=== PATIENT | female | born 1980 | race Caucasian/White ===

== ENCOUNTER 2022-03-28 14:56 | Outpatient (CLI) | payer BC, SELFPAY | END 2022-03-28 14:57 | disposition home or self-care (01) | PROVIDERS: PCP Family Medicine; Visit Provider Physician Assistant | DX: N93.8 Other specified abnormal uterine and vaginal bleeding (principal); Z12.4 Encounter for screening for malignant neoplasm of cervix | CPT/HCPCS: 84443; 87624; 88175 ==

== ENCOUNTER 2022-03-28 15:47 | Outpatient (CLI) | payer BC, SELFPAY ==
--- NOTE | 2022-03-28 16:00 | CRLHL7_ITS ---
For Patients: As a result of the Century Cures Act, medical imaging exams and procedure reports are released immediately into your electronic medical record. You may view this report before your referring provider. If you have questions, please contact your health care provider. INDICATION: AUB, right-sided pain/tenderness. TECHNIQUE: Ultrasound pelvis transvaginal for better assessment or to better visualize the endometrium. Real-time sonographic images with spectral and color Doppler imaging of the ovaries were obtained. COMPARISON: None. FINDINGS: Uterus: 9.5 x 5.9 x 4.4 cm. Normal echotexture of the myometrium. No masses. Endometrium: Transvaginal imaging was performed to better evaluate the endometrium. Endometrial thickness measures 8 mm. Per history an endometrial biopsy was done earlier on day of exam. Right ovary measures 4.0 x 2.5 x 2.2 cm and left ovary measures 3.4 x 1.7 x 1.4 cm. Anechoic 1.2 cm right ovarian cyst. 2.3 x 1.6 x 1.0 cm left ovarian cyst. No ovarian or adnexal masses. Normal blood flow in both ovaries. Cul-de-sac: No significant free fluid. IMPRESSION: 1. Endometrium measures 8 mm. No definite polyp or sub mucosal fibroid. 2. Bilateral ovarian cysts. Dictated by Hebert Ramos MD @ 03/29/2022 8:10:41 AM (Electronically Signed)
== END 2022-03-28 15:48 | disposition home or self-care (01) ==
LOC: RAD 15:48
PROVIDERS: PCP Family Medicine; Visit Provider Physician Assistant
DX: N93.8 Other specified abnormal uterine and vaginal bleeding (principal); R10.2 Pelvic and perineal pain; R93.89 Abnormal findings on diagnostic imaging of other specified body structures; N83.202 Unspecified ovarian cyst, left side; N83.201 Unspecified ovarian cyst, right side
CPT/HCPCS: 76830; 76856; 93976

== ENCOUNTER 2022-04-17 10:14 | Emergency (ER) | payer BC, SELFPAY ==
[2022-04-17 10:47] VITALS: BP 136/86; PULSE 76; RESP 18; TEMP 36.4; O2SAT 98; BMI 48.8
--- NOTE | 2022-04-17 13:15 | W.ED.CHARTNO ---
ED Chart Note Chart Note Details Date: 04/17/22 Details: left without being seen
--- OUTSIDE RECORDS SUMMARY | 2022-04-17 15:18 | XMS_ITS | Encounter Summary ---
:1980 Author Organization [facility] Address [address] [place] [address] Care Team Providers Name Role Phone Anny Daily APRN, TARIFF COMPILING CLERK Primary Care Provider [phone] Reason for Visit Procedure/Equipment (Routine) - Incomplete Specialty Diagnoses / Procedures Referred By Contact Refer red To Contact Diagnoses Vaginal bleeding in , first trimester Oliver Robledo MD Procedures US OB <14 Weeks W EV Single US OB Transvaginal [address] [place] [address] Referral ID Status Reason Start Date Expiration Date Visits V isits Requested Authorized [id number] Incomplete 10/25/2019 01/23/2021 1 1 Encounter Details Date Type Department Care Team Description 10/25/2019 Ancillary Procedure [facility] [address] [place] [address] Social History Tobacco Use Types Packs/Day Years Used Date Smoking Tobacco: Former Smokeless Tobacco: Never Comments: few a week Alcohol Use Standard Drinks/Week Comments Yes 0 (1 standard drink = 0.6 oz pure alcoho l) 3 per week Alcohol Habits Answer Date Recorded How often do you have a drink containing alcohol? Not asked How many drinks containing alcohol do you have on a typical Not asked day when you are drinking? How often do you have six or more drinks on one occasion? No t asked Comment: 3 per week 03/14/2019 Sex Assigned at Date Recorded Not on file documented as of this encounter Plan of Treatment Not on filedocumented as of this encounter Procedures Procedure Name Priority Date/Time Associated Diagnosis Comme nts US OB <14 WEEKS W Routine 10/25/2019 10:56 AM Vaginal bleeding in Results for this EV SINGLE SPINDLE CARVER , first procedure a re in trimester the results section. documented in this encounter Results US OB <14 Weeks W EV Single (10/25/2019 10:56 AM SPINDLE CARVER) Anatomical Region Laterality Modality Pelvis Ultrasound Specimen (Source) Anatomical Collection Method Collection Time Re ceived Time Location / / Volume Laterality 10/25/2019 10:26 AM SPINDLE CARVER Impressions 10/25/2019 11:03 AM SPINDLE CARVER COMPARISON: No similar comparison examinations TECHNIQUE: ??Transabdominal and transvag inal imaging was performed. ?? FINDINGS: Gestational sac: Unremarkable. Baxley-rump length measures 0.5 cm, corre sponding to 6w2d gestational age. Cardiac activity is not identified. Right Ovary: Not visualized. Left Ovary: Measures 3.3 x 1.8 x 2.2 cm and contains a probable corpus luteum. No suspicious adnexal masses. Free Fluid: No significant free fluid. GA by LMP:: ??09w6d GA by Prior US: ??N/A GA by today's US: ??6 weeks 2 days FAHAD by today's US: N/A IMPRESSION: There is evidence of an intr auterine gestation with yolk sac and pole. No heart tones are detected, possibly due to early gestational age. Recommend follow-up pelvic ultrasound in 7-10 days with serial beta-hCG. Procedure Note Salvador Pablo MD - 10/25/2019 IMPRESSION COMPARISON: No similar comparison examin ations TECHNIQUE: Transabdominal and transvagin al imaging was performed. FINDINGS: Gestational sac: Unremarkable. Baxley-rump length measures 0.5 cm, corre sponding to 6w2d gestational age. Cardiac activity is not identified. Right Ovary: Not visualized. Left Ovary: Measures 3.3 x 1.8 x 2.2 cm and contains a probable corpus luteum. No suspicious adnexal masses. Free Fluid: No significant free fluid. GA by LMP:: 09w6d GA by Prior US: N/A GA by today's US: 6 weeks 2 days FAHAD by today's US: N/A IMPRESSION: There is evidence of an intr auterine gestation with yolk sac and pole. No heart tones are detected, possibly due to early gestational age. Recommend follow-up pelvic ultrasound in 7-10 days with serial beta-hCG. Oliver Robledo MD RAD US documented in this encounter Visit Diagnoses Not on filedocumented in this encounter Care Teams Dough Catcher Relationship Specialty Start Date End Date Anny Daily, FIRE EXTINGUISHER MECHANIC, TARIFF COMPILING CLERK PCP - General Nurse Practitioner 03/20/18 [address] [place] [address] documented as of this encounter
--- OUTSIDE RECORDS SUMMARY | 2022-04-17 15:18 | XMS_ITS | Encounter Summary ---
:1980 Author Organization [facility] Address [address] [place] [address] Care Team Providers Name Role Phone Anny Daily Sven [place], CUPOLA PATCHER HELPER Primary Care Provider [phone] Reason for Visit Reason Comments APPOINTMENT REQUEST Change appoinment to virtual Encounter Details Date Type Department Care Team Description 06/24/2020 Telephone TRIA Radha Watson, [facility] (Change appoinment to [address] qureshi) [place] [address] [place], [place] [phone] (Wo rk) Social History Tobacco Use Types Packs/Day Years [...] on file documented as of this encounter Nursing Notes Kerry Coker - 06/24/2020 1:02 PM CDT Has the patient recently had surgery or an injury? No How may we help you today? Patient is calling in to see if she can change her appointment today to [facility] appointment. Describe your symptoms/concerns: na When did the issue start: na Have you been seen for this recently?: no [Sample Prep Technician/Appt Center: If yes, please include date and provider.] Is it okay to leave detailed message on your voicemail? yes [Sample Prep Technician/Appt Center: If this call is after 3 p.m., communicate to patient: If we are not able to get back to you by the end of the day and your symptoms worsen please contact the Careline] documented in this encounter Plan of Treatment Not on filedocumented as of this encounter Visit Diagnoses Not on filedocumented in this encounter Care Teams Graphics Editor Relationship Specialty Start Date End Date Anny Daily APRN, CUPOLA PATCHER HELPER PCP - General Nurse Practitioner 03/20/18 [address] [place] [id number] documented as of this encounter
--- OUTSIDE RECORDS SUMMARY | 2022-04-17 15:18 | XMS_ITS | Encounter Summary ---
:1980 Author [facility] Address [address] [place] [address] Care Team Providers Name Role Phone KillianAnny APRN, CNP Primary Care Provider [phone] Reason for Visit Reason Comments COUGH Encounter Details Date Type Department Care Team Description 11/27/2019 Nurse Triage [facility] TomasVernon MD COUGH Medicine [address] [place] [address] [place], [place] [address] [phone] Social History Tobacco Use Types Packs/Day Years [...] documented as of this encounter Nursing Notes Kindra Roper RN - 11/27/2019 12:25 PM CDT Spoke with pt. Developed cough and sinus congestion 7 days ago. Sinuses are mildly swollen, but not painful. Has chills. Cough is productive with yellow phlegm. Had some shortness of breath yesterday that is resolved today. Had a sore throat and body aches for the first few days that have now resolved. Denies fever, wheezing, difficulty breathing, blood tinged sputum. Problem list reviewed as related to this call. A phone visit was determined to be appropriate based on information provided during the consultationand to ensure the safety and care of our patients during the Coronavirus outbreak. Reason for Disposition ??? Patient wants to be seen Protocols used: [id number] Future Appointments Provider Department Center 11/27/2019 2:00 PM Trina Bernardo DO [facility] documented in this encounter Plan of Treatment Not on filedocumented as of this encounter Visit Diagnoses Not on filedocumented in this encounter Care Teams Computer Hardware Designer Relationship Specialty Start Date End Date Anny Daily, CHIEF TECHNICIAN X RAY, REGULAR SENIOR CARE PROVIDER PCP - General Nurse Practitioner 03/20/18 [address] [place] [address] documented as of this encounter
--- OUTSIDE RECORDS SUMMARY | 2022-04-17 15:18 | XMS_ITS | Encounter Summary ---
:1980 Author Organization [facility] Address [address] [place] [address] Care Team Providers Name Role Phone Anny Daily APRN, DISTRIBUTION SPEC Primary Care Provider [phone] Encounter Details Date Type Department Care Team Description 07/14/2020 Lab Visit [facility] ry Hip pain; [address] Chronic SI joint pain [place], [place] [address] Social History Tobacco Use Types Packs/Day Years [...] Name Priority Date/Time Associated Diagnosis Comme nts C-REACTIVE PROTEIN Routine 07/14/2020 1:26 PM Hip pain Results for this HOUSEHOLD PERSONAL ASSISTANT Chronic SI joint procedure a re in pain the results section. TSH, SENSITIVE Routine 07/14/2020 1:26 PM Hip pain Results for this (WITH REFLEX) HOUSEHOLD PERSONAL ASSISTANT Chronic SI joint procedure are in pain the results section. CK, TOTAL Routine 07/14/2020 1:26 PM Hip pain Results for this HOUSEHOLD PERSONAL ASSISTANT Chronic SI joint procedure a re in pain the results section. ESR Routine 07/14/2020 1:26 PM Hip pain Results for this HOUSEHOLD PERSONAL ASSISTANT Chronic SI joint procedure a re in pain the results section. documented in this encounter Results (ABNORMAL) CRP - C Reactive Protein (07/14/2020 1:26 PM HOUSEHOLD PERSONAL ASSISTANT) [facility] Method Time Signature C-Reactive 0.8 (H) 0.0 - 0.7 07/14/2020 [facility] Protein mg/dL 6:53 PM HOUSEHOLD PERSONAL ASSISTANT CENTRAL [facility] Specimen Anatomical Collection Method / Collection Time Recei mia Time (Source) Location / Volume Laterality Blood Venipuncture / 07/14/2020 1:26 07/14/2020 1:26 Unknown PM HOUSEHOLD PERSONAL ASSISTANT PM HOUSEHOLD PERSONAL ASSISTANT Cheryl Roche DO LAB_1 Performing Organization Address City/[facility]/ZIP Code Phon e Number [facility] [address] [address] (ABNORMAL) ESR - Sedimentation Rate (07/14/2020 1:26 PM HOUSEHOLD PERSONAL ASSISTANT) [facility] Method Time Signature Sedimentation Rate 21 (H) 0 - 20 07/14/2020 [facility] mm/hr 8:58 PM [facility] Specimen Anatomical Collection Method / Collection Time Recei mia Time (Source) Location / Volume Laterality Blood Venipuncture / 07/14/2020 1:26 07/14/2020 1:26 Unknown PM HOUSEHOLD PERSONAL ASSISTANT PM HOUSEHOLD PERSONAL ASSISTANT Cheryl Roche DO LAB_1 Performing Organization Address City/[facility]/ZIP [facility] Phon e Number [address] [address] TSH with Free T4 (if TSH Abnormal) (07/14/2020 1:26 PM HOUSEHOLD PERSONAL ASSISTANT) athologist Signature TSH, Reflex 1.47 0.30 - 07/14/2020 [facility] 4.50 7:08 PM HOUSEHOLD PERSONAL ASSISTANT CENTRAL LAB uIU/mL Specimen Anatomical Collection Method / Collection Time Recei mia Time (Source) Location / Volume Laterality Blood Venipuncture / 07/14/2020 1:26 07/14/2020 1:26 Unknown PM HOUSEHOLD PERSONAL ASSISTANT PM HOUSEHOLD PERSONAL ASSISTANT Narrative [facility] CENTRAL LAB - 07/14/2020 7:08 PM HOUSEHOLD PERSONAL ASSISTANT Lab will automatically reflex to Free T4 when TSH results are <0.30 uIU/mL or >4.50 mIU/mL. Cheryl Roche DO LAB_1 Performing Organization Address City/[facility]/ZIP Code [facility]on e Number [facility] [address] [address] CPK - CK Total (07/14/2020 1:26 PM HOUSEHOLD PERSONAL ASSISTANT) athologist Signature CK, Total 80 29 - 168 07/14/2020 [facility] U/L 6:53 PM HOUSEHOLD PERSONAL ASSISTANT CENTRAL LAB Specimen Anatomical Collection Method / Collection Time Recei mia Time (Source) Location / Volume Laterality Blood Venipuncture / 07/14/2020 1:26 07/14/2020 1:26 Unknown PM HOUSEHOLD PERSONAL ASSISTANT PM HOUSEHOLD PERSONAL ASSISTANT Cheryl Roche DO LAB_1 Performing Organization Address [facility] Phon e Number [facility] [address] [address] documented in this encounter Visit Diagnoses Diagnosis Hip pain Pain in joint, pelvic region and thigh Chronic SI joint pain (HRC) Disorders of sacrum documented in this encounter Care Teams Computer Technology Teacher Relationship Specialty Start Date End Date Anny Daily, EMPLOYMENT EDUCATIONAL COORD, DISTRIBUTION SPEC PCP - General Nurse Practitioner 03/20/18 [address] [place] [address] documented as of this encounter
--- OUTSIDE RECORDS SUMMARY | 2022-04-17 15:18 | XMS_ITS | Clinical Summary ---
:1980 [facility] Address [address] [place] [address] Care Team Providers Name Role Phone Anny Daily APRN, IMANI Primary Care Provider [phone] Source Comments You are receiving this document as you are listed as the primary care provider,follow-up provider, or the patient has been referred to you for consultation.This is in compliance with the Medicare and Medicaid EHR Incentive Program,which states Providers who transition their patient to another setting of careor provider of care or refers their patient to another provider of care shouldprovide summarycare record for each transition of care or referral. Fixetude Allergies Active Allergy Reactions Severity Noted Date Comments Adhesive Rash 06/19/2017 Tape adhesive Medications Medication Sig Dispensed Refills Start Date End Date Status 27-0.8 MG Take 1 Tab by 0 Active tablet mouth. B Complex Vitamins (B 0 Active COMPLEX-B12 TR OR) Iron, Ferrous 1 Tab. 0 Active Gluconate, 256 (28 FE) MG TABS Vitamin D, 800 Units. 0 Active Cholecalciferol, 400 units CAPS Zchtexp-Wyogjyawy-Pponr 0 Active in D (CALCIUM MAGNESIUM OR) Active Problems Patient Care Coordination Note Formatting of this note might be differe nt from the original. AMA Morbid Obesity Hx Gastric Bypass NIPT neg (XY) Neg AFP Gender Disclosed - Male Problem Noted Date Elderly primigravida in third trimester 09/28/2017 Obesity affecting in third trimester 018 Previous gastric bypass affecting , antepartu m 06/19/2017 Depression 11/14/2016 Alcohol use disorder, severe, dependence 11/14/2016 CRISTINA (generalized anxiety disorder) 01/13/2016 Parent-child relational problem 01/13/2016 GERD (gastroesophageal reflux disease) 02/24/2014 Overview: Takes Prevacid OTC DDD (degenerative disc disease) 12/01/2013 Iron deficiency anemia 12/01/2013 Migraine 12/01/2013 DJD (degenerative joint disease) 03/01/2012 Overview: low back and right hip Anemia 03/01/2012 Overview: iron deficiency anemia Resolved Problems Problem Noted Date Resolved Date AMA (advanced maternal age) primigravida 35+ 06/19/2017 09/28/2017 Adjustment disorder with depressed mood 04/27/2016 11/14/2016 Borderline personality disorder 03/01/2012 02/25/20 16 Adjustment disorder with depressed mood 03/01/2012 03/16/2016 Lumbago 07/23/2007 03/29/2015 Overview: Pain Low Back Immunizations Name Administration Dates Next Due Flu Vac Preserv Free (3+yrs) 08/07/2008 Influenza IIV4 (Quadrivalent) 0.5mL (30229) 06/19/2017 MMR 03/21/2016 TDAP (ADACEL) 01/10/2011 TDAP (BOOSTRIX) 12/31/2015 Td 05/15/1997 Tdap 09/28/2017 Family History Medical History Relation Name Comments No Known Family HIstory Problems Father Depression Mother Diabetes Mother Mental Disorder Mother Schizophrenia Mother Cataract Maternal Grandfather Glaucoma Maternal Grandfather Parkinsons Maternal Grandfather Cancer Maternal Grandmother breast Amblyopia/Strabismus Negative Family History Macular Degeneration Negative Family History Retinal Detachment Negative Family History Relation Name Status Comments Father Mother Alive Maternal Grandfather Alive Maternal Grandmother Social History Tobacco Use Types Packs/Day Years Used Date Smoking Tobacco: Former Smokeless Tobacco: Never Tobacco Cessation: Counseling Given: No Comments: few a week Alcohol Use Standard Drinks/Week Comments Yes 12 (1 standard drink = 0.6 oz pure alcoh ol) 3 per week Alcohol Habits Answer Date [...] Assigned at Date Recorded Not on file Last Filed Vital Signs Vital Sign Reading Time Taken Comments Blood Pressure 132/80 10/13/2020 3:20 PM COAL SAMPLER Pulse 79 10/25/2019 9:35 AM COAL SAMPLER Temperature 36.3 ??C (97.3 ??F) 10/13/2020 3:20 PM COAL SAMPLER Respiratory Rate 18 10/25/2019 9:35 AM COAL SAMPLER Oxygen Saturation 99% 10/25/2019 9:35 AM COAL SAMPLER Inhaled Oxygen Concentration - - Weight 155.1 kg (342 lb) 10/13/2020 3:20 PM COAL SAMPLER Height 177.8 cm (5' 10) 07/04/2018 10:33 AM CDT Body Mass Index 49.07 07/04/2018 10:33 AM CDT Plan of Treatment Health Maintenance Due Date Last Done Comments HepB (1) 1980 Mammogram 1980 COVID-19 Vaccine (#1) 1980 Pneumococcal (1 - PCV) 1985 Adult Preventive Visit 1997 Pap 03/29/2018 03/29/2015, 01/10/2011 Influenza (#1) 2022 06/19/2017, 08/07/2008 DTaP/Tdap/Td (5 - Tdap) 09/28/2027 09/28/2017, 12/31/2015, 01/10/2011, Additional history exists Zoster/Shingles (1 of 2) 2029 Hep C Screening (Preventive Completed 08/19/2015, 03/08/20 12 Services) HIV Screening (Preventive Completed 05/28/2017, 08/19/2015 Services) HPV Vaccine Aged Out No longer eligib le based on patient 's age to complete this topic HepA Aged Out No longer eligib le based on patient 's age to complete this topic Hib Aged Out No longer eligib le based on patient 's age to complete this topic IPV (Polio) Aged Out No longer eligib le based on patient 's age to complete this topic MCV4 Aged Out No longer eligib le based on patient 's age to complete this topic Insurance Payer Benefit Plan Subscriber ID Effective Phone Address Typ e / Group Dates BCBS BCBS PMA [id number] 2021-Pres [address] Med icaid BLUE [place] [id number] [place] [address] [facility] PM[facility] [id number] 2019-Pre Medicaid sent [id number] 2019-Pres Medicaid DENTAL PLAN ADULT COPAY ent DENTAL Lennie Irene Personal/Famil Self 1980 [address]Home) [place] [id number] Lennie Irene Personal/Famil Self [address] [address] Lennie Irene Personal/Famil Self 1980 [address]Home) [place] [id number] Lennie Irene Personal/Famil Self 1980 [address] [facility] (Home) [place] [id number] Care Teams Field Rep Relationship Specialty Start Date End Date Anny Daily, TRAIN CONTROL TECHNICIAN, GUIDE SETTER PCP - General Nurse Practitioner 03/20/18 [address] [place] [address]
--- OUTSIDE RECORDS SUMMARY | 2022-04-17 15:18 | XMS_ITS | Encounter Summary ---
:1980 Author Organization [facility] Address [address] [place] [address] Care Team Providers Name Role Phone KillianAnny APRN, BOILER WASHER Primary Care Provider [phone] Encounter Details Date Type Department Care Team Description 11/22/2019 elvis Leo [phone] Social History Tobacco Use Types Packs/Day Years [...] on file documented as of this encounter Progress Notes FAMILY MEDICINEELVIS PROVIDER - 11/22/2019 12:00 AM CDT elvis Treatment Plan Diagnosis Influenza Visit Date November 22, 2019 Lennie Irene Date of : 78 Provider Chanda Chau, Nurse Practitioner Note From Provider Was nice chatting with you Lennie! Be sure to read through & follow the enclosed treatment plan. Take care & thank you for using [facility]! Treatment Plan Since you have a virus which is likely influenza, let???s get you started on some iqmt-rbw-meevnqs medications to treat your symptoms. Because you???re within 48 hours, I???ve also prescribed an optional antiviral medication which may help decrease the severity and duration of your illness. Read the Antiviral Medications self-care tip in your treatment plan for help deciding if an antiviral is right for you.I sent your prescription to [facility] . I???ve also listed a few of the best ways to soothe your discomfort and some self-care tips to get you on the road to feeling better. If your symptoms don???t improve after 4 days, or if you have questions, select Help to Request a Call Back and we???ll adjust your treatment for free . Order(s) Tamiflu 75 mg capsule Take 1 capsule twice a day as directed for 5 days Note: Refills: None Sent To: [facility] [address] [place], [place] [id number] Treatment Plan Self Care Tip Topics Antiviral Medications You???re Contagious During a Coronavirus Outbreak Get Rest Stay Hydrated Throat Pain Fever & Pain Relief with Ibuprofen What to Expect If you follow the recommendations I made on the Treatment tab, your symptoms should improve in about4 days. If your symptoms don???t improve after 4 days, or if you have questions, select Help to Request a Call Back and we???ll adjust your treatment for free. What to Watch Out For Give us a call immediately if you experience: ??? Difficulty breathing or wheezing ??? Sudden dizziness ??? Confusion ??? Fevers greater than 103.0 ??F ??? Symptoms improve then worsen ??? Facial pain and pressure ??? Worsening throat pain ??? Productive cough ??? Diarrhea (more than 5 episodes in a 24 hour period)- typically in children My Conditions, Orders, Allergies as of November 22, 2019 Standard condition list None Current orders Tamiflu (oseltamivir) Allergies None [email or web address] Information [email or web address] by [email or web address] We are an online clinic open 26/03. If you have any questions or comments about this visit, please call or email [email or web address] documented in this encounter Plan of Treatment Not on filedocumented as of this encounter Visit Diagnoses Not on filedocumented in this encounter Care Teams General Internist And Physician Leader Relationship Specialty Start Date End Date Anny Daily, COMPRESSOR HOUSE OPERATOR, BOILER WASHER PCP - General Nurse Practitioner 03/20/18 [address] [place] [address] documented as of this encounter
--- OUTSIDE RECORDS SUMMARY | 2022-04-17 15:18 | XMS_ITS | Encounter Summary ---
:1980 Author Organization [facility] Address [address] [place] [address] Care Team Providers Name Role Phone StarkeAnny APRN, REVENUE COORDINATOR Primary Care Provider [phone] Encounter Details Date Type Department Care Team Description 03/30/2021 elvis Leo [phone] Social History Tobacco Use Types Packs/Day Years [...] encounter Progress Notes FAMILY MEDICINEELVIS PROVIDER - 03/30/2021 11:26 AM CDT elvis Treatment Plan Diagnosis Paronychia Visit Date March 30, 2021 Lennie Grayey Date of : 78 Provider Elizabeth Valles, Nurse Practitioner Note From Provider Shamar Hogue - Thanks for speaking with me today and for using Elvis. As we discussed, let's have you soak your toe 4 times a day in warm water. After soaking, dry your toe, apply the prescription topical antibiotic and cover with a bandaid. Repeat this process 3-4 times per day. Watch your toe for any signs of worsening infection - if you notice the redness is spreading up your toe or you notice that your entire toe becomes red, warm, or swollen, you should be seen in person right away in your nearest clinic, urgent care or ED as this may be a sign of a worsening infection. If you have questions at any time, you can always request a call back - we are here to help. Take care - Elizabeth, FISHING BOAT MATE Treatment Plan Since you have a bacterial infection, let?? try a topical antibiotic. I sent a prescription to [facility] . I??e also listed a few of the best ways to soothe your discomfort and some additional self-care tips to promote healing. If your symptoms don't improve after 4 days, or if you have questions, please use the Request a Call Back button and we??l discuss your next steps for free. Order(s) mupirocin 2% ointment Apply a small amount to affected area three times a day for 7 days Note: Refills: None Sent To: [facility] [address] [place] [address] [id number] Treatment Plan Self Care Tip Topics Pain Relief with Ibuprofen Warm Water Soaks What to Expect If you follow the recommendations I made on the Treatment tab, your symptoms should improve in about3-4 days. If your symptoms don't improve after 4 days, or if you have questions, please use the Request a Call Back button and we??l discuss your next steps for free. What to Watch Out For Give us a call if you experience: ??? Red streaks ??? High fever ??? Yellow or green foul smelling discharge ??? Increased swelling or pain ??? Any numbness or tingling My Conditions, Orders, Allergies as of March 30, 2021 Standard condition list None Current orders mupirocin (mupirocin) Allergies None [employer] [facility] [employer] We are an online clinic open 26/03. If you have any questions or comments about this visit, please call or email [email or web address] documented in this encounter Plan of Treatment Not on filedocumented as of this encounter Visit Diagnoses Not on filedocumented in this encounter Care Teams Vp Of Marketing Relationship Specialty Start Date End Date Anny Daily APRN, REVENUE COORDINATOR PCP - General Nurse Practitioner 03/20/18 [id number] [place] AMITA Bearden [id number] documented as of this encounter
--- OUTSIDE RECORDS SUMMARY | 2022-04-17 15:18 | XMS_ITS | Encounter Summary ---
:1980 Author Organization [facility] Address [address] [place] [address] Care Team Providers Name Role Phone Anny Daily APRN, FIELD AGENT Primary Care Provider [phone] Reason for Referral Procedure/Equipment (Routine) - Incomplete Specialty Diagnoses / Procedures Referred By Contact Refer red To Contact Diagnoses Hip pain Chronic SI joint pain ([facility]) Cheryl Roche DO Procedures XR Pelvis Bilat Hips 2+ Views [address] [place], [place] [address] Referral ID Status Reason Start Date Expiration Date Visits V isits Requested Authorized [id number] Incomplete 07/12/2020 10/11/2021 1 1 ERCIAL TIRE SERVICE TECHNICIAN Reason for Visit Reason Comments Video Visit CONSULT Encounter Details Date Type Department Care Team Description 07/12/2020 Telemedicine [facility] [address] Cheryl Roche Fibr omyalgia (Primary Dx); Rheumatology Z, DO Hip pain; [address] onic SI joint pain; [address] Fusion of sacral region of spine; [place], [place] De pression, unspecified depression type; [id number] CRISTINA (generalized anxiety disorder); [phone] (Wo rk) S/P gastric bypass; Breast fe eding status of mother Social History Tobacco Use Types Packs/Day Years [...] on file documented as of this encounter Patient Instructions Patient InstructionsCheryl Roche DO - 07/12/2020 9:30 AM CST Images from the original note were not included. - Labs to rule out other sources of pain - Updated x-ray of hips/si joints Start terrie Chi - slowly work your way up to 30-40 min 3-4 days week Here is some info on fibromyalgia. Fibromyalgia What is it? Fibromyalgia is a syndrome where the main symptoms are fatigue and widespread musculoskeletal pain, not explained by other causes. Typically, the pain is on both sides of the body and above and below the waist. If the pain is more localized to a particular area of the muscles and not all over, it is called myofascial pain. The pain is usually in the muscles, but can also be in the joint areas, where the muscles attach. Visible swelling and heat in the joint areas are not features of fibromyalgia (although sometimes they may feel that way to you). Many patients with fibromyalgia will have at least 11 of 18 of the tender points noted below. The common tender points of fibromyalgia include neck, upper back, sternal area, elbows, buttock, side of the hips, and knees. Other symptoms commonly found in patients with fibromyalgia may include: ??? Disturbed and poor quality sleep - people with fibromyalgia often do not get good ???restorative?? sleep, and may also have problems with leg cramps and restless legs. ??? Depression, anxiety and other mood changes ??? Numbness and tingling in extremities, called paresthesias (other causes such as neurological diseases may need to be ruled out) ??? Irritable bowel syndrome - constipation, diarrhea, bloating, abdominal cramping, often exacerbated by stress, and not explained by other bowel disorders. ??? Irritable bladder ??? Dry eyes and mouth ??? Headaches and facial pain - pain at the temporomandibular joint (TMJ) is common, as are tension and other types of headaches. ??? Heightened sensitivity - some patients will have an increased sensitivity to bright lights, loudnoises, odors such as perfumes, and even light touch. ??? Difficulty concentrating ??? Chest pain, usually from the rib cage and muscles. ??? Dizziness ??? Painful menstrual cramps Cause The exact cause of fibromyalgia is as yet not known. However, some research suggests that up to halfof cases of fibromyalgia may be associated with small fiber neuropathy. This is not too surprising, since many of the medications used for fibromyalgia are also used for neuropathy. Many other factors probably play a role. Recent research has suggested that genetics may contribute. Just as there are people whose genes result in ???strong?? bones or ???weak?? bones, there are people who have abnormalities in their pain processing (the way nerves respond to pain) which may predispose to developing fibromyalgia. External factors also can contribute to developing fibromyalgia. For example, if you beco me depressed, the depression can result in increased musculoskeletal pain. When the depression is treated, the pain can improve. Sometimes the chronic pain of fibromyalgia can increase the likelihood of developing depression, and in that case it is equally important to treat the depression. Poor sleepfor any extended period of time is another factor in the development of fibromyalgia. Healthy peoplewho are sleep deprived often begin to ???ache?? in their muscles. This can then result in a viciouscycle where pain further disturbs sleep which results in even more pain. Many factors like stress, depression, and lack of exercise can affect sleep quality. Frequent ???hot flashes?? during menopause can significantly affect sleep. Sleep can also be affected by poor ???sleep hygiene?? . For example,activities like reading in bed, eating in bed, watching TV in bed, etc., can result in ???confusing?? the body about the purpose of being in bed. Avoiding such activities in bed can allow for better sleep quality. Regular aerobic exercise may be preventative to developing fibromyalgia because it improves sleep and counteracts stress and depression. Along the same lines, lack of aerobic exercise can contribute to the development of fibromyalgia. Other conditions which cause pain including rheumatoidarthritis, connective tissue diseases like lupus and Sjogren???s syndrome can be associated with fibromyalgia. Sometimes a severe trauma (physical or emotional) can predispose to developing fibromyalgia. Risk factors ??? Female gender - Well over 90% of patients with fibromyalgia are women. ??? Younger age - It is unusual to have the first presentation of fibromyalgia occur after age 65. ??? Poor sleep - From whatever cause (pain, stress, restless legs, sleep apnea, legs cramps) can contribute to developing fibromyalgia. ??? Family history - If siblings or parents have had fibromyalgia, this may increase your risk. ??? 2% of the [place] population or 3-6 million people have fibromyalgia Evaluation Usually the laboratory and x-rays findings in fibromyalgia are normal. Some laboratory tests and imaging tests may be considered to rule out other potential causes of pain. The patient???s history andthe physical examination are the most important clues to diagnosing fibromyalgia. TREATMENT Health care providers A number of different providers may assist in the care of your fibromyalgia. Your primary care provider will usually be familiar with fibromyalgia and many of its treatments. Physical medicine and rehabilitation doctors are also experts in the treatment of non-inflammatory musculoskeletal pain and can be helpful in prescribing specific physical therapy regimens. Since many cases of fibromyalgia havesmall fiber neuropathy, visiting with a Neurologist about that may sometimes be helpful. Rheumatologists often assist with ruling out other causes of musculoskeletal pain and making recommendations fortreatment in difficult cases. Other providers such as doctors of chiropractic, physical therapists, o ccupational therapists, acupuncturists, and other alternative providers often play a role. Some psychologists have expertise in helping patients better manage chronic pain. Lpy-fifhyxpyhy-qznct treatments An exercise program is an essential part of counteracting fibromyalgia. You need to know a number ofthings before beginning a program. The best types of exercise to consider are low-impact aerobic activities. Aerobic means getting you hear rate up to 60-80% of maximum (220 minus age). For example, ifyou are 40 years old, the goal heart rate would be 0.6 (220-40) to 0.8(220-40), or 108 to 144. The goal is to find an activity that allows you to maintain this heart rate for 20-30 minutes at least 3 days per week. The best forms of exercise for fibromyalgia are walking, biking, swimming, and water aerobics. Probably the least imposing way to start is a water aerobics program in a heated pool. Many community pools such as the [facility] offer ???fibrocize?? water aerobics programs. A very important pointto remember is to start your exercise program slowly and gradually increase it. Try not to make the mistake of going out the first day and doing a hard workout for 30 minutes. Many patients will feel so poorly after this that they never go back. Start very slowly and gradually increase. It is important to remember, however, that many people will have an increase in pain for several weeks before exercise begins to decrease the pain. Try to persevere through this period. Exercises that cause significant postexercise pain are probably too intense. Other forms of exercise that include muscle strengthening like Pilates and Terrie Chi may be beneficial. Cognitive behavioral therapy is another very helpful intervention for fibromyalgia. Unfortunately, there is no ???magic bullet?? pill to take away all the symptoms of fibromyalgia. Therefore, learninghealthy techniques to better manage pain is imperative. Meditation and relaxation techniques providea way to refocus your mind away from the pain and cope better with it. This type of treatment can also help reduce stress. Occupational therapists at [facility] offer a program called the Lifestyle renewal program (see information on last page), where you can learn these techniques, and the majority of patients report that this is helpful. Pain psychologists at [facility] are another helpful resource. Carolin Kraus, PhD, Debbie Haq M.Ed, LP, Psychologist at [facility] [Chronic pain (headaches, fibromyalgia, etc.) and irritable bowel syndrome - evaluation and treatment], and Daquan Acosta, Ph.D., LP, Psychologist at [facility] (Chronic pain evaluation). Patients may schedule appointments as usual by contacting the Mental Health Department at . An intake counselor will request information on the presenting problem and referral source. A variety of other modalities are helpful for some patients. Massage can help loosen and relax tightmuscles. Acupuncture may help address abnormal pain processing and has been shown in a randomized trial to provide decreased pain. On a practical note, massage and acupuncture are not routinely coveredthrough insurance. Physical therapy with gentle stretching and muscle strengthening can help in someinstances, as can client care specialist. Warm water pool physical therapy at places like the [employer] and [facility] can be prescribed by your physician, if necessary. There are also a number of fibromyalgia support groups. Many patients ask if specific dietary modifications can help, and some patients have found for themselves that certain foods or diets can help or hinder with their pain. To date, there are no specific trials which have shown that one specific food or diet is helpful. However, weight loss can be helpful, and eating a balanced diet to help lose a few pounds is usually beneficial. Although no controlled trials support its recommendation, some patients report that getting regular exposure to morning sunlight can boost mood and wellbeing. Medications Because fibromyalgia is common, more and more medications are being studied and developed to help. While no medicine is yet curative, they can be a useful part of the treatment. The medications for fibromyalgia can in general be thought of to work on one of several areas. Some help with restoring good sleep. Anti- depressants can help treat depression, if it is present. Others work on pain. And some work on several of these areas. Medications which you and your doctor may consider include, but are not limited to: ??? Acetaminophen (Tylenol) - This is a mild, but safe analgesic when taken in doses of 1000 mg, three times daily. ??? NSAIDs (Nonsterioidal anti-inflammatory drugs) - Medications like ibuprofen (Advil) and naproxen(Aleve) sometimes offer some pain relief. They should be taken with food to avoid stomach irritationand not be continued if they offer no benefit. ??? Amitriptyline (Elavil) - Technically an antidepressant, this medicine when used in low doses is helpful for improving sleep. Typical dose would be 10 - 100 mg at night. Side effects could include dry mouth and grogginess. ??? Nortriptyline (Pamelor) - Technically an antidepressant, this medicine when used in low doses ishelpful for improving sleep. Typical dose would be 10 - 100 mg at night. Side effects could include dry mouth and grogginess. ??? Trazodone (Deseryl) - Technically an antidepressant, this medicine when used in low doses is helpful for improving sleep. Typical dose would be 25-150 mg at night. Side effects could include dry mouth and grogginess. ??? Doxepin (Sinequan) - Technically an antidepressant, this medicine when used in low doses is helpful for improving sleep. Typical dose would be 10 - 100 mg at night. Side effects could include dry mouth and grogginess. ??? Milnacipran (Savella) - This is a newer generation of antidepressant, which has shown benefits not only for depression, but also for improving pain, even in those without depression. It increases both serotonin and norepinephrine in the brain. It is now FDA approved for fibromyalgia. Typical dosing is 12.5 - 200 mg/day. ??? Duloxetine (Cymbalta) - This is a newer generation of antidepressant, which has shown benefits not only for depression, but also for improving pain, even in those without depression. It increases both serotonin and norepinephrine in the brain. It is now FDA approved for fibromyalgia. ??? Pramipexole (Mirapex) - This medication was first used to treat Parkinson???s disease and the Restless Leg Syndrome. Recent studies have shown that it can reduce pain levels in fibromyalgia. It hassurprisingly few side effects, but can cause nausea, transient anxiety, or weight loss. Typical doseis starting at 0.25 mg daily and gradually increasing to a maximum of 4.5 mg at night. ??? Gabapentin (Neurontin) - First developed to treat seizures, gabapentin helps block certain nervetransmissions and can reduce nerve pain called neuropathy. It can have some sedative properties and improve sleep in selected patients. Typical dose would be starting at 100 mg at night and gradually increasing as tolerated to as high as 800 mg three times daily. There is now a published trial suggesting that about half of patients get at least a 30% improvement in pain. Sleep can be significantly improved with gabapentin also. ??? Pregabalin (Lyrica) - This is a newer generation cousin of gabapentin, but is more expensive. Typically, the starting dose is 25 mg daily, increasing as tolerated to 150 mg three times daily as tolerated. Lyrica is FDA approved for fibromyalgia. ??? Muscle relaxers: Cyclobenzaprine (Flexeril), carisoprodol (Soma), methocarbamol (Robaxin), metaxalone (Skelaxin), tizanidine (Zanaflex) can be useful to relax to help with relaxation of tight muscles and because of their natural sedative effects can help with sleep also. ??? Opioid pain medicines (codeine, hydrocodone, oxycodone, morphine, etc) are typically NOT recommended as part of the medication program in fibromyalgia. They tend to not control the pain, creating aneed for more and more medication. Some pain specialists will consider their use in selected circumstances. Procedures Sometimes, several very tender muscular areas called trigger points can be injected by your Bed Setter or other providers with a mixture of local anesthetic and a small amount of cortisone. These are called trigger point injections and can often help provide relief to local areas of particularly sore muscles. Prognosis Fibromyalgia is a chronic condition, but can sometimes go away. The goal is to manage it through all of the interventions above. Of importance, it is not typically a progressive or crippling disorder and does not impair function of internal organs. Resources ??? National Fibromyalgia Association 757 002 9318 www.fmaware.org ??? National [place] [facility] Skin Diseases 828 544 9846 www.niams.nih.gov ??? [facility] 791 799 2237 www.[facility].gov What else can be tried? Sometimes, for a minority of patients, the above interventions do not result in control of fibromyalgia. In these cases, you should consider a chronic pain program. Several of these and additional resources are listed below: *[facility] a nursing practice for fibromyalgia patients, has opened at [address] [place] [address], to [facility]. Kim Mendes RN, FIELD AGENT and Micki Decker MS, RN, are the founders and co-owners. [phone] [facility]: may offer biofeedback, physical therapy, warm water pool, chronic pain rehabilitation programs; www.[facility].org ??? [facility] [phone] [facility] [place] [address] Chronic pain rehab program: [email or web address].org/[email or web address] ??? [facility] [place] [phone] [address] [place] [address] ??? [facility] [phone] 100 [place] [address] ??? [facility] [phone] 146 [place] [address] Aquatic therapy, Ada Edgar [phone] [facility] ([facility]) , [address] [place] [address]; Other locations including [place]. [facility] [phone] 2454 [facility], [address]th [place] [address] [facility] Dr[address] Leif Nichole Will 7235 [facility] [address] [email or web address] [facility] - they focus more on back pain, but offer cognitive behavioral therapy. [facility] [phone] [facility] [phone] [phone] www.[facility].[employer]ant (mainly physical and occupational therapy) [facility] (biofeedback, acupuncture, nutrition): [phone] [facility] [phone], 280 [facility] [address], [place] [address] Geovanny Suh MD [phone], network and threat support specialist [address] or [facility], [address] [place] [address] [phone] [facility] (will treat fibromyalgia and chronic pain syndrome in additionto head & neck disorders; also have MedX equipment for chronic back pain). [email or web address] ??? [place]: [address] [facility] [address] , [address], [address]; [phone] ??? [place]: [address] [facility], [address], [address]; [phone] ??? [place]: [address] [facility], [address]; [phone] ??? [place]: [address] [facility], [address], [address]; [phone] Lifestyle Renewal Program - At [facility] [place] The LifeStyle Renewal Program is an integrated program provided by Occupational Therapists to help people work with their symptoms from a variety of treatment techniques. It is customized for each patient. Research shows that an approach which encompasses social and psychological influences as well asphysical factors is effective for decreasing symptoms and improving quality of life. A holistic approach can ease symptoms and improve quality of life. Location: [place] Providers: Occupational Therapists with specialty training. Program: The LifeStyle Renewal Program is specifically tailored for each patient. This specialty program can be beneficial for a wide variety of symptoms and diagnoses, including, but not limited to: Chronic pain Cancer Asthma Depression/Anxiety Myofascial pain syndrome Chronic Fatigue Syndrome Headache/ Migraine Fibromyalgia Low back pain Irritable Bowel Syndrome Rheumatoid Arthritis Other stress related problems Our Program Focus: 1. Deal with the underlying source of pain 2. Establish a partnership between therapist and patient 3. Increase understanding - provide education 4. Use idvi-ebih-ydhhmk therapies to reframe pain/symptom experience 5. Modify behaviors to improve function 6. Relieve stress 7. Set up support systems 8. Increase physical activity 9. Improve sleep Education is provided in the areas of pacing, exercise, relaxation, sleep hygiene, body mechanics, postural awareness, ergonomics, Qigong, Healing Touch, problem solving and adaptive equipment. How to Contact: General information/scheduling ERCIAL TIRE SERVICE TECHNICIAN documented in this encounter Progress Notes Cheryl Roche DO - 07/12/2020 9:30 AM CST Rheumatology Consult Note video Encounter Encounter Date: 07/12/2020 Name of Requesting Clinical Staff: No referring provider defined for this encounter. Reason for consult: Joint pain Subjective: Patient is a 40 y.o. female. HISTORY OF PRESENT ILLNESS Patient has a past medical history of obesity, s/p gastric bypass, acid reflux, depression, osteoarthritis of the lumbar spine, status post right SI joint fusion (20 years ago), who is being evaluated over video visit today for diffuse arthralgias/myalgias. Patient notes that she has had pain in her low back that she about ages 15. Eventually, she was seenby a back pain specialist, and around the age of 19 had a right SI joint fusion because of arthritis. She does feel that that was helpful however the past several she has had increasing pain in the area. She notes the pain is in the low back, but also in the groin, and size of the hip. These areas that are most painful however she does have diffuse body pain from head to toe that is also contributing. Pain in the back is in the Mid to low back over the tail bone and up through lumbat spine. Has pain shooting down leg. No numbness or tingling in the legs. May have intermittent numbness right big toe and under neath, comes and goes. Has weakness in bohth legs, worse on the right. In the past, she has had x-rays of the lumbar spine and pelvic region which did show possible osteoarthritic changes, this was last done in 2012. She has not had any repeat imaging since this time. Shebelieves that she had injection into her right hip many years ago but does not recall if this was helpful. She has also had injections in her low back, primarily L5-S1 area. Has pain in every joint as well including hands. Has general pain from head to toe - started over A year ago. Has been occurring every day for the last month. Does ave some good days but generally is there all day/every day.. Overall pain does seem to woren with activity \especially the day after she has been more active, cleaning around the house. She describes the pain as a burning achy pain. She has stiffness in the morning in all areas will last for several minutes. She believes there has been swelling in the soft tissues, primarily in the hands with some difficulty getting her rings on. NO rashes. No hair loss, mouth sores, no Raynaud symptoms. Has had some dry eye and mouth. She has had weight gain over the past several years as the of her children. Has tried ibuprofen, 800mg does not help. Takes iron, vitamin D, potassium, omega 3. Pre-, calcum and magneiusm. Social hx: no alcoholl or tobacco. No working outside home. Has 2 kids, 4 and 2. Family Hx: no autoimmune history that she is aware. Review of SystemsReview of systems form filled out the the patient for today's visit was reviewed, and is as noted above/ Patient Active Problem List Diagnosis ??? DJD (degenerative joint disease) ??? Anemia ??? GERD (gastroesophageal reflux disease) ??? Previous gastric bypass affecting , antepartum ??? CRISTINA (generalized anxiety disorder) (HRC) ??? Parent-child relational problem ??? Depression (HRC) ??? Alcohol use disorder, severe, dependence (HRC) ??? Elderly primigravida in third trimester ??? Obesity affecting in third trimester ??? DDD (degenerative disc disease) ??? Iron deficiency anemia ??? Migraine Past Surgical History: Procedure Laterality Date ??? CHOLECYSTECTOMY 08/04/2013 Lap Aruna ??? GASTRIC BYPASS 02/27/2014 Lap Catalino-En-Y Gastric Bypass ??? HX APPENDECTOMY 1992 Open, ruptured ??? LAPAROSCOPY 08/04/2013 Lap Aruna ??? LAPAROSCOPY 02/27/2014 Lap Catalino-En-Y Gastric Bypass ??? OTHER SURGICAL HISTORY 2003 SI joint fusion and cage ??? WISDOM TEETH EXTRACTION 1990 OB History 3 Para 2 Term 2 0 AB 0 Living 1 SAB 0 TAB 0 Ectopic 0 Multiple 0 Live Births 1 Family History Problem Relation Age of Onset ??? Cataract Maternal Grandfather ??? Glaucoma Maternal Grandfather ??? Parkinsons Maternal Grandfather ??? Mental Disorder Mother ??? Schizophrenia Mother ??? Depression Mother ??? Diabetes Mother ??? No Known Family HIstory Problems Father ??? Cancer Maternal Grandmother breast ??? Macular Degeneration Negative Family History ??? Retinal Detachment Negative Family History ??? Amblyopia/Strabismus Negative Family History Social History Socioeconomic History ??? Marital status: Spouse name: Carlos ??? Number of children: 1 ??? Years of education: Not on file ??? Highest education level: Not on file Occupational History ??? Occupation: Homemaker Social Needs ??? Financial resource strain: Not on file ??? Food insecurity Worry: Not on file Inability: Not on file ??? Transportation needs Medical: Not on file Non-medical: Not on file Tobacco Use ??? Smoking status: Former Smoker ??? Smokeless tobacco: Never Used ??? Tobacco comment: few a week Substance and Sexual Activity ??? Alcohol use: Yes Alcohol/week: 0.0 standard drinks Comment: 3 per week ??? Drug use: No ??? Sexual activity: Yes Partners: Male control/protection: None Lifestyle ??? Physical activity Days per week: Not on file Minutes per session: Not on file ??? Stress: Not on file Relationships ??? Social connections Talks on phone: Not on file Gets together: Not on file Attends temple service: Not on file Active member of club or organization: Not on file Attends meetings of clubs or organizations: Not on file Relationship status: Not on file ??? Intimate partner violence Fear of current or ex partner: Not on file Emotionally abused: Not on file Physically abused: Not on file Forced sexual activity: Not on file Other Topics Concern ??? Bike Helmet Yes ??? [place] Yes ??? Exercise Yes Comment: 7 days per week ??? Guns in home No ??? Seat Belt Yes ??? Special Diet No ??? Weight Concern Yes Social History Narrative ??? Not on file Allergies Allergen Reactions ??? Adhesive Rash Tape adhesive Outpatient Encounter Medications as of 07/12/2020 Medication Sig Note Dispense Refill ??? B Complex Vitamins (B COMPLEX-B12 TR OR) ??? Mnajjfd-Tjlikkeqe-Srqqfjk D (CALCIUM MAGNESIUM OR) ??? Iron, Ferrous Gluconate, 256 (28 FE) MG TABS 1 Tab. 11/12/2017: [facility] Sig: As directed 1 tablet once daily. ??? oseltamivir (TAMIFLU) 75 MG capsule TK 1 C PO BID UTD ??? potassium chloride SA (KLOR-CON) 10 MEQ controlled release tablet Take 10 mEq by mouth two timesa day. ? ? 27-0.8 MG tablet Take 1 Tab by mouth. 05/28/2017: Received from: [facility] Received Sig: Take 1 tablet by mouth once daily. Indications: ??? Vitamin D, Cholecalciferol, 400 units CAPS 800 Units. No facility-administered encounter medications on file as of 07/12/2020. Objective: EXAM LMP 08/15/2019 (Exact Date) General: Comfortable appearing, well developed, well nourished. HEENT: anicteric, noninjected sclerae; no nasal discharge; no oral ulcers, erythema or exudates. Skin: no rash or perigungual erythema Neuro: alert, normal muscle bulk and tone, normal gait. MSK: no joint swelling, tenderness, excessive warmth, or range of motion abnormalities unless noted below: Musculoskeletal:There were paired painful tender points at the occiput, neck, trapezius, supraspinatus, anterior ribs, subacromial bursa, epicondyles, gluteals, trochanters, pes anserine and bilateral shins to self palpation. Neck: Back: Patient has tenderness to self palpation of the lumbar spine and SI joints Upper extremities: Lower extremities: Stance & gait: LABS &/or IMAGING Results for orders placed or performed during the hospital encounter of 10/25/19 UA with Microscopic Result Value Ref Range Urine Color Straw Straw-Yellow Urine Clarity Clear Clear Specific [place], Urine 1.010 1.005 - 1.030 PH Urine 6.5 5.0 - 8.0 Protein, Urine Qual (mg/dL) Negative Neg/Trace Glucose Urine Qual (mg/dL) Negative Negative Ketones, Urine (mg/dL) Negative Negative Urobilinogen, Urine (EU/dL) 0.2 <2.0 Bilirubin Urine Negative Negative Blood, Urine Small (A) Neg/Trace Nitrite Urine Negative Negative Leukocyte Est. Negative Negative Red Blood Cells 4-7 (A) 0 - 3 /HPF White Blood Cells 0-5 0 - 5 /HPF Bacteria Occasional (A) None Seen /HPF Urine Source Clean Catch HCG for -Quantitative (HCG) Result Value Ref Range HCG, Quantitative 14,953 (H) <=4 mIU/mL Complete Blood Count-W/Diff Result Value Ref Range WBC 10.9 (H) 3.5 - 10.5 x10(9)/L RBC 4.21 3.90 - 5.03 x10(12)/L Hemoglobin 12.6 12.0 - 15.5 g/dL HCT 39.4 34.9 - 44.5 % MCV 93.6 80.0 - 100.0 fL MCH 29.9 27.6 - 33.3 pg MCHC 32.0 31.5 - 35.2 g/dL RDW 12.3 11.9 - 15.5 % Platelets 307 150 - 450 x10(9)/L Automated NRBC 0 <=0 /100 WBC Neutrophil Absolute 7.2 (H) 1.7 - 7.0 10(9)/L Lymphocyte Absolute 2.6 1.0 - 4.8 10(9)/L Monocytes Absolute 0.7 0.2 - 0.9 10(9)/L Eosinophil Absolute 0.3 0.0 - 0.5 10(9)/L Basophil Absolute 0.1 0.0 - 0.3 10(9)/L Immature Gran % 0.4 0.0 - 0.5 % Wet Prep (WTPRP) Result Value Ref Range Fungal Elements Detected (A) Not detected Clue Cells Not Detected Not Detected White Blood Cells Not Detected Not Detected Trich Vaginalis Not Detected Not detected Assessment/Recommendations: 1. Fibromyalgia 2. Hip pain 3. Chronic SI joint pain (HRC) 4. Fusion of sacral region of spine 5. Depression, unspecified depression type (HRC) 6. CRISTINA (generalized anxiety disorder) (HRC) 7. S/P gastric bypass 8. Breast feeding status of mother Patient has a history of multisite osteoarthritis involving the lumbar spine, SI joints, hip joints,status post right SI joint fusion in her early 20s, who is being evaluated over video visit for diffuse body pain. Patient has multiple tender points on self examination today, along with a history of depression/anxiety, fatigue all of which would be suggestive of fibromyalgia. We discussed the diagnosis of fibromyalgia and the patient was given a handout on this syndrome. We discussed that this is a diagnosis of exclusion but that based on her/his exam and the extensive workup that has been done I feel fairly confidant that this is the cause of at least some of her/his symptoms, including her/his pain. We talked about contributing factors such as stress, lack of aerobic exercise, mood disorders, genetics, and chronic non-restorative sleep. The concept of central sensitization and fibromyalgia as a central neurologic pain syndrome was reviewed, it is not a disorder of the joints or muscles themselves, and not an inflammatory or rheumatic disorder. I recommended consideration of a low impact aerobic exercise program, pursuing non medication therapies such as relaxation training, massage, acupuncture, terrie tru. In terms of medications, we reviewed some of the most often used medications which can include tricyclics and trazodone for sleep, duloxetine (Cymbalta) and mi lnacipran (Savella) for mood and pain, tramadol (Ultram) for pain, gabapentin (Neurontin) or pregabalin (Lyrica) for sleep and pain, pramipexole (Mirapex) for pain, and muscle relaxers. Opioid pain medication are not recommended (usually) for fibromyalgia. Even with these available medications, most only help symptoms in 60-70% of patients and only reduce pain score by 40%. Pharmacologic treatment still does not fully address this condition and there is no current curative treatment for this condition yet. Lopez to getting better is to sleep at night and move the body in the daytime. We also discussed that it is a common syndrome and medication adjustments can be made in the primary care setting. At this point, I am recommending patient start Terrie Chi. She is familiar with this modality. She should start slowly, working way up to 30-40 minutes 3 4 days a week. I stressed the importance of movement and the lack and movement can cause worsening fibromyalgia pain. We discussed that this is a diagnosis of exclusion. Will check inflammatory markers CK and TSH. If these are unremarkable then this points even more towards a diagnosis of fibromyalgia. Regards to her low back/groin pain, I think could be worthwhile to update her x- rays as it has been 7 years since this was last done. If there is evidence of 1st osteoarthritis in the hips or SI joints, could consider referral to PMR or Radiology for image guided injection. Will hold off on scheduling follow-up pending further workup. Patient agrees to above plan and all questions were answered Thank you very much for involving me in this patients care Time spent - 60 minutes Greater than 50% of that spent on counseling and education This note created with voice recognition software and may contain typographical errors Cheryl Roche DO ERCIAL TIRE SERVICE TECHNICIAN documented in this encounter Plan of Treatment Not on filedocumented as of this encounter Results (ABNORMAL) CRP - C Reactive Protein (07/14/2020 1:26 PM COMMERCIAL TIRE SERVICE TECHNICIAN) [facility] Method Time Signature C-Reactive 0.8 (H) 0.0 - 0.7 07/14/2020 [facility] Protein mg/dL 6:53 PM COMMERCIAL TIRE SERVICE TECHNICIAN [facility] Specimen Anatomical Collection Method / Collection Time Recei mia Time (Source) Location / Volume Laterality Blood Venipuncture / 07/14/2020 1:26 07/14/2020 1:26 Unknown PM COMMERCIAL TIRE SERVICE TECHNICIAN PM COMMERCIAL TIRE SERVICE TECHNICIAN Cheryl Roche DO LAB_1 Performing Organization Address City/[facility]/ZIP Code Phon e Number [facility] [address] [address] (ABNORMAL) ESR - Sedimentation Rate (07/14/2020 1:26 PM COMMERCIAL TIRE SERVICE TECHNICIAN) [facility] Method Time Signature Sedimentation Rate 21 (H) 0 - 20 07/14/2020 [facility] mm/hr 8:58 PM COMMERCIAL TIRE SERVICE TECHNICIAN [facility] Specimen Anatomical Collection Method / Collection Time Recei mia Time (Source) Location / Volume Laterality Blood Venipuncture / 07/14/2020 1:26 07/14/2020 1:26 Unknown PM COMMERCIAL TIRE SERVICE TECHNICIAN PM COMMERCIAL TIRE SERVICE TECHNICIAN Cheryl Roche DO LAB_1 Performing Organization Address [facility]/ZIP Code Phon e Number [address] [address] TSH with Free T4 (if TSH Abnormal) (07/14/2020 1:26 PM COMMERCIAL TIRE SERVICE TECHNICIAN) athologist Signature TSH, Reflex 1.47 0.30 - 07/14/2020 [facility] 4.50 7:08 PM COMMERCIAL TIRE SERVICE TECHNICIAN [facility] uIU/mL Specimen Anatomical Collection Method / Collection Time Recei mia Time (Source) Location / Volume Laterality Blood Venipuncture / 07/14/2020 1:26 07/14/2020 1:26 Unknown PM COMMERCIAL TIRE SERVICE TECHNICIAN PM COMMERCIAL TIRE SERVICE TECHNICIAN Narrative [facility] - 07/14/2020 7:08 PM COMMERCIAL TIRE SERVICE TECHNICIAN Lab will automatically reflex to Free T4 when TSH results are <0.30 uIU/mL or >4.50 mIU/mL. Cherylaraseli Roche DO LAB_1 Performing Organization Address City/[facility]/ZIP Code Phon e Number [facility] [address] [address] CPK - CK Total (07/14/2020 1:26 PM COMMERCIAL TIRE SERVICE TECHNICIAN) athologist Signature CK, Total 80 29 - 168 07/14/2020 [facility] U/L 6:53 PM COMMERCIAL TIRE SERVICE TECHNICIAN [facility] Specimen Anatomical Collection Method / Collection Time Recei mia Time (Source) Location / Volume Laterality Blood Venipuncture / 07/14/2020 1:26 07/14/2020 1:26 Unknown PM COMMERCIAL TIRE SERVICE TECHNICIAN PM COMMERCIAL TIRE SERVICE TECHNICIAN Cheryl Roche DO LAB_1 Performing Organization Address City/State/ZIP Code Phon e Number [facility] [address] [address] XR Pelvis Bilat Hips 2+ Views (07/14/2020 1:19 PM COMMERCIAL TIRE SERVICE TECHNICIAN) Anatomical Region Laterality Modality Pelvis, Hip Computed Radiography Specimen (Source) Anatomical Collection Method Collection Time Re ceived Time Location / / Volume Laterality 07/14/2020 1:19 PM COMMERCIAL TIRE SERVICE TECHNICIAN Narrative 07/14/2020 1:27 PM COMMERCIAL TIRE SERVICE TECHNICIAN EXAM: XR PELVIS BILAT HIPS 2+ VIEWS LOCATION: [facility] DATE/TIME: 07/14/2020 1:19 PM INDICATION: Sacroiliac joint pain, groin pain status post fusion. COMPARISON: 09/09/2012 IMPRESSION: Fusion hardware at the right SI joint in an unchanged alignment. No fracture. Left SI joint is unremarkable. The hips are symmetric and unremarkable. Procedure Note Jonathan Breaux MD - 07/14/2020Formatt ing of this note might be different from the original. EXAM: XR PELVIS BILAT HIPS 2+ VIEWS LOCATION: [facility] DATE/TIME: 07/14/2020 1:19 PM INDICATION: Sacroiliac joint pain, groin pain status post fusion. COMPARISON: 09/09/2012 IMPRESSION: Fusion hardware at the right SI joint in an unchanged alignment. No fracture. Left SI joint is unremarkable. The hips are symmetric and unremarkable. Cheryl Roche DO RAD GD documented in this encounter Visit Diagnoses Diagnosis Fibromyalgia - Primary Mylagia and myositis, unspecified Hip pain Pain in joint, pelvic region and thigh Chronic SI joint pain (HRC) Disorders of sacrum Fusion of sacral region of spine Depression, unspecified depression type CRISTINA (generalized anxiety disorder) (HRC) Generalized anxiety disorder S/P gastric bypass Bariatric surgery status Breast feeding status of mother care and examination of lacta ting mother Hip pain Pain in joint, pelvic region and thigh Chronic SI joint pain (HRC) Disorders of sacrum documented in this encounter Care Teams Dye House Hand Relationship Specialty Start Date End Date Burnet, Anny M, DELICATESSEN CLERK, FIELD AGENT PCP - General Nurse Practitioner 03/20/[address] [place] [id number] documented as of this encounter
--- OUTSIDE RECORDS SUMMARY | 2022-04-17 15:18 | XMS_ITS | Encounter Summary ---
:1980 Author Organization [facility] Address [address] [place] [address] Care Team Providers Name Role Phone Anny Daily APRN, TRAVEL PHYSICAL THERAPIST Primary Care Provider [phone] Reason for Visit Reason Comments Tenderness, Breast Encounter Details Date Type Department Care Team Description 10/12/2020 Nurse Triage [place] Found, No Pcp, Sven Parrish Tenderness, Breast Obstetrics/Gynecolog y [address] [facility] [address] [place] [place] [address] [address] [place], [place] [address] Social History Tobacco Use Types Packs/Day Years [...] documented as of this encounter Nursing Notes Jocelyn Garcia RN - 10/13/2020 12:40 PM CST Future Appointments Date Time Provider Department Center 10/13/2020 3:30 PM Ayla Barroso DO [facility] IRON LOADER Li Cervantes RN - 10/13/2020 9:15 AM CST Offered appt for this AM in [place]. Patient states she is only able to come in at the end of the day as her recently started a new job. Reviewed with patient she can call back later to check for openings. Otherwise ok to go to urgent care. She voices understanding and acceptance of this advice and will call back if any further questions or concerns. No future appointments. IRON LOADER Lilia Lucas MD - 10/13/2020 8:08 AM CST Pt should be seen for evaluation today or tomorrow. I do not have openings this week, and pt not known to me. Please inquire w/ her primary OB re: work in. IRON LOADER Meghan Salter RN - 10/12/2020 4:19 PM CST Clinician Action: Appointment Work In Reason protocol for breast tenderness/possible infection Clinician Next Step: Patient IS expecting a call back from care team Specific Request(s): 1. Patient noticed a reddened area on L breast that is tender and somewhat warm to the touch about 1/5 weeks ago. States she feels the area is getting bigger. Denies nipple discharge but is currently still so not certain. Denies fever but believes there may be some slight swelling without a palpable lump. Patient has difficulty with childcare R/T starting new job this week. Wondering if she could be worked into a schedule at end of day this week. Declines UC at this time. Reason for Disposition ??? Breast looks infected (spreading redness, feels hot or painful to touch) and no fever Protocols used: BREAST [id number] IRON LOADER documented in this encounter Plan of Treatment Not on filedocumented as of this encounter Visit Diagnoses Not on filedocumented in this encounter Care Teams Wood Machine Carver Relationship Specialty Start Date End Date Anny Daily APRN, TRAVEL PHYSICAL THERAPIST PCP - General Nurse Practitioner 03/20/18 [address] [place] [id number] documented as of this encounter
--- OUTSIDE RECORDS SUMMARY | 2022-04-17 15:18 | XMS_ITS | Encounter Summary ---
:1980 [facility] Address [address] [place] [address] Care Team Providers Name Role Phone Anny Daily Sven [place], TEST AND BALANCE ENGINEER Primary Care Provider [phone] Reason for Visit Reason Comments CONSULT Encounter Details Date Type Department Care Team Description 10/13/2020 Office Visit Lin 151Ayla Barrera Breast inf ection Obstetrics/Gynecolog y M, DO (Primary Dx) [facility] [facility] [address] [facility] [place] [address] [address] [place] [address] Social History Tobacco Use Types Packs/Day Years [...] on file documented as of this encounter Last Filed Vital Signs Vital Sign Reading Time Taken Comments Blood Pressure 132/80 10/13/2020 3:20 PM MANAGER LANDSCAPE Pulse - - Temperature 36.3 ??C (97.3 ??F) 10/13/2020 3:20 PM MANAGER LANDSCAPE Respiratory Rate - - Oxygen Saturation - - Inhaled Oxygen Concentration - - Weight 155.1 kg (342 lb) 10/13/2020 3:20 PM MANAGER LANDSCAPE Height - - Body Mass Index 49.07 07/04/2018 10:33 AM CDT documented in this encounter Progress Notes Ayla Barroso, DO - 10/13/2020 3:30 PM CST Office Visit Subjective: Date of visit: 10/13/2020 Chief complaint: Chief Complaint Patient presents with ??? CONSULT Lennie Josemanuel Irene is a 40 y.o. who presents for discussion of breast infection. She notes few week history of increased redness and warm to left breast. The area has increased in size and she notes possible spreading. She is currently . She states it initially looked like a spider bit however has increased in size. She has had a normal milk supply. Denies any discharge from site. No blood from nipples. Periods monthly, regular. She does not use control. Did use control as a teenager. No prior history of similar in past. She has had clogged ducts in past and notes this feels different. She had green discharge from nipple at age 19 and ultrasound was obtained, which resulted in a duct problem which was opened up with wire. No fevers. Bowel movements and voiding normal. Family history of breast cancer in her maternal grandmother. Menstrual History: OB History 3 Para 2 Term 2 0 AB 1 Living 2 SAB 1 TAB 0 Ectopic 0 Multiple Live Births 2 Patient's last menstrual period was 09/18/2020 (approximate). Past Medical History: Diagnosis Date ??? Anemia 03/01/2012 ??? Anxiety (HRC) ??? Arthritis ??? Caries ??? Depression (HRC) 03/01/2012 ??? Gastric reflux ??? Heartburn ??? Irregular menstrual cycle ??? Migraines ??? Obesity (HRC) ??? Rash ??? Trauma ??? Varicella Past Surgical History: Procedure Laterality Date ??? CHOLECYSTECTOMY 08/04/2013 Lap Aruna ??? GASTRIC BYPASS 02/27/2014 Lap Catalino-En-Y Gastric Bypass ??? HX APPENDECTOMY 1992 Open, ruptured ??? LAPAROSCOPY 08/04/2013 Lap Aruna ??? LAPAROSCOPY 02/27/2014 Lap Catalino-En-Y Gastric Bypass ??? OTHER SURGICAL HISTORY 2003 SI joint fusion and cage ??? WISDOM TEETH EXTRACTION 1990 Family History Problem Relation Age of Onset ??? Cataract Maternal Grandfather ??? Glaucoma Maternal Grandfather ??? Parkinsons Maternal Grandfather ??? Mental Disorder Mother ??? Schizophrenia Mother ??? Depression Mother ??? Diabetes Mother ??? No Known Family HIstory Problems Father ??? Cancer Maternal Grandmother breast ??? Macular Degeneration Negative Family History ??? Retinal Detachment Negative Family History ??? Amblyopia/Strabismus Negative Family History Social History Tobacco Use ??? Smoking status: Former Smoker ??? Smokeless tobacco: Never Used ??? Tobacco comment: few a week Substance Use Topics ??? Alcohol use: Yes Alcohol/week: 12.0 standard drinks Types: 12 Standard drinks or equivalent per week Comment: 3 per week Objective: BP 132/80 (BP Location: Right Arm, BP Cuff Size: Large) Temp 36.3 ??C (97.3 ??F) (Oral) Wt (!) 342 lb (155.1 kg) LMP 09/18/2020 (Approximate) Yes BMI 49.07 kg/m?? General: no acute distress, sitting comfortably in room Breast: left breast with 2 cm erythematous lesion, somewhat warm to touch, no palpable cords. No discharge or masses, abscess palpated. Nipple normal. Right breast normal appearing, no masses, skin lesions palpated. No lymphadenopathy in axilla or clavicular area bilaterally Assessment: Diagnosis and Associated Orders ICD-10-CM 1. Breast infection N61.0 YMM Mammogram Diag Bilat W 3D Danilo CANCELED: MM US Breast Bilat Plan: Discussed with patient differential diagnosis. Possible mastitis, however very localized. Recommend starting antibiotic and will obtain breast ultrasound to evaluate for further abnormalities. Discussed with patient if no improvement or worsening, would consider referral to Breast Center for further recommendations Orders Placed This Encounter ??? YMM Mammogram Diag Bilat W 3D Danilo ??? dicloxacillin (DYNAPEN) 500 MG capsule Total time 25 minutes independently reviewing lab results, imaging studies, performing exam, and preparing plan of care for patient. GER LANDSCAPE documented in this encounter Plan of Treatment Not on filedocumented as of this encounter Visit Diagnoses Diagnosis Breast infection - Primary Inflammatory disease of breast documented in this encounter Care Teams Order Expediter Relationship Specialty Start Date End Date Anny Daily APRN, TEST AND BALANCE ENGINEER PCP - General Nurse Practitioner 03/20/[address] [place] [address] documented as of this encounter
--- OUTSIDE RECORDS SUMMARY | 2022-04-17 15:18 | XMS_ITS | Encounter Summary ---
:1980 [facility] [address] [place] [address] Care Team Providers Name Role Phone KillianAnny APRN, IMANI Primary Care Provider [phone] Reason for Visit Reason Comments HIP PAIN Encounter Details Date Type Department Care Team Description 06/24/2020 Telemedicine [facility] Radha Goodman Right hip pain (Primary Dx); CENTER MD Rashaad History of spinal fusion [address] [facility] AMITA Moore [address] [facility] [place] [phone] (Wo rk) Social History Tobacco Use Types [...] documented as of this encounter Progress Notes Radha Goodman MD - 06/24/2020 3:40 PM CDT Lennie Irene [id number] 1980 [facility] Consultation 06/24/2020 This was initially an in person visit and then converted to a video visit due to fear of [facility] and patient is at home Chief Complaint: Right Hip Pain History of Present Illness: Lennie Irene is a 40 y.o. female who reports right hip pain. No history of trauma, injury, or surgery. Localizes pain at SI joint, groin, and proximal hamstring and occasionally radiates down anteriorthigh and posterior leg to calf. Denies bowel/bladder dysfunction, numbness, tingling, catching, or s welling. Has catching. Pain with forward flexion (anterior leg), twisting, sitting, getting in and out of the car, figure four, and stairs. States she is hoisting pelvis up when stepping with her left foot. Range of motion is restricted. Unclear if sleep is disrupted due to pain. Is limping due to pain. Has treated with Ibuprofen, ice. X-rays of pelvis and lateral hip from 09/09/12 showed possible slight degenerative changes of the hips. Has been evaluated in the past for pelvis and right sided low back pain by Marjan Tejeda. Status post right SI joint fusion. Underwent right L5-S1 facet injection with Marjan Tejeda in 2012. Was seen by Julio Kuhn on 10/08/12 and diagnosed with trochanteric bursitis and referred to PT. Did not undergo a corticosteroid injection. Imaging was compromised due to body habitus. States she underwent a fluoroscopic guided hip corticosteroid injection many years ago for hip impingement--details unclear. Allergies: Adhesive Current Medications: B Complex vitamins Smarhnx-sufnhnqpb-rqahzkv D Iron Oseltamivir Potassium chloride vitamins Vitamin D Past Medical History: Anemia Anxiety Arthritis Depression Gastric reflux Migraines Obesity Varicella Past Surgical History: [place] teeth extraction Cholecystectomy Appendectomy Laparoscopy Gastric bypass Physical Exam: LMP 08/15/2019 (Exact Date) GENERAL: Alert female. No apparent distress. MUSCULOSKELETAL: Right Lower extremity/Pelvis/Lumbar spine: Forward flexion causes posterior leg pain. Able to flex, extend, torse left and right, and bend side to side without restricted range of motion or pain. Tender to self palpation at lateral pelvis. Nontender to self palpation at thigh. NEUROVASCULAR: Non-antalgic gait. Heel and toe walk intact. Assessment: 1. Right hip pain 2. History of right SI joint fusion 3. Possible lumbar radiculopathy Patient's etiology of pain is multifactorial. Unable to determine definitive diagnosis over the phone. She has seen Marjan Tejeda in the past for lumbar and SI joint issues and has not yet returned tosurgeon regarding current SI joint pain status post fusion. Explained that evaluation in person would be much more helpful to assess hip pain and clarify definitive diagnosis. Plan: 1. Recommend scheduling in person clinic visit, if not comfortable with this could start a course ofvirtual PT 2. Consider contacting surgeon for right SI joint fusion 3. OTC pain meds as needed 4. Follow up as needed Patient reports all her questions were answered. Total time: 30 minutes Referring Provider: PATIENT SELF REFERRAL, [place] [address] Primary Care Provider: [id number] [place] [address] Scribe Disclosure: Scribed for Radha Goodman MD by Lo Wilson, Bobbin Marker. I, Radha Goodman MD, have personally reviewed and agree with the information entered by the scribe. documented in this encounter Plan of Treatment Not on filedocumented as of this encounter Visit Diagnoses Diagnosis Right hip pain - Primary Pain in joint, pelvic region and thigh History of spinal fusion Arthrodesis status documented in this encounter Care Teams Travelift Operator Relationship Specialty Start Date End Date Anny Daily, TECHNICAL COORDINATOR, [place] PCP - General Nurse Practitioner 03/20/18 [address] [place] [address] documented as of this encounter
--- OUTSIDE RECORDS SUMMARY | 2022-04-17 15:18 | XMS_ITS | Encounter Summary ---
:1980 Author Organization [facility] Address [address] [place] [address] Care Team Providers Name Role Phone Anny Dialy APRN, BRAKES INSPECTOR Primary Care Provider [phone] Reason for Visit Procedure/Equipment (Routine) - Incomplete Specialty Diagnoses / Procedures Referred By Contact Refer red To Contact Diagnoses Hip pain Chronic SI joint pain (HRC) Cheryl Roche, Procedures XR Pelvis Bilat Hips 2+ Views [address] [place], [place] [address] Referral ID Status Reason Start Date Expiration Date Visits V isits Requested Authorized [id number] Incomplete 07/12/2020 10/11/2021 1 1 Encounter Details Date Type Department Care Team Description 07/14/2020 [facility] Hip pain ; Procedure [facility], DO Chronic SI joint pain [address] [place], [place] [address] [facility] [phone] [place] [address] Social History Tobacco Use Types Packs/Day Years [...] Name Priority Date/Time Associated Diagnosis Comme nts XR PELVIS BILAT Routine 07/14/2020 1:19 PM Hip pain Results for this HIPS 2+ VIEWS MOLD TOOLER Chronic SI joint procedure are in pain the results section. documented in this encounter Results XR Pelvis Bilat Hips 2+ Views (07/14/2020 1:19 PM MOLD TOOLER) Anatomical Region Laterality Modality Pelvis, Hip Computed Radiography Specimen (Source) Anatomical Collection Method Collection Time Re ceived Time Location / / Volume Laterality 07/14/2020 1:19 PM MOLD TOOLER Narrative 07/14/2020 1:27 PM MOLD TOOLER EXAM: XR PELVIS BILAT HIPS 2+ VIEWS LOCATION: [facility] DATE/TIME: 07/14/2020 1:19 PM INDICATION: [...] XR PELVIS BILAT HIPS 2+ VIEWS LOCATION: [facility] DATE/TIME: 07/14/2020 1:19 PM INDICATION: Sacroiliac joint pain, groin pain status post fusion. COMPARISON: 09/09/2012 IMPRESSION: Fusion hardware at the right SI joint in an unchanged alignment. No fracture. Left SI joint is unremarkable. The hips are symmetric and unremarkable. Cheryl CANDELARIO GD documented in this encounter Visit Diagnoses Diagnosis Hip pain Pain in joint, pelvic region and thigh Chronic SI joint pain (HRC) Disorders of sacrum documented in this encounter Care Teams Development Representative Relationship Specialty Start Date End Date Anny Daily, VEGETABLE TRIMMER, BRAKES INSPECTOR PCP - General Nurse Practitioner 03/20/18 [address] [place] [id number] documented as of this encounter
--- OUTSIDE RECORDS SUMMARY | 2022-04-17 15:18 | XMS_ITS | Encounter Summary ---
:1980 Author [facility] Address [address] [place] [address] Care Team Providers Name Role Phone Crys Dailyrenee Machuca APRN, STRAW BOSS Primary Care Provider [phone] Reason for Visit Reason Onset Date Comments Phone Visit 11/27/2019 Encounter Details Date Type Department Care Team Description 11/27/2019 Phone Visit [facility] Trina Bernardoiti s, unspecified Medicine DO Cheryl chronicity, [address] [facility] [address] [facility] unspeci ed location [facility] CHIP ROJO (Primary Dx) [place], [place] [address] [place], [place] [phone] Social History Tobacco Use Types Packs/Day Years [...] documented as of this encounter Progress Notes Trina Bernardo DO - 11/27/2019 2:00 PM CDT Subjective: Today's visit with Lennie Irene was conducted as a scheduled telephone visit. The conversation today addressed sinus pressure and productive cough. She has had 4 prior e-visits or phone visits for this in the past 4 days and diagnosed with flu vs viral sinusitis. The patient reports that she has had symptoms for the past 7 days. Her symptoms are changing every day. She reports that initially had sore throat that resolved after 3 days. She also was having body aches and SOB up until today. Also reports a fever of 99.0F at the beginning of symptoms but none now. Now has productive cough and PND and boggy, swollen sinuses. She reports that she has had sinus infections in the past and this feels similar. Has had some ear pressure and headaches. She is a stay at home. Her 2 children have had runny noses and cough. Objective: Health Maintenance Due Topic Date Due ??? Mammogram 1980 ??? Pneumococcal (1 of 1 - Risk 1-dose series - PPSV23) 1985 ??? Adult Preventive Visit 1997 ??? Pap 03/29/2018 ??? Influenza (1) 05/04/2019 BP Readings from Last 1 Encounters: 10/25/19 118/67 Assessment/Plan: Lennie was seen today for phone visit. Diagnoses and all orders for this visit: Sinusitis, unspecified chronicity, unspecified location: will treat her as a sinus infection given her symptoms. Discussed SE of this medication. I also discussed the possibility of COVID with her symptoms but that she would not qualify for testing. I discussed given her symptoms over the past week would recommend quarantine for possible COVID along with her family. Discussed guidelines for COVID-19 and quarantine and return to work: At least 3 days (72 hours) have passed since recovery defined as resolution of fever without the useof fever-reducing medications and improvement in respiratory symptoms (e.g., cough, shortness of breath); and, At least 7 days have passed since symptoms first appeared Discussed if SOB returns, high fevers, worsening cough needs to be seen in one of our respiratory sites. - amoxicillin-clavulanate (AUGMENTIN) 875-125 mg per tablet; Take 1 Tablet by mouth two times a day for 10 days. Total time spent with patient: 11-20 minutes This phone visit is a scheduled telephone visit. Disposition: home This visit was conducted via phone. The patient was in a safe place to conduct this visit. They werenot operating a motor vehicle at the time of this visit. Trina Bernardo DO 2:59 PM 11/27/2019 documented in this encounter Plan of Treatment Not on filedocumented as of this encounter Visit Diagnoses Diagnosis Sinusitis, unspecified chronicity, unspe cified location - Primary documented in this encounter Care Teams Manager Port Relationship Specialty Start Date End Date Anny Daily, CYLINDER BLOCK HOLE RELINER, STRAW BOSS PCP - General Nurse Practitioner 03/20/18 [address] [place] [address] documented as of this encounter
--- OUTSIDE RECORDS SUMMARY | 2022-04-17 15:18 | XMS_ITS | Encounter Summary ---
:1980 Author Organization [facility] Address [address] [place] [address] Care Team Providers Name Role Phone Anny Daily APRN, MARKETING INSTRUCTOR Primary Care Provider [phone] Reason for Referral Procedure/Equipment (Routine) - Incomplete Specialty Diagnoses / Procedures Referred By Contact Refer red To Contact Diagnoses Vaginal bleeding in , first trimester Oliver Robledo MD Procedures US OB <14 Weeks W EV Single US OB Transvaginal [address] [place] [address] Referral ID Status Reason Start Date Expiration Date Visits V isits Requested Authorized [id number] Incomplete 10/25/2019 01/23/2021 1 1 TRONIC COMPONENTS ASSEMBLER Reason for Visit Reason Comments VAGINAL BLEEDING Encounter Details Date Type Department Care Team Description 10/25/2019 Hospital Encounter [place] [facility] Kurtis Robledo MD Vaginal bleeding in , first tri mester; Care [address] [place] [address] [id number] [phone] Social History Tobacco Use Types Packs/Day Years [...] Sign Reading Time Taken Comments Blood Pressure 118/67 10/25/2019 9:35 AM ELECTRONIC COMPONENTS ASSEMBLER Pulse 79 10/25/2019 9:35 AM ELECTRONIC COMPONENTS ASSEMBLER Temperature 36.6 ??C (97.8 ??F) 10/25/2019 9:35 AM ELECTRONIC COMPONENTS ASSEMBLER Respiratory Rate 18 10/25/2019 9:35 AM ELECTRONIC COMPONENTS ASSEMBLER Oxygen Saturation 99% 10/25/2019 9:35 AM ELECTRONIC COMPONENTS ASSEMBLER Inhaled Oxygen Concentration - - Weight - - Height - - Body Mass Index - - documented in this encounter Medications at Time of Discharge Medication Sig Dispensed Refills Start Date End Date B Complex Vitamins (B 0 COMPLEX-B12 TR OR) Yqcptet-Nyscnsaxk-Efrzgsq 0 D (CALCIUM MAGNESIUM OR) Iron, Ferrous Gluconate, 1 Tab. 0 256 (28 FE) MG TABS 27-0.8 MG tablet Take 1 Tab by mouth. 0 Vitamin D, 800 Units. 0 Cholecalciferol, 400 units CAPS potassium chloride SA Take 10 mEq by mouth 0 10/13/2020 (KLOR-CON) 10 MEQ two times a day. controlled release tablet documented as of this encounter ED Notes Oliver Robledo MD - 10/25/2019 11:29 AM CST SUBJECTIVE: Lennie Irene is a 39 y.o.female Chief Complaint: Chief Complaint Patient presents with ??? VAGINAL BLEEDING HPI: 3 years old female 3 para 2 presented with her today to clinic with vaginal spotting she was thinking that she is maybe 10 week . An on and off she has some spotting when she weeping. She denies any clear vaginal discharge she denies any abdominal pain or contraction.She denies any association with vaginal intercourse. She stated that with her 1st also shehad a lot of spotting throat or her . She did not see the OB so far she has appointment. Soon next week with them. ROS: Complete ROS was negative other than what was cited above. Social History: Social History Tobacco Use ??? Smoking status: Former Smoker ??? Smokeless tobacco: Never Used ??? Tobacco comment: few a week Substance Use Topics ??? Alcohol use: Yes Alcohol/week: 0.0 standard drinks Comment: 3 per week ??? Drug use: No Past Medical History: Patient Active Problem List Diagnosis ??? DJD (degenerative joint disease) ??? Anemia ??? GERD (gastroesophageal reflux disease) ??? Previous gastric bypass affecting , antepartum ??? CRISTINA (generalized anxiety disorder) ([facility]C) ??? Parent-child relational problem ??? Depression ([facility]) ??? Alcohol use disorder, severe, dependence ([facility]) ??? Elderly primigravida in third trimester ??? Obesity affecting in third trimester Adverse Drug Reactions: Adhesive Medications: B Complex Vitamins, Sclnvwx-Xjmdvvdst-Pqebcam D, Iron (Ferrous Gluconate), Vitamin D (Cholecalciferol), potassium chloride SA, and OBJECTIVE: Vital Signs: BP 118/67 (BP Location: Right Arm, BP Cuff Size: Large) Pulse 79 Temp 36.6 ??C (97.8 ??F) (Oral) Resp 18 LMP 08/15/2019 (Exact Date) SpO2 99% . General: Alert oriented pleasant obese in no distress HEENT: Negative Lymphatic: No enlarged Chest: Lungs Heart: Without murmur Abdomen: Abdomen obese soft no rebound no guarding no masses no tenderness. External genitalia appear. Within normal spatula my exam she has some dark brown discharge in the posterior vaginal pole I do not see any active bleeding for the cervix os. No tenderness in the os. Or in her cervix Musculoskeletal: Joints symmetrical for range of motion active passive Skin: No rash Labs: Labs Reviewed UA WITH MICROSCOPIC - Abnormal; Notable for the following components: Result Value Blood, Urine Small (*) Red Blood Cells 4-7 (*) Bacteria Occasional (*) All other components within normal limits HCG, QUANTITATIVE, SERUM - Abnormal; Notable for the following components: HCG, Quantitative 14,953 (*) All other components within normal limits Narrative: Expected ranges Negative: <5 mIU/mL Indeterminate: 5-25 mIU/mL Positive: >25 mIU/mL Suggest repeat testing of indeterminate result in 72 hours. COMPLETE BLOOD COUNT-W/DIFF - Abnormal; Notable for the following components: WBC 10.9 (*) Neutrophil Absolute 7.2 (*) All other components within normal limits VAGINAL WET PREP - Abnormal; Notable for the following components: Fungal Elements Detected (*) All other components within normal limits Narrative: Methodology: Manual Microscopic CBC AND DIFFERENTIAL PANEL Narrative: The following orders were created for panel order Complete Blood Count W/Diff (CBC). Procedure Abnormality Status --------- ------ Complete Blood Count-W/Diff[[id number]] Abnormal Final result Please view results for these tests on the individual orders. X-Rays: Us Ob <14 Weeks W Ev Single Result Date: 10/25/2019 COMPARISON: No similar comparison examinations TECHNIQUE: Transabdominal and transvaginal imaging was performed. FINDINGS: Gestational sac: Unremarkable. [place]-rump length measures 0.5 cm, corresponding to 6w2d gestational age. Cardiac activity is not identified. Right Ovary: Not visualized. Left Ovary: Measures 3.3 x 1.8 x 2.2 cm and contains a probable corpus luteum. No suspicious adnexal masses. Free Fluid: No significant free fluid. GA by LMP:: 09w6d GA by Prior US: N/A GA by today's US: 6 weeks2 days FAHAD by today's US: N/A IMPRESSION: There is evidence of an intrauterine gestation with yolk sac and pole. No heart tones are detected, possibly due to early gestational age. Recommend follow-up pelvic ultrasound in 7-10 days with serial beta-hCG. ASSESSMENT: 1. Vaginal bleeding in , first trimester 2. Dizziness CBC with diff white blood cell count 10.9 note refill 7.2 which until 7 appear. Within normal. Wet prep fungus element was detected Ultrasound there is evidence of on inter total uterine L gestational with yolk suck and pole. No heart activity is or tone was detected possible early gestational age. Was recommended to have another 1 7-10 days and also serial beta HCG to be done which has been ordered today again. PLAN: Urine a small amount of blood but otherwise unremarkable 11 days ago she did had the same amount of the blood in her urine. Wet prep for the yeast infection we going to use nkeq-zkd-aqqnsme Monistat her hCG it came 14, 953 Medications - No data to display Medications Prescribed this Visit None Discharge instructions are on file. The patient was discharged ambulatory and in stable condition. TRONIC COMPONENTS ASSEMBLER documented in this encounter Plan of Treatment Not on filedocumented as of this encounter Procedures Procedure Name Priority Date/Time Associated Comments Diagnosis US OB <14 WEEKS W EV Routine 10/25/2019 10:56 Vaginal bleeding in Results for this SINGLE AM ELECTRONIC COMPONENTS ASSEMBLER , first procedure a re in trimester the results section. UA WITH MICROSCOPIC STAT 10/25/2019 10:15 Vaginal bleeding in Results for this AM ELECTRONIC COMPONENTS ASSEMBLER , first procedure a re in trimester the results section. CBC AND DIFFERENTIAL STAT 10/25/2019 10:09 Vaginal bleeding in Results for this PANEL AM ELECTRONIC COMPONENTS ASSEMBLER , first procedure a re in trimester the results Dizziness section. COMPLETE BLOOD STAT 10/25/2019 10:09 Vaginal bleeding in Re sults for this COUNT-W/DIFF AM ELECTRONIC COMPONENTS ASSEMBLER , first procedure a re in trimester the results Dizziness section. HCG, QUANTITATIVE, STAT 10/25/2019 10:09 Vaginal bleeding i n Results for this SERUM AM ELECTRONIC COMPONENTS ASSEMBLER , first procedur e are in trimester the results section. VAGINAL WET PREP STAT 10/25/2019 9:58 AM Vaginal bleeding i n Results for this ELECTRONIC COMPONENTS ASSEMBLER , first procedure a re in trimester the results section. documented in this encounter Results US OB <14 Weeks W EV Single (10/25/2019 10:56 AM ELECTRONIC COMPONENTS ASSEMBLER) Anatomical Region Laterality Modality Pelvis Ultrasound Specimen (Source) Anatomical Collection Method Collection Time Re ceived Time Location / / Volume Laterality 10/25/2019 10:26 AM ELECTRONIC COMPONENTS ASSEMBLER Impressions 10/25/2019 11:03 AM ELECTRONIC COMPONENTS ASSEMBLER COMPARISON: No similar comparison examinations TECHNIQUE: ??Transabdominal and transvag inal imaging was performed. ?? FINDINGS: Gestational sac: Unremarkable. [place]-rump length measures 0.5 cm, corre sponding to [...] imaging was performed. FINDINGS: Gestational sac: Unremarkable. [place]-rump length measures 0.5 cm, corre sponding to [...] serial beta-hCG. Oliver Robledo MD RAD US (ABNORMAL) UA with Microscopic (10/25/2019 10:15 AM ELECTRONIC COMPONENTS ASSEMBLER) [facility] Method Time Signature Urine Color Straw Straw-Yello 10/25/2019 [facility] w 10:25 AM LABORATORY ELECTRONIC COMPONENTS ASSEMBLER Urine Clarity Clear Clear 10/25/2019 [facility] 10:25 AM LABORATORY ELECTRONIC COMPONENTS ASSEMBLER Specific 1.010 1.005 - 10/25/2019 [facility] [place], 1.030 10:25 AM LABORATORY Urine ELECTRONIC COMPONENTS ASSEMBLER PH Urine 6.5 5.0 - 8.0 10/25/2019 [facility] 10:25 AM LABORATORY ELECTRONIC COMPONENTS ASSEMBLER Protein, Negative Neg/Trace 10/25/2019 [facility] Urine Qual 10:25 AM LABORATORY (mg/dL) ELECTRONIC COMPONENTS ASSEMBLER Glucose Urine Negative Negative 10/25/2019 [facility] Qual (mg/dL) 10:25 AM LABORATORY ELECTRONIC COMPONENTS ASSEMBLER Ketones, Negative Negative 10/25/2019 [facility] Urine (mg/dL) 10:25 AM LABORATORY ELECTRONIC COMPONENTS ASSEMBLER Urobilinogen, 0.2 <2.0 10/25/2019 [facility] Urine (EU/dL) 10:25 AM LABORATORY ELECTRONIC COMPONENTS ASSEMBLER Bilirubin Negative Negative 10/25/2019 [facility] Urine 10:25 AM LABORATORY ELECTRONIC COMPONENTS ASSEMBLER Blood, Urine Small (A) Neg/Trace 10/25/2019 [facility] 10:25 AM LABORATORY ELECTRONIC COMPONENTS ASSEMBLER Nitrite Urine Negative Negative 10/25/2019 [facility] 10:25 AM LABORATORY ELECTRONIC COMPONENTS ASSEMBLER Leukocyte Negative Negative 10/25/2019 [facility] Est. 10:25 AM LABORATORY ELECTRONIC COMPONENTS ASSEMBLER Red Blood 4-7 (A) 0 - 3 /HPF 10/25/2019 [facility] Cells 10:25 AM LABORATORY ELECTRONIC COMPONENTS ASSEMBLER White Blood 0-5 0 - 5 /HPF 10/25/2019 [facility] Cells 10:25 AM LABORATORY ELECTRONIC COMPONENTS ASSEMBLER Bacteria Occasional (A) None Seen 10/25/2019 [facility] /HPF 10:25 AM LABORATORY ELECTRONIC COMPONENTS ASSEMBLER Urine Source Clean Catch 10/25/2019 [facility] 10:25 AM LABORATORY ELECTRONIC COMPONENTS ASSEMBLER Specimen Anatomical Collection Method Collection Time Receive d Time (Source) Location / / Volume Laterality Urine URINE SPECIMEN Non-blood 10/25/2019 10:15 0 COLLECTION, CLEAN Collection / AM ELECTRONIC COMPONENTS ASSEMBLER 10:[address] CATCH / Unknown Unknown Oliver Robledo MD LAB_1 Performing Organization Address City/State/ZIP Code Phon e Number [facility] [address] [place] [address] (ABNORMAL) Complete Blood Count-W/Diff (10/25/2019 10:09 AM ELECTRONIC COMPONENTS ASSEMBLER) [facility] Method Time Signature WBC 10.9 (H) 3.5 - 10.5 10/25/2019 [facility] x10(9)/L 10:14 AM ELECTRONIC COMPONENTS ASSEMBLER LABORATORY RBC 4.21 3.90 - 10/25/2019 [facility] 5.03 10:14 AM ELECTRONIC COMPONENTS ASSEMBLER LABORATORY x10(12)/L Hemoglobin 12.6 12.0 - 10/25/2019 [facility] 15.5 g/dL 10:14 AM ELECTRONIC COMPONENTS ASSEMBLER LABORATORY HCT 39.4 34.9 - 10/25/2019 [facility] 44.5 % 10:14 AM ELECTRONIC COMPONENTS ASSEMBLER LABORATORY MCV 93.6 80.0 - 10/25/2019 [facility] 100.0 fL 10:14 AM ELECTRONIC COMPONENTS ASSEMBLER LABORATORY MCH 29.9 27.6 - 10/25/2019 [facility] 33.3 pg 10:14 AM ELECTRONIC COMPONENTS ASSEMBLER LABORATORY MCHC 32.0 31.5 - 10/25/2019 [facility] 35.2 g/dL 10:14 AM ELECTRONIC COMPONENTS ASSEMBLER LABORATORY RDW 12.3 11.9 - 10/25/2019 [facility] 15.5 % 10:14 AM ELECTRONIC COMPONENTS ASSEMBLER LABORATORY Platelets 307 150 - 450 10/25/2019 [facility] x10(9)/L 10:14 AM ELECTRONIC COMPONENTS ASSEMBLER LABORATORY Automated NRBC 0 <=0 /100 10/25/2019 [facility] WBC 10:14 AM ELECTRONIC COMPONENTS ASSEMBLER LABORATORY Neutrophil 7.2 (H) 1.7 - 7.0 10/25/2019 [facility] Absolute 10(9)/L 10:14 AM ELECTRONIC COMPONENTS ASSEMBLER LABORATORY Lymphocyte 2.6 1.0 - 4.8 10/25/2019 [facility] Absolute 10(9)/L 10:14 AM ELECTRONIC COMPONENTS ASSEMBLER LABORATORY Monocytes 0.7 0.2 - 0.9 10/25/2019 [facility] Absolute 10(9)/L 10:14 AM ELECTRONIC COMPONENTS ASSEMBLER LABORATORY Eosinophil 0.3 0.0 - 0.5 10/25/2019 [facility] Absolute 10(9)/L 10:14 AM ELECTRONIC COMPONENTS ASSEMBLER LABORATORY Basophil 0.1 0.0 - 0.3 10/25/2019 [facility] Absolute 10(9)/L 10:14 AM ELECTRONIC COMPONENTS ASSEMBLER LABORATORY Immature Gran % 0.4 0.0 - 0.5 10/25/2019 [facility] % 10:14 AM ELECTRONIC COMPONENTS ASSEMBLER LABORATORY Specimen Anatomical Collection Method / Collection Time Recei mia Time (Source) Location / Volume Laterality Blood Venipuncture / 10/25/2019 10:09 0 Unknown AM ELECTRONIC COMPONENTS ASSEMBLER 10:09 AM ELECTRONIC COMPONENTS ASSEMBLER Oliver Robledo MD LAB_1 Performing Organization Address City/State/ZIP Code Phon e Number [facility] [address] [place] [address] (ABNORMAL) HCG for -Quantitative (HCG) (10/25/2019 10:09 AM ELECTRONIC COMPONENTS ASSEMBLER) [facility] Method Time Signature HCG, 14,953 <=4 10/25/2019 [facility] Quantitative (H) mIU/mL 5:43 PM ELECTRONIC COMPONENTS ASSEMBLER LABORATORY Specimen Anatomical Collection Method / Collection Time Recei mia Time (Source) Location / Volume Laterality Blood Venipuncture / 10/25/2019 10:09 0 Unknown AM ELECTRONIC COMPONENTS ASSEMBLER 10:09 AM ELECTRONIC COMPONENTS ASSEMBLER Narrative [facility] - 10/25/2019 5:43 P M ELECTRONIC COMPONENTS ASSEMBLER Expected ranges Negative: <5 mIU/mL Indeterminate: 5-25 mIU/mL Positive: >25 mIU/mL Suggest repeat testing of indeterminate result in 72 hours. Oliver Robledo MD LAB_1 Performing Organization Address City/[facility]/ZIP Code Phon e Number [facility] [address] [place] [address] (ABNORMAL) Wet Prep (WTPRP) (10/25/2019 9:58 AM ELECTRONIC COMPONENTS ASSEMBLER) [facility] Method Time Signature Fungal Detected (A) Not detected 10/25/2019 [facility] Elements 10:14 AM LABORATORY ELECTRONIC COMPONENTS ASSEMBLER Clue Cells Not Detected Not Detected 10/25/2019 [facility] 10:14 AM LABORATORY ELECTRONIC COMPONENTS ASSEMBLER White Blood Not Detected Not Detected 10/25/2019 [facility] Cells 10:14 AM LABORATORY ELECTRONIC COMPONENTS ASSEMBLER Trich Not Detected Not detected 10/25/2019 [facility] Vaginalis 10:14 AM LABORATORY ELECTRONIC COMPONENTS ASSEMBLER Specimen Anatomical Collection Method Collection Time Receive d Time (Source) Location / / Volume Laterality Swab (Source VAGINAL CERVIX / Non-blood 10/25/2019 9:58 AM 10/25 9:59 Required) Unknown Collection / ELECTRONIC COMPONENTS ASSEMBLER AM ELECTRONIC COMPONENTS ASSEMBLER Unknown Narrative [facility] - 10/25/2019 10:14 AM ELECTRONIC COMPONENTS ASSEMBLER Methodology: ??Manual Microscopic Oliver Robledo MD LAB_1 Performing Organization Address [facility]/ZIP Code Phon e Number [facility] [address] [facility] [place] [address] documented in this encounter Visit Diagnoses Diagnosis Vaginal bleeding in , first tri [place] gulf[place] Dizziness Dizziness and giddiness Triage Assessment Note - Isha Tamez, RN - 10/25/2019 9:32 AM ELECTRONIC COMPONENTS ASSEMBLER Starting Sunday night, spotting-amount is increasing, mild abd cramping, discharge, intermittent umsjjnobm-2-06 weeks TRONIC COMPONENTS ASSEMBLER documented in this encounter Care Teams Avionics Integration Engineer Relationship Specialty Start Date End Date Anny Daily, FILM NUMBERER, MARKETING INSTRUCTOR PCP - General Nurse Practitioner 03/20/[address] [place] [address] documented as of this encounter
--- OUTSIDE RECORDS SUMMARY | 2022-04-17 15:18 | XMS_ITS | Encounter Summary ---
:1980 Author Organization [facility] Address [address] [place] [address] Care Team Providers Name Role Phone KillianAnny APRN, CAROUSEL ATTENDANT Primary Care Provider [phone] Encounter Details Date Type Department Care Team Description 02/07/2021 [facility] Leo [phone] Social History Tobacco Use Types Packs/Day Years [...] encounter Progress Notes FAMILY MEDICINEELVIS PROVIDER - 02/07/2021 12:00 AM CDT [facility] Treatment Plan Diagnosis Mastitis Visit Date February 07, 2021 Lennie Grayey Date of : 78 Provider Li Romano, Nurse Practitioner Note From Provider Shamar Hogue,Thanks for using [facility]. See the attached treatment plan. Hope this helps, Alyse Treatment Plan Since you have a bacterial infection, let's use an antibiotic. I sent a prescriptionto [facility] . I've also listed a few of the best ways to help soothe yourdiscomfort and promote healing. If your symptoms don'timprove after 3 days, or if you have questions, please use theRequest a Call Back button and we'll discuss your next steps for free. Order(s) cephalexin 500 mg capsule Take 1 capsule oral four times a day as directed for 10 days Note: Refills: None Sent To: [facility] [address] [place], [place] [id number] Treatment Plan Self Care Tip Topics Pain Relief with Ibuprofen Continue and Pumping Warm Packs What to Expect If you follow the recommendations I made on the Treatment tab, yoursymptoms should begin to improve in 1 ??? 3 days. If your symptoms don???tstart to improve in 3 days or if you have any questions about your Treatment Plan pleaseclick the Request a Call Back button and we???ll call you back in about 30 minutes. What to Watch Out For Give us a call if you experience: ??? Redness spreading beyond the breast area ??? Worsening breast pain ??? Nipple drainage with pus or blood ??? High fevers ??? Shaking chills My Conditions, Orders, Allergies as of February 07, 2021 Standard condition list None Current orders cephalexin (cephalexin) Allergies None Casual Collective Information [email or web address] We are an online clinic open 26/03. If you have any questions or comments about this visit, please call or email [email or web address] documented in this encounter Plan of Treatment Not on filedocumented as of this encounter Visit Diagnoses Not on filedocumented in this encounter Care Teams Egg Trayer Relationship Specialty Start Date End Date Anny Daily, TAIL RIPPER, CAROUSEL ATTENDANT PCP - General Nurse Practitioner 03/20/18 [address] [place] [address] documented as of this encounter
--- OUTSIDE RECORDS SUMMARY | 2022-04-17 15:19 | XMS_ITS | Encounter Summary ---
:1980 Author Organization [facility] Address [address] [place] [address] Care Team Providers Name Role Phone St. MartinAnny APRN, DIRECTOR OF CASEWORK Primary Care Provider [phone] Encounter Details Date Type Department Care Team Description 04/28/2019 Lab Visit [facility] Neck discomfort [address] [place] [id number] Social History Tobacco Use Types Packs/Day Years Used Date Smoking Tobacco: Light Smoker Smokeless Tobacco: Never Comments: few a week [...] Name Priority Date/Time Associated Diagnosis Comme nts TSH, SENSITIVE Routine 04/28/2019 5:01 PM Neck discomfort Resu lts for this (WITH REFLEX) CDT procedure are in the results section. documented in this encounter Results TSH with Free T4 (if TSH Abnormal) (04/28/2019 5:01 PM CDT) P athologist Signature TSH, Reflex 2.89 0.30 - 4.50 04/28/2019 [facility] uIU/mL 10:28 PM CDT LABORATORY Specimen Anatomical Collection Method / Collection Time Recei mia Time (Source) Location / Volume Laterality Blood Venipuncture / 04/28/2019 5:01 04/28/2019 5:01 Unknown PM CDT PM CDT Narrative [facility] - 04/28/2019 10:28 PM CDT Lab will automatically reflex to Free T4 when TSH results are <0.30 uIU/mL or >4.50 mIU/mL. Derrick Rausch PA-C LAB_1 Performing Organization Address City/State/ZIP Code Phon e Number [facility] [address] [place] [address] documented in this encounter Visit Diagnoses Diagnosis Neck discomfort documented in this encounter Care Teams Machine Paint Mixer Relationship Specialty Start Date End Date Anny Daily, FORENSIC MATERIALS ENGINEER, DIRECTOR OF CASEWORK PCP - General Nurse Practitioner 03/20/18 [address] [address] [place] [id number] documented as of this encounter
--- OUTSIDE RECORDS SUMMARY | 2022-04-17 15:19 | XMS_ITS | Encounter Summary ---
:1980 Author Organization [facility] Address [address], [place] [address] Care Team Providers Name Role Phone Radha Armendariz MD Primary Care Provider Reason for Visit Reason Comments Routine Visit 32wks Encounter Details Date Type Department Care Team Description 10/26/2017 Routine [facility] Steph Barron Routine Services-BUREAU DIRECTOR R, POWER LINEWORKER, IMANI Visit (32wks) [address], [address] [address] [phone] (Wo rk) Social History Tobacco Use Types Packs/Day Years Used Date Smoking Tobacco: Former Smokeless Tobacco: Never Alcohol Use Standard Drinks/Week Comments No 0 (1 standard drink = 0.6 oz pure alcoho l) Sex Assigned at Date Recorded Not on file documented as of this encounter Last Filed Vital Signs Vital Sign Reading Time Taken Comments Blood Pressure 131/68 10/26/2017 2:47 PM PLANT MAINTENANCE MANAGER Pulse 80 10/26/2017 2:47 PM PLANT MAINTENANCE MANAGER Temperature - - Respiratory Rate - - Oxygen Saturation - - Inhaled Oxygen Concentration - - Weight 124.3 kg (274 lb) 10/26/2017 2:47 PM PLANT MAINTENANCE MANAGER Height - - Body Mass Index 40.46 05/28/2017 3:00 PM CDT documented in this encounter Progress Notes Steph Barron APRN, IMANI - 10/26/2017 2:45 PM CST Presents with and daughter. Lennie is doing well and denies questions or concerns. She has not noticed any vaginal bleeding, leaking of fluid, or contractions. Her baby is active. Fundal height greater than dates. Growth ultrasound scheduled. Reminded to complete hospital preregistration paperwork. They are planning on a hospital tour. 32 week book given and reviewed. Reminded of labor warning signs and movement monitoring. [place] feeding plan reviewed. Hopes to breastfeed. Return to clinic in 2 weeks. T MAINTENANCE MANAGER documented in this encounter Plan of Treatment Not on filedocumented as of this encounter Visit Diagnoses Diagnosis Elderly primigravida in third trimester - Primary documented in this encounter Care Teams Retail Visual Merchandiser Relationship Specialty Start Date End Date Radha Armendariz MD PCP - General 05/04/16 03/19/[address] [place] [id number] documented as of this encounter
--- OUTSIDE RECORDS SUMMARY | 2022-04-17 15:19 | XMS_ITS | Encounter Summary ---
:1980 Author Organization Formerly [facility], [facility] Address [address] [place] [address] Care Team Providers Name Role Phone Anny Daily APRN, CNP Primary Care Provider [phone] Encounter Details Date Type Department Care Team Description 09/19/2019 Partner ED Initial Department Provider, [facility] 09/09/2019 [address], [place], [place] [address] Interface [phone] [place] [address] Social History Tobacco Use Types Packs/Day Years [...] on filedocumented in this encounter Care Teams Plsql Developer Relationship Specialty Start Date End Date Anny Daily APRN, INSTRUCTIONAL TECHNOLOGY INSTRUCTOR PCP - General Nurse Practitioner 03/20/18 [address] [place] [address] documented as of this encounter
--- OUTSIDE RECORDS SUMMARY | 2022-04-17 15:19 | XMS_ITS | Encounter Summary ---
:1980 Author Organization [facility] Address [address] [place] [address] Care Team Providers Name Role Phone Killian, Anny Machuca APRN, LEARNING AND DEVELOPMENT DIRECTOR Primary Care Provider [phone] Reason for Visit Reason Comments DENTAL PAIN Encounter Details Date Type Department Care Team Description 03/11/2019 Telephone Ada Mendez Unassigned, Provider DENTAL PAIN Dentistry [address] [place] [address] [place] [address] [place], [place] [address] Social History Tobacco Use Types Packs/Day Years Used Date Smoking Tobacco: Former Smokeless Tobacco: Never Alcohol Use Standard Drinks/Week Comments No 0 (1 standard drink = 0.6 oz pure alcoho l) Sex Assigned at Date Recorded Not on file documented as of this encounter Nursing Notes Yamileth Singh - 03/11/2019 9:40 AM CDT EMERGENCY/PROBLEM FOCUS PRIOR VISIT QUESTIONNAIRE 1. Have you ever been seen in our office before? [x] No [] Yes Last Seen: [] Less than 5 years [] 5 years or more Comments: 2. What is causing your problem? [] Accident [x] Lost Presybeterian [] Broken Tooth [] Chipped Tooth [] Toothache Location: [] Upper Left [] Lower Left [] Upper Front [] Lower Front [x] Upper Right [] Lower Right Comments: There is a crown on it. Off and on pain. Bleeds sometimes and tissue growing down through the canal. Can't really clean it or touch it without it bleeding. Not sensitive to hot or cold. Bleeds when she brushes. The crown was put in almost 2 years ago and the then it broke off about 4 months after she got it. She has a new born and didn't want to deal with it. 3. What kind of discomfort are you in? [] No Discomfort [] Awake Last Night [] Radiating Pain [] Throbbing Pain Comments: 4. When does the discomfort occur? [] Cold Sensitive [] Constantly [] Pressure Sensitive [] Hot Sensitive [] Occasionally [] Other (fill in comments) Comments: 5. How long has the degree of discomfort lasted? [] Longer Duration [] Other (enter duration in comments) Comments: Are you experiencing any other signs or symptoms? [] Bleeding/Oozing [] Fever [] Other (list other signs/symptoms in comments) Comments: Are you taking medications for this problem? [] No [] Yes (list meds in comments) Comments: 6. Have you been advised to take antibiotics prior to dental treatment? [] No [] Yes Comments: documented in this encounter Plan of Treatment Not on filedocumented as of this encounter Visit Diagnoses Not on filedocumented in this encounter Care Teams Oracle Application Consultant Relationship Specialty Start Date End Date Anny Daily, SPEECH LANGUAGE PATHOLOGIST TRAVEL, LEARNING AND DEVELOPMENT DIRECTOR PCP - General Nurse Practitioner 03/20/18 [address] [place] [address] documented as of this encounter
--- OUTSIDE RECORDS SUMMARY | 2022-04-17 15:19 | XMS_ITS | Encounter Summary ---
:1980 Author Organization [facility] Address [address] [place] [address] Care Team Providers Name Role Phone Radha Armendariz MD Primary Care Provider Reason for Visit Reason Comments Concerns Encounter Details Date Type Department Care Team Description 12/16/2017 Nurse Triage [facility] Radha Armendariz, Concerns [address] [address] [place] [address] (Wo rk) Social History Tobacco Use Types Packs/Day Years Used Date Smoking Tobacco: Former Smokeless Tobacco: Never Alcohol Use Standard Drinks/Week Comments No 0 (1 standard drink = 0.6 oz pure alcoho l) Sex Assigned at Date Recorded Not on file documented as of this encounter Nursing Notes Steph Bob, RN - 12/16/2017 6:08 PM CDT Reason for Disposition ??? Mild abdominal pain Protocols used: - ABDOMINAL PAIN GREATER THAN 20 WEEKS [id number] Caller states new onset of mild on and off dull ache in low abdomen about every 10 mins for 2 hours.No vagina discharge, Baby moving. Does not feel like contractions per past experience. New onset 2 hours ago of nausea. Unable to rate pain because it is described as dull ache rather than pain. Planning to deliver at [facility]. [id number] . Advised to call back directly if there are further questions, or if these symptoms fail to improve as anticipated or worsen. Problem list reviewed. documented in this encounter Plan of Treatment Not on filedocumented as of this encounter Visit Diagnoses Not on filedocumented in this encounter Care Teams Dam Worker Relationship Specialty Start Date End Date Radha Armendariz MD PCP - General 05/04/16 03/19/[address] [place] [address] documented as of this encounter
--- OUTSIDE RECORDS SUMMARY | 2022-04-17 15:19 | XMS_ITS | Encounter Summary ---
:1980 Author Organization [facility] Address [address] [place] [address] Care Team Providers Name Role Phone Anny Daily APRN, CNP Primary Care Provider [phone] Reason for Visit Reason Comments No Show Encounter Details Date Type Department Care Team Description 08/02/2018 Telephone Joie Evans, VANDANA No Show Dentistry [address] [place] [address] [place] [address] Social History Tobacco Use [...] on filedocumented in this encounter Care Teams Area Counselor Relationship Specialty Start Date End Date Anny Daily APRN, MARKET RISK SPECIALIST PCP - General Nurse Practitioner 03/20/18 [address] [place] [address] documented as of this encounter
--- OUTSIDE RECORDS SUMMARY | 2022-04-17 15:19 | XMS_ITS | Encounter Summary ---
:1980 Author Organization [facility] Address [address] [place] [address] Care Team Providers Name Role Phone Crys Dailyrenee Machuca APRN, PROFESSOR OF PSYCHOLOGY Primary Care Provider [phone] Reason for Referral Therapies (Routine) - Closed Specialty Diagnoses / Procedures Referred By Contact Refer red To Contact Diagnoses Neck pain Karolina Mauricio MD [address] [place] [address] Referral ID Status Reason Start Date Expiration Date Visits Requ ested Visits Authorized [id number] Closed 07/04/2018 09/02/2018 1 1 Scheduling Instructions Your provider has recommended an appoint ment with [facility]. You may call [phone] to schedule your appoi ntment. If you do not schedule an appointment within the next 1 to 3 business days, we will call you to help arrange your appointment. We suggest you call your [email or web address] insurance company about your coverage and benefits for this appointment. Procedure/Equipment (Routine) - Incomplete Specialty Diagnoses / Procedures Referred By Contact Refer red To Contact Diagnoses Neck pain Karolina Mauricio MD Procedures XR Cervical Spine 2 Views [address] [facility] AM[place] [address] Referral ID Status Reason Start Date Expiration Date Visits V isits Requested Authorized [id number] Incomplete 07/04/2018 10/03/2019 1 1 Reason for Visit Reason Comments SHOULDER PAIN left, started 07/03/2018 Encounter Details Date Type Department Care Team Description 07/04/2018 Office Visit [facility] Orthopedic Karolina Mauricio in (Primary Dx); Urgent Care MD Shivani Cervical radiculopathy [address] [facility] [address] [facility] [address] [place] [address] [phone] (Wo rk) Social History Tobacco Use Types Packs/Day Years Used Date Smoking Tobacco: Former Smokeless Tobacco: Never Alcohol Use Standard Drinks/Week Comments No 0 (1 standard drink = 0.6 oz pure alcoho l) Sex Assigned at Date Recorded Not on file documented as of this encounter Last Filed Vital Signs Vital Sign Reading Time Taken Comments Blood Pressure - - Pulse - - Temperature 36.9 ??C (98.4 ??F) 07/04/2018 10:33 AM CDT Respiratory Rate - - Oxygen Saturation - - Inhaled Oxygen Concentration - - Weight 131.5 kg (290 lb) 07/04/2018 10:33 AM CDT Height 177.8 cm (5' 10) 07/04/2018 10:33 AM CDT Body Mass Index 41.61 07/04/2018 10:33 AM CDT documented in this encounter Patient Instructions Patient InstructionsDeAna marks, ATC - 07/04/2018 10:[address] Karolina Mauricio MD Sports & Orthopaedic Medicine [facility] Medication Requests: Prescriptions are not filled on Weekends or on Weekdays after 3:00PM For all medication refills: Request a refill using MyChart or contact your Pharmacy [facility] Nurse Line: Please contact [facility] Nurse line for all medical requests and questions at [phone] MRI Scheduling: To schedule an MRI at [facility] please call [phone] Paperwork Requests: Questions regarding FMLA or disability paperwork please call [phone] Phone lines are answered 8AM to 5PM Sunday - Sunday Workers??? Compensation: Please contact our department for any Work Comp concerns at Email: [email or web address] Cervical Radiculopathy See physical therapy supervisory aide prescription Follow up as needed documented in this encounter Progress Notes Karolina Mauricio MD - 07/04/2018 12:00 PM CDT NAME: LENNIE RODNEY MR#: [id number] CSN: [id number] AUTHENTICATING CLINICIAN: Karolina Mauricio MD CONFIRM #: [id number] LOC: 711 CLINIC PROGRESS NOTE DATE OF VISIT: 07/04/2018 : 1980 CHIEF COMPLAINT: Left shoulder and shoulder blade pain. This is a 38-year-old female who is a mother of 2 young children. She had slept very hard on the previous evening and then yesterday, Halloween, she woke up with discomfort underneath her left shoulderblade. Ache and burning feeling into her posterior occiput neck region and a feeling of achiness radiating to her middle and ring fingers and some numbness and tingling in those fingers as well. It hasbeen present for the last 24 hours. She was able to sleep last night. No previous injury to the areathat she can recall. REVIEW OF SYSTEMS: No fevers, chills, rash, skin changes. She does have tingling in the left ring and middle fingers. 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 She is the smallest. PAST MEDICAL HISTORY: Gastric bypass, SI joint fusion, alcoholism. PHYSICAL EXAM: Temperature 98.4, height 5 feet 10, weight 290. Pleasant female, alert, oriented, no acute distress.She is tender to palpation in the rhomboids. She is tender in the supraspinatus. Her neck range of motion is full. She has mild achiness in the left shoulder with Spurling testing. Sensation in the extremity feels hypersensitive to her in her left small, ring, and middle fingers more so than index andthumb. Her myotome testing is normal. Her left shoulder has full range of motion. She has pain with empty can testing, pulling on the neck, not in the shoulder itself. No focal tenderness through the shoulder. IMAGING STUDIES: Cervical spine radiograph showing there to be some mild degenerative changes at the cervicothoracic junction. ASSESSMENT: Left-sided cervical radiculopathy. PLAN: We discussed beginning with acute therapy to help mobilize the cervical spine, a home exercise program. We discussed the pros and cons of prednisone as they relate to nursing and will have her returning if she is not having symptom resolution over the next week to 2 weeks. HDT:MEDQ C: R:07/04/18 13:13 CONFIRM#:[id number] TRAINER TEACHER documented in this encounter Plan of Treatment Scheduled Referrals Name Type Priority Associated Diagnoses [facility] Referral Routine Neck pain Ordered: documented as of this encounter Results XR Cervical Spine 2 Views (07/04/2018 11:18 AM CDT) Anatomical Region Laterality Modality Spine, C-Spine, Neck Digital Radiography Specimen (Source) Anatomical Collection Method Collection Time Re ceived Time Location / / Volume Laterality 07/04/2018 11:11 AM CDT Narrative 07/04/2018 11:35 AM CDT COMPARISON: ??None. FINDINGS: ??2 views obtained of the cerv ical spine. No fracture or subluxation. No prevertebral soft tissue swelling. Minimal multilevel uncinate arthropathy, most pronounced at C4-5 and C5-6. Mild facet arthropathy at C5-6 on the left. Procedure Note Joel Marcano MD - 07/04/2018Formattin g of this note might be different from the original. COMPARISON: None. FINDINGS: 2 views obtained of the cervic al spine. No fracture or subluxation. No prevertebral soft tissue swelling. Minimal multilevel uncinate arthropathy, most pronounced at C4-5 and C5-6. Mild facet arthropathy at C5-6 on the left. Karolina Mauricio MD RAD GD documented in this encounter Visit Diagnoses Diagnosis Neck pain - Primary Cervicalgia Cervical radiculopathy Brachial neuritis or radiculitis nos Neck pain Cervicalgia documented in this encounter Care Teams Senior Writer Relationship Specialty Start Date End Date Anny Daily, PRIVATE DUTY NURSE, PROFESSOR OF PSYCHOLOGY PCP - General Nurse Practitioner 03/20/18 [address] [place] AM[place] [id number] documented as of this encounter
--- OUTSIDE RECORDS SUMMARY | 2022-04-17 15:19 | XMS_ITS | Encounter Summary ---
:1980 Author Organization [facility] Address [address] [place] [address] Care Team Providers Name Role Phone Radha Armendariz MD Primary Care Provider Encounter Details Date Type Department Care Team Description 10/12/2017 Lab Visit [facility] Previous gastric bypass affe cting , antepartum; [address] [employer] Screening examination [place] [address] Social History Tobacco Use Types Packs/Day Years Used Date Smoking Tobacco: Former Smokeless Tobacco: Never Alcohol Use Standard Drinks/Week Comments No 0 (1 standard drink = 0.6 oz pure alcoho l) Sex Assigned at Date Recorded Not on file documented as of this encounter Plan of Treatment Not on filedocumented as of this encounter Procedures Procedure Name Priority Date/Time Associated Diagnosis Comme nts TREPONEMA SCREEN Routine 10/12/2017 8:44 AM Screening Resul ts for this BUYER AGENT examination for procedure ar e in venereal disease the results section. HOMOCYSTEINE Routine 10/12/2017 8:44 AM Previous gastric Resul ts for this BUYER AGENT bypass affecting procedure a re in , the results antepartum section. IRON (NO IBC OR SAT) Routine 10/12/2017 8:44 AM Previous gastr ic Results for this BUYER AGENT bypass affecting procedure a re in , the results antepartum section. COMPLETE BLOOD Routine 10/12/2017 8:44 AM Previous gastric Res ults for this COUNT-NO DIFF BUYER AGENT bypass affecting procedure are in , the results antepartum section. HGB A1C Routine 10/12/2017 8:44 AM Previous gastric Resul ts for this BUYER AGENT bypass affecting procedure a re in , the results antepartum section. FOLATE ONLY (4HR FAST Routine 10/12/2017 8:44 AM Previous addi divine Results for this RECOMMENDED) BUYER AGENT bypass affecting procedure a re in , the results antepartum section. GLUCOSE - FASTING > 8 Routine 10/12/2017 8:44 AM Previous addi divine Results for this HRS FASTING BUYER AGENT bypass affecting procedure a re in , the results antepartum section. CALCIUM Routine 10/12/2017 8:44 AM Previous gastric Resul ts for this BUYER AGENT bypass affecting procedure a re in , the results antepartum section. documented in this encounter Results Treponema Screen (10/12/2017 8:44 AM BUYER AGENT) [facility] Appercode Method Time Signature Treponema Non Reactive Non Reactive PN SOFT Screen Specimen Anatomical Collection Method Collection Time Receive d Time (Source) Location / / Volume Laterality 10/12/2017 8:44 AM 8 BUYER AGENT 12:52 PM BUYER AGENT Narrative PN SOFT - 10/12/2017 2:01 PM BUYER [place] [address] CLIA number [id number] Henrik Washington MD LAB_1 Performing Organization Address [facility] Phon e Number PN SOFT [address] [place] [address] (ABNORMAL) Homocysteine (10/12/2017 8:44 AM BUYER AGENT) [facility] Appercode Method Time Signature Homocysteine 3.8 (L) 5.0 - 15.4 PN SOFT Plasma umol/L Specimen Anatomical Collection Method Collection Time Receive d Time (Source) Location / / Volume Laterality 10/12/2017 8:44 AM 8 1:02 BUYER AGENT PM BUYER AGENT Narrative PN SOFT - 10/12/2017 3:08 PM BUYER AGENT Performed at [place] [id number] CLIA number [id number] Henrik Washington MD LAB_1 Performing Organization Address [facility] Phon e Number PN SOFT [address] [place] [address] Serum Folate (10/12/2017 8:44 AM BUYER AGENT) athologist Signature Serum Folate 16.0 7.0 - PN SOFT 9,999.9 ng/mL Specimen Anatomical Collection Method Collection Time Receive d Time (Source) Location / / Volume Laterality 10/12/2017 8:44 AM 8 BUYER AGENT 12:52 PM BUYER AGENT Narrative PN SOFT - 10/12/2017 2:01 PM BUYER AGENT Performed at [place] [address] CLIA number [id number] Henrik Washington MD LAB_1 Performing Organization Address [facility] Phon e Number PN SOFT [address] [place] [address] (ABNORMAL) Iron [IRON] (no IBC or SAT) (10/12/2017 8:44 AM BUYER AGENT) athologist Signature Iron, Serum 31 (L) 50 - 170 PN SOFT ug/dL Specimen Anatomical Collection Method Collection Time Receive d Time (Source) Location / / Volume Laterality 10/12/2017 8:44 AM 8 1:18 BUYER AGENT PM BUYER AGENT Narrative PN SOFT - 10/12/2017 2:55 PM BUYER AGENT Performed at [address] [address] CLIA number [id number] Henrik Washington MD LAB_1 Performing Organization Address [facility] Phon e Number PN SOFT [address] [place] [address] Hemoglobin A1C [A1C] (10/12/2017 8:44 AM BUYER AGENT) athologist Signature HGB A1C 5.0 4.0 - 5.6 % PN SOFT Specimen Anatomical Collection Method Collection Time Receive d Time (Source) Location / / Volume Laterality 10/12/2017 8:44 AM 8 1:00 BUYER AGENT PM BUYER AGENT Narrative PN SOFT - 10/12/2017 3:11 PM BUYER AGENT Performed at [address] [address] CLIA number [id number] Henrik Washington MD LAB_1 Performing Organization Address [facility] [[email or web address]] Code Phon e Number PN SOFT [address] [place] [address] Glucose (GLUC) (10/12/2017 8:44 AM BUYER AGENT) athologist Signature Lab Glucose 90 70 - 100 PN SOFT mg/dL Comment: The stated glucose range is for the fast ing state. Non-fasting glucose range is 70-180 mg/d L Specimen Anatomical Collection Method Collection Time Receive d Time (Source) Location / / Volume Laterality 10/12/2017 8:44 AM 8 8:44 BUYER AGENT AM BUYER AGENT Narrative PN SOFT - 10/12/2017 9:13 AM BUYER AGENT Performed at [facility], [address] [place] [address] CLIA number [id number] Henrik Washington MD LAB_1 Performing Organization Address [facility] Phon e Number PN SOFT [address] [place] [address] Calcium [CA] (10/12/2017 8:44 AM BUYER AGENT) athologist Signature Calcium 9.1 8.4 - 10.2 PN SOFT mg/dL Specimen Anatomical Collection Method Collection Time Receive d Time (Source) Location / / Volume Laterality 10/12/2017 8:44 AM 8 8:44 BUYER AGENT AM BUYER AGENT Narrative PN SOFT - 10/12/2017 9:13 AM BUYER AGENT Performed at [facility], [address] [place], [place] [address] CLIA number [id number] Henrik Washington MD LAB_1 Performing Organization Address [facility] Phon e Number PN SOFT [address] [place] [address] (ABNORMAL) CBC - Complete Blood Count - No Diff [ABC] (10/12/2017 8:44 AM BUYER AGENT) [facility] gist Method Time Signature White Blood Cell 13.0 (H) 3.8 - 11.0 PN SOFT Count k/cmm Red Blood Cell 3.67 (L) 3.70 - PN SOFT Count 5.20 m/cmm Hemoglobin 10.3 (L) 11.8 - PN SOFT 15.5 g/dL Hematocrit 31.6 (L) 35.0 - PN SOFT 46.0 % Mean Corpuscular 86.1 80.0 - PN SOFT Volume 100.0 fL RDW 12.9 11.0 - PN SOFT 15.0 % Platelet Count 269 140 - 450 PN SOFT k/cmm Specimen Anatomical Collection Method Collection Time Receive d Time (Source) Location / / Volume Laterality 10/12/2017 8:44 AM 8 8:44 BUYER AGENT AM BUYER AGENT Narrative PN SOFT - 10/12/2017 8:52 AM BUYER AGENT Performed at [facility], [address] [place] [address] CLIA number [id number] Henrik Washington MD LAB_1 Performing Organization Address City/State/ZIP Code Phon e Number PN SOFT [address] [place] [address] [phone] documented in this encounter Visit Diagnoses Diagnosis Previous gastric bypass affecting pregna ncy, antepartum Screening examination for venereal disea se documented in this encounter Care Teams Air Drier Machine Operator Relationship Specialty Start Date End Date Radha Armendariz MD PCP - General 05/04/16 03/19/[address] [place] [id number] documented as of this encounter
--- OUTSIDE RECORDS SUMMARY | 2022-04-17 15:19 | XMS_ITS | Encounter Summary ---
:1980 Author Organization [facility] Address [address] [place] [address] Care Team Providers Name Role Phone Radha Armendariz MD Primary Care Provider Reason for Visit Reason Comments Concerns Encounter Details Date Type Department Care Team Description 12/18/2017 Telephone [facility] Radha Armendariz MD Concerns [address] [place] [address] [place], [place] [phone] [address] (Wo rk) Social History Tobacco Use Types Packs/Day Years Used Date Smoking Tobacco: Former Smokeless Tobacco: Never Alcohol Use Standard Drinks/Week Comments No 0 (1 standard drink = 0.6 oz pure alcoho l) Sex Assigned at Date Recorded Not on file documented as of this encounter Nursing Notes Lottie Masters RN - 12/18/2017 5:08 PM CDT Medications with Triage Reference SYMPTOMS: Patient calling diagnosed with yeast infection today and advised to take Monistat 7. Questioning if she should do the 3 day as she is due on ? PNNl advised to do the 7 days as recommended. Denies other questions or concerns at this time. Vaginal Medications: For treatment of yeast: ---Do not use Diflucan in 1st trimester of . (Single dose OK per provider). ---Do NOT use Terazol in the first trimester of . OK to use any OTC anti-fungal medication during all three trimesters, --- e.g. Monostat, Mycostatin, Mycelex, Gynelotrimin. Insert the applicator only 1/[address] into the vagina. Advised to call back if any of the following occur: symptoms worsen, any other questions or concerns. Patient/Caller agrees with plan and denies additional questions. Problem List: Reviewed today in the EMR. documented in this encounter Plan of Treatment Not on filedocumented as of this encounter Visit Diagnoses Not on filedocumented in this encounter Care Teams Child Development Professor Relationship Specialty Start Date End Date Radha Armendariz MD PCP - General 05/04/16 03/19/18 [address] [facility] [facility] [place] [address] documented as of this encounter
--- OUTSIDE RECORDS SUMMARY | 2022-04-17 15:19 | XMS_ITS | Encounter Summary ---
:1980 Author Organization [facility] Address [address] [place] [address] Care Team Providers Name Role Phone Anny Daily APRN, IMANI Primary Care Provider [phone] Reason for Visit Procedure/Equipment (Routine) - Incomplete Specialty Diagnoses / Procedures Referred By Contact Refer red To Contact Diagnoses Pain of left lower extremity Moy Mcwilliams MD Procedures US VENOUS LEFT LOWER EXTREM DOPPLER [address] [place] [address] Referral ID Status Reason Start Date Expiration Date Visits V isits Requested Authorized [id number] Incomplete 12/30/2018 03/30/2020 1 1 Encounter Details Date Type Department Care Team Description 12/30/2018 Ancillary Procedure Isabella Ultrasoun d Pain of left lower [address] [facility] [place], [place] [id number] Social History Tobacco Use Types Packs/Day Years [...] Priority Date/Time Associated Diagnosis Comme nts US LOWER EXTREMITY Routine 12/30/2018 3:24 PM Pain of left low er Results for this LT VENOUS DOPPLER CDT extremity procedure are in the results section. documented in this encounter Results US VENOUS LEFT LOWER EXTREM DOPPLER (12/30/2018 3:24 PM CDT) Anatomical Region Laterality Modality Vascular, Leg Ultrasound Specimen (Source) Anatomical Collection Method Collection Time Re ceived Time Location / / Volume Laterality 12/30/2018 2:55 PM CDT Impressions 12/30/2018 3:32 PM CDT IMPRESSION: 1. No evidence of deep venous thrombosi s. Small calf vein thrombosis cannot be completely excluded by this technique. Narrative 12/30/2018 3:32 PM CDT COMPARISON: ??None. CLINICAL HISTORY: ??calf pain FINDINGS: The venous system of the left lower extremity was visualized using color-flow Doppler technique. ??The common femoral, proximal deep femoral, femoral, popliteal, and visualized portions of the posterior tibial and peroneal veins alexandre w normal compressibility, color flow, and response to augmentation. The greater saphenous vein has normal compression. Procedure Note Allen Lawton MD - 12/30/2018 COMPARISON: None. CLINICAL HISTORY: calf pain FINDINGS: The venous system of the left lower extremity was visualized using color-flow Doppler technique. The common femoral, proximal deep femoral, femoral, popliteal, and visualized portions of the posterior tibial and peroneal veins show normal co mpressibility, color flow, and response to augmentation. The greater saphenous vein has normal compression. IMPRESSION IMPRESSION: 1. No evidence of deep venous thrombosi s. Small calf vein thrombosis cannot be completely excluded by this technique. Moy Mcwilliams MD [facility] documented in this encounter Visit Diagnoses Diagnosis Pain of left lower extremity documented in this encounter Care Teams Public Aid Eligibility Assistant Relationship Specialty Start Date End Date Anny Daily, MIXING TUMBLER OPERATOR, EMERGENCY MEDICAL TECHNICIAN PCP - General Nurse Practitioner 03/20/18 [address] [address] [place] [id number] documented as of this encounter
--- OUTSIDE RECORDS SUMMARY | 2022-04-17 15:19 | XMS_ITS | Encounter Summary ---
:1980 Author Organization [facility] Address [address] [place] [address] Care Team Providers Name Role Phone Radha Armendariz MD Primary Care Provider Encounter Details Date Type Department Care Team Description 10/12/2017 Lab Visit [facility] Previous gastric bypass [address] [address] [facility] complicating , [place] [address] antepartum [phone] Social History Tobacco Use Types Packs/Day Years Used Date Smoking Tobacco: Former Smokeless Tobacco: Never Alcohol Use Standard Drinks/Week Comments No 0 (1 standard drink = 0.6 oz pure alcoho l) Sex Assigned at Date Recorded Not on file documented as of this encounter Plan of Treatment Not on filedocumented as of this encounter Procedures Procedure Name Priority Date/Time Associated Diagnosis Comme nts GLUCOSE - FASTING > Routine 10/12/2017 10:51 Previous gastric Results for this 8 HRS FASTING AM CLINICAL SERVICES DIRECTOR bypass complicating procedu re are in , antepartum the re sults section. documented in this encounter Results Glucose (10/12/2017 10:51 AM CLINICAL SERVICES DIRECTOR) P athologist Signature Lab Glucose 92 70 - 100 PN SOFT mg/dL Comment: The stated glucose range is for the fast ing state. Non-fasting glucose range is 70-180 mg/d L Specimen Anatomical Collection Method Collection Time Receive d Time (Source) Location / / Volume Laterality 10/12/2017 10:51 10/12/2017 AM CLINICAL SERVICES DIRECTOR 10:51 AM CLINICAL SERVICES DIRECTOR Narrative PN SOFT - 10/12/2017 11:07 AM CLINICAL SERVICES DIRECTOR Performed at [facility], [address] [facility], [place] [address] CLIA number [id number] Nathan Conteh MD LAB_1 Performing Organization Address City/State/ZIP Code Phon e Number PN SOFT [address] [place] [address] [phone] documented in this encounter Visit Diagnoses Diagnosis Previous gastric bypass complicating pre gnancy, antepartum Bariatric surgery status complicating pr egnancy, childbirth, or the puerperium, antepartum condition or complication documented in this encounter Care Teams Shoeshiner Relationship Specialty Start Date End Date Radha Armendariz MD PCP - General 05/04/16 03/19/[address] [place] [id number] documented as of this encounter
--- OUTSIDE RECORDS SUMMARY | 2022-04-17 15:19 | XMS_ITS | Encounter Summary ---
:1980 [facility] Address [address] [place] [address] Care Team Providers Name Role Phone KillianAnny APRN, IMANI Primary Care Provider [phone] Reason for Visit Reason Comments Abdominal Pain Encounter Details Date Type Department Care Team Description 10/14/2019 Hospital Encounter [place] [facility] Zofia Salazar V aginal bleeding; Dimas Hannah MD Abdominal pain, unspecified abdominal lo cation [address] [address] [facility] [phone] [place] [address] Social History Tobacco Use Types Packs/Day Years [...] Sign Reading Time Taken Comments Blood Pressure 141/81 10/14/2019 4:42 PM FIELD PIPELINES SUPERVISOR Pulse 81 10/14/2019 4:42 PM FIELD PIPELINES SUPERVISOR Temperature 36.9 ??C (98.4 ??F) 10/14/2019 4:42 PM FIELD PIPELINES SUPERVISOR Respiratory Rate 20 10/14/2019 4:42 PM FIELD PIPELINES SUPERVISOR Oxygen Saturation 98% 10/14/2019 4:42 PM FIELD PIPELINES SUPERVISOR Inhaled Oxygen Concentration - - Weight - - Height - - Body Mass Index - - documented in this encounter Discharge Instructions Discharge InstructionsZofia Salazar MD - 10/14/2019 5:42 PM CST Follow up In ER if worse. Call OB in am. D PIPELINES SUPERVISOR documented in this encounter Medications at Time of Discharge Medication Sig Dispensed Refills Start Date End Date B Complex Vitamins (B 0 COMPLEX-B12 TR OR) Qgyjgwi-Gqzmlavkj-Etckwph 0 D (CALCIUM MAGNESIUM OR) Iron, Ferrous Gluconate, 1 Tab. 0 256 (28 FE) MG TABS 27-0.8 MG tablet Take 1 Tab by mouth. 0 Vitamin D, 800 Units. 0 Cholecalciferol, 400 units CAPS potassium chloride SA Take 10 mEq by mouth 0 10/13/2020 (KLOR-CON) 10 MEQ two times a day. controlled release tablet documented as of this encounter ED Notes Zofia Salazar MD - 10/14/2019 12:00 PM CST NAME: LENNIE RODNEY MR#: [id number] CSN: [id number] AUTHENTICATING CLINICIAN: Zofia Salazar MD CONFIRM #: [id number] LOC: 520 URGENT CARE PROGRESS NOTE DATE OF VISIT: 10/14/2019 : 1980 CHIEF COMPLAINT: Abdominal pain with check. HPI: Lennie is a 39-year-old lady coming with complaint of abdominal pain and cramping felt in the right lower quadrant and suprapubic area this afternoon. It is rated at 5, but it is now down to 2 or less. About midday she had 1 episode of spotting when she wiped after urinating. She felt that was vaginal,and she has felt a little bit concerned. She has done a urine at home. She is about 8 weeks . Had a followup appointment with OB. She went through with 2 previous pregnancies resulting in 2 healthy newborns. The first was accompanied by spotting throughout the whole 9 months. Multiple ultrasounds were done for followup, but she had nothing abnormal and delivered without a p roblem. She denies any urinary symptoms. No specific flank pain. No chest symptoms. No fever. No dysuria. No trauma, but she does carry the kids around when needed. SURGICAL HISTORY: Appendectomy and cholecystectomy. OBJECTIVE: VITAL SIGNS: Temperature 98.4, O2 sat 98, pulse 81, blood pressure 141/81. GENERAL APPEARANCE: Alert, no apparent distress. LUNGS: Clear. CARDIAC: Regular, rhythmic. No murmur. Flanks nontender. ABDOMEN: Reveals tenderness which is around the suprapubic area. Does not lateralize on this exam. Rest of abdominal exam did not any tenderness, masses, organomegaly, rigidity, or guarding. PELVIC: Deferred. UA and urine test were ordered interpreted by me as positive UPT and negative UA. ASSESSMENT: 1. Abdominal pain. 2. First trimester . PLAN: I discussed with her doing the OB ultrasound, and ultrasound was available to do it. Recommended less than 14 week OB ultrasound with endopatch. I discussed that with the patient. She felt that the pain is almost gone now. Discussed possibility of ectopic, et cetera, but she felt she would rather go home and observe knowing that there is not much we can do for an early miscarriage. She understands about torsion of the ovary, about ectopic and should this get worse, she will go to emergencyroom or come back here. Tomorrow she will call her OB. TAMMYD:MEDJose Armando C: CONFIRM #: [id number] D PIPELINES SUPERVISOR documented in this encounter Plan of Treatment Not on filedocumented as of this encounter Procedures Procedure Name Priority Date/Time Associated Diagnosis Comme nts UA WITH MICROSCOPIC STAT 10/14/2019 5:20 PM Abdominal pain, Results for this FIELD PIPELINES SUPERVISOR unspecified procedure are i n abdominal location the resul ts section. TEST STAT 10/14/2019 5:20 PM Abdominal pain, Resu lts for this (URINE) FIELD PIPELINES SUPERVISOR unspecified procedure are i n abdominal location the resul ts section. documented in this encounter Results (ABNORMAL) Test Screen Urine (UPREG) (10/14/2019 5:20 PM FIELD PIPELINES SUPERVISOR) [facility] Method Time Signature HCG, Urine Positive (A) Negative 10/14/2019 [facility] 5:34 PM FIELD PIPELINES SUPERVISOR LABORATORY Specimen Anatomical Collection Method Collection Time Receive d Time (Source) Location / / Volume Laterality Urine URINE SPECIMEN Non-blood 10/14/2019 5:20 PM 020 5:28 COLLECTION, CLEAN Collection / FIELD PIPELINES SUPERVISOR PM FIELD PIPELINES SUPERVISOR CATCH / Unknown Unknown Zofia Salazar MD LAB_1 Performing Organization Address City/State/ZIP Code Phon e Number [facility] [address] [place] [address] (ABNORMAL) UA with Microscopic (10/14/2019 5:20 PM FIELD PIPELINES SUPERVISOR) [facility] Method Time Signature Urine Color Straw Straw-Yellow 10/14/2019 [facility] 5:36 PM FIELD PIPELINES SUPERVISOR LABORATORY Urine Clarity Clear Clear 10/14/2019 [facility] 5:36 PM FIELD PIPELINES SUPERVISOR LABORATORY Specific 1.010 1.005 - 10/14/2019 [facility] [place], Urine 1.030 5:36 PM FIELD PIPELINES SUPERVISOR LABORATORY PH Urine 7.0 5.0 - 8.0 10/14/2019 [facility] 5:36 PM FIELD PIPELINES SUPERVISOR LABORATORY Protein, Urine Negative Neg/Trace 10/14/2019 [facility] Qual (mg/dL) 5:36 PM FIELD PIPELINES SUPERVISOR LABORATORY Glucose Urine Negative Negative 10/14/2019 [facility] Qual (mg/dL) 5:36 PM FIELD PIPELINES SUPERVISOR LABORATORY Ketones, Urine Negative Negative 10/14/2019 [facility] (mg/dL) 5:36 PM FIELD PIPELINES SUPERVISOR LABORATORY Urobilinogen, 0.2 <2.0 10/14/2019 [facility] Urine (EU/dL) 5:36 PM FIELD PIPELINES SUPERVISOR LABORATORY Bilirubin Negative Negative 10/14/2019 [facility] Urine 5:36 PM FIELD PIPELINES SUPERVISOR LABORATORY Blood, Urine Small (A) Neg/Trace 10/14/2019 [facility] 5:36 PM FIELD PIPELINES SUPERVISOR LAB[facility]ORY Nitrite Urine Negative Negative 10/14/2019 [facility] 5:36 PM FIELD PIPELINES SUPERVISOR [facility]ORY Leukocyte Est. Negative Negative 10/14/2019 [facility] 5:36 PM FIELD PIPELINES SUPERVISOR LABORATORY Red Blood 4-7 (A) 0 - 3 /HPF 10/14/2019 [facility] Cells 5:36 PM FIELD PIPELINES SUPERVISOR LABORATORY White Blood 0-5 0 - 5 /HPF 10/14/2019 [facility] Cells 5:36 PM FIELD PIPELINES SUPERVISOR LABORATORY Squamous Few (A) None Seen 10/14/2019 [facility] Epithelial /HPF 5:36 PM FIELD PIPELINES SUPERVISOR LABORATORY Cells Urine Source Clean Catch 10/14/2019 [facility] 5:36 PM FIELD PIPELINES SUPERVISOR LABORATORY Specimen Anatomical Collection Method Collection Time Receive d Time (Source) Location / / Volume Laterality Urine URINE SPECIMEN Non-blood 10/14/2019 5:20 PM 020 5:28 COLLECTION, CLEAN Collection / FIELD PIPELINES SUPERVISOR PM FIELD PIPELINES SUPERVISOR CATCH / Unknown Unknown Zofia Salazar MD LAB_1 Performing Organization Address City/State/ZIP Code Phon e Number [facility] [address] [facility] [place], [place] [phone] documented in this encounter Visit Diagnoses Diagnosis Vaginal bleeding Other specified noninflammatory disorder of vagina Abdominal pain, unspecified abdominal lo cation Triage Assessment Note - Francine Glover, RN - 10/14/2019 4:39 PM CST C/o RLQ abd pain starting today. Pain increasing last 2 hrs. Pt is 8 weeks pg. Has spotting at 1300 today. First OB appt is in 2 weeks. D PIPELINES SUPERVISOR documented in this encounter Care Teams Rn Tele Relationship Specialty Start Date End Date Anny Daily, SUPERVISOR YARD, DATA ABSTRACTOR PCP - General Nurse Practitioner 03/20/18 [address] [place] [id number] documented as of this encounter
--- OUTSIDE RECORDS SUMMARY | 2022-04-17 15:19 | XMS_ITS | Encounter Summary ---
:1980 Author Organization [facility] Address [address], [place] [address] Care Team Providers Name Role Phone Radha Armendariz MD Primary Care Provider Reason for Visit Reason Comments Routine Visit Encounter Details Date Type Department Care Team Description 11/30/2017 Routine [facility] Steph Barron Routine Services-PAYROLL ACCOUNTING SPECIALIST R, ASHU, BUSINESS BANKING OFFICER Visit [address], [address] [address] [phone] (Wo rk) Social History Tobacco Use Types Packs/Day Years Used Date Smoking Tobacco: Former Smokeless Tobacco: Never Alcohol Use Standard Drinks/Week Comments No 0 (1 standard drink = 0.6 oz pure alcoho l) Sex Assigned at Date Recorded Not on file documented as of this encounter Last Filed Vital Signs Vital Sign Reading Time Taken Comments Blood Pressure 111/62 11/30/2017 2:55 PM CDT Pulse 79 11/30/2017 2:55 PM CDT Temperature - - Respiratory Rate - - Oxygen Saturation - - Inhaled Oxygen Concentration - - Weight 127.6 kg (281 lb 6.4 oz) 11/30/2017 2:55 PM CDT Height - - Body Mass Index 41.56 05/28/2017 3:00 PM CDT documented in this encounter Progress Notes Steph Barron APRN, IMANI - 11/30/2017 2:45 PM CDT Doing well. Presents with and daughter. Concerned about tearing at . Reassurance provided that often times perineal/vaginal lacerations are less in subsequent pregnancies and guided pushing at time of delivery can help. Denies regular ctx, LOF, or VB . Baby is active. Labor warning signs reviewed. movement monitoring discussed. RTC weekly until delivery. documented in this encounter Plan of Treatment Not on filedocumented as of this encounter Visit Diagnoses Diagnosis Elderly primigravida in third trimester - Primary documented in this encounter Care Teams Liberal Arts And Humanities Chair Relationship Specialty Start Date End Date Radha Armendariz MD PCP - General 05/04/16 03/19/[address] [place] [address] [address] documented as of this encounter
--- OUTSIDE RECORDS SUMMARY | 2022-04-17 15:19 | XMS_ITS | Encounter Summary ---
:1980 Author Organization [facility] Address [address] [place] [address] Care Team Providers Name Role Phone Radha Armendariz MD Primary Care Provider Reason for Visit Reason Comments Routine Visit Encounter Details Date Type Department Care Team Description 11/23/2017 Routine [facility] Henrik Washington R outine Services-FINANCIAL ASSISTANCE SPECIALIST Visit [address], [address] [address] [phone] Social History Tobacco Use Types Packs/Day Years Used Date Smoking Tobacco: Former Smokeless Tobacco: Never Alcohol Use Standard Drinks/Week Comments No 0 (1 standard drink = 0.6 oz pure alcoho l) Sex Assigned at Date Recorded Not on file documented as of this encounter Last Filed Vital Signs Vital Sign Reading Time Taken Comments Blood Pressure 110/62 11/23/2017 3:05 PM CDT Pulse 92 11/23/2017 3:05 PM CDT Temperature - - Respiratory Rate - - Oxygen Saturation - - Inhaled Oxygen Concentration - - Weight 127 kg (280 lb) 11/23/2017 3:05 PM CDT Height - - Body Mass Index 41.35 05/28/2017 3:00 PM CDT documented in this encounter Progress Notes Carly Wells MA - 11/28/2017 2:28 PM CDT 36week episode sent to [facility]. Nikki Ribeiro MD - 11/28/2017 12:33 PM CDT Please send copy to [facility]. Please also send 36 week episode. Henrik Washington - 11/23/2017 2:50 PM CDT No c/o's. U/S yesterday showed 3038g (75-90%), KATTY 17, Vtx. GBS done. [facility] BID, PTL/PROM precautions reviewed. RTC 1 week. documented in this encounter Plan of Treatment Not on filedocumented as of this encounter Procedures Procedure Name Priority Date/Time Associated Diagnosis Comme nts GROUP B STREP Routine 11/23/2017 3:32 PM screening R esults for this SCREEN (OB PTS) CDT for streptococcus B proce dure are in the results section. documented in this encounter Results GROUP B STREP SCREEN (OB PTS) (11/23/2017 3:32 PM CDT) [facility] gist Method Time Signature Source Vag/Rec PN SOFT Site PN SOFT Culture Strep No Group B 11/26/2017 PN [facility] Screen Other Streptococcus 8:39 AM CDT Source Isolated Specimen (Source) Anatomical Collection Method Collection Time Re ceived Time Location / / Volume Laterality Vag/Rec: 11/23/2017 3:32 PM CDT Narrative PN SOFT - 11/26/2017 8:39 AM CDT Performed at [facility], [address] [place] [address], CLIA Number [id number] Henrik Washington MD LAB_1 Performing Organization Address City/State/ZIP Code Phon e Number PN SOFT [address] [place] [address] documented in this encounter Visit Diagnoses Diagnosis Obesity 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
--- OUTSIDE RECORDS SUMMARY | 2022-04-17 15:19 | XMS_ITS | Encounter Summary ---
:1980 Author Organization [facility] Address [address] [place] [address] Care Team Providers Name Role Phone Radha Armendariz MD Primary Care Provider Reason for Visit Reason Comments LAB RESULTS Encounter Details Date Type Department Care Team Description 12/18/2017 Telephone [facility] Francine Calderon APRN, LAB RESULTS Services-AG SERVICE MANAGER DESIGN ENGINEER [address] [facility], [address] [place] [address] [place] [address] [phone] Social History Tobacco Use Types Packs/Day Years Used Date Smoking Tobacco: Former Smokeless Tobacco: Never Alcohol Use Standard Drinks/Week Comments No 0 (1 standard drink = 0.6 oz pure alcoho l) Sex Assigned at Date Recorded Not on file documented as of this encounter Nursing Notes Alexandra Renteria RN - 12/18/2017 4:10 PM CDT Called patient to review lab results. Positive yeast on affirm culture. ??Please advise patient to use Monistat seven-day treatment [id number]. ??MS-DESIGN ENGINEER No further questions. Vaginitis Panel, DNA Probe Status: Final result ?Visible to patient: Yes (MyChart) Dx: Vaginal irritation Order: [id number] ? Notes Recorded by Francine Calderon APRN, DESIGN ENGINEER on 12/18/2017 at 4:04 PM Positive yeast on affirm culture. ??Please advise patient to use Monistat seven- day treatment [id number]. ??MS-DESIGN ENGINEER ?? Ref Range & Units 9:28 AM ?? Trichomonas vaginalis Not Detected Not Detected ?? Gardnerella vaginalis Not Detected Not Detected ?? Angela species Not Detected Detected (A) ?? Resulting Agency PN [facility] documented in this encounter Plan of Treatment Not on filedocumented as of this encounter Visit Diagnoses Not on filedocumented in this encounter Care Teams Continuing Education Specialist Relationship Specialty Start Date End Date Radha Armendariz MD PCP - General 05/04/16 03/19/18 [address] [place] [address] documented as of this encounter
--- OUTSIDE RECORDS SUMMARY | 2022-04-17 15:19 | XMS_ITS | Encounter Summary ---
:1980 Author [facility] Address [address] [place] [address] Care Team Providers Name Role Phone Anny Daily Sven [place], IMANI Primary Care Provider Reason for Visit Reason Comments No Show called pt, she said that she forgot. She will call the clinic to reschedule in the near future. Encounter Details Date Type Department Care Team Description 07/11/2018 Telephone [place] [facility] China Perez RDH No Show (called pt, Dentistry [address] she said that she [address] [place], [place] forgot. She will call [place], [place] [phone] the clinic to [phone] reschedu in the near future.) Social History Tobacco Use Types Packs/Day Years Used Date Smoking Tobacco: Former Smokeless Tobacco: Never Alcohol Use Standard Drinks/Week Comments No 0 (1 standard drink = 0.6 oz pure alcoho l) Sex Assigned at Date Recorded Not on file documented as of this encounter Nursing Notes China Perez RDH - 07/11/2018 4:22 PM CST called pt, she said that she forgot. She will call the clinic to reschedule in the near future. Michelle Perez 07/11/2018, 4:23 PM OSITION FLOOR LAYER documented in this encounter Plan of Treatment Not on filedocumented as of this encounter Visit Diagnoses Not on filedocumented in this encounter Care Teams Sheep Sticker Relationship Specialty Start Date End Date Anny Daily APRN, PHYSICIAN PCP - General Nurse Practitioner 03/20/18 [address] [place] [address] documented as of this encounter
--- OUTSIDE RECORDS SUMMARY | 2022-04-17 15:19 | XMS_ITS | Encounter Summary ---
:1980 Author [facility] Address [address] [place] [address] Care Team Providers Name Role Phone Anny Daily APRN, IMANI Primary Care Provider [phone] Reason for Referral Consult/Transfer Care (Routine) - Closed Specialty Diagnoses / Procedures Referred By Contact Refer red To Contact Diagnoses Uncomplicated alcohol dependence (HRC) Radha Armendariz MD [address] [place], [place] [address] Referral ID Status Reason Start Date Expiration Date Visits Requ ested Visits Authorized [id number] Closed 07/12/2018 10/11/2019 1 1 Scheduling Instructions If scheduling assistance is needed, plea se inquire with the medical office staff upon exiting your appointment or contact the ordering clinic for recommended locations. This recommended service/s may not be co celena by your insurance coverage. To find out your specific benefit coverage, please c all the number on your insurance card. IRER AND CHECKER Reason for Visit Reason Comments Follow-up Encounter Details Date Type Department Care Team Description 07/12/2018 Office Visit [facility] Radha Armendariz Uncompl icated alcohol Ramez Machuca MD dependence (HRC) [address] (Primary Dx) [place] [address] [place], [place] [phone] [id number] Social History Tobacco Use Types Packs/Day Years Used Date Smoking Tobacco: Former Smokeless Tobacco: Never Alcohol Use Standard Drinks/Week Comments No 0 (1 standard drink = 0.6 oz pure alcoho l) Sex Assigned at Date Recorded Not on file documented as of this encounter Last Filed Vital Signs Vital Sign Reading Time Taken Comments Blood Pressure 127/87 07/12/2018 2:14 PM REPAIRER AND CHECKER Pulse 81 07/12/2018 2:14 PM REPAIRER AND CHECKER Temperature - - Respiratory Rate - - Oxygen Saturation - - Inhaled Oxygen Concentration - - Weight 133.4 kg (294 lb) 07/12/2018 2:14 PM REPAIRER AND CHECKER Height - - Body Mass Index 42.18 07/04/2018 10:33 AM CDT documented in this encounter Progress Notes Radha Armendariz MD - 07/12/2018 2:00 PM CST Clinic Progress Note [facility] Date of Encounter: 07/12/2018 Presenting Concern: Chief Complaint Patient presents with ??? Follow-up ASSESSMENT: Encounter Diagnosis Name Primary? Uncomplicated alcohol dependence (HRC) Yes PLAN: Lennie was seen today for follow-up. Diagnoses and all orders for this visit: Uncomplicated alcohol dependence (HRC) - [facility] CARE COORDINATION CONSULT (AMB) I contacted our social service technician today, and we are going to set up an appointment for her to meet with Lennie and her to connect them with community resources to get Lennie the support she needs to work on quitting drinking and maintaining long-term sobriety. I congratulated her on her decision to quit drinking, and also thanked her for supporting her. She has been down this road before and knows what to expect, and feels prepared for the effort. She has worked with our psychiatry department before on this issue, most recently in April of this year and depending on what program we are ultimately able to connect her with, we may also want to get her back in with behavioral health here as well. SUBJECTIVE: Lennie is here today with concerns about alcohol abuse. She is currently drinking 1 1/2 to 2 bottles of wine a night. She has been through treatment for alcohol overuse before on more than one occasion;her last period of sobriety was during her last and she started drinking after her delivery about five months ago. Her use has gradually increased over time as she has used it as a coping mechanism. Her last round of treatment was done through [facility] a year and a half ago, and she [facility] as a teenager. She is on state insurance currently, which does not cover [facility]. She has not yet looked into treatment options. She has been to before but does not have a sponsor currently. She does have numbers for people she's been to treatment with before. 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 She is accompanied by her today, who is supportive. Social History, Adverse Drug Reactions, and Medications were reviewed and updated as needed in the EMR. OBJECTIVE: Vital Signs: Blood pressure 127/87, pulse 81, weight 294 lb (133.4 kg), unknown if currently . General: Alert, in no acute distress. This document was prepared using dictation software and may contain typographical errors. *SH~DNS~mySOAP IRER AND CHECKER documented in this encounter Plan of Treatment Not on filedocumented as of this encounter Visit Diagnoses Diagnosis Uncomplicated alcohol dependence (HRC) - Primary Other and unspecified alcohol dependence , unspecified drinking behavior documented in this encounter Care Teams Jacket Preparer Relationship Specialty Start Date End Date Anny Daily, RECREATION ACTIVITIES COORDINATOR, HAWK MISSILE SYSTEM CREWMEMBER PCP - General Nurse Practitioner 03/20/18 [address] [place] [id number] documented as of this encounter"
--- OUTSIDE RECORDS SUMMARY | 2022-04-17 15:19 | XMS_ITS | Encounter Summary ---
:1980 Author Organization [facility] Address [address] [place] [address] Care Team Providers Name Role Phone KillianAnny APRN, IMANI Primary Care Provider [phone] Reason for Referral Procedure/Equipment (Routine) - Incomplete Specialty Diagnoses / Procedures Referred By Contact Refer red To Contact Diagnoses Pain of left lower extremity Moy Mcwilliams MD Procedures US VENOUS LEFT LOWER EXTREM DOPPLER [address] [place] [address] Referral ID Status Reason Start Date Expiration Date Visits V isits Requested Authorized [id number] Incomplete 12/30/2018 03/30/2020 1 1 Reason for Visit Reason Comments Breast Pain Encounter Details Date Type Department Care Team Description 12/30/2018 Hospital Encounter Moy Garcia Mastitis; Dimas Parrish MD Pain of left lower extremity [address] [place] [address] [id number] Social History Tobacco Use Types Packs/Day Years Used Date Smoking Tobacco: Former Smokeless Tobacco: Never Alcohol Use Standard Drinks/Week Comments No 0 (1 standard drink = 0.6 oz pure alcoho l) Sex Assigned at Date Recorded Not on file documented as of this encounter Last Filed Vital Signs Vital Sign Reading Time Taken Comments Blood Pressure 105/78 12/30/2018 2:11 PM CDT Pulse 78 12/30/2018 2:11 PM CDT Temperature 36.7 ??C (98 ??F) 12/30/2018 2:11 PM CDT Respiratory Rate 16 12/30/2018 2:11 PM CDT Oxygen Saturation 98% 12/30/2018 2:11 PM CDT Inhaled Oxygen Concentration - - Weight - - Height - - Body Mass Index - - documented in this encounter Discharge Instructions AttachmentsThe following attachments cannot be sent through Care Everywhere. Mastitis (Yi)documented in this encounter Medications at Time of Discharge Medication Sig Dispensed Refills Start Date End Date B Complex Vitamins (B 0 COMPLEX-B12 TR OR) Tpwvkaq-Fguhxmmdb-Ocdpvh 0 n D (CALCIUM MAGNESIUM OR) Iron, Ferrous Gluconate, 1 Tab. 0 256 (28 FE) MG TABS 27-0.8 MG Take 1 Tab by mouth. 0 tablet Vitamin D, 800 Units. 0 Cholecalciferol, 400 units CAPS cephalexin (KEFLEX) 500 Take 1 Capsule by 40 Capsule 0 12/3001/09/2019 MG capsule mouth 4 times a day for 10 days. potassium chloride SA Take 10 mEq by mouth 0 10/13/2020 (KLOR-CON) 10 MEQ two times a day. controlled release tablet documented as of this encounter ED Notes Moy Mcwilliams MD - 12/30/2018 2:32 PM CDT Clinic Visit SUBJECTIVE: History of Present Illness: Lennie Irene is a 38 y.o. female who presents to the Urgent care with her significant other and twochildren with complaints of possible mastitis. She noticed some breast tenderness yesterday morning.This morning she noticed redness and swelling so she decided to come in. She feels that symptoms are worsening. She has not tried any home treatment. She continues to breastfeed. She denies current fever, but does note she had a cold a few days ago and had fever and chills then. She states that these symptoms have resolved. She has not had mastitis in the past. Lennie also complains of heart palpitations. She notices these at random times throughout the day. She does not feel that her heart is racing during these episodes. Lennie also complains of ankle swelling. She notes that the left side is worse than the right. She notes that she has some pain in the popliteal area of the left knee. She has had these pain for a monthor so. She has not been seen for her leg pain and swelling. She denies calf pain. She denies injury.She denies SOB. She is not currently taking control. She has no other complaints today. Past Medical History: Reviewed in [facility] Past Medical History: Diagnosis Date ??? Anemia 03/01/2012 ??? Anxiety (HRC) ??? Arthritis ??? Depression (HRC) 03/01/2012 ??? Heartburn ??? Irregular menstrual cycle ??? Migraines ??? Obesity (HRC) ??? Rash ??? Trauma ??? Varicella Adverse Drug Reactions: Reviewed in [facility] Adhesive Medications: Reviewed in [facility] No current facility-administered medications for this encounter. Current Outpatient Medications Medication Sig Note Dispense Refill ??? B Complex Vitamins (B COMPLEX-B12 TR OR) ??? Tixulkm-Wzlxshgbu-Oxftnrt D (CALCIUM MAGNESIUM OR) ??? cephalexin (KEFLEX) 500 MG capsule Take 1 Capsule by mouth 4 times a day for 10 days. 40 Capsule0 ??? Iron, Ferrous Gluconate, 256 (28 FE) MG TABS 1 Tab. 11/12/2017: Received from: [facility] Received Sig: As directed 1 tablet once daily. ??? potassium chloride SA (KLOR-CON) 10 MEQ controlled release tablet Take 10 mEq by mouth two timesa day. ? ? 27-0.8 MG tablet Take 1 Tab by mouth. 05/28/2017: [facility] Re[facility] Sig: Take 1 tablet by mouth once daily. Indications: ??? Vitamin D, Cholecalciferol, 400 units CAPS 800 Units. Social History: Marital Status: Review of Systems: All systems were reviewed and found to be negative except as noted above. OBJECTIVE: Vital Signs: Reviewed in flowsheet charting of [facility] Blood pressure 105/78, pulse 78, temperature 36.7 ??C (98 ??F), temperature source Oral, resp. rate 16, SpO2 98 %, currently . General: Patient does not appear acutely ill. Patient awake alert no acute distress well-nourished well-developed normal affect. Head: Head symmetric nontraumatic Nose: External nose normal. Respiratory: Normal respiratory effort. Lungs clear auscultation bilaterally. Heart: RR without murmurs. Breast: Left breast is erythematous around the areola. She has swelling to the lateral breast. Thereis some minor streaking from the areola extending superiorly. She is able to express white breast milk. Left breast is warm and tender to palpation. Right breast is normal. Extremity: Ankles are swollen bilaterally with left worse than right. No erythema. Mild bruising to the right ankle. No calf tenderness bilaterally. Pain to palpation in the left popliteal area. ASSESSMENT: 1. Mastitis 2. Pain of left lower extremity PLAN: New Prescriptions CEPHALEXIN (KEFLEX) 500 MG CAPSULE Take 1 Capsule by mouth 4 times a day for 10 days. Breast pain and swelling consistent with mastitis. We will treat with cephalexin for 10 days, continued breast feeding, and warm compresses. She should return if symptoms do not resolve. Right leg pain and swelling is somewhat concerning for DVT. Patient is concerned at this time and after discussion would feel more comfortable with an ultrasound. Results of the ultrasound were reviewed and showed no DVTs.. Palpitations consistent with premature atrial contractions. Patient should go to the ER if she ever has chest pain or a rapid pulse. Patient understands and feels comfortable with the assessment and plan. Patient seen with ELEANOR Arroyo student. documented in this encounter Plan of Treatment Not on filedocumented as of this encounter Results US VENOUS LEFT LOWER [...] excluded by this technique. Moy Mcwilliams MD [facility] documented in this encounter Visit Diagnoses Diagnosis Mastitis Inflammatory disease of breast Pain of left lower extremity Pain of left lower extremity Triage Assessment Note - Adis Ma RN - 12/30/2018 2:08 PM CDT C/o right sided breast pain, redness, firmness onset yesterday. Pt is . documented in this encounter Care Teams Ladies Attendant Relationship Specialty Start Date End Date Anny Daily APRN, HAT COPYIST PCP - General Nurse Practitioner 03/20/18 [address] [place] [id number] documented as of this encounter
--- OUTSIDE RECORDS SUMMARY | 2022-04-17 15:19 | XMS_ITS | Encounter Summary ---
:1980 Author Organization [facility] Address [address] [place] [address] Care Team Providers Name Role Phone Anny Daily APRN, NURSING AGENCY MANAGER Primary Care Provider [phone] Reason for Visit Reason Comments CHEST PAIN Encounter Details Date Type Department Care Team Description 03/20/2018 Nurse Triage [facility] Anny Daily APRN , CHEST PAIN Medicine [facility] [address] [place] [address] [place] [address] [phone] (Wo rk) Social History Tobacco Use Types Packs/Day Years Used Date Smoking Tobacco: Former Smokeless Tobacco: Never Alcohol Use Standard Drinks/Week Comments No 0 (1 standard drink = 0.6 oz pure alcoho l) Sex Assigned at Date Recorded Not on file documented as of this encounter Nursing Notes Brianne Cobb RN - 03/20/2018 4:11 PM CDT Spoke with patient regarding chest pain discomfort onset 03/19/18 yesterday, location center chest, describes pain as a heaviness and tightness, rates pain at 4/10, radiation to arm, chest tightness episodes last 20-30 minutes (not constant), reports of dizziness associated with chest tightness episodes as well. Advised ER NOW. Patient has someone with her now that is able to drive her to ER now. Patient plans to follow advise. Reason for Disposition ??? Chest pain lasting longer than 5 minutes and ANY of the following:* Over 50 years old* Over 30 years old and at least one cardiac risk factor (i.e., high blood pressure, diabetes, high cholesterol,obesity, smoker or strong family history of heart disease)* Pain is crushing, pressure-like, or heavy * Took nitroglycerin and chest pain was not relieved* History of heart disease (i.e., angina, heartattack, bypass surgery, angioplasty, CHF) Protocols used: CHEST [id number] Problem list reviewed as related to this call. documented in this encounter Plan of Treatment Not on filedocumented as of this encounter Visit Diagnoses Not on filedocumented in this encounter Care Teams Security Chief Museum Relationship Specialty Start Date End Date Anny Daily APRN, NURSING AGENCY MANAGER PCP - General Nurse Practitioner 03/20/[id number] [place] [id number] documented as of this encounter
--- OUTSIDE RECORDS SUMMARY | 2022-04-17 15:19 | XMS_ITS | Encounter Summary ---
:1980 Author Organization [facility] Address [address] [place] [address] Care Team Providers Name Role Phone KillianAnny APRN, TAPPING MACHINE OPERATOR AUTOMATIC Primary Care Provider [phone] Reason for Visit Reason Comments Problem Focused Exam UR crown broke off Encounter Details Date Type Department Care Team Description 03/14/2019 Office Visit [facility], Problem Focused Exam Dentistry Lottie Heath DMD (UR crown broke off) [address] [place] [address] [place] [address] Social History Tobacco Use Types Packs/Day Years [...] Taken Comments Blood Pressure - - Pulse 76 03/14/2019 8:24 AM CDT Temperature - - Respiratory Rate - - Oxygen Saturation - - Inhaled Oxygen Concentration - - Weight - - Height - - Body Mass Index - - documented in this encounter Progress Notes Huy Lottie Kumar, DMD - 03/14/2019 7:30 AM CDT EMERGENCY/PROBLEM FOCUS DENTAL VISIT NOTE SUBJECTIVE: Lennie is a 38 y.o. female who presents for Problem Focused Exam (UR crown broke off) Chief Complaint: Broken tooth, crown broke off a tooth that had a RCT and now the gum is growing into the area and the gum does get irritated Current level of pain: 0/10 Worst pain level associated with this problem: 0/10 Location of pain: Maxillary right Nature of pain: N/A Eliciting factors: N/A Duration: N/A Alleviating factors: Not taking anything Swelling: Location: UR above tooth, Duration: Off and on OBJECTIVE: Reviewed with the patient: Medical history, Dental history and Radiographs Radiographic interpretation: loss of clinical crown, caries #4 loss of clinical crown, previous RCT, caries, gingival tissue has overgrown distal aspect of tooth, unrestorable due to caries/loss of tooth structure ASSESSMENT: Diagnosis: The encounter diagnosis was Retained tooth root. Prognosis: Hopeless PLAN: Reviewed findings with patient. Discussed due to loss of crown/caries the tooth is non-restorable and extraction is indicated. Offered EXT today, patient accepted. See visit notes. Procedure was well tolerated. Encouraged TOOL MACHINE SHOP SUPERVISOR exam and follow-up care. POI given. AQA I discussed the Dental findings, Prognosis and Treatment options with the patient. All questions answered. They expressed understanding and gave informed consent to proceed dental treatment/services. ANESTHESIA: Topical with 20% benzocaine. 1.25 carpules 2% lidocaine with 1:100,000 epinephrine was administered with infiltration in #4. ORAL SURGICAL SERVICES: Preoperative blood pressure was taken and recorded Site of surgery: Verified with the patient Extraction: #4 Flap: Envelope Bone removal: N/A Section: N/A Alveoplasty: N/A Irrigation: Sterile saline Sutures: None Patient tolerated the procedure : Complications: None Postoperative blood pressure was taken and recorded POST-OP INSTRUCTIONS: Reviewed verbally and in writing with the patient ?? The mouth will be numb approximately two to four hours. ?? If oozing occurs hold gauze with firm pressure against surgical site until oozing has stopped. ?? Contact us if bleeding continues for more than two hours. ?? Do not disturb surgical site ?? Rinse with warm salt water beginning tomorrow after meals. ?? Avoid physical exercise and exertion today (resume normal activities as tolerated). ?? Smoking may delay healing. ?? Drink cool non-carbonated liquids (no straws) after all bleeding has stopped. ?? Cold soft foods are ideal first day, consistency of foods can progress by 2nd day as tolerated. ?? Avoid foods such as nuts, sunflower seeds, and popcorn until healing is more established. ?? Teeth may be brushed and flossed gently but avoid stimulating the surgical site. ?? 600 mg Ibuprofen and 1000 mg Acetaminophen at six hour intervals. Advised not to take more than 2400 mg of Ibuprofen or 3000 mg of Acetaminophen in a 24-hour period recommended. No Medications ordered this encounter Care was assisted by Layla Godinez DMD 03/14/2019, 9:55 PM documented in this encounter Plan of Treatment Not on filedocumented as of this encounter Procedures Procedure Name Priority Date/Time Associated Diagnosis Comme nts 4 EXTRACTION-ERUPTED Routine 03/14/2019 7:30 AM CDT Retained t ooth root TOOTH OR EXPOSED RT FILM-PERIAPICAL FIRST Routine 03/14/2019 7:30 AM CDT Retained tooth root documented in this encounter Visit Diagnoses Diagnosis Retained tooth root - Primary Retained dental root documented in this encounter Care Teams Spaghetti Press Helper Relationship Specialty Start Date End Date Anny Daily, HVAC/R INSTRUCTOR, TAPPING MACHINE OPERATOR AUTOMATIC PCP - General Nurse Practitioner 03/20/18 [address] [address] [place] [id number] documented as of this encounter
--- OUTSIDE RECORDS SUMMARY | 2022-04-17 15:19 | XMS_ITS | Encounter Summary ---
:1980 Author Organization [facility] Address [address] [place] [address] Care Team Providers Name Role Phone KillianAnny APRN, IMANI Primary Care Provider [phone] Reason for Visit Reason Comments DENTAL PAIN Encounter Details Date Type Department Care Team Description 07/30/2018 Telephone [place] [facility] TremlSalvador, JOHNSON DENTAL PAIN Dentistry [address] [place] [address] [place], [place] [address] [phone] Social History Tobacco Use Types Packs/Day Years Used Date Smoking Tobacco: Former Smokeless Tobacco: Never Alcohol Use Standard Drinks/Week Comments No 0 (1 standard drink = 0.6 oz pure alcoho l) Sex Assigned at Date Recorded Not on file documented as of this encounter Nursing Notes Alexandra Britton - 07/30/2018 11:33 AM CST Pt called back, unable to find a ride for same day, pt requested something a few days out so she canfind transportation. Alexandra Britton 07/30/2018, 11:33 AM [facility] Nikki Bryson - 07/30/2018 9:09 AM CST EMERGENCY/PROBLEM FOCUS PRIOR VISIT QUESTIONNAIRE 1. Have you ever been seen in our office before? [x] No [] Yes Last Seen: [] Less than 5 years [] 5 years or more Comments: 2. What is causing your problem? [] Accident [] Lost Baptism [x] Broken Tooth [] Chipped Tooth [] Toothache Location: [] Upper Left [] Lower Left [] Upper Front [] Lower Front [x] Upper Right [] Lower Right Comments: UR broken tooth 3. What kind of discomfort are you in? [] No Discomfort [] Awake Last Night [] Radiating Pain [x] Throbbing Pain Comments: 4. When does the discomfort occur? [] Cold Sensitive [] Constantly [] Pressure Sensitive [] Hot Sensitive [] Occasionally [] Other (fill in comments) Comments: 5. How long has the degree of discomfort lasted? [] Longer Duration [] Other (enter duration in comments) Comments: A couple months ago the tooth broke but the last couple days experiencing swelling/pain Are you experiencing any other signs or symptoms? [] Bleeding/Oozing [] Fever [] Other (list other signs/symptoms in comments) Comments: Are you taking medications for this problem? [x] No [] Yes (list meds in comments) Comments: 6. Have you been advised to take antibiotics prior to dental treatment? [] No [] Yes Comments: [facility] documented in this encounter Plan of Treatment Not on filedocumented as of this encounter Visit Diagnoses Not on filedocumented in this encounter Care Teams Environmental Aid Relationship Specialty Start Date End Date Anny Daily APRN, SET UP INSPECTOR PCP - General Nurse Practitioner 03/20/18 [address] [address] [place] [id number] documented as of this encounter
--- OUTSIDE RECORDS SUMMARY | 2022-04-17 15:19 | XMS_ITS | Encounter Summary ---
:1980 Author Organization [facility] Address [address] [place] [address] Care Team Providers Name Role Phone Killian, Anyn Machuca APRN, VISION MIXER Primary Care Provider [phone] Reason for Visit Reason Comments TOOTHACHE Encounter Details Date Type Department Care Team Description 11/28/2018 Telephone [place] Giancarlo Dempsey, PETAR TOOTHACHE Dentistry [address] [place] [address] [place], [place] [address] [phone] Social History Tobacco Use Types Packs/Day Years Used Date Smoking Tobacco: Former Smokeless Tobacco: Never Alcohol Use Standard Drinks/Week Comments No 0 (1 standard drink = 0.6 oz pure alcoho l) Sex Assigned at Date Recorded Not on file documented as of this encounter Nursing Notes Minoo Mancera S - 11/28/2018 8:05 AM CDT EMERGENCY/PROBLEM FOCUS PRIOR VISIT QUESTIONNAIRE Pt states she had a crown come off about 6 months ago on an older rct, throbbing,pain and light bleeding with pressure. No same day open time available, pt declined to speak w/ member services, states she will call back to check for same day appt 1. Have you ever been seen in our office before? [x] No [] Yes Last Seen: [] Less than 5 years [] 5 years or more Comments: 2. What is causing your problem? [] Accident [x] Lost Nondenominational [] Broken Tooth [] Chipped Tooth [x] Toothache Location: [] Upper Left [] Lower Left [] Upper Front [] Lower Front [x] Upper Right [] Lower Right Comments: 3. What kind of discomfort are you in? [] No Discomfort [] Awake Last Night [] Radiating Pain [x] Throbbing Pain Comments: 4. When does the discomfort occur? [] Cold Sensitive [] Constantly [x] Pressure Sensitive [] Hot Sensitive [] Occasionally [] Other (fill in comments) Comments: 5. How long has the degree of discomfort lasted? [x] Longer Duration [] Other (enter duration in comments) Comments: 6 months ago crown came off, throbbing pain for 2 days Are you experiencing any other signs or [...] on filedocumented in this encounter Care Teams Net Trainer Relationship Specialty Start Date End Date Anny Daily APRN, VISION MIXER PCP - General Nurse Practitioner 03/20/18 [address] [place] [address] documented as of this encounter
--- OUTSIDE RECORDS SUMMARY | 2022-04-17 15:19 | XMS_ITS | Encounter Summary ---
:1980 Author [facility] Address [address], [place] [address] Care Team Providers Name Role Phone Radha Armendariz MD Primary Care Provider Reason for Visit Reason Comments POST- vaginal bleeding Encounter Details Date Type Department Care Team Description 01/02/2018 Nurse Triage [place] Francine Calderon, POST- (vaginal Services-OUTBOUND CALL CENTER REPRESENTATIVE FRONT EDGER, MANAGER CONVENTION bleeding) [address] [place] [address], [address] [place] [address] [address] [place] [address] [phone] Social History Tobacco Use Types Packs/Day Years Used Date Smoking Tobacco: Former Smokeless Tobacco: Never Alcohol Use Standard Drinks/Week Comments No 0 (1 standard drink = 0.6 oz pure alcoho l) Sex Assigned at Date Recorded Not on file documented as of this encounter Nursing Notes Jocelyn Garcia RN - 01/02/2018 1:27 PM CDT Reason for Disposition ??? Normal bleeding Protocols used: - VAGINAL BLEEDING AND [id number] Pt delivered vaginally 2 weeks ago, states is still passing red blood, no clots. Changes pad about 1-2 times per day. Care advice reviewed. Pt verbalizes her understanding and has no further questions. documented in this encounter Plan of Treatment Not on filedocumented as of this encounter Visit Diagnoses Not on filedocumented in this encounter Care Teams Spring Coiler Relationship Specialty Start Date End Date Radha Armendariz MD PCP - General 05/04/16 03/19/[address] [place] [address] documented as of this encounter
--- OUTSIDE RECORDS SUMMARY | 2022-04-17 15:19 | XMS_ITS | Encounter Summary ---
:1980 Author Organization [facility] Address [address] [place] [address] Care Team Providers Name Role Phone Anny Daily AIRCRAFT MAINTENANCE SUPERVISOR, NUTRITIONAL CHEMIST Primary Care Provider [phone] Reason for Visit Reason Comments BLEEDING, DURING Encounter Details Date Type Department Care Team Description 10/14/2019 Nurse Triage [facility] Anny Daily, KATELYNN DIAL, DURING Medicine AIRCRAFT MAINTENANCE SUPERVISOR, NUTRITIONAL CHEMIST [address] [place] [address] [address] [place] [address] [place] [phone] (Wo rk) Social History Tobacco Use Types [...] documented as of this encounter Nursing Notes Desirae Ayala RN - 10/14/2019 4:32 PM CST Reason for Disposition ? ? Constant abdominal pain lasting > 1 hour Protocols used: - VAGINAL BLEEDING LESS THAN 20 WEEKS [id number] Patient is calling in via ER line for abdominal pain and bleeding. States she is about 8 weeks and experiencing abdominal pain that has been intermittent all day. Past hour pain is radiating to the left side and rated at 5 out of 10. Pain has been constant past 1 hour. Also passed blood/ brown discharge today. Home care and problem list reviewed as pertaining to the call. Recommended UC. Patient agrees. CIATE PROFESSOR OF LITERACY documented in this encounter Plan of Treatment Not on filedocumented as of this encounter Visit Diagnoses Not on filedocumented in this encounter Care Teams Community Health Outreach Worker Relationship Specialty Start Date End Date Anny Daily APRN, NUTRITIONAL CHEMIST PCP - General Nurse Practitioner 03/20/18 [address] [place] [address] documented as of this encounter
--- OUTSIDE RECORDS SUMMARY | 2022-04-17 15:19 | XMS_ITS | Encounter Summary ---
:1980 Author Organization [facility] Address [address] [place] [address] Care Team Providers Name Role Phone Crys Dailyrenee Machuca APRN, IMANI Primary Care Provider [phone] Reason for Visit Reason Comments Other pain at front of neck, ?wond ering about thyroid Encounter Details Date Type Department Care Team Description 04/28/2019 Office Visit [facility] Derrick Rausch P, [facility] PA-C (Primary Dx) [address] [place] [address] [address] [phone] [place] [address] (Wo rk) Social History Tobacco Use Types [...] Sign Reading Time Taken Comments Blood Pressure 127/88 04/28/2019 4:50 PM CDT Pulse 81 04/28/2019 4:50 PM CDT Temperature 37.1 ??C (98.7 ??F) 04/28/2019 4:50 PM CDT Respiratory Rate - - Oxygen Saturation - - Inhaled Oxygen Concentration - - Weight - - Height - - Body Mass Index - - documented in this encounter Progress Notes Derrick Rausch PA-C - 04/28/2019 4:45 PM CDT Images from the original note were not included. Internal Medicine - [facility] Derrick Rausch PA-C Lennie Irene 38 y.o. Female : 1980 PN Date of Service: 04/28/2019 SUBJECTIVE Chief Complaint/History of Present Illness: Chief Complaint Patient presents with ??? Other pain at front of neck, ?wondering about thyroid Lennie Irene is a 38 y.o. female presenting to the internal medicine service today for evaluation of ongoing neck/throat pain. The patient states that she has had discomfort in her anterior neck for the past 2 months. She denies any specific mechanism of injury or trauma that would have predisposed her to this type of discomfort. She denies specific throat pain that would be typically associated with an upper respiratory infection. She denies a personal history of similar types of pain. Aggravatingfactors include some swallowing. Alleviating factors denied. The patient denies any significant associated symptoms. She denies use of bmtq-zlo-[id number] medications are at home remedies to alleviate her symptoms. Patient denies any recent domestic or international travel. The patient does not have a history of asthma. She does have a history recurrent gastroesophageal reflux disease, and states that she takes Prevacid as needed. She denies family history of GI cancers. Past medical, surgical, family, social history reviewed and updated within chart. Medications and allergies reviewed and updated within chart. Review of Systems: General: negative HEENT: negative Pulmonary: No cough, sputum, or hemoptysis, No wheezing and No shortness or breath Cardiac: Patient denies chest pain, palpitations, irregular heart beat, murmur, dyspnea, orthopnea and swelling GI: See HPI. : Denies problems with urinary stream. Neurological: Denies any headaches, tremors, dizziness, vertigo, memory loss, confusion, weakness, numbness or tingling. Musculoskeletal: Denies any joint swelling, joint pain, or loss of range of motion. Vascular: Denies phlebitis, varicosities, claudication, or cramping. Endocrine: Negative Hematologic: there is no easy bleeding or bruising Dermatologic: Denies rashes, changed moles, dryness, pruritus, lumps, or pigment changes. Psychiatric: Denies any anxiety or depression, sleeping problems or history of abuse. OBJECTIVE Vital Signs: BP 127/88 (BP Location: Right Arm, BP Cuff Size: Large) Pulse 81 Temp 37.1 ??C (98.7 ??F) General: Patient alert and oriented x3 in no acute distress. Well-developed, well-nourished 38 y.o. female who appears stated age. Skin: Warm and moist. Nails without clubbing, cyanosis. No suspicious nevi, rash, petechiae, jaundice, nodules or ecchymosis HEENT: Head: Skull NC/AT, hair with appropriate texture. No lesions. Eyes: Conjunctivae/corneas clear. PERRL, EOMI intact. Fundi benign. Ears: Normal appearance. TMs clear bilaterally without perforation or erythema. External auditory canals without debris and discharge. Nose: Nares normal. Septum midline. Mucosa normal. No drainage. No maxillary/frontal sinus pressure with palpation. Oropharynx: Oral mucosa pink, adequate dentition and gums. Posterior oropharynx without erythema or exudate. Uvula midline. Neck: Supple without thyromegaly, nodules or mass. Normal carotid upstroke, no bruits. CV: RRR. Lenoir S1/S2 without murmurs, gallops, rubs, or clicks. Resp: Thorax symmetric with adequate expansion. CTA and percussion without adventitious sounds. No cough, dyspnea. Lymphatic: No cervical, supraclavicular lymphadenopathy. MSK: Gross ROM intact in bilateral upper and lower extremities. Patient ascends to exam table without assistance. Neuro: CN II-XII grossly intact Psych: The patient is well-groomed and cheerful. Speech is fluent with coherent thought processes. Appropriate eye contact. Active and attentive during exam. ASSESSMENT and ORDERS Diagnosis and Associated Orders ICD-10-CM 1. Neck discomfort M54.2 TSH with Free T4 (if TSH Abnormal) DISCUSSION and PLAN Lennie Irene is a 38 y.o. female who presents to the internal medicine service for evaluation of ongoing throat/neck discomfort. Below are diagnoses for today's visit and the corresponding plan for each. Neck discomfort At this point, I am uncertain to of a specific diagnosis to attribute to the patient's current symptomatology. We did discuss the possibility of gastroesophageal reflux causing discomfort in the lower throat. For the next 30 days, I do want the patient to try a daily Prevacid. I encouraged her to contact me in 2 weeks with updates. If, she is still experiencing symptoms at that time, I would like to pursue a course of Flonase with her. We are going to check a thyroid level today just in case there is underlying nodular enlargement. - TSH with Free T4 (if TSH Abnormal); Future Follow-up: PRN in clinic for persistent or worsening symptoms. Derrick Rausch PA-C [facility] documented in this encounter Plan of Treatment Not on filedocumented as of this encounter Results TSH with Free T4 (if TSH Abnormal) (04/28/2019 5:01 PM CDT) athologist Signature TSH, Reflex 2.89 0.30 - 4.50 04/28/2019 [facility] uIU/mL 10:28 PM CDT LABORATORY Specimen Anatomical Collection Method / Collection Time Recei mia Time (Source) Location / Volume Laterality Blood Venipuncture / 04/28/2019 5:01 04/28/2019 5:01 Unknown PM CDT PM CDT Narrative [facility] - 04/28/2019 10:28 PM CDT Lab will automatically reflex to Free T4 when TSH results are <0.30 uIU/mL or >4.50 mIU/mL. Derrick Rausch PA-C LAB_1 Performing Organization Address City/State/ZIP Code Phon e Number [facility] [address] [place] [address] documented in this encounter Visit Diagnoses Diagnosis Neck discomfort - Primary documented in this encounter Care Teams Drum Sander Offbearer Relationship Specialty Start Date End Date Anny Daily, MARKETING ASSISTANT RETAIL DIVISION, BAGGAGE CLERK PCP - General Nurse Practitioner 03/20/18 [address] [place] [address] (work) documented as of this encounter
--- OUTSIDE RECORDS SUMMARY | 2022-04-17 15:19 | XMS_ITS | Encounter Summary ---
:1980 [facility] Address [address] [place] [address] Care Team Providers Name Role Phone Radha Armendariz MD Primary Care Provider Reason for Visit Reason Comments Concerns Encounter Details Date Type Department Care Team Description 12/13/2017 Telephone [place] [facility] [place] MD Concerns Services-PUBLIC HOUSING INTERVIEWER [address] [address] [place] [address] [address] [place] [address] [place], [place] [phone] (Wo rk) [address] [phone] Social History Tobacco Use Types Packs/Day Years Used Date Smoking Tobacco: Former Smokeless Tobacco: Never Alcohol Use Standard Drinks/Week Comments No 0 (1 standard drink = 0.6 oz pure alcoho l) Sex Assigned at Date Recorded Not on file documented as of this encounter Nursing Notes Alexandra Renteria RN - 12/13/2017 9:49 AM CDT Patient's child was dx with strep throat today and mother has pneumonia. Advised to separate family,clean surfaces, and invited family to wear a mask. Patient denies sore throat, fever, cough at this time, if sx develop needs to be evaluated. No further questions. documented in this encounter Plan of Treatment Not on filedocumented as of this encounter Visit Diagnoses Not on filedocumented in this encounter Care Teams Broomcorn Sorter Relationship Specialty Start Date End Date Radha Armendariz MD PCP - General 05/04/16 03/19/[address] [place] [address] documented as of this encounter
--- OUTSIDE RECORDS SUMMARY | 2022-04-17 15:19 | XMS_ITS | Encounter Summary ---
:1980 Author Organization [facility] Address [address] [place] [address] Care Team Providers Name Role Phone KillianAnny APRN, DIRECTOR OF EVENT MARKETING Primary Care Provider [phone] Reason for Visit Procedure/Equipment (Routine) - Incomplete Specialty Diagnoses / Procedures Referred By Contact Refer red To Contact Diagnoses Neck pain Karolina Mauricio MD Procedures XR Cervical Spine 2 Views [address] [facility] [place] [address] Referral ID Status Reason Start Date Expiration Date Visits V isits Requested Authorized [id number] Incomplete 07/04/2018 10/03/2019 1 1 Encounter Details Date Type Department Care Team Description 07/04/2018 Imaging [facility] Karolina Mauricio MD Neck pain [address] [facility] [place] [address] [place] [address] [phone] (Wo rk) Social History Tobacco Use Types [...] Priority Date/Time Associated Diagnosis Comme nts XR CERVICAL SPINE 2 Routine 07/04/2018 11:18 AM Neck pain R esults for this VIEWS CDT procedure are i n the results section. documented in this encounter Results XR Cervical Spine 2 [...] this encounter Visit Diagnoses Diagnosis Neck pain Cervicalgia documented in this encounter Care Teams Hand Clerical Verifier Relationship Specialty Start Date End Date Anny Daily, BROWNING PROCESSOR, DIRECTOR OF EVENT MARKETING PCP - General Nurse Practitioner 03/20/18 [address] [place] [address] documented as of this encounter
--- OUTSIDE RECORDS SUMMARY | 2022-04-17 15:19 | XMS_ITS | Encounter Summary ---
:1980 Author Organization [facility] Address [address] [place] [address] Care Team Providers Name Role Phone Anny Daily APRN, CNP Primary Care Provider [phone] Reason for Visit Reason Comments HC Face To Face Visit CD resources Encounter Details Date Type Department Care Team Description 07/12/[address] [facility] [place] [facility] Face To Face Office Visit Medicine RICHAR Shaffer Visit (CD resources) [address] [place] [address] [place] [address] [address] [place] [address] [place], [place] [phone] [id number] Social History Tobacco Use Types Packs/Day Years Used Date Smoking Tobacco: Former Smokeless Tobacco: Never Alcohol Use Standard Drinks/Week Comments No 0 (1 standard drink = 0.6 oz pure alcoho l) Sex Assigned at Date Recorded Not on file documented as of this encounter Progress Notes Isha Brink LICSW - 07/12/2018 3:00 PM CST Care Coordination Visit Pt: Lennie Josemanuel Irene Referred by: Anny Daily APRN, CNP Reason for visit: CD resources Lennie was seen with spouse and children. Discussion/actions: Sw met with pt and spouse after pt's MD appt. Pt came to see MD as she states she is concerned abouther drinking. She has been through treatment in the past and would like to explore what options are available to her. She states that she is currently drinking 1 to 2 bottles of wine per evening. 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 She feels bad about her drinking and would like to stop. However, with the two small children and not having day care she is concerned about what her treatmentoptions would be. Adrian thanked pt for coming in to the clinic and asking for help. Adrian explained that th e first step is to complete a Rule 25 and that the car clerk pullman will work with her given her social circumstances. Pt was appreciative of time and resources. Patient barrier(s) to learning identified: Finance and Emotional. Patient received verbal instructions and written materials tailored to his or her preferred method of learning. Literacy level assessed (as appropriate). Interventions, including teach back, used to verify understanding. No flowsheet data found. Patient Goal(s): 1. Pt will utilize CD resources provided to her by adrian SHARED PLAN: Adrian was able to provide pt with CD resources and how to obtain a Rule 25 as pt has a managed [place] plan. Pt verbalized understanding and agreed with plan of care and follow up. KSMITH APPRENTICE documented in this encounter Plan of Treatment Not on filedocumented as of this encounter Visit Diagnoses Diagnosis Health fpc, active care coordinati on - Primary documented in this encounter Care Teams Coach Professional Athletes Relationship Specialty Start Date End Date Anny Daily, ORDER TRACER, BUTCHER HEAD PCP - General Nurse Practitioner 03/20/18 [address] [place] [address] documented as of this encounter
--- OUTSIDE RECORDS SUMMARY | 2022-04-17 15:19 | XMS_ITS | Encounter Summary ---
:1980 Author Organization [facility] Address [address] [place] [address] Care Team Providers Name Role Phone Anny Daily APRN, CNP Primary Care Provider [phone] Reason for Visit Reason Comments Forms [facility] Encounter Details Date Type Department Care Team Description 08/07/2019 Telephone [facility] Anny Daily, Form s ([facility] [place] [facility] and [address] [address] [facility]) [place] [address] [place] [address] [phone] (Wo rk) Social History Tobacco Use Types [...] documented as of this encounter Nursing Notes Zoey Dillon LPN - 08/07/2019 12:02 PM CST We received forms for [facility] for RL to fill out. Anny hasn't seen her since 2014 and would like me to forward these to Dr. Yee in [facility] because he has seen her recently and has an upcoming appt with him on 08/20/19. I will forward these to Dr. Yee. ENT PRODUCTION SPECIALIST documented in this encounter Plan of Treatment Not on filedocumented as of this encounter Visit Diagnoses Not on filedocumented in this encounter Care Teams Kelp Cutter Relationship Specialty Start Date End Date Anny Daily, APARTMENT COORDINATOR, ASSEMBLING FABRICATOR PCP - General Nurse Practitioner 03/20/18 [address] [address] [place] [id number] documented as of this encounter
--- OUTSIDE RECORDS SUMMARY | 2022-04-17 15:19 | XMS_ITS | Encounter Summary ---
:1980 Author [facility] Address [address] [address] Care Team Providers Name Role Phone Radha Armendariz MD Primary Care Provider Reason for Visit Reason Comments Routine Visit Encounter Details Date Type Department Care Team Description 11/12/2017 Routine [facility] Steph Barron Routine Services-TRACK WALKER R, ASHU, JAVA FRONT END WEB DEVELOPER Visit [address], [address] [address] [phone] (Wo rk) Social History Tobacco Use Types Packs/Day Years Used Date Smoking Tobacco: Former Smokeless Tobacco: Never Alcohol Use Standard Drinks/Week Comments No 0 (1 standard drink = 0.6 oz pure alcoho l) Sex Assigned at Date Recorded Not on file documented as of this encounter Last Filed Vital Signs Vital Sign Reading Time Taken Comments Blood Pressure 113/61 11/12/2017 2:23 PM CDT Pulse 79 11/12/2017 2:23 PM CDT Temperature - - Respiratory Rate - - Oxygen Saturation - - Inhaled Oxygen Concentration - - Weight 126.2 kg (278 lb 3.2 oz) 11/12/2017 2:23 PM CDT Height - - Body Mass Index 41.08 05/28/2017 3:00 PM CDT documented in this encounter Progress Notes Steph Barron APRN, IMANI - 11/12/2017 2:30 PM CDT Presents with and daughter. Expresses concern that her son's movements do not feel as strongas they normally do. She is not sure if the movement is overall decreased, or not. I have ordered anNST for her to complete after today's visit. She does notice increased movement at the end of the day, when she is resting and has had a glass of juice. She denies contractions, leaking of fluid, or vaginal bleeding. She is feeling a little bit anxious about repairing for labor and introducing a new baby and to the family. She is questioning if she feels well-equipped for labor. I did inform her thatmany of the childbirth education classes in the community have a refresher course for 2nd time parents if that is something she would like to explore. We reviewed labor warning signs and monitoring for movement. She will return in 2 weeks for routine OB visit with a physician. GBS and bedside ultrasound at that appointment. Steph Barron APRN, CNP - 11/12/2017 2:30 PM CDT NST reactive. heart rate 135 bpm, moderate variability, multiple accelerations without decelerations. Patient invited to call with any future decreased movement concerns. documented in this encounter Plan of Treatment Not on filedocumented as of this encounter Visit Diagnoses Diagnosis Supervision of high-risk , thir d trimester - Primary Decreased movements in third trime ster, single or unspecified fetus documented in this encounter Care Teams Viticulture Teacher Relationship Specialty Start Date End Date Radha Armendariz MD PCP - General 05/04/16 03/19/18 [address] [place] [address] documented as of this encounter
--- OUTSIDE RECORDS SUMMARY | 2022-04-17 15:19 | XMS_ITS | Encounter Summary ---
:1980 Author Organization [facility] Address [address] [place] [address] Care Team Providers Name Role Phone Radha Armendariz MD Primary Care Provider Reason for Visit Reason Comments Routine Visit Encounter Details Date Type Department Care Team Description 12/07/2017 Routine [place] [facility] Henrik Washington R outine Services-DIE CUT OPERATOR Visit [address], [address] [address] [phone] Social History Tobacco Use Types Packs/Day Years Used Date Smoking Tobacco: Former Smokeless Tobacco: Never Alcohol Use Standard Drinks/Week Comments No 0 (1 standard drink = 0.6 oz pure alcoho l) Sex Assigned at Date Recorded Not on file documented as of this encounter Last Filed Vital Signs Vital Sign Reading Time Taken Comments Blood Pressure 100/48 12/07/2017 3:10 PM CDT Pulse 80 12/07/2017 2:52 PM CDT Temperature - - Respiratory Rate - - Oxygen Saturation - - Inhaled Oxygen Concentration - - Weight 127.6 kg (281 lb 6.4 oz) 12/07/2017 2:52 PM CDT Height - - Body Mass Index 41.56 05/28/2017 3:00 PM CDT documented in this encounter Progress Notes Henrik Washington P - 12/07/2017 2:50 PM CDT Pt having some mild CACERES, no visual changes, no RUQ pain. Mild UC's. DTRs-1+/4+. BP on left side recheck 100/48. [facility] BID, PTL/PROM precautions reviewed. RTC 1 week. documented in this encounter Plan of Treatment Not on filedocumented as of this encounter Visit Diagnoses Diagnosis Obesity affecting in third tri mester Previous gastric bypass affecting pregna ncy, antepartum documented in this encounter Care Teams Life Insurance Actuary Relationship Specialty Start Date End Date Radha Armendariz MD PCP - General 05/04/16 03/19/[address] [place] [id number] documented as of this encounter
--- OUTSIDE RECORDS SUMMARY | 2022-04-17 15:19 | XMS_ITS | Encounter Summary ---
:1980 Author [facility] Address [address] [place] [address] Care Team Providers Name Role Phone Radha Armendariz MD Primary Care Provider Encounter Details Date Type Department Care Team Description 10/12/2017 Notes/Orders [place] [facility] Henrik Washington, Previous gastric [address] [facility] [place] [address] [address] , antepartum [phone] (Primary Dx) [place] [address] Social History Tobacco Use Types Packs/Day Years Used Date Smoking Tobacco: Former Smokeless Tobacco: Never Alcohol Use Standard Drinks/Week Comments No 0 (1 standard drink = 0.6 oz pure alcoho l) Sex Assigned at Date Recorded Not on file documented as of this encounter Plan of Treatment Not on filedocumented as of this encounter Results Glucose (10/12/2017 10:51 AM TALENT ADVISOR) athologist Signature Lab Glucose 92 70 - 100 PN SOFT mg/dL Comment: The stated glucose range is for the fast ing state. Non-fasting glucose range is 70-180 mg/d L Specimen Anatomical Collection Method Collection Time Receive d Time (Source) Location / / Volume Laterality 10/12/2017 10:51 10/12/2017 AM TALENT ADVISOR 10:51 AM TALENT ADVISOR Narrative PN SOFT - 10/12/2017 11:07 AM TALENT ADVISOR Performed at [facility], [address] [place] [address] CLIA number [id number] Nathan Conteh MD LAB_1 Performing Organization Address City/State/ZIP Code Phon e Number PN SOFT [address] [place] [address] [phone] documented in this encounter Visit Diagnoses Diagnosis Previous gastric bypass complicating pre gnancy, antepartum Bariatric surgery status complicating pr egnancy, childbirth, or the puerperium, antepartum condition or complication Previous gastric bypass complicating pre gnancy, antepartum - Primary Bariatric surgery status complicating pr egnancy, childbirth, or the puerperium, antepartum condition or complication documented in this encounter Care Teams Monitor Tech Relationship Specialty Start Date End Date Radha Armendariz MD PCP - General 05/04/16 03/19/[address] [place] [address] documented as of this encounter
--- OUTSIDE RECORDS SUMMARY | 2022-04-17 15:19 | XMS_ITS | Encounter Summary ---
:1980 [facility] Address [address], [place] [address] Care Team Providers Name Role Phone Radha Armendariz MD Primary Care Provider Reason for Visit Reason Comments Routine Visit Encounter Details Date Type Department Care Team Description 12/18/2017 Routine [place] [facility] Francine Calderon R outine Services-PAY PER CLICK STRATEGIST ASHU, IMANI Visit [address] [address] [facility], [address] [place] [phone] Social History Tobacco Use Types Packs/Day Years Used Date Smoking Tobacco: Former Smokeless Tobacco: Never Alcohol Use Standard Drinks/Week Comments No 0 (1 standard drink = 0.6 oz pure alcoho l) Sex Assigned at Date Recorded Not on file documented as of this encounter Last Filed Vital Signs Vital Sign Reading Time Taken Comments Blood Pressure 124/73 12/18/2017 8:59 AM CDT Pulse 82 12/18/2017 8:59 AM CDT Temperature - - Respiratory Rate - - Oxygen Saturation - - Inhaled Oxygen Concentration - - Weight 128.5 kg (283 lb 6.4 oz) 12/18/2017 8:59 AM CDT Height - - Body Mass Index 41.85 05/28/2017 3:00 PM CDT documented in this encounter Progress Notes Francine Calderon, ASHU, STAFF WEAPONS OFFICER - 12/18/2017 4:04 PM CDT Positive yeast on affirm culture. Please advise patient to use Monistat seven- day treatment [id number]. MS???STAFF WEAPONS OFFICER Francine Calderon APRN, CNP - 12/18/2017 9:00 AM CDT and preschool daughter at appointment. 12-13 patient was exposed to strep and pneumonia in the home. States her mother lives with them and she is immunosuppressed. She was treated for a cough with antibiotics. Her daughter was diagnosed and treated for strep. Patient followed up with her primary care physician. Treated prophylactically with an antibiotic. Patient tested negative for strep. Sheplans to stop the antibiotics now. She has a small cough. No fever. Naxx-jzq-ifncoqo cold medicationhandouts given. Noticing vaginal irritation. Unsure if she has a yeast infection. No self treatments. More contractions at night. No LOF or bleeding. +FM. On exam: Genitourinary: Lymphatic: No groin lymphadenopathy. External genitalia: normal without lesions Vagina: normal appearing vaginal epithelium. Small, thin, yellow discharge. No odor or lesions. Affirm culture. Cervix: No CMT, normal appearance. No discharge or lesions. Urethra: Nontender, no discharge Bladder: Nontender, no palpable masses Anus: normal, no hemorrhoids. Rectal: deferred No treatment for vaginal symptoms pending affirm culture. RTC 1 wk apt. MS-STAFF WEAPONS OFFICER documented in this encounter Plan of Treatment Not on filedocumented as of this encounter Procedures Procedure Name Priority Date/Time Associated Diagnosis Comme nts VAGINITIS PANEL, Routine 12/18/2017 9:28 AM Vaginal irritation Results for this DNA PROBE CDT procedure are i n the results section. documented in this encounter Results (ABNORMAL) Vaginitis Panel, DNA Probe (12/18/2017 9:28 AM CDT) [facility] Method Time Signature Trichomonas Not Detected Not Detected PN SOFT vaginalis Gardnerella Not Detected Not Detected PN SOFT vaginalis Angela species Detected (A) Not Detected PN SOFT Specimen Anatomical Collection Method Collection Time Receive d Time (Source) Location / / Volume Laterality 12/18/2017 9:28 AM 8 CDT 11:43 AM CDT Narrative PN SOFT - 12/18/2017 3:37 PM CDT Performed at [facility], [address] [facility], [place] [address] CLIA number [id number] Francine Calderon TILLER WORKER, STAFF WEAPONS OFFICER LAB_1 Performing Organization Address City/State/ZIP Code Phon e Number PN SOFT [address] [place] [address] documented in this encounter Visit Diagnoses Diagnosis Elderly primigravida in third trimester - Primary Vaginal irritation Unspecified noninflammatory disorder of vagina documented in this encounter Care Teams Molecular Geneticist Relationship Specialty Start Date End Date Radha Armendariz MD PCP - General 05/04/16 03/19/18 [address] [facility] [facility] [place] [id number] documented as of this encounter
--- OUTSIDE RECORDS SUMMARY | 2022-04-17 15:19 | XMS_ITS | Encounter Summary ---
:1980 Author Organization [facility] Address [address] [place] [address] Care Team Providers Name Role Phone Anny Daily APRN, WIND TUNNEL MECHANIC Primary Care Provider Reason for Visit Reason Comments CHEST PAIN Encounter Details Date Type Department Care Team Description 03/21/2018 Nurse Triage [place] [facility] Anny Daily, ASHU , CHEST PAIN Medicine WIND TUNNEL MECHANIC [address] [address] [address] [place] [address] [phone] (Wo rk) Social History Tobacco Use Types Packs/Day Years Used Date Smoking Tobacco: Former Smokeless Tobacco: Never Alcohol Use Standard Drinks/Week Comments No 0 (1 standard drink = 0.6 oz pure alcoho l) Sex Assigned at Date Recorded Not on file documented as of this encounter Nursing Notes Liliana Nguyễn RN - 03/21/2018 3:56 PM CDT Reason for Disposition ??? Chest pain lasting longer than 5 minutes Protocols used: CHEST [id number] Spoke with pt. She was drinking on 03/18 she developed palpitations of 03/19 along with chest pressure/tightness. 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 The palpitations resolved still having chest pressure. She denies radiating pain, breathing difficulty. Problem list reviewed as related to this call. Pt will go to the ER. documented in this encounter Plan of Treatment Not on filedocumented as of this encounter Visit Diagnoses Not on filedocumented in this encounter Care Teams Car Changer Relationship Specialty Start Date End Date Anny Daily APRN, WIND TUNNEL MECHANIC PCP - General Nurse Practitioner 03/20/[address] [place] [address] documented as of this encounter
--- OUTSIDE RECORDS SUMMARY | 2022-04-17 15:19 | XMS_ITS | Encounter Summary ---
:1980 [facility] Address [address] [place] [address] Care Team Providers Name Role Phone Radha Armendariz MD Primary Care Provider Reason for Visit Procedure/Equipment (Routine) - Incomplete Specialty Diagnoses / Procedures Referred By Contact Refer red To Contact Diagnoses Previous gastric bypass affecting , antepartum Obesity affecting in third trimester Henrik Washington MD Procedures US OB Follow-Up For Growth Single (Includes KATTY) [address] [place] [address] Referral ID Status Reason Start Date Expiration Date Visits V isits Requested Authorized [id number] Incomplete 10/12/2017 01/11/2019 10 10 Encounter Details Date Type Department Care Team Description 11/22/2017 Imaging [place] [facility] Henrik Washington MD Previous gastric bypass affecting pregna ncy, antepartum; [address] Obesity affecting [place] third [place] [address] [address] [place], [place] [address] (Wo rk) Social History Tobacco Use Types [...] Date/Time Associated Diagnosis Comme nts US OB FOLLOW-UP FOR Routine 11/22/2017 6:10 PM Previous gastri c Results for this GROWTH SINGLE CDT bypass affecting procedure are in (INCLUDES KATTY) , the results antepartum section. Obesity affecting in third trimester documented in this encounter Results US OB Follow-Up For Growth Single (Includes KATTY) (11/22/2017 6:10 PM CDT) Anatomical Region Laterality Modality Pelvis Ultrasound Specimen (Source) Anatomical Collection Method Collection Time Re ceived Time Location / / Volume Laterality 11/22/2017 5:32 PM CDT Impressions 11/22/2017 6:14 PM CDT IMPRESSION: 1. Single living intrauterine gestation with estimated weight of 3038 g which is 73.5% for gestational age. Abdominal circumference is 72.8% for gestational age. 2. Head circumference to abdominal circu mference ratio is above the normal limit. Narrative 11/22/2017 6:14 PM CDT CLINICAL HISTORY: ??Obese COMPARISON: ??10/11/2017 FINDINGS: ??A follow-up OB ultrasound wa s performed. ??Transabdominal ??imaging was performed. Type of Gestation: ??Douglas. Presentation: ??VERTEX Movement Present: ??Yes Cardiac Rate: ??133 bpm and is regular 4-quadrant KATTY: 17.0 cm. Normal. Q1: 1.8 cm. Q2: 5.7 cm. Q3: 5.5 cm. Q4: 4.0 cm. Placental Position: ANTERIOR. Normal. Cervix Length (cm): ??Not assessed LIMITED ANATOMIC SURVEY RESULTS: ??No fo tre abnormality. The limited anatomic survey includes ass essment of: ??Heart: 4 Chamber View, M- Mode, Bladder, Stomach, Kidneys. Measurements (Source [place]): BPD: ??9.6 cm = 39w0d HC: 34.8 cm = 40w3d AC: ??32.5 cm = 36w3d FL: ??6.8 cm = 35w1d Anatomic Ratios: ??Head circumference to abdominal circumference ratio is 1.07, above the normal limit of 0.92-1.05 Abdominal Circumference Percentile: 72.8 % Estimated Weight: ??3038 grams Weight Percentile: 73.5% Other Findings: None. GA by LMP: ??34w6d GA by Prior US: ??36w0d GA by today's US: ??37w0d FAHAD by today's US: ??12/13/2017 Procedure Note Salvador Pablo MD - 11/22/2017 CLINICAL HISTORY: Obese COMPARISON: 10/11/2017 FINDINGS: A follow-up OB ultrasound was performed. Transabdominal imaging was performed. Type of Gestation: Douglas. Presentation: VERTEX Movement Present: Yes Cardiac Rate: 133 bpm and is regular 4-quadrant KATTY: 17.0 cm. Normal. Q1: 1.8 cm. Q2: 5.7 cm. Q3: 5.5 cm. Q4: 4.0 cm. Placental Position: ANTERIOR. Normal. Cervix Length (cm): Not assessed LIMITED ANATOMIC SURVEY RESULTS: No foca l abnormality. The limited anatomic survey includes ass essment of: Heart: 4 Chamber View, M- Mode, Bladder, Stomach, Kidneys. Measurements (Source [place]lock): BPD: 9.6 cm = 39w0d HC: 34.8 cm = 40w3d AC: 32.5 cm = 36w3d FL: 6.8 cm = 35w1d Anatomic Ratios: Head circumference to a bdominal circumference ratio is 1.07, above the normal limit of 0.92-1.05 Abdominal Circumference Percentile: 72.8 % Estimated Weight: 3038 grams Weight Percentile: 73.5% Other Findings: None. GA by LMP: 34w6d GA by Prior US: 36w0d GA by today's US: 37w0d FAHAD by today's US: 12/13/2017 IMPRESSION IMPRESSION: 1. Single living intrauterine gestation with estimated weight of 3038 g which is 73.5% for gestational age. Abdominal circumference is 72.8% for gestational age. 2. Head circumference to abdominal circu mference ratio is above the normal limit. Henrik Washington MD [facility] documented in this encounter Visit Diagnoses Diagnosis Previous gastric bypass affecting pregna ncy, antepartum Obesity affecting in third tri [facility] documented in this encounter Care Teams Sizing Sponger Relationship Specialty Start Date End Date Radha Armendariz MD PCP - General 05/04/16 03/19/[address] [place] [address] documented as of this encounter
--- OUTSIDE RECORDS SUMMARY | 2022-04-17 15:19 | XMS_ITS | Encounter Summary ---
:1980 Author Organization [facility] Address [address] [place] [address] Care Team Providers Name Role Phone Anny Daily APRN, AIR ROUTE TRAFFIC CONTROLLER Primary Care Provider [phone] Reason for Visit Reason Comments ABDOMINAL PAIN Encounter Details Date Type Department Care Team Description 04/13/2019 Nurse Triage [place] [facility] Anny Daily, ASHU , ABDOMINAL PAIN Medicine [facility] [address] [address] [place] [address] [phone] (Wo rk) Social History Tobacco Use Types [...] file documented as of this encounter Nursing Lottie Mcdermott RN - 04/13/2019 5:02 PM CDT Reason for Disposition ??? MILD-MODERATE diarrhea (e.g., 1-6 times / day more than normal) Additional Information ? ? Negative: [1] SEVERE abdominal pain (e.g., excruciating) AND [2] present > 1 hour ? ? Negative: [1] SEVERE diarrhea (e.g., 7 or more times / day more than normal) AND [2] age > 60years ? ? Negative: [1] Constant abdominal pain AND [2] present > 2 hours Protocols used: [id number] Patient calling and transferred to PN via ER line. Complaining of diarrhea starting on Sunday morning and still has today. States she started with 5-7 loose stools on Sunday and today having less than that. States she has cramping on and off. At times rates her cramps a 9 on scale but states that isonly a few seconds. Denies fever, vomiting, constant pain, passing blood. PNNl advised home care advice for now. If not improving or worsening, may need to be seen. Agrees with plan. Will call back with other questions or concerns. Problem list reviewed as related to this call. documented in this encounter Plan of Treatment Not on filedocumented as of this encounter Visit Diagnoses Not on filedocumented in this encounter Care Teams Therapy Assistant Relationship Specialty Start Date End Date Anny Daily APRN, AIR ROUTE TRAFFIC CONTROLLER PCP - General Nurse Practitioner 03/20/18 [address] [id number] documented as of this encounter
--- OUTSIDE RECORDS SUMMARY | 2022-04-17 15:19 | XMS_ITS | Encounter Summary ---
:1980 Author Organization [facility] Address [address] [place] [address] Care Team Providers Name Role Phone Rdaha Armendariz MD Primary Care Provider Reason for Visit Reason Comments CHILLS Encounter Details Date Type Department Care Team Description 12/13/2017 Hospital Encounter [facility] Doni Ayala S tre throat exposure; Care MD Wilfredo Parrishs [address] [phone] [phone] Social History Tobacco Use Types Packs/Day Years Used Date Smoking Tobacco: Former Smokeless Tobacco: Never Alcohol Use Standard Drinks/Week Comments No 0 (1 standard drink = 0.6 oz pure alcoho l) Sex Assigned at Date Recorded Not on file documented as of this encounter Last Filed Vital Signs Vital Sign Reading Time Taken Comments Blood Pressure 128/76 12/13/2017 12:28 PM CDT Pulse 78 12/13/2017 12:28 PM CDT Temperature 36.7 ??C (98 ??F) 12/13/2017 12:28 PM CDT Respiratory Rate 18 12/13/2017 12:28 PM CDT Oxygen Saturation 99% 12/13/2017 12:28 PM CDT Inhaled Oxygen Concentration - - Weight - - Height - - Body Mass Index - - documented in this encounter Medications at Time of Discharge Medication Sig Dispensed Refills Start Date End Date B Complex Vitamins (B 0 COMPLEX-B12 TR OR) Iron, Ferrous Gluconate, 1 Tab. 0 256 (28 FE) MG TABS 27-0.8 MG tablet Take 1 Tab by mouth. 0 Vitamin D, 800 Units. 0 Cholecalciferol, 400 units CAPS amoxicillin (AMOXIL) 500 Take 1 Cap by mouth 20 Cap 0 12/23/2017 MG capsule two times a day for 10 days. iron Take 1 Cap by mouth 0 07/12 polysaccharides-cyanocoba daily. duke-folic acid (AKA FERREX 150 FORTE) 150-0.025-1 MG valACYclovir (VALTREX) 1 TAKE 2 TABLETS 1 017 07/12/2018 G tablet (2,000 MG TOTAL) BY MOUTH 2 (TWO) TIMES A DAY FOR 1 DAY. TAKE 12 HOURS APART documented as of this encounter ED Notes Doni Ayala MD - 12/13/2017 12:00 PM CDT NAME: LENNIE RODNEY MR#: [id number] CSN: [id number] AUTHENTICATING CLINICIAN: Doni Ayala MD CONFIRM #: [id number] LOC: 520 URGENT CARE PROGRESS NOTE DATE OF VISIT: 12/13/2017 : 1980 SUBJECTIVE: Patient is a 37-year-old female who is here 1 week out from delivering her baby. She said that her daughter, who is 2 years old, was diagnosed with strep today. Last night, Lennie felt a bit lightheaded, although that is gone and she just had a slight cough producing a little phlegm and sinuses feel full today, and she feels that she had some chills last night, but no fever and the chills are gone. She currently denies sore throat and denies myalgias, vomiting, diarrhea or fever, or abdominal pain. She has not had Tylenol today and she does have an OB visit tomorrow. SOCIAL HISTORY: Besides exposure to her child, she is not aware of any other exposures to infection. FURTHER HISTORY/ALLERGIES: Includes reaction to adhesives. HOME MEDICATIONS: Otherwise as listed. OBJECTIVE: VITALS: On exam, stable. Pulse 78, respirations 18. O2 sat 99%. HEENT: Throat may have been slightly red with slightly swollen glands, but no exudates are noted. Ears did show a little serous fluid on the left. I personally did a strep screen, which is reported back as negative, so I added an overnight culture NECK: Moves well. LUNGS: Clear. ABDOMEN: Gravid, but nontender. Homans' sign was negative. EXTREMITIES: Also look normal. We talked about other testing at that time and she did want flu testing. We talked about the test wewould send off to the hospital versus the less sensitive, but quicker test here, and she would like the quick test here, understanding the fact that it is not as sensitive as the overnight test at the hospital; that test was negative. She did not want CBC testing, empiric flu treatment or other testing here today, but again, overnight throat culture is pending. ASSESSMENT: 1. Chills last night with #2. 2. Strep throat exposure. PLAN: We talked about waiting for the overnight test and if that was negative and she had persistent symptoms, that we would do a repeat test in 2-3 days given this test was done within the 24 hours of the onset of her symptoms. She actually wants to be treated for strep exposure with Amoxil 500 b.i.d. x10 days. We did discuss that we are not compelled to treat this and certainly, there are risks of takingantibiotics which we discussed. Nonetheless, she would like treatment because of the strep exposure,understanding and accepting those risks. We therefore placed her on amoxicillin 500 b.i.d. for 10 days and had her observe appropriate quarantine as if she would have strep throat. If the overnight test is positive, she will finish the antibiotics off as a repeat test in 3 days, then could not be reliable because she is already on antibiotics. She will follow up with her FILLER MIXER, tomorrow and then obviously be seen right away by us if any worsening or new symptoms or problems, or otherwise if not quickly resolving with these symptoms, to recheck as well. She understands and agrees to the above and the above followups. ERIKAL:SAMIRA C: CONFIRM #: [id number] documented in this encounter Plan of Treatment Not on filedocumented as of this encounter Procedures Procedure Name Priority Date/Time Associated Diagnosis Comme nts INFLUENZA VIRUS STAT 12/13/2017 1:02 PM Chills Result s for this RAPID ANTIGEN CDT procedure are in the results section. BETA STREP RESP STAT 12/13/2017 12:52 PM Strep throat Resul ts for this CULT CDT exposure procedure are i n the results section. GROUP A STREP STAT 12/13/2017 12:51 PM Strep throat Results for this ANTIGEN SCREEN CDT exposure procedure are in the results section. documented in this encounter Results Influenza Virus Rapid Antigen (12/13/2017 1:02 PM CDT) athologist Signature Influenza A Negative Negative PN SOFT Antigen Influenza B Negative Negative PN SOFT Antigen Influenza Nasal PN SOFT Source Specimen Anatomical Collection Method Collection Time Receive d Time (Source) Location / / Volume Laterality 12/13/2017 1:02 PM 8 1:08 CDT PM CDT Narrative PN SOFT - 12/13/2017 1:23 PM CDT Performed at [facility], [address] [place] [address] CLIA number [id number] Doni Ayala MD LAB_1 Performing Organization Address City/[facility]/ZIP [facility] Phon e Number PN SOFT [address] [place] [address] Beta Strep Resp Cult (12/13/2017 12:52 PM CDT) [facility] Method Time Signature Source Throat PN SOFT Site PN SOFT Strep Screen No Group A 12/15/2017 PN SOFT Streptococcus 6:04 AM CDT Isolated Specimen (Source) Anatomical Collection Method Collection Time Re ceived Time Location / / Volume Laterality Throat: 12/13/2017 12:52 PM CDT Narrative PN SOFT - 12/15/2017 6:04 AM CDT Performed at [address] [place] [address], CLIA Number [id number] Doni Ayala MD LAB_1 Performing Organization Address City/[facility]/ZIP Code Phon e Number PN SOFT [address] [place] [address] Rapid Strep Group A Waived (12/13/2017 12:51 PM CDT) athologist Signature Strep A Negative Negative PN SOFT Antigen Strep A Source THROA: PN SOFT Specimen Anatomical Collection Method Collection Time Receive d Time (Source) Location / / Volume Laterality 12/13/2017 12:51 12/13/2017 3:35 PM CDT PM CDT Narrative PN SOFT - 12/13/2017 3:38 PM CDT Performed at [facility], [address] [facility], [place] [address] CLIA number [id number] Doni Ayala MD LAB_1 Performing Organization Address City/State/ZIP Code Phon e Number PN SOFT [address] [place] [address] [phone] documented in this encounter Visit Diagnoses Diagnosis Strep throat exposure Contact with or exposure to other commun icable diseases Chills Chills (without fever) Triage Assessment Note - Latricia Sanz RN - 12/13/2017 12:25 PM CDT Per patient, she is due to deliver her baby in 1 week. Daughter was diagnosed with strep today. Patient states she feels weird in the head and has started to develop a cough and had chills but no fever. Denies sore throat documented in this encounter Care Teams Plant Hr Manager Relationship Specialty Start Date End Date Radha Armendariz MD PCP - General 05/04/16 03/19/[address] [place] [address] documented as of this encounter
--- OUTSIDE RECORDS SUMMARY | 2022-04-17 15:20 | XMS_ITS | Encounter Summary ---
:1980 Author Organization [employer] [facility] [employer] Address [address] [place] [address] Care Team Providers Name Role Phone Radha Armendariz MD Primary Care Provider Reason for Visit Reason Onset Date Comments LAB RESULTS 06/18/2017 Encounter Details Date Type Department Care Team Description 06/18/2017 Telephone Specialty Center [address] Shanon Ramirez, LAB RESULTS Maternal Medic ine [facility] [address] [facility] [address] [place] [address] [place], [place] [id number] Social History Tobacco Use Types Packs/Day Years Used Date Smoking Tobacco: Former Smokeless Tobacco: Never Alcohol Use Standard Drinks/Week Comments No 0 (1 standard drink = 0.6 oz pure alcoho l) Sex Assigned at Date Recorded Not on file documented as of this encounter Nursing Notes Darlene Ramirez CGC - 06/18/2017 1:24 PM CDT Contacted pt with results of NIPT which are normal, suggesting that the baby does NOT have an extra chromosome 13, 18 or 21. Patient wanted to know gender and this was relayed to her. This will be verified by the level 2 ultrasound. She denied further questions. Copy of result sent to [employer]. documented in this encounter Plan of Treatment Not on filedocumented as of this encounter Visit Diagnoses Not on filedocumented in this encounter Care Teams Checker Stocker Relationship Specialty Start Date End Date Radha Armendariz MD PCP - General 05/04/16 03/19/[address] [place] [address] documented as of this encounter
--- OUTSIDE RECORDS SUMMARY | 2022-04-17 15:20 | XMS_ITS | Encounter Summary ---
:1980 Author Organization [facility] Address [address] [place] [address] Care Team Providers Name Role Phone Radha Armendariz MD Primary Care Provider Reason for Referral Procedure/Equipment (Routine) - Incomplete Specialty Diagnoses / Procedures Referred By Contact Refer red To Contact Diagnoses Previous gastric bypass affecting , antepartum Obesity affecting in third trimester Henrik Washington MD Procedures US OB Follow-Up For Growth Single (Includes KATTY) [address] [facility] [address] [place] [address] Referral ID Status Reason Start Date Expiration Date Visits V isits Requested Authorized [id number] Incomplete 10/12/2017 01/11/2019 10 10 ENGINE OPERATOR Reason for Visit Reason Comments Routine Visit Encounter Details Date Type Department Care Team Description 10/12/2017 Routine [facility] Henrik Washington [facility]SIZE MIXER Visit [address] [place] [address] [facility] [address] [place] [address] Social History Tobacco Use Types Packs/Day Years Used Date Smoking Tobacco: Former Smokeless Tobacco: Never Alcohol Use Standard Drinks/Week Comments No 0 (1 standard drink = 0.6 oz pure alcoho l) Sex Assigned at Date Recorded Not on file documented as of this encounter Last Filed Vital Signs Vital Sign Reading Time Taken Comments Blood Pressure 119/70 10/12/2017 1:58 PM DECK ENGINE OPERATOR Pulse 87 10/12/2017 1:58 PM DECK ENGINE OPERATOR Temperature - - Respiratory Rate - - Oxygen Saturation - - Inhaled Oxygen Concentration - - Weight 122.5 kg (270 lb) 10/12/2017 1:58 PM DECK ENGINE OPERATOR Height - - Body Mass Index 39.87 05/28/2017 3:00 PM CDT documented in this encounter Progress Notes Henrik Washington - 10/12/2017 1:50 PM CST No c/o's. Had normal FBS and 2hr PP. Rest of bariatric labs normal, except Fe and A1C pending. Today's U/S showed EFW 1504 g (50-75%), KATTY 16.7. Repeat U/S for EFW, KATTY in 6 weeks. [facility] BID, PTL/PROM precautions reviewed. RTC 2 weeks. ENGINE OPERATOR documented in this encounter Plan of Treatment Not on filedocumented as of this encounter Results US OB Follow-Up For [...] above the normal limit. Henrik Washington MD [facility] documented in this encounter Visit Diagnoses Diagnosis Previous gastric bypass affecting pregna ncy, antepartum - Primary Elderly primigravida in third trimester Obesity affecting in third tri mester Previous gastric bypass affecting pregna ncy, antepartum Obesity affecting in third tri mester documented in this encounter Care Teams Tipple Repairer Relationship Specialty Start Date End Date Radha Armendariz MD PCP - General 05/04/16 03/19/[address] [place], [place] [address] documented as of this encounter
--- OUTSIDE RECORDS SUMMARY | 2022-04-17 15:20 | XMS_ITS | Encounter Summary ---
:1980 Author Organization [facility] Address [address] [address] Care Team Providers Name Role Phone Radha Armendariz MD Primary Care Provider Reason for Visit Reason Comments Routine Visit Encounter Details Date Type Department Care Team Description 07/18/2017 Routine [facility] Steph Barron Routine Services-COMPENSATION AND HRIS ANALYST R, GYN, O AND M SUPERVISOR Visit [address], [address] [address] [phone] (Wo rk) Social History Tobacco Use Types Packs/Day Years Used Date Smoking Tobacco: Former Smokeless Tobacco: Never Alcohol Use Standard Drinks/Week Comments No 0 (1 standard drink = 0.6 oz pure alcoho l) Sex Assigned at Date Recorded Not on file documented as of this encounter Last Filed Vital Signs Vital Sign Reading Time Taken Comments Blood Pressure 109/53 07/18/2017 2:55 PM BRAKE MACHINE OPERATOR Pulse 66 07/18/2017 2:55 PM BRAKE MACHINE OPERATOR Temperature - - Respiratory Rate - - Oxygen Saturation - - Inhaled Oxygen Concentration - - Weight 116 kg (255 lb 12.8 oz) 07/18/2017 2:55 PM BRAKE MACHINE OPERATOR Height - - Body Mass Index 37.78 05/28/2017 3:00 PM CDT documented in this encounter Progress Notes Steph Barron APRN, O AND M SUPERVISOR - 07/18/2017 3:00 PM CST Doing well. Denies concerns or questions. Noticing FM. Denies pelvic pain, VB, or LOF. MSAFP today. L2 US scheduled. RTC 4 weeks for MD visit. E MACHINE OPERATOR documented in this encounter Plan of Treatment Not on filedocumented as of this encounter Results MAFP Questions (07/18/2017 3:27 PM BRAKE MACHINE OPERATOR) [facility] gist Method Time Signature Maternal Weight 255 lbs PN SOFT Type Of Single PN SOFT Race Non-Black PN SOFT Insulin No PN SOFT Dependent Diabetic? Family History No PN SOFT Of Neural Tube Disorders Smoker? No PN SOFT Gestational Age 17w6d PN SOFT Comment: 17 weeks 6 days by U/S (13w5d o n 06/19/17) Ultrasound Date 20,171,017 PN SOFT ULTRASOUND WEEKS GEST 13 Weeks PN SOFT ULTRASOUND DAYS 5 Days PN SOFT Last Menstrual Period Date 20,170,721 PN SOFT EST DATE OF DELIVERY 20,180,419 PN SOFT Specimen Anatomical Collection Method Collection Time Receive d Time (Source) Location / / Volume Laterality 07/18/2017 3:27 PM 7 6:38 BRAKE MACHINE OPERATOR PM BRAKE MACHINE OPERATOR Narrative PN SOFT - 07/20/2017 12:23 PM BRAKE MACHINE OPERATOR Performed at [facility] [place] [address] CLIA number [id number] Steph Barron APRN, CNP LAB_1 Performing Organization Address City/State/ZIP Code Phon e Number PN SOFT [address] [place] [phone] Maternal Screen AFP (07/18/2017 3:27 PM BRAKE MACHINE OPERATOR) Analysis Performed At [facility] logist Time Signature AFP, Maternal 31.9 ng/mL PN SOFT MoM For AFP 1.09 PN SOFT AFP, MoM see below PN SOFT Cutoff Int Comment: Maternal AFP MoM Reference Rang e = 0.20 - 2.50 Risk Assessment See Note PN SOFT Comment: Risk of OSB: The risk based on AFP and family history is 1:9830. (The population risk is less than 1:1000). MAFP Interpretation see below PN SOFT Comment: The maternal serum AFP result is NOT elzbieta vated for a of this gestational age. The risk of an open neural tube defect is less than the screening cut-of f. Interpretation See Note PN SOFT Comment: Screen NEGATIVE for Open Spina Bifida. Specimen Anatomical Collection Method Collection Time Receive d Time (Source) Location / / Volume Laterality 07/18/2017 3:27 PM 7 6:38 BRAKE MACHINE OPERATOR PM BRAKE MACHINE OPERATOR Narrative PN SOFT - 07/20/2017 12:23 PM BRAKE MACHINE OPERATOR Performed at [facility], [address] [place] [address] CLIA number [id number] Steph Barron APRN, O AND M SUPERVISOR LAB_1 Performing Organization Address City/State/ZIP Code Phon e Number SOFT [address] [place] [address] [phone] documented in this encounter Visit Diagnoses Diagnosis Elderly multigravida in second trimester - Primary Elderly multigravida in second trimester documented in this encounter Care Teams Examining Chair Assembler Relationship Specialty Start Date End Date Radha Armendariz MD PCP - General 05/04/16 03/19/[address] [place], [place] [address] documented as of this encounter
--- OUTSIDE RECORDS SUMMARY | 2022-04-17 15:20 | XMS_ITS | Encounter Summary ---
:1980 Author Organization [facility] Address [address] [address] Care Team Providers Name Role Phone Radha Armendariz MD Primary Care Provider Encounter Details Date Type Department Care Team Description 06/19/2017 Lab Visit [facility] Previous gastric bypass Services[facility] affecting , [address] [place] [address], [address] [place] [address] Social History Tobacco Use Types Packs/Day Years Used Date Smoking Tobacco: Former Smokeless Tobacco: Never Alcohol Use Standard Drinks/Week Comments No 0 (1 standard drink = 0.6 oz pure alcoho l) Sex Assigned at Date Recorded Not on file documented as of this encounter Plan of Treatment Not on filedocumented as of this encounter Procedures Procedure Name Priority Date/Time Associated Comments Diagnosis HOMOCYSTEINE Routine 06/19/2017 2:57 PM Previous gastric Resul ts for this CDT bypass affecting procedure a re in , the results antepartum section. IRON (NO IBC OR SAT) Routine 06/19/2017 2:57 PM Previous gastr ic Results for this CDT bypass affecting procedure a re in , the results antepartum section. FOLATE ONLY (4HR FAST Routine 06/19/2017 2:57 PM Previous addi divine Results for this RECOMMENDED) CDT bypass affecting procedure a re in , the results antepartum section. VITAMIN B12 ONLY Routine 06/19/2017 2:57 PM Previous gastric R esults for this CDT bypass affecting procedure a re in , the results antepartum section. CALCIUM Routine 06/19/2017 2:57 PM Previous gastric Resul ts for this CDT bypass affecting procedure a re in , the results antepartum section. documented in this encounter Results Calcium (06/19/2017 2:57 PM CDT) athologist [facility] Calcium 9.2 8.4 - 10.2 PN SOFT mg/dL Specimen Anatomical Collection Method Collection Time Receive d Time (Source) Location / / Volume Laterality 06/19/2017 2:57 PM 7 5:08 CDT PM CDT Narrative PN SOFT - 06/19/2017 5:40 PM CDT Performed at [facility], [address] [place] [address] CLIA number [id number] Henrik Washington MD LAB_1 Performing Organization Address [facility] Phon e Number PN SOFT [address] [place] [address] Homocysteine (06/19/2017 2:57 PM CDT) athologist [facility] Homocysteine 5.0 5.0 - 15.4 PN SOFT Plasma umol/L Specimen Anatomical Collection Method Collection Time Receive d Time (Source) Location / / Volume Laterality 06/19/2017 2:57 PM 7 6:30 CDT PM CDT Narrative PN SOFT - 06/19/2017 9:45 PM CDT Performed at [facility] [address] [place] [address] CLIA number [id number] Henrik Washington MD LAB_1 Performing Organization Address City/[facility] Phon e Number PN SOFT [address] [place] [address] (ABNORMAL) Iron (no IBC or Sat) (06/19/2017 2:57 PM CDT) athologist [facility] Iron, Serum 30 (L) 50 - 170 PN SOFT ug/dL Specimen Anatomical Collection Method Collection Time Receive d Time (Source) Location / / Volume Laterality 06/19/2017 2:57 PM 7 6:42 CDT PM CDT Narrative PN SOFT - 06/19/2017 7:20 PM CDT Performed at [address] [address] CLIA number [id number] Henrik Washington MD LAB_1 Performing Organization Address [facility] Phon e Number PN SOFT [address] [place] [address] B12 Only (06/19/2017 2:57 PM CDT) athologist Signature Vitamin B12 703 213 - 816 PN SOFT pg/dL Specimen Anatomical Collection Method Collection Time Receive d Time (Source) Location / / Volume Laterality 06/19/2017 2:57 PM 7 6:42 CDT PM CDT Narrative PN SOFT - 06/19/2017 8:02 PM CDT Performed at [address] [address] CLIA number [id number] Henrik Washington MD LAB_1 Performing Organization Address [facility] Phon e Number PN SOFT [address] [place] [address] Serum Folate (06/19/2017 2:57 PM CDT) athologist Signature Serum Folate 16.9 7.0 - PN SOFT 9,999.9 ng/mL Specimen Anatomical Collection Method Collection Time Receive d Time (Source) Location / / Volume Laterality 06/19/2017 2:57 PM 7 6:32 CDT PM CDT Narrative PN SOFT - 06/19/2017 7:40 PM CDT Performed at [address] [address] CLIA number [id number] Henrik Washington MD LAB_1 Performing Organization Address [facility] Phon e Number PN SOFT [address] [place] [address] documented in this encounter Visit Diagnoses Diagnosis Previous gastric bypass affecting pregna ncy, antepartum documented in this encounter Care Teams Solid Waste Collector Relationship Specialty Start Date End Date Radha Armendariz MD PCP - General 05/04/16 03/19/[address] [place] [address] [address] documented as of this encounter
--- OUTSIDE RECORDS SUMMARY | 2022-04-17 15:20 | XMS_ITS | Encounter Summary ---
:1980 Author Organization [facility] Address [address] [place] [address] Care Team Providers Name Role Phone Radha Armendariz MD Primary Care Provider Reason for Referral Procedure/Equipment (Routine) - Incomplete Specialty Diagnoses / Procedures Referred By Contact Refer red To Contact Diagnoses Previous gastric bypass affecting , antepartum Obesity affecting in third trimester Henrik Washington MD Procedures US OB Follow-Up For Growth [facility] (Includes KATTY) [address] [facility] [address] [place] [address] Referral ID Status Reason Start Date Expiration Date Visits V isits Requested Authorized [id number] Incomplete 09/28/2017 12/28/2018 10 10 LE ERP DEVELOPER Reason for Visit Reason Comments Routine Visit Encounter Details Date Type Department Care Team Description 09/28/2017 Routine [facility]PHARMACIST AIDE Visit [address] [facility], [address] [place] [address] Social History Tobacco Use Types Packs/Day Years Used Date Smoking Tobacco: Former Smokeless Tobacco: Never Alcohol Use Standard Drinks/Week Comments No 0 (1 standard drink = 0.6 oz pure alcoho l) Sex Assigned at Date Recorded Not on file documented as of this encounter Last Filed Vital Signs Vital Sign Reading Time Taken Comments Blood Pressure 117/64 09/28/2017 3:06 PM ORACLE ERP DEVELOPER Pulse 83 09/28/2017 3:06 PM ORACLE ERP DEVELOPER Temperature - - Respiratory Rate - - Oxygen Saturation - - Inhaled Oxygen Concentration - - Weight 121.7 kg (268 lb 6.4 oz) 09/28/2017 3:06 PM ORACLE ERP DEVELOPER Height - - Body Mass Index 39.64 05/28/2017 3:00 PM CDT documented in this encounter Progress Notes Henrik Washington - 09/28/2017 2:50 PM CST No c/o's. Needs to avoid 1hr glucola due to dumping syndrome. Will do FBS and 2hr PP glucose, and add bariatric labs as well. Will do TDaP today. Also get U/S for EFW, KATTY at next visit. RTC 2 weeks. PTL/PROM precautions reviewed. LE ERP DEVELOPER documented in this encounter Plan of Treatment Not on filedocumented as of this encounter Results Treponema Screen (10/12/2017 8:44 AM ORACLE ERP DEVELOPER) [facility] Method Time Signature Treponema Non Reactive Non Reactive PN SOFT Screen Specimen Anatomical Collection Method Collection Time Receive d Time (Source) Location / / Volume Laterality 10/12/2017 8:44 AM 8 ORACLE ERP DEVELOPER 12:52 PM ORACLE ERP DEVELOPER Narrative PN SOFT - 10/12/2017 2:01 PM ORACLE ERP DEVELOPER Performed at [address] [address] CLIA number [id number] Henrik Washington MD LAB_1 Performing Organization Address City/State/ZIP Code Phon e Number PN SOFT [address] [place] [address] (ABNORMAL) Homocysteine (10/12/2017 8:44 AM ORACLE ERP DEVELOPER) [facility] Method Time Signature Homocysteine 3.8 (L) 5.0 - 15.4 PN SOFT Plasma umol/L Specimen Anatomical Collection Method Collection Time Receive d Time (Source) Location / / Volume Laterality 10/12/2017 8:44 AM 8 1:02 ORACLE ERP DEVELOPER PM ORACLE ERP DEVELOPER Narrative PN SOFT - 10/12/2017 3:08 PM ORACLE ERP DEVELOPER Performed at [address] [address] CLIA number [id number] Henrik Washington MD LAB_1 Performing Organization Address [facility] Phon e Number PN SOFT [address] [place] [address] Serum Folate (10/12/2017 8:44 AM ORACLE ERP DEVELOPER) athologist Signature Serum Folate 16.0 7.0 - PN SOFT 9,999.9 ng/mL Specimen Anatomical Collection Method Collection Time Receive d Time (Source) Location / / Volume Laterality 10/12/2017 8:44 AM 8 ORACLE ERP DEVELOPER 12:52 PM ORACLE ERP DEVELOPER Narrative PN SOFT - 10/12/2017 2:01 PM ORACLE ERP DEVELOPER Performed at [address] [address] CLIA number [id number] Henrik Washington MD LAB_1 Performing Organization Address [facility] Phon e Number PN SOFT [address] [place] [address] (ABNORMAL) Iron [IRON] (no IBC or SAT) (10/12/2017 8:44 AM ORACLE ERP DEVELOPER) athologist Signature Iron, Serum 31 (L) 50 - 170 PN SOFT ug/dL Specimen Anatomical Collection Method Collection Time Receive d Time (Source) Location / / Volume Laterality 10/12/2017 8:44 AM 8 1:18 ORACLE ERP DEVELOPER PM ORACLE ERP DEVELOPER Narrative PN SOFT - 10/12/2017 2:55 PM ORACLE ERP DEVELOPER Performed at [address] [address] CLIA number [id number] Henrik Washington MD LAB_1 Performing Organization Address [facility] Phon e Number PN SOFT [address] [place] [address] Hemoglobin A1C [A1C] (10/12/2017 8:44 AM ORACLE ERP DEVELOPER) athologist Signature HGB A1C 5.0 4.0 - 5.6 % PN SOFT Specimen Anatomical Collection Method Collection Time Receive d Time (Source) Location / / Volume Laterality 10/12/2017 8:44 AM 8 1:00 ORACLE ERP DEVELOPER PM ORACLE ERP DEVELOPER Narrative PN SOFT - 10/12/2017 3:11 PM ORACLE ERP DEVELOPER Performed at [address] [place] [address] CLIA number [id number] Henrik Washington MD LAB_1 Performing Organization Address [facility] Phon e Number PN SOFT [address] [place] [address] Glucose (GLUC) (10/12/2017 8:44 AM ORACLE ERP DEVELOPER) athologist Signature Lab Glucose 90 70 - 100 PN SOFT mg/dL Comment: The stated glucose range is for the fast ing state. Non-fasting glucose range is 70-180 mg/d L Specimen Anatomical Collection Method Collection Time Receive d Time (Source) Location / / Volume Laterality 10/12/2017 8:44 AM 8 8:44 ORACLE ERP DEVELOPER AM ORACLE ERP DEVELOPER Narrative PN SOFT - 10/12/2017 9:13 AM ORACLE ERP DEVELOPER Performed at [facility], [address] [place] [address] CLIA number [id number] Henrik Washington MD LAB_1 Performing Organization Address [facility] Phon e Number PN SOFT [address] [place] [address] Calcium [CA] (10/12/2017 8:44 AM ORACLE ERP DEVELOPER) athologist Signature Calcium 9.1 8.4 - 10.2 PN SOFT mg/dL Specimen Anatomical Collection Method Collection Time Receive d Time (Source) Location / / Volume Laterality 10/12/2017 8:44 AM 8 8:44 ORACLE ERP DEVELOPER AM ORACLE ERP DEVELOPER Narrative PN SOFT - 10/12/2017 9:13 AM ORACLE ERP DEVELOPER Performed at [facility], [address] [place] [address] CLIA number [id number] Henrik Washington MD LAB_1 Performing Organization Address [facility] Phon e Number PN SOFT [address] [place] [address] (ABNORMAL) CBC - Complete Blood Count - No Diff [ABC] (10/12/2017 8:44 AM ORACLE ERP DEVELOPER) [facility] gist Method Time Signature White Blood [...] Volume Laterality 10/12/2017 8:44 AM 8 8:44 ORACLE ERP DEVELOPER AM ORACLE ERP DEVELOPER Narrative PN SOFT - 10/12/2017 8:52 AM ORACLE ERP DEVELOPER Performed at [facility], [address] [place] [address] CLIA number [id number] Henrik Washington MD LAB_1 Performing Organization Address [facility] Phon e Number PN SOFT [address] [place] [address] US OB Follow-Up For Growth Single (Includes KATTY) (10/11/2017 6:11 PM ORACLE ERP DEVELOPER) Anatomical Region Laterality Modality Pelvis Ultrasound Specimen (Source) Anatomical Collection Method Collection Time Re ceived Time Location / / Volume Laterality 10/11/2017 5:28 PM ORACLE ERP DEVELOPER Impressions 10/11/2017 6:17 PM ORACLE ERP DEVELOPER IMPRESSION: 1. Single living intrauterine fetus with sonographic gestational age of 30 weeks 3 days, demonstrating appropriate interval growth. 2. Estimated weight is at the 39th percentile. Abdominal circumference is at the 29th percentile. 3. KATTY is in the normal range. Narrative 10/11/2017 6:17 PM ORACLE ERP DEVELOPER COMPARISON: ??08/01/2017. FINDINGS: ??A follow-up OB ultrasound wa s performed. ??Transabdominal ??imaging was performed. Type of Gestation: ??Douglas. Presentation: ??BREECH Movement Present: ??Yes Cardiac Rate: ??151 bpm and is regular 4-quadrant KATTY: 16.7 cm. Normal. Q1: 5.5 cm. Q2: 1.7 cm. Q3: 6.1 cm. Q4: 3.4 cm. Placental Position: ANTERIOR. Normal. LIMITED ANATOMIC SURVEY RESULTS: ??Unrem arkable The limited anatomic survey includes ass essment of: ??Heart: 4 Chamber View, M- Mode, Bladder, Stomach, Kidneys. Measurements (Source Hadlock): BPD: ??7.9 cm = 31w4d HC: 29.3 cm = 32w3d AC: ??25.3 cm = 29w3d FL: ??5.7 cm = 30w0d Anatomic Ratios: ??Within normal range Abdominal Circumference Percentile: 29.4 % Estimated Weight: ??1504 grams Weight Percentile: 39.1% Other Findings: None. GA by LMP: ??28w6d GA by Prior US: ??30w0d GA by today's US: ??30w3d FAHAD by today's US: ??12/17/2017 Procedure Note Joie Patten MD - 10/11/2017Formattin g of this note might be different from the original. COMPARISON: 08/01/2017. FINDINGS: A follow-up OB ultrasound was performed. Transabdominal imaging was performed. Type of Gestation: Douglas. Presentation: BREECH Movement Present: Yes Cardiac Rate: 151 bpm and is regular 4-quadrant KATTY: 16.7 cm. Normal. Q1: 5.5 cm. Q2: 1.7 cm. Q3: 6.1 cm. Q4: 3.4 cm. Placental Position: ANTERIOR. Normal. LIMITED ANATOMIC SURVEY RESULTS: Unremar kable The limited anatomic survey includes ass essment of: Heart: 4 Chamber View, M- Mode, Bladder, Stomach, Kidneys. Measurements (Source Hadlock): BPD: 7.9 cm = 31w4d HC: 29.3 cm = 32w3d AC: 25.3 cm = 29w3d FL: 5.7 cm = 30w0d Anatomic Ratios: Within normal range Abdominal Circumference Percentile: 29.4 % Estimated Weight: 1504 grams Weight Percentile: 39.1% Other Findings: None. GA by LMP: 28w6d GA by Prior US: 30w0d GA by today's US: 30w3d FAHAD by today's US: 12/17/2017 IMPRESSION IMPRESSION: 1. Single living intrauterine fetus with sonographic gestational age of 30 weeks 3 days, demonstrating appropriate interval growth. 2. Estimated weight is at the 39th percentile. Abdominal circumference is at the 29th percentile. 3. KATTY is in the normal range. Henrik Washington MD [facility] documented in this encounter Visit Diagnoses Diagnosis Previous gastric bypass affecting pregna ncy, antepartum - Primary Elderly primigravida in third trimester Obesity affecting in third tri mester Screening examination for venereal disea se Previous gastric bypass affecting pregna ncy, antepartum Obesity affecting in third tri mester Previous gastric bypass affecting pregna ncy, antepartum Screening examination for venereal disea se documented in this encounter Care Teams Skate Maker Relationship Specialty Start Date End Date Radha Armendariz MD PCP - General 05/04/16 03/19/[address] [place] [address] documented as of this encounter
--- OUTSIDE RECORDS SUMMARY | 2022-04-17 15:20 | XMS_ITS | Encounter Summary ---
:1980 Author Organization [facility] Address [address] [place] [address] Care Team Providers Name Role Phone Radha Armendariz MD Primary Care Provider Reason for Visit Reason Onset Date Comments LAB RESULTS 06/25/2017 carrier screen negat faisal/normal Encounter Details Date Type Department Care Team Description 06/25/2017 Telephone [facility] [address] (carrier Maternal Darlene Machuca CGC screen Medicine [address] negative/normal) [address] [place] [address] [phone] Social History Tobacco Use Types Packs/Day Years Used Date Smoking Tobacco: Former Smokeless Tobacco: Never Alcohol Use Standard Drinks/Week Comments No 0 (1 standard drink = 0.6 oz pure alcoho l) Sex Assigned at Date Recorded Not on file documented as of this encounter Nursing Notes Darlene Ramirez CGC - 06/25/2017 11:09 AM CDT Left voice mail message for Lennie to review negative/normal results of expanded carrier screening. Left call back number requesting return call to review results in more detail. Copy of results sent to [employer]. documented in this encounter Plan of Treatment Not on filedocumented as of this encounter Visit Diagnoses Not on filedocumented in this encounter Care Teams Supervisor Operations Relationship Specialty Start Date End Date Radha Armendariz MD PCP - General 05/04/16 03/19/[address] [place] [address] documented as of this encounter
--- OUTSIDE RECORDS SUMMARY | 2022-04-17 15:20 | XMS_ITS | Encounter Summary ---
:1980 Author Organization [facility] Address [address] [place] [address] Care Team Providers Name Role Phone Radha Armendariz MD Primary Care Provider Encounter Details Date Type Department Care Team Description 06/12/2017 Lab Visit [facility]te in first trimester; [facility] Lab Encounter for scre ening of mother; [address] [facility], Screen ing for genetic disease carrier status; [address] Supervision of other normal , [place] [address] Social History Tobacco Use Types Packs/Day Years Used Date Smoking Tobacco: Former Smokeless Tobacco: Never Alcohol Use Standard Drinks/Week Comments No 0 (1 standard drink = 0.6 oz pure alcoho l) Sex Assigned at Date Recorded Not on file documented as of this encounter Progress Notes Darlene Ramirez CGC - 08/15/2017 8:35 AM CST Left voice mail message for Lennie to review negative/normal results of expanded carrier screening. Left call back number requesting return call to review results in more detail. ?? Copy of results sent to [employer]. CETYLENE TORCH OPERATOR documented in this encounter Plan of Treatment Not on filedocumented as of this encounter Procedures Procedure Name Priority Date/Time Associated Diagnosis Comme nts LAB MISCELLANEOUS Routine 06/12/2017 2:55 Screening for Result s for this PM CDT genetic disease procedure ar e in carrier status the results Supervision of other section . normal , antepartum NON-INVASIVE INFORMED Routine 06/12/2017 2:55 Elderly multigra katelin Results for this SCREEN PM CDT in first trimest er procedure are in Encounter for the results screening section. of mother documented in this encounter Results Lab miscellaneous (06/12/2017 2:55 PM CDT) P athologist Signature Result Sent Ref PN SOFT Comment: Specimen has been sent out to a referenc e laboratory. Result will be communicated to the patient by t clinical team and stored with scanned documents in the med ical record when the report is received. Test Name Foresight Sammi PN SOFT Test Code Foresight Sammi PN SOFT Performing Laboratory [email or web address] PN SOFT Specimen Anatomical Collection Method Collection Time Receive d Time (Source) Location / / Volume Laterality 06/12/2017 2:55 PM 7 2:35 CDT PM CDT Darlene Ramirez [facility] LAB_1 Performing Organization Address [facility] Code Phon e Number PN SOFT [address] [place] [address] [phone] Non-invasive Informed Preg Scrn (NIPT) (06/12/2017 2:55 PM CDT) athologist Signature Informed See Note PN SOFT Screen Comment: Specimen has been sent out to a referenc e laboratory. Result will be communicated to the patient by t clinical team and stored with scanned documents in the med ical record when the report is received. Specimen Anatomical Collection Method Collection Time Receive d Time (Source) Location / / Volume Laterality 06/12/2017 2:55 PM 7 2:36 CDT PM CDT Narrative PN SOFT - 07/19/2017 10:42 AM OXYACETYLENE TORCH OPERATOR Performed at [employer]. [address] [place] [address] CLIA number [id number] Darlene Ramirez [facility] LAB_1 Performing Organization Address [facility] Phon e Number PN SOFT [address] [place] [address] documented in this encounter Visit Diagnoses Diagnosis Elderly multigravida in first trimester Encounter for screening of mot her Unspecified screening Screening for genetic disease carrier st atus Supervision of other normal , a ntepartum documented in this encounter Care Teams Bulk Plant Manager Relationship Specialty Start Date End Date Radha Armendariz MD PCP - General 05/04/16 03/19/[address] [place], [place] [address] documented as of this encounter
--- OUTSIDE RECORDS SUMMARY | 2022-04-17 15:20 | XMS_ITS | Encounter Summary ---
:1980 Author Organization [facility] Address [address] [place] [address] Care Team Providers Name Role Phone Radha Armendariz MD Primary Care Provider Reason for Visit Reason Onset Date Comments DENTAL PAIN 06/09/2017 Encounter Details Date Type Department Care Team Description 06/09/2017 Nurse Triage [facility] Radha Armendariz MD DENTAL PAIN [address] [place] [address] [place] [address] [phone] Social History Tobacco Use Types Packs/Day Years Used Date Smoking Tobacco: Former Smokeless Tobacco: Never Alcohol Use Standard Drinks/Week Comments No 0 (1 standard drink = 0.6 oz pure alcoho l) Sex Assigned at Date Recorded Not on file documented as of this encounter Nursing Notes Nicole Toledo RN - 06/09/2017 12:09 PM CDT Reason for Disposition ? ? Toothache present > 24 hours Protocols used: [id number] Pt called reports that she had a root canal on Sunday, pt states that she has had increase pain on her jaw line and tooth, pt reports no fever or facial swelling at this time, pain 5/10, pt state, thatshe has an appointment with a dentist today to evaluate the tooth, pt inquired about antibiotics, ptis 11 weeks 1 day , nurse advise pt to be seen at the dentist to determine the cause of her tooth/face pain, and if the dentist needs to prescribe an antibiotic there would be many safe ones toprescribe, pt or the dentist can call the nurse line if needing any questions answered. Outpatient Prescriptions as of 06/09/2017: 27-0.8 MG tablet Take 1 Tab by mouth. Note (05/28/2017): Received from: [facility] Received Sig: Take 1 tablet by mouth once daily. Indications: Disp: Rfl: triamcinolone acetonide (KENALOG) 0.1 % cream Apply topically 3 times daily. Disp: 80 g Rfl: 1 valACYclovir (VALTREX) 1 G tablet Take 2 tablets by mouth 2 times daily for 1 day. Disp: 4 tablet Rfl: 0 No current facility-administered medications on file as of 06/09/2017. Patient Active Problem List Diagnosis ??? DJD (degenerative joint disease) ??? Anemia ??? GERD (gastroesophageal reflux disease) ??? AMA (advanced maternal age) primigravida 35+ ??? Previous gastric bypass affecting , antepartum ??? CRISTINA (generalized anxiety disorder) (HRC) ??? Parent-child relational problem ??? Moderate episode of recurrent major depressive disorder (HRC) ??? Alcohol use disorder, severe, dependence (HRC) 11w1d documented in this encounter Plan of Treatment Not on filedocumented as of this encounter Visit Diagnoses Not on filedocumented in this encounter Care Teams Special Education Instructor Relationship Specialty Start Date End Date Radha Armendariz MD PCP - General 05/04/16 03/19/[address] [place] [address] documented as of this encounter
--- OUTSIDE RECORDS SUMMARY | 2022-04-17 15:20 | XMS_ITS | Encounter Summary ---
:1980 Author Organization [facility] Address [address] [place] [place] [address] Care Team Providers Name Role Phone Radha Armendariz MD Primary Care Provider Encounter Details Date Type Department Care Team Description 07/18/2017 Lab Visit [facility]te in [facility] second trimester [address] [place] [address], [address] [place] [address] Social History Tobacco Use Types Packs/Day Years Used Date Smoking Tobacco: Former Smokeless Tobacco: Never Alcohol Use Standard Drinks/Week Comments No 0 (1 standard drink = 0.6 oz pure alcoho l) Sex Assigned at Date Recorded Not on file documented as of this encounter Progress Notes Steph Barron APRN, CNP - 07/20/2017 1:45 PM CST AFP negative. Patient notified via [employer]. ALESCENT SITTER documented in this encounter Plan of Treatment Not on filedocumented as of this encounter Procedures Procedure Name Priority Date/Time Associated Diagnosis Comme nts MATERNAL SCREEN AFP Routine 07/18/2017 3:27 PM Elderly multigr avida Results for this CONVALESCENT SITTER in second trimester procedur e are in the results section. MAFP QUESTIONS Routine 07/18/2017 3:27 PM Elderly multigravida Results for this CONVALESCENT SITTER in second trimester procedur e are in the results section. documented in this encounter Results MAFP Questions (07/18/2017 3:27 PM CONVALESCENT SITTER) [facility] Method Time Signature Maternal Weight 255 [...] Volume Laterality 07/18/2017 3:27 PM 7 6:38 CONVALESCENT SITTER PM CONVALESCENT SITTER Narrative PN SOFT - 07/20/2017 12:23 PM CONVALESCENT SITTER Performed at [facility], [address] [place] [address] CLIA number [id number] Steph Barron APRN, FLIGHT OPERATIONS ENGINEER LAB_1 Performing Organization Address City/State/ZIP Code Phon e Number PN SOFT [address] [place] [address] [phone] Maternal Screen AFP (07/18/2017 3:27 PM CONVALESCENT SITTER) Analysis Performed At [facility] logist Time Signature AFP, Maternal 31.9 ng/mL [...] Volume Laterality 07/18/2017 3:27 PM 7 6:38 CONVALESCENT SITTER PM CONVALESCENT SITTER Narrative PN SOFT - 07/20/2017 12:23 PM CONVALESCENT SITTER Performed at [facility], [address] [place] [address] CLIA number [id number] Steph Barron APRN, IMANI LAB_1 Performing Organization Address City/State/ZIP Code Phon e Number PN SOFT [address] [place] [address] documented in this encounter Visit Diagnoses Diagnosis Elderly multigravida in second trimester documented in this encounter Care Teams Microbiology Teacher Relationship Specialty Start Date End Date Radha Armendariz MD PCP - General 05/04/16 03/19/[address] [place] [address] documented as of this encounter
--- OUTSIDE RECORDS SUMMARY | 2022-04-17 15:20 | XMS_ITS | Encounter Summary ---
:1980 [facility] Address [address] [place] [address] Care Team Providers Name Role Phone Radha Armendariz MD Primary Care Provider Reason for Visit Procedure/Equipment (Routine) - Incomplete Specialty Diagnoses / Procedures Referred By Contact Refer red To Contact Diagnoses AMA (advanced maternal age) multigravida 35+, first trimester Katelyn Solomon Procedures Yudy US OB Under 14 Wks L, CERAMICS TECHNICIAN, COMMUNITY DEVELOPMENT PLANNER [address] [place], [place] [address] Referral ID Status Reason Start Date Expiration Date Visits V isits Requested Authorized [id number] Incomplete 05/28/2017 08/27/2018 10 10 Encounter Details Date Type Department Care Team Description 06/19/2017 Imaging [place] [facility] HERNANDEZ Solomon ( advanced maternal Medicine Katelyn L, CERAMICS TECHNICIAN, age) multigravida 35+, [id number] [facility] first trimester [address] [place] [address] [phone] Social History Tobacco Use Types Packs/Day Years Used Date Smoking Tobacco: Former Smokeless Tobacco: Never Alcohol Use Standard Drinks/Week Comments No 0 (1 standard drink = 0.6 oz pure alcoho l) Sex Assigned at Date Recorded Not on file documented as of this encounter Plan of Treatment Not on filedocumented as of this encounter Procedures Procedure Name Priority Date/Time Associated Diagnosis Comme nts MFM US OB UNDER 14 Routine 06/19/2017 3:33 PM AMA (advanced Re sults for this WKS CDT maternal age) procedure are in multigravida 35+, the result s first trimester section. documented in this encounter Results Yudy US OB Under 14 Wks (06/19/2017 3:33 PM CDT) Anatomical Region Laterality Modality Pelvis Ultrasound Study GA Study Date Study FAHAD Working FAHAD (Source) W eight (Method) 13w4d 06/19/2017 12/21/2017 Result Name Value Comments GA by US Calc 96 days 96 Gest Sac CRL 7.64 cm 96 NT 1.5 mm FHR 142 bpm Specimen (Source) Anatomical Location Collection Method / Collectio n Time Received Time / Laterality Volume Impressions 06/19/2017 4:20 PM CDT S: Single live intrauterine at 13 w4d gestation by dates. INDICATIONS: ??Advanced maternal age. Mo rbid obesity. ??Prior bariatric surgery. ??Normal NIPT. ??Dating and 1st trimester anatomy. [place] rump length is NOT consistent with dates by LMP. ?? CRL differs from LMP by 8 days, therefor e per ACOG Guidelines, I have changed the FAHAD to 12-20-18 based on andi luo's US. . The NT is within normal limits for CRL. Normal cardiac activity is documen yadira. Normal first trimester anatomy is noted. This first trimester test does not scree n for open neural tube defect (ONTD, spina bifida).?? All women should be offered maternal serum alpha fetoprotein (MS-AFP) screening at 15-18 weeks gestation.?? An US for anatomy is recommended a t approximately 20 weeks gestation, since a first trimester US wi ll only detect less than 50% of congenital abnormalities. ?? Thank you for allowing us to participate in the care of your patient. ?? Narrative 06/19/2017 4:20 PM CDT Patient Name: Lennie Irene ??Feedlot Manager: Darling Sapp [facility] Patient ??GA Prior to Exam : 13w4d , Age: 10 1980, 37 y.o. ??GA by Tocece 's US: 13w5d LMP: Patient's last menstrual period was 03/23/2017 (exact date). ??GA Selected: 13w5d by Today's US Pregnancies: ??FAHAD Selected: 12/02 Hx/Indications: AMA Hx of gastric bypass First trimester assessment/Dating Negative NIPT (XY) ? Evaluation Gestation Type Douglas Cardiac Activity Present Heart Rate 142 bpm Motion Normal Presentation Cephalic Placenta Location Anterior Placenta Appearance/Findings Normal ?? Amniotic Fluid Normal Placenta Cord Insertion Inadequately Vis ualized ?? Biometry & Growth Measurement Value Rank GA CRL 7.64 cm 57% 13w5d NT 1.5 mm ?? First Trimester Gestational Sac Normal Pole Present Yolk Sac Not Seen Amnion Seen Nuchal Translucency Normal Nuchal Area Normal Anatomy Finding Normal Abnormal Inadequately Vis ualized Nasal Bone X ? Stomach X ? Bladder X ? Right Upper Extremity X ? Left Upper Extremity X ? Right Lower Extremity X ? Left Lower Extremity X ? Maternal Evaluation Cervix Normal Uterus Normal Cervical Length (cm) Approach N/A Transabdominal Right Ovary Inadequately Visualized With Fundal Pressure (cm) N/A ?? Left Ov andressa Inadequately Visualized Funneling Absent Right Adnexa Normal Cul-de-sac No fluid seen Left Adnexa Nor mal This ultrasound exam was technically dif ficult due to maternal body habitus. Impression Katelyn Rojas CERAMICS TECHNICIAN, COMMUNITY DEVELOPMENT PLANNER RAD YUDY US documented in this encounter Visit Diagnoses Diagnosis AMA (advanced maternal age) multigravida 35+, first trimester documented in this encounter Care Teams Paving Bed Maker Relationship Specialty Start Date End Date Radha Armendariz MD PCP - General 05/04/16 03/19/18 [address] [place] [address] documented as of this encounter
--- OUTSIDE RECORDS SUMMARY | 2022-04-17 15:20 | XMS_ITS | Encounter Summary ---
:1980 Author Organization [facility] Address [address] [place] [address] Care Team Providers Name Role Phone Radha Armendariz MD Primary Care Provider Reason for Visit Reason Comments Routine Visit Encounter Details Date Type Department Care Team Description 06/19/2017 Routine [facility] Henrik Washington R outine Services-LEASING MANAGER Visit [address], [address] [address] [phone] Social History Tobacco Use Types Packs/Day Years Used Date Smoking Tobacco: Former Smokeless Tobacco: Never Alcohol Use Standard Drinks/Week Comments No 0 (1 standard drink = 0.6 oz pure alcoho l) Sex Assigned at Date Recorded Not on file documented as of this encounter Last Filed Vital Signs Vital Sign Reading Time Taken Comments Blood Pressure 110/60 06/19/2017 1:46 PM CDT Pulse 73 06/19/2017 1:46 PM CDT Temperature - - Respiratory Rate - - Oxygen Saturation - - Inhaled Oxygen Concentration - - Weight 113.9 kg (251 lb) 06/19/2017 1:46 PM CDT Height - - Body Mass Index 37.07 05/28/2017 3:00 PM CDT documented in this encounter Progress Notes Henrik Washington - 06/19/2017 1:40 PM CDT No c/o's. Has 1st trim screening U/S today. Will probably use that to confirm dating as only U/S done was 7 days different EDC from her LMP EDC, and was an CERAMICS TEST ENGINEER U/S. Level 2 U/S at 20 weeks. Flu shot today. Hx Catalino-En-Y bypass, check Ca, Folate, B12, iron, homocysteine. RTC 3 weeks. MsAFP at next visit. documented in this encounter Plan of Treatment Not on filedocumented as of this encounter Results Calcium (06/19/2017 2:57 PM CDT) athologist Signature Calcium 9.2 8.4 - 10.2 PN SOFT mg/dL Specimen Anatomical Collection Method Collection Time Receive d Time (Source) Location / / Volume Laterality 06/19/2017 2:57 PM 7 5:08 CDT PM CDT Narrative PN SOFT - 06/19/2017 5:40 PM CDT Performed at [facility], [address] [place] [address] CLIA number [id number] Henrik Washington MD LAB_1 Performing Organization Address City/[facility] Phon e Number PN SOFT [address] [place] [address] Homocysteine (06/19/2017 2:57 PM CDT) athologist Signature Homocysteine 5.0 5.0 - 15.4 PN SOFT Plasma umol/L Specimen Anatomical Collection Method Collection Time Receive d Time (Source) Location / / Volume Laterality 06/19/2017 2:57 PM 7 6:30 CDT PM CDT Narrative PN SOFT - 06/19/2017 9:45 PM CDT Performed at [place] [address] [place] [address] CLIA number [id number] Henrik Washington MD LAB_1 Performing Organization Address [facility] Phon e Number PN SOFT [address] [place] [address] (ABNORMAL) Iron (no IBC or Sat) (06/19/2017 2:57 PM CDT) athologist Signature Iron, Serum 30 (L) 50 - 170 PN SOFT ug/dL Specimen Anatomical Collection Method Collection Time Receive d Time (Source) Location / / Volume Laterality 06/19/2017 2:57 PM 7 6:42 CDT PM CDT Narrative PN SOFT - 06/19/2017 7:20 PM [place] [address] CLIA number [id number] Henrik Washington MD LAB_1 Performing Organization Address [facility] Phon e Number PN SOFT [address] [place] [address] B12 Only (06/19/2017 2:57 PM CDT) athologist Signature Vitamin B12 703 213 - 816 PN SOFT pg/dL Specimen Anatomical Collection Method Collection Time Receive d Time (Source) Location / / Volume Laterality 06/19/2017 2:57 PM 7 6:42 CDT PM CDT Narrative PN SOFT - 06/19/2017 8:02 PM CDT Performed at [address] [address] CLIA number [id number] Henrik Washington MD LAB_1 Performing Organization Address [facility] Phon e Number PN SOFT [address] [place] [address] Serum Folate (06/19/2017 2:57 PM CDT) athologist Signature Serum Folate 16.9 7.0 - PN SOFT 9,999.9 ng/mL Specimen Anatomical Collection Method Collection Time Receive d Time (Source) Location / / Volume Laterality 06/19/2017 2:57 PM 7 6:32 CDT PM CDT Narrative PN SOFT - 06/19/2017 7:40 PM CDT Performed at [place] [id number] CLIA number [id number] Henrik Washington MD LAB_1 Performing Organization Address City/State/ZIP Code Phon e Number PN SOFT [address] [place] [address] documented in this encounter Visit Diagnoses Diagnosis Previous gastric bypass affecting pregna ncy, antepartum - Primary Elderly primigravida in first trimester Need for influenza vaccination Need for prophylactic vaccination and in oculation against influenza Previous gastric bypass affecting pregna ncy, antepartum documented in this encounter Care Teams Fishing Accessories Maker Relationship Specialty Start Date End Date Radha Armendariz MD PCP - General 05/04/16 03/19/[address] [place], [place] [address] documented as of this encounter
--- OUTSIDE RECORDS SUMMARY | 2022-04-17 15:20 | XMS_ITS | Encounter Summary ---
:1980 Author Organization [facility] Address [address] [place] [address] Care Team Providers Name Role Phone Radha Armendariz MD Primary Care Provider Reason for Visit Reason Comments Genetic Counseling Encounter Details Date Type Department Care Team Description 06/12/2017 Office Visit [place] Maternal Ashley, Supervis ion of other normal , antepartum (Primary Dx); Medicine Darlene Machuca CGC Elderly multigravida in first trimester; [address] for screening of mother; Drive, [address] [facility] disease [facility] [place] [address] [id number] Social History Tobacco Use Types Packs/Day Years Used Date Smoking Tobacco: Former Smokeless Tobacco: Never Alcohol Use Standard Drinks/Week Comments No 0 (1 standard drink = 0.6 oz pure alcoho l) Sex Assigned at Date Recorded Not on file documented as of this encounter Progress Notes Darlene Ramirez CGC - 06/12/2017 2:15 PM CDT Clinic Genetic Counseling Visit Summary Counselor: Darlene Ramirez CGC 2:59 PM 06/12/2017 Lennie Irene was referred for genetic counseling by her OB provider, patient is advanced maternal age and desires genetic screening. Partner's name: Carlos, age 28, not present at today's visit History: Her estimated date of delivery is 12/28/2017, by Last Menstrual Period The couple has a 15 month old daughter who is in good health. Risk Assessment: Patient date of : 1980. The patient will be 37 years at delivery. ?? The age-related risk of Down syndrome in the first trimester is 1 in 100 ?? The age-related risk of any chromosome abnormality (including trisomies 21, 13, 18, and others) in the first trimester is 1 in 51. She is aware chromosome abnormalities are non-hereditary causes of defects. We reviewed the concepts of genes, chromosomes and non-disjunction. The clinical features and natural history of age related aneuploidies was reviewed. Other risk factors in for defects: Ultrasound concerns today, maternal conditions or exposures: Lennie has a history of alcohol abuse. She reports drinking about 1/4 - 1/2 liters of alcohol every other day until the was identified, around 4 weeks gestation (04/23/2017). She has not consumed alcohol since that time. All pregnancies have a 3-4% chance to have a defect defect or mental retardation. There are many factors which influence the chance that exposures will cause defects. These factorsinclude timing of exposure, dose, route, genetic makeup of the baby and mother, and the presence of other exposures. There is limited data about use of illegal substances in . This makes it difficult to predict which pregnancies will have effects from exposures, and which will not. When mothers stop drinking early in , most babies are born without significant differences or health problems. There may be a slightly increased risk for certain types of differencessuch as cleft lip and palate, or heart defects, but the absolute risk is low. Given early gestational age, and if she does not consume additional alcohol, the most likely outcome is a healthy baby. alcohol spectrum disorders (FADS) are a group of conditions that can occur in individuals whose mothers drank alcohol during . These effects can range from mild to severe, and can include physical problems, and problems with behavior and learning. There are many factors that influence the chance for an alcohol related defect, including timing of exposure, dose, route, genetic makeup of the baby and mother, and other exposures. There is no specific test to diagnose or rule out FADS. Family history based on review of three generation pedigree (scanned into chart): Lennie does not have medical information from her father's side of the family. She believes he was healthy and had a son. Carlos has a maternal cousin (in his 20's) who has developmental delays. He may have also had seizures in childhood, which he outgrew. He is currently lives independently and is in college. He has no defects or other known medical concerns. Developmental delay is a nonspecific diagnosis with multiple genetic and non-genetic etiologies, for which an accurate recurrence risk cannot be determined. Review of the medical records and/or evaluation by a biomedical instrument technician of the affected family member, may be helpful in defining the condition. There are no other relatives known to have learning disabilities or delays. Risk to the is likely low. The remainder of the family history was negative for any family history risk factors relevant to thecurrent including no reports of defects, multiple losses, mental retardation or genetic disease. Screening/Testing Options: We discussed differences in screening tests versus diagnostic testing options. Non-invasive testing via blood draw for cell free DNA: this screening examines maternal blood for presence of chromosome material from chromosomes 21, 13 and 18. It has a reported 99% sensitivity for Down syndrome. gender can also be determined if desired and sex chromosome aneuploidy would also be tested for (if the patient opts to obtain this information). A normal resultdoes not rule out these conditions definitively and does not test for other chromosomal or genetic conditions. About 1% of the time, there is an undetermined or borderline result. An amniocentesis (after 15 weeks) or blood testing is recommended to confirm an abnormal result. We did review poss ible results from NIPT: normal, abnormal or borderline. We discussed resources available should a baby be affected with a chromosome abnormality First trimester screening: this screening provides us with a risk assessment for Down syndrome and trisomies 13/18. nuchal translucency and nasal bone measurement are combined with blood draw forfree-beta hCG and SERG-A. She understands this screening does not provide a definitive diagnostic answer, only a risk assessment. MS-AFP is indicated at 16-20 weeks gestation to screen for open neural tube defects. Level II ultrasound: the capabilities and limitations this scan were reviewed. It is standard of care for women 35 or over at delivery and is typically scheduled at 19-20 weeks gestation. Approximatelyhalf of babies with Down syndrome and most babies with trisomies 13 and 18 have distinctive featuresnoted on Level II ultrasound. This means that a normal level II ultrasound can reduce the risk for achromosome condition but cannot eliminate it. Diagnostic testing for aneuploidy includes chorionic villus sampling (CVS) at 10-12 weeks or amniocentesis after 15 weeks. These tests provide a definitive karyotype and opportunity for single gene or microarray analysis if there is an indication. There is a risk of miscarriage associated with these procedures. We discussed the timing of these tests and the impact on her options available with regard to management if chromosome abnormality was detected. Patients cite multiple reasons for testing such as reassurance, preparation, management decisions and elective interruption of affected pr egnancies. Carrier screening: The patient and father of the are of ancestry. I explained theavailability of carrier screening for cystic fibrosis, SMA, hemoglobinopathies and other autosomal recessive disorders. ACOG and ACMG recommended carrier testing offered given their background. The incidence and inheritance of these disorders given their ethnic background was explained. She elected topursue carrier testing. screening also reviewed. Assessment: Advanced maternal age. She desires NIPT and expanded carrier screening. Plan: Patient elected to proceed with NIPT and expanded carrier screening. Verbal informed consent obtained and billing/financial information reviewed. I will contact her in 7-10 days with results of NIPT screening, and in about 2 weeks with carrier screen results. Because of a scheduling error, she is scheduled for her NT ultrasound next week. She declines diagnostic testing (CVS/amniocentesis) at this time. MS-AFP and Level II ultrasound discussed as follow-up. Karin Ramirez MS [facility] Genetic Counselor [facility] [phone] Total Time/CT: 45 minutes Supervising MD: Calista Salcedo documented in this encounter Plan of Treatment Not on filedocumented as of this encounter Results Lab miscellaneous (06/12/2017 2:55 PM CDT) athologist Signature Result Sent Ref PN SOFT Comment: Specimen has been sent out to a referenc e laboratory. Result will be communicated to the patient by t clinical team and stored with scanned documents in the med ical record when the report is received. Test Name Foresight Sammi PN SOFT Test Code Foresight Sammi PN SOFT Performing Laboratory counsyl PN SOFT Specimen Anatomical Collection Method Collection Time Receive d Time (Source) Location / / Volume Laterality 06/12/2017 2:55 PM 7 2:35 CDT PM CDT Darlene Garciae [facility] LAB_1 Performing Organization Address City/[facility] Phon e Number CHRSI SOFT [address] [place] [address] Non-invasive Informed Preg Scrn (NIPT) (06/12/2017 2:55 PM CDT) athologist Signature Informed See Note PN SOFT Screen Comment: Specimen has been sent out to a referenc e laboratory. Result will be communicated to the patient by anjana clinical team and stored with scanned documents in the med ical record when the report is received. Specimen Anatomical Collection Method Collection Time Receive d Time (Source) Location / / Volume Laterality 06/12/2017 2:55 PM 7 2:36 CDT PM CDT Narrative PN SOFT - 07/19/2017 10:42 AM SKATESMAN Performed at [facility] [employer]. [address] [place] [address] CLIA number [id number] Darlene Garciae [facility] LAB_1 Performing Organization Address City/[facility] Phon e Number CHRIS SOFT [address] [place] [address] documented in this encounter Visit Diagnoses Diagnosis Supervision of other normal , a ntepartum - Primary Elderly multigravida in first trimester Encounter for screening of mot her Unspecified screening Screening for genetic disease carrier st atus Elderly multigravida in first trimester Encounter for screening of mot her Unspecified screening Screening for genetic disease carrier st atus Supervision of other normal , a ntepartum documented in this encounter Care Teams Wedding Florist Relationship Specialty Start Date End Date Radha Armendariz MD PCP - General 05/04/16 03/19/[address] [place] [address] documented as of this encounter
--- OUTSIDE RECORDS SUMMARY | 2022-04-17 15:20 | XMS_ITS | Encounter Summary ---
:1980 Author Organization [facility] Address [address] [place] [address] Care Team Providers Name Role Phone Radha Armendariz MD Primary Care Provider Reason for Visit Procedure/Equipment (Routine) - Incomplete Specialty Diagnoses / Procedures Referred By Contact Refer red To Contact Diagnoses Previous gastric bypass affecting , antepartum Advanced maternal age in multigravida, second trimester Morbid obesity (HRC) Henrik Washington MD Procedures Yudy US Level 2 Yudy US Level [address] [place] [address] Referral ID Status Reason Start Date Expiration Date Visits V isits Requested Authorized [id number] Incomplete 06/19/2017 09/18/2018 10 10 Encounter Details Date Type Department Care Team Description 08/01/2017 [facility] [address] Manuel Washington MD Previous gastric bypass affecting pregna ncy, antepartum; Maternal [address] Elderl y primigravida in first trimester; Medicine [address] Advanced maternal age in multigravida, s econd trimester; [address] [place] [address] Morbid obesity (HRC) [place], [place] [address] [phone] Social History Tobacco Use Types Packs/Day Years Used Date Smoking Tobacco: Former Smokeless Tobacco: Never Alcohol Use Standard Drinks/Week Comments No 0 (1 standard drink = 0.6 oz pure alcoho l) Sex Assigned at Date Recorded Not on file documented as of this encounter Plan of Treatment Not on filedocumented as of this encounter Procedures Procedure Name Priority Date/Time Associated Diagnosis Comme nts [facility] US LEVEL 2 Routine 08/01/2017 10:44 AM Previous gastric Re sults for this ANODIZING LINE OPERATOR bypass affecting procedure a re in the , antep artum results section. Advanced maternal age in multigravida, second trimester Morbid obesity (HRC) documented in this encounter Results Yudy US Level 2 (08/01/2017 10:44 AM ANODIZING LINE OPERATOR) Anatomical Region Laterality Modality Pelvis Ultrasound Study GA Study Date Study FAHAD Working FAHAD (Source) W eight (Method) 19w6d 08/01/2017 12/20/2017 320 g (Hadlock 1984 (BPD, HC, AC, FL) )318 g (Had lock 1984 (AC, FL) )324 g (Hadlock 1984 (BPD, AC, FL) )317 g (Had lock 1984 (HC, AC, FL) )322 g (Had lock 1983 (AC) )309 g (Hadlock 1983 (HC, AC) )339 g ([place]way 1981 (BPD, AC) ) Result Name Value Comments GA by US Calc 139 days 139 BPD 4.82 cm 144 HC 17.4 cm 140 AC 14.43 cm 138 FL 3.21 cm 140 HL 3.13 cm FL/BPD 66.6 % FL/AC 22.25 % HC/AC 1.21 CI 80.47 % KATTY Lateral Ventricle CER 1.88 cm Foot 3.36 cm 143 Max Vertical Pocket FHR 148 bpm UAR - PSV UAR - S/D Ratio UAR - RI UAR - PI MCA - PSV MCA - S/D Ratio MCA - PI Cisterna Magna .65 cm NF .42 cm Specimen (Source) Anatomical Location Collection Method / Collectio n Time Received Time / Laterality Volume Narrative 08/01/2017 11:23 AM ANODIZING LINE OPERATOR Patient Name: Lennie Irene ??Ball Mill Mixer: Cecy Powell [facility] Patient ??GA Prior to Exam : 19w6d , Age: 10 1980, 37 y.o. ??GA by Lee jean's US: 19w6d LMP: Patient's last menstrual period was 03/23/2017 (exact date). ??GA Selected: 19w6d by Prior US Pregnancies: ??FAHAD Selected: 12/02 Hx/Indications: AMA Morbid Obesity Hx of gastric bypass Negative NIPT (XY) Normal AFP ? Evaluation Gestation Type Douglas Cardiac Activity Present Heart Rate 148 bpm Motion Normal Presentation Cephalic Placenta Location Anterior Placenta Appearance/Findings Normal Amniotic Fluid Normal Placenta Cord Insertion Normal ?? Biometry & Growth Measurement Percentage GA Ratios ?? BPD 4.82 cm 78% 20w4d FL/BPD 66.6 % HC 17.4 cm 46% 20w0d FL/AC 22.25 % AC 14.43 cm 41% 19w5d HC/AC 1.21 FL 3.21 cm 48% 20w0d CI 80.47 % HL 3.13 cm 50 - 95% 20w3d ? CER 1.88 cm 10 - 50% 19w0d ? Foot 3.36 cm ?? 20w3d ?? Weight: 320 g (11.3 oz), 47% ?? Anatomy Finding Normal Abnormal Inadequately Vis ualized ??Finding Normal Abnormal Inadequately Visualized Head ? Heart ? Cranium X ?Heart Rhythm Regular ? Falx X ?4 Chamber Heart X ? Cerebellum/Vermis X ?Cardiac Tyro X ? Choroid Plexus X ?Cardiac Positio n X ? Cisterna Magna X ?Visceral/Abdomi nal Situs X ? Lateral Ventricle X ?AV Valves X ? Cavum Septi Pellucidi X ?Valve Mo tion X ? Face ? LVOT/AO X ? Orbits/Lenses X ?RVOT/PA X ? Lip/Nose X ?Aortic Arch X ? Profile X ?Ductal Arch X ? Nasal Bone X ?IVC/SVC X ? Spine ? 3 Vessel View X ? Spine X ?3 Vessel Trachea View X ? Chest ? Foramen Ovale X ? Thorax X ?Pulmonary Veins X ? Lungs X ?Short Tyro of Ventricles X ? Pleural Effusion Absent ? Short Tyro of Great Vessels X ? Abdomen ? Pericardial Effusion Absen t ? Diaphragm X ?Intraventricular Sep araceli X ? Stomach X ?Ductus Venosus X ? Liver X ?Urinary ? Bowel X ?Right Kidney X ? Ascites Absent ? Left Kidney X ? Umbilical Cord Insertion X ?Bladd er X ? Cord Vessels Three ? Genitalia ? Extremities ? Genitalia X ? Right Upper Extremity X ?Sex Male ? Left Upper Extremity X ?Skin ? Right Lower Extremity X ?Edema Ab sent ? Left Lower Extremity X ? This ultrasound exam was technically dif ficult due to maternal body habitus. Maternal Evaluation Cervix Normal Uterus Normal Cervical Length (cm) Approach 3.4 Transabdominal Right Ovary Inadequately Visualized With Fundal Pressure (cm) N/A ?? Left Ov andressa Inadequately Visualized Funneling N/A Right Adnexa Normal Cul-de-sac No fluid seen Left Adnexa Nor mal Impression 1) Intrauterine at 19w6d weeks gestational age 2) None of the anomalies commonly detect ed by ultrasound were evident in the detailed anatomic survey descr ibed above. 3) biometry is consistent with ges tation age. ?? 4) The amniotic fluid volume appeared no rmal. 5) Normal echocardiogram 6) Normal cervical length 7) No markers for aneuploidy seen Henrik Washington MD RAD YUDY US documented in this encounter Visit Diagnoses Diagnosis Previous gastric bypass affecting pregna ncy, antepartum Elderly primigravida in first trimester Advanced maternal age in multigravida, s econd trimester Morbid obesity (HRC) Morbid obesity documented in this encounter Care Teams Soil Expert Relationship Specialty Start Date End Date Radha Armendariz MD PCP - General 05/04/16 03/19/[address] [place] [address] documented as of this encounter
--- OUTSIDE RECORDS SUMMARY | 2022-04-17 15:20 | XMS_ITS | Encounter Summary ---
:1980 Author Organization [facility] Address [address] [place] [address] Care Team Providers Name Role Phone Radha Armendariz MD Primary Care Provider Reason for Visit Procedure/Equipment (Routine) - Incomplete Specialty Diagnoses / Procedures Referred By Contact Refer red To Contact Diagnoses Previous gastric bypass affecting , antepartum Obesity affecting in third trimester Henrik Washington MD Procedures US OB Follow-Up For Growth Single (Includes KATTY) [address] [place] [address] Referral ID Status Reason Start Date Expiration Date Visits V isits Requested Authorized [id number] Incomplete 09/28/2017 12/28/2018 10 10 Encounter Details Date Type Department Care Team Description 10/11/2017 Imaging [place] [facility] Henrik Washington MD Previous gastric bypass affecting pregna ncy, antepartum; [address] Obesity affecting in third [place] [address] [address] [place], [place] [address] (Wo rk) Social [...] Comme nts US OB FOLLOW-UP FOR Routine 10/11/2017 6:11 PM Previous gastri c Results for this GROWTH SINGLE DIRECTOR DANCE bypass affecting procedure are in (INCLUDES KATTY) , the results antepartum section. Obesity affecting in third trimester documented in this encounter Results US OB Follow-Up For Growth Single (Includes KATTY) (10/11/2017 6:11 PM DIRECTOR DANCE) Anatomical Region Laterality Modality Pelvis Ultrasound Specimen (Source) Anatomical Collection Method Collection Time Re ceived Time Location / / Volume Laterality 10/11/2017 5:28 PM DIRECTOR DANCE Impressions 10/11/2017 6:17 PM DIRECTOR DANCE IMPRESSION: 1. Single living intrauterine fetus with sonographic gestational age of 30 weeks 3 days, demonstrating appropriate interval growth. 2. Estimated weight is at the 39th percentile. Abdominal circumference is at the 29th percentile. 3. KATTY is in the normal range. Narrative 10/11/2017 6:17 PM DIRECTOR DANCE COMPARISON: ??08/01/2017. FINDINGS: ??A follow-up OB ultrasound [...] in the normal range. Henrik Washington MD [facility] documented in this encounter Visit Diagnoses Diagnosis Previous gastric bypass affecting pregna ncy, antepartum Obesity affecting in third [facility] documented in this encounter Care Teams Blindstitch Lining Feller Relationship Specialty Start Date End Date Radha Armendariz MD PCP - General 05/04/16 03/19/18 [address], [place] [address] documented as of this encounter
--- OUTSIDE RECORDS SUMMARY | 2022-04-17 15:20 | XMS_ITS | Encounter Summary ---
:1980 Author Organization [facility] Address [address] [place] [address] Care Team Providers Name Role Phone Radha Armendariz MD Primary Care Provider Encounter Details Date Type Department Care Team Description 05/28/2017 Lab Visit [facility] Screening for diabetes adam tus; [address] screening for isoi mmunization; [place], [place] [address] Screening for blood disease; [phone] Screening exami nation for venereal disease; Screening exami nation for rubella; AMA (advanced m aternal age) multigravida 35+, first trimester; Encounter for d rug screening Social History Tobacco Use Types Packs/Day Years Used Date Smoking Tobacco: Former Smokeless Tobacco: Never Alcohol Use Standard Drinks/Week Comments No 0 (1 standard drink = 0.6 oz pure alcoho l) Sex Assigned at Date Recorded Not on file documented as of this encounter Plan of Treatment Not on filedocumented as of this encounter Procedures Procedure Name Priority Date/Time Associated Diagnosis Comme nts DRUGS OF ABUSE Routine 05/28/2017 3:53 Encounter for drug Resu lts for this SCREEN, URINE, W/ PM CDT screening procedure are in CONF the results section. URINALYSIS Routine 05/28/2017 3:53 AMA (advanced maternal Re sults for this ROUTINE(MICRO IF PM CDT age) multigravida 35+, p rocedure are in POS) first trimester the results section. URINE CULTURE Routine 05/28/2017 3:53 AMA (advanced maternal R esults for this PM CDT age) multigravida 35+, proce dure are in first trimester the results section. RUBELLA IMMUNE Routine 05/28/2017 3:50 Screening examination R esults for this STATUS, IGG PM CDT for rubella procedure are i n the results section. HIV-1 P24 AND Routine 05/28/2017 3:50 Screening examination Re sults for this HIV-1/HIV-2 PM CDT for venereal disease procedu re are in ANTIBODIES the results section. ANTIBODY SCREEN Routine 05/28/2017 3:50 screening fo r Results for this PM CDT isoimmunization procedure ar e in the results section. TREPONEMA SCREEN Routine 05/28/2017 3:50 Screening examination Results for this PM CDT for venereal disease procedu re are in the results section. HEP B SURFACE Routine 05/28/2017 3:50 Screening examination Re sults for this ANTIGEN, NO REFLEX PM CDT for venereal disease p rocedure are in the results section. COMPLETE BLOOD Routine 05/28/2017 3:50 Screening for blood Res ults for this COUNT-W/DIFF PM CDT disease procedure are i n the results section. DIFFERENTIAL Routine 05/28/2017 3:50 Results for this PM CDT procedure are i n the results section. HGB A1C Routine 05/28/2017 3:50 Screening for diabetes Re sults for this PM CDT mellitus procedure are i n the results section. documented in this encounter Results Drugs of Abuse Screen, Urine, w/ conf (05/28/2017 3:53 PM CDT) [facility] Method Time Signature Alcohol Urine Negative Negative PN SOFT Amphetamine Urine Negative Negative PN SOFT Barbituate Urine Negative Negative PN SOFT Benzodiazepine Negative Negative PN SOFT Urine Cocaine Urine Negative Negative PN SOFT Methadone Urine Negative Negative PN SOFT Opiate Urine Negative Negative PN SOFT Oxycodone Urine Negative Negative PN SOFT Phencyclidine Negative Negative PN SOFT Urine THC Urine Negative Negative PN SOFT Comment: The absence of expected drug(s) and/or d rug metabolite(s) may indicate non-compliance, inappropiate ti allen of specimen collection relative to drug administrati on, poor drug absorption, diluted/adulterated urine, or limitation s of testing. The concentration must be greater than or eq ual to the cutoff concentration to be reported as positive . For medical purposes only; not valid for forensic, legal or e mployment use. Specimen Anatomical Collection Method Collection Time Receive d Time (Source) Location / / Volume Laterality 05/28/2017 3:53 PM 7 6:24 CDT PM CDT Narrative PN SOFT - 05/28/2017 7:23 PM CDT Performed at [facility] [address] [place] [address] CLIA number [id number] Katelyn Rojas APRN, CNP LAB_1 Performing Organization Address [facility] Phon e Number PN SOFT [address] [place] [address] Urine Culture (05/28/2017 3:53 PM CDT) Analysis Performed At Path logist Time Signature Source Urine PN SOFT Site clean catch PN SOFT Urine Cuture No Growth 05/29/2017 PN SOFT After 1 Day 6:35 PM CDT Specimen (Source) Anatomical Collection Method Collection Time Re ceived Time Location / / Volume Laterality Urine:clean catch 05/28/2017 3:53 PM CDT Narrative PN SOFT - 05/29/2017 6:35 PM CDT Performed at [facility], [address] [place] [address], CLIA Number [id number] Katelyn Rojas APRN, GAS AND OIL SERVICER LAB_1 Performing Organization Address [facility] Phon e Number PN SOFT [address] [place] [address] Urinalysis Routine(Micro If Pos) (05/28/2017 3:53 PM CDT) Patholo gist Method Time Signature Urine Type URINE:clean PN SOFT cat Turbidity Clear Clear PN SOFT U BILI Negative Negative PN SOFT Blood Urine Trace Neg - Trace PN SOFT Glucose, Negative Neg-30 PN SOFT Qualitative U mg/dL Ketones Negative Negative PN SOFT Leukocyte Negative Negative PN SOFT Esterase Urine Nitrite Urine Negative Negative PN SOFT pH Urine 6.0 5.0 - 8.0 PN SOFT Protein Urine Negative Neg - Trace PN SOFT mg/dL U Specific 1.010 1.005 - PN SOFT [place] 1.030 Urobilinogen Negative Negative PN SOFT Urine Eu/dL Specimen Anatomical Collection Method Collection Time Receive d Time (Source) Location / / Volume Laterality Urine 05/28/2017 3:53 PM 7 3:53 CDT PM CDT Narrative PN SOFT - 05/28/2017 3:56 PM CDT Performed at [facility] [place] [address] CLIA number [id number] Katelyn Rojas APRN, IMANI LAB_1 Performing Organization Address [facility] Phon e Number PN SOFT [address] [place] [address] Differential (05/28/2017 3:50 PM CDT) P athologist Signature Absolute 7.2 1.8 - 8.0 PN SOFT Neutrophils k/cmm Absolute 2.8 1.1 - 4.0 PN SOFT Lymphocytes k/cmm Absolute 0.7 0.2 - 0.8 PN SOFT Monocytes k/cmm Absolute 0.2 0.0 - 0.5 PN SOFT Eosinophils k/cmm Absolute 0.0 0.0 - 0.2 PN SOFT Basophils k/cmm Specimen Anatomical Collection Method Collection Time Receive d Time (Source) Location / / Volume Laterality 05/28/2017 3:50 PM 7 3:50 CDT PM CDT Narrative PN SOFT - 05/28/2017 4:04 PM CDT Performed at [facility] [place] [address] CLIA number [id number] Katelyn Rojas APRN, IMANI LAB_1 Performing Organization Address [facility] Phon e Number PN SOFT [address] [place] [address] Rubella Immune Status, IgG (05/28/2017 3:50 PM CDT) Patholo gist Method Time Signature Rubella Immune Immune PN SOFT Intepretation Rubella Units 1.21 >0.99 IV PN SOFT Comment: The magnitude of the measured result, ab ove the cutoff, is not indicative of the amount of antibody present. Specimen Anatomical Collection Method Collection Time Receive d Time (Source) Location / / Volume Laterality 05/28/2017 3:50 PM 7 6:28 CDT PM CDT Narrative PN SOFT - 05/29/2017 10:34 AM CDT Performed at [address] [address] CLIA number [id number] Katelyn Rojas MATE FISHING VESSEL, GAS AND OIL SERVICER LAB_1 Performing Organization Address [facility] Phon e Number PN SOFT [address] [place] [address] Treponema Screen (05/28/2017 3:50 PM CDT) [facility] Method Time Signature Treponema Non Reactive Non Reactive PN SOFT Screen Specimen Anatomical Collection Method Collection Time Receive d Time (Source) Location / / Volume Laterality 05/28/2017 3:50 PM 7 6:27 CDT PM CDT Narrative PN SOFT - 05/28/2017 7:48 PM CDT Performed at [address] [address] CLIA number [id number] Katelyn Rojas MATE FISHING VESSEL, GAS AND OIL SERVICER LAB_1 Performing Organization Address [facility] Phon e Number PN SOFT [address] [place] [address] LAB HIV-1 p24 AND HIV-1/HIV-2 ANTIBODIES (05/28/2017 3:50 PM CDT) [facility] Method Time Signature HIV-1 p24 Ag Nonreactive Nonreactive PN SOFT and HIV-1/HIV-2 Ab Specimen Anatomical Collection Method Collection Time Receive d Time (Source) Location / / Volume Laterality 05/28/2017 3:50 PM 7 6:27 CDT PM CDT Narrative PN SOFT - 05/28/2017 7:08 PM CDT Performed at [address] [address] CLIA number [id number] Katelyn Rojas MATE FISHING VESSEL, GAS AND OIL SERVICER LAB_1 Performing Organization Address [facility] Phon e Number PN SOFT [address] [place] [address] HEP B SURFACE ANTIGEN, NO REFLEX (05/28/2017 3:50 PM CDT) [facility] Method Time Signature Hep B Surf Ag Nonreactive Nonreactive PN SOFT Specimen Anatomical Collection Method Collection Time Receive d Time (Source) Location / / Volume Laterality 05/28/2017 3:50 PM 7 6:26 CDT PM CDT Narrative PN SOFT - 05/28/2017 7:09 PM CDT Performed at [facility], [address] [place] [address] CLIA number [id number] Katelyn Rojas APRN, GAS AND OIL SERVICER LAB_1 Performing Organization Address [facility] Phon e Number PN SOFT [address] [place] [address] (ABNORMAL) HEMOGRAM/PLTS/DIFF (05/28/2017 3:50 PM CDT) [facility] Method Time Signature White Blood Cell 11.0 3.8 - 11.0 PN SOFT Count k/cmm Red Blood Cell 4.05 3.70 - PN SOFT Count 5.20 m/cmm Hemoglobin 11.5 (L) 11.8 - PN SOFT 15.5 g/dL Hematocrit 34.8 (L) 35.0 - PN SOFT 46.0 % Mean Corpuscular 85.9 80.0 - PN SOFT Volume 100.0 fL RDW 14.6 11.0 - PN SOFT 15.0 % Platelet Count 282 140 - 450 PN SOFT k/cmm Specimen Anatomical Collection Method Collection Time Receive d Time (Source) Location / / Volume Laterality 05/28/2017 3:50 PM 7 3:50 CDT PM CDT Narrative PN SOFT - 05/28/2017 4:04 PM CDT Performed at [facility] [address], [place] [address] CLIA number [id number] Katelyn Rojas APRN, GAS AND OIL SERVICER LAB_1 Performing Organization Address [facility] Phon e Number PN SOFT [address] [place] [address] Antibody Screen (05/28/2017 3:50 PM CDT) athologist Signature Antibody Screen NEG PN SOFT Specimen Anatomical Collection Method Collection Time Receive d Time (Source) Location / / Volume Laterality 05/28/2017 3:50 PM 7 6:26 CDT PM CDT Narrative PN SOFT - 05/28/2017 8:18 PM CDT Performed at [facility] [address] [place] [address] CLIA number [id number] Katelyn Rojas APRN, GAS AND OIL SERVICER PN BLOOD BANK ORD ERS Performing Organization Address [facility] Phon e Number PN SOFT [address] [place] [address] HGB A1C (05/28/2017 3:50 PM CDT) athologist Signature HGB A1C 5.3 4.0 - 5.6 % PN SOFT Specimen Anatomical Collection Method Collection Time Receive d Time (Source) Location / / Volume Laterality 05/28/2017 3:50 PM 7 6:30 CDT PM CDT Narrative PN SOFT - 05/28/2017 11:38 PM CDT Performed at [facility], [facility] [place] [address] CLIA number [id number] Katelyn Rojas APRN, GAS AND OIL SERVICER LAB_1 Performing Organization Address [facility] Phon e Number PN SOFT [address] [place] [address] documented in this encounter Visit Diagnoses Diagnosis Screening for diabetes mellitus screening for isoimmunization Screening for blood disease Screening for unspecified disorder of bl ood and blood-forming organs Screening examination for venereal disea se Screening examination for rubella AMA (advanced maternal age) multigravida 35+, first trimester Encounter for drug screening documented in this encounter Care Teams Music Coordinator Relationship Specialty Start Date End Date Radha Armendariz MD PCP - General 05/04/16 03/19/18 [address] [place] [address] documented as of this encounter
--- OUTSIDE RECORDS SUMMARY | 2022-04-17 15:20 | XMS_ITS | Encounter Summary ---
:1980 Author Organization [facility] Address [address] [place] [address] Care Team Providers Name Role Phone Radha Armendariz MD Primary Care Provider Reason for Visit Reason Onset Date Comments Vaginal Discharge 06/15/2017 Encounter Details Date Type Department Care Team Description 06/15/2017 Telephone [place] Tiffanie Rojas, Vaginal Disc harge Obstetrics/Gynecolog y Katelyn Potts, PULLMAN CAR REPAIRER, IT HELP DESK TECHNICIAN [address] [place], [place] [address] [place] [address] [phone] (Wo rk) Social History Tobacco Use Types Packs/Day Years Used Date Smoking Tobacco: Former Smokeless Tobacco: Never Alcohol Use Standard Drinks/Week Comments No 0 (1 standard drink = 0.6 oz pure alcoho l) Sex Assigned at Date Recorded Not on file documented as of this encounter Nursing Notes Ольга Merchant, RN - 06/15/2017 4:02 PM CDT Pt calling in, 12.0 weeks GA, reports vaginal itchiness and burning since yesterday. Started abx on 06/08, has 3 days left. Does report slight odor that smells like abx. Denies fever, abd pain, unusual dc, UTI sx, freq yeast infections, vag bleeding, LOF. Managed per SO. Rx sent to pharmacy. Reviewed info below. Lennie Irene is a 37 y.o. old woman with the following symptoms. If two or more symptoms present, continue with standing order: Vaginal itching and Vaginal redness and/or burning Patient has the following serious or complicating symptoms present. If any of the following symptomspresent, patient should be scheduled for a clinician visit: none : Yes-only topical treatment is recommended Allergies: Wound dressings Assessment: Yeast vaginitis Plan: Only topical treatment is recommended if patient is or status is unknown. Oral and vaginal therapies are considered equally effective. Abstain from intercourse during treatment. Miconazole 2% (Monistat) cream vaginally x 7 days. If no improvement within 5 days, schedule appointment with clinician. documented in this encounter Plan of Treatment Not on filedocumented as of this encounter Visit Diagnoses Diagnosis Yeast vaginitis - Primary Candidiasis of vulva and vagina documented in this encounter Care Teams Lunch Truck Driver Relationship Specialty Start Date End Date Radha Armendariz MD PCP - General 05/04/16 03/19/[address] [place] [address] documented as of this encounter
--- OUTSIDE RECORDS SUMMARY | 2022-04-17 15:21 | XMS_ITS | Encounter Summary ---
:1980 Author Organization [facility] Address [address] [place] [address] Care Team Providers Name Role Phone Radha Armendariz MD Primary Care Provider Reason for Referral Consult/Transfer Care (Routine) - Closed Specialty Diagnoses / Procedures Referred By Contact Refer red To Contact Diagnoses AMA (advanced maternal age) multigravida 35+, first trimester Katelyn Solomon APRN, CNP [address] [place], [place] [address] Referral ID Status Reason Start Date Expiration Date Visits Requ ested Visits Authorized [id number] Closed 05/28/2017 08/27/2018 1 1 Scheduling Instructions Your provider has recommended an appoint ment with [facility]. You may call [phone] to schedule your appoi ntment. If you prefer, a shuttle threader will contact you within the next 3 business d ays to assist you in setting up this appointment. We suggest you call your [employer] insurance company about your coverage and benefits for this appointment. rocedure/Equipment (Routine) - Incomplete Specialty Diagnoses / Procedures Referred By Contact Refer red To Contact Diagnoses AMA (advanced maternal age) multigravida 35+, first trimester Katelyn Solomon Procedures Yudy US OB Under 14 Wks ASHU Potts CNP [address] [place], [place] [address] Referral ID Status Reason Start Date Expiration Date Visits V [email or web address] Requested Authorized [id number] Incomplete 05/28/2017 08/27/2018 10 10 Reason for Visit Reason Comments INITIAL VISIT Encounter Details Date Type Department Care Team Description 05/28/2017 Initial Kely Rojas, INITIAL Obstetrics/Gynecolog Katelyn Potts APRN, Roger TUCKER y IMANI [address] [facility] [address] [place] [address] [phone] Social History Tobacco Use Types Packs/Day Years Used Date Smoking Tobacco: Former Smokeless Tobacco: Never Tobacco Cessation: Counseling Given: No Alcohol Use Standard Drinks/Week Comments No 0 (1 standard drink = 0.6 oz pure alcoho l) Sex Assigned at Date Recorded Not on file documented as of this encounter Last Filed Vital Signs Vital Sign Reading Time Taken Comments Blood Pressure 106/64 05/28/2017 3:00 PM CDT Pulse 69 05/28/2017 3:00 PM CDT Temperature - - Respiratory Rate - - Oxygen Saturation - - Inhaled Oxygen Concentration - - Weight 114.8 kg (253 lb) 05/28/2017 3:00 PM CDT Height 175.3 cm (5' 9) 05/28/2017 3:00 PM CDT Body Mass Index 37.36 05/28/2017 3:00 PM CDT documented in this encounter Patient Instructions Patient InstructionsRutTess bass MA - 05/28/2017 2:50 PM CDT Thank you for choosing [facility] for your care. We recommend you review the following information in the book Your Guide to and the additional materials you received: ?? Emotional Changes ?? Keeping Track of Your Baby's Health- Testing ?? Baby's Development ?? Caring for Yourself ?? Diet and Nutrition ?? A Family Guide to Eating Fish brochure ?? [facility] brochure ?? Additional [place] [facility] resources documented in this encounter Progress Notes Katelyn Solomon, ASHU, IMANI - 05/28/2017 2:50 PM CDT SUBJECTIVE: The patient is here for her NOB I visit with her Carlos and daughter who was 1 on 03/20/17. G/P:10/1000 LMP:03/23/17 Menstrual EDC:12/28/2017 Cycle length:30 days HCG positive: At home on:04/27/17 Circumstances of :no data Signs and symptoms of : nausea, breast tenderness, fatigue Past Medical History: Diagnosis Date ??? Anemia 03/01/2012 ??? Anxiety (HRC)-significant history of adolescent and 20's mood disorder and chemical dependency, cutting, depression. Recently started drinking again and was in treatment prior to finding out she was . Pt states she is not longer drinking or smoking. She is not on medication for mood issues. ??? Arthritis ??? Depression (HRC) 03/01/2012 ??? Heartburn ??? Irregular menstrual cycle ??? Migraines ??? Obesity (HRC) ??? Rash ??? Trauma ??? Varicella Past Surgical History: Procedure Laterality Date ??? CHOLECYSTECTOMY 2012 ??? GASTRIC BYPASS 02/2014 ??? HX APPENDECTOMY 1991 ??? OTHER SURGICAL HISTORY 2004 SI joint fusion and cage ??? WISDOM TEETH EXTRACTION 1990 Genetic screening: Genetic screening check off list was reviewed and found to be positive for AMA. Immunization History Administered Date(s) Administered ??? Flu Vac Preserv Free (3+yrs) 08/07/2008 ??? TDAP (ADACEL) 01/10/2011 ??? TDAP (BOOSTRIX) 12/31/2015 ??? Td 05/15/1997 Obstetric History T0 L1 SAB0 TAB0 Ectopic0 Multiple0 Live Births1 # Outcome Date GA Lbr Jared/2nd Weight Sex Delivery Anes PTL Lv 2 Current 1 03/20/16 6lbs 13oz F Vag-Spont Epidural N GIANA Allergies Allergen Reactions ??? Wound Dressings Rash Outpatient Prescriptions as of 05/28/2017: triamcinolone acetonide (KENALOG) 0.1 % cream Apply topically 3 times daily. Disp: 80 g Rfl: 1 valACYclovir (VALTREX) 1 G tablet Take 2 tablets by mouth 2 times daily for 1 day. Disp: 4 tablet Rfl: 0 No current facility-administered medications on file as of 05/28/2017. Family History Problem Relation Age of Onset ??? Cataract Maternal Grandfather ??? Glaucoma Maternal Grandfather ??? Parkinsons Maternal Grandfather ??? Mental Disorder Mother ??? Schizophrenia Mother ??? Depression Mother ??? Diabetes Mother ??? No Known Family HIstory Problems Father ??? Cancer Maternal Grandmother breast ??? Macular Degeneration Negative Family History ??? Retinal Detachment Negative Family History ??? Amblyopia/Strabismus Negative Family History Social History Social History ??? Marital status: Spouse name: Carlos ??? Number of children: 1 ??? 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 Smoking status: Former Smoker ??? Smokeless tobacco: Never Used ??? Alcohol use No ??? Drug use: No ??? Sexual activity: Yes Partners: Male control/ protection: None Other Topics Concern ??? Bike Helmet Yes ??? [place] Yes ??? Exercise Yes 7 days per week ??? Guns In Home No ??? Seat Belt Yes ??? Special Diet No ??? Weight Concern Yes Social History Narrative OBJECTIVE: Vital Signs:BP 106/64 Pulse 69 Ht 5' 9 (1.753 m) Wt 253 lb (114.8 kg) LMP 03/23/2017 BMI 37.36 kg/m2 Height:5' 9 (1.753 m) Weight: 253 lb (114.8 kg) Pre- weight:248 lbs BMI: Estimated body mass index is 37.36 kg/(m^2) as calculated from the following: Height as of this encounter: 5' 9 (1.753 m). Weight as of this encounter: 253 lb (114.8 kg). General: Patient alert, in NAD. HEENT: Eyes normal. Sclera clear. Mouth normal lips teeth and gums. Ears symmetrical. Neck: Supple, without thyromegaly or mass. Upper Extremities: FROM with good strength, no lesions or deformities CV:RRR without murmurs, rubs or gallops. Resp: Clear to auscultation without crackles, wheezes or distress. Abdomen: Soft, non-tender, without hepatosplenomegaly, masses, or hernias. Breasts: Symmetrical, nontender, without masses or nipple discharge Lymphatic: No neck, supraclavicular, axillary or groin lymphadenopathy. Lower Extremities: FROM, normal gait without edema, lesions, or deformity. Pelvic: External normal without lesions. Vagina reveals healthy mucosa with no vaginal or cervical lesions,no abnormal discharge or odor. A pap smear was not done. CT/GC was done. Vaginal probe revealed a 10w3d. No adenexal masses or tenderness are noted. Rectal: No external hemorrhoids or perianal fissures Skin: No lesions, warm and dry Psychiatric: Alert & oriented with normal affect and insight. Patient does not appear depressed or anxious. A positive heart beat was seen on US. CRL was 10w3d about a week a head of her dates. ASSESSMENT: NOB I after gastric bypass. Obesity Anxiety AMA PLAN: Patient was sent to the lab for blood work and urine. She will return for a NOB II visit with Dr. Fu. Labs: Initial new OB labs have been ordered and results will be released to MY CHART and reviewed at the next OB visit. health counseling and education: Pt was re oriented to TRACER LATHE SET UP OPERATOR, second issues routine OB visits, hospital call system, diet, exercise, sexual activity, and we reviewed screening tests including NIPT, quad screen and ultrasound, Tdap, one hour glucose, group B strep vaginal culture. Patient will call back should she decide to do the first trimester screen. Patient's questions and concerns were addressed. TT:30 CT: 17 documented in this encounter Plan of Treatment Scheduled Referrals Name Type Priority Associated Diagnoses Order S chedule Consult Referral Routine AMA (advanced maternal age) Ordered: 05/28/2017 multigravida 35+, first trimester documented as of this encounter Procedures Procedure Name Priority Date/Time Associated Diagnosis Comme nts CHLAMYDIA & GC (14 Routine 05/28/2017 3:59 PM AMA (advanced Re sults for this YEARS AND OLDER) CDT maternal age) procedure are in multigravida [...] ??Normal NIPT. ??Dating and 1st trimester anatomy. Wamsutter rump length is NOT consistent with dates [...] 4:20 PM CDT Patient Name: Lennie Irene ??Radar Signal Processing Engineer: Darling Sapp RDMS Patient ??GA Prior to Exam : 13w4d , Age: 10 1980, 37 y.o. ??GA by Lee jean's US: 13w5d LMP: Patient's last menstrual period [...] to maternal body habitus. Impression Katelyn Rojas APRN, CNP RAD YUDY US Chlamydia and GC STD (05/28/2017 3:59 PM CDT) [facility] Method Time Signature Chlamydia Negative Negative PN SOFT Trachomatis STD Comment: Test Performed by Underground Utility Locator Mediated Amplification CLIA Number [id number] N. gonorrhoeae STD Negative Negative PN SOFT Comment: Test Performed by Underground Utility Locator Mediated Amplification Performed at [facility], [address] ??[address] CLIA Number [id number] Source STD Cervix PN SOFT Comment: CLIA Number [id number] Specimen Anatomical Collection Method Collection Time Receive d Time (Source) Location / / Volume Laterality 05/28/2017 3:59 PM 7 6:27 CDT PM CDT Katelyn L Tiffanie Rojas LODE MINER BLASTING, LINER REPLACER LAB_1 Performing Organization Address City/[facility] Phon e Number PN SOFT [address] [place] [address] [phone] Drugs of Abuse Screen, Urine, w/ conf (05/28/2017 3:53 PM CDT) Patholo gist Method Time Signature Alcohol Urine Negative Negative [...] - 05/28/2017 7:23 PM CDT Performed at [address] [address] CLIA number [id number] Katelyn Rojas APRN, LINER REPLACER LAB_1 Performing Organization Address [facility] Phon e Number PN SOFT [address] [place] [address] Urine Culture (05/28/2017 3:53 PM CDT) Analysis Performed At Patho logist Time Signature Source Urine PN SOFT Site clean catch PN SOFT Urine Cuture No Growth 05/29/2017 PN SOFT After 1 Day 6:35 PM CDT Specimen (Source) Anatomical Collection Method Collection Time Re ceived Time Location / / Volume Laterality Urine:clean catch 05/28/2017 3:53 PM CDT Narrative PN SOFT - 05/29/2017 6:35 PM CDT Performed at [address] [address], CLIA Number [id number] Katelyn Potts Tiffanie Rojas APRN, LINER REPLACER LAB_1 Performing Organization Address [facility] Phon e Number PN SOFT [address] [place] [address] Urinalysis Routine(Micro If Pos) (05/28/2017 3:53 PM CDT) [facility] Method Time Signature Urine Type URINE:clean PN [...] U Specific 1.010 1.005 - PN SOFT Mather 1.030 Urobilinogen Negative Negative PN SOFT Urine Eu/dL Specimen Anatomical Collection Method Collection Time Receive d Time (Source) Location / / Volume Laterality Urine 05/28/2017 3:53 PM 7 3:53 CDT PM CDT Narrative PN SOFT - 05/28/2017 3:56 PM CDT Performed at [facility], [address] [place], [place] [address] [address] CLIA number [id number] Katelyn Potts Tiffanie Rojas APRN, LINER REPLACER LAB_1 Performing Organization Address [facility] Phon e Number PN SOFT [address] [place] [address] Rubella Immune Status, IgG (05/28/2017 3:50 PM CDT) [facility] Method Time Signature Rubella Immune Immune PN [...] - 05/29/2017 10:34 AM CDT Performed at [facility], [address] [place] [address] CLIA number [id number] Katelyn Rojas APRN, CNP LAB_1 Performing Organization Address [facility] Phon e Number PN SOFT [address] [place] [address] Treponema Screen (05/28/2017 3:50 PM CDT) [facility] Signature Treponema Non Reactive Non Reactive PN SOFT Screen Specimen Anatomical Collection Method Collection Time Receive d Time (Source) Location / / Volume Laterality 05/28/2017 3:50 PM 7 6:27 CDT PM CDT Narrative PN SOFT - 05/28/2017 7:48 PM CDT Performed at [address] [address] CLIA number [id number] Katelyn Rojas APRN, CNP LAB_1 Performing Organization Address [facility] Phon e Number PN SOFT [address] [place] [address] LAB HIV-1 p24 AND HIV-1/HIV-2 ANTIBODIES (05/28/2017 3:50 PM CDT) [facility] Signature HIV-1 p24 Ag Nonreactive Nonreactive PN SOFT and HIV-1/HIV-2 Ab Specimen Anatomical Collection Method Collection Time Receive d Time (Source) Location / / Volume Laterality 05/28/2017 3:50 PM 7 6:27 CDT PM CDT Narrative PN SOFT - 05/28/2017 7:08 PM CDT Performed at [address] [address] CLIA number [id number] Katelyn Rojas APRN, CNP LAB_1 Performing Organization Address [facility] Phon e Number PN SOFT [address] [place] [address] HEP B SURFACE ANTIGEN, NO REFLEX (05/28/2017 3:50 PM CDT) [facility] Signature Hep B Surf Ag Nonreactive Nonreactive PN SOFT Specimen Anatomical Collection Method Collection Time Receive d Time (Source) Location / / Volume Laterality 05/28/2017 3:50 PM 7 6:26 CDT PM CDT Narrative PN SOFT - 05/28/2017 7:09 PM CDT Performed at [facility], [address] [place] [address] CLIA number [id number] Katelyn Rojas APRN, CNP LAB_1 Performing Organization Address City/[facility]/ZIP Code Phon e Number PN SOFT [address] [place] [address] (ABNORMAL) HEMOGRAM/PLTS/DIFF (05/28/2017 3:50 PM CDT) [facility] gist Method Time Signature White Blood Cell 11.0 [...] - 05/28/2017 4:04 PM CDT Performed at [facility], [address] [place], [place] [address] [address] CLIA number [id number] Katelyn Rojas APRN, IMANI LAB_1 Performing Organization Address [facility] Phon e Number PN SOFT [address] [place] [address] Antibody Screen (05/28/2017 3:50 PM CDT) P athologist Signature Antibody Screen NEG PN SOFT Specimen Anatomical Collection Method Collection Time Receive d Time (Source) Location / / Volume Laterality 05/28/2017 3:50 PM 7 6:26 CDT PM CDT Narrative PN SOFT - 05/28/2017 8:18 PM CDT Performed at [address] [address] CLIA number [id number] Katelyn Rojas LODE MINER BLASTING, LINER REPLACER PN BLOOD BANK ORD ERS Performing Organization Address [facility] Phon e Number [facility] [address] [place] [address] HGB A1C (05/28/2017 3:50 PM CDT) athologist Signature HGB A1C 5.3 4.0 - 5.6 % PN SOFT Specimen Anatomical Collection Method Collection Time Receive d Time (Source) Location / / Volume Laterality 05/28/2017 3:50 PM 7 6:30 CDT PM CDT Narrative PN SOFT - 05/28/2017 11:38 PM CDT Performed at [address] [address] CLIA number [id number] Katelyn Rojas LODE MINER BLASTING, LINER REPLACER LAB_1 Performing Organization Address [facility] Phon e Number [address] [address] documented in this encounter Visit Diagnoses Diagnosis AMA (advanced maternal age) multigravida 35+, first trimester - Primary Screening for diabetes mellitus screening for isoimmunization Screening for blood disease Screening for unspecified disorder of bl ood and blood-forming organs Screening examination for venereal disea se Screening examination for rubella Encounter for drug screening Screening for diabetes mellitus screening for isoimmunization Screening for blood disease Screening for unspecified disorder of bl ood and blood-forming organs Screening examination for venereal disea se Screening examination for rubella AMA (advanced maternal age) multigravida 35+, first trimester Encounter for drug screening AMA (advanced maternal age) multigravida 35+, first trimester documented in this encounter Care Teams Manufacturing Process Technician Relationship Specialty Start Date End Date Radha Armendariz MD PCP - General 05/04/16 03/19/[address] [place] [address] documented as of this encounter
--- OUTSIDE RECORDS SUMMARY | 2022-04-17 15:21 | XMS_ITS | Encounter Summary ---
:1980 Author Organization [facility] Address [address] [place] [address] Care Team Providers Name Role Phone Anny Daily Sven WAKEFIELD CNP Primary Care Provider [phone] Reason for Visit Reason Comments Routine Visit Encounter Details Date Type Department Care Team Description 02/25/2016 Routine Lin [address]15 Nevaeh Aldana Routine Obstetrics/Gynecolog MD Charles Visit y [address] [place] [address] [phone] Social History Tobacco Use Types Packs/Day Years Used Date Smoking Tobacco: Never Assessed Sex Assigned at Date Recorded Not on file documented as of this encounter Last Filed Vital Signs Vital Sign Reading Time Taken Comments Blood Pressure 108/58 02/25/2016 10:40 AM CDT Pulse - - Temperature - - Respiratory Rate - - Oxygen Saturation - - Inhaled Oxygen Concentration - - Weight 99.8 kg (220 lb) 02/25/2016 10:40 AM CDT Height - - Body Mass Index 32.49 09/13/2015 1:17 PM ALL AROUND PRESSER documented in this encounter Patient Instructions Patient InstructionsZofia Marin LPN - 02/25/2016 10:41 AM CDT Thank you for choosing [facility] care. We recommend you review the following information in the book Preparing for Childbirth: ?? Circumcision information (if appropriate) ?? True Labor vs. False Labor ?? Repeat / Planned Section () preparation and recover tips Pack your books in your labor bag and bring to the hospital at your time of delivery. Your care teammay refer to helpful topics during your hospital stay. As a small gift of our appreciation for trusting your care to [facility], please accept Little renewable energy division manager-a health director franchise sales. This fun deck of cards, full of bite sized health information, can help guide you in the days, weeks and months following childbirth. documented in this encounter Progress Notes Nevaeh Aldana MD - 02/25/2016 11:02 AM CDT Addended by: NEVAEH ALDANA on: 02/25/2016 11:02 AM Modules accepted: Orders, SmartSet AROUND PRESSER Nevaeh Aldana MD - 02/25/2016 10:59 AM CDT Ultrasound: Bedside Ultrasound performed for presentation. Presentation - vertex, spine on maternal right side. heart motion seen. Movement - Positive No complaints. BH contractions. GBS of Vagina F/U in 1 week documented in this encounter Plan of Treatment Not on filedocumented as of this encounter Procedures Procedure Name Priority Date/Time Associated Diagnosis Comme nts GROUP B STREP Routine 02/25/2016 11:02 screening Res ults for this SCREEN (OB PTS) AM CDT for streptococcus B proce dure are in the results section. documented in this encounter Results (ABNORMAL) Group B Strep Screen (OB Pts) (02/25/2016 11:02 AM CDT) [facility] Method Time Signature Source Vag/Rec HP CONVERSION Site HP CONVERSION Culture Strep Strep Group B HP CONVERSIO N Screen Other Positive (A) Source Culture Strep This is HP CONVERSION Screen Other considered a Source significant result. Clinical (A) Culture Strep correlation is HP CONVERSI ON Screen Other indicated. (A) Source Culture Strep Strep Group B HP CONVERSIO N Screen Other Positive (A) Source Specimen (Source) Anatomical Collection Method Collection Time Re ceived Time Location / / Volume Laterality Vag/Rec: 02/25/2016 11:02 AM CDT Narrative HP CONVERSION - 02/27/2016 11:38 AM CDT Performed at [facility], [address] [place] [address], CLIA Number [id number] Nevaeh Aldana MD LAB_1 Performing Organization Address City/State/ZIP Code Phon e Number HP CONVERSION documented in this encounter Visit Diagnoses Diagnosis AMA (advanced maternal age) primigravida 35+, third trimester - Primary Previous gastric bypass affecting pregna ncy, antepartum screening for streptococcus B screening for Streptococcus B documented in this encounter Care Teams Asphalt Paving Foreman Relationship Specialty Start Date End Date Anny Daily APRN, SKIVER HAND PCP - General 12/16/13 8 [address] [place] [address] [address] documented as of this encounter
--- OUTSIDE RECORDS SUMMARY | 2022-04-17 15:21 | XMS_ITS | Encounter Summary ---
:1980 Author Organization [facility] Address [address] [place] [address] Care Team Providers Name Role Phone Anny Daily Sven [place]KE[place] CNP Primary Care Provider [phone] Reason for Visit Reason Comments Routine Visit Encounter Details Date Type Department Care Team Description 12/31/2015 Routine Lin 1515 Merlin Kim Routine Obstetrics/Gynecolog MD Charles Visit y [address] [place] [address] [phone] Social History Tobacco Use Types Packs/Day Years Used Date Smoking Tobacco: Never Assessed Sex Assigned at Date Recorded Not on file documented as of this encounter Last Filed Vital Signs Vital Sign Reading Time Taken Comments Blood Pressure 106/58 12/31/2015 9:19 AM CDT Pulse - - Temperature - - Respiratory Rate - - Oxygen Saturation - - Inhaled Oxygen Concentration - - Weight 97.9 kg (215 lb 12.8 oz) 12/31/2015 9:19 AM CDT Height - - Body Mass Index 31.87 09/13/2015 1:17 PM TIME STAMP ASSEMBLER documented in this encounter Progress Notes Merlin Kim MD - 12/31/2015 10:13 AM CDT Saw Mental Health 12/20/2015 - on no meds at this time. Will order fasting glc and [address] of a 1 Hr Glc Screen. Will recheck Iron, Folate, Ca, Vit B12 and Homocystine. Discussed weight gain. Movement - Positive No complaints. F/U in 2 weeks documented in this encounter Plan of Treatment Not on filedocumented as of this encounter Visit Diagnoses Diagnosis AMA (advanced maternal age) primigravida 35+, third trimester - Primary Previous gastric bypass affecting pregna ncy, antepartum Need for Tdap vaccination Need for prophylactic vaccination with c ombined lgrwzoiwtz-knhewdz-jxweqosoo (DTP) vaccine documented in this encounter Care Teams Trouble Tracer Relationship Specialty Start Date End Date Anny Daily, DIELECTRIC TESTER, BENCH LATHE OPERATOR PCP - General 12/16/13 04/09/16 [address] [place] [address] documented as of this encounter
--- OUTSIDE RECORDS SUMMARY | 2022-04-17 15:21 | XMS_ITS | Encounter Summary ---
:1980 Author Organization [facility] Address [address] [place] [address] Care Team Providers Name Role Phone Anny Daily Sven WAKEFIELD, IMANI Primary Care Provider [phone] Reason for Visit Reason Comments INITIAL VISIT Encounter Details Date Type Department Care Team Description 08/19/2015 Initial Lin 1515 Nevaeh Aldana INITIAL Obstetrics/Gynecolog MD Charles VISIT y [address] [place] [address] [phone] Social History Tobacco Use Types Packs/Day Years Used Date Smoking Tobacco: Never Assessed Sex Assigned at Date Recorded Not on file documented as of this encounter Last Filed Vital Signs Vital Sign Reading Time Taken Comments Blood Pressure 92/58 08/19/2015 9:33 AM AU PAIR Pulse 72 08/19/2015 9:33 AM AU PAIR Temperature - - Respiratory Rate - - Oxygen Saturation - - Inhaled Oxygen Concentration - - Weight 85.6 kg (188 lb 11.2 oz) 08/19/2015 9:33 AM AU PAIR Height 175.3 cm (5' 9) 08/19/2015 9:33 AM AU PAIR Body Mass Index 27.87 08/19/2015 9:33 AM AU PAIR documented in this encounter Progress Notes Nevaeh Aldana MD - 08/20/2015 3:22 PM AU PAIR Addended by: NEVAEH ALDANA on: 08/20/2015 03:22 PM Modules accepted: Orders PAIR Nevaeh Aldana MD - 08/20/2015 9:22 AM CST NEW OB HISTORY AND PHYSICAL HPI: The patient is a 35-year-old female, , LMP:06/12/2015 FAHAD established by early ultrasound, consistent with LMP. Seen 08/10/2015 for vaginal bleeding. No bleeding for last few days. Pathology - blood clot, discussed with patient. She presents for a new OB history and physical. Prior to conception, she had cycles every 28 days. Currently, she is complaining of nothing. History of Gastric Bypass - 02/2014 Obstetric History T0 TAB0 SAB0 E0 M0 L0 # Outcome Date GA Lbr Jared/2nd Weight Sex Delivery Anes PTL Lv 1 Current Past Medical History Diagnosis Date ??? Depression 03/01/2012 ??? Anemia 03/01/2012 ??? Anxiety ([facility]) ??? Arthritis ??? Heartburn ??? Irregular menstrual cycle ??? Obesity ([facility]) ??? Varicella ??? Rash Past Surgical History Procedure Laterality Date ??? Hx appendectomy 1991 ??? Cholecystectomy 2012 ??? Other surgical history 2003 SI joint fusion and cage ??? Gastric bypass surgery 02/2014 ??? [place] tooth extraction 1990 Family History Problem Relation Age of Onset ??? Cataracts Maternal Grandfather ??? Glaucoma Maternal Grandfather ??? Parkinsons Maternal Grandfather ??? Diabetes Neg Hx ??? Macular Degen Neg Hx ??? Retinal Detachment Neg Hx ??? Strabismus Neg Hx ??? Mental Illness Mother ??? Schizophrenia Mother ??? Depression Mother ??? No Known Family History Problems Father ??? Cancer Maternal Grandmother breast Allergies: Allergies Allergen Reactions ??? Adhesive Tape-Silicones Rash History Social History ??? Marital Status: Significant Other/Partner Spouse Name: Carlos Number of Children: 0 ??? 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 Smoking status: Former Smoker ??? Smokeless tobacco: Never Used ??? Alcohol Use: No Comment: ; ??? Drug Use: No ??? Sexual Activity: Partners: Male Control/ Protection: None Other Topics Concern ??? Bike Helmet No ??? City Water Yes ??? Exercise Yes 7 days per week ??? Guns In Home No ??? Seat Belt Yes ??? Special Diet Yes ??? Weight Concern No Social History Narrative GENETIC SCREEN/TERATOLOGY COUNSELING: Reviewed and offered testing including first trimester screen, quad screen and cystic fibrosis testing. REVIEW OF SYSTEMS: See HPI. PHYSICAL EXAM: Filed Vitals: 08/19/15 0933 BP: 92/58 Pulse: 72 Height: 5' 9 (1.753 m) Weight: 188 lb 11.2 oz (85.594 kg) Body mass index is 27.85 kg/(m^2). GENERAL: 35 YOF in NAD, alert and oriented x 3 NECK: Supple. No thyromegaly or adenopathy. CARDIOVASCULAR: Regular rate and rhythm, no murmurs. LUNGS: Clear to auscultation, bilaterally. BACK: Spine straight, no CVA tenderness BREASTS: Symmetric bilaterally, no masses bilaterally, no discharge bilaterally ABDOMEN: Soft. Non distended. Non tender. PELVIC: External Genitalia - WNL BUS - no infection Vagina - clear, no lesions, brown discharge Cervix - GC, Chlamydia, closed Uterus - soft, anterior, 10 week size, non tender Adnexa - clear bilaterally FHT's - not heard with doppler EXTREMITIES: Show no peripheral edema. DTR's - 2+/4+ Brief bedside ultrasound performed, confirming the presence of a viable intrauterine . heartbeat and motion seen. IMPRESSION: 35-year-old female , female here for new OB history and physical. AMA History of Gastric Bypass Surgery First Trimester Vaginal Bleeding - probably resolved PLAN: 1. New OB labs - ordered 2. Ultrasound for dating - done 3. Discussed routine care, as well as labor and delivery coverage and schedule of appointments. 4. Discussed routine blood tests, as well as optional tests, including cystic fibrosis, First Trimester Screening, and maternal quad screening. 5. Routine counseling done including diet, exercise, seat belts, [facility] and contact numbers for problems and concerns. 6. First Trimester Screen, Level II Ultrasound 7. Consultation with barber - encourage fluid intake and increase protein 8. Patient to return in 4 weeks for next visit. Call if any questions or concerns. Nevaeh Aldana MD 9:13 AM 08/20/2015 Total Time: 25 minutes Counseling Time: 15 minutes PAIR documented in this encounter Plan of Treatment Not on filedocumented as of this encounter Procedures Procedure Name Priority Date/Time Associated Diagnosis Comme nts CHLAMYDIA & GC (14 Routine 08/19/2015 10:15 AM Screening Re sults for this YEARS AND OLDER) AU PAIR examination for procedur e are in venereal disease the results section. documented in this encounter Results Chlamydia & GC (08/19/2015 10:15 AM AU PAIR) [facility] gist Method Time Signature Chlamydia Negative Negative HP CONVERSION Trachomatis STD Comment: Test Performed by Pot Pusher Mediated Amplification CLIA Number [id number] N. gonorrhoeae STD Negative Negative HP CONVERSI ON Comment: Test Performed by [employer] Ampl[employer] Performed at [facility], [address] [place] [id number] CLIA Number [id number] Source STD Cervix HP CONVERSION Comment: CLIA Number [id number] Specimen Anatomical Collection Method Collection Time Receive d Time (Source) Location / / Volume Laterality 08/19/2015 10:15 08/19/2015 AM AU PAIR 10:08 PM AU PAIR Nevaeh Aldana MD LAB_1 Performing Organization Address City/State/ZIP Code Phon e Number HP CONVERSION documented in this encounter Visit Diagnoses Diagnosis AMA (advanced maternal age) primigravida 35+, unspecified trimester - Primary Screening for diabetes mellitus Screening examination for venereal disea se Screening examination for rubella Previous gastric bypass affecting pregna ncy, antepartum UTI in , first trimester documented in this encounter Care Teams Construction Stonemason Relationship Specialty Start Date End Date Anny Daily, HOME THERAPY CLINICIAN, AOC PLANS INTELLIGENCE OFFICER CHIEF PCP - General 12/16/13 04/09/16 [address] [place] [id number] documented as of this encounter
--- OUTSIDE RECORDS SUMMARY | 2022-04-17 15:21 | XMS_ITS | Encounter Summary ---
:1980 Author Organization [facility] Address [address] [place] [address] Care Team Providers Name Role Phone KillianAnny APRN, TABBER Primary Care Provider [phone] Reason for Referral Specialty Diagnoses / Procedures Referred By Contact Refer red To Contact Merlin Kim MD [address] [facility] [address] [place] [address] Referral ID Status Reason Start Date Expiration Date Visits Requ ested Visits Authorized ETING PROFESSOR Reason for Visit Reason Comments Nutrition Counseling Encounter Details Date Type Department Care Team Description 09/13/2015 Initial Consult [place] [facility] Honey Prieto, Previous gastric [address] [place] RDN, LD bypass affecting [address] [facility] , [place] [address] S antepartum [phone] [place] [address] Social History Tobacco Use Types Packs/Day Years Used Date Smoking Tobacco: Never Assessed Sex Assigned at Date Recorded Not on file documented as of this encounter Last Filed Vital Signs Vital Sign Reading Time Taken Comments Blood Pressure - - Pulse - - Temperature - - Respiratory Rate - - Oxygen Saturation - - Inhaled Oxygen Concentration - - Weight 88.9 kg (196 lb) 09/13/2015 1:17 PM MARKETING PROFESSOR Height 175.3 cm (5' 9) 09/13/2015 1:17 PM MARKETING PROFESSOR Body Mass Index 28.94 09/13/2015 1:17 PM MARKETING PROFESSOR documented in this encounter Progress Notes Honey Prieto, RD - 09/13/2015 4:05 PM CST [facility] Medical Nutrition Therapy Consult ASSESSMENT Referring Provider: Merlin Kim MD Ht: 1.753 m (5' 9) Wt: 88.905 kg (196 lb) BMI: Body mass index is 28.93 kg/(m^2). Social History: . working rn review, pt had RNY gastric bypass 02/2014 and is now 13 weeks . She is very excited about the because she thought she could not get . nervous about getting proper nutrition for her baby. She has had nausea and feels that she is eating more carbs than normal, struggles with protein because it makes her more nauseous. She is taking , vitamin D, calcium and stopped B12 because her blood levels were high. Patient appears highly motivated to change Diet History: Breakfast: granola Fairlife milk, 3/4 cup granola Snack: yogurt- moldovan, rice cakes Lunch: alejandre and cheese burrito, turkey roll up Snack: chocolate, candy bar, nuts Dinner: 1/2 can vegetarian chili, beans and rice, salad Snack: none reported Beverages: water, some dory eric Meal habits: at home Exercise: Patient is not engaging in physical activity: not since beginning of DIAGNOSIS: Nutrition Diagnosis: Inadequate protein intake (NI 5.7.1). related to nausea, malabsorption and altered intake as a result of RNY as evidenced by pt report INTERVENTION Medical Nutrition Therapy provided, including education and counseling on the following topics: Healthy Diet and Meal planning. Lean protein sources. My Plate. MONITORING AND EVALUATION Patient Goals for Behavior Change: 1. switch B12 supplement to 1000 mcg, once per week. 2. try adding whey isolate protein powder- 20 gm per day . 3. add protein source to carbs (i.e. peanut butter on rice cake) or higher quality carbs- fruits and whole grains. 4. goal is 70 grams protein daily. Follow up Plan: Future areas of discussion: exercise, protein, fruits and vegetables. Follow up with RD: as needed. Time: 45 minutes Thank you for this referral ETING PROFESSOR documented in this encounter Plan of Treatment Scheduled Referrals Name Type Priority Associated Diagnoses Order S chedule Nutrition/Dietitian Referral Routine Previous gastric bypa ss Ordered: 09/13/2015, affecting , Expires : 09/13/2015 antepartum documented as of this encounter Visit Diagnoses Diagnosis Previous gastric bypass affecting pregna ncy, antepartum documented in this encounter Care Teams Tool Room Lathe Operator Relationship Specialty Start Date End Date Anny Daily, PHP CONSULTANT, TABBER PCP - General 12/16/13 04/09/[address] [place] [id number] documented as of this encounter
--- OUTSIDE RECORDS SUMMARY | 2022-04-17 15:21 | XMS_ITS | Encounter Summary ---
:1980 Author Organization [facility] Address [address] [place] [address] Care Team Providers Name Role Phone Anny Daily APRN, IMANI Primary Care Provider [phone] Encounter Details Date Type Department Care Team Description 10/07/2015 Lab Visit [facility] AMA (advanced maternal age) [address] [facility] . primigravida 35+, second [place] [address] trimester [phone] Social History Tobacco Use Types Packs/Day Years Used Date Smoking Tobacco: Never Assessed Sex Assigned at Date Recorded Not on file documented as of this encounter Plan of Treatment Not on filedocumented as of this encounter Procedures Procedure Name Priority Date/Time Associated Diagnosis Comme nts URINE CULTURE Routine 10/07/2015 10:21 AMA (advanced Results f or this AM MATERIAL ASSEMBLER maternal age) procedure are in primigravida 35+, the result s second trimester section. MATERNAL SCREEN AFP Routine 10/07/2015 10:10 AMA (advanced Res ults for this AM MATERIAL ASSEMBLER maternal age) procedure are in primigravida 35+, the result s second trimester section. MAFP QUESTIONS Routine 10/07/2015 10:10 AMA (advanced Results for this AM MATERIAL ASSEMBLER maternal age) procedure are in primigravida 35+, the result s second trimester section. documented in this encounter Results Urine Culture (10/07/2015 10:21 AM MATERIAL ASSEMBLER) [facility] Method Time Signature Source Urine HP CONVERSION Site clean catch HP CONVERSION Urine Culture No Growth HP CONVERSION After 1 Day Specimen (Source) Anatomical Collection Method Collection Time Re ceived Time Location / / Volume Laterality Urine:clean catch 10/07/2015 10:21 AM MATERIAL ASSEMBLER Narrative HP CONVERSION - 10/08/2015 2:46 PM MATERIAL ASSEMBLER Performed at [facility], [address] [place] [address], CLIA Number [id number] Merlin Kim MD LAB_1 Performing Organization Address [facility] Phon e Number HP CONVERSION MATERNAL SCREEN AFP (10/07/2015 10:10 AM MATERIAL ASSEMBLER) [facility] Method Time Signature AFP, Maternal 19.5 ng/mL HP CONVERSION MoM For AFP 0.55 HP CONVERSION AFP, MoM see below HP CONVERSION Cutoff Int Comment: Maternal AFP MoM Reference Rang e = 0.20 - 2.50 Risk Assessment See Note HP CONVERSION Comment: Risk of OSB: The risk based on AFP and family history is 1:48835. (The population risk is less than 1:1000). MAFP Interpretation see below HP CONVERS ION Comment: The maternal serum AFP result is NOT elzbieta vated for a of this gestational age. The risk of an open neural tube defect is less than the screening cut-of f. Interpretation See Note HP CONVERSION Comment: Screen NEGATIVE for Open Spina Bifida. Specimen Anatomical Collection Method Collection Time Receive d Time (Source) Location / / Volume Laterality 10/07/2015 10:10 10/07/2015 3:12 AM MATERIAL ASSEMBLER PM MATERIAL ASSEMBLER Narrative HP CONVERSION - 10/08/2015 2:04 PM MATERIAL ASSEMBLER Performed at [address] [address] CLIA number [id number] Merlin Kim MD LAB_1 Performing Organization Address [facility] Phon e Number HP CONVERSION MAFP QUESTIONS (10/07/2015 10:10 AM MATERIAL ASSEMBLER) [facility] Method Time Signature Maternal Weight 199 lbs HP CONVERSION Type Of Single HP CONVERSION Race Non-Black HP CONVERSION Insulin No HP CONVERSION Dependent Diabetic? Family History No HP CONVERSION Of Neural Tube Disorders Smoker? No HP CONVERSION Gestational Age 16w5d HP CONVERSION Comment: 16 weeks 5 days from LMP of 06/17 Ultrasound Date 20,151,127 HP CONVERSION ULTRASOUND WEEKS GEST 6 Weeks HP CONVE RSION ULTRASOUND DAYS 5 Days HP CONVERSION Last Menstrual Period Date ,151,010 HP CONVERSION EST DATE OF DELIVERY ,160,716 HP CONVE RSION Specimen Anatomical Collection Method Collection Time Receive d Time (Source) Location / / Volume Laterality 10/07/2015 10:10 10/07/2015 3:12 AM MATERIAL ASSEMBLER PM MATERIAL ASSEMBLER Narrative HP CONVERSION - 10/08/2015 2:04 PM MATERIAL ASSEMBLER Performed at [facility], [facility] [place] [address] CLIA number [id number] Merlin Kim MD LAB_1 Performing Organization Address City/State/ZIP Code Phon e Number HP CONVERSION documented in this encounter Visit Diagnoses Diagnosis AMA (advanced maternal age) primigravida 35+, second trimester documented in this encounter Care Teams Guest House Manager Relationship Specialty Start Date End Date Anny Daily, ASHU, ORTHOTICS PROSTHETICS TECHNICIAN PCP - General 12/16/13 04/09/16 [address] [place] [id number] documented as of this encounter
--- OUTSIDE RECORDS SUMMARY | 2022-04-17 15:21 | XMS_ITS | Encounter Summary ---
:1980 Author Organization [facility] Address [address] [place] [address] Care Team Providers Name Role Phone Anny Daily Sven WAKEFIELD CNP Primary Care Provider Reason for Visit Reason Comments Routine Visit Encounter Details Date Type Department Care Team Description 09/16/2015 Routine Lin 1515 Merlin Kim Routine Obstetrics/Gynecolog MD Charles Visit y [address] [place] [address] [phone] Social History Tobacco Use Types Packs/Day Years Used Date Smoking Tobacco: Never Assessed Sex Assigned at Date Recorded Not on file documented as of this encounter Last Filed Vital Signs Vital Sign Reading Time Taken Comments Blood Pressure 104/52 09/16/2015 9:17 AM INTERNET MARKETING SPECIALIST Pulse - - Temperature - - Respiratory Rate - - Oxygen Saturation - - Inhaled Oxygen Concentration - - Weight 89.6 kg (197 lb 9.6 oz) 09/16/2015 9:17 AM INTERNET MARKETING SPECIALIST Height - - Body Mass Index 29.18 09/13/2015 1:17 PM INTERNET MARKETING SPECIALIST documented in this encounter Patient Instructions Patient InstructionsScheffertNatalia LPN - 09/16/2015 9:18 AM CST Thank you for choosing [facility] for your care. We recommend you review the following information in the book Your Guide to : ?? Emotional Changes ?? Baby's Development ?? Caring for Yourself RNET MARKETING SPECIALIST documented in this encounter Progress Notes Merlin Kim MD - 09/16/2015 9:41 AM CST 1st Trimester Screen 09/09/2015. Met with horseradish grinder on 09/13/2015. Concern about anxiety, she cares for schizophrenic mother - refer to Mental Health.. No vaginal bleeding. Discussed labs. MSAFP in 3 weeks. Re culture urine at next visit. F/U in 3 weeks RNET MARKETING SPECIALIST documented in this encounter Plan of Treatment Not on filedocumented as of this encounter Visit Diagnoses Diagnosis AMA (advanced maternal age) primigravida 35+, first trimester - Primary Previous gastric bypass affecting pregna ncy, antepartum documented in this encounter Care Teams Shrimp Trawler Relationship Specialty Start Date End Date Anny Daily, PAYING TELLER, BIOINFORMATICS SCIENTIST PCP - General 12/16/13 04/09/16 [address] [place] [id number] documented as of this encounter
--- OUTSIDE RECORDS SUMMARY | 2022-04-17 15:21 | XMS_ITS | Encounter Summary ---
:1980 Author Organization [facility] Address [address] [place] [address] Care Team Providers Name Role Phone Anny Daily Sven WAKEFIELD CNP Primary Care Provider [phone] Reason for Visit Reason Comments Routine Visit Encounter Details Date Type Department Care Team Description 11/05/2015 Routine Lin 1515 Merlin Kim Routine Obstetrics/Gynecolog MD Charles Visit y [address] [place] [address] [phone] Social History Tobacco Use Types Packs/Day Years Used Date Smoking Tobacco: Never Assessed Sex Assigned at Date Recorded Not on file documented as of this encounter Last Filed Vital Signs Vital Sign Reading Time Taken Comments Blood Pressure 112/58 11/05/2015 9:10 AM HOME DECORATOR Pulse - - Temperature - - Respiratory Rate - - Oxygen Saturation - - Inhaled Oxygen Concentration - - Weight 93.6 kg (206 lb 4.8 oz) 11/05/2015 9:10 AM HOME DECORATOR Height - - Body Mass Index 30.47 09/13/2015 1:17 PM HOME DECORATOR documented in this encounter Progress Notes Merlin Kim MD - 11/05/2015 9:32 AM CST Level II Ultrasound Normal. Discussed MSAFP and urine culture. Has appointment in Mental Health. Discussed weight gain. Did have one episode of spotting after a 2 mile walk. Movement - Positive No complaints. Going to [place] next week for vacation. F/U in 4 weeks DECORATOR documented in this encounter Plan of Treatment Not on filedocumented as of this encounter Visit Diagnoses Diagnosis AMA (advanced maternal age) primigravida 35+, second trimester - Primary Previous gastric bypass affecting pregna ncy, antepartum documented in this encounter Care Teams Casing Finisher And Stuffer Relationship Specialty Start Date End Date Anny Daily, RES COUNSELOR, SANITARY LANDFILL OPERATOR PCP - General 12/16/13 04/09/16 [address] [place] [id number] documented as of this encounter
--- OUTSIDE RECORDS SUMMARY | 2022-04-17 15:21 | XMS_ITS | Encounter Summary ---
:1980 [facility] Address [address] [place] [address] Care Team Providers Name Role Phone Radha Armendariz MD Primary Care Provider Reason for Visit Reason Comments Rash Encounter Details Date Type Department Care Team Description 04/10/2016 Office Visit [facility] Radha Armendariz, Derm atitis (Primary Medicine MD Dx) [address] [facility] [address] [facility] [address] [place] [address] [place], [place] [phone] [id number] Social History Tobacco Use Types Packs/Day Years Used Date Smoking Tobacco: Never Assessed Sex Assigned at Date Recorded Not on file documented as of this encounter Last Filed Vital Signs Vital Sign Reading Time Taken Comments Blood Pressure 100/58 04/10/2016 3:28 PM CDT Pulse 74 04/10/2016 3:28 PM CDT Temperature - - Respiratory Rate - - Oxygen Saturation - - Inhaled Oxygen Concentration - - Weight 95.7 kg (211 lb) 04/10/2016 3:28 PM CDT Height - - Body Mass Index 31.16 09/13/2015 1:17 PM DIRECTOR OF TRAINING documented in this encounter Progress Notes Radha Armendariz MD - 04/10/2016 3:42 PM CDT Clinic [facility] Date of Encounter: 04/10/2016 SUBJECTIVE: Lennie is here today for valuation of a rash on her breasts. She gave to her daughter 3 weeks ago, and is doing a lot of breastmilk pumping and hand expression because her daughter does not latch and nurse very well. A week ago she started to notice some irritation on the skin of her left breast,and now she has a similar appearance to the skin on her right breast. She would like to be sure there is no infection present. The rashes itch, but are not spreading. They are only present in the areaswhere she compresses the breast during expression. Social History: Social History Substance Use Topics ??? Smoking status: Former Smoker ??? Smokeless tobacco: Never Used ??? Alcohol Use: No Adverse Drug Reactions: Adhesive tape-silicones Medications: Outpatient Prescriptions Prior to Visit Medication Sig Dispense Refill ??? ascorbic acid (VITAMIN C) 500 mg tablet Take 500 mg by mouth daily (every 24 hours). Indications: takes 600mg daily-chewable tab ??? CALCIUM PHOSPHATE TRIB/VIT D3 (CITRACAL + D ORAL) Take by mouth. ??? cholecalciferol (VITAMIN D3) 1,000 unit Tab Take 1,000 Units by mouth daily (every 24 hours). ??? ferrous sulfate 325 mg (65 mg iron) EC tablet Take 325 mg by mouth daily (every 24 hours). ??? lansoprazole (PREVACID) 30 mg capsule Take 30 mg by mouth daily (every 24 hours). Take before meals ??? PNV NO.115/IRON FUMARATE/FA ( #[id number] ACID ORAL) Take by mouth. ??? valACYclovir (VALTREX) 1 g tablet Take 2 tablets by mouth 2 times daily for 1 day. 4 tablet 0 ??? Vitamins B1 B6 B12 Liqd Take by mouth. No facility-administered medications prior to visit. OBJECTIVE: Vital Signs: Blood pressure 100/58, pulse 74, weight 211 lb (95.709 kg), last menstrual period 06/12/2015, unknown if currently . General: Alert, in no acute distress. Examination of the breasts shows symmetric distribution of an erythematous maculopapular rash with alittle bit of a follicular appearance, but the erythema is mild and not suggestive of folliculitis. There are no pustules present. The rash involves the outer aspect of both breasts both in the upper and lower quadrants consistent with the pressure points when she expresses. ASSESSMENT: Dermatitis. PLAN: I suspect the rash is related to friction from milk expression, and the follicular pattern may be the result of traction on the fine hairs in the skin of the breast. We will treat with triamcinolone 0.1% cream applied 2-3 times daily as needed until the rash resolves, we also discussed using a lubricating oil such as mineral oil or, since her baby does not nurse, on oil or something similar to provide some skin protection, friction reduction, and also moisture to the affected skin. She is interestedin giving this a try. She is comfortable with this plan and will follow-up as needed if the problem persists. This document was prepared using dictation software and may contain typographical errors. *SH~DNS~mySOAP documented in this encounter Plan of Treatment Not on filedocumented as of this encounter Visit Diagnoses Diagnosis Dermatitis - Primary Contact dermatitis and other eczema, due to unspecified cause documented in this encounter Care Teams Cellular Equipment Repairer Relationship Specialty Start Date End Date Radha Armendariz MD PCP - General 04/10/16 05/03/[address] [place] [address] documented as of this encounter
--- OUTSIDE RECORDS SUMMARY | 2022-04-17 15:21 | XMS_ITS | Encounter Summary ---
:1980 Author Organization [facility] Address [address] [place] [address] Care Team Providers Name Role Phone Anny Daily APRN, IMANI Primary Care Provider [phone] Encounter Details Date Type Department Care Team Description 01/05/2016 Lab Visit [place] [facility] AMA (advanced maternal age) primigravida 35+, third trimester; [address] Previous gastric bypass affe cting , antepartum [place], [place] [address] Social History Tobacco Use Types Packs/Day Years Used Date Smoking Tobacco: Never Assessed Sex Assigned at Date Recorded Not on file documented as of this encounter Plan of Treatment Not on filedocumented as of this encounter Procedures Procedure Name Priority Date/Time Associated Diagnosis Comme nts GLUCOSE Routine 01/05/2016 2:23 PM AMA (advanced Results for this CDT maternal age) procedure are in primigravida 35+, the result s third trimester section. GLUCOSE Routine 01/05/2016 10:10 AMA (advanced Results fo r this AM CDT maternal age) procedure are in primigravida 35+, the result s third trimester section. HOMOCYSTEINE Routine 01/05/2016 10:10 Previous gastric Results for this AM CDT bypass affecting procedure a re in , the results antepartum section. IRON (NO IBC OR SAT) Routine 01/05/2016 10:10 Previous gastric Results for this AM CDT bypass affecting procedure a re in , the results antepartum section. HEMOGLOBIN, BLOOD Routine 01/05/2016 10:10 AMA (advanced Resul ts for this AM CDT maternal age) procedure are in primigravida 35+, the result s third trimester section. HGB A1C Routine 01/05/2016 10:10 AMA (advanced Results fo r this AM CDT maternal age) procedure are in primigravida 35+, the result s third trimester section. FOLATE ONLY (4HR FAST Routine 01/05/2016 10:10 Previous gastri c Results for this RECOMMENDED) AM CDT bypass affecting procedure a re in , the results antepartum section. VITAMIN B12 ONLY Routine 01/05/2016 10:10 Previous gastric Res ults for this AM CDT bypass affecting procedure a re in , the results antepartum section. CALCIUM Routine 01/05/2016 10:10 Previous gastric Results for this AM CDT bypass affecting procedure a re in , the results antepartum section. documented in this encounter Results Glucose - Random < 8Hr Fasting (01/05/2016 2:23 PM CDT) athologist Signature Glucose Non 83 70 - 180 HP CONVERSION Fasting mg/dL Specimen Anatomical Collection Method Collection Time Receive d Time (Source) Location / / Volume Laterality 01/05/2016 2:23 PM 6 4:20 CDT PM CDT Narrative HP CONVERSION - 01/05/2016 6:25 PM CDT Performed at [facility], [address] [place] [address] CLIA number [id number] Merlin Kim MD LAB_1 Performing Organization Address City/State/ZIP Code Phon e Number HP CONVERSION (ABNORMAL) Homocysteine (01/05/2016 10:10 AM CDT) [facility] gist Method Time Signature Homocysteine 1.7 (L) 5.0 - HP CONVERSION Plasma 15.4 umol/L Specimen Anatomical Collection Method Collection Time Receive d Time (Source) Location / / Volume Laterality 01/05/2016 10:10 01/05/2016 6:53 AM CDT PM CDT Narrative HP CONVERSION - 01/05/2016 8:21 PM CDT Performed at [facility], [address] [place] [address] CLIA number [id number] Merlin Kim MD LAB_1 Performing Organization Address City/[facility] Code Phon e Number HP CONVERSION B12 Only (01/05/2016 10:10 AM CDT) athologist Signature Vitamin B12 717 213 - 816 HP CONVERSION pg/dL Specimen Anatomical Collection Method Collection Time Receive d Time (Source) Location / / Volume Laterality 01/05/2016 10:10 01/05/2016 1:54 AM CDT PM CDT Narrative HP CONVERSION - 01/05/2016 3:13 PM CDT Performed at [facility], [address] [place] [address] CLIA number [id number] Merlin Kim MD LAB_1 Performing Organization Address City/[facility] Phon e Number HP CONVERSION Calcium (01/05/2016 10:10 AM CDT) athologist Signature Calcium 8.8 8.4 - 10.2 HP CONVERSION mg/dL Specimen Anatomical Collection Method Collection Time Receive d Time (Source) Location / / Volume Laterality 01/05/2016 10:10 01/05/2016 2:13 AM CDT PM CDT Narrative HP CONVERSION - 01/05/2016 4:17 PM CDT Performed at [facility], [address] [place] [address] CLIA number [id number] Merlin Kim MD LAB_1 Performing Organization Address City/[facility] Phon e Number HP CONVERSION Folate Only (4Hr Fast Recommended) (01/05/2016 10:10 AM CDT) athologist Signature Serum Folate 14.0 7.0 - HP CONVERSION 9,999.9 ng/mL Specimen Anatomical Collection Method Collection Time Receive d Time (Source) Location / / Volume Laterality 01/05/2016 10:10 01/05/2016 1:54 AM CDT PM CDT Narrative HP CONVERSION - 01/05/2016 3:13 PM CDT Performed at [facility], [address] [place], [place] [id number] CLIA number [id number] eMrlin Kmi MD LAB_1 Performing Organization Address City/[facility] Phon e Number HP CONVERSION (ABNORMAL) Iron (no IBC or Sat) (01/05/2016 10:10 AM CDT) athologist [facility] Iron, Serum 39 (L) 50 - 170 HP CONVERSION ug/dL Specimen Anatomical Collection Method Collection Time Receive d Time (Source) Location / / Volume Laterality 01/05/2016 10:10 01/05/2016 1:54 AM CDT PM CDT Narrative HP CONVERSION - 01/05/2016 2:17 PM CD[place] [address] CLIA number [id number] Merlin Kim MD LAB_1 Performing Organization Address City/[facility] Phon e Number HP CONVERSION GLUCOSE (01/05/2016 10:10 AM CDT) athologist [facility] Lab Glucose 79 60 - 100 HP CONVERSION mg/dL Specimen Anatomical Collection Method Collection Time Receive d Time (Source) Location / / Volume Laterality 01/05/2016 10:10 01/05/2016 2:13 AM CDT PM CDT Narrative HP CONVERSION - 01/05/2016 4:17 PM CDT Performed at [facility], [address] [place] [address] CLIA number [id number] Merlin Kim MD LAB_1 Performing Organization Address City/[facility] Phon e Number HP CONVERSION Hgb A1c (01/05/2016 10:10 AM CDT) athologist [facility] HGB A1C 5.2 4.0 - 5.6 % HP CONVERSION Specimen Anatomical Collection Method Collection Time Receive d Time (Source) Location / / Volume Laterality 01/05/2016 10:10 01/05/2016 AM CDT 12:05 PM CDT Narrative HP CONVERSION - 01/05/2016 1:51 PM CDT Performed at [place] [id number] CLIA number [id number] Merlin Kim MD LAB_1 Performing Organization Address City/[facility] Phon e Number HP CONVERSION (ABNORMAL) Hemoglobin, Blood (01/05/2016 10:10 AM CDT) P athologist Signature Hemoglobin 9.8 (L) 11.8 - 15.5 HP CONVERSION g/dL Specimen Anatomical Collection Method Collection Time Receive d Time (Source) Location / / Volume Laterality 01/05/2016 10:10 01/05/2016 AM CDT 10:10 AM CDT Narrative HP CONVERSION - 01/05/2016 10:14 AM CDT Performed at [facility], [address], [place] [address] CLIA number [id number] Merlin Kim MD LAB_1 Performing Organization Address City/State/ZIP Code Phon e Number HP CONVERSION documented in this encounter Visit Diagnoses Diagnosis AMA (advanced maternal age) primigravida 35+, third trimester Previous gastric bypass affecting pregna ncy, antepartum documented in this encounter Care Teams Tool Engineer Relationship Specialty Start Date End Date Anny Daily APRN, NEW CAR MAKE READY MECHANIC PCP - General 12/16/13 [address] [place] [address] documented as of this encounter
--- OUTSIDE RECORDS SUMMARY | 2022-04-17 15:21 | XMS_ITS | Encounter Summary ---
:1980 Author [facility] Address [address] [place] [address] Care Team Providers Name Role Phone Anny Daily Sven [place] CNP Primary Care Provider [phone] Reason for Visit Reason Comments Routine Visit Encounter Details Date Type Department Care Team Description 10/07/2015 Routine [place] 1515 Merlin Kim Routine Obstetrics/Gynecolog MD Charles Visit y [address] [place] [address] [phone] Social History Tobacco Use Types Packs/Day Years Used Date Smoking Tobacco: Never Assessed Sex Assigned at Date Recorded Not on file documented as of this encounter Last Filed Vital Signs Vital Sign Reading Time Taken Comments Blood Pressure 100/50 10/07/2015 9:11 AM INSURANCE PROCESSING CLERK Pulse - - Temperature - - Respiratory Rate - - Oxygen Saturation - - Inhaled Oxygen Concentration - - Weight 90 kg (198 lb 8 oz) 10/07/2015 9:11 AM INSURANCE PROCESSING CLERK Height - - Body Mass Index 29.31 09/13/2015 1:17 PM INSURANCE PROCESSING CLERK documented in this encounter Progress Notes Merlin Kim MD - 10/07/2015 9:46 AM CST Vaginal bleeding has stopped, just one episode after intercourse. No intercourse since then and no vaginal bleeding. Hasn't been seen in Mental Health - recommend appointment. MSAFP today. Recheck urine culture today. Level II Ultrasound - 10/26/2015 Movement - Positive No complaints. F/U in 4 weeks RANCE PROCESSING CLERK documented in this encounter Plan of Treatment Not on filedocumented as of this encounter Visit Diagnoses Diagnosis AMA (advanced maternal age) primigravida 35+, second trimester - Primary documented in this encounter Care Teams Sleep Medicine Physician Relationship Specialty Start Date End Date Anny Daily, SHIRT OPERATOR, ORTHOPEDICS TEACHER PCP - General 12/16/13 04/09/16 [address] [address] [place] [address] documented as of this encounter
--- OUTSIDE RECORDS SUMMARY | 2022-04-17 15:21 | XMS_ITS | Encounter Summary ---
:1980 Author Organization [email or web address] Address [address] [place] [address] Care Team Providers Name Role Phone Anny Daily APRN, INVESTIGATION CLERK Primary Care Provider [phone] Reason for Visit Reason Comments Contractions Encounter Details Date Type Department Care Team Description 03/19/2016 Nurse T[facility] Anny Daily, RESIDENTIAL CARE OFFICER, Contractions Medicine INVESTIGATION CLERK [address] [address] [address] [place] [address] [place] [address] [phone] (Wo rk) Social History Tobacco Use Types Packs/Day Years Used Date Smoking Tobacco: Never Assessed Sex Assigned at Date Recorded Not on file documented as of this encounter Nursing Notes Amy Moreno RN - 03/19/2016 9:14 PM CDT Protocol: - [id number] Affirmative: [1] First baby (primipara) AND [2] contractions < 6 minutes apart AND [3] present 2 hours Disposition of Go To LD Now suggested. Spouse of pt calling. Pt 40 weeks gestation starting having contractions about 2 hours ago. Contractions are increasing in intensity. Contractions are about 3 min apart and lasting 45 seconds to 1 min.Pt also lost her mucus plug earlier today. Directed pt and spouse to go to L&D at [facility]. Called L&D to inform them of incoming pt. documented in this encounter Plan of Treatment Not on filedocumented as of this encounter Visit Diagnoses Not on filedocumented in this encounter Care Teams Dinkey Driver Relationship Specialty Start Date End Date Anny Daily APRN, INVESTIGATION CLERK PCP - General 12/16/13 04/09/16 [address] [address] [place] [address] documented as of this encounter
--- OUTSIDE RECORDS SUMMARY | 2022-04-17 15:21 | XMS_ITS | Encounter Summary ---
:1980 Author Organization [employer] Address [address] [place] [address] Care Team Providers Name Role Phone Anny Daily Sven WAKEFIELD CNP Primary Care Provider [phone] Reason for Visit Reason Comments Routine Visit Encounter Details Date Type Department Care Team Description 01/14/2016 Routine Lin 1515 Merlin Kim Routine Obstetrics/Gynecolog MD Charles Visit y [address] [place] [address] [phone] Social History Tobacco Use Types Packs/Day Years Used Date Smoking Tobacco: Never Assessed Sex Assigned at Date Recorded Not on file documented as of this encounter Last Filed Vital Signs Vital Sign Reading Time Taken Comments Blood Pressure 98/54 01/14/2016 9:50 AM CDT Pulse - - Temperature - - Respiratory Rate - - Oxygen Saturation - - Inhaled Oxygen Concentration - - Weight 97 kg (213 lb 14.4 oz) 01/14/2016 9:50 AM CDT Height - - Body Mass Index 31.59 09/13/2015 1:[address] MAINTENANCE TECHNICIAN documented in this encounter Progress Notes Merlin Kim MD - 01/14/2016 10:14 AM CDT Saw therapist in Mental Health yesterday - doing well at this time, no medications. Movement - Positive No complaints. F/U in 2 weeks documented in this encounter Plan of Treatment Not on filedocumented as of this encounter Visit Diagnoses Diagnosis AMA (advanced maternal age) primigravida 35+, third trimester - Primary Previous gastric bypass affecting pregna ncy, antepartum documented in this encounter Care Teams Lead Generation Marketing Manager Relationship Specialty Start Date End Date Anny Daily, PRODUCT SAFETY TEST ENGINEER, AIRPLANE DISPATCHER PCP - General 12/16/13 04/09/[address] [place] [address] documented as of this encounter
--- OUTSIDE RECORDS SUMMARY | 2022-04-17 15:21 | XMS_ITS | Encounter Summary ---
:1980 Author Organization [facility] Address [address] [place] [address] Care Team Providers Name Role Phone Anny Daily APRN, COMPUTER PROJECT MANAGER Primary Care Provider [phone] Encounter Details Date Type Department Care Team Description 09/09/2015 Imaging [place] Maternal AM A (advanced maternal age) primigravida 35+, unspecified trimester; Medicine H/O gastric bypass [address] [facility], [address] [place] [address] Social History Tobacco Use Types Packs/Day Years Used Date Smoking Tobacco: Never Assessed Sex Assigned at Date Recorded Not on file documented as of this encounter Plan of Treatment Not on filedocumented as of this encounter Procedures Procedure Name Priority Date/Time Associated Diagnosis Comme nts MFM US OB UNDER 14 Routine 09/09/2015 9:20 AM AMA (advanced Re sults for this WKS VOIP TECHNICIAN maternal age) procedure are in primigravida 35+, the result s unspecified trim roderick section. H/O gastric bypass documented in this encounter Results Yudy US OB Under 14 Wks (09/09/2015 9:20 AM VOIP TECHNICIAN) Anatomical Region Laterality Modality Pelvis Other Study GA Study Date Study FAHAD Working FAHAD (Source) W eight (Method) 12w5d 09/09/2015 0 g (Other Sour ce) Result Name Value Comments GA by US Calc 90 days 90 Gest Sac CRL 6.59 cm 90 NT FHR 161 bpm Specimen (Source) Anatomical Location Collection Method / Collectio n Time Received Time / Laterality Volume Impressions 09/09/2015 9:47 AM VOIP TECHNICIAN S: Single live intrauterine at 12 w5d by dates. INDICATIONS: ??Advanced maternal age (35 yo). ??History of bariatric surgery. ??1st trimester bleeding. [place] rump length is consistent with nicolasa es, suggesting a gestational age of 12 weeks 6 days. The NT is within normal limits for CRL. Normal cardiac activity is documen yadira. Normal first trimester anatomy is noted. The patient met with our Genetic Wagon Winder or regarding options for aneuploidy testing. An NIPT was drawn today per patient request. ?? An US for anatomy is recommended a t approximately 20 weeks gestation, since a first trimester US will only detect less than 50% of congenital abnormalities. ?? Thank you for allowing us to participate in the care of your patient. Narrative 09/09/2015 9:47 AM VOIP TECHNICIAN Patient Name: Lennie Sal ??Sono grapher: Cecy Powell [facility] Patient ??GA Prior to Exam : 12w5d , Age: 10 1980, 35 y.o. ??GA by Lee jean'drake US: 12w6d LMP: Patient's last menstrual period was 06/12/2015. ??GA Selected: 12w5d by LMP Pregnancies: ??FAHAD Selected: 016 Hx/Indications: Advanced Maternal Age Hx Gastric Bypass NIPT ? Evaluation Gestation Type Douglas Cardiac Activity Present Heart Rate 161 bpm Motion Normal Presentation Transverse Amniotic Fluid Normal ? Biometry & Growth Measurement Value Percentile GA CRL 6.59 cm 56% 12w6d First Trimester Gestational Sac Normal [place] Sac Not Seen Amnion Seen Nuchal Translucency Normal ? Anatomy Finding Normal Abnormal Inadequately Vis ualized Nasal Bone X ? Stomach X ? Bladder X ? Right Upper Extremity X ? Left Upper Extremity X ? Right Lower Extremity X ? Left Lower Extremity X ? Maternal Evaluation Cervical Length (cm) N/A Right Ovary Nor mal With Fundal Pressure(cm) N/A ?? Left Ova ry Normal Funneling N/A Right Adnexa Normal Uterus Normal Left Adnexa Normal Impression Merlin Kim MD RAD YUDY US documented in this encounter Visit Diagnoses Diagnosis AMA (advanced maternal age) primigravida 35+, unspecified trimester H/O gastric bypass Bariatric surgery status documented in this encounter Care Teams Body And Fender Mechanic Apprentice Relationship Specialty Start Date End Date Anny Daily, WRECKER OPERATOR, COMPUTER PROJECT MANAGER PCP - General 12/16/13 04/09/16 [address] [place] [address] documented as of this encounter
--- OUTSIDE RECORDS SUMMARY | 2022-04-17 15:21 | XMS_ITS | Encounter Summary ---
:1980 [facility] Address [address] [place] [address] Care Team Providers Name Role Phone CodingtonCrys haywardrenee Machuca APRN, CNP Primary Care Provider [phone] Encounter Details Date Type Department Care Team Description 09/08/2015 Notes/Orders [place] Maternal Shyann Morgan CGC AMA (advanced maternal Medicine [address] [place] [address]) primigravida 35+, [id number] [facility] [address], [address] [place], [place] (Primary Dx) [place], [place] [id number] [phone] Social History Tobacco Use Types Packs/Day Years Used Date Smoking Tobacco: Never Assessed Sex Assigned at Date Recorded Not on file documented as of this encounter Progress Notes Shyann Drake CGC - 09/08/2015 4:03 PM CST I did speak to Lennie, she agrees with plan for NIPT. She has no family history concerns. Advised of MS-AFP and Level II ultrasound as follow-up. Shyann Drake MS, [facility] Genetic Counselor [phone] [employer]ITY GUARDS DISPATCHER Shyann Drake CGC - 09/08/2015 2:13 PM CST I left a message for Lennie so that we can review the information pertaining to her early genetic screening appointment tomorrow at [facility]. We have cancelled the genetic counseling portionas our provider will be out of the office. In my message I advised her to come at 9 am for nuchal translucency ultrasound. She can discuss with Dr. Garay advanced maternal age screening options (NIPT or first trimester screening) at that time or if she is able to call me back we can review it on the phone this afternoon. I have placed this order for NIPT in case that is the option that makes sense for her. It does appear she would not have an eye-vi-shbeya cost with the insurance we have on filefor her ( Care). Shyann Drake MS, [facility] Genetic Counselor [phone] RITY GUARDS DISPATCHER documented in this encounter Plan of Treatment Not on filedocumented as of this encounter Visit Diagnoses Diagnosis AMA (advanced maternal age) primigravida 35+, first trimester - Primary documented in this encounter Care Teams Telecommunications Technician Relationship Specialty Start Date End Date Anny Daily, WOOD DIE MAKER, MUSIC REHABILITATION THERAPIST PCP - General 12/16/13 04/09/16 [id number] [place] AMITA Bearden [id number] documented as of this encounter
--- OUTSIDE RECORDS SUMMARY | 2022-04-17 15:21 | XMS_ITS | Encounter Summary ---
:1980 Author Organization [facility] Address [address] [place] [address] Care Team Providers Name Role Phone Killian Annyrenee Machuca APRN, IMANI Primary Care Provider [phone] Encounter Details Date Type Department Care Team Description 08/19/2015 Lab Visit [facility] Screening for diabetes adam tus; [address] AMA (advanced maternal age) primigravida 35+, unspecified trimester; [place] [address] Screening examination for ve nereal disease; [phone] Screening exami nation for rubella; Previous gastri c bypass affecting , antepartum Social History Tobacco Use Types Packs/Day Years Used Date Smoking Tobacco: Never Assessed Sex Assigned at Date Recorded Not on file documented as of this encounter Progress Notes Merlin Kim MD - 08/20/2015 3:24 PM FISCAL SERVICES MANAGER Quick Note: Please call patient. Urine culture - urinary tract infection. Recommend Ampicillin 500 mg every 6 hours x 10 days. Prescription faxed to [facility] in [place]. AL SERVICES MANAGER documented in this encounter Miscellaneous Notes Miscellaneous - 12/21/2016 1:39 PM CDTNotes Recorded by Merlin Kim MD on 08/20/2015 at 3:24 PMPlease call patient.Urine culture - urinary tract infection.Recommend Ampicillin 500 mg every 6 hours x 10 days.Prescription faxed to [facility] in [place]. Miscellaneous - 10/11/2016 11:58 PM CSTNotes Recorded by Merlin Kim MD on 08/20/2015 at 3:24 PMPlease call patient.Urine culture - urinary tract infection.Recommend Ampicillin 500 mg every 6 hours x 10 days.Prescription faxed to [facility] in [place]. AL SERVICES MANAGER Miscellaneous - 10/11/2016 11:58 PM CSTNotes Recorded by Merlin Kim MD on 08/20/2015 at 3:24 PMPlease call patient.Urine culture - urinary tract infection.Recommend Ampicillin 500 mg every 6 hours x 10 days.Prescription faxed to [facility] in [place]. AL SERVICES MANAGER Miscellaneous - 10/11/2016 11:58 PM CSTNotes Recorded by Merlin Kim MD on 08/20/2015 at 3:24 PMPlease call patient.Urine culture - urinary tract infection.Recommend Ampicillin 500 mg every 6 hours x 10 days.Prescription faxed to [facility] in [place]. AL SERVICES MANAGER Miscellaneous - 10/11/2016 11:58 PM CSTNotes Recorded by Merlin Kim MD on 08/20/2015 at 3:24 PMPlease call patient.Urine culture - urinary tract infection.Recommend Ampicillin 500 mg every 6 hours x 10 days.Prescription faxed to [facility] in [place]. AL SERVICES MANAGER Miscellaneous - 10/11/2016 11:58 PM CSTNotes Recorded by Merlin Kim MD on 08/20/2015 at 3:24 PMPlease call patient.Urine culture - urinary tract infection.Recommend Ampicillin 500 mg every 6 hours x 10 days.Prescription faxed to [facility] in [place]. AL SERVICES MANAGER Miscellaneous - 10/11/2016 11:58 PM CSTNotes Recorded by Merlin Kim MD on 08/20/2015 at 3:24 PMPlease call patient.Urine culture - urinary tract infection.Recommend Ampicillin 500 mg every 6 hours x 10 days.Prescription faxed to [facility] in [place]. AL SERVICES MANAGER Miscellaneous - 10/11/2016 11:58 PM CSTNotes Recorded by Merlin Kim MD on 08/20/2015 at 3:24 PMPlease call patient.Urine culture - urinary tract infection.Recommend Ampicillin 500 mg every 6 hours x 10 days.Prescription faxed to [facility] in [place]. AL SERVICES MANAGER Miscellaneous - 10/11/2016 11:58 PM CSTNotes Recorded by Merlin Kim MD on 08/20/2015 at 3:24 PMPlease call patient.Urine culture - urinary tract infection.Recommend Ampicillin 500 mg every 6 hours x 10 days.Prescription faxed to [facility] in [place]. AL SERVICES MANAGER Miscellaneous - 10/11/2016 11:58 PM CSTNotes Recorded by Merlin Kim MD on 08/20/2015 at 3:24 PMPlease call patient.Urine culture - urinary tract infection.Recommend Ampicillin 500 mg every 6 hours x 10 days.Prescription faxed to [facility] in [place]. AL SERVICES MANAGER Miscellaneous - 10/11/2016 11:58 PM CSTNotes Recorded by Merlin Kim MD on 08/20/2015 at 3:24 PMPlease call patient.Urine culture - urinary tract infection.Recommend Ampicillin 500 mg every 6 hours x 10 days.Prescription faxed to [facility] in [place]. AL SERVICES MANAGER Miscellaneous - 10/11/2016 11:58 PM CSTNotes Recorded by Merlin Kim MD on 08/20/2015 at 3:24 PMPlease call patient.Urine culture - urinary tract infection.Recommend Ampicillin 500 mg every 6 hours x 10 days.Prescription faxed to [facility] in [place]. AL SERVICES MANAGER Miscellaneous - 10/11/2016 11:58 PM CSTNotes Recorded by Merlin Kim MD on 08/20/2015 at 3:24 PMPlease call patient.Urine culture - urinary tract infection.Recommend Ampicillin 500 mg every 6 hours x 10 days.Prescription faxed to [facility] in [place]. AL SERVICES MANAGER Miscellaneous - 10/11/2016 11:58 PM CSTNotes Recorded by Merlin Kim MD on 08/20/2015 at 3:24 PMPlease call patient.Urine culture - urinary tract infection.Recommend Ampicillin 500 mg every 6 hours x 10 days.Prescription faxed to [facility] in [place]. AL SERVICES MANAGER documented in this encounter Plan of Treatment Not on filedocumented as of this encounter Procedures Procedure Name Priority Date/Time Associated Diagnosis Comme nts URINALYSIS Routine 08/19/2015 10:45 AMA (advanced Results fo r this ROUTINE(MICRO IF POS) AM FISCAL SERVICES MANAGER maternal age) proce dure are in primigravida 35+, the result s unspecified section. trimester URINE CULTURE Routine 08/19/2015 10:45 AMA (advanced Results f or this AM FISCAL SERVICES MANAGER maternal age) procedure are in primigravida 35+, the result s unspecified section. trimester HIV-1 P24 AND Routine 08/19/2015 10:40 Screening Results fo r this HIV-1/HIV-2 AM FISCAL SERVICES MANAGER examination for procedure ar e in ANTIBODIES venereal disease the results section. RUBELLA IGG Routine 08/19/2015 10:40 Screening Results for this AM FISCAL SERVICES MANAGER examination for procedure ar e in rubella the results section. TREPONEMA SCREEN Routine 08/19/2015 10:40 Screening Results for this AM FISCAL SERVICES MANAGER examination for procedure ar e in venereal disease the results section. HEP B SURFACE Routine 08/19/2015 10:40 Screening Results fo r this ANTIGEN, NO REFLEX AM FISCAL SERVICES MANAGER examination for proced ure are in venereal disease the results section. VITAMIN D 25-HYDROXY, Routine 08/19/2015 10:40 AMA (advanced R esults for this TOTAL AM FISCAL SERVICES MANAGER maternal age) procedure are in primigravida 35+, the result s unspecified section. trimester HOMOCYSTEINE Routine 08/19/2015 10:40 Previous gastric Results for this AM FISCAL SERVICES MANAGER bypass affecting procedure a re in , the results antepartum section. IRON (NO IBC OR SAT) Routine 08/19/2015 10:40 Previous gastric Results for this AM FISCAL SERVICES MANAGER bypass affecting procedure a re in , the results antepartum section. COMPLETE BLOOD Routine 08/19/2015 10:40 AMA (advanced Results for this COUNT-W/DIFF AM FISCAL SERVICES MANAGER maternal age) procedure are in primigravida 35+, the result s unspecified section. trimester DIFFERENTIAL Routine 08/19/2015 10:40 Results for this AM FISCAL SERVICES MANAGER procedure are i n the results section. HEPATITIS C ANTIBODY, Routine 08/19/2015 10:40 AMA (advanced R esults for this WITH REFLEX AM FISCAL SERVICES MANAGER maternal age) procedure are in primigravida 35+, the result s unspecified section. trimester HGB A1C Routine 08/19/2015 10:40 Screening for Results fo r this AM FISCAL SERVICES MANAGER diabetes mellitus procedure are in the results section. FOLATE ONLY (4HR FAST Routine 08/19/2015 10:40 Previous gastri c Results for this RECOMMENDED) AM FISCAL SERVICES MANAGER bypass affecting procedure a re in , the results antepartum section. VITAMIN B12 ONLY Routine 08/19/2015 10:40 Previous gastric Res ults for this AM FISCAL SERVICES MANAGER bypass affecting procedure a re in , the results antepartum section. CALCIUM Routine 08/19/2015 10:40 Previous gastric Results for this AM FISCAL SERVICES MANAGER bypass affecting procedure a re in , the results antepartum section. documented in this encounter Results (ABNORMAL) Urine Culture (08/19/2015 10:45 AM FISCAL SERVICES MANAGER) Component Value Ref Test Analysis Performed At [facility] gist Range Method Time Signature Source Urine HP CONVERSION Site clean catch HP CONVERSION Urine Culture For symptomatic HP CONVERS ION patients, correlate culture results in (A) Urine Culture context of HP CONVERSION clinical findings. Screening for and treatment (A) Urine Culture of asymptomatic HP CONVERS ION bacteriuria in adults 18 years and older (A) Urine Culture is not HP CONVERSION recommended for the following persons: premenopausal (A) Urine Culture non HP CONVERSION women, diabetic women, elderly persons, persons (A) Urine Culture with spinal cord HP CONVER UNRULY injury and catheterized patients. (A) Urine Culture In general, HP CONVERSION asymptomatic bacteriuria does not need (A) Urine Culture treatment, except HP CONVE RSION in or in patients anticipating (A) Urine Culture urologic surgery. HP CONVE RSION (A) Urine Culture (See Infectious HP CONVERS ION Disease Society of [place] (A) Urine Culture guidelines for HP CONVERSI ON additional information) (A) Urine Culture [email or web address] HP CONVE RSION journals.org/cont ent/[email or web address]/5/[email or web address].full .pdf (A) Urine Culture Streptococcus agalactiae (Group B) HP CONVERSION 10-50,000 cfu/ml (A) Specimen (Source) Anatomical Collection Method Collection Time Re ceived Time Location / / Volume Laterality Urine:clean catch 08/19/2015 10:45 AM FISCAL SERVICES MANAGER Narrative HP CONVERSION - 08/20/2015 12:31 PM FISCAL SERVICES MANAGER Performed at [facility], [address] [place] [address], CLIA Number [id number] Transcriptions 12/21/2016 1:39 PM CDTNotes Recorded by Merlin Kim MD on 08/20/2015 at 3:24 PMPlease call patient.Urine culture - urinary tract infection.Recommend Ampicillin 500 mg every 6 hours x 10 days.Prescription faxed to [facility] in [place]. Merlin Kim MD LAB_1 Performing Organization Address City/State/ZIP Code Phon e Number HP CONVERSION (ABNORMAL) URINALYSIS ROUTINE(MICRO IF POS) (08/19/2015 10:45 AM FISCAL SERVICES MANAGER) [facility] gist Method Time Signature Urine Type Urine:clean HP CONVERSION cat Turbidity Clear Clear HP CONVERSION U BILI Negative Negative HP CONVERSION Blood Urine Negative Negative HP CONVERSION Glucose, Negative Neg-30 HP CONVERSION Qualitative U mg/dL Ketones Trace (A) Negative HP CONVERSION Leukocyte Negative Negative HP CONVERSION Esterase Urine Nitrite Urine Negative Negative HP CONVERSION pH Urine 6.0 5.0 - 8.0 HP CONVERSION Protein Urine Negative Neg - Trace HP CONVERSION mg/dL U Specific >=1.030 1.005 - HP CONVERSION [place] 1.030 Urobilinogen Negative Negative HP CONVERSION Urine Eu/dL Specimen Anatomical Collection Method Collection Time Receive d Time (Source) Location / / Volume Laterality Urine: 08/19/2015 10:45 08/19/2015 AM FISCAL SERVICES MANAGER 10:45 AM FISCAL SERVICES MANAGER Narrative HP CONVERSION - 08/19/2015 10:48 AM FISCAL SERVICES MANAGER Performed at [facility], [facility] [place] [address] CLIA number [id number] Transcriptions 10/11/2016 11:58 PM CSTNotes Recorded by Merlin Kim MD on 08/20/2015 at 3:24 PMPlease call patient.Urine culture - urinary tract infection.Recommend Ampicillin 500 mg every 6 hours x 10 days.Prescription faxed to [facility]. Merlin Kim MD LAB_1 Performing Organization Address City/[facility] Code Phon e Number HP CONVERSION Differential (08/19/2015 10:40 AM FISCAL SERVICES MANAGER) P athologist Signature Absolute 6.4 1.8 - 8.0 HP CONVERSION Neutrophils k/cmm Absolute 1.9 1.1 - 4.0 HP CONVERSION Lymphocytes k/cmm Absolute 0.6 0.2 - 0.8 HP CONVERSION Monocytes k/cmm Absolute 0.1 0.0 - 0.5 HP CONVERSION Eosinophils k/cmm Absolute 0.1 0.0 - 0.2 HP CONVERSION Basophils k/cmm Specimen Anatomical Collection Method Collection Time Receive d Time (Source) Location / / Volume Laterality 08/19/2015 10:40 08/19/2015 AM FISCAL SERVICES MANAGER 10:40 AM FISCAL SERVICES MANAGER Narrative HP CONVERSION - 08/19/2015 10:45 AM FISCAL SERVICES MANAGER [place] [address] CLIA number [id number] Transcriptions 10/11/2016 11:58 PM CSTNotes Recorded by Merlin Kim MD on 08/20/2015 at 3:24 PMPlease call patient.Urine culture - urinary tract infection.Recommend Ampicillin 500 mg every 6 hours x 10 days.Prescription faxed to [facility]. Merlin Kim MD LAB_1 Performing Organization Address City/[facility] Code Phon e Number HP CONVERSION (ABNORMAL) Homocysteine (08/19/2015 10:40 AM FISCAL SERVICES MANAGER) [facility] Method Time Signature Homocysteine 4.6 (L) 5.0 - HP CONVERSION Plasma 15.4 umol/L Specimen Anatomical Collection Method Collection Time Receive d Time (Source) Location / / Volume Laterality 08/19/2015 10:40 08/20/2015 7:36 AM FISCAL SERVICES MANAGER PM FISCAL SERVICES MANAGER Narrative HP CONVERSION - 08/20/2015 9:20 PM FISCAL SERVICES MANAGER Performed at [address] [address] CLIA number [id number] Merlin Kim MD LAB_1 Performing Organization Address City/State/ZIP Code Phon e Number HP CONVERSION (ABNORMAL) B12 Only (08/19/2015 10:40 AM FISCAL SERVICES MANAGER) athologist Signature Vitamin B12 1,270 (H) 213 - 816 HP CONVERSION pg/dL Specimen Anatomical Collection Method Collection Time Receive d Time (Source) Location / / Volume Laterality 08/19/2015 10:40 08/19/2015 3:29 AM FISCAL SERVICES MANAGER PM FISCAL SERVICES MANAGER Narrative HP CONVERSION - 08/20/2015 10:25 AM FISCAL SERVICES MANAGER Performed at [facility] [address] [place] [address] CLIA number [id number] Transcriptions 10/11/2016 11:58 PM CSTNotes Recorded by Merlin Kim MD on 08/20/2015 at 3:24 PMPlease call patient.Urine culture - urinary tract infection.Recommend Ampicillin 500 mg every 6 hours x 10 days.Prescription faxed to [facility]. Merlin Kim MD LAB_1 Performing Organization Address [facility] Phon e Number HP CONVERSION Calcium (08/19/2015 10:40 AM FISCAL SERVICES MANAGER) athologist [facility] Calcium 9.2 8.4 - 10.2 HP CONVERSION mg/dL Specimen Anatomical Collection Method Collection Time Receive d Time (Source) Location / / Volume Laterality 08/19/2015 10:40 08/19/2015 2:38 AM FISCAL SERVICES MANAGER PM FISCAL SERVICES MANAGER Narrative HP CONVERSION - 08/19/2015 3:02 PM FISCAL SERVICES MANAGER Performed at [facility], [address] [place] [address] CLIA number [id number] Transcriptions 10/11/2016 11:58 PM CSTNotes Recorded by Merlin Kim MD on 08/20/2015 at 3:24 PMPlease call patient.Urine culture - urinary tract infection.Recommend Ampicillin 500 mg every 6 hours x 10 days.Prescription faxed to [facility]. Merlin Kim MD LAB_1 Performing Organization Address City/[facility]/ZIP Code Phon e Number HP CONVERSION Folate Only (4Hr Fast Recommended) (08/19/2015 10:40 AM FISCAL SERVICES MANAGER) athologist Signature Serum Folate 16.0 7.0 - HP CONVERSION 9,999.9 ng/mL Specimen Anatomical Collection Method Collection Time Receive d Time (Source) Location / / Volume Laterality 08/19/2015 10:40 08/19/2015 3:29 AM FISCAL SERVICES MANAGER PM FISCAL SERVICES MANAGER Narrative HP CONVERSION - 08/20/2015 10:25 AM FISCAL SERVICES MANAGER [place] [address] CLIA number [id number] Transcriptions 10/11/2016 11:58 PM CSTNotes Recorded by Merlin Kim MD on 08/20/2015 at 3:24 PMPlease call patient.Urine culture - urinary tract infection.Recommend Ampicillin 500 mg every 6 hours x 10 days.Prescription faxed to [facility]. Merlin Kim MD LAB_1 Performing Organization Address City/[facility] Phon e Number HP CONVERSION Iron (no IBC or Sat) (08/19/2015 10:40 AM FISCAL SERVICES MANAGER) athologist Signature Iron, Serum 69 50 - 170 HP CONVERSION ug/dL Specimen Anatomical Collection Method Collection Time Receive d Time (Source) Location / / Volume Laterality 08/19/2015 10:40 08/19/2015 3:28 AM FISCAL SERVICES MANAGER PM FISCAL SERVICES MANAGER Narrative HP CONVERSION - 08/20/2015 2:14 PM FISCAL SERVICES MANAGER Performed at [address] [address] CLIA number [id number] Transcriptions 10/11/2016 11:58 PM CSTNotes Recorded by Merlin Kim MD on 08/20/2015 at 3:24 PMPlease call patient.Urine culture - urinary tract infection.Recommend Ampicillin 500 mg every 6 hours x 10 days.Prescription faxed to [facility]. Merlin Kim MD LAB_1 Performing Organization Address City/State/ZIP Code Phon e Number HP CONVERSION Vitamin D 25-Hydroxy, Total (08/19/2015 10:40 AM FISCAL SERVICES MANAGER) athologist Signature Vitamin D 25 Oh 31 20 - 80 HP CONVERSION ng/mL Comment: Deficiency = <20 Adequate ??= 20-29 Preferred = 30-50 Uncertain safety = 51-80 High = >80 Specimen Anatomical Collection Method Collection Time Receive d Time (Source) Location / / Volume Laterality 08/19/2015 10:40 08/19/2015 3:28 AM FISCAL SERVICES MANAGER PM FISCAL SERVICES MANAGER Narrative HP CONVERSION - 08/20/2015 10:09 AM FISCAL SERVICES MANAGER Performed at [place] [address] [place] [address] CLIA number [id number] Transcriptions 10/11/2016 11:58 PM CSTNotes Recorded by Merlin Kim MD on 08/20/2015 at 3:24 PMPlease call patient.Urine culture - urinary tract infection.Recommend Ampicillin 500 mg every 6 hours x 10 days.Prescription faxed to [facility]. Merlin Kim MD LAB_1 Performing Organization Address City/[facility] Phon e Number HP CONVERSION Hepatitis C Antibody, with Reflex (08/19/2015 10:40 AM FISCAL SERVICES MANAGER) [facility] gist Method Time Signature Hepatitis C Nonreactive Non-React HP CONVERSION Antibody faisal Specimen Anatomical Collection Method Collection Time Receive d Time (Source) Location / / Volume Laterality 08/19/2015 10:40 08/19/2015 3:28 AM FISCAL SERVICES MANAGER PM FISCAL SERVICES MANAGER Narrative HP CONVERSION - 08/20/2015 3:14 PM FISCAL SERVICES MANAGER Performed at [address] [address] CLIA number [id number] Transcriptions 10/11/2016 11:58 PM CSTNotes Recorded by Merlin Kim MD on 08/20/2015 at 3:24 PMPlease call patient.Urine culture - urinary tract infection.Recommend Ampicillin 500 mg every 6 hours x 10 days.Prescription faxed to [facility]. Merlin Kim MD LAB_1 Performing Organization Address City/[facility] Phon e Number HP CONVERSION (ABNORMAL) RUBELLA IGG (08/19/2015 10:40 AM FISCAL SERVICES MANAGER) [facility] Time Signature Rubella IgG Not Immune Immune HP CONVERSION (A) Specimen Anatomical Collection Method Collection Time Receive d Time (Source) Location / / Volume Laterality 08/19/2015 10:40 08/19/2015 3:28 AM FISCAL SERVICES MANAGER PM FISCAL SERVICES MANAGER Narrative HP CONVERSION - 08/20/2015 10:09 AM FISCAL SERVICES MANAGER Performed at [address] [address] CLIA number [id number] Transcriptions 10/11/2016 11:58 PM CSTNotes Recorded by Merlin Kim MD on 08/20/2015 at 3:24 PMPlease call patient.Urine culture - urinary tract infection.Recommend Ampicillin 500 mg every 6 hours x 10 days.Prescription faxed to [facility]. Merlin Kim MD LAB_1 Performing Organization Address [facility] Phon e Number HP CONVERSION Treponema Screen (08/19/2015 10:40 AM FISCAL SERVICES MANAGER) [facility] Method Time Signature Treponema Non Reactive Non Reactive HP CONVERSION Screen Specimen Anatomical Collection Method Collection Time Receive d Time (Source) Location / / Volume Laterality 08/19/2015 10:40 08/19/2015 3:28 AM FISCAL SERVICES MANAGER PM FISCAL SERVICES MANAGER Narrative HP CONVERSION - 08/20/2015 10:09 AM FISCAL SERVICES MANAGER Performed at [address] [address] CLIA number [id number] Transcriptions 10/11/2016 11:58 PM CSTNotes Recorded by Merlin Kim MD on 08/20/2015 at 3:24 PMPlease call patient.Urine culture - urinary tract infection.Recommend Ampicillin 500 mg every 6 hours x 10 days.Prescription faxed to [facility]. Merlin Kim MD LAB_1 Performing Organization Address [facility] Phon e Number HP CONVERSION HIV-1 P24 AND HIV-1/HIV-2 ANTIBODIES (08/19/2015 10:40 AM FISCAL SERVICES MANAGER) [facility] Method Time Signature HIV-1 p24 Ag Nonreactive Non-React HP CONVERSION and faisal HIV-1/HIV-2 Ab Specimen Anatomical Collection Method Collection Time Receive d Time (Source) Location / / Volume Laterality 08/19/2015 10:40 08/19/2015 3:28 AM FISCAL SERVICES MANAGER PM FISCAL SERVICES MANAGER Narrative HP CONVERSION - 08/20/2015 3:14 PM FISCAL SERVICES MANAGER Performed at [address] [address] CLIA number [id number] Transcriptions 10/11/2016 11:58 PM CSTNotes Recorded by Merlin Kim MD on 08/20/2015 at 3:24 PMPlease call patient.Urine culture - urinary tract infection.Recommend Ampicillin 500 mg every 6 hours x 10 days.Prescription faxed to [facility]. Merlin Kim MD LAB_1 Performing Organization Address City/State/ZIP Code Phon e Number HP CONVERSION Hep B Surface Antigen, No Reflex (08/19/2015 10:40 AM FISCAL SERVICES MANAGER) [facility] Method Time Signature Hep B Surf Ag Nonreactive Negative HP CONVERSION Specimen Anatomical Collection Method Collection Time Receive d Time (Source) Location / / Volume Laterality 08/19/2015 10:40 08/19/2015 3:28 AM FISCAL SERVICES MANAGER PM FISCAL SERVICES MANAGER Narrative HP CONVERSION - 08/20/2015 3:14 PM FISCAL SERVICES MANAGER [place] [address] CLIA number [id number] Transcriptions 10/11/2016 11:58 PM CSTNotes Recorded by Merlin Kim MD on 08/20/2015 at 3:24 PMPlease call patient.Urine culture - urinary tract infection.Recommend Ampicillin 500 mg every 6 hours x 10 days.Prescription faxed to [facility]. Merlin Kim MD LAB_1 Performing Organization Address City/[facility] Code Phon e Number HP CONVERSION (ABNORMAL) Complete Blood Count W/Diff (08/19/2015 10:40 AM FISCAL SERVICES MANAGER) [facility] Method Time Signature White Blood Cell 9.2 3.8 - HP CONVERSION Count 11.0 k/cmm Red Blood Cell 3.47 (L) 3.70 - HP CONVERSION Count 5.20 m/cmm Hemoglobin 10.4 (L) 11.8 - HP CONVERSION 15.5 g/dL Hematocrit 30.9 (L) 35.0 - HP CONVERSION 46.0 % Mean Corpuscular 89.0 80.0 - HP CONVERSION Volume 100.0 fL RDW 12.9 11.0 - HP CONVERSION 15.0 % Platelet Count 175 140 - 450 HP CONVERSION k/cmm Specimen Anatomical Collection Method Collection Time Receive d Time (Source) Location / / Volume Laterality 08/19/2015 10:40 08/19/2015 AM FISCAL SERVICES MANAGER 10:40 AM FISCAL SERVICES MANAGER Narrative HP CONVERSION - 08/19/2015 10:45 AM FISCAL SERVICES MANAGER Performed at [facility], [address] [place], [place] [id number] CLIA number [id number] Transcriptions 10/11/2016 11:58 PM CSTNotes Recorded by Merlin Kim MD on 08/20/2015 at 3:24 PMPlease call patient.Urine culture - urinary tract infection.Recommend Ampicillin 500 mg every 6 hours x 10 days.Prescription faxed to [facility] in [place]. Merlin Kim MD LAB_1 Performing Organization Address City/[facility] Phon e Number HP CONVERSION Hgb A1c (08/19/2015 10:40 AM FISCAL SERVICES MANAGER) athologist Signature HGB A1C 5.0 4.0 - 5.6 % HP CONVERSION Specimen Anatomical Collection Method Collection Time Receive d Time (Source) Location / / Volume Laterality 08/19/2015 10:40 08/20/2015 3:43 AM FISCAL SERVICES MANAGER PM FISCAL SERVICES MANAGER Narrative HP CONVERSION - 08/20/2015 11:36 PM FISCAL SERVICES MANAGER Performed at [address] [address] CLIA number [id number] Merlin Kim MD LAB_1 Performing Organization Address City/[facility] Phon e Number HP CONVERSION documented in this encounter Visit Diagnoses Diagnosis Screening for diabetes mellitus AMA (advanced maternal age) primigravida 35+, unspecified trimester Screening examination for venereal disea se Screening examination for rubella Previous gastric bypass affecting pregna ncy, antepartum documented in this encounter Care Teams Vice President Of Engineering Relationship Specialty Start Date End Date Anny Daily, FACULTY ADMINISTRATOR, MANAGER STRATEGIC PARTNERSHIPS PCP - General 12/16/13 04/09/16 [address] [place] [id number] documented as of this encounter
--- OUTSIDE RECORDS SUMMARY | 2022-04-17 15:21 | XMS_ITS | Encounter Summary ---
:1980 Author Organization [facility] Address [address] [place] [address] Care Team Providers Name Role Phone Anny Daily Sven WAKEFIELD, SOFTWARE DEVELOPMENT ADVISOR Primary Care Provider [phone] Reason for Visit Reason Comments Concerns Encounter Details Date Type Department Care Team Description 09/27/2015 Nurse Triage [place] 1515 Natasha Webster, Concerns Obstetrics/Gynecolog y RN [address] [facility] [place] [address] Social History Tobacco Use Types Packs/Day Years Used Date Smoking Tobacco: Never Assessed Sex Assigned at Date Recorded Not on file documented as of this encounter Nursing Notes Natasha Webster, RN - 09/27/2015 2:50 PM CST Patient called back. Reviewed message below. Would like to come in for doptone check. Future Appointments Date Time Provider Department Center 09/27/2015 4:30 PM MD CANDACE Dempsey 10/07/2015 9:10 AM MD CANDACE Goff 10/26/2015 10:00 AM BURFR GIL[place] US 3 BURFR PER RUTH FR 10/26/2015 10:45 AM Meliton Major MD BURFR PER RUTH FR TRONIC ASSEMBLER Nithya Chavez MD - 09/27/2015 10:13 AM CST probably related to intercourse. if feeling baby move already, no concerns. If not and wants a fetalheart tone check, can be seen today or tomorrow if desires TRONIC ASSEMBLER Natasha Webster, RN - 09/27/2015 9:08 AM CST Protocol: - VAGINAL BLEEDING LESS THAN 20 WEEKS [id number] Affirmative: SPOTTING lasts > 48 hours or spotting happens more than once in a week Disposition of See PCP When Office Is Open (Within 3 Days) suggested. Patient called.. 15w 2 d. O positive blood type. When she woke up on Sunday there was blood in herunderwear; brighter red. One time incident. Continues to have brown spotting. Cramping. [place] Sun09-22-15 and 09-23-15. Patient of Dr. Kim. Routed to Dr. Chavez for directives. [phone] TRONIC ASSEMBLER documented in this encounter Plan of Treatment Not on filedocumented as of this encounter Visit Diagnoses Not on filedocumented in this encounter Care Teams Automotive Sales Associate Relationship Specialty Start Date End Date Anny Daily, RIVER TRANSPORTATION WORKER, SOFTWARE DEVELOPMENT ADVISOR PCP - General 12/16/13 04/09/16 [address] [place] [id number] documented as of this encounter
--- OUTSIDE RECORDS SUMMARY | 2022-04-17 15:21 | XMS_ITS | Encounter Summary ---
:1980 Author Organization [facility] Address [address] [place] [address] Care Team Providers Name Role Phone Anny Daily APRN, CNP Primary Care Provider [phone] Encounter Details Date Type Department Care Team Description 09/09/2015 Lab Visit [facility] A[facility] (adva nced maternal age) [facility] [facility] primigravida 35+, first [address] [facility] [address] [place] [address] Social History Tobacco Use Types Packs/Day Years Used Date Smoking Tobacco: Never Assessed Sex Assigned at Date Recorded Not on file documented as of this encounter Progress Notes Shyann Drake CGC - 09/16/2015 5:29 PM FINANCIAL SERVICES OFFICER Quick Note: contacted pt with results of NIPT which are normal, suggesting that the baby does NOT have an extrachromosome 13, 18 or 21. Patient wanted to know gender and this was relayed to her. This will be verified by the level 2 ultrasound. She denied further questions. NCIAL SERVICES OFFICER documented in this encounter Miscellaneous Notes Miscellaneous - 10/11/2016 11:03 PM CSTNotes Recorded by Shyann Drake CGC on 09/16/2015 at 5:29 PMcontacted pt with results of NIPT which are normal, suggesting that the baby does NOT have an extra chromosome 13, 18 or 21. Patient wanted to know gender and this was relayed to her. This will be verified by the level 2 ultrasound. She denied further questions. NCIAL SERVICES OFFICER documented in this encounter Plan of Treatment Not on filedocumented as of this encounter Procedures Procedure Name Priority Date/Time Associated Diagnosis Comme nts MATERNI T21 Routine 09/09/2015 9:35 AM AMA (advanced maternal Results for this FINANCIAL SERVICES OFFICER age) primigravida 35+, proce dure are in first trimester the results section. documented in this encounter Results MATERNI T21 (09/09/2015 9:35 AM FINANCIAL SERVICES OFFICER) [facility] Method Time Signature T21 Chromosomes Negative mL HP CONVERSION Comment: This specimen showed an expected represe ntation of chromosome 21, 18 and 13 material. Clinical correla tion is suggested. T21 Y Chromosomes Not Detected mL HP CONVER UNRULY Comment: Consistent with a female fetus. T21 Interpretation See Note HP CONVERSI ON Comment: Test Method Circulation cell-free DNA was purified f rom the plasma component of anti-coagulated maternal [facility] blood. It was then converted into a genomic DNA librar y for the determination of chromosome 21, 18 and 1 3 representation and the presence of the Y chromosome. Ot her chromosomal material, including chromosomes 22 , 16, sex chromosome(X and Y) representation, and select regions (22q, 15q, 5p, 1p) was also evaluated an d will only be reported as an Additional Finding when a n abnormality is detected. Performance The performance characteristics of the M [id number] PLUS laboratory-developed test (LDT) have bee n determined in a clinical validation study with women at increased risk for chromosomal aneuploidy. Intended Use ? Performance ? Confidence Interval ? (95% CI) Trisomy 21 ? Sensitivity: 99.1% ?96.3-99.8% ? Specificity: 99 .9% ?99.6-99.9% Trisomy 18 ? Sensitivity: >99.9% ? 92.4-100.0% ? Specificity: 99 .6% ?99.2-99.8% Trisomy 13 ? Sensitivity: 91.7% ?59.7-99.6% ? Specificity: 99 .7% ?99.3-99.9% Y chromosome ? Accuracy: 99.4% ? 99.0-99.6% Limitations of the Test DNA test results do not provide a defini tive genetic risk in all individuals. Cell-free DNA does not replace the accuracy and precision of d iagnostic with CVS or amniocentesis. A patient with a positive test result sh ould be referred for genetic counseling and offered invas faisal diagnosis for confirmation of test resul ts. A negative test result does not ensure an unaffecte d . While results of this testing are highly accur ate, not all chromosomal abnormalities may be detecte d due to placental, maternal or mosaicism, or other ca uses. Sex chromosomal aneuploidies are not reporta ble for known multiple gestations. The health care pro vider is responsible for the use of this informat ion in the management of their patient. Note This test was developed and its performa nce characteristics determine by [facility]. It h as not been cleared or approved by the U.S. FDA. This test i s used for clinical purposes. It should not be regarded as i nvestigational or for research. This laboratory is certifi ed under the Clinical Laboratory Improvement Amendmen ts (CLIA) as qualified to perform high complexity cli nical laboratory testing and accredited by the [employer]. Specimen Anatomical Collection Method Collection Time Receive d Time (Source) Location / / Volume Laterality 09/09/2015 9:35 AM 6 4:17 FINANCIAL SERVICES OFFICER PM FINANCIAL SERVICES OFFICER Narrative HP CONVERSION - 09/14/2015 8:32 PM FINANCIAL SERVICES OFFICER Performed at [facility] [address] [facility], [place] [address] CLIA number [id number] Transcriptions 10/11/2016 11:03 PM CSTNotes Recorded by Shyann Drake CGC on 09/16/2015 at 5:29 PMcontacted pt with results of NIPT which are normal, suggesting that the baby does NOT have an extra c hromosome 13, 18 or 21. Patient wanted t o know gender and this was relayed to her. This will be verified by the level 2 ultrasound. She denied further questions. Shyann Morgan CGC LAB_1 Performing Organization Address City/State/ZIP Code Phon e Number HP CONVERSION documented in this encounter Visit Diagnoses Diagnosis AMA (advanced maternal age) primigravida 35+, first trimester documented in this encounter Care Teams Pbx Inspector Relationship Specialty Start Date End Date Anny Daily, EXTRUDER, ORGAN FIXER PCP - General 12/16/13 04/09/16 [address] [place] [address] documented as of this encounter
--- OUTSIDE RECORDS SUMMARY | 2022-04-17 15:21 | XMS_ITS | Encounter Summary ---
:1980 Author Organization [facility] Address [address] [place] [address] Care Team Providers Name Role Phone Anny Daily Sven WAKEFIELD CNP Primary Care Provider Reason for Visit Reason Comments Routine Visit Encounter Details Date Type Department Care Team Description 03/17/2016 Routine [place] 1515 Merlin Kim Routine Obstetrics/Gynecolog MD Charles Visit y [address] [place] [address] [phone] Social History Tobacco Use Types Packs/Day Years Used Date Smoking Tobacco: Never Assessed Sex Assigned at Date Recorded Not on file documented as of this encounter Last Filed Vital Signs Vital Sign Reading Time Taken Comments Blood Pressure 98/60 03/17/2016 9:42 AM CDT Pulse - - Temperature - - Respiratory Rate - - Oxygen Saturation - - Inhaled Oxygen Concentration - - Weight 101.3 kg (223 lb 4.8 oz) 03/17/2016 9:42 AM CDT Height - - Body Mass Index 32.98 09/13/2015 1:17 PM JAVA WEB ARCHITECT documented in this encounter Progress Notes Merlin Kim MD - 03/17/2016 10:32 AM CDT Movement - Positive No complaints. Cx: 1-2 cm/ 20%/Vtx -2/post/mod (Cummings's Score - 3) BPP, KATTY & NST next week, IOL at 41 wks 0 days. documented in this encounter Plan of Treatment Not on filedocumented as of this encounter Visit Diagnoses Diagnosis AMA (advanced maternal age) primigravida 35+, third trimester - Primary Post-term , 40-42 weeks of gest ation Post term , unspecified episode of care documented in this encounter Care Teams Rodeo Clown Relationship Specialty Start Date End Date Anny Daily APRN, MANAGER GARAGE PCP - General 12/16/13 8 [address] [place] [address] documented as of this encounter
--- OUTSIDE RECORDS SUMMARY | 2022-04-17 15:21 | XMS_ITS | Encounter Summary ---
:1980 Author Organization [facility] Address [address] [place] [address] Care Team Providers Name Role Phone Radha Armendariz MD Primary Care Provider Encounter Details Date Type Department Care Team Description 05/12/2016 Notes/[facility] Viktoria Feliz MD Obstetrics/Gynecolog y [address] [facility] 5th Floor [facility] [place] [address] [phone] Social History Tobacco Use Types Packs/Day Years [...] on filedocumented in this encounter Care Teams Fish Hatchery Superintendent Relationship Specialty Start Date End Date Radha Armendariz MD PCP - General 05/04/16 03/19/[address] [place] [address] documented as of this encounter
--- OUTSIDE RECORDS SUMMARY | 2022-04-17 15:21 | XMS_ITS | Encounter Summary ---
:1980 Author Organization [email or web address] Address [address] [place] [address] Care Team Providers Name Role Phone Anny Daily Sven WAKEFIELD CNP Primary Care Provider [phone] Reason for Visit Reason Comments Routine Visit Encounter Details Date Type Department Care Team Description 09/27/2015 Routine [place] 1515 Natasha Kowalski Routi ne Obstetrics/Gynecolog MD Visit y [address] [place] [phone] Social History Tobacco Use Types Packs/Day Years Used Date Smoking Tobacco: Never Assessed Sex Assigned at Date Recorded Not on file documented as of this encounter Last Filed Vital Signs Vital Sign Reading Time Taken Comments Blood Pressure 112/54 09/27/2015 4:56 PM [employer] Pulse - - Temperature - - Respiratory Rate - - Oxygen Saturation - - Inhaled Oxygen Concentration - - Weight 89.7 kg (197 lb 12.8 oz) 09/27/2015 4:56 PM [employer] Height - - Body Mass Index 29.21 09/13/2015 1:17 PM [employer] documented in this encounter Progress Notes Natasha Kowalski MD - 09/27/2015 5:19 PM CST VISIT - see phone note When she woke up on Saturday there was blood in her underwear; brighter red. One time incident. Continues to have brown spotting. [place] Sun09-22-15 and 09-23-15. Comes in for heartbeat check and was reassured. No vaginal intercourse for now. [employer] documented in this encounter Plan of Treatment Not on filedocumented as of this encounter Visit Diagnoses Diagnosis Vaginal bleeding in , second tr imester - Primary documented in this encounter Care Teams Certified Tumor Registrar Relationship Specialty Start Date End Date Anny Daily, LEAD ADVISOR, HYDRODYNAMICIST PCP - General 12/16/13 04/09/16 [address] [place] [id number] documented as of this encounter
--- OUTSIDE RECORDS SUMMARY | 2022-04-17 15:21 | XMS_ITS | Encounter Summary ---
:1980 Author Organization [facility] Address [address] [place] [address] Care Team Providers Name Role Phone Anny Daily APRN, LITHOGRAPH DESIGNER Primary Care Provider [phone] Encounter Details Date Type Department Care Team Description 10/26/2015 Imaging [place] Maternal AM A (advanced maternal age) Medicine primigravida 35+, unspecifie d [address] [facility], [address] [place] [address] Social History Tobacco Use Types Packs/Day Years Used Date Smoking Tobacco: Never Assessed Sex Assigned at Date Recorded Not on file documented as of this encounter Plan of Treatment Not on filedocumented as of this encounter Procedures Procedure Name Priority Date/Time Associated Diagnosis Comme nts MFM US LEVEL 2 Routine 10/26/2015 10:53 AM AMA (advanced mater nal Results for this ART DEPARTMENT HEAD age) primigravida 35+, proce dure are in unspecified trimester the re sults section. documented in this encounter Results Yudy US Level 2 (10/26/2015 10:53 AM ART DEPARTMENT HEAD) Anatomical Region Laterality Modality Pelvis Other Study GA Study Date Study FAHAD Working FAHAD (Source) W eight (Method) 19w3d 10/26/2015 366 g (Hadlock 1984 (AC))326 g (Hadlock 1984 ( AC, FL))334 g ([place]way 1981 ( BPD, AC))316 g (Hadlock 1983 ( HC, AC))325 g (Hadlock 1984 ( BPD, AC, FL))315 g (Hadlock 1984 ( HC, AC, FL))319 g (Hadlock 1984 ( BPD, HC, AC, FL) )0 g (Other Source ) Result Name Value Comments GA by US Calc 136 days 136 BPD 4.57 cm 139 HC 16.33 cm 134 AC 15.18 cm 143 FL 3.06 cm 136 HL 3.09 cm FL/BPD 66.96 % FL/AC 20.16 % HC/AC 1.08 CI 80.88 % KATTY Lateral Ventricle CER 1.94 cm Foot Max Vertical Pocket FHR 141 bpm UAR - PSV UAR - S/D Ratio UAR - RI UAR - PI MCA - PSV MCA - S/D Ratio MCA - PI Cisterna Magna .52 cm NF .41 cm Specimen (Source) Anatomical Location Collection Method / Collectio n Time Received Time / Laterality Volume Narrative 10/26/2015 3:14 PM ART DEPARTMENT HEAD Patient Name: Lennie Irene ??Sonographe r: Debbie Tsai [facility] Patient ??GA Prior to Exam : 19w3d , Age: 10 1980, 35 y.o. ??GA by Lee duong US: 19w3d LMP: Patient's last menstrual period was 06/12/2015. ??GA Selected: 19w3d by LMP Pregnancies: ??FAHAD Selected: 016 Hx/Indications: Advanced Maternal Age Hx Gastric Bypass Negative NIPT ? Evaluation Gestation Type Douglas Cardiac Activity Present Heart Rate 141 bpm Motion Normal Presentation Variable Placenta Location Posterior Placenta Appearance/Findings Normal ?? Amniotic Fluid Normal Placenta Cord Insertion Normal ? Biometry & Growth Measurement Percentage GA Ratios ?? BPD 4.57 cm 67% 19w6d FL/BPD 66.96 % HC 16.33 cm 26% 19w1d FL/AC 20.16 % AC 15.18 cm 76% 20w3d HC/AC 1.08 FL 3.06 cm 44% 19w3d CI 80.88 % HL 3.09 cm 50% - 95% ? CER 1.94 cm 10% - 50% ? Weight: 319 g (11.2 oz) ?? Anatomy Finding Normal Abnormal Inadequately Vis ualized ??Finding Normal Abnormal Inadequately Visualized Head ? Heart ? Cranium X ?Heart Rhythm Regular ? Falx X ?4 Chamber Heart X ? Cerebellum/Vermis X ?Cardiac Linn X ? Choroid Plexus X ?Cardiac Positio [...] ?Pulmonary Veins X ? Lungs X ?Short Linn of Ventricles X ? Pleural Effusion Absent ? Short Linn of Great Vessels X ? Abdomen ? [...] X ? Right Upper Extremity X ?Sex Fema le ?? Left Upper Extremity X ?Skin ? Right Lower Extremity X ?Edema Ab sent ? Left Lower Extremity X ? Maternal Evaluation Cervical Length (cm) 4.3 Uterus Normal Approach Transabdominal Right Ovary Normal With Fundal Pressure (cm) N/A ?? Left Ov andressa Normal Funneling N/A Right Adnexa Normal Cul-de-sac N/A Left Adnexa Normal Impression 1) Intrauterine at 19w3d weeks gestational age 2) None of the anomalies commonly detect ed by ultrasound were evident in the detailed anatomic survey described above. 3) biometry is consistent with ges tation age. ?? 4) The amniotic fluid volume appeared no rmal. 5) Normal echocardiogram 6) Normal cervical length 7) No markers for aneuploidy seen Merlin Kim MD [facility] documented in this encounter Visit Diagnoses Diagnosis AMA (advanced maternal age) primigravida 35+, unspecified trimester documented in this encounter Care Teams Layout Mechanic Relationship Specialty Start Date End Date Anny Daily, TANKERMAN, LITHOGRAPH DESIGNER PCP - General 12/16/13 04/09/16 [address] [place] [id number] documented as of this encounter
--- OUTSIDE RECORDS SUMMARY | 2022-04-17 15:21 | XMS_ITS | Encounter Summary ---
:1980 Author Organization [facility] Address [address] [place] [address] Care Team Providers Name Role Phone Radha Armendariz MD Primary Care Provider Encounter Details Date Type Department Care Team Description 04/24/2017 Lab Visit [facility] 385 Encounter for long-term Laboratory (current) use of [address] medications [place], [place] [address] Social History Tobacco Use Types Packs/Day Years Used Date Smoking Tobacco: Former Smokeless Tobacco: Never Alcohol Use Standard Drinks/Week Comments No 0 (1 standard drink = 0.6 oz pure alcoho l) Sex Assigned at Date Recorded Not on file documented as of this encounter Plan of Treatment Not on filedocumented as of this encounter Procedures Procedure Name Priority Date/Time Associated Diagnosis Comme nts LIVER PANEL(HEPATIC Routine 04/24/2017 2:22 PM Encounter for R esults for this FUNCTION PANEL) CDT long-term (current) proce dure are in use of medications the resul ts section. documented in this encounter Results Hepatic Function Panel (04/24/2017 2:22 PM CDT) [facility] Method Time Signature Alk Phos 54 40 - 150 PN SOFT U/L Bilirubin Total 0.4 0.2 - 1.2 PN SOFT mg/dL Bilirubin, Direct 0.2 0.0 - 0.5 PN SOFT mg/dL Protein Total, Serum 7.3 6.4 - 8.3 PN SOFT g/dL Albumin 3.9 3.4 - 5.0 PN SOFT g/dL Aspartate 15 10 - 40 PN SOFT Aminotransferase U/L Alanine 13 9 - 55 PN SOFT Aminotransferase U/L Specimen Anatomical Collection Method Collection Time Receive d Time (Source) Location / / Volume Laterality 04/24/2017 2:22 PM 7 2:22 CDT PM CDT Narrative PN SOFT - 04/24/2017 2:54 PM CDT Performed at [facility], [address] [place] [address] CLIA number [id number] Pierre Yee MD LAB_1 Performing Organization Address City/State/ZIP Code Phon e Number PN SOFT [address] [place] [address] documented in this encounter Visit Diagnoses Diagnosis Encounter for long-term (current) use of medications Encounter for long-term (current) use of other medications documented in this encounter Care Teams Rn Imaging Relationship Specialty Start Date End Date Radha Armendariz MD PCP - General 05/04/16 03/19/[address] [place] [place] [address] documented as of this encounter
--- OUTSIDE RECORDS SUMMARY | 2022-04-17 15:21 | XMS_ITS | Encounter Summary ---
:1980 Author Organization [facility] Address [address] [place] [address] Care Team Providers Name Role Phone Anny Daily Sven WAKEFIELD CNP Primary Care Provider [phone] Reason for Visit Reason Comments Routine Visit Encounter Details Date Type Department Care Team Description 12/01/2015 Routine Lin 1515 Nevaeh Aldana Routine Obstetrics/Gynecolog MD Charles Visit y [address] [place] [address] [phone] Social History Tobacco Use Types Packs/Day Years Used Date Smoking Tobacco: Never Assessed Sex Assigned at Date Recorded Not on file documented as of this encounter Last Filed Vital Signs Vital Sign Reading Time Taken Comments Blood Pressure 106/62 12/01/2015 1:01 PM CDT Pulse - - Temperature - - Respiratory Rate - - Oxygen Saturation - - Inhaled Oxygen Concentration - - Weight 96 kg (211 lb 9.6 oz) 12/01/2015 1:01 PM CDT Height - - Body Mass Index 31.25 09/13/2015 1:17 PM POWER PROJECT MANAGER documented in this encounter Progress Notes Nevaeh Aldana MD - 12/31/2015 10:07 AM CDT Addended by: NEVAEH ALDANA on: 12/31/2015 10:07 AM Modules accepted: Orders R PROJECT MANAGER Nevaeh Aldana MD - 12/01/2015 1:16 PM CDT Discussed weight gain. Recommend increase exercise. Has appointment in Mental Health in January. movement - Positive No complaints. 1 Hr glucose & Hgb next visit F/U in 4 weeks documented in this encounter Plan of Treatment Not on filedocumented as of this encounter Visit Diagnoses Diagnosis AMA (advanced maternal age) primigravida 35+, second trimester - Primary Previous gastric bypass affecting pregna ncy, antepartum Screening for iron deficiency anemia Screening for diabetes mellitus documented in this encounter Care Teams International Accounting Manager Relationship Specialty Start Date End Date Anny Daily, CAVALRY OFFICER, BILLING ASSOCIATE PCP - General 12/16/13 04/09/16 [address] [place] [id number] documented as of this encounter
--- OUTSIDE RECORDS SUMMARY | 2022-04-17 15:21 | XMS_ITS | Encounter Summary ---
:1980 Author Organization [facility] Address [address] [place] [address] Care Team Providers Name Role Phone Anny Daily Sven WAKEFIELD, PASTORAL ASSISTANT Primary Care Provider [phone] Reason for Visit Reason Comments Ultrasound Results Encounter Details Date Type Department Care Team Description 03/05/2016 Telephone [place] 1515 Merlin Kim, Ultra sound Results Obstetrics/Gynecolog y 1515 [facility] . [address] [place] [address] [address] [place] [address] (Wo rk) Social History Tobacco Use Types Packs/Day Years Used Date Smoking Tobacco: Never Assessed Sex Assigned at Date Recorded Not on file documented as of this encounter Nursing Notes Zofia Marin LPN - 03/07/2016 2:22 PM CDT called pt and let her know of results. pt verbalized understanding. Merlin Kim MD - 03/05/2016 1:08 PM CDT Please call patient. Notify patient that Ultrasound done 03/04/2016: Normal growth, 3,157 g (7lb 0 oz) 61%. OBSTETRICAL ULTRASOUND - ANATOMIC SURVEY, 03/04/2016 CLINICAL INDICATIONS:?? The patient is a 35-year-old female, 1 para 0, here for anatomic survey to check growth. ?? TECHNIQUE:?? Multiple sonographic images were obtained transabdominally. FINDINGS:?? There is a single gestation in cephalic presentation.?? Amniotic fluid is normal.?? Placenta is posterior.?? ANATOMIC SURVEY? Four-chamber heart:?? Normal Stomach:? Normal Kidneys:? Normal Bladder:? Normal BIOMETRY DATA ?? Biparietal Diameter:?? 93 mm, 37 weeks 6 days. Head Circumference:?? 339 mm, 39 weeks 0 days. Abdominal Circumference:?? 328 mm, 36 weeks 5 days. Femur Length:?? 73 mm, 37 weeks 3 days. Humerus Length:?? 64 mm, 37 weeks 1 days. H/A ratio:?? 1.03 EFW:?? 3157 grams. ?? Percentile:?? 61% (based on LMP). CONCLUSIONS: Gestational age by LMP/dating US:?? 38 weeks 0 days. ?? Gestational age by today's US:?? 37 weeks 6 days. ?? FAHAD by LMP/dating US:?? 03/18/2016 FAHAD by today's US:?? 03/29/2016 Measurements are consistent with dates. IMPRESSION:?? There has been appropriate growth since the previous ultrasound from 08/06/2015. documented in this encounter Plan of Treatment Not on filedocumented as of this encounter Visit Diagnoses Not on filedocumented in this encounter Care Teams English Instructor Relationship Specialty Start Date End Date Anny Daily, FARM IMPLEMENT ENGINE MECHANIC, PASTORAL ASSISTANT PCP - General 12/16/13 04/09/16 [address] [place] [address] documented as of this encounter
--- OUTSIDE RECORDS SUMMARY | 2022-04-17 15:21 | XMS_ITS | Encounter Summary ---
:1980 Author Organization [facility] Address [address], [place] [address] Care Team Providers Name Role Phone Radha Armendariz MD Primary Care Provider Reason for Visit Reason Onset Date Comments 05/11/2016 Encounter Details Date Type Department Care Team Description 05/11/2016 Telephone Specialty Center 3931 Remedios Renteria, RN [address] [place], [place] [address] Social History Tobacco Use Types Packs/Day Years Used Date Smoking Tobacco: Former Smokeless Tobacco: Never Alcohol Use Standard Drinks/Week Comments No 0 (1 standard drink = 0.6 oz pure alcoho l) Sex Assigned at Date Recorded Not on file documented as of this encounter Miscellaneous Notes Note - Remedios Renteria RN - 05/11/2016 11:27 AM CDT Pt is experiencing nipple pain on the right side. She was using the nipple shield, but now is not. That's when the pain came. Pinched nipple when done nursing. Suggested she should be seen documented in this encounter Plan of Treatment Not on filedocumented as of this encounter Visit Diagnoses Not on filedocumented in this encounter Care Teams Engineer Technician Relationship Specialty Start Date End Date Radha Armendariz MD PCP - General 05/04/16 03/19/18 [address], [place] [address] documented as of this encounter
--- OUTSIDE RECORDS SUMMARY | 2022-04-17 15:21 | XMS_ITS | Encounter Summary ---
:1980 Author Organization [facility] Address [address] [place] [address] Care Team Providers Name Role Phone Anny Daily Sven WAKEFIELD CNP Primary Care Provider [phone] Reason for Visit Reason Comments Routine Visit Encounter Details Date Type Department Care Team Description 01/28/2016 Routine [place] 1515 Merlin Kim Routine Obstetrics/Gynecolog MD [place] Visit y [address] [place] [address] [place] [address] [phone] Social History Tobacco Use Types Packs/Day Years Used Date Smoking Tobacco: Never Assessed Sex Assigned at Date Recorded Not on file documented as of this encounter Last Filed Vital Signs Vital Sign Reading Time Taken Comments Blood Pressure 100/58 01/28/2016 9:51 AM CDT Pulse - - Temperature - - Respiratory Rate - - Oxygen Saturation - - Inhaled Oxygen Concentration - - Weight 97.1 kg (214 lb) 01/28/2016 9:51 AM CDT Height - - Body Mass Index 31.6 09/13/2015 1:17 PM SALON SALES CONSULTANT documented in this encounter Progress Notes Merlin Kim MD - 01/28/2016 10:10 AM CDT Had follow up with Psychiatrist - no medication at this time. Has been to childbirth class. Movement - Positive No complaints. F/U in 2 weeks documented in this encounter Plan of Treatment Not on filedocumented as of this encounter Visit Diagnoses Diagnosis AMA (advanced maternal age) primigravida 35+, third trimester - Primary documented in this encounter Care Teams Cap Coverer Relationship Specialty Start Date End Date Anny Daily APRN, STEEL BARREL REAMER PCP - General 12/16/13 04/09/16 [address] [place] [address] documented as of this encounter
--- OUTSIDE RECORDS SUMMARY | 2022-04-17 15:21 | XMS_ITS | Encounter Summary ---
:1980 Author Organization [facility] Address [address] [place] [address] Care Team Providers Name Role Phone Anny Daily Sven WAKEFIELD CNP Primary Care Provider [phone] Reason for Visit Reason Comments Routine Visit Encounter Details Date Type Department Care Team Description 02/18/2016 Routine [place] 1515 Merlin Kim Routine Obstetrics/Gynecolog MD [place] Visit y [address] [place] [address] [phone] Social History Tobacco Use Types Packs/Day Years Used Date Smoking Tobacco: Never Assessed Sex Assigned at Date Recorded Not on file documented as of this encounter Last Filed Vital Signs Vital Sign Reading Time Taken Comments Blood Pressure 92/54 02/18/2016 9:36 AM CDT Pulse - - Temperature - - Respiratory Rate - - Oxygen Saturation - - Inhaled Oxygen Concentration - - Weight 98.9 kg (218 lb) 02/18/2016 9:36 AM CDT Height - - Body Mass Index 32.19 09/13/2015 1:17 PM OFFICE MANAGER RECEPTIONIST documented in this encounter Progress Notes Merlin Kim MD - 02/18/2016 9:49 AM CDT Movement - Positive No complaints. Questions answered. F/U in 1 week documented in this encounter Plan of Treatment Not on filedocumented as of this encounter Visit Diagnoses Diagnosis AMA (advanced maternal age) primigravida 35+, third trimester - Primary documented in this encounter Care Teams Aprn Relationship Specialty Start Date End Date Anny Daily APRN, COIN MACHINE SERVICER REPAIRER PCP - General 12/16/13 04/09/16 [address] [place] [address] documented as of this encounter
--- OUTSIDE RECORDS SUMMARY | 2022-04-17 15:21 | XMS_ITS | Encounter Summary ---
:1980 Author Organization [facility] Address [address] [place] [address] Care Team Providers Name Role Phone Anny Daily ASHU, HOME SCHOOL COORDINATOR Primary Care Provider [phone] Reason for Visit Reason Comments LAB RESULTS Encounter Details Date Type Department Care Team Description 08/20/2015 Telephone Merlin Workman MD LAB RESULTS Obstetrics/Gynecolog y [address] [place] [address] [place] [address] [phone] (Wo rk) Social History Tobacco Use Types Packs/Day Years Used Date Smoking Tobacco: Never Assessed Sex Assigned at Date Recorded Not on file documented as of this encounter Nursing Notes Danni Davenport LPN - 08/20/2015 3:47 PM CST Pt notified of urine culture result and informed that Rx for antibiotic was sent to her pharmacy. DATION RELATIONS MANAGER Danni Davenport LPN - 08/20/2015 3:46 PM CST ----- Message from Merlin Kim MD sent at 08/20/2015 3:24 PM FOUNDATION RELATIONS MANAGER ----- Please call patient. Urine culture - urinary tract infection. Recommend Ampicillin 500 mg every 6 hours x 10 days. Prescription faxed to [facility] in [place]. DATION RELATIONS MANAGER documented in this encounter Plan of Treatment Not on filedocumented as of this encounter Visit Diagnoses Not on filedocumented in this encounter Care Teams Automobile Detailer Relationship Specialty Start Date End Date Anny Daily APRN, HOME SCHOOL COORDINATOR PCP - General 12/16/13 04/09/16 [address] [place] [address] documented as of this encounter
--- OUTSIDE RECORDS SUMMARY | 2022-04-17 15:21 | XMS_ITS | Encounter Summary ---
:1980 Author Organization [facility] Address [address] [place] [address] Care Team Providers Name Role Phone KillianAnny APRN, IMANI Primary Care Provider [phone] Encounter Details Date Type Department Care Team Description 08/10/2015 Imaging [place] 1515 Ultras ound First trimester bleeding [address] [place] [address] Social History Tobacco Use Types Packs/Day Years Used Date Smoking Tobacco: Never Assessed Sex Assigned at Date Recorded Not on file documented as of this encounter Progress Notes Nevaeh Kim MD - 08/10/2015 12:57 PM FUNDRAISING MANAGER Quick Note: Ultrasound results discussed with patient at appointment today. Patient given a copy of the ultrasound report. RAISING MANAGER documented in this encounter Miscellaneous Notes Miscellaneous - 10/12/2016 12:26 AM CSTNotes Recorded by Nevaeh Kim MD on 08/10/2015 at 12:57 PMUltrasound results discussed with patient at appointment today. Patient given a copy of the ultrasound report. RAISING MANAGER documented in this encounter Plan of Treatment Not on filedocumented as of this encounter Procedures Procedure Name Priority Date/Time Associated Diagnosis Comme nts US OB <14 WEEKS W Routine 08/10/2015 11:39 AM First trimester Results for this EV SINGLE FUNDRAISING MANAGER bleeding procedure are i n the results section. documented in this encounter Results US OB <14 Weeks W EV Single (08/10/2015 11:39 AM FUNDRAISING MANAGER) Anatomical Region Laterality Modality Pelvis Other Study GA Study Date Study FAHAD Working FAHAD (Source) W eight (Method) Result Name Value Comments FHR 165.00 bpm GA by US Calc 59.00 days 59 CRL 1.85 cm 59 Specimen (Source) Anatomical Location Collection Method / Collectio n Time Received Time / Laterality Volume Impressions 08/10/2015 12:15 PM FUNDRAISING MANAGER IMPRESSION: 1. Tearing single living intrauterine pr egnancy with a sonographic gestational age of 8 weeks 3 days. There is been adequate interval growth compared to the prior exam. 2. Small crescentic area of fluid along the inferior aspect of the gestational sac favoring a small subchorionic hemorrhage. 3. Probable corpus luteum cyst in the ri ght ovary. Results were discussed with NEVAEH VAZQUEZ SON by the liability claims adjuster following the exam. Narrative 08/10/2015 12:15 PM FUNDRAISING MANAGER COMPARISON: 07/30/2015 TECHNIQUE: ??Transabdominal and transvag inal imaging was performed. ?? FINDINGS: Intrauterine is iden tified. Gestational sac is seen containing a fetus and yolk sac. The yolk sac measures 5 mm. There is a small hypoechoic area posteri or to the gestational sac and decidual reaction which may represent a small subchorionic hemorrhage measuring 1.2 x 0.4 x 2.3 cm. Gestational sac: Mean gestational sac di ameter measures 3.5 cm correlating with a gestational age of 8 weeks 4 days. [place]-rump length measures 1.9 cm, corre sponding to 8w3d gestational age. ?? FAHAD based on crown-rump length is 016 Embryonic/ cardiac activity is iden tified with heart rate 165 bpm. ?? Right Ovary: Measures 3.7 x 2.9 x 2.9 cm and contains a minimally complex cyst measuring 2.8 x 1.6 x 1.8 cm favor to represent the corpus luteum cyst of . Blood flow seen within the right ovary. Left Ovary: Measures 3.5 x 2.3 x 2.1 cm and appears unremarkable. No suspicious adnexal masses. Free Fluid: Yes, simple. GA by LMP: ??8w3d GA by Prior US: ??8w2d GA by today's US: ??8w3d FAHAD by today's US: 03/18/2016 Procedure Note Viktoria Lauren MD - 02/20/2016Formatt ing of this note might be different from the original. COMPARISON: 07/30/2015 TECHNIQUE: Transabdominal and transvagin al imaging was performed. FINDINGS: Intrauterine is iden tified. Gestational sac is seen containing a fetus and yolk sac. The yolk sac measures 5 mm. There is a small hypoechoic area posteri or to the gestational sac and decidual reaction which may represent a small subchorionic hemorrhage measuring 1.2 x 0.4 x 2.3 cm. Gestational sac: Mean gestational sac di ameter measures 3.5 cm correlating with a gestational age of 8 weeks 4 days. [place]-rump length measures 1.9 cm, corre sponding to 8w3d gestational age. FAHAD based on crown-rump length is 016 Embryonic/ cardiac activity is iden tified with heart rate 165 bpm. Right Ovary: Measures 3.7 x 2.9 x 2.9 cm and contains a minimally complex cyst measuring 2.8 x 1.6 x 1.8 cm favor to represent the corpus luteum cyst of . Blood flow seen within the right ovary. Left Ovary: Measures 3.5 x 2.3 x 2.1 cm and appears unremarkable. No suspicious adnexal masses. Free Fluid: Yes, simple. GA by LMP: 8w3d GA by Prior US: 8w2d GA by today's US: 8w3d FAHAD by today's US: 03/18/2016 IMPRESSION IMPRESSION: 1. Tearing single living intrauterine pr egnancy with a sonographic gestational age of 8 weeks 3 days. There is been adequate interval growth compared to the prior exam. 2. Small crescentic area of fluid along the inferior aspect of the gestational sac favoring a small subchorionic hemorrhage. 3. Probable corpus luteum cyst in the ri ght ovary. Results were discussed with NEVAEH THOMPSON by the liability claims adjuster following the exam. Transcriptions Viktoria Lauren MD - 10/12/2016 12:26 AM CSTNotes Recorded by Nevaeh Kim MD on 08/10/2015 at 12:57 PMUltrasound results discussed with patient at appointment today. Patient given a copy of the ultrasound report. Nevaeh VERDUZCO US documented in this encounter Visit Diagnoses Diagnosis First trimester bleeding Unspecified hemorrhage in early pregnanc y, antepartum documented in this encounter Care Teams Administrative Fellow Relationship Specialty Start Date End Date Anny Daily, SPRAY FOAM INSTALLER, SALES SOLUTIONS REPRESENTATIVE PCP - General 12/16/13 04/09/16 [address] [place] [id number] documented as of this encounter
--- OUTSIDE RECORDS SUMMARY | 2022-04-17 15:21 | XMS_ITS | Encounter Summary ---
:1980 Author Organization [facility] Address [address] [place] [address] Care Team Providers Name Role Phone Radha Armendariz MD Primary Care Provider Reason for Visit Reason Comments Dental Conversion Legacy EDR to [facility] convers ion Encounter Details Date Type Department Care Team Description 02/08/2017 Dental Conversion Dental Business Interface, In Edr Shell Office Dental Conversion [address] [place] [address] Social History Tobacco Use Types Packs/Day Years Used Date Smoking Tobacco: Never Assessed Sex Assigned at Date Recorded Not on file documented as of this encounter Miscellaneous Notes Miscellaneous - Interface, In Edr Dental Conversion - 02/22/2011 12:00 AM CDT 02/22/2011: Address Updated: per [facility] information Miscellaneous - Interface, In Edr Dental Conversion - 02/13/2011 12:00 AM CDT 02/13/2011: No Show Call: Miscellaneous - Interface, In Edr Dental Conversion - 02/08/2011 12:00 AM CDT 02/08/2011: New Patient Welcome Call: Miscellaneous - Interface, In Edr Dental Conversion - 01/27/2011 12:00 AM CDT 01/27/2011: Left Message: YEHUDA offered 519, 11:30, 5-27 Miscellaneous - Interface, In Edr Dental Conversion - 07/01/2007 12:00 AM CDT 07/01/2007: Incoming Phone Call: 07/01/07 pt called to see if we are accepting new pt. I told her [place] was not. documented in this encounter Plan of Treatment Not on filedocumented as of this encounter Visit Diagnoses Not on filedocumented in this encounter Care Teams Medical Office Technician Relationship Specialty Start Date End Date Radha Armendariz MD PCP - General 05/04/16 03/19/[address] [place] [address] documented as of this encounter
--- OUTSIDE RECORDS SUMMARY | 2022-04-17 15:21 | XMS_ITS | Encounter Summary ---
:1980 Author Organization [facility] Address [address] [place] [address] Care Team Providers Name Role Phone Anny Daily Sven WAKEFIELD CNP Primary Care Provider [phone] Reason for Visit Reason Comments Routine Visit Encounter Details Date Type Department Care Team Description 02/11/2016 Routine [place] 1515 Merlin Kim Routine Obstetrics/Gynecolog MD [place] Visit y [address] [place] [address] [phone] Social History Tobacco Use Types Packs/Day Years Used Date Smoking Tobacco: Never Assessed Sex Assigned at Date Recorded Not on file documented as of this encounter Last Filed Vital Signs Vital Sign Reading Time Taken Comments Blood Pressure 98/50 02/11/2016 9:57 AM CDT Pulse - - Temperature - - Respiratory Rate - - Oxygen Saturation - - Inhaled Oxygen Concentration - - Weight 99.7 kg (219 lb 11.2 oz) 02/11/2016 9:57 AM CDT Height - - Body Mass Index 32.44 09/13/2015 1:17 PM PETROLEUM TERMINAL PLANT OPERATOR documented in this encounter Progress Notes Merlin Kim MD - 02/11/2016 10:08 AM CDT 5 lb 11 oz weight gain. Some exercise. Movement - Positive No complaints. F/U in 1 week documented in this encounter Plan of Treatment Not on filedocumented as of this encounter Visit Diagnoses Diagnosis AMA (advanced maternal age) primigravida 35+, third trimester - Primary Previous gastric bypass affecting pregna ncy, antepartum documented in this encounter Care Teams Field Tax Auditor Relationship Specialty Start Date End Date Anny Daily APRN, CLIENT EXPERIENCE ADMINISTRATOR PCP - General 12/16/13 04/09/16 [address] [place] [address] documented as of this encounter
--- OUTSIDE RECORDS SUMMARY | 2022-04-17 15:21 | XMS_ITS | Encounter Summary ---
:1980 Author Organization [facility] Address [address] [place] [address] Care Team Providers Name Role Phone Anny Daily Sven WAKEFIELD CNP Primary Care Provider Reason for Visit Reason Comments Routine Visit Encounter Details Date Type Department Care Team Description 03/03/2016 Routine [place] 1515 Merlin Kim Routine Obstetrics/Gynecolog MD [place] Visit y [address] [place] [address] [phone] Social History Tobacco Use Types Packs/Day Years Used Date Smoking Tobacco: Never Assessed Sex Assigned at Date Recorded Not on file documented as of this encounter Last Filed Vital Signs Vital Sign Reading Time Taken Comments Blood Pressure 102/56 03/03/2016 9:38 AM CDT Pulse - - Temperature - - Respiratory Rate - - Oxygen Saturation - - Inhaled Oxygen Concentration - - Weight 100.5 kg (221 lb 8 oz) 03/03/2016 9:38 AM CDT Height - - Body Mass Index 32.71 09/13/2015 1:17 PM ANESTHESIA TECH documented in this encounter Progress Notes Merlin Kim MD - 03/03/2016 9:54 AM CDT Movement - Positive No complaints. Will get US for EFW. F/U in 1 week documented in this encounter Plan of Treatment Not on filedocumented as of this encounter Visit Diagnoses Diagnosis AMA (advanced maternal age) primigravida 35+, third trimester - Primary Previous gastric bypass affecting pregna ncy, antepartum documented in this encounter Care Teams Drum Loader And Unloader Relationship Specialty Start Date End Date Anny Daily, RIG SUPERINTENDENT, OENOLOGIST PCP - General 12/16/13 04/09/16 [address] [place] [address] documented as of this encounter
--- OUTSIDE RECORDS SUMMARY | 2022-04-17 15:21 | XMS_ITS | Encounter Summary ---
:1980 Author Organization [facility] Address [address] [place] [address] Care Team Providers Name Role Phone Anny Daily ASHU, GAGGERMAN Primary Care Provider [phone] Reason for Visit Reason Comments Questions Encounter Details Date Type Department Care Team Description 12/22/2015 Telephone [place] 1515 Merlin Kim MD Questions Obstetrics/Gynecolog y [address] [place] [address] [place] [address] [phone] (Wo rk) Social History Tobacco Use Types Packs/Day Years Used Date Smoking Tobacco: Never Assessed Sex Assigned at Date Recorded Not on file documented as of this encounter Nursing Notes Zofia Marin LPN - 12/22/2015 3:43 PM CDT called pt and let her know of Dr Parmar directives below. pt verbalized understanding. Merlin Kim MD - 12/22/2015 3:31 PM CDT Please call patient. Yes, other tests can be done instead of 1 Hr Glucose. Will discuss further at next appointment. Next appointment just come up to clinic, do NOT stop at the lab first. Norma Moyer - 12/22/2015 3:17 PM CDT Patient calling 27.4 weeks , history of gastric bypass surgery. Reports provider asked at last appointment if patient able to do the glucose testing. Patient initially unsure, but did verify completing the O'Pate test can be dangerous for patient's who have had a gastric bypass, and would like to know if there is another option for testing. Routed to provider to advise. documented in this encounter Plan of Treatment Not on filedocumented as of this encounter Visit Diagnoses Not on filedocumented in this encounter Care Teams Funeral Pre Arrangement Counselor Relationship Specialty Start Date End Date Anny Daily APRN, GAGGERMAN PCP - General 12/16/13 04/09/16 [address] [place] [address] documented as of this encounter
--- OUTSIDE RECORDS SUMMARY | 2022-04-17 15:21 | XMS_ITS | Encounter Summary ---
:1980 Author Organization [facility] Address [address] [place] [address] Care Team Providers Name Role Phone Anny Daily Sven WAKEFIELD CNP Primary Care Provider [phone] Reason for Visit Reason Comments Routine Visit Encounter Details Date Type Department Care Team Description 03/10/2016 Routine [place] 1515 Merlin Kim Routine Obstetrics/Gynecolog MD [place] Visit y [address] [place] [address] [phone] Social History Tobacco Use Types Packs/Day Years Used Date Smoking Tobacco: Never Assessed Sex Assigned at Date Recorded Not on file documented as of this encounter Last Filed Vital Signs Vital Sign Reading Time Taken Comments Blood Pressure 104/66 03/10/2016 9:31 AM CDT Pulse - - Temperature - - Respiratory Rate - - Oxygen Saturation - - Inhaled Oxygen Concentration - - Weight 101.4 kg (223 lb 8 oz) 03/10/2016 9:31 AM CDT Height - - Body Mass Index 33.01 09/13/2015 1:17 PM HIGH SCHOOL MUSIC DIRECTOR documented in this encounter Progress Notes Merlin Kim MD - 03/10/2016 9:49 AM CDT Headache resolved. Movement - Positive No complaints. F/U in 1 week documented in this encounter Plan of Treatment Not on filedocumented as of this encounter Visit Diagnoses Diagnosis AMA (advanced maternal age) primigravida 35+, third trimester - Primary Previous gastric bypass affecting pregna ncy, antepartum documented in this encounter Care Teams Manager Case Management Relationship Specialty Start Date End Date Anny Daily, DICE TABLE OPERATOR, BRICK AND BLOCKER AID LABOR PCP - General 12/16/13 04/09/16 [address] [place] [address] documented as of this encounter
--- OUTSIDE RECORDS SUMMARY | 2022-04-17 15:22 | XMS_ITS | Encounter Summary ---
:1980 Author Organization [facility] Address [address] [place] [address] Care Team Providers Name Role Phone KillianAnny APRN, FINISHING PAN OPERATOR Primary Care Provider [phone] Encounter Details Date Type Department Care Team Description 08/09/2015 Lab Visit [facility] [address] [place] [address] Social History Tobacco Use Types Packs/Day Years Used Date Smoking Tobacco: Never Assessed Sex Assigned at Date Recorded Not on file documented as of this encounter Plan of Treatment Not on filedocumented as of this encounter Procedures Procedure Name Priority Date/Time Associated Diagnosis Comme nts HCG, QUANTITATIVE, STAT 08/09/2015 10:40 AM Re sults for this SERUM PHARMACISTS procedure ar e in the results section. documented in this encounter Results (ABNORMAL) HCG, Quantitative, Serum (08/09/2015 10:40 AM PHARMACISTS) [facility] gist Method Time Signature HCG For 1,000 (H) 0 - 6 HP CONVERSION mIU/L Comment: ? Reference Ranges 0-1 week ? 5-50 1-2 weeks ?50-500 2-3 weeks ?100-5,000 3-4 weeks ?500-10,000 1-2 months ? 1,000-200,0 00 2-3 months ? 15,000-200, 000 2nd trimester ? - - - - 3rd trimester ? - - - - Tumor marker ? <5 Consider heterophile antibody interferen ce in women of child-bearing age if serum HCG is persis tently elevated to a mild degree over a period of several wee ks or months. Confirmation with a urine test or serum HCG by an alternate test method may be helpful. He terophile antibodies occur in 1% of the general population an d may interfere with any serum immunoassay (many common prote in, hormone, and tumor marker tests). Specimen Anatomical Collection Method Collection Time Receive d Time (Source) Location / / Volume Laterality 08/09/2015 10:40 08/09/2015 3:37 AM PHARMACISTS PM PHARMACISTS Narrative HP CONVERSION - 08/09/2015 4:26 PM PHARMACISTS Performed at [facility], [facility] [place] [address] CLIA number [id number] Anny Daily APRN, CNP LAB_1 Performing Organization Address City/State/ZIP Code Phon e Number HP CONVERSION documented in this encounter Visit Diagnoses Diagnosis documented in this encounter Care Teams Psychologist Educational Relationship Specialty Start Date End Date nAny Daily APRN, CNP PCP - General 12/16/13 04/09/16 [address] [place] [address] documented as of this encounter
--- OUTSIDE RECORDS SUMMARY | 2022-04-17 15:22 | XMS_ITS | Encounter Summary ---
:1980 Author Organization [facility] Address [address] [place] [address] Care Team Providers Name Role Phone KillianAnny APRN, IMANI Primary Care Provider [phone] Reason for Visit Reason Comments Concerns Encounter Details Date Type Department Care Team Description 08/06/2015 Nurse Triage [facility] Jasbir Brooks Pre gnancy Concerns Services-GOAT FARMER MD Julio [id number] [place] [address], [address] [place] [address] [address] [place] [address] [place], [place] [phone] (Wo rk) [address] [phone] Social History Tobacco Use Types Packs/Day Years Used Date Smoking Tobacco: Never Assessed Sex Assigned at Date Recorded Not on file documented as of this encounter Nursing Notes Anjana Vasquez RN - 08/06/2015 7:18 PM CST Protocol: - ABDOMINAL PAIN LESS THAN 20 WEEKS [id number] Affirmative: [1] Intermittent lower abdominal pain (e.g., cramping) AND [2] present > 24 hours Disposition of See Physician Within 24 Hours suggested. Sx present since yesterday afternoon 08/05/15, sx of intermittent low abdominal pain, spotting. Advised pt. to be seen in . Pt. states understanding. Affirmative: MILD vaginal bleeding (e.g., < 1 pad / hour) or SPOTTING Disposition of See Physician Within 24 Hours suggested. WELDER documented in this encounter Plan of Treatment Not on filedocumented as of this encounter Visit Diagnoses Not on filedocumented in this encounter Care Teams Security Systems Engineer Relationship Specialty Start Date End Date Anny Daily APRN, CAN SEALER PCP - General 12/16/13 04/09/16 [address] [place] [id number] documented as of this encounter
--- OUTSIDE RECORDS SUMMARY | 2022-04-17 15:22 | XMS_ITS | Encounter Summary ---
:1980 Author Organization [facility] Address [address] [place] [address] Care Team Providers Name Role Phone Anny Daily APRN, SECURITY LEAD Primary Care Provider [phone] Reason for Visit Reason Comments Lab Questions Encounter Details Date Type Department Care Team Description 08/08/2015 Telephone [facility] Anny Rosas, ASHU, Lab Questions [address] [place] [address] [address] Banks [phone] [place], [place] [address] (Wo rk) Social History Tobacco Use Types Packs/Day Years Used Date Smoking Tobacco: Never Assessed Sex Assigned at Date Recorded Not on file documented as of this encounter Nursing Notes Sheridan Luna RN - 08/08/2015 10:04 AM CST Pt was in the [facility] ER yesterday for vaginal bldg in early . She had an HCG done and was told to come back tomorrow for another one. Pt would like to get it done in BV. Call placed to theon call in OB, who stated she would have to go back to [facility] to get that drawn and bring printout to appoint. Pt informed. MACHINE OPERATOR documented in this encounter Plan of Treatment Not on filedocumented as of this encounter Visit Diagnoses Not on filedocumented in this encounter Care Teams Adjunct Faculty Mathematics Department Relationship Specialty Start Date End Date Anny Daily APRN, SECURITY LEAD PCP - General 12/16/13 04/09/16 [address] [place] [id number] documented as of this encounter
--- OUTSIDE RECORDS SUMMARY | 2022-04-17 15:22 | XMS_ITS | Encounter Summary ---
:1980 Author Organization [facility] Address [address] [place] [address] Care Team Providers Name Role Phone Killian, Anny Machuca APRN, CNP Primary Care Provider [phone] Reason for Visit Reason Comments Follow-up Encounter Details Date Type Department Care Team Description 07/19/2015 Office Visit [facility] Francine Calderon Pelvi c cramping (Primary Dx); Services-EP TECHNOLOGIST IMANI [place]KE[place] Unsure of LMP (last menstrual period) as reason for ultrasound scan [address] [facility], [address] [facility] [address] [place] [address] [id number] [phone] Social History Tobacco Use Types Packs/Day Years Used Date Smoking Tobacco: Never Assessed Sex Assigned at Date Recorded Not on file documented as of this encounter Last Filed Vital Signs Vital Sign Reading Time Taken Comments Blood Pressure 105/59 07/19/2015 2:18 PM EVENT MARKETING COORDINATOR Pulse 70 07/19/2015 2:18 PM EVENT MARKETING COORDINATOR Temperature - - Respiratory Rate - - Oxygen Saturation - - Inhaled Oxygen Concentration - - Weight 86.2 kg (190 lb) 07/19/2015 2:18 PM EVENT MARKETING COORDINATOR Height - - Body Mass Index 28.06 06/22/2015 11:12 AM CDT documented in this encounter Progress Notes Francine Calderon, IMANI WAKEFIELD - 07/19/2015 4:40 PM CST CHIEF COMPLAINT: First trimester cramping SUBJECTIVE: Lennie Sal is a 35 y.o. female who presents to the clinic for first trimester cramping and f/u [facility] ED apt. Pt was seen yesterday at [facility] ED for RLQ pain. See visit on Care Everywhere. She states +UPT 07-18-2015. Had been having cramping by right ovary for 1 week and with positive UPT decided to be evaluated at ED. Labs: UPT: Positive, UA: Negative, Quant: 4691. US: #1 Multiple cystic structures and e ndometrial complex, 1 of which contains echogenic tissue, #2 no clear gestational sac or yolks sac #3 findings may indicate failed IUP, early IUP, or pseudo-gestational sac from an ectopic , #4 correlation with serum Quant or US recommended. No extraovarian adnexal mass noted. Patient states LMP 06-08-2015. She is not sure of LMP and could be one week late. Menses every 25 days and no control used. 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 Lost 160# and menses returned 2 monthly interval after surgery. Using PNV as she has been trying to conceive for the past 4 years. Today continues to have pelvic cramping but no change from yesterday. Using Tylenol 2 tabs daily. Advised to increase p.r.n. and avoid ibuprofen at this time. No VB. She does not have a history of miscarriage. She reports nausea but no emesis. Discussed Unisom/VitB6 combo. Medical HX- see Epic record. Surgical HX- see Epic record. Obstetric HX- see Epic record. Adverse Drug Reactions: Reviewed and updated. Medications: Reviewed and updated. ROS: All within normal limits except for those noted in HPI OBJECTIVE: Vital Signs: BP 105/59 mmHg Pulse 70 Wt 190 lb (86.183 kg) LMP 06/08/2015 General: Patient alert, in NAD. Genitourinary: External genitalia: normal without lesions Vagina: normal appearing vaginal epithelium. No discharge or lesions Cervix: No CMT, normal appearance. No discharge or lesions. Uterus: normal size, shape, consistency and nontender Adenexa: normal size, nontender, no masses Urethra: Nontender, no discharge Bladder: Nontender, no palpable masses Anus: normal, no hemorrhoids. Rectal: deferred Psychiatric: Alert & oriented with normal affect and insight. Patient does not appear depressed or anxious. ASSESSMENT: First trimester cramping Nausea PLAN: Labs: Blood type, antibody screen now. Quant tomorrow, 48 hr since last draw at [facility] ED. If increasing, will discuss US timing with MD. Would consider repeat by Sunday if cramping continues. SAB precautions given. PNV Unisom/Vit B6 prn nausea. TT: 20 minutes, CT: 15 minutes discussing the 1st TMS cramping, POC and SAB precautions. Dictation disclaimer: Some notes are completed with voice-recognition dictation software. Typographical errors may result. Please contact me via [employer] staff message if you note any errors requiring clarification. T MARKETING COORDINATOR documented in this encounter Plan of Treatment Not on filedocumented as of this encounter Visit Diagnoses Diagnosis Pelvic cramping - Primary Unspecified symptom associated with fema le genital organs Unsure of LMP (last menstrual period) as reason for ultrasound scan Encounter for routine screening for malf ormation using ultrasonics documented in this encounter Care Teams Acid Painter Relationship Specialty Start Date End Date Anny Daily APRN, PHARMACOLOGY TEACHER PCP - General 12/16/13 04/09/16 [address] [place] [id number] documented as of this encounter
--- OUTSIDE RECORDS SUMMARY | 2022-04-17 15:22 | XMS_ITS | Encounter Summary ---
:1980 Author Organization [facility] Address [address] [place] [address] Care Team Providers Name Role Phone Anny Daily Sven LABORATORY SPECIALIST, TELECOMMUNICATIONS NETWORK PLANNER Primary Care Provider Reason for Visit Reason Comments Concerns Encounter Details Date Type Department Care Team Description 07/19/2015 Nurse Triage [facility] [place]ine, Pregn sukhwinder Concerns Services-THREAD SPOOLER LABORATORY SPECIALIST, TELECOMMUNICATIONS NETWORK PLANNER [address] [facility], [address] [place] [address] Dr [address] [place] [address] [place], [place] [phone] (Wo rk) [address] [phone] Social History Tobacco Use Types Packs/Day Years Used Date Smoking Tobacco: Never Assessed Sex Assigned at Date Recorded Not on file documented as of this encounter Nursing Notes Amelia Ching RN - 07/19/2015 12:29 PM CST Protocol: - ABDOMINAL PAIN LESS THAN 20 WEEKS [id number] Affirmative: Patient wants to be seen Disposition of See Within 12 - 24 Hours (Office or Urgent Care) suggested. Primip 5 5/7wks calling to be seen today for ongoing cramping. Pt was seen In ER over the weekend and was told she is about 6wks gestation.Pt states they did an US but were not able to see anything. Pt continues to have intermittent mild to moderate cramping. States it is less frequent today than yesterday but is more painful. Pt says she thinks her LMP was 06/08/15. Requesting appt for today. Appt scheduled. Advised rest and increase fluids and may have tylenol if needed until seen today in clinic ILLMENT COORDINATOR documented in this encounter Plan of Treatment Not on filedocumented as of this encounter Visit Diagnoses Not on filedocumented in this encounter Care Teams Oil And Gas Drafter Relationship Specialty Start Date End Date Anny Daily APRN, TELECOMMUNICATIONS NETWORK PLANNER PCP - General 12/16/13 04/09/16 [address] [place] [address] documented as of this encounter
--- OUTSIDE RECORDS SUMMARY | 2022-04-17 15:22 | XMS_ITS | Encounter Summary ---
:1980 Author Organization [facility] Address [address] [place] [address] Care Team Providers Name Role Phone Anny Daily APRN, CNP Primary Care Provider [phone] Encounter Details Date Type Department Care Team Description 07/22/2015 Imaging [facility] with uncertain Services-Ultrasound viability, fetus [address] [place] [address], [address] [place] [address] Social History Tobacco Use Types Packs/Day Years Used Date Smoking Tobacco: Never Assessed Sex Assigned at Date Recorded Not on file documented as of this encounter Progress Notes Francine Calderon APRN, CNP - 07/22/2015 11:05 AM FARMER VEGETABLE Quick Note: US reviewed by Dr. Brooks who will be seeing pt today for f/u apt. MS-IMANI ER VEGETABLE documented in this encounter Miscellaneous Notes Miscellaneous - 10/12/2016 1:08 AM CSTNotes Recorded by Francine Calderon APRN, CNP on 07/22/2015 at 11:[address] Brooks who will be seeing pt today for f/u apt. MS-IMANI ER VEGETABLE documented in this encounter Plan of Treatment Not on filedocumented as of this encounter Procedures Procedure Name Priority Date/Time Associated Diagnosis Comme nts US OB <14 WEEKS W Routine 07/22/2015 9:30 AM with Re sults for this EV SINGLE FARMER VEGETABLE uncertain procedure ar e in viability, fetus 1 the resul ts section. documented in this encounter Results US OB <14 Weeks W EV Single (07/22/2015 9:30 AM FARMER VEGETABLE) Anatomical Region Laterality Modality Pelvis Other Specimen (Source) Anatomical Location Collection Method / Collectio n Time Received Time / Laterality Volume Impressions 07/22/2015 10:38 AM FARMER VEGETABLE IMPRESSION: Irregular gestational sac measures approximately 5 weeks 0 days. No embryonic pole is identified at this early stage. Recommend follow-up sonography. Narrative 07/22/2015 10:38 AM FARMER VEGETABLE COMPARISON: ? TECHNIQUE: ??Transabdominal and transvag inal imaging was performed. ?? FINDINGS: No embryonic pole is identifie d at this early stage. Gestational sac: Irregular, measuring 1. 0 cm, corresponding with 5 weeks 0 days. Right Ovary: Measures 4.6 x 3.2 x 3.6 cm and Probable corpus luteum. Left Ovary: Measures 3.4 x 2.0 x 1.6 cm and Appears unremarkable. No suspicious adnexal masses. Free Fluid: No significant free fluid. GA by LMP: ??5w5d GA by Prior US: ? GA by today's US: ??n/a FAHAD by today's US: ? Procedure Note Kt Beatty MD - 02/20/2016Formatti ng of this note might be different from the original. COMPARISON: TECHNIQUE: Transabdominal and transvagin al imaging was performed. FINDINGS: No embryonic pole is identifie d at this early stage. Gestational sac: Irregular, measuring 1. 0 cm, corresponding with 5 weeks 0 days. Right Ovary: Measures 4.6 x 3.2 x 3.6 cm and Probable corpus luteum. Left Ovary: Measures 3.4 x 2.0 x 1.6 cm and Appears unremarkable. No suspicious adnexal masses. Free Fluid: No significant free fluid. GA by LMP: 5w5d GA by Prior US: GA by today's US: n/a FAHAD by today's US: IMPRESSION IMPRESSION: Irregular gestational sac me asures approximately 5 weeks 0 days. No embryonic pole is identified at this early stage. Recommend follow-up sonography. Transcriptions Kt Beatty MD - 10/12/2016 1:08 AM CSTNotes Recorded by Francine Calderon APRN, CNP on 07/22/2015 at 11:[address] Brooks who will be seeing pt today for f/u apt. MS-SALES AND IN HOME DELIVERY SPECIALIST Francine Calderon APRN, CNP RAD US documented in this encounter Visit Diagnoses Diagnosis with uncertain viability , fetus 1 documented in this encounter Care Teams Printing Roller Handler Relationship Specialty Start Date End Date Anny Daily APRN, CNP PCP - General 12/16/13 04/09/16 [address] [place] [address] documented as of this encounter
--- OUTSIDE RECORDS SUMMARY | 2022-04-17 15:22 | XMS_ITS | Encounter Summary ---
:1980 Author Organization [facility] Address [address] [place] [address] Care Team Providers Name Role Phone Anny Daily APRN, IMANI Primary Care Provider [phone] Reason for Visit Reason Comments Appt. Needed Encounter Details Date Type Department Care Team Description 08/09/2015 Telephone [place] 1515 Merlin Kim MD Appt. Needed Obstetrics/Gynecolog y [address] [place] [address] [place] [address] [place] [address] [phone] (Wo rk) Social History Tobacco Use Types Packs/Day Years Used Date Smoking Tobacco: Never Assessed Sex Assigned at Date Recorded Not on file documented as of this encounter Nursing Notes Brianne Andrews, RN - 08/09/2015 4:50 PM CST Left message for pt to call back. Anny Raman called fraire nurse to request appointment prior to 08/19. Pt experiencing cramping and bleeding. HCG's decreasing requesting to be seen tomorrow with Dr. Kim. Pt to call back [phone] to schedule appointment. UCT MARKETING MANAGER documented in this encounter Plan of Treatment Not on filedocumented as of this encounter Visit Diagnoses Not on filedocumented in this encounter Care Teams Librarian Special Collections Relationship Specialty Start Date End Date Anny Daily, CHEST PAINTING AND SEALING SUPERVISOR, TIMBER RIDER PCP - General 12/16/13 04/09/16 [address] [place] [id number] documented as of this encounter
--- OUTSIDE RECORDS SUMMARY | 2022-04-17 15:22 | XMS_ITS | Encounter Summary ---
:1980 Author Organization [facility] Address [address] [place] [address] Care Team Providers Name Role Phone Anny Daily APRN, IMANI Primary Care Provider [phone] Reason for Visit Reason Comments Concerns Encounter Details Date Type Department Care Team Description 08/09/2015 Telephone [place] 1515 Natasha [place], RN Pregna ncy Concerns Obstetrics/Gynecolog y [address] [place] [id number] Social History Tobacco Use Types Packs/Day Years Used Date Smoking Tobacco: Never Assessed Sex Assigned at Date Recorded Not on file documented as of this encounter Nursing Notes Merlin Kim MD - 08/10/2015 12:17 PM CST Patient seen today in the clinic - see chart notes. ISHING MACHINE OPERATOR Natasha [place], RN - 08/09/2015 4:56 PM CST Reason for Call: Lab results requested. Next Steps: Document further recommendations and route to appropriate person or pool. Patient IS expecting a call back from Care Team. Additional Information: Patient called. Seen in clinic with Anny Daily today 08-09-15. See clinic notes. Patient was seen in ED on Sunday08-06-15. Had US and saw a heartbeat. HCG was 94,837. Had repeat HCG today; was 1000. Has been having a small amount of bleeding and mild cramping since Sunday. Says Anny Daily advised her to contact OBGYN. Routed to Dr. Kowalski [phone] ISHING MACHINE OPERATOR documented in this encounter Plan of Treatment Not on filedocumented as of this encounter Visit Diagnoses Not on filedocumented in this encounter Care Teams Booky Relationship Specialty Start Date End Date Anny Daily, YOGHURT MAKER, MARKETING ADMINISTRATIVE ASSISTANT PCP - General 12/16/13 04/09/16 [address] [place] [id number] documented as of this encounter
--- OUTSIDE RECORDS SUMMARY | 2022-04-17 15:22 | XMS_ITS | Encounter Summary ---
:1980 Author Organization [facility] Address [address] [place] [address] Care Team Providers Name Role Phone BullittAnny APRN, CNP Primary Care Provider [phone] Reason for Visit Reason Comments Pharyngitis Encounter Details Date Type Department Care Team Description 07/27/2015 Hospital Encounter [facility] Dion Lassiter Acute tonsillitis [place]MD [address] [facility] [address] [place] [address] [facility] [phone] [place], [place] [address] Social History Tobacco Use Types Packs/Day Years Used Date Smoking Tobacco: Never Assessed Sex Assigned at Date Recorded Not on file documented as of this encounter Last Filed Vital Signs Vital Sign Reading Time Taken Comments Blood Pressure 107/60 07/27/2015 7:42 PM CAKE INSPECTOR Pulse 76 07/27/2015 7:42 PM CAKE INSPECTOR Temperature 37.8 ??C (100 ??F) 07/27/2015 7:42 PM CAKE INSPECTOR Respiratory Rate 16 07/27/2015 7:42 PM CAKE INSPECTOR Oxygen Saturation - - Inhaled Oxygen Concentration - - Weight - - Height - - Body Mass Index - - documented in this encounter Medications at Time of Discharge Medication Sig Dispensed Refills Start Date End Date amoxicillin-clavulanate Take 10 mLs by mouth 200 mL 0 08/06/2015 (aka AUGMENTIN) oral 2 times daily for 10 liquid days. history gastric bypass, swollen throat hard to swallow. acetaminophen-codeine Take 1-2 tablets by 15 tablet 0 07/2708/10/2015 (aka TYLENOL NO.3) mouth every 6 hours 300-30 MG tablet as needed for Pain for up to 20 days. Maximum acetaminophen dose is 4000 mg in 24 hours Calcium Citrate-Vitamin Take by mouth. 0 10/08/19 13 05/28/2017 D (CITRACAL + D OR) cholecalciferol (VITAMIN Take 1,000 Units by 0 05/28/2017 D3) 1000 UNITS tablet mouth daily (every 24 hours). ERYTHROMYCIN BASE TBEC 1 tab po qid for 10 40 0 11/0105/28/2017 250 MG OR days Vit-Fe Take by mouth. 0 07/27/201505/28 Fumarate-FA ( OR) documented as of this encounter ED Notes Dion Lassiter MD - 07/27/2015 8:42 PM CST Subjective: Patient ID: Lennie Sal is an 35 y.o. female. Chief Complaint: HPI Comments: Patient started with sore throat symptoms this past week, on Sunday [facility] for strep which was negative. She is continued to have increasing sore throat symptoms is more on her left side finding it difficult with pain to swallow. Not had any vomiting or diarrhea. She is status post gastric bypass. She's about 6 weeks now. Has been takingsome B6 at nighttime helping a.m. nausea. Patient is a 35 y.o. female presenting with pharyngitis. The history is provided by the patient and a significant other. Pharyngitis (SORE THROAT) This is a new problem. The current episode started more than 2 days ago. The problem occurs constantly. The problem has been gradually worsening. Pertinent negatives include no chest pain, no abdominalpain, no headaches and no shortness of breath. Review of Systems Respiratory: Negative for shortness of breath. Cardiovascular: Negative for chest pain. Gastrointestinal: Negative for abdominal pain. Neurological: Negative for headaches. Objective: BP 107/60 mmHg Pulse 76 Temp(Src) 37.8 ??C (100 ??F) (Oral) Resp 16 LMP 06/12/2015 Physical Exam Constitutional: She is oriented to person, place, and time. She appears well-developed. HENT: Head: Normocephalic. Right Ear: External ear normal. Left Ear: External ear normal. Nose: Nose normal. The pharynx shows mild erythema of the tonsil is acutely erythematous and 3+ in size on the left side with the bulging up onto the soft palate the lymph nodes are swollen and tender at the angle of thejaw reproducing some of the pain symptoms. Uvula is midline trachea is midline. Eyes: Conjunctivae are normal. No scleral icterus. Neck: Normal range of motion. Neck supple. Cardiovascular: Intact distal pulses. No murmur heard. Pulmonary/Chest: Effort normal and breath sounds normal. Abdominal: Soft. There is no tenderness. Musculoskeletal: She exhibits no edema. Neurological: She is alert and oriented to person, place, and time. She exhibits normal muscle tone.Coordination normal. Skin: Skin is warm. No rash noted. She is not diaphoretic. Psychiatric: She has a normal mood and affect. Procedures Assessment: The encounter diagnosis was Acute tonsillitis. MDM Plan: Acute tonsillitis more on the left side suggests bacterial cause. There is significant swelling butdid not have clinical findings to suggest peritonsillar abscess as yet. We discussed indications formore emergent recheck. We have provided dexamethasone 10 mg IM in office for the acute swelling and pain symptoms. Tylenol with codeine is prescribed to dose 1 or 2 q.4-6 hours p.r.n. pain. She preferred liquid antibiotic will dose Augmentin extra strength dosing 10 ML p.o. b.i.d. with meals for up to10 days. If not showing continued improvement with this treatment or having increased difficulty with swallowing then to emergency room. INSPECTOR Radha Allen RN - 07/27/2015 8:38 PM CST She states she has less swelling after the Decadron. INSPECTOR documented in this encounter Miscellaneous Notes Medication History - Tony Christopher MD - 07/27/2015 8:42 PM CST INPATIENT MEDS Encounter Date: 07/27/15 acetaminophen-codeine (TYLENOL #3) 300-30 mg per tablet Start Date:07/27/15, End Date:08/10/15, Frequency:EVERY 6 HOURS PRN *No Administrations Recorded amoxicillin-clavulanate (AUGMENTIN) 600-42.9 mg/5 mL suspension Start Date:07/27/15, End Date:08/06/15, Frequency:2 TIMES DAILY *No Administrations Recorded dexamethasone (DECADRON) injection 10 mg Start Date:07/27/15, End Date:07/27/15, Frequency:ONCE Taken Dose Action User Route Site Recorded Comment Reason 07/27/152016 10 mg Given Radha Allen RN Intramuscular Left Ventrogluteal 07/27/152016 - - PNV NO.115/IRON FUMARATE/FA ( #[id number] ACID ORAL) Start Date:-, End Date:-, Frequency:- *No Administrations Recorded INSPECTOR ED AVS Snapshot - Tony Christopher MD - 07/27/2015 8:42 PM CST Images from the original note were not included. [facility] [address] [place] [address] Dept: [phone] [email or web address] Lennie Sal 07/27/2015 7:44 PM Hospital Encounter Description: Female : 1980 Department: [place] [facility] Dept Thank you for choosing [facility] for your health care visit with Dion Lassiter MD. We are happy to care for you and provide this summary of your visit. Your primary veterinarian laboratory animal care iscurrently listed as Anny Daily, PLANE CAPTAIN, ASBESTOS SHINGLE INSPECTOR. HERE IS WHAT YOU NEED TO KNOW To learn how you can take steps to stay as healthy as you can be visit [email or web address] Discharge Instructions Tonsillitis: After Your Visit Your Care Instructions Tonsillitis is an infection of the tonsils that is caused by bacteria or a virus. The tonsils are inthe back of the throat and are part of the immune system. Tonsillitis typically lasts from a few days up to a couple of weeks. Tonsillitis caused by a virus goes away on its own. Tonsillitis caused by the bacteria that causes strep throat is treated with antibiotics. You and your doctor may consider surgery to remove the tonsils (tonsillectomy) if you have serious complications or repeat infections. Follow-up care is a carrillo part of your treatment and safety. Be sure to make and go to all appointments, and call your doctor if you are having problems. It's also a good idea to know your test results and keep a list of the medicines you take. How can you care for yourself at home? ?? If your doctor prescribed antibiotics, take them as directed. Do not stop taking them just because you feel better. You need to take the full course of antibiotics. ?? Gargle with warm salt water. This helps reduce swelling and relieve discomfort. Gargle once an hour with 1 teaspoon of salt mixed in 8 fluid ounces of warm water. ?? Take an cwto-plf-iomonut pain medicine, such as acetaminophen (Tylenol), ibuprofen (Advil, Motrin), or naproxen (Aleve). Be safe with medicines. Read and follow all instructions on the label. No oneyounger than 20 should take aspirin. It has been linked to Kellie syndrome, a serious illness. ?? Be careful when taking jabi-qpd-ixrpwqm cold or flu medicines and Tylenol at the same time. Many of these medicines have acetaminophen, which is Tylenol. Read the labels to make sure that you are not taking more than the recommended dose. Too much acetaminophen (Tylenol) can be harmful. ?? Try an anpl-ios-swdkown throat spray to relieve throat pain. ?? Drink plenty of fluids. Fluids may help soothe an irritated throat. Drink warm or cool liquids (whichever feels better). These include tea, soup, and juice. ?? Do not smoke, and avoid secondhand smoke. Smoking can make tonsillitis worse. If you need help quitting, talk to your doctor about stop-smoking programs and medicines. These can increase your chances of quitting for good. ?? Use a vaporizer or humidifier to add moisture to your bedroom. Follow the directions for cleaningthe machine. When should you call for help? Call your doctor now or seek immediate medical care if: ?? Your pain gets worse on one side of your throat. ?? You have a new or higher fever. ?? You notice changes in your voice. ?? You have trouble opening your mouth. ?? You have any trouble breathing. ?? You have much more trouble swallowing. ?? You have a fever with a stiff neck or a severe headache. ?? You are sensitive to light or feel very sleepy or confused. Watch closely for changes in your health, and be sure to contact your doctor if: ?? You do not get better after 2 days. Where can you learn more? Go to [employer] and enter M655 in the search box. Current as of: July 17, 2014 Content Version: 10.5 ?? [id number] [employer]. HERE IS WHAT YOU NEED TO DO Call your clinic if: You develop new symptoms Your symptoms worsen unexpectedly You are not improving as expected You have questions about your visit or medications Your to do list Future Appointments Provider Department Dept Phone 07/30/2015 11:[address] Ultrasound [phone] CHECK IN: Please arrive 15 min prior to your exam. PREPARATION INSTRUCTIONS: You should drink 16 ounces of water to be finished 45 minutes before the exam. Keep your bladder full. Future Orders Complete By Ordering Dept. OB Early Single W/Ev < 14 Weeks 07/30/2015 (Approximate) [place] [facility]-REPRESENTATIVE PHYSICAL THERAPY CONSULT ADULT/PEDS (AMB) As directed [facility] Scheduling Instructions: Your provider has recommended an appointment with [facility]. You may call [phone] to schedule your appointment. If you prefer, a senior power scheduler will contact you within the next 3 business days to assist you in setting up this appointment. This recommended service/s may not be covered by your insurance coverage. To find out your specific benefit coverage, please call the number on your insurance card. PSYCHIATRY CONSULT ADULT/PEDS (AMB) As directed [place] [facility] Scheduling Instructions: Your provider has recommended an appointment with [facility]. You may call [phone] to schedule your appointment. If you prefer, a senior power scheduler will contact you within the next 3business days to assist you in setting up this appointment. This recommended service/s may not be covered by your insurance coverage. To find out your specific benefit coverage, please call the number on your insurance card. PSYCHOLOGY CONSULT ADULT/PEDS (ZARIA) As directed [place] [facility] Scheduling Instructions: Your provider has recommended an appointment with [facility]. You may call [phone] to schedule your appointment. If you prefer, a senior power scheduler will contact you within the next 3business days to assist you in setting up this appointment. This recommended service/s may not be covered by your insurance coverage. To find out your specific benefit coverage, please call the number on your insurance card. HERE IS INFORMATION FROM TODAY'S VISIT Reason for Visit Pharyngitis (SORE THROAT) Reason for Visit History Health issues considered by your clinician today Acute tonsillitis If you had any tests, you will be notified of your abnormal results by your clinic. Medications administered today Administered Action dexamethasone (DECADRON) injection 10 mg 07/27/2015 Given MEDICATIONS As of today's visit, these are your current medications DOSAGE acetaminophen-codeine (TYLENOL #3) 300-30 mg per tablet Take 1-2 tablets by mouth every 6 hours as needed for Pain for up to 20 days. Maximum acetaminophen dose is 4000 mg in 24 hours amoxicillin-clavulanate (AUGMENTIN) 600-42.9 mg/5 mL suspension Take 10 mLs by mouth 2 times daily for 10 days. history gastric bypass, swollen throat hard to swallow. CALCIUM PHOSPHATE TRIB/VIT D3 (CITRACAL + D ORAL) (Taking) Take by mouth. cholecalciferol (VITAMIN D3) 1,000 unit Tab (Taking) Take 1,000 Units by mouth daily (every 24 hours). lansoprazole (PREVACID) 15 mg capsule (Taking) Take 1 capsule by mouth daily (every 24 hours). Takebefore meals PNV NO.115/IRON FUMARATE/FA ( #[id number] ACID ORAL) (Taking) Take by mouth. Vital signs from your visit Your Vital Signs Were BP Pulse Temp(Src) Resp Last Period Smoking Status 107/60 mmHg 76 37.8 ??C (100 ??F) (Oral) 16 06/12/2015 Former Smoker Allergies as of 07/27/2015 Adhesive Tape-Silicones 02/24/2014 Rash Immunization History Reviewed on 03/29/2015 INFLUENZA TIV 0.5 ML (36+ MOS) 08/07/2008 Tdap (Adacel) 01/10/2011 About You Date Of Sex Race Ethnicity Preferred Language 1980 Female White Non- Portuguese This document contains confidential information about your health and care. It is provided directlyto you for your personal, private use only. INSPECTOR Letter - Dion Lassiter MD - 07/27/2015 12:00 AM CST [facility] [address] [place] [address] July 27, 2015 Patient: Lennie Sal Date of : 1980 Date of Visit: 07/27/2015 To Whom It May Concern: Lennie Sal was seen and treated in our department on 07/27/2015. She has acute infection treated today. Has missed some work in past week and advise off work 07/28/2015 result of illness. If you have any questions or concerns, please don't hesitate to call. Sincerely, Dion Lassiter MD INSPECTOR documented in this encounter Plan of Treatment Not on filedocumented as of this encounter Visit Diagnoses Diagnosis Acute tonsillitis Triage Assessment Note - Isha Tamez, RN - 07/27/2015 7:41 PM CAKE INSPECTOR x4-5 days, hurts to swallow, left side of jaw/teeth painful, left ear painful- denies congestion-negative strep test on Sunday INSPECTOR documented in this encounter Care Teams Sewing Supervisor Relationship Specialty Start Date End Date Anny Daily APRN, ASBESTOS SHINGLE INSPECTOR PCP - General 12/16/13 04/09/[address] [place] [address] documented as of this encounter
--- OUTSIDE RECORDS SUMMARY | 2022-04-17 15:22 | XMS_ITS | Encounter Summary ---
:1980 Author Organization [facility] Address [address] [place] [address] Care Team Providers Name Role Phone Anny Daily APRN, CNP Primary Care Provider [phone] Reason for Visit Reason Comments LAB RESULTS Encounter Details Date Type Department Care Team Description 07/21/2015 Telephone [facility] Jasbir Brooks, LAB RESULTS Services-SPECIAL EDUCATION BUS DRIVER [address] [facility], [address] [place] [address] [place] [phone] Social History Tobacco Use Types Packs/Day Years Used Date Smoking Tobacco: Never Assessed Sex Assigned at Date Recorded Not on file documented as of this encounter Nursing Notes Rhonda Harrison, RN - 07/21/2015 3:30 PM CST Calling for HCG results, results given. Pt informed of rising levels. [employer] documented in this encounter Plan of Treatment Not on filedocumented as of this encounter Visit Diagnoses Not on filedocumented in this encounter Care Teams Human Factors Specialist Relationship Specialty Start Date End Date Anny Daily APRN, LINE WORKER PCP - General 12/16/13 04/09/[address] [place] [address] documented as of this encounter
--- OUTSIDE RECORDS SUMMARY | 2022-04-17 15:22 | XMS_ITS | Encounter Summary ---
:1980 Author Organization [facility] Address [address] [place] [address] Care Team Providers Name Role Phone Anny Daily APRN, CNP Primary Care Provider [phone] Encounter Details Date Type Department Care Team Description 07/19/2015 Lab Visit [facility] Pelvic cramping [address] , [address] [place] [address] Social History Tobacco Use Types Packs/Day Years Used Date Smoking Tobacco: Never Assessed Sex Assigned at Date Recorded Not on file documented as of this encounter Progress Notes Francine Calderon APRN, CNP - 07/20/2015 1:07 PM BRICK SHADER Quick Note: Discussed Quant with Dr. Ribeiro. Rising from prior value 4691 on 07-18 at [facility] ED.This Quant was drawn early by -clinical laboratory aide. Will still have pt repeat Quant today, technically 48hr from last Quant to check appropriate rise. Will also order US for . 1:07pm spoke with pt re: plan. Will schedule US and OV to follow on . Cramping decreased, no VB. MS-PUBLIC SAFETY POLICE K SHADER documented in this encounter Miscellaneous Notes Miscellaneous - 10/12/2016 1:14 AM CSTNotes Recorded by Francine Calderon APRN, CNP on 07/20/2015 at 1:[address] Ribeiro. Rising from prior value 4691 on 07-18 at [facility] ED. This Quant was drawn early by VW-clinical laboratory aide. Will still have pt repeat Quant today, technically 48hr from last Quant to check appropriate rise. Will also order US for . 1:07pm spoke with pt re: plan. Will schedule US and OV to follow on . Cramping decreased, no VB. MS-PUBLIC SAFETY POLICE K SHADER Miscellaneous - 10/12/2016 1:14 AM CSTNotes Recorded by Francine Calderon APRN, PUBLIC SAFETY POLICE on 07/20/2015 at 1:[address] Ribeiro. Rising from prior value 4691 on 07-18 at [facility] ED. This Quant was drawn early by VW-clinical laboratory aide. Will still have pt repeat Quant today, technically 48hr from last Quant to check appropriate rise. Will also order US for . 1:07pm spoke with pt re: plan. Will schedule US and OV to follow on . Cramping decreased, no VB. MS-PUBLIC SAFETY POLICE K SHADER Miscellaneous - 10/12/2016 1:14 AM CSTNotes Recorded by Francine Calderon APRN, PUBLIC SAFETY POLICE on 07/20/2015 at 1:[address] Ribeiro. Rising from prior value 4691 on 07-18 at [facility] ED. This Quant was drawn early by VW-clinical laboratory aide. Will still have pt repeat Quant today, technically 48hr from last Quant to check appropriate rise. Will also order US for . 1:07pm spoke with pt re: plan. Will schedule US and OV to follow on . Cramping decreased, no VB. MS-PUBLIC SAFETY POLICE K SHADER documented in this encounter Plan of Treatment Not on filedocumented as of this encounter Procedures Procedure Name Priority Date/Time Associated Diagnosis Comme nts BLOOD GROUP & RH Routine 07/19/2015 2:58 PM Pelvic cramping Re sults for this (BT) BRICK SHADER procedure are i n the results section. ANTIBODY SCREEN Routine 07/19/2015 2:58 PM Pelvic cramping Res ults for this BRICK SHADER procedure are i n the results section. HCG, QUANTITATIVE, Routine 07/19/2015 2:58 PM Pelvic cramping Results for this SERUM BRICK SHADER procedure ar e in the results section. documented in this encounter Results (ABNORMAL) HCG, Quantitative, Serum (07/19/2015 2:58 PM BRICK SHADER) [facility] Method Time Signature HCG For 6,478 (H) 0 - 6 HP CONVERSION mIU/L [...] Time (Source) Location / / Volume Laterality 07/19/2015 2:58 PM 5 BRICK SHADER 10:12 PM BRICK SHADER Narrative HP CONVERSION - 07/19/2015 11:21 PM BRICK SHADER Performed at [facility], [address] [place] [address] CLIA number [id number] Transcriptions 10/12/2016 1:14 AM CSTNotes Recorded by Francine Calderon APRN, CNP on 07/20/2015 at 1:[address] Ribeiro. Rising from prior value 4691 on at [facility] ED. T his Quant was drawn early by VW-clinical laboratory aide . Will still have pt repeat Quant today, technically 48hr from last Quant to check appropriate rise. Will also order US for . 1:07pm spoke with pt re: padmaja n. Will schedule US and OV to follow on . Cramping decreased, no VB. MS-PUBLIC SAFETY POLICE Francine Calderon APRN, CNP LAB_1 Performing Organization Address City/State/ZIP Code Phon e Number HP CONVERSION BLOOD GROUP & RH (BT) (07/19/2015 2:58 PM BRICK SHADER) athologist Signature Blood Type O POS HP CONVERSION Specimen Anatomical Collection Method Collection Time Receive d Time (Source) Location / / Volume Laterality 07/19/2015 2:58 PM 5 BRICK SHADER 10:14 PM BRICK SHADER Narrative HP CONVERSION - 07/19/2015 11:15 PM BRICK [place]ADER [place] [address] CLIA number [id number] Transcriptions 10/12/2016 1:14 AM CSTNotes Recorded by Francine Calderon APRN, CNP on 07/20/2015 at 1:[address] Ribeiro. Rising from prior value 4691 on at [facility] ED. T his Quant was drawn early by VW-clinical laboratory aide . Will still have pt repeat Quant today, technically 48hr from last Quant to check appropriate rise. Will also order US for . 1:07pm spoke with pt re: padmaja n. Will schedule US and OV to follow on . Cramping decreased, no VB. MS-PUBLIC SAFETY POLICE Francine Calderon APRN, CNP PN BLOOD BANK ORDERS Performing Organization Address City/State/ZIP Code Phon e Number HP CONVERSION ANTIBODY SCREEN (07/19/2015 2:58 PM BRICK SHADER) athologist Signature Antibody Screen NEG HP CONVERSION Specimen Anatomical Collection Method Collection Time Receive d Time (Source) Location / / Volume Laterality 07/19/2015 2:58 PM 07/19/ 5 BRICK SHADER 10:14 PM BRICK SHADER Narrative HP CONVERSION - 07/19/2015 11:15 PM BRICK SHADER Performed at [facility], [address] [place] [address] CLIA number [id number] Transcriptions 10/12/2016 1:14 AM CSTNotes Recorded by Francine Calderon APRN, PUBLIC SAFETY POLICE on 07/20/2015 at 1:[address] Ribeiro. Rising from prior value 4691 on at [facility] ED. T his Quant was drawn early by [employer]-clinical laboratory aide . Will still have pt repeat Quant today, technically 48hr from last Quant to check appropriate rise. Will also order US for . 1:07pm spoke with pt re: padmaja n. Will schedule US and OV to follow on . Cramping decreased, no VB. MS-PUBLIC SAFETY POLICE Francine Calderon APRN, CNP PN BLOOD BANK ORDERS Performing Organization Address City/State/ZIP Code Phon e Number HP CONVERSION documented in this encounter Visit Diagnoses Diagnosis Pelvic cramping Unspecified symptom associated with fema le genital organs documented in this encounter Care Teams Methods And Procedures Analyst Relationship Specialty Start Date End Date Anny Daily APRN, PUBLIC SAFETY POLICE PCP - General 12/16/13 04/09/16 [address] [place] [address] documented as of this encounter
--- OUTSIDE RECORDS SUMMARY | 2022-04-17 15:22 | XMS_ITS | Encounter Summary ---
:1980 Author [facility] Address [address] [place] [address] Care Team Providers Name Role Phone Anny Daily APRN, DIAMOND WHEEL EDGER Primary Care Provider [phone] Reason for Visit Reason Comments UPDATE Encounter Details Date Type Department Care Team Description 08/10/2015 Telephone [facility] Anny Daily APRN , UPDATE Medicine [facility] [address] [facility] [address] [address] AMITA Bearden [address] [place] [address] [phone] (Wo rk) Social History Tobacco Use Types Packs/Day Years Used Date Smoking Tobacco: Never Assessed Sex Assigned at Date Recorded Not on file documented as of this encounter Nursing Notes Jaky Horvath - 08/19/2015 11:05 AM CST Patient calling back for update. Please advise. PORTER Anny Daily APRN, DIAMOND WHEEL EDGER - 08/17/2015 5:07 PM CST I called Lennie and thanked her for giving me the update. I asked her to call back and let me know how she is doing as I have been thinking about her. Shannan Fall LPN - 08/10/2015 1:43 PM CST Reason for Call: FYI Only--No follow up needed. Additional Information:FYI only in regards to US. Can close encounter. PORTER Sierra Calderón - 08/10/2015 12:45 PM CST Update only for Josemanuel Daily. Pt had an US today & states all is well with baby. No call back needed. PORTER documented in this encounter Plan of Treatment Not on filedocumented as of this encounter Visit Diagnoses Not on filedocumented in this encounter Care Teams Chief Commercial Officer Relationship Specialty Start Date End Date Anny Daily, DIVISION CONTROLLER, DIAMOND WHEEL EDGER PCP - General 12/16/13 04/09/16 [address] [address] AM[place] [address] documented as of this encounter
--- OUTSIDE RECORDS SUMMARY | 2022-04-17 15:22 | XMS_ITS | Encounter Summary ---
:1980 Author Organization [facility] Address [address] [place] [address] Care Team Providers Name Role Phone Anny Daily APRN, CNP Primary Care Provider [phone] Reason for Visit Reason Comments Lab/Rad Request Encounter Details Date Type Department Care Team Description 07/20/2015 Notes/Orders [facility] Francine Calderon, Pregn sukhwinder with Services-COMPUTER REPAIR TECHNICIAN [place] uncertain [address], [address] [facility] viability, fetus 1 [address] [place], [place] (Primary Dx) [place] [address] [phone] Social History Tobacco Use Types Packs/Day Years Used Date Smoking Tobacco: Never Assessed Sex Assigned at Date Recorded Not on file documented as of this encounter Progress Notes Francine Calderon APRN, CNP - 07/20/2015 11:56 AM CST Quant was drawn by [employer] yesterday. New order placed for today as this would be 48 since last draw as pt was advised. MS-WHEEL FILLER ENT CONSUMER MARKETER documented in this encounter Plan of Treatment Not on filedocumented as of this encounter Visit Diagnoses Diagnosis with uncertain viability , fetus 1 - Primary documented in this encounter Care Teams Therapy Administrative Assistant Relationship Specialty Start Date End Date Anny Daily, HEALTH PROGRAM SPECIALIST, WHEEL FILLER PCP - General 12/16/13 04/09/[address] [place] [address] documented as of this encounter
--- OUTSIDE RECORDS SUMMARY | 2022-04-17 15:22 | XMS_ITS | Encounter Summary ---
:1980 [facility] Address [address] [place] [address] Care Team Providers Name Role Phone KillianAnny APRN, IMANI Primary Care Provider [phone] Encounter Details Date Type Department Care Team Description 07/30/2015 Imaging [facility] Wanted [address] [place] [address] Social History Tobacco Use Types Packs/Day Years Used Date Smoking Tobacco: Never Assessed Sex Assigned at Date Recorded Not on file documented as of this encounter Plan of Treatment Not on filedocumented as of this encounter Procedures Procedure Name Priority Date/Time Associated Diagnosis Comme nts US OB <14 WEEKS W Routine 07/30/2015 11:39 AM Wanted Results for this EV SINGLE POWER ELECTRONICS ENGINEER procedure are i n the results section. documented in this encounter Results US OB <14 Weeks W EV Single (07/30/2015 11:39 AM POWER ELECTRONICS ENGINEER) Anatomical Region Laterality Modality Pelvis Other Specimen (Source) Anatomical Location Collection Method / Collectio n Time Received Time / Laterality Volume Impressions 07/30/2015 11:48 AM POWER ELECTRONICS ENGINEER IMPRESSION: Single live intrauterine as described. Narrative 07/30/2015 11:48 AM POWER ELECTRONICS ENGINEER COMPARISON: 07/22/2015 TECHNIQUE: ??Transabdominal and transvag inal imaging was performed. ?? FINDINGS: ? Gestational sac: Unremarkable. [place]-rump length measures 0.8 cm, corre sponding to 6w5d gestational age. ?? FAHAD 03/19/2016. ?? Embryonic/ cardiac activity is iden tified with heart rate 120 bpm. ?? Right Ovary: Measures 4.3 x 2.7 x 3.0 cm and Probable corpus luteum cyst measuring 3.4 x 2.6 x 1.9 cm. Left Ovary: Measures 2.6 x 1.3 x 1.1 cm and Appears unremarkable. No suspicious adnexal masses. Free Fluid: No significant free fluid. GA by LMP: ??6w6d GA by Prior US: ??N/A GA by today's US: ??6w5d FAHAD by today's US: 03/19/2016 Procedure Note Tyler Jang MD - 02/20/2016Forma tting of this note might be different from the original. COMPARISON: 07/22/2015 TECHNIQUE: Transabdominal and transvagin al imaging was performed. FINDINGS: Gestational sac: Unremarkable. [place]-rump length measures 0.8 cm, corre sponding to 6w5d gestational age. FAHAD 03/19/2016. Embryonic/ cardiac activity is iden tified with heart rate 120 bpm. Right Ovary: Measures 4.3 x 2.7 x 3.0 cm and Probable corpus luteum cyst measuring 3.4 x 2.6 x 1.9 cm. Left Ovary: Measures 2.6 x 1.3 x 1.1 cm and Appears unremarkable. No suspicious adnexal masses. Free Fluid: No significant free fluid. GA by LMP: 6w6d GA by Prior US: N/A GA by today's US: 6w5d FAHAD by today's US: 03/19/2016 IMPRESSION IMPRESSION: Single live intrauterine pre gnancy as described. Jasbir Brooks MD [facility] documented in this encounter Visit Diagnoses Diagnosis Wanted Other general counseling and advice for contraceptive management documented in this encounter Care Teams Medicare Sales Executive Relationship Specialty Start Date End Date Anny Daily, ARTIFICIAL SNOW MAKING MACHINE OPERATOR, GROUP FITNESS INSTRUCTOR PCP - General 12/16/13 04/09/16 [address] [address] [place] [address] documented as of this encounter
--- OUTSIDE RECORDS SUMMARY | 2022-04-17 15:22 | XMS_ITS | Encounter Summary ---
:1980 [facility] Address [address] [place] [address] Care Team Providers Name Role Phone KillianAnny APRN, CNP Primary Care Provider [phone] Reason for Visit Reason Comments Follow-up Encounter Details Date Type Department Care Team Description 07/22/2015 Office Visit [facility] Jasbir Brooks Services-HOOP ROLLS OPERATOR MD Julio (Primary Dx) [address] [facility], [address] [place] [address] [place], [place] [phone] (Wo rk) [address] [phone] Social History Tobacco Use Types Packs/Day Years Used Date Smoking Tobacco: Never Assessed Sex Assigned at Date Recorded Not on file documented as of this encounter Last Filed Vital Signs Vital Sign Reading Time Taken Comments Blood Pressure 107/57 07/22/2015 11:45 AM MATHEMATICAL ENGINEERING TECHNICIAN Pulse 68 07/22/2015 11:45 AM MATHEMATICAL ENGINEERING TECHNICIAN Temperature - - Respiratory Rate - - Oxygen Saturation - - Inhaled Oxygen Concentration - - Weight 85.3 kg (188 lb) 07/22/2015 11:45 AM MATHEMATICAL ENGINEERING TECHNICIAN Height 175.3 cm (5' 9) 07/22/2015 11:45 AM MATHEMATICAL ENGINEERING TECHNICIAN Body Mass Index 27.76 07/22/2015 11:45 AM MATHEMATICAL ENGINEERING TECHNICIAN documented in this encounter Progress Notes Jasbir Brooks - 07/22/2015 12:10 PM CST Progress Notes signed by Jasbir Brooks MD at 07/23/15 0758 Author: Jasbir Brooks MD Service: (none) Author Type: Physician Filed: 07/23/15 0758 Note Time: 07/22/151822 Status: Signed Healthcare Social Worker: Jasbir Brooks MD (Physician) NAME: LENNIE SAL MR#: [id number] CSN: [id number] AUTHENTICATING CLINICIAN: Jasbir Brooks MD CONFIRM #: [id number] LOC: 512 CLINIC PROGRESS NOTE DATE OF VISIT: 07/22/2015 : 1980 Lennie Sal is a 35-year-old female, 1, para 0, last menstrual period 06/12/2015, which would place her at 5 weeks and 5 days gestation. She presents today for ultrasound followup for an early , her recent history was a presentation to the [facility] emergency department on 07/18 with cramps and a positive test. HCG at that time was 4691m and an ultrasoundshowed no documented intrauterine or adnexal . She followed up here on the with Kathi Calderon, Nurse Practitioner, and had a followup HCG of 6478 and then again and HCG on the of 8541 so this is just shy of doubling. An ultrasound was performed earlier this morning and shows an irregular 1 cm gestational sac corresponding with 5 weeks and 0 days. Normal adnexal structure. No suspicious adnexal masses. No free fluid. No embryonic pole was identified at this early stage. The ultrasound findings were consistent with an early with viability indeterminate. I explained to the patient and her significant other with who was with her today, that the HCG rise in the ultrasound are both ambiguous for the viability of the this early on. Ectopic has been essentially ruled out. They are both encouraged by the fact that there is now a discrete gestational sac, when there was not at [place] 4 days ago. Further HCG levels were discussed, but I think it will be more informative to repeat ultrasound in 1 week, which was scheduled. In the meantime if the patient should experience any cramping or bleeding, then she should contact us for inst ructions. The possibility of some 1st trimester loss was discussed, as well the possibility of this being a normal intrauterine simply too early to document viability. GERI:SAMIRA C: CONFIRM #: [id number] EMATICAL ENGINEERING TECHNICIAN documented in this encounter Plan of Treatment Not on filedocumented as of this encounter Visit Diagnoses Diagnosis Wanted - Primary Other general counseling and advice for contraceptive management documented in this encounter Care Teams Cutlery Grinder Relationship Specialty Start Date End Date Anny Daily APRN, MID LEVEL PROJECT MANAGER PCP - General 12/16/13 04/09/16 [address] [address] [place] [address] documented as of this encounter
--- OUTSIDE RECORDS SUMMARY | 2022-04-17 15:22 | XMS_ITS | Encounter Summary ---
:1980 Author Organization [facility] Address [address] [place] [address] Care Team Providers Name Role Phone Anny Daily APRN, CNP Primary Care Provider [phone] Reason for Visit Reason Comments ULTRASOUND Encounter Details Date Type Department Care Team Description 07/20/2015 Notes/Orders [facility] Francine Calderon, Pregn sukhwinder with Services-CHILD CARE ASSOCIATE TEACHER SPACE AND MISSILE OPERATIONSIMANI uncertain [address] [facility], [address] [facility] viability, fetus 1 [address] [place], [place] (Primary Dx) [place] [id number] [phone] Social History Tobacco Use Types Packs/Day Years Used Date Smoking Tobacco: Never Assessed Sex Assigned at Date Recorded Not on file documented as of this encounter Plan of Treatment Not on filedocumented as of this encounter Visit Diagnoses Diagnosis with uncertain viability , fetus 1 - Primary documented in this encounter Care Teams Kitchen Aide Relationship Specialty Start Date End Date Anny Daily APRN, IMANI PCP - General 12/16/13 04/09/16 [address] [address] [place] [address] documented as of this encounter
--- OUTSIDE RECORDS SUMMARY | 2022-04-17 15:22 | XMS_ITS | Encounter Summary ---
:1980 Author Organization [facility] Address [address] [place] [address] Care Team Providers Name Role Phone Anny Daily APRN, INSOLE DEPARTMENT WORKER Primary Care Provider [phone] Reason for Visit Reason Comments LAB RESULTS Encounter Details Date Type Department Care Team Description 08/09/2015 Telephone [facility] Anny Daily APRN , LAB RESULTS Medicine [facility] [address] [facility] [address] [address] [place] [address] [place] [address] [phone] (Wo rk) Social History Tobacco Use Types Packs/Day Years Used Date Smoking Tobacco: Never Assessed Sex Assigned at Date Recorded Not on file documented as of this encounter Nursing Notes Anny Daily APRN, IMANI - 08/09/2015 4:43 PM CST I called Lennie and told her that her HCG levels had reduced to a value of 1,000. I recommended rechecking the levels in 2 days. I also called her OB's office to determine what the next step is. She hasno further questions at this time. OY documented in this encounter Plan of Treatment Not on filedocumented as of this encounter Visit Diagnoses Not on filedocumented in this encounter Care Teams Irrigation Service Technician Relationship Specialty Start Date End Date [place], Anny M, DIGITAL COURT REPORTER, INSOLE DEPARTMENT WORKER PCP - General 12/16/13 04/09/16 [address] [address] [id number] documented as of this encounter
--- OUTSIDE RECORDS SUMMARY | 2022-04-17 15:22 | XMS_ITS | Encounter Summary ---
:1980 Author Organization [facility] Address [address] [place] [address] Care Team Providers Name Role Phone Anny Daily APRN, CNP Primary Care Provider [phone] Reason for Visit Reason Comments Follow-up Encounter Details Date Type Department Care Team Description 08/09/2015 Office Visit [facility] Anny Daily Preg nancy (Primary Dx); Medicine IMANI [place] Spotting [address] [address] [address] [place] [address] [place] [phone] (Wo rk) Social History Tobacco Use Types Packs/Day Years Used Date Smoking Tobacco: Never Assessed Sex Assigned at Date Recorded Not on file documented as of this encounter Last Filed Vital Signs Vital Sign Reading Time Taken Comments Blood Pressure 102/58 08/09/2015 10:05 AM PROFILER HAND Pulse 96 08/09/2015 10:05 AM PROFILER HAND Temperature - - Respiratory Rate - - Oxygen Saturation - - Inhaled Oxygen Concentration - - Weight 86.2 kg (190 lb) 08/09/2015 10:05 AM PROFILER HAND Height - - Body Mass Index 28.06 07/22/2015 11:45 AM PROFILER HAND documented in this encounter Patient Instructions Patient InstructionsAnny Daily APRN, CNP - 08/09/2015 10:23 AM PROFILER HAND 1. Today we are checking your HCG levels. I will forward the results to you. The ER clinician did mention follow up with OB in 2 days so I would recommend trying to get in today. 2. Please get your CBC checked in 2 weeks. ILER HAND documented in this encounter Progress Notes Anny Daily APRN, CNP - 08/09/2015 12:47 PM CST Chief concern: Chief Complaint Patient presents with ??? Follow-up 8 weeks preg. ER: [facility]. Other concerns: see HPI Past medical history: Past Medical History Diagnosis Date ??? Depression 03/01/2012 ??? Anemia 03/01/2012 Medications: Current Outpatient Prescriptions on File Prior to Visit Medication Sig Dispense Refill ??? acetaminophen-codeine (TYLENOL #3) 300-30 mg per tablet Take 1-2 tablets by mouth every 6 hours as needed for Pain for up to 20 days. Maximum acetaminophen dose is 4000 mg in 24 hours 15 tablet 0 ??? CALCIUM PHOSPHATE TRIB/VIT D3 (CITRACAL + D ORAL) Take by mouth. ??? cholecalciferol (VITAMIN D3) 1,000 unit Tab Take 1,000 Units by mouth daily (every 24 hours). ??? lansoprazole (PREVACID) 15 mg capsule Take 1 capsule by mouth daily (every 24 hours). Take before meals 90 capsule 3 ??? PNV NO.115/IRON FUMARATE/FA ( #[id number] ACID ORAL) Take by mouth. No current facility-administered medications on file prior to visit. Adverse Drug Reactions: Allergies Allergen Reactions ??? Adhesive Tape-Silicones Rash Habits: History Social History ??? Marital Status: Significant Other/Partner Spouse Name: N/A Number of Children: N/A ??? 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 Smoking status: Former Smoker ??? Smokeless tobacco: Never Used ??? Alcohol Use: Yes Comment: Alcoholic Drinks/day: Amount:1-2 drinks; Freq:Never; ??? Drug Use: No ??? Sexual Activity: Partners: Male Other Topics Concern ??? Exercise Yes 7 days per week ??? Seat Belt Yes Social History Narrative HPI: 35 year old female presents to the clinic for follow up of a recent ER visit. She presented to [facility] on 08/07/15 for evaluation of vaginal bleeding. She is 7 weeks . She developed some cramping and spotting the day prior to her ER visit. She had passed heavier clots that day.This began after drinking a half caffeinated latte. She denied significant discomfort. Denied fever,dysuria, vaginal discharge. This is her first . She does have a history of anemia. She had the following tests done, which are listed below: Labs: Results for orders placed or performed during the hospital encounter of 08/06/15 HCG BETA QUANT, 52799 mIU/mL Final UA - Urinalysis with Reflex Micro-Negative except for OCCULT BLOOD,URINE Small (A) Negative Final. Microscopic UA normal. CBC WITH AUTO DIFFERENTIAL: WHITE BLOOD COUNT 10.9 4.5-11.0 thou/cu mm Final RED BLOOD COUNT 3.69 (L) 4.00-5.20 mil/cu mm Final HEMOGLOBIN 10.7 (L) 12.0-16.0 g/dL Final HEMATOCRIT 32.5 (L) 33.0-51.0 % Final MCV 88 80-100 fL Final MCH 29.0 26.0-34.0 pg Final MCHC 32.9 32.0-36.0 g/dL Final RDW 12.5 11.5-15.5 % Final PLATELET COUNT 336 140-440 thou/cu mm Final Wet Prep: normal results. RH(D) TYPE Positive Final Ultrasound: Single intrauterine with crown-rump length consistent with a gestational age of 7 weeks 6 days. This compares to gestational age by LMP at 7 weeks 5 days. heart rate 149 beats per minute. N gross abnormalities Today, Lennie reports light spotting, mild abdominal cramping with intermittent dizziness, and nausea. She felt feverish a day ago, however denies any documented fevers. Denies vomiting, chills, bowel or bladder symptoms, chest pain, or shortness of breath. Review of systems: See HPI. OBJECTIVE: Vital Signs: BP 102/58 mmHg Pulse 96 Wt 86.183 kg (190 lb) LMP 06/12/2015 Patient is alert, oriented, and pleasant. No acute distress. Head: Normocephalic. Eyes: PERRLA, fullEOM. External exams normal. hroat: Moist mucous membranes without lesions, erythema, or exudate. Neck: Supple, no cervical lymphadenopathy. Thyroid nontender, without swelling or nodules palpated. Respi ratory: Normal respiratory effort. Lungs are clear with good breath sounds. Heart: Regular rate and rhythm, no murmurs, rubs, gallops. Abdomen: The abdomen was soft with active bowel sounds. ASSESSMENT: Encounter Diagnoses Name Primary? Yes ??? Spotting PLAN: 1. with spotting: I have ordered a quantitative HCG for further evaluation. The ER clinician had recommended that she follow up with her OB in two days, so I encouraged her to make an appointment. Otherwise, she has an appointment on 08/19/15. She was asked to contact me if she develops any new or worsening symptoms. 2. Anemia: Recheck CBC in 2 weeks. Orders Placed This Encounter Procedures ??? Complete Blood Count-No Diff ??? HCG for -Quantitative Patient Instructions 1. Today we are checking your HCG levels. I will forward the results to you. The ER clinician did mention follow up with OB in 2 days so I would recommend trying to get in today. 2. Please get your CBC checked in 2 weeks. The patient was discharged ambulatory and in stable condition and agreed with the above plan. Dictation Disclaimer: Some notes are completed with voice-recognition dictation software. Typographical errors may result . Please contact me via [employer] staff message if you note any errors requiring clarification. ILER HAND documented in this encounter Plan of Treatment Not on filedocumented as of this encounter Visit Diagnoses Diagnosis - Primary Spotting Other specified noninflammatory disorder of vagina documented in this encounter Care Teams Television Camera Operator Relationship Specialty Start Date End Date Anny Daily APRN, CNP PCP - General 12/16/13 04/09/16 [address] [address] [place] [address] documented as of this encounter
--- OUTSIDE RECORDS SUMMARY | 2022-04-17 15:22 | XMS_ITS | Encounter Summary ---
:1980 Author Organization [facility] Address [address] [place] [address] Care Team Providers Name Role Phone Anny Daily Sven WAKE[place], IMANI Primary Care Provider [phone] Reason for Visit Reason Comments VAGINAL BLEEDING Encounter Details Date Type Department Care Team Description 08/10/2015 Initial Consult Merlin Workman [facility] Obstetrics/Gynecolog MD Charles bleeding (Primary Dx) y [address] [place] [address] [phone] Social History Tobacco Use Types Packs/Day Years Used Date Smoking Tobacco: Never Assessed Sex Assigned at Date Recorded Not on file documented as of this encounter Last Filed Vital Signs Vital Sign Reading Time Taken Comments Blood Pressure 106/60 08/10/2015 9:21 AM DIRECTOR UTILIZATION MANAGEMENT Pulse - - Temperature - - Respiratory Rate - - Oxygen Saturation - - Inhaled Oxygen Concentration - - Weight 86.2 kg (190 lb) 08/10/2015 9:21 AM DIRECTOR UTILIZATION MANAGEMENT Height - - Body Mass Index 28.06 07/22/2015 11:45 AM DIRECTOR UTILIZATION MANAGEMENT documented in this encounter Progress Notes Merlin Kim MD - 08/10/2015 12:56 PM CST SUBJECTIVE: CHIEF COMPLAINT: Falling Quant B hCG HISTORY: 35 YOF LMP: 06/12/[address] Uribe' note from 07/22/2015. Patient also had an ultrasound on 07/30/2015 - single live intrauterine , crown-rump length8 mm corresponding to 6 weeks 5 days gestation age, heart rate 120 bpm. On 08/05/2015 patient started having vaginal bleeding, it was spotting with some small clots. She went to the [facility] emergency room on 08/06/2015. Quant B hCG > 94,000. Ultrasound done - single intrauterine with a crown-rump length consistent with a gestational age of 7 weeks 6 days. heart rate 149 bpm. No abnormalities. Patient was seen in the clinic yesterday and a quantitative beta hCG was repeated quantitative beta hCG - 1,000. Patient presents today for follow-up. Patient states that she still has some spotting although it has decreased and she has some cramping.She has passed no large clots and no tissue. OB History Para Term AB TAB SAB Ectopic Multiple Living 1 Past Surgical History Procedure Laterality Date ??? Hx appendectomy ??? Cholecystectomy ??? Other surgical history 2003 SI joint fusion and cage ??? Gastric bypass surgery 02/2014 Past Medical History Diagnosis Date ??? Depression 03/01/2012 ??? Anemia 03/01/2012 HABITS: Tob - negative EtOH - negative Drugs - negative Family History Problem Relation Age of Onset ??? Cataracts Maternal Grandfather ??? Glaucoma Maternal Grandfather ??? Parkinsons Maternal Grandfather ??? Diabetes Neg Hx ??? Macular Degen Neg Hx ??? Retinal Detachment Neg Hx ??? Strabismus Neg Hx ??? Mental Illness Mother ??? Schizophrenia Mother ??? No Known Family History Problems Father ??? Cancer Maternal Grandmother breast OBJECTIVE: BP 106/60 mmHg Wt 190 lb (86.183 kg) LMP 06/12/2015 Exam performed with a nurse in the room. PELVIC: Ext Gen - WNL BUS - no infection Vagina - clear, there is no blood in the vaginal vault Cervix - there is a 2 cm clot or tissue protruding from the cervical os, this was gently grasped with a ring forceps removed and sent to pathology, soft admits a fingertip to the external os on digital exam Uterus - anterior, soft, mobile, enlarged, 6-8 week size Adnexa - clear bilaterally IMPRESSION: Intrauterine 8 weeks 3 days gestation by LMP and recent ultrasound Decreasing Quant BhCG Blood clots or tissue in os PLAN: OB Ultrasound - today - notify patient of the results Tissue sent to pathology Patient's questions were answered, patient is in agreement with this plan. Merlin Kim MD ADDENDUM: Patient had US today: IMPRESSION: 1. Tearing single living intrauterine with a sonographic gestational age of 8 weeks 3 days. There is been adequate interval growth compared to the prior exam. 2. Small crescentic area of fluid along the inferior aspect of the gestational sac favoring a small subchorionic hemorrhage. 3. Probable corpus luteum cyst in the right ovary. Ultrasound results discussed with the patient. Patient given a copy of the ultrasound report. Follow up for NOB. Recommend nothing in vagina. Call if increased bleeding, pain or other symptoms. Merlin Kim MD [place] Deputy Clerk Of Court CTOR UTILIZATION MANAGEMENT documented in this encounter Plan of Treatment Not on filedocumented as of this encounter Procedures Procedure Name Priority Date/Time Associated Comments Diagnosis CLINIC OBTAINED Routine 08/10/2015 9:58 AM First trimester Res ults for this ANATOMICAL PATHOLOGY DIRECTOR UTILIZATION MANAGEMENT bleeding procedu re are in the results section. SURGICAL ANGELA BANGURA Routine 08/10/2015 9:58 AM Re sults for this NICOLLET DIRECTOR UTILIZATION MANAGEMENT procedure are i n the results section. documented in this encounter Results Pathology Report (08/10/2015 9:58 AM DIRECTOR UTILIZATION MANAGEMENT) Specimen (Source) Anatomical Collection Method Collection Time Re ceived Time Location / / Volume Laterality 08/10/2015 9:58 AM DIRECTOR UTILIZATION MANAGEMENT Narrative HP CONVERSION - 08/12/2015 9:50 AM DIRECTOR UTILIZATION MANAGEMENT ?FINAL SURGICAL PATHOLOGY REPORT Pathology #: [id number] ? Date Obtained: 08/10/2015 ?Date Received: 08/11/2015 DIAGNOSIS: Uterine contents: ?? 1. Blood and degenerated decidual ti ssue only. ?? 2. No chorionic villi or parts identified. COMMENT: I cannot make an unequivocal diagnosis o f intrauterine in the absence of chorionic villi or part s. ?R ABHILASH HEWITT MD ? (electronic signature) ? 08/12/2015 ??09:35 CLINICAL NOTES: First trimeseter bleeding ORGAN/TISSUE SITE: Tissue from uterus GROSS DESCRIPTION: Received in formalin is a 4.0 x 1.8 x 1 .0 cm irregular michael-brown tissue admixed with clotted blood. On s ectioning, tissue is not grossly appreciated. The tissue is enti rely submitted in 9767 cassettes 1-3. ?LUNMA MICROSCOPIC DESCRIPTION: Microscopic examination performed. CPT Codes: ?83426 x 1 ? End of Report Performed at [facility] [address] [place] [address] Merlin Kim MD LAB_1 Performing Organization Address [facility] Phon e Number HP CONVERSION Clinic Obtained Tissue (08/10/2015 9:58 AM DIRECTOR UTILIZATION MANAGEMENT) Analysis Performed At Patho logist Time Signature CLINIC Received HP CONVERSION OBTAINED TISSUE Specimen Anatomical Collection Method Collection Time Receive d Time (Source) Location / / Volume Laterality 08/10/2015 9:58 AM 5 3:17 DIRECTOR UTILIZATION MANAGEMENT AM DIRECTOR UTILIZATION MANAGEMENT Narrative HP CONVERSION - 08/11/2015 3:33 AM DIRECTOR UTILIZATION MANAGEMENT Performed at [facility] [address] [place] [address] CLIA number [id number] Merlin Kim MD LAB_1 Performing Organization Address [facility] Phon e Number HP CONVERSION documented in this encounter Visit Diagnoses Diagnosis First trimester bleeding - Primary Unspecified hemorrhage in early pregnanc y, antepartum documented in this encounter Care Teams Antique Repairer Relationship Specialty Start Date End Date Anny Daily, ASHU, CONTACT CENTER ASSOCIATE PCP - General 12/16/13 04/09/16 [address] [place] [address] documented as of this encounter
--- OUTSIDE RECORDS SUMMARY | 2022-04-17 15:22 | XMS_ITS | Encounter Summary ---
:1980 Author Organization [facility] Address [address] [place] [address] Care Team Providers Name Role Phone Anny Daily APRN, CNP Primary Care Provider [phone] Encounter Details Date Type Department Care Team Description 07/20/2015 Lab Visit [facility] viability, fetus [address] [place] [address], [address] [place] [address] Social History Tobacco Use Types Packs/Day Years Used Date Smoking Tobacco: Never Assessed Sex Assigned at Date Recorded Not on file documented as of this encounter Progress Notes Francine Calderon APRN, CNP - 07/22/2015 7:02 AM STUDENT RECORDS SPECIALIST Quick Note: Pt was notified of result 07-21-2015 by LS-data reporting analyst. Pt will have US today and see Dr. Brooks afterfor apt. 7:02am notified of result. JULIO ENT RECORDS SPECIALIST documented in this encounter Miscellaneous Notes Miscellaneous - 10/12/2016 1:09 AM CSTNotes Recorded by Francine Calderon APRN, CNP on 07/22/2015 at 7:02 AMPt was notified of result 07-21-2015 by LS-data reporting analyst. Pt will have US today and see Dr. Brooks after for apt. 7:02am notified of result. MS-MACHINE BENDER ENT RECORDS SPECIALIST documented in this encounter Plan of Treatment Not on filedocumented as of this encounter Procedures Procedure Name Priority Date/Time Associated Diagnosis Comme nts HCG, QUANTITATIVE, Routine 07/20/2015 2:15 PM with R esults for this SERUM STUDENT RECORDS SPECIALIST uncertain procedure are in viability, fetus 1 the resul ts section. documented in this encounter Results (ABNORMAL) HCG, Quantitative, Serum (07/20/2015 2:15 PM STUDENT RECORDS SPECIALIST) [facility] Method Time Signature HCG For 8,544 (H) 0 - 6 HP CONVERSION mIU/L [...] Time (Source) Location / / Volume Laterality 07/20/2015 2:15 PM 5 7:22 STUDENT RECORDS SPECIALIST PM STUDENT RECORDS SPECIALIST Narrative HP CONVERSION - 07/20/2015 10:18 PM STUDENT RECORDS SPECIALIST Performed at [facility], [address] [place] [address] CLIA number [id number] Transcriptions 10/12/2016 1:09 AM CSTNotes Recorded by Francine Calderon APRN, CNP on 07/22/2015 at 7:02 AMPt was notified of result 07-21-2015 by LS-data reporting analyst. Pt will have US today and see Dr. Brooks after for apt. 7:02am notified of result. MS-MACHINE BENDER Francine Calderon APRN, CNP LAB_1 Performing Organization Address City/State/ZIP Code Phon e Number HP CONVERSION documented in this encounter Visit Diagnoses Diagnosis with uncertain viability , fetus 1 documented in this encounter Care Teams Dielectric Tester Relationship Specialty Start Date End Date Anny Daily APRN, CNP PCP - General 12/16/13 04/09/16 [address] [place] [address] documented as of this encounter
--- OUTSIDE RECORDS SUMMARY | 2022-04-17 15:23 | XMS_ITS | Encounter Summary ---
:1980 Author Organization [facility] Address [address] [place] [address] Care Team Providers Name Role Phone Xuan Dickens APRN, CNP Primary Care Provider [phone] Encounter Details Date Type Department Care Team Description 08/08/2013 Notes/Orders Lin [address] General Harmeet Rivera MD Surgery [address] [place] [address] [place] [address] [phone] (Wo rk) Social History Tobacco Use Types Packs/Day Years Used Date Smoking Tobacco: Never Assessed Sex Assigned at Date Recorded Not on file documented as of this encounter Plan of Treatment Not on filedocumented as of this encounter Visit Diagnoses Not on filedocumented in this encounter Care Teams Spindle Tester Relationship Specialty Start Date End Date Xuan Dickens APRN, SYSTEMS CONSULTANT PCP - General 03/18/12 12/01/13 [address] [facility] [place] [id number] documented as of this encounter
--- OUTSIDE RECORDS SUMMARY | 2022-04-17 15:23 | XMS_ITS | Encounter Summary ---
:1980 Author Organization [facility] Address [address] [place] [address] Care Team Providers Name Role Phone Maninder Xuangianni Machuca APRN, MACHINE SET UP TECHNICIAN Primary Care Provider [phone] Reason for Visit Reason Comments ANXIETY Encounter Details Date Type Department Care Team Description 07/11/2013 Office Visit Domi Paiz e Darvin Paul, Adjustment disorder [address] PA-C with anxiety (Primary [place] [address] [address]) [phone] [place] [address] Social History Tobacco Use Types Packs/Day Years Used Date Smoking Tobacco: Never Assessed Sex Assigned at Date Recorded Not on file documented as of this encounter Last Filed Vital Signs Vital Sign Reading Time Taken Comments Blood Pressure 132/84 07/11/2013 1:31 PM ARMORED CAR MESSENGER Pulse 80 07/11/2013 1:31 PM ARMORED CAR MESSENGER Temperature - - Respiratory Rate - - Oxygen Saturation - - Inhaled Oxygen Concentration - - Weight 157.9 kg (348 lb) 07/11/2013 1:31 PM ARMORED CAR MESSENGER Height - - Body Mass Index 49.93 10/08/2012 4:02 PM ARMORED CAR MESSENGER documented in this encounter Patient Instructions Patient InstructionsDarvin Paul PA-C - 07/11/2013 1:43 PM CST Please call the Mental Health dept. at [phone] to schedule your appointment. RED CAR MESSENGER documented in this encounter Progress Notes Darvin Paul PA-C - 07/11/2013 2:12 PM CST Subjective: Patient ID: Lennie Sal is a 33 y.o. female. Chief Complaint: HPI Comments: The patient is a 33-year-old female who presents today requesting benzodiazepines for an upcoming trip to [place]. She states that she will be going to visit her boyfriend's family andtheir relationship has been jordan in the past. She mentions the Name Valium and Xanax. She tells me that she has had both these medications at different times in the past and that they have been very helpful for her in times of back spasms the Valium made her feel very calm. I have never met this patient before. She has depression and borderline personality disorder in her problem list. I do not believe she has seen a psychiatrist rate regularly or recently. She thinks she would be interested in long-term prescriptions of benzodiazepines or some other anxiety medication. Review of Systems All other systems reviewed and are negative. Objective: Physical Exam Vitals reviewed. Constitutional: She appears well-developed. No distress. obese Psychiatric: She has a normal mood and affect. Her behavior is normal. Judgment and thought content normal. Assessment: Diagnosis (ICD9) and Associated Orders 1. Adjustment disorder with anxiety (309.24) diazepam (VALIUM) 10 mg tablet, Ambulatory referral to Psychiatry Plan: I did give the patient 24 tablets of Valium today. I think it is very important that she followup with a psychiatrist and perhaps a psychologist for her anxiety disorder. I will not refill this for her. I discussed that Valium and Xanax are the same class of medication and taking both of them is most likely not a great idea. If she cannot get in to see a psychiatrist, I recommended follow up with her PCP. RED CAR MESSENGER documented in this encounter Plan of Treatment Not on filedocumented as of this encounter Visit Diagnoses Diagnosis Adjustment disorder with anxiety ([facility]) - Primary Adjustment disorder with anxiety documented in this encounter Care Teams Interior Specialist Relationship Specialty Start Date End Date Xuan Dickens, ITINERANT TEACHER ASSISTANT, MACHINE SET UP TECHNICIAN PCP - General 03/18/12 12/01/13 [address] [place] [address] documented as of this encounter
--- OUTSIDE RECORDS SUMMARY | 2022-04-17 15:23 | XMS_ITS | Encounter Summary ---
:[address] [facility] Address [address] [place] [address] Care Team Providers Name Role Phone Anny Daily APRN, CURTAIN FRAMER Primary Care Provider [phone] Reason for Visit Reason Comments Forms Encounter Details Date Type Department Care Team Description 12/31/2013 Telephone [facility] Anny Daily APRN , [facility] [address] [facility] [address] [place] [address] [place] [address] [phone] (Wo rk) Social History Tobacco Use Types Packs/Day Years Used Date Smoking Tobacco: Never Assessed Sex Assigned at Date Recorded Not on file documented as of this encounter Nursing Notes Radha Dumont LPN - 12/31/2013 3:06 PM CDT Called pt got VM left message that letter has been faxed. Letter faxed by DA. Anny Daily APRN, CNP - 12/31/2013 3:00 PM CDT A letter has been written. Radha Dumont LPN - 12/31/2013 2:37 PM CDT Please review. Natasha Reese - 12/31/2013 2:29 PM CDT Form Tracking Primary Emr Analyst: Anny Daily Type of form (i.e. School,camp)? a letter stating pt has a rn clinician for the [facility] at [facility]. The clinic is requesting pt submit this prior to bariatric surgery Date needed: this week Mail/Pickup/Fax: Fax to fax #[phone] Have you signed a consent form for release of this information? yes documented in this encounter Miscellaneous Notes Letter - Anny Daily APRN, CNP - 12/31/2013 12:00 AM CDT Images from the original note were not included. [facility] [address] [place] [id number] Lennie Sal December 31, 2013 To whom it may concern, Lennie has designated myself, Anny Daily NP as her primary care provider. If you have any questions or concerns, please don't hesitate to call [phone]. Sincerely, KIMBER Graham T INTERPRETER documented in this encounter Plan of Treatment Not on filedocumented as of this encounter Visit Diagnoses Not on filedocumented in this encounter Care Teams Concrete Boom Operator Relationship Specialty Start Date End Date Anny Daily APRN, CURTAIN FRAMER PCP - General 12/16/13 04/09/16 [address] [place] [address] documented as of this encounter
--- OUTSIDE RECORDS SUMMARY | 2022-04-17 15:23 | XMS_ITS | Encounter Summary ---
:1980 Author Organization [facility] Address [address] [place] [address] Care Team Providers Name Role Phone KillianAnny APRN, CNP Primary Care Provider [phone] Reason for Visit Reason Comments DIZZINESS Encounter Details Date Type Department Care Team Description 09/14/2014 Hospital Encounter [facility] Doni Ayala; Dimas Parrish MD Otitis media, serous; [address] [place] [address] Sinusitis; [address] [facility] Headache(784.0); [place], [place] Fatigue [address] [id number] Social History Tobacco Use Types Packs/Day Years Used Date Smoking Tobacco: Never Assessed Sex Assigned at Date Recorded Not on file documented as of this encounter Last Filed Vital Signs Vital Sign Reading Time Taken Comments Blood Pressure 98/62 09/14/2014 2:50 PM INTERNET MARKETING MANAGER Pulse 80 09/14/2014 2:50 PM INTERNET MARKETING MANAGER Temperature 36.6 ??C (97.9 ??F) 09/14/2014 2:50 PM INTERNET MARKETING MANAGER Respiratory Rate 18 09/14/2014 2:50 PM INTERNET MARKETING MANAGER Oxygen Saturation - - Inhaled Oxygen Concentration - - Weight - - Height - - Body Mass Index - - documented in this encounter Medications at Time of Discharge Medication Sig Dispensed Refills Start Date End Date amoxicillin-clavulanate Take 1 tablet by 20 tablet 0 201409/24/2014 (aka AUGMENTIN) tablet mouth 2 times daily for 10 days. Try to take 12 hours apart with food. lansoprazole (AKA Take 1 capsule by 90 capsule 3 02/24/2014 07/27/2015 PREVACID) 15 MG mouth daily (every capsuleIndications: GERD 24 hours). Take (gastroesophageal reflux before meals disease) Calcium Citrate-Vitamin D Take by mouth. 0 201205/28/2017 (CITRACAL + D OR) cholecalciferol (VITAMIN Take 1,000 Units 0 10/0805/28/2017 D3) 1000 UNITS tablet by mouth daily (every 24 hours). docusate sodium (AKA Take 1 capsule by 60 capsule 3 12/17/19 14 07/19/2015 COLACE) 100 MG mouth 2 times capsuleIndications: daily as needed Constipation for Constipation. ERYTHROMYCIN BASE TBEC 250 1 tab po qid for 40 0 07/200305/28/2017 MG OR 10 days ferrous sulfate (FERROUS Take 325 mg by 0 014 07/27/2015 SULFATE) 325 (65 FE) MG mouth daily (every tablet 24 hours). ferrous sulfate (FERROUS Take 1 tablet by 100 tablet 3 03/1207/27/2015 SULFATE) 325 (65 FE) MG mouth daily (every tablet 24 hours). fluticasone (aka FLONASE) Place 2 sprays 16 g 0 201407/27/2015 50 MCG/ACT nasal spray into each nostril daily (every 24 hours) for 30 days. Dose is for each nostril. Indications: ALLERGIC RHINITIS MULTIVITAMIN ADULT OR Take 1 tablet by 0 09/14/19 15 07/27/2015 mouth daily (every 24 hours). Xeyjqc-PyFrh-RaGfzd-FA-Ome Take 1 tablet by 0 01/201307/27/2015 ga (MULTIVITAMIN/MINERALS mouth daily (every OR) 24 hours). documented as of this encounter ED Notes Doni Ayala MD - 09/14/2014 7:44 PM CST ED Provider Notes signed by Doni Ayala MD at 09/28/14 7717 Author: Doni Ayala MD Service: (none) Author Type: Physician Filed: 09/28/14 7945 Note Time: 09/15/14 0840 Status: Signed Bench Lathe Operator: Doni Ayala MD (Physician) NAME: LENNIE MOLINA MR#: [id number] CSN: [id number] AUTHENTICATING CLINICIAN: Doni Ayala MD CONFIRM #: [id number] LOC: 520 URGENT CARE PROGRESS NOTE DATE OF VISIT: 09/14/2014 : 1980 SUBJECTIVE: Patient is a 34-year-old female here with [place], who is her boyfriend. She has been concerned because she has had some episodes for the past couple of months where maybe every couple of weeks she will feel lightheaded for a day or so and then seem to be fine. She had a migraine-type headache, though, about 2 weeks ago, and then has been having some increased headaches for the last couple of weeks with pressure across the frontal area, and in the last 3 days, has had an off and on headache that has never gone away completely, along with lightheadedness that has been there most of the time. She said very rarely she has felt like she is spinning and it is mostly a tipsy sensation. She also, though, feels that she has been more tired and more emotional recently. She, for medications, is just currently taking vitamins, but she is concerned because on past history she had gastric bypass 6 months ago andis a little overdue for the labs she was supposed to have after that. She had a history of anemia and she is supposed to be taking iron, but has stopped it because of constipation. Past and family history negative for thyroid problems, or any other neurological problems. On social history, she works as a customer service phone rep. The rest of the complete systems review is negative. She has occasional nausea, just when she feels off balance. She denies or nursing or control use. ALLERGIES: Adhesive tape products. MEDICATIONS: Home medicines are as listed in Epic. Further social history includes her being a former smoker. Overall symptoms she describes as mostly mild, except she had noted also a little bit of tingling in her fingers off and on the last couple ofdays without chest pain or shortness of breath. OBJECTIVE: Temp 97.9, pulse 80, respirations 18, BP 98/62. She says she has been eating and drinking well and does not sound like she is orthostatic. She does have serous otitis media bilaterally and ears pop with eustachian tube maneuver. Sinuses dohave some tenderness over the frontal area, worse when tilting forward. LUNGS: Clear. HEART: Shows regular rate and rhythm. ABDOMEN AND FLANKS: Nontender. Homans sign is negative. There is no peripheral edema. NEUROLOGIC: She passes [id number], rapid alternating movements, heel-to-toe walking, strength and coordination testing, and cranial nerve testing. EKG done showed normal sinus rhythm and no other changes. We discussed the limitations of the EKG inruling out cardiac disease, but despite this she refused further stat cardiac workup, both understanding and accepting the risks of the refusal. We talked about further workup at that time and given her multiplicity of symptoms and somewhat increasing headaches recently, she did want CT scan of the head, which came back looking normal including the visualized sinuses. Lab-mccullough, we did an ALT, which came back normal; basic metabolic, which was normal; CBC, which came back normal. Thyroid testing at [facility] is still in process. screen came back negative at this time. ASSESSMENT: 1. Some elements of dizziness. 2. Serous otitis media. 3. Likely some sinusitis as she also has been blowing out some thicker drainage. 4. Headache, possibly related to the above. 5. Also some fatigue and thyroid testing is pending at this point. PLAN: Again, we went through all the testing and she knows thyroid testing is pending, and we have electedto treat her sinuses at this point, but she knows she needs followup, as there may be other potential issues, especially since there has been some emotional upheaval, although she denies any suicidal or homicidal ideation. There could be some underlying depression or other issues here and this should be followed up with her doctor, as well as further testing, if necessary, depending on her response. We are going to start her on Augmentin 875 b.i.d. x10 days, along with Flonase nasal spray, and I took her up to the front end driver and we have her set up for followup with Anny Daily in the next 3 days to go over everything here. If worsening or new symptoms, she should be seen immediately, and she should avoid driving, being on ladders, being in swimming pools, or places where getting lightheaded could be a potential problem. Again, if worsening or new symptoms, be seen immediately and then further followup, workup and management through Anny Daily. She knows that if the fatigue persists, that shewill need continued workup, as fatigue can come from a number of issues that may need further attention, so she agrees to have that followed until a cause is found or it is resolved. Again she agrees to the above follow up with comprehensive visit here. WDL:MEDQ C: CONFIRM #: [id number] RNET MARKETING MANAGER documented in this encounter Miscellaneous Notes Medication History - Tony Christopher MD - 09/14/2014 4:54 PM CST INPATIENT MEDS Encounter Date: 09/14/14 amoxicillin-clavulanate (AUGMENTIN) 875-125 mg per tablet Start Date:09/14/14, End Date:09/24/14, Frequency:2 TIMES DAILY *No Administrations Recorded fluticasone (FLONASE) 50 mcg/actuation nasal spray Start Date:09/14/14, End Date:07/27/15, Frequency:DAILY *No Administrations Recorded multivitamin (THERAGRAN) tablet Start Date:-, End Date:07/27/15, Frequency:DAILY *No Administrations Recorded RNET MARKETING MANAGER documented in this encounter Plan of Treatment Not on filedocumented as of this encounter Procedures Procedure Name Priority Date/Time Associated Comments Diagnosis ANION GAP STAT 09/14/2014 3:54 PM Results f or this INTERNET MARKETING MANAGER procedure are i n the results section. THYROID STIMULATING STAT 09/14/2014 3:54 PM Dizziness Re sults for this HORMONE INTERNET MARKETING MANAGER procedure are i n the results section. COMPLETE BLOOD STAT 09/14/2014 3:54 PM Dizziness Results for this COUNT-W/DIFF INTERNET MARKETING MANAGER procedure are i n the results section. BASIC METABOLIC PANEL STAT 09/14/2014 3:54 PM Dizziness Results for this INTERNET MARKETING MANAGER procedure are i n the results section. DIFFERENTIAL STAT 09/14/2014 3:54 PM Results f or this INTERNET MARKETING MANAGER procedure are i n the results section. ALT (SGPT) STAT 09/14/2014 3:54 PM Dizziness Results f or this INTERNET MARKETING MANAGER procedure are i n the results section. TEST Routine 09/14/2014 3:35 PM Dizziness Results for this (URINE) INTERNET MARKETING MANAGER procedure are i n the results section. ECG 12 LEAD INPATIENT STAT 09/14/2014 3:31 PM Results for this INTERNET MARKETING MANAGER procedure are i n the results section. documented in this encounter Results Differential (09/14/2014 3:54 PM INTERNET MARKETING MANAGER) athologist Signature Absolute 5.9 1.8 - 8.0 HP CONVERSION Neutrophils k/cmm Absolute 2.9 1.1 - 4.0 HP CONVERSION Lymphocytes k/cmm Absolute 0.6 0.2 - 0.8 HP CONVERSION Monocytes k/cmm Absolute 0.2 0.0 - 0.5 HP CONVERSION Eosinophils k/cmm Absolute 0.0 0.0 - 0.2 HP CONVERSION Basophils k/cmm Specimen Anatomical Collection Method Collection Time Receive d Time (Source) Location / / Volume Laterality 09/14/2014 3:54 PM 5 3:54 INTERNET MARKETING MANAGER PM INTERNET MARKETING MANAGER Narrative HP CONVERSION - 09/14/2014 4:05 PM INTERNET MARKETING MANAGER [place] [address] Doni Ayala MD LAB_1 Performing Organization Address City/[facility] Phon e Number HP CONVERSION ANION GAP (09/14/2014 3:54 PM INTERNET MARKETING MANAGER) athologist Signature ANION GAP 8 0 - 16 mEq/L HP CONVERSION Specimen Anatomical Collection Method Collection Time Receive d Time (Source) Location / / Volume Laterality 09/14/2014 3:54 PM 5 3:54 INTERNET MARKETING MANAGER PM INTERNET MARKETING MANAGER Narrative HP CONVERSION - 09/14/2014 4:24 PM INTERNET MARKETING MANAGER Performed at [facility], [address] [place] [address] Doni Ayala MD LAB_1 Performing Organization Address City/[facility] Code Phon e Number HP CONVERSION THYROID STIMULATING HORMONE (09/14/2014 3:54 PM INTERNET MARKETING MANAGER) athologist Signature Thyroid 1.31 0.20 - HP CONVERSION Stimulating 4.50 mIU/L Hormone Specimen Anatomical Collection Method Collection Time Receive d Time (Source) Location / / Volume Laterality 09/14/2014 3:54 PM 5 7:41 INTERNET MARKETING MANAGER PM INTERNET MARKETING MANAGER Narrative HP CONVERSION - 09/14/2014 8:03 PM INTERNET MARKETING MANAGER Performed at [facility], [address] [place] [address] Doni Ayala MD LAB_1 Performing Organization Address [facility] Phon e Number HP CONVERSION Complete Blood Count W/Diff (09/14/2014 3:54 PM INTERNET MARKETING MANAGER) athologist Signature White Blood Cell 9.6 3.8 - 11.0 HP CONVERSIO N Count k/cmm Red Blood Cell 4.21 3.70 - HP CONVERSION Count 5.20 m/cmm Hemoglobin 12.4 11.8 - HP CONVERSION 15.5 g/dL Hematocrit 36.1 35.0 - HP CONVERSION 46.0 % Mean Corpuscular 85.7 80.0 - HP CONVERSION Volume 100.0 fL RDW 13.7 11.0 - HP CONVERSION 15.0 % Platelet Count 279 140 - 450 HP CONVERSION k/cmm Specimen Anatomical Collection Method Collection Time Receive d Time (Source) Location / / Volume Laterality 09/14/2014 3:54 PM 5 3:54 INTERNET MARKETING MANAGER PM INTERNET MARKETING MANAGER Narrative HP CONVERSION - 09/14/2014 4:05 PM INTERNET MARKETING MANAGER Performed at [facility], [address] [place] [address] Doni Ayala MD LAB_1 Performing Organization Address [facility] Phon e Number HP CONVERSION Basic Metabolic Panel (09/14/2014 3:54 PM INTERNET MARKETING MANAGER) athologist Signature Creatinine Serum 0.5 0.4 - 1.3 HP CONVERSION mg/dL Lab Glucose 98 60 - 100 HP CONVERSION mg/dL Bicarbonate 30 23 - 33 HP CONVERSION mmol/L Chloride 102 98 - 110 HP CONVERSION mEq/L Potassium 3.9 3.5 - 5.2 HP CONVERSION mEq/L Sodium 140 137 - 147 HP CONVERSION mEq/L Blood Urea <10 5 - 26 HP CONVERSION Nitrogen mg/dL Calcium 9.8 8.5 - 10.5 HP CONVERSION mg/dL Est GFR >60 >60 HP CONVERSION Am mL/min/1.7 3m2 Est GFR Non-Afr >60 >60 HP CONVERSION Am mL/min/1.7 3m2 Comment: Normal>60, moderate decrease 30 - 59, se josi decrease 15 - 29, renal failure <15 mL/min/1.73 m2 NOTE: ??Choose the eGFR result above loida ropriate for the race of the patient. Specimen Anatomical Collection Method Collection Time Receive d Time (Source) Location / / Volume Laterality 09/14/2014 3:54 PM 5 3:54 INTERNET MARKETING MANAGER PM INTERNET MARKETING MANAGER Narrative HP CONVERSION - 09/14/2014 4:24 PM INTERNET MARKETING MANAGER Performed at [facility], [address] [place] [address] Doni Ayala MD LAB_1 Performing Organization Address [facility] Phon e Number HP CONVERSION ALT (SGPT) (09/14/2014 3:54 PM INTERNET MARKETING MANAGER) [facility] gist Method Time Signature Alanine 21 4 - 55 HP CONVERSION Aminotransferase U/L Specimen Anatomical Collection Method Collection Time Receive d Time (Source) Location / / Volume Laterality 09/14/2014 3:54 PM 5 3:54 INTERNET MARKETING MANAGER PM INTERNET MARKETING MANAGER Narrative HP CONVERSION - 09/14/2014 4:24 PM INTERNET MARKETING MANAGER Performed at [facility], [address] [place] [address] Doni Ayala MD LAB_1 Performing Organization Address [facility] Phon e Number HP CONVERSION Test (Urine) (09/14/2014 3:35 PM INTERNET MARKETING MANAGER) Analysis Performed At Patho logist Time Signature Urine Negative HP CONVERSION Test Specimen Anatomical Collection Method Collection Time Receive d Time (Source) Location / / Volume Laterality 09/14/2014 3:35 PM 5 3:47 INTERNET MARKETING MANAGER PM INTERNET MARKETING MANAGER Narrative HP CONVERSION - 09/14/2014 3:52 PM INTERNET MARKETING MANAGER Performed at [facility], [address] [place] [address] Doni Ayala MD LAB_1 Performing Organization Address [facility] Phon e Number HP CONVERSION ECG 12 Lead Inpatient (09/14/2014 3:31 PM INTERNET MARKETING MANAGER) P athologist Signature Ventricular Rate 72 BPM [facility] Atrial Rate 72 BPM [facility] P-R Interval 184 ms [facility] QRS Duration 96 ms [facility] QT 408 ms [facility] QTc 446 ms [facility] R [place] -8 degrees [facility] T [place] -7 degrees [facility] Specimen (Source) Anatomical Collection Method Collection Time Re ceived Time Location / / Volume Laterality 09/14/2014 3:31 PM INTERNET MARKETING MANAGER Narrative [facility] - 12/05/2019 7:16 PM CDT Sinus rhythm Normal ECG No previous ECGs available Confirmed by BG MILLER ([id number]), KRISTEN Freeman ([id number]) on 09/14/2014 4:13:52 PM Procedure Note Epic, Internal Processing - 12/07/2019Fo rmatting of this note might be different from the original. Sinus rhythm Normal ECG No previous ECGs available Confirmed by BG MILLER ([id number]), KRISTEN Freeman ([id number]) on 09/14/2014 4:13:52 PM Doni Ayala MD PN ECG ORDERABLES Performing Organization Address City/State/ZIP Code Phon e Number [facility] [address] [place] [address] documented in this encounter Visit Diagnoses Diagnosis Dizziness Dizziness and giddiness Otitis media, serous Nonsuppurative otitis media, not specifi ed as acute or chronic Sinusitis Unspecified sinusitis (chronic) Headache(784.0) Headache Fatigue Other malaise and fatigue Triage Assessment Note - Adis Ma, RN - 09/14/2014 2:49 PM CST Pt states she has been dizzy, having trouble thinking, feels off-balance and has a headache. Sxs onset Sunday. Also some nausea. Pt states she had gastric bypass in February and has not had any labs since then. RNET MARKETING MANAGER documented in this encounter Care Teams Expert Witness Relationship Specialty Start Date End Date Anny Daily, LENS CEMENTER, SEXUAL ASSAULT COUNSELOR PCP - General 12/16/13 04/09/16 [address] [place] [address] documented as of this encounter
--- OUTSIDE RECORDS SUMMARY | 2022-04-17 15:23 | XMS_ITS | Encounter Summary ---
:1980 Author Organization [facility] Address [address] [place] [address] Care Team Providers Name Role Phone Anny Daily APRN, IMANI Primary Care Provider [phone] Reason for Visit Reason Comments Medication Request Encounter Details Date Type Department Care Team Description 01/27/2014 Telephone [facility] Anny Daily, Medica tion Request Medicine [place] [address] [address] [place] [address] [place] [address] [phone] (Wo rk) Social History Tobacco Use Types Packs/Day Years Used Date Smoking Tobacco: Never Assessed Sex Assigned at Date Recorded Not on file documented as of this encounter Nursing Notes Audrey Acuña RN - 01/27/2014 12:10 PM CDT Spoke with pt. She has only seen Anny for an acute visit, and no hx of being on this medication. Was only prescribed one time previously by [facility] a few years ago. She is requesting a refill, and was advised that she would need to be seen. Should establish care with provider and have annual exam. Pt verbalizes understanding, she will call back to schedule an appt, will most likely go to today for current symptoms. Joie Dalton - 01/27/2014 11:52 AM CDT Pt would like to get rx for Valtrix. Pt is experience an early outbreas. Previous doctor from [facility] had ordered this for her. Requesting PCP to order it for here chari. . [facility]ses [facility]. documented in this encounter Plan of Treatment Not on filedocumented as of this encounter Visit Diagnoses Not on filedocumented in this encounter Care Teams Entry Level Chemist Relationship Specialty Start Date End Date Anny Daily, TOP CLOSER, DIRECTOR WOMEN PCP - General 12/16/13 04/09/16 [address] [place] [id number] documented as of this encounter
--- OUTSIDE RECORDS SUMMARY | 2022-04-17 15:23 | XMS_ITS | Encounter Summary ---
:1980 Author Organization [facility] Address [address] [place] [address] Care Team Providers Name Role Phone Anny Daily APRN, IMANI Primary Care Provider [phone] Encounter Details Date Type Department Care Team Description 04/05/2015 Lab Visit [facility] Encounter for vitamin defici ency screening; [address] [employer] Screening for diabetes arturoi tus; [place] [address] Screening for hyperlipidemia ; [phone] Screening for d eficiency anemia; Screening for t hyroid disorder Social History Tobacco Use Types Packs/Day Years Used Date Smoking Tobacco: Never Assessed Sex Assigned at Date Recorded Not on file documented as of this encounter Plan of Treatment Not on filedocumented as of this encounter Procedures Procedure Name Priority Date/Time Associated Diagnosis Comme nts IRON BINDING Routine 04/05/2015 7:50 Encounter for vitamin Res ults for this CAPACITY (INCL IRON) AM CDT deficiency screening procedure are in the results section. GLUCOSE Routine 04/05/2015 7:50 Screening for diabetes Re sults for this AM CDT mellitus procedure are i n the results section. TSH AND FREE T4 Routine 04/05/2015 7:50 Screening for thyroid Results for this (FRT4 IF TSH ABNORM) AM CDT disorder procedu re are in the results section. LIPID PANEL AND Routine 04/05/2015 7:50 Screening for Results for this DIRECT LDL(IF AM CDT hyperlipidemia procedure ar e in NEEDED) the results section. VITAMIN D Routine 04/05/2015 7:50 Encounter for vitamin Res ults for this 25-HYDROXY, TOTAL AM CDT deficiency screening pr ocedure are in the results section. COMPLETE BLOOD Routine 04/05/2015 7:50 Screening for Results f or this COUNT-W/DIFF AM CDT deficiency anemia procedure are in the results section. DIFFERENTIAL Routine 04/05/2015 7:50 Results for this AM CDT procedure are i n the results section. FERRITIN Routine 04/05/2015 7:50 Encounter for vitamin Res ults for this AM CDT deficiency screening procedu re are in the results section. VITAMIN B12 ONLY Routine 04/05/2015 7:50 Encounter for vitamin Results for this AM CDT deficiency screening procedu re are in the results section. documented in this encounter Results (ABNORMAL) Differential (04/05/2015 7:50 AM CDT) Patholo gist Method Time Signature Absolute 3.6 1.8 - 8.0 HP CONVERSION Neutrophils k/cmm Absolute 4.1 (H) 1.1 - 4.0 HP CONVERSION Lymphocytes k/cmm Absolute 0.6 0.2 - 0.8 HP CONVERSION Monocytes k/cmm Absolute 0.2 0.0 - 0.5 HP CONVERSION Eosinophils k/cmm Absolute 0.1 0.0 - 0.2 HP CONVERSION Basophils k/cmm Immature 0.4 0.0 - 0.5 HP CONVERSION Granulocytes % Specimen Anatomical Collection Method Collection Time Receive d Time (Source) Location / / Volume Laterality 04/05/2015 7:50 AM 5 7:49 CDT AM CDT Narrative HP CONVERSION - 04/05/2015 7:55 AM CDT Performed at [facility], [address] [place] [address] Anny Daily APRN, COMPUTER SYSTEMS AUDITOR LAB_1 Performing Organization Address City/State/ZIP Code Phon e Number HP CONVERSION TSH AND FREE T4 (FRT4 IF TSH ABNORM) (04/05/2015 7:50 AM CDT) athologist Signature Thyroid 3.43 0.20 - HP CONVERSION Stimulating 4.50 mIU/L Hormone Specimen Anatomical Collection Method Collection Time Receive d Time (Source) Location / / Volume Laterality 04/05/2015 7:50 AM 5 1:09 CDT PM CDT Narrative HP CONVERSION - 04/05/2015 2:10 PM CDT Performed at [facility], [facility] [place] [address] Anny Daily APRN, CNP LAB_1 Performing Organization Address City/[facility] Phon e Number HP CONVERSION Complete Blood Count W/Diff (04/05/2015 7:50 AM CDT) P athologist Signature White Blood Cell 8.5 3.8 - 11.0 HP CONVERSIO N Count k/cmm Red Blood Cell 4.01 3.70 - HP CONVERSION Count 5.20 m/cmm Hemoglobin 12.0 11.8 - HP CONVERSION 15.5 g/dL Hematocrit 36.2 35.0 - HP CONVERSION 46.0 % Mean Corpuscular 90.3 80.0 - HP CONVERSION Volume 100.0 fL RDW 13.6 11.0 - HP CONVERSION 15.0 % Platelet Count 207 140 - 450 HP CONVERSION k/cmm Specimen Anatomical Collection Method Collection Time Receive d Time (Source) Location / / Volume Laterality 04/05/2015 7:50 AM 5 7:49 CDT AM CDT Narrative HP CONVERSION - 04/05/2015 7:55 AM CDT Performed at [facility], [address] [place] [address] Anny Daily APRN, CNP LAB_1 Performing Organization Address [facility] Phon e Number HP CONVERSION Lipid Panel and Direct LDL(If Needed) (04/05/2015 7:50 AM CDT) [facility] Method Time Signature Cholesterol 162 0 - 200 HP CONVERSION mg/dL Triglycerides 96 0 - 149 HP CONVERSION mg/dL HDL Cholesterol 61 >39 mg/dL HP CONVERSION Cholesterol/HDL 2.7 HP CONVERSION Ratio Screen LDL Calculated 82 19 - 130 HP CONVERSION mg/dL Length Of Fast 12.0 HP CONVERSION Specimen Anatomical Collection Method Collection Time Receive d Time (Source) Location / / Volume Laterality 04/05/2015 7:50 AM 5 7:50 CDT AM CDT Narrative HP CONVERSION - 04/05/2015 8:37 AM CDT Performed at [facility], [address] [place] [address] Anny Daily APRN, CNP LAB_1 Performing Organization Address City/State/ZIP Code Phon e Number HP CONVERSION GLUCOSE (04/05/2015 7:50 AM CDT) athologist Signature Lab Glucose 95 60 - 100 HP CONVERSION mg/dL Specimen Anatomical Collection Method Collection Time Receive d Time (Source) Location / / Volume Laterality 04/05/2015 7:50 AM 5 7:50 CDT AM CDT Narrative HP CONVERSION - 04/05/2015 8:37 AM CDT Performed at [facility], [address] [place] [address] Anny Machuca Killian [place] CNP LAB_1 Performing Organization Address City/[facility] Code Phon e Number HP CONVERSION Ferritin (04/05/2015 7:50 AM CDT) athologist [facility] Ferritin Serum 12 10 - 291 HP CONVERSION ng/mL Specimen Anatomical Collection Method Collection Time Receive d Time (Source) Location / / Volume Laterality 04/05/2015 7:50 AM 5 1:09 CDT PM CDT Narrative HP CONVERSION - 04/05/2015 2:10 PM CDT Performed at [facility], [address] [place] [address] Anny Machuca Killian [place] CNP LAB_1 Performing Organization Address City/[facility] Code Phon e Number HP CONVERSION (ABNORMAL) B12 Only (04/05/2015 7:50 AM CDT) athologist Signature Vitamin B12 1,881 (H) 211 - 911 HP CONVERSION pg/dL Specimen Anatomical Collection Method Collection Time Receive d Time (Source) Location / / Volume Laterality 04/05/2015 7:50 AM 5 1:09 CDT PM CDT Narrative HP CONVERSION - 04/05/2015 2:10 PM CDT Performed at [facility], [address] [place] [address] Anny Machuca Killian [place] CNP LAB_1 Performing Organization Address City/[facility]/ZIP Code Phon e Number HP CONVERSION Vitamin D 25-Hydroxy, Total (04/05/2015 7:50 AM CDT) athologist Signature Vitamin D 25 Oh 33 20 - 80 HP CONVERSION ng/mL Comment: Deficiency = <20 Adequate ??= 20-29 Preferred = 30-50 Uncertain safety = 51-80 High = >80 Specimen Anatomical Collection Method Collection Time Receive d Time (Source) Location / / Volume Laterality 04/05/2015 7:50 AM 5 1:08 CDT PM CDT Narrative HP CONVERSION - 04/05/2015 2:12 PM CDT Performed at [facility], [address] [place] [address] Anny Daily APRN, CNP LAB_1 Performing Organization Address [facility] Phon e Number HP CONVERSION IRON BINDING CAPACITY (INCL IRON) (04/05/2015 7:50 AM CDT) athologist Signature Iron, Serum 132 37 - 170 HP CONVERSION ug/dL Iron Binding 352 250 - 450 HP CONVERSION Capacity ug/dL Iron Saturation 38 20 - 55 % HP CONVERSION Specimen Anatomical Collection Method Collection Time Receive d Time (Source) Location / / Volume Laterality 04/05/2015 7:50 AM 5 1:09 CDT PM CDT Narrative HP CONVERSION - 04/05/2015 2:10 PM CDT Performed at [facility], [address] [place] [address] Anny Daily APRN, COMPUTER SYSTEMS AUDITOR LAB_1 Performing Organization Address [facility] Phon e Number HP CONVERSION documented in this encounter Visit Diagnoses Diagnosis Encounter for vitamin deficiency screeni ng Screening for diabetes mellitus Screening for hyperlipidemia Screening for lipoid disorders Screening for deficiency anemia Screening for other and unspecified defi ciency anemia Screening for thyroid disorder documented in this encounter Care Teams Administrative Services Specialist Relationship Specialty Start Date End Date Anny Daily APRN, COMPUTER SYSTEMS AUDITOR PCP - General 12/16/13 04/09/16 [address] [place] [address] documented as of this encounter
--- OUTSIDE RECORDS SUMMARY | 2022-04-17 15:23 | XMS_ITS | Encounter Summary ---
:1980 Author Organization [facility] Address [address] [place] [address] Care Team Providers Name Role Phone Xuan Dickens APRN, TRAFFIC SAFETY ADMINISTRATOR Primary Care Provider [phone] Reason for Visit Reason Comments Post-Op Check Encounter Details Date Type Department Care Team Description 08/22/2013 Office Visit [facility] Harmeet Rivera MD Follow-up examination, Surgery [address] following unspecified [address] (Primary Dx) [place] [address] [place] [address] [phone] Social History Tobacco Use Types Packs/Day Years Used Date Smoking Tobacco: Never Assessed Sex Assigned at Date Recorded Not on file documented as of this encounter Progress Notes Dustin Rivera MD - 09/05/2013 11:07 AM CST S: 33 y.o. yo female who underwent laparoscopic cholecystectomy on 08/04/2013. Patient returns for F/U visit. Says they are doing well, eating normally with normal fatty foods and no diarrhea. Normal bowel habits, no fevers or chills, no nausea or emesis, normal urinary habits. No wound concerns. Pt did have some leg swelling post-op, went to have it evaluated and no DVT found. The swelling has slowlyimproved. O: There were no vitals taken for this visit. ABD: soft, wounds healing well with no evidence of infection or hernia formation. PATH: cholelithiasis and chronic cholecystitis, no evidence for malignancy. Discussed pathology withpt and gave them copy of pathology report. A/P: S/P laparoscopic cholecystectomy. Pt doing well, wound care instructions given and pt can advance activity as tolerated at 2 week post-op serene. Will continue to watch the leg swelling, suspect it will resolve with time. F/U with me PRN. Dustin Rivera MD 11:04 AM 09/05/2013 THA WASHING SYSTEM OPERATOR documented in this encounter Plan of Treatment Not on filedocumented as of this encounter Visit Diagnoses Diagnosis Follow-up examination, following unspeci fied surgery - Primary documented in this encounter Care Teams Instructional Writer Relationship Specialty Start Date End Date Xuan Dikcens, DEVELOPMENT EXPERT, TRAFFIC SAFETY ADMINISTRATOR PCP - General 03/18/12 12/01/13 [address] [place] [address] documented as of this encounter
--- OUTSIDE RECORDS SUMMARY | 2022-04-17 15:23 | XMS_ITS | Encounter Summary ---
:1980 Author Organization [facility] Address [address] [place] [address] Care Team Providers Name Role Phone Anny Daily APRN, IMANI Primary Care Provider [phone] Encounter Details Date Type Department Care Team Description 12/23/[address] Scan Abdominal pain, generalized [id number] (Primary Dx) [place] [address] Social History Tobacco Use Types Packs/Day Years Used Date Smoking Tobacco: Never Assessed Sex Assigned at Date Recorded Not on file documented as of this encounter Plan of Treatment Not on filedocumented as of this encounter Procedures Procedure Name Priority Date/Time Associated Diagnosis Comme nts CT ABD PELVIS W IV Routine 12/23/2013 7:12 PM Abdominal pain, Results for this CONT CDT generalized procedure are i n the results section. documented in this encounter Results CT Abd Pelvis W IV Cont (12/23/2013 7:12 PM CDT) Anatomical Region Laterality Modality Abdomen, Pelvis Other Specimen (Source) Anatomical Location Collection Method / Collectio n Time Received Time / Laterality Volume Impressions 12/23/2013 7:19 PM CDT IMPRESSION: 1. 3.7 cm cyst in the left adnexa, likel y ovarian. This could represent a dominant follicle or small functional cyst. There was a 3.1 cm cyst in the left ovary on prior pelvic ultrasound from 03/22/2012. 2. Diffuse hepatic steatosis. 3. No acute findings otherwise. Narrative 12/23/2013 7:19 PM CDT COMPARISON: ??None. TECHNIQUE: ??Images were obtained throug h the abdomen and pelvis following the administration of oral and 100 mL IOVERSOL 300 MG IODINE/ML INTRAVENOUS SOLUTION contrast. FINDINGS: Liver is diffusely hypodense s uggesting appendix due to cysts. Postoperative changes of cholecystectomy. The solid abdominal organs are otherwise unremarkable. No dilated bowel loops. Moderate stool throughout the colon. 3.7 x 2.3 c m hypodense lesion in the left adnexa on slice 86, l ikely ovarian or paraovarian cyst. Of note, otherwise a cyst in the left ovary measuring up to 3.1 cm on prior pelvic ultrasound from 03/22/2012. Pelvic organs ar e otherwise grossly unremarkable. No bro e fluid or inflammation. No lymphadenopathy. No acu te findings otherwise. Procedure Note Wellington Kaur MD - 02/20/2016 COMPARISON: None. TECHNIQUE: Images were obtained through the abdomen and pelvis following the administration of oral and 100 mL IOVERSOL 300 MG IODINE/ML INTRAVENOUS SOLUTION contrast. FINDINGS: Liver is diffusely hypodense s uggesting appendix due to cysts. Postoperative changes of cholecystectomy. The solid abdominal organs are otherwise unremarkable. No dilated bowel loops. Moderate stool throughout the colon. 3.7 x 2.3 cm hypodense lesion in the left adnexa on slice 86, l ikely ovarian or paraovarian cyst. Of note, otherwise a cyst in the left ovary measuring up to 3.1 cm on prior pelvic ultrasound from 03/22/2012. Pelvic organs are otherwise grossly unremarkable. No free fluid or inflammation. No lymphadenopathy. No acu te findings otherwise. IMPRESSION IMPRESSION: 1. 3.7 cm cyst in the left adnexa, likel y ovarian. This could represent a dominant follicle or small functional cyst. There was a 3.1 cm cyst in the left ovary on prior pelvic ultrasound from 03/22/2012. 2. Diffuse hepatic steatosis. 3. No acute findings otherwise. Anny Daily APRN, CNP RAD CT documented in this encounter Visit Diagnoses Diagnosis Abdominal pain, generalized - Primary documented in this encounter Care Teams Sweep Press Operator Relationship Specialty Start Date End Date Anny Daily APRN, CNP PCP - General 12/16/13 04/09/16 [address] [place] [address] documented as of this encounter
--- OUTSIDE RECORDS SUMMARY | 2022-04-17 15:23 | XMS_ITS | Encounter Summary ---
:1980 Author Organization [facility] Address [address] [place] [address] Care Team Providers Name Role Phone KillianAnny APRN, IMANI Primary Care Provider [phone] Encounter Details Date Type Department Care Team Description 02/24/2014 Lab Visit [facility] Preoperative examination [address] [place], [place] [address] Social History Tobacco Use Types Packs/Day Years Used Date Smoking Tobacco: Never Assessed Sex Assigned at Date Recorded Not on file documented as of this encounter Plan of Treatment Not on filedocumented as of this encounter Procedures Procedure Name Priority Date/Time Associated Diagnosis Comme nts COMPLETE BLOOD Routine 02/24/2014 1:33 PM Preoperative Results for this COUNT-W/DIFF CDT examination procedure are i n the results section. DIFFERENTIAL Routine 02/24/2014 1:33 PM Results f or this CDT procedure are i n the results section. documented in this encounter Results (ABNORMAL) Differential (02/24/2014 1:33 PM CDT) [facility] gist Method Time Signature Absolute 8.8 (H) 1.8 - 8.0 HP CONVERSION Neutrophils Absolute 3.1 1.1 - 4.0 HP CONVERSION Lymphocytes Absolute 0.6 0.2 - 0.8 HP CONVERSION Monocytes Absolute 0.2 0.0 - 0.5 HP CONVERSION Eosinophils Absolute 0.2 0.0 - 0.2 HP CONVERSION Basophils Specimen Anatomical Collection Method Collection Time Receive d Time (Source) Location / / Volume Laterality 02/24/2014 1:33 PM 4 1:33 CDT PM CDT Narrative HP CONVERSION - 02/24/2014 1:53 PM CDT Performed at [facility], [address] [place] [address] Anny Daily APRN, CNP LAB_1 Performing Organization Address [facility] Phon e Number HP CONVERSION (ABNORMAL) Complete Blood Count W/Diff (02/24/2014 1:33 PM CDT) [facility] gist Method Time Signature White Blood Cell 12.9 (H) 3.8 - HP CONVERSION Count 11.0 Red Blood Cell 4.50 3.70 - HP CONVERSION Count 5.20 Hemoglobin 11.8 11.8 - HP CONVERSION 15.5 g/dL Hematocrit 35.6 35.0 - HP CONVERSION 46.0 % Mean Corpuscular 79.1 (L) 80.0 - HP CONVERSION Volume 100.0 fL RDW 14.5 11.0 - HP CONVERSION 15.0 % Platelet Count 353 140 - 450 HP CONVERSION Specimen Anatomical Collection Method Collection Time Receive d Time (Source) Location / / Volume Laterality 02/24/2014 1:33 PM 4 1:33 CDT PM CDT Narrative HP CONVERSION - 02/24/2014 1:53 PM CDT Performed at [facility], [address] [place] [address] Anny Daily APRN, CNP LAB_1 Performing Organization Address [facility] Phon e Number HP CONVERSION documented in this encounter Visit Diagnoses Diagnosis Preoperative examination Preoperative examination, unspecified documented in this encounter Care Teams Poultry Raiser Relationship Specialty Start Date End Date Anny Daily APRN, CNP PCP - General 12/16/13 04/09/[address] [place] [address] [place] [id number] documented as of this encounter
--- OUTSIDE RECORDS SUMMARY | 2022-04-17 15:23 | XMS_ITS | Encounter Summary ---
:1980 Author Organization [facility] Address [address] [place] [address] Care Team Providers Name Role Phone Anny Daily APRN, CNP Primary Care Provider [phone] Reason for Visit Reason Comments PRE-OP EXAM Encounter Details Date Type Department Care Team Description 02/24/2014 Pre-Op Visit [facility] Anny Daily Preo perative examination (Primary Dx); Medicine [place] [place] Obesity; [address] [address] [address] GERD (gastroesophageal reflux disease) [place] [address] [place], [place] [phone] [id number] Social History Tobacco Use Types Packs/Day Years Used Date Smoking Tobacco: Never Assessed Sex Assigned at Date Recorded Not on file documented as of this encounter Last Filed Vital Signs Vital Sign Reading Time Taken Comments Blood Pressure 125/80 02/24/2014 1:01 PM CDT Pulse 81 02/24/2014 1:01 PM CDT Temperature 37.1 ??C (98.8 ??F) 02/24/2014 1:01 PM CDT Respiratory Rate 20 02/24/2014 1:01 PM CDT Oxygen Saturation - - Inhaled Oxygen Concentration - - Weight 152.9 kg (337 lb) 02/24/2014 1:01 PM CDT Height 176.5 cm (5' 9.5) 02/24/2014 1:01 PM CDT Body Mass Index 49.05 02/24/2014 1:01 PM CDT documented in this encounter Patient Instructions Patient InstructionsAnny Daily APRN, CNP - 02/24/2014 1:31 PM CDT Body mass index is 49.07 kg/(m^2). 1. Please follow your surgeon's instructions for eating and drinking restrictions prior to surgery. 2. Please refrain from taking aspirin or ibuprofen products up to 7 days prior to surgery. documented in this encounter OR Notes H&P - Anny Daily APRN, CNP - 02/25/2014 2:07 PM CDT PREOPERATIVE ASSESSMENT Date of : 1980 Age: 33 y.o. Sex: female Preoperative Evaluation completed by: KIMBER Graham Primary care physician: Anny Daily [phone] CHIEF COMPLAINT Pre-Operative Evaluation ANTICIPATED PROCEDURE Laparoscopic kelsey-en-y gastric bypass on 02/27/[address] Cueva at [facility] HISTORY OF PRESENT ILLNESS 33 year old female presents to the clinic for a preoperative examination. She is accompanied by her mother. She has no questions or concerns regarding her upcoming procedure. Risk Factors/Review of Systems: (Please see flowsheets for details) Cardiovascular risks negative. Renal risks negative. Neuro risks negative. GI risks negative except for: GERD: controlled with taking prevacid 15 mg daily Pulmonary risks negative. Endocrine/Nutrition risks negative. 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 Other risk factors negative except for: Intra-abdominal or intra-thoracic disorders, potential blood loss, total joint replacement: yes, CBCordered Complete review of systems is otherwise negative. Past Medical History Diagnosis Date ??? Depression 03/01/2012 ??? Anemia 03/01/2012 Past Surgical History Procedure Laterality Date ??? Hx appendectomy ??? Cholecystectomy ??? Other surgical history 2004 SI joint fusion and cage Family History Problem Relation Age of Onset ??? Cataracts Maternal Grandfather ??? Glaucoma Maternal Grandfather ??? Diabetes Neg Hx ??? Macular Degen Neg Hx ??? Retinal Detachment Neg Hx ??? Strabismus Neg Hx History Social History ??? Marital Status: Single Spouse Name: N/A Number of Children: N/A ??? Years of Education: N/A Occupational History ??? Not on file. Social History Main Topics ??? Smoking status: Former Smoker ??? Smokeless tobacco: Never Used ??? Alcohol Use: Yes Comment: Alcoholic Drinks/day: Amount:1-2 drinks; Freq:Never; ??? Drug Use: No ??? Sexually Active: Not on file Other Topics Concern ??? Not on file Social History Narrative Current Outpatient Prescriptions Medication Sig Dispense Refill ??? CALCIUM PHOSPHATE TRIB/VIT D3 (CITRACAL + D ORAL) Take by mouth. ??? cholecalciferol (VITAMIN D3) 1,000 unit Tab Take 1,000 Units by mouth daily (every 24 hours). ??? diazepam (VALIUM) 10 mg tablet Take 1 tablet by mouth every 8 hours as needed for Anxiety. 24 tablet 0 ??? docusate sodium (COLACE) 100 mg capsule Take 1 capsule by mouth 2 times daily as needed for Constipation. 60 capsule 3 ??? ferrous sulfate 325 mg (65 mg iron) EC tablet Take 1 tablet by mouth daily (every 24 hours). 100tablet 3 ??? lansoprazole (PREVACID) 15 mg capsule Take 1 capsule by mouth daily (every 24 hours). Take before meals 90 capsule 3 ??? multivitamin, stress formula (VITAMIN B COMPLEX WITH C) tablet Take 1 tablet by mouth daily (every 24 hours). No current facility-administered medications for this visit. Allergies Allergen Reactions ??? Adhesive Tape-Silicones Rash PHYSICAL EXAMINATION Temp: 37.1 ??C (98.8 ??F) (02/24/14 130) Pulse: 81 (02/24/14 130) Resp: 20 (02/24/14 130) BP: 125/80 mmHg (02/24/14 130) Height: 176.5 cm (5' 9.5) (02/24/14 1301) Weight: 152.862 kg (337 lb) (02/24/14 130) BMI (Calculated): 49.16 (02/24/14 1301) General Appearance: Normal HEENT: Normal Neck: Normal Lungs: Normal Heart: Abdomen: Normal Normal Extremities: Normal Skin: Normal Neurologic: Normal TEST RESULTS AND DATE EKG done: No Labs done: Today: 02/24/2014. CBC: hemoglobin: 11.8, platelets 353. ASSESSMENT 1. Preoperative Assessment: This patient has been examined by me today and has been found to be a suitable candidate for surgery: Yes RECOMMENDATIONS AND PLAN Day of surgery testing: none Medication recommendations: See below. Medication Adjustment Recommendations - You should take ALL medications on the day of surgery EXCEPT: ?? Aspirin - hold 7 days Patient Instructions Body mass index is 49.07 kg/(m^2). Additional screening recommended: no Consult (Cardiology/other): no Additional test results attached: none Beta epi protocol ordered: no Insulin/Diabetes orders initiated: no Continuous O2 Sat monitoring post op orders initiated: no Other: no ABOVE RECOMMENDATIONS WERE REVIEWED WITH PATIENT: yes KIMBER Graham 02/24/2014 documented in this encounter Plan of Treatment Not on filedocumented as of this encounter Visit Diagnoses Diagnosis Preoperative examination - Primary Preoperative examination, unspecified Obesity (HRC) Obesity, unspecified GERD (gastroesophageal reflux disease) Esophageal reflux documented in this encounter Care Teams Dowel Inserting Machine Operator Relationship Specialty Start Date End Date Anny Daily APRN, CNP PCP - General 12/16/13 04/09/16 [address] [place] [address] documented as of this encounter
--- OUTSIDE RECORDS SUMMARY | 2022-04-17 15:23 | XMS_ITS | Encounter Summary ---
:1980 [facility] Address [address] [place] [address] Care Team Providers Name Role Phone Anny Daily APRN, CNP Primary Care Provider [phone] Reason for Visit Reason Comments Abdominal Pain Encounter Details Date Type Department Care Team Description 12/16/2013 Office Visit [facility] Anny Daily, Pilo shivam pain, generalized (Primary Dx); Medicine [facility] [place] [address] [address] [address] [place] [address] [place] [phone] Social History Tobacco Use Types Packs/Day Years Used Date Smoking Tobacco: Never Assessed Sex Assigned at Date Recorded Not on file documented as of this encounter Last Filed Vital Signs Vital Sign Reading Time Taken Comments Blood Pressure 114/75 12/16/2013 1:27 PM CDT Pulse - - Temperature 37.1 ??C (98.8 ??F) 12/16/2013 1:27 PM CDT Respiratory Rate - - Oxygen Saturation - - Inhaled Oxygen Concentration - - Weight 159.7 kg (352 lb) 12/16/2013 1:27 PM CDT Height - - Body Mass Index 51.98 07/25/2013 2:06 PM TEACHER'S ASSISTANT documented in this encounter Patient Instructions Patient InstructionsAnny Daily APRN, CNP - 12/16/2013 2:51 PM CDT 1. Today, I saw you for evaluation of generalized abdominal pain. I ordered liver function tests, and these were normal. I also ordered a white blood cell count, and this was mildly elevated. Your abdominal x ray showed moderate amounts of stool retained in the colon. In general with iron replacement,I would recommend taking a single dose of docusate sodium in the evening to prevent constipation. When you are constipated, you take this twice daily. Make sure you are drinking plenty of water, and are following a bland diet until your pain improves. 2. Please call me if you develop any new or worsening symptoms, and we can discuss ordering a CT scan of the abdomen. documented in this encounter Progress Notes Anny Daily APRN, CNP - 12/16/2013 3:01 PM CDT Chief concern: Chief Complaint Patient presents with ??? Abdominal Pain (STOMACH ACHE) x 2-3 days Other concerns: None Past medical history: Past Medical History Diagnosis Date ??? Depression 03/01/2012 ??? Anemia 03/01/2012 Medications: Current Outpatient Prescriptions on File Prior to Visit Medication Sig Dispense Refill ??? CALCIUM PHOSPHATE TRIB/VIT D3 (CITRACAL + D ORAL) Take by mouth. ??? cholecalciferol (VITAMIN D3) 1,000 unit Tab Take 1,000 Units by mouth daily (every 24 hours). ??? diazepam (VALIUM) 10 mg tablet Take 1 tablet by mouth every 8 hours as needed for Anxiety. 24 tablet 0 ??? ferrous sulfate 325 mg (65 mg iron) EC tablet Take 1 tablet by mouth daily (every 24 hours). 100tablet 3 ??? [DISCONTINUED] HYDROcodone-acetaminophen (NORCO) 5-325 mg per tablet Take 1 tablet by mouth every 6 hours as needed for Pain. 20 tablet 0 ??? multivitamin, stress formula (VITAMIN B COMPLEX WITH C) tablet Take 1 tablet by mouth daily (every 24 hours). No current facility-administered medications on file prior to visit. Adverse Drug Reactions: No Known Allergies Habits: History Social History ??? Marital Status: Single Spouse Name: N/A Number of Children: N/A ??? Years of Education: N/A Occupational History ??? Not on file. Social History Main Topics ??? Smoking status: Former Smoker ??? Smokeless tobacco: Never Used ??? Alcohol Use: Yes Comment: Alcoholic Drinks/day: Amount:1-2 drinks; Freq:Never; ??? Drug Use: Not on file ??? Sexually Active: Not on file Other Topics Concern ??? Not on file Social History Narrative ??? No narrative on file HPI: 33 year old female presents to the clinic for evaluation of generalized abdominal discomfort. Her pain begins in the epigastric area, and radiates into the right lower abdominal area and occasionally into the back. Her pain is constant, and is exacerbated by taking a deep breath and with bending forwards. Eating meals seems to improve her pain. Denies a possibility of . She has a history of cholecystectomy and appendectomy. She also has a history of ovarian cysts. Denies a history of endometriosis or uterine fibroids. Reports mild nausea that comes and goes. Denies vomiting. Reports constipation. Her last BM was yesterday, and was normal. Denies black, or bloody stools. No urinary urgency, frequency, or dysuria. Denies abnormal vaginal discharge. She has a history of menorrhagia, and has had her menstrual period for the last month. Denies fevers or chills, however feels slightly warm. Her pain stays around a 6/10 in severity. Taking tylenol and aspirin is not helpful. She just started taking iron supplementation for iron deficiency anemia, and this is when the pain started. Review of systems: See HPI. Denies chest pain, shortness of breath. Denies bladder symptoms. Denies numbness, tingling, swelling in the extremities. Weight is stable. No arthralgias or myalgias. OBJECTIVE: Vital Signs: BP 114/75 Temp(Src) 37.1 ??C (98.8 ??F) (Oral) Wt 159.666 kg (352 lb) BMI 51.96 kg/m2 Patient is alert, oriented, and pleasant. No acute distress. Head: Normocephalic. Eyes: PERRLA, fullEOM. External exams normal. Neck: Supple, no cervical lymphadenopathy. Thyroid nontender, without swelling or nodules palpated. Respiratory: Normal respiratory effort. Lungs are clear with good breath sounds. Heart: Regular rate and rhythm, no murmurs, rubs, gallops. Abdomen: The abdomen was soft and nontender without guarding, rebound tenderness, or masses. No hepatosplenomegaly. Legs: Without edema. ASSESSMENT: Encounter Diagnoses Name Primary? Abdominal pain, generalized Yes ??? Constipation PLAN: 1. Generalized abdominal pain: I ordered a CBC with differential, and her WBC count was 11.4. Neutrophil count 7.9 (normal). Her Hemoglobin was 11.0, however she is being treated for iron deficiency anemia. Her LFTs were within normal limits. UA was unremarkable. Her abdominal x ray did not show any evidence of obstruction or abnormal gas patterns, however there was a moderate amount of retained stool in the colon. Considering the patients generalized symptoms, and that she is taking iron therapy, which is known to be constipating, I recommend trialing treatment for constipation with docusate sodium to see if her pain improves with relief of constipation. If her pain does not improve, or if she develops new or worsening symptoms, she was asked to contact me, and I will order a CT scan of the abdomen and pelvis with oral and IV contrast for further evaluation. Orders Placed This Encounter Procedures ??? XR Abdomen * Flat and Upright (Standard) ??? Complete Blood Count W/Diff ??? Hepatic Function Panel ??? Urinalysis Routine, Micro/Culture if Pos Patient Instructions 1. Today, I saw you for evaluation of generalized abdominal pain. I ordered liver function tests, and these were normal. I also ordered a white blood cell count, and this was mildly elevated. Your abdominal x ray showed moderate amounts of stool retained in the colon. In general with iron replacement,I would recommend taking a single dose of docusate sodium in the evening to prevent constipation. When you are constipated, you take this twice daily. Make sure you are drinking plenty of water, and are following a bland diet until your pain improves. 2. Please call me if you develop any new or worsening symptoms, and we can discuss ordering a CT scan of the abdomen. Orders Placed This Encounter Medications ??? docusate sodium (COLACE) 100 mg capsule Sig: Take 1 capsule by mouth 2 times daily as needed for Constipation. Dispense: 60 capsule Refill: 3 The patient was discharged ambulatory and in stable condition and agreed with the above plan. Dictation Disclaimer: Some notes are completed with voice-recognition dictation software. Typographical errors may result . Please contact me via [facility] staff message if you note any errors requiring clarification. documented in this encounter Plan of Treatment Not on filedocumented as of this encounter Visit Diagnoses Diagnosis Abdominal pain, generalized - Primary Constipation documented in this encounter Care Teams Radio Installer Automobile Relationship Specialty Start Date End Date Anny Daily APRN, CNP PCP - General 12/16/13 04/09/16 [address] [place] [address] documented as of this encounter
--- OUTSIDE RECORDS SUMMARY | 2022-04-17 15:23 | XMS_ITS | Encounter Summary ---
:1980 Author Organization [facility] Address [address] [place] [address] Care Team Providers Name Role Phone Loretta Washington MD Primary Care Provider Reason for Visit Reason Onset Date Comments Flank Pain 12/14/2013 Encounter Details Date Type Department Care Team Description 12/14/2013 Telephone Careline Elizabeth Anderson MD Flank Pain [address] [place], [place] [address] [place] [address] [phone] (Wo rk) Social History Tobacco Use Types Packs/Day Years Used Date Smoking Tobacco: Never Assessed Sex Assigned at Date Recorded Not on file documented as of this encounter Nursing Notes Jacey Travis RN - 12/14/2013 4:16 PM CDT TRIAGE REFERENCE: ABDOMINAL PAIN - ADULT CNG (c) 2013 Verified pt's STAT SYMPTOMS None per guideline ASSESSMENT Pt stated last evening she developed RUQ pain which radiates to the left. Had her gallbladder removed the beginning of Aug. Stated her pain is worse after she eats. No fever. Denies nausea. Takes prevacid/iron dly. Sleeping fine. Wondering if this is related to her gallbladder and if she should be concerned. Abd pain/discomfort location:RQ Quality: achy and dull. Severity:pt rated her pain 6/10, has not taken anything for the pain GI symptoms: Appetite:ok Nausea No. Vomiting No. Flatus Yes. Diarrhea No. Associated symptoms: Fever:pt denied Chills: No Diaphoresis: No Urinary symptoms: No. Trauma history: No Relieving factors:has not tried anything Aggravating factors:eating Signs of dehydration:no MEMBERSHIP SECRETARY symptoms/history: Not Applicable. Recent GI procedure: No PMH: Patient Active Problem List Diagnosis (none) - all problems resolved or deleted CURRENT MEDICATIONS:prevacid, iron HOME TREATMENT: Discussed per guideline Acetaminophen 650mg is safe, or antacid if appropriate Do not consume alcoholic beverages Call back if no relief or pain increases over next hour PLAN:clinic appt tomorrow. Pt agreed with recommendation. Jacey Travis RN Mari Pedersen - 12/14/2013 4:08 PM CDT Pt missed call from careline nurse, states her phone never rang. Call was transferred to Careline Nurse Jacey Travis RN - 12/14/2013 3:11 PM CDT This is a CareLine Registered Nurse returning your call at [phone]. I am sorry I missed you. If you still would like to speak to a nurse, please call back to the CareLine at [phone]. Jacey Travis RN Alessandra Freeman - 12/14/2013 2:57 PM CDT Which care system or clinic is the patient normally seen at? [facility] Do we have permission to access information needed from your [facility] medical records? Yes. [facility] would like me to ask all callers, If the CareLine was not available, what would you have done?Seek ER Care. Situation: PT has flank pain Background: PT had gall bladder surgery Plan:A nurse will return your call. If your symptoms change for the worse, please call us back [phone].. documented in this encounter Plan of Treatment Not on filedocumented as of this encounter Visit Diagnoses Not on filedocumented in this encounter Care Teams Business Continuity Global Director Relationship Specialty Start Date End Date Loretta Washington MD PCP - General 12/02/13 12/15/13 [address] [address] [place] [address] documented as of this encounter
--- OUTSIDE RECORDS SUMMARY | 2022-04-17 15:23 | XMS_ITS | Encounter Summary ---
:1980 Author [facility] Address [address] [place] [address] Care Team Providers Name Role Phone Anny Daily APRN, CNP Primary Care Provider [phone] Reason for Visit Reason Comments Medication Request Encounter Details Date Type Department Care Team Description 01/19/2014 Telephone [facility] Anny Daily, [facility] Medicine [place] [address] [address] [place] [address] [place] [address] [phone] (Wo rk) Social History Tobacco Use Types Packs/Day Years Used Date Smoking Tobacco: Never Assessed Sex Assigned at Date Recorded Not on file documented as of this encounter Nursing Notes Anny Daily APRN, CNP - 01/19/2014 5:00 PM CDT I spoke with Lennie, and recommend sparing use of bisacodyl and as needed use of miralax. She was asked to contact me if these medications are not helpful for her constipation. Radha Dumont LPN - 01/19/2014 4:55 PM CDT Pt notified of Anny's message. Pt states she takes this medication BID . Pt states she was hopingthat there is something else that would be better than the colace, please review and advise. Anny Daily APRN, CNP - 01/19/2014 4:37 PM CDT Can you please clarify the frequency she is taking colace? If it is once daily, she can go up to twice daily. Becky Odonnell - 01/19/2014 4:35 PM CDT She was seen 12/16. She has been taking colace. She says it makes her stool soft, but she doesn't pass much of it (does go every day). Says she still feels blocked up.No abdominal pain, but feels uncomfortable. Is passinggas. She restarted her iron supplements on about January 01. Please advise. Frances Dias - 01/19/2014 4:23 PM CDT PSC Medication Issue/Refill Primary Care Provider: Anny Daily Patient to contact pharmacy: no Comment: Pt has been prescribed a stool softener and it is not working, requesting an alternative Pharmacy Name & Phone #: Listed Pharmacy Street or City: Listed Drug Name: Strength: Dose/Route/Freq: *ECODE documented in this encounter Plan of Treatment Not on filedocumented as of this encounter Visit Diagnoses Not on filedocumented in this encounter Care Teams Check Grader Relationship Specialty Start Date End Date Anny Daily APRN, CNP PCP - General 12/16/13 04/09/16 [address] [address] [place] [address] documented as of this encounter
--- OUTSIDE RECORDS SUMMARY | 2022-04-17 15:23 | XMS_ITS | Encounter Summary ---
:1980 Author Organization [facility] Address [address] [place] [address] Care Team Providers Name Role Phone Anny Daily APRN, IMANI Primary Care Provider [phone] Reason for Visit Reason Comments Other Encounter Details Date Type Department Care Team Description 02/04/2014 Telephone [facility] Anny Daily APRN , Other Medicine SEISMIC PROSPECTING OBSERVER [address] [facility] [address] [place] [address] [place] [address] [phone] (Wo rk) Social History Tobacco Use Types Packs/Day Years Used Date Smoking Tobacco: Never Assessed Sex Assigned at Date Recorded Not on file documented as of this encounter Nursing Notes Tarsha Vallejo MA - 02/09/2014 3:26 PM CDT Cannot find the paperwork. Radha Dumont LPN - 02/09/2014 2:34 PM CDT Do you have paperwork for this pt? Anny Daily APRN, IMANI - 02/09/2014 2:07 PM CDT I have not received any paperwork for this as of yet. Can we look into this? Thank you! Rhiannon Webber RN - 02/04/2014 3:52 PM CDT Pt states Dr Joe Cueva from [place] will sent the All Clearance form for pt primary to sign. Becky Odonnell - 02/04/2014 3:50 PM CDT She says she got an ok from Dr. Joe Cueva-[employer] . He will be submitting information to youand her insurance company.She is Aware you are not in the office this week. Irene Martinez - 02/04/2014 3:43 PM CDT Pt was given Ok for Gastro Surgery , would like to know if there other directions for Pt. documented in this encounter Plan of Treatment Not on filedocumented as of this encounter Visit Diagnoses Not on filedocumented in this encounter Care Teams Senior Clinical Data Manager Relationship Specialty Start Date End Date Anny Daily APRN, SEISMIC PROSPECTING OBSERVER PCP - General 12/16/13 04/09/16 [address] [place] [address] documented as of this encounter
--- OUTSIDE RECORDS SUMMARY | 2022-04-17 15:23 | XMS_ITS | Encounter Summary ---
:1980 Author Organization [facility] Address [address] [place] [address] Care Team Providers Name Role Phone Xuan Dickens APRN, CNP Primary Care Provider [phone] Reason for Visit Reason Comments Questions Encounter Details Date Type Department Care Team Description 08/11/2013 Telephone [place] [id number] [facility] Surgery Janis Ortega RN Questions [address] [facility] [place] [address] Social History Tobacco Use Types Packs/Day Years Used Date Smoking Tobacco: Never Assessed Sex Assigned at Date Recorded Not on file documented as of this encounter Nursing Notes Janis Ortega RN - 08/11/2013 2:12 PM CST Pt calling with concerns of ankle swelling she noticed this morning. Her gallbladder surgery was exactly 1 wk ago. She has no pain and no redness anywhere. The pt was informed (per Dr. Rivera) that moving around will help it go away. Pt verbalized understanding. GE MANAGEMENT CONSULTANT documented in this encounter Plan of Treatment Not on filedocumented as of this encounter Visit Diagnoses Not on filedocumented in this encounter Care Teams Aircraft Maintenance Director Relationship Specialty Start Date End Date Xuan Dickens APRN, MARKET RISK SPECIALIST PCP - General 03/18/12 12/01/13 [address] [place] [address] documented as of this encounter
--- OUTSIDE RECORDS SUMMARY | 2022-04-17 15:23 | XMS_ITS | Encounter Summary ---
:1980 Author Organization [facility] Address [address] [place] [address] Care Team Providers Name Role Phone Anny Daily APRN, CNP Primary Care Provider [phone] Encounter Details Date Type Department Care Team Description 01/01/2014 Notes/Orders Anjana York, Screening for other and unsp ecified endocrine, nutritional, metabolic, and immunity disorders (Primary Dx); [address] [facility] Screening for iron deficiency anemia AMITA Ortiz [address] [address] [phone] [address] AMITA [place]HN [address] Social History Tobacco Use Types Packs/Day Years Used Date Smoking Tobacco: Never Assessed Sex Assigned at Date Recorded Not on file documented as of this encounter Plan of Treatment Not on filedocumented as of this encounter Visit Diagnoses Diagnosis Screening for other and unspecified endo crine, nutritional, metabolic, and immunity disorders - Primary Screening for iron deficiency anemia documented in this encounter Care Teams Varnish Mixer Relationship Specialty Start Date End Date Anny Daily APRN, CRATING AND MOVING ESTIMATOR PCP - General 12/16/13 04/09/16 [address] [place] AMTIA Bearden [address] documented as of this encounter
--- OUTSIDE RECORDS SUMMARY | 2022-04-17 15:23 | XMS_ITS | Encounter Summary ---
:1980 Author Organization [facility] Address [address] [place] [address] Care Team Providers Name Role Phone Anny Daily APRN, IMANI Primary Care Provider [phone] Encounter Details Date Type Department Care Team Description 12/16/2013 Imaging Man Radiology Abdominal pain, generalized [address] [place] [address] Social History Tobacco Use Types Packs/Day Years Used Date Smoking Tobacco: Never Assessed Sex Assigned at Date Recorded Not on file documented as of this encounter Plan of Treatment Not on filedocumented as of this encounter Procedures Procedure Name Priority Date/Time Associated Diagnosis Comme nts XR ABD FLAT AND Routine 12/16/2013 2:06 PM Abdominal pain, Res ults for this UPRIGHT CDT generalized procedure are i n the results section. documented in this encounter Results XR Abd Flat And Upright (12/16/2013 2:06 PM CDT) Anatomical Region Laterality Modality Abdomen Other Specimen (Source) Anatomical Location Collection Method / Collectio n Time Received Time / Laterality Volume Impressions 12/16/2013 2:14 PM CDT IMPRESSION: ??Negative flat and upright views of the abdomen. Stable sclerotic changes right sacrum. Narrative 12/16/2013 2:14 PM CDT COMPARISON: ??None. FINDINGS: ??Two views were obtained. ??A bdominal gas pattern is unremarkable. ??No suspicious calcifications are identified. ??No gross free intraabdominal gas is seen. ??There are no abnormal gas-fluid levels. ??No abnormal soft tissue mass or organomegaly is noted. Status post cholecystectomy. Met allic cylindrical density over the right sacrum. Sclerotic changes of the upper right sacrum again seen similar to 09/09/2012. Procedure Note Nathan Ga MD - 02/19/2016Format ting of this note might be different from the original. COMPARISON: None. FINDINGS: Two views were obtained. Abdom inal gas pattern is unremarkable. No suspicious calcifications are identified. No gross free intraabdominal gas is seen. There are no abnormal gas-fluid levels. No abnormal soft tissue mass or organomegaly is noted. Status post cholecystectomy. Met allic cylindrical density over the right sacrum. Sclerotic changes of the upper right sacrum again seen similar to 09/09/2012. IMPRESSION IMPRESSION: Negative flat and upright vi ews of the abdomen. Stable sclerotic changes right sacrum. Anny Daily APRN, CNP RAD GD documented in this encounter Visit Diagnoses Diagnosis Abdominal pain, generalized documented in this encounter Care Teams Problem Manager Relationship Specialty Start Date End Date Anny Daily APRN, HARBOR POLICE LIEUTENANT PCP - General 12/16/13 04/09/16 [address] [place] AMITA Bearden [address] documented as of this encounter
--- OUTSIDE RECORDS SUMMARY | 2022-04-17 15:23 | XMS_ITS | Encounter Summary ---
:1980 Author Organization [facility] Address [address] [place] [address] Care Team Providers Name Role Phone Anny Daily APRN, CNP Primary Care Provider [phone] Encounter Details Date Type Department Care Team Description 02/25/2014 Lab Visit [facility] Preoperative examination [address] [place] [address] Social History Tobacco Use Types Packs/Day Years Used Date Smoking Tobacco: Never Assessed Sex Assigned at Date Recorded Not on file documented as of this encounter Plan of Treatment Not on filedocumented as of this encounter Procedures Procedure Name Priority Date/Time Associated Diagnosis Comme nts WBC, BLOOD Routine 02/25/2014 7:19 PM Preoperative Results f or this CDT examination procedure are i n the results section. documented in this encounter Results (ABNORMAL) WBC, Blood (02/25/2014 7:19 PM CDT) [facility] Signature White Blood 13.4 (H) 3.8 - 11.0 HP CONVERSION Cell Count Specimen Anatomical Collection Method Collection Time Receive d Time (Source) Location / / Volume Laterality 02/25/2014 7:19 PM 4 7:19 CDT PM CDT Narrative HP CONVERSION - 02/25/2014 7:22 PM CDT Performed at [facility], [address] [place] [address] Anny Daily APRN, CNP LAB_1 Performing Organization Address City/State/ZIP Code Phon e Number HP CONVERSION documented in this encounter Visit Diagnoses Diagnosis Preoperative examination Preoperative examination, unspecified documented in this encounter Care Teams Information Technology Audit Manager Relationship Specialty Start Date End Date Anny Daily, VERIFYING SPECIALIST, VENDING MACHINE OPERATOR PCP - General 12/16/13 04/09/[address] [place] [address] documented as of this encounter
--- OUTSIDE RECORDS SUMMARY | 2022-04-17 15:23 | XMS_ITS | Encounter Summary ---
:1980 Author Organization [facility] Address [address] [place] [address] Care Team Providers Name Role Phone KillianAnny APRN, CNP Primary Care Provider [phone] Reason for Visit Reason Comments CONSULT Encounter Details Date Type Department Care Team Description 04/07/2014 Initial Consult General Elida coun seling for Obstetrics/Gynecolo Nini Collier APRN inbrian tiation of gy SECURITY COMPLIANCE SPECIALIST contraceptive measures [address] (Primary Dx) [place] [address] [phone] Social History Tobacco Use Types Packs/Day Years Used Date Smoking Tobacco: Never Assessed Sex Assigned at Date Recorded Not on file documented as of this encounter Last Filed Vital Signs Vital Sign Reading Time Taken Comments Blood Pressure 126/72 04/07/2014 2:31 PM CDT Pulse - - Temperature - - Respiratory Rate - - Oxygen Saturation - - Inhaled Oxygen Concentration - - Weight 134.6 kg (296 lb 12.8 oz) 04/07/2014 2:31 PM CDT Height - - Body Mass Index 43.2 02/24/2014 1:01 PM CDT documented in this encounter Progress Notes Nini Stephens APRN, CNP - 04/07/2014 5:31 PM CDT Progress Notes signed by SANDRA Gramajo at 04/08/14 1548 Author: SANDRA Gramajo Service: (none) Author Type: Nurse Practitioner Filed: 04/08/14 1548 Note Time: 04/08/14 1012 Status: Signed Electrician Apprentice: SANDRA Gramajo (Nurse Practitioner) NAME: LENNIE MOLINA MR#: [id number] CSN: [id number] AUTHENTICATING CLINICIAN: SANDRA Gramjao CONFIRM #: [id number] LOC: 512 CLINIC PROGRESS NOTE DATE OF VISIT: 04/07/2014 : 1980 SUBJECTIVE: The patient is a 33-year-old white female, nulliparous, who presents to clinic today for contraceptive counseling. The patient states that all her menses have been very regular since menarche at about age 12. She states it would be many months where she would not get a period at all, and then she would have her period for about a month in a row. The patient states that she has been on oral contraceptives in the past secondary to this. The patient states that she really was not worried about contraceptives until she had her gastric bypass in 02/2014. Since that time, she has lost approximately 60 pounds. She states that her menses are getting slightly more regular where she has had two menses since the bypass. The patient is just con cerned about a . She would like to wait to become for about 2 years. I discussed various contraceptives with patient. However, at this time, she would like to use the Mirena IUD. I discussed its use, administration, side effects, and warning signs, and patient did voiceunderstanding. I see no contraindications for the Mirena IUD, and patient voiced understanding of that. MEDICATIONS: Updated in citizenmade. ALLERGIES: Updated in citizenmade. PERSONAL AND FAMILY HEALTH HISTORY: Updated in citizenmade. The patient's last Pap was 01/13/2011, and that was normal. OBJECTIVE: VITAL SIGNS: Can be found in Epic. No exam was done. Discussed contraceptive methods, and printed information was given. Again there appears to be no contraindications to placing patient on contraceptives at this time. ASSESSMENT: Contraceptive counseling. PLAN: Patient to call on day 1 of her period. Will plan appointment for IUD insertion. Patient also to check with her insurance to make sure it is covered. Total time with patient was 20 minutes. Total education was 14 minutes, discussing contraceptives, their use, administration, side effects, and warning signs. AJC:SAMIRA C: CONFIRM #: [id number] Nini Stephens APRN, CNP - 04/07/2014 5:23 PM CDT see dictation documented in this encounter Plan of Treatment Not on filedocumented as of this encounter Visit Diagnoses Diagnosis General counseling for initiation of con traceptive measures - Primary General counseling for initiation of oth er contraceptive measures documented in this encounter Care Teams Aquatic Physiotherapist Relationship Specialty Start Date End Date Anny Daily APRN, CNP PCP - General 12/16/13 04/09/16 [address] [place] AM[place] [address] documented as of this encounter
--- OUTSIDE RECORDS SUMMARY | 2022-04-17 15:23 | XMS_ITS | Encounter Summary ---
:1980 Author [facility] Address [address] [place] [address] Care Team Providers Name Role Phone Anny Daily APRN, NAVAL SURFACE FIRE SUPPORT PLANNER Primary Care Provider Reason for Visit Reason Comments Questions Encounter Details Date Type Department Care Team Description 03/03/2014 Telephone [facility] Anny Daily APRN , Questions Medicine NAVAL SURFACE FIRE SUPPORT PLANNER [address] [address] [place] [address] [place] [address] [phone] (Wo rk) Social History Tobacco Use Types Packs/Day Years Used Date Smoking Tobacco: Never Assessed Sex Assigned at Date Recorded Not on file documented as of this encounter Nursing Notes Paris Farias RN - 03/03/2014 9:40 PM CDT Patient calls. She has Laparoscopic Gastric Bypass Surgery on 02/27/[address] Cueva at [facility]. She describes since starting her vitamins the past 3 stools have had approximate 6 crystals in the stools. Describes the crystal are the size of raw sugar and rock salt. She asks if could be from her Vitamin that she started this week? Advised to speak with Provider. She has an appointment in the morning with Dr. Cueva for Post Op which she will discussed symptoms then. Reviewed reasons for concern/evaluation this evening. Plans to monitor symptoms. documented in this encounter Plan of Treatment Not on filedocumented as of this encounter Visit Diagnoses Not on filedocumented in this encounter Care Teams Outreach Team Member Relationship Specialty Start Date End Date Anny Daily, PACKAGE REINSPECTOR, NAVAL SURFACE FIRE SUPPORT PLANNER PCP - General 12/16/13 04/09/16 [address] [place] AMITA [place]arden [address] documented as of this encounter
--- OUTSIDE RECORDS SUMMARY | 2022-04-17 15:23 | XMS_ITS | Encounter Summary ---
:1980 Author Organization [facility] Address [address] [place] [address] Care Team Providers Name Role Phone Xuan Dickens APRN, CNP Primary Care Provider Reason for Visit Reason Comments Post-Op Follow Up Encounter Details Date Type Department Care Team Description 08/06/2013 Telephone [place] [id number] [facility] Janis Ortega RN Post-Op Follow Up Surgery [address] [facility] [place], [place] [id number] Social History Tobacco Use Types Packs/Day Years Used Date Smoking Tobacco: Never Assessed Sex Assigned at Date Recorded Not on file documented as of this encounter Nursing Notes Janis Ortega RN - 08/06/2013 10:55 AM CST Standard postop follow-up. LM for pt to fall with any questions or concerns. Otherwise we'll see rachel scheduled for postop visit. ING AND SPLICING SUPERVISOR documented in this encounter Plan of Treatment Not on filedocumented as of this encounter Visit Diagnoses Not on filedocumented in this encounter Care Teams Chute Man Relationship Specialty Start Date End Date Xuan Dickens APRN, IMANI PCP - General 03/18/12 12/01/13 [address] [place], [place] [address] documented as of this encounter
--- OUTSIDE RECORDS SUMMARY | 2022-04-17 15:23 | XMS_ITS | Encounter Summary ---
:1980 Author Organization [facility] Address [address] [address] Care Team Providers Name Role Phone Anny Daily APRN, CNP Primary Care Provider [phone] Reason for Visit Reason Comments Annual Exam Encounter Details Date Type Department Care Team Description 03/29/[address] [facility] Anny Daily Rout ine physical examination (Primary Dx); Medicine [place] Depression; [address] [id number] [address] Borderline personality disorder; Drive [place], [place] Anxiety; [place] [address] Gastroesophageal reflux disease without esophagitis; [address] Anemia, unspecified anemia t ype; Encounter for vitamin deficiency screeni ng; [phone] Screening for d iabetes mellitus; (Fax) Screening for h yperlipidemia; Screening for d eficiency anemia; Pap smear for c ervical cancer screening; Screening for t hyroid disorder Social History Tobacco Use Types Packs/Day Years Used Date Smoking Tobacco: Never Assessed Sex Assigned at Date Recorded Not on file documented as of this encounter Last Filed Vital Signs Vital Sign Reading Time Taken Comments Blood Pressure 110/68 03/29/2015 1:11 PM CDT Pulse - - Temperature - - Respiratory Rate - - Oxygen Saturation - - Inhaled Oxygen Concentration - - Weight 86.6 kg (191 lb) 03/29/2015 1:11 PM CDT Height 176.5 cm (5' 9.5) 03/29/2015 1:11 PM CDT Body Mass Index 27.8 03/29/2015 1:11 PM CDT documented in this encounter Patient Instructions Patient InstructionsAnny Daily APRN, CNP - 03/29/2015 1:39 PM CDT 1. Your eye exam is up to date. 2. Your pap smear is due. 3. Your mammogram is due at age 39 years. 4. I recommend that you try to exercise 4-5 days per week or more, performing consistent cardiovascular exercise for 30 minute sessions or greater. 5. Today, we are checking several labs, and I will contact you with the results when they are available. If the results are normal, I will send you a message via [email or web address]. If anything is abnormal, I will contact you by phone. 6. Recommended vitamin D intake: 800 international units or more. 7. Recommended calcium intake: 1,000 mg daily. 8. I have referred you to psychiatry and psychology. documented in this encounter Progress Notes Calista Barr RN - 04/14/2015 9:36 AM CDT Quick Note: Dear Lennie, I am writing to let you know that your PAP and HPV is negative. This means that your pap result wasnormal. No cancer or precancerous cells were seen. However, your screening result shows the presence of yeast. Yeast and bacteria are commonly found in the vagina. We do not normally treat if you are not experiencing any symptoms. If you are experiencing any vaginal symptoms of burning, discharge, itching or foul odor, please call your clinic for treatment options. Your next PAP and HPV should be in 3 years. Continue to schedule your annual preventive exams for your overall health. Sincerely, Calista Barr, MORENA on behalf of Dr. Hortensia Morales, Otr Owner Operator Truck Driver [facility] Cervical Cancer Screening and Management Anny Daily APRN, CNP - 03/29/2015 4:56 PM CDT Chief concern: Chief Complaint Patient presents with ??? Annual Exam Past Medical History: Past Medical History Diagnosis Date ??? Depression (ACG) 03/01/2012 ??? Anemia 03/01/2012 Surgical History: Past Surgical History Procedure Laterality Date ??? Hx appendectomy ??? Cholecystectomy ??? Other surgical history 2004 SI joint fusion and cage ??? Gastric bypass surgery 02/2014 Family History: Family History Problem Relation Age of Onset ??? Cataracts Maternal Grandfather ??? Glaucoma Maternal Grandfather ??? Parkinsons Maternal Grandfather ??? Diabetes Neg Hx ??? Macular Degen Neg Hx ??? Retinal Detachment Neg Hx ??? Strabismus Neg Hx ??? Mental Illness Mother ??? Schizophrenia Mother ??? No Known Family History Problems Father ??? Cancer Maternal Grandmother breast Social History: History Social History ??? Marital Status: Significant [...] ??? Seat Belt Yes Social History Narrative Preventive Health Assessment: The patient performs monthly self breast exams. Pap smear is due. Lab Results Component Value Date/Time CHOLESTEROL 197 01/10/2011 1535 HDL CHOLESTEROL 38* 01/10/2011 1535 TRIGLYCERIDES 187* 01/10/2011 1535 LDL CALCULATED 122 01/10/2011 1535 Lab Results Component Value Date/Time LAB GLUCOSE 98 09/14/2014 1554 Immunization History Administered Date(s) Administered ??? Influenza TIV 0.5ml (36+ mos) 08/07/2008 ??? Tdap (Adacel) 01/10/2011 HPI: Lennie is a 34 y.o. female that presents to the clinic for a routine physical examination. She has a medical history of gastric bypass surgery, chronic low back pain, borderline personality disorder, anxiety, depression, anemia, and GERD. She had gastric bypass surgery in the summer of 2013, and has lost 170 lbs. Since she has lost weight, her back pain has improved immensely, and she hardly has pain. 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 She denies suicidal ideations, however recently cut her left lower leg. She used to cut herself when she was anxious. Lennie is taking prevacid for her reflux, and feels this works well. She has been having chief guard periods, and has not been anemic for several months. She reports regular menstrual periods, and denies any abnormal vaginal bleeding or discharge. Denies breast tenderness or nipple discharge. Review of Systems: Denies chest pain, shortness of breath, no abdominal pain, denies bowel or bladder changes. Denies numbness, tingling, or swelling in the extremities. Weight is stable. No fevers, chills, or night sweats. With the exception of any items noted above, the remainder of the complete ROS is negative. Current Medications: Current Outpatient Prescriptions on File Prior to Visit Medication Sig Dispense Refill ??? CALCIUM PHOSPHATE TRIB/VIT D3 (CITRACAL + D ORAL) Take by mouth. ??? cholecalciferol (VITAMIN D3) 1,000 unit Tab Take 1,000 Units by mouth daily (every 24 hours). ??? docusate sodium (COLACE) 100 mg capsule Take 1 capsule by mouth 2 times daily as needed for Constipation. 60 capsule 3 ??? ferrous sulfate 325 mg (65 mg iron) EC tablet Take 325 mg by mouth daily (every 24 hours). ??? ferrous sulfate 325 mg (65 mg iron) EC tablet Take 1 tablet by mouth daily (every 24 hours). 100tablet 3 ??? fluticasone (FLONASE) 50 mcg/actuation nasal spray Place 2 sprays into each nostril daily (every24 hours) for 30 days. Dose is for each nostril. Indications: ALLERGIC RHINITIS 16 g 0 ??? lansoprazole (PREVACID) 15 mg capsule Take 1 capsule by mouth daily (every 24 hours). Take before meals 90 capsule 3 ??? multivitamin (THERAGRAN) tablet Take 1 tablet by mouth daily (every 24 hours). ??? multivitamin, stress formula (VITAMIN B COMPLEX WITH C) tablet Take 1 tablet by mouth daily (every 24 hours). No current facility-administered medications on file prior to visit. Adverse Drug Reactions: Allergies Allergen Reactions ??? Adhesive Tape-Silicones Rash OBJECTIVE: Vital Signs: BP 110/68 mmHg Ht 1.765 m (5' 9.5) Wt 86.637 kg (191 lb) BMI 27.81 kg/m2 LMP 03/15/2015 (Exact Date) General: Patient alert, in NAD. HEENT: PERRLA. Bilateral TM's, external canals, oropharynx normal. Neck: Supple, without thyromegaly or mass. Upper Extremities: FROM with good strength, no lesions or deformities. CV: RRR without murmurs, rubs or gallops. Resp: Clear to auscultation without crackles, wheezes or distress. Breast exam: Nipples everted bilaterally, no suspicious nodules or masses noted, no dimpling or retractions. Abdomen: Soft, non-tender, without hepatosplenomegaly, masses, or hernias. Lymphatic: No neck, supraclavicular, axillary or groin lymphadenopathy. Lower Extremities: FROM, normal gait without edema, lesions, or deformity. Genitalia: External genital exam including urethra, vaginal extroitus, and anus well within normal limits. Cervix intact, no suspicious lesions. Vaginal vault pink, moist, no suspicious lesions identified. Pap smear obtained in standard fashion, bimanual exam normal, no cervical motion tenderness, no adnexal tenderness, uterus midline. Skin: No suspicious lesions. There are a few healing lacerations on the left lower extremity. No evidence of infection. Neuro: CN II-XII, motor & sensory function all intact. Psychiatric: Alert & oriented with normal affect and insight. Patient does not appear depressed or anxious. ASSESSMENT: Encounter Diagnoses Name Primary? Routine physical examination Yes ??? Depression ??? Borderline personality disorder ??? Anxiety (ACG) ??? Gastroesophageal reflux disease without esophagitis ??? Anemia, unspecified anemia type ??? Encounter for vitamin deficiency screening ??? Screening for diabetes mellitus ??? Screening for hyperlipidemia ??? Screening for deficiency anemia ??? Pap smear for cervical cancer screening ??? Screening for thyroid disorder PLAN: 1. Routine physical examination: Check CBC with differential, glucose, cholesterol, TSH. Pap smear performed, results are pending. I recommended that she try to exercise 4-5 days per week or more, performing consistent cardiovascular exercise for 30 minute sessions or greater. 2. Depression, borderline personality disorder, stress, anxiety: Referral to psychiatry and psychology for further evaluation. In the past, she has taken Valium as needed for panic attacks. She has been having panic attacks 1-2 days per week, and would be using this sparingly. I checked the [facility] website, and she has not had any recent prescriptions for this or any other benzodiazepines filled. 3. History of gastric bypass: Check iron levels, ferritin, vitamin D, vitamin B12. 4. GERD: Continue Prevacid. 5. History of anemia: Check CBC. Orders Placed This Encounter Procedures ??? Iron Binding Capacity (Incl Iron) ??? Vitamin D (In house) ??? Vitamin B-12 ??? Ferritin ??? Glucose ??? Cholesterol Fraction-LDLD If Trig High ??? Complete Blood Count W/Diff ??? Pap Test Order ??? TSH And Free T4 (FRT4 If TSH Abnorm) ??? HPV with 16 18 Genotyping ??? PSYCHIATRY CONSULT ADULT/PEDS (AMB) ??? PSYCHOLOGY CONSULT ADULT/PEDS (AMB) Patient Instructions 1. Your eye exam is up to date. 2. Your pap smear is due. 3. Your mammogram is due at age 39 years. 4. I recommend that you try to exercise 4-5 days per week or more, performing consistent cardiovascular exercise for 30 minute sessions or greater. 5. Today, we are checking several labs, and I will contact you with the results when they are available. If the results are normal, I will send you a message via [email or web address]. If anything is abnormal, I will contact you by phone. 6. Recommended vitamin D intake: 800 international units or more. 7. Recommended calcium intake: 1,000 mg daily. 8. I have referred you to psychiatry and psychology. Orders Placed This Encounter Medications ??? diazepam (VALIUM) 10 mg tablet Sig: Take 0.5 tablets by mouth daily as needed for Anxiety. Dispense: 30 tablet Refill: 0 Follow-up in 1 year, sooner PRN any concerns. Labs: We will mail lab results to patient. Will call if abnormal. Preventive health counseling provided: I recommended that she try to exercise 4- 5 days per week or more, performing consistent cardiovascular exercise for 30 minute sessions or greater. Dictation Disclaimer: Some notes are completed with voice-recognition dictation software. Typographical errors may result . Please contact me via [employer] staff message if you note any errors requiring clarification. documented in this encounter Miscellaneous Notes Miscellaneous - 10/12/2016 4:55 AM CSTNotes Recorded by Calista Barr RN on 04/14/2015 at 9:36 AMDear Lennie,I am writing to let you know that your PAP and HPV is negative. This means that your pap result was normal. No cancer or precancerous cells were seen.However, your screening result shows the presence of yeast. Yeast and bacteria are commonly found inthe vagina. We do not normally treat if you are not experiencing any symptoms. If you are experiencing any vaginal symptoms of burning, discharge, itching or foul odor, please call your clinic for treatment options.Your next PAP and HPV should be in 3 years. Continue to schedule your annual preventive exams for your overall health. Sincerely,Calista Barr RN on behalf ofDr. Hortensia Morales, Otr Owner Operator Truck Driver [facility] Cervical Cancer Screening and Management [employer]G HEALTHCARE PRACTITIONER Miscellaneous - 10/12/2016 4:55 AM CSTNotes Recorded by Calista Barr RN on 04/14/2015 at 9:36 AMDear Lennie,I am writing to let you know that your PAP and HPV is negative. This means that your pap result was normal. No cancer or precancerous cells were seen.However, your screening result shows the presence of yeast. Yeast and bacteria are commonly found inthe vagina. We do not normally treat if you are not experiencing any symptoms. If you are experiencing any vaginal symptoms of burning, discharge, itching or foul odor, please call your clinic for treatment options.Your next PAP and HPV should be in 3 years. Continue to schedule your annual preventive exams for your overall health. Sincerely,Calista Barr RN on behalf ofDr. Hortensia Morales, Otr Owner Operator Truck Driver [facility] Cervical Cancer Screening and Management ING HEALTHCARE PRACTITIONER documented in this encounter Plan of Treatment Not on filedocumented as of this encounter Procedures Procedure Name Priority Date/Time Associated Comments Diagnosis PAP TEST ORDER Routine 03/29/2015 1:57 PM Pap smear for Result s for this CDT cervical cancer procedure ar e in screening the results section. HPV WITH 16 18 Routine 03/29/2015 1:57 PM Results for this GENOTYPING, CDT procedure are i n CERVICAL/ENDOCERVICA the res ults L section. ANATOMICAL PATH Routine 03/29/2015 1:57 PM Result s for this LIQUID BASED CDT procedure are i n the results section. documented in this encounter Results Pap Smear (03/29/2015 1:57 PM CDT) Specimen (Source) Anatomical Collection Method Collection Time Re ceived Time Location / / Volume Laterality 03/29/2015 1:57 PM CDT Narrative HP CONVERSION - 04/05/2015 4:14 PM CDT Performed at [facility], [address] [place] [address] FINAL GYNECOLOGICAL CYTOLOGY REPORT Pathology #: [id number] ?Date Obtained: 03/29/2015 ? Date Received: 03/30/2015 INTERPRETATION/RESULTS: Negative for Intraepithelial Lesion or M alignancy. Fungal organisms morphologically consist ent with Angela species. SPECIMEN ADEQUACY: Satisfactory for Evaluation. ??Endocervi tre cells/transformation zone component present. [id number] Verified on 04/05/2015 ??by GUILLERMINA HERNANDEZ (electronic signature) CLINICAL NOTES: ?Abnormal bleeding: No, LMP: 03/03 11/15, Menstrual status: None ?Apply, Current form of therapy: None apply LIQUID BASED PAP SMEAR SPECIMEN TYPE: ?ROUTINE CERVICAL PAP TEST PLEASE NOTE: The pap smear is a screening test design ed to aid in the detection of cervical cancer and its pre cursor lesions. It is not a diagnostic procedure and alexandre uld not be used as the sole means of detecting cervical cancer. Both false-positive and false-negative report s may occur. ? End of Report Transcriptions 10/12/2016 4:55 AM CSTNotes Recorded by Calista Barr RN on 04/14/2015 at 9:36 Mey [place], I am writing to let you know that your PAP and HPV is negative. This means that your pap result was normal. No cancer or precancerous cells were seen. However, your screening result shows the presence of yeast. Yeast and bacteria are commonly found in the vagina. We do not normally treat if you are not experiencing any symptoms. If you are experiencin g any vaginal symptoms of burning, disch arge, itching or foul odor, please call your clinic for treatment options. Your next PAP and HPV should be in 3 years. Continue to schedule your annual preventive exams for your overall health.Sincerely, Calista Barr RN on behalf ofDr. Camila Morales, Medical DirectorTrihealthk [place] Cervical Cancer Screening and Management Anny Daily APRN, BILINGUAL TEACHER LAB_1 Performing Organization Address City/State/ZIP Code Phon e Number HP CONVERSION HPV with 16 18 Genotyping (03/29/2015 1:57 PM CDT) [facility] Method Time Signature HPV High Risk Not Detected HP CONVERSION 16 HPV High Risk Not Detected HP CONVERSION 18 Other HPV Not Detected HP CONVERSION High Risk Not 16/18 Comment: The [employer] HPV Test is a qualitative in v itro test for the detection of Human Papillomavirus in [facility] patient specimens. ??The test utilizes amplifica tion of target DNA by Polymerase Chain Reaction (PCR) and n ucleic acid hybridization for the detection of 14 hi gh-risk (HR) HPV types. The assay tests for high risk typ es (16, 18, 31, 33, 35, 39, 45, 51, 52, 56, 58, 59, 66 and 6 8). NOTE: This test was developed and its pe rformance characteristics determined by [facility] [employer]. It has not been cleared or approved by [facility]. The laboratory is regulated under CLIA as qualified to perform high-complexity testing. This test is used for clinical purposes. It should not be regarded as investigational or fo r research. Specimen Anatomical Collection Method Collection Time Receive d Time (Source) Location / / Volume Laterality 03/29/2015 1:57 PM 5 1:57 CDT PM CDT Narrative HP CONVERSION - 04/02/2015 12:49 PM CDT Performed at [facility], [facility] [place] [address] Transcriptions 10/12/2016 4:55 AM CSTNotes Recorded by Calista Barr RN on 04/14/2015 at 9:36 Mey Lennie, I am writing to let you know that your PAP and HPV is negative. This means that your pap result was normal. No cancer or precancerous cells were seen. However, your screening result shows the presence of yeast. Yeast and bacteria are commonly found in the vagina. We do not normally treat if you are not experiencing any symptoms. If you are experiencin g any vaginal symptoms of burning, disch arge, itching or foul odor, please call your clinic for treatment options. Your next PAP and HPV should be in 3 years. Continue to schedule your annual preventive exams for your overall health.Sincerely, Calista Barr RN on behalf ofDr. Camila Morales, Medical DirectorBigfork Valley Hospital Cervical Cancer Screening and Management Anny Daily APRN, CNP LAB_1 Performing Organization Address [facility] Phon e Number HP CONVERSION Pap Test Order (03/29/2015 1:57 PM CDT) [facility] Method Time Signature Pap Smear Collected HP CONVERSION Monolayer tracking test Specimen Anatomical Collection Method Collection Time Receive d Time (Source) Location / / Volume Laterality 03/29/2015 1:57 PM 5 8:15 CDT AM CDT Narrative HP CONVERSION - 03/29/2015 1:57 PM CDT Performed at [facility], [facility] [place] [address] Anny Daily APRN, CNP LAB_1 Performing Organization Address [facility] Phon e Number HP CONVERSION documented in this encounter Visit Diagnoses Diagnosis Routine physical examination - Primary Routine general medical examination at a health care facility Depression Depressive disorder, not elsewhere class ified Borderline personality disorder (HRC) Borderline personality disorder Anxiety (HRC) Anxiety state, unspecified Gastroesophageal reflux disease without esophagitis Esophageal reflux Anemia, unspecified anemia type Encounter for vitamin deficiency screeni ng Screening for diabetes mellitus Screening for hyperlipidemia Screening for lipoid disorders Screening for deficiency anemia Screening for other and unspecified defi ciency anemia Pap smear for cervical cancer screening Screening for malignant neoplasm of the cervix Screening for thyroid disorder documented in this encounter Care Teams Customer Complaint Service Supervisor Relationship Specialty Start Date End Date Anny Daily, BOILER SHOP MECHANIC, BILINGUAL TEACHER PCP - General 12/16/13 04/09/[id number] [place] [id number] documented as of this encounter
--- OUTSIDE RECORDS SUMMARY | 2022-04-17 15:23 | XMS_ITS | Encounter Summary ---
:1980 Author Organization [facility] Address [address] [place] [address] Care Team Providers Name Role Phone Xuan Dickens APRN, PAPER INSPECTOR Primary Care Provider Reason for Visit Reason Comments HIP PAIN Encounter Details Date Type Department Care Team Description 10/08/2012 Surgical Consult [facility] Darren Arias, [facility] COLLEEN bursitis (Primary [address] [facility] [place]x) [place] [address] [phone] Social History Tobacco Use Types Packs/Day Years Used Date Smoking Tobacco: Never Assessed Sex Assigned at Date Recorded Not on file documented as of this encounter Last Filed Vital Signs Vital Sign Reading Time Taken Comments Blood Pressure - - Pulse - - Temperature - - Respiratory Rate - - Oxygen Saturation - - Inhaled Oxygen Concentration - - Weight 156.5 kg (345 lb) 10/08/2012 4:02 PM HEM INSPECTOR Height 177.8 cm (5' 10) 10/08/2012 4:02 PM HEM INSPECTOR Body Mass Index 49.5 10/08/2012 4:02 PM HEM INSPECTOR documented in this encounter Patient Instructions Patient InstructionsPaige Yip - 10/08/2012 4:02 PM CST Darren Arias PA-C Sports Medicine and General Orthopedics Supervisor Safety Deposit: Chata Rogers Please contact Chata for all administrative questions at [phone] Please call Nurse Triage at [phone] for all medical questions Fax number: [phone] Please contact your Pharmacy for all medication refills If you develop new or worsening symptoms call [facility] at [phone] INSPECTOR documented in this encounter Progress Notes Darren Arias PA-C - 10/08/2012 9:38 PM CST Progress Notes signed by Darren Arias PA-C at 10/16/121427 Author: Darren Arias PA-C Service: (none) Author Type: Physician Stockroom Associate Filed: 10/16/128 Note Time: 10/08/122137 Status: Signed Help Desk Operator: Darren Arias PA-C (Physician Stockroom Associate) NAME: LENNIE MOLINA VISIT: [id number] DICTATING CLINICIAN: DARREN ARIAS PA-C JOB: [id number] Med JOB: [id number] LOC: 3711 CLINIC PROGRESS NOTE DATE OF VISIT: 10/08/2012 : 1980 Patient is in clinic today for examination of bilateral hip pain. She is a patient of Kymberly Blanco who has been evaluated for low back pain. She has previously undergone SI fusions, and in 2008 has had increasing pain about that of the anterior groin and lateral hip pain. She has had a previous injection which was done under fluoroscopy which gave her significant pain relief. Recent CT scan to evaluate her fusion of the SI joint demonstrated some impingement in the anterior hip and she was referred to our office for further evaluation after being seen by Kymberly Blanco on 10/02/2012. She denies any trauma. Denies any other injuries. Complains of pain about that of her anterior groin, as well as the lateral hip. It is worse with activities and improves with rest. She states her lateral hip pain is worse than her anterior hip pain. Her primary complaint is right-sided hip pain. CURRENT MEDICAL PROBLEMS: Anemia. CURRENT MEDICATIONS AND ADR/ALLERGIES: Reviewed and updated in Epic. PAST SURGICAL HISTORY: Previous SI fusion. SOCIAL HISTORY: Patient lives with her boyfriend and her mom. Denies any tobacco use and drinks occasionally. REVIEW OF SYSTEMS: Significant for glasses, heartburn, arthritis, migraines, anemia and chronic back pain. FAMILY HISTORY: Significant for grandparents with cancer and osteoporosis. PHYSICAL EXAM: Examination today demonstrates a 32-year-old female of height and weight of 70 inches and 345 pounds. Bilateral hip exam today demonstrates she has good range of motion bilateral hips. She has tenderness to palpation over her trochanteric region on her right side in comparison to her left. All tendons are intact with 5/5 strength. She has a 2+ pedal pulse and is neurovascularly intact with good capillary refill. Radiographs and previous CT scans were reviewed. These demonstrated no degenerative changes appreciated about that of the hip joint itself. No evidence of obvious evidence of acute bony abnormalities or stress reaction appreciated. IMPRESSION: Trochanteric bursitis. PLAN: I discussed conservative versus surgical management. After a lengthy discussion regarding this recommended physical therapy versus that of a cortisone injection. After a lengthy discussion regarding this she wishes to try some physical therapy. If it does not improve, a trochanteric bursitis injection might be of some benefit, as well as an intraarticular injection. Patient was satisfied with this and will follow up with me in 6 weeks for reexamination. If she has any problems or complications, return to clinic sooner. Total time spent with this patient and her boyfriend who was present the entire time was 25 minutes. cc: KYMBERLY BLANCO PA-C IM: 10/09/2012 09:01:31 am MT: 3 INSPECTOR documented in this encounter Plan of Treatment Not on filedocumented as of this encounter Visit Diagnoses Diagnosis Trochanteric bursitis - Primary Enthesopathy of hip region documented in this encounter Care Teams Arcade Attendant Relationship Specialty Start Date End Date Xuan Dickens APRN, PAPER INSPECTOR PCP - General 03/18/12 12/01/13 [address] [place] [address] documented as of this encounter
--- OUTSIDE RECORDS SUMMARY | 2022-04-17 15:23 | XMS_ITS | Encounter Summary ---
:1980 Author [facility] Address [address] [place] [address] Care Team Providers Name Role Phone KillianCrys haywardrenee Machuca APRN, IMANI Primary Care Provider [phone] Encounter Details Date Type Department Care Team Description 09/14/[address] Scan Dizziness [address] [place] [address] Social History Tobacco Use Types Packs/Day Years Used Date Smoking Tobacco: Never Assessed Sex Assigned at Date Recorded Not on file documented as of this encounter Plan of Treatment Not on filedocumented as of this encounter Procedures Procedure Name Priority Date/Time Associated Diagnosis Comme nts CT HEAD WO IV CONT STAT 09/14/2014 4:00 PM Dizziness Res ults for this PRESS SET UP PERSON procedure are i n the results section. documented in this encounter Results CT Head WO IV Cont (09/14/2014 4:00 PM PRESS SET UP PERSON) Anatomical Region Laterality Modality Head Other Specimen (Source) Anatomical Location Collection Method / Collectio n Time Received Time / Laterality Volume Impressions 09/14/2014 4:00 PM PRESS SET UP PERSON IMPRESSION: ??No acute intracranial pathology. Narrative 09/14/2014 4:00 PM PRESS SET UP PERSON TECHNIQUE: ??5 mm images through the hea d without contrast. COMPARISON: ??None FINDINGS: ??No evidence of hemorrhage, m ass effect, midline shift or acute infarct. ??No abnormal intra or extraaxial fluid collections or masses. ??Normal size and configuration of the ventricular syst em. ??Mastoids and visualized sinuses ar e unremarkable. Cranium intact. Procedure Note Ervin Fernandez MD - 02/20/2016Format ting of this note might be different from the original. TECHNIQUE: 5 mm images through the head without contrast. COMPARISON: None FINDINGS: No evidence of hemorrhage, mas s effect, midline shift or acute infarct. No abnormal intra or extraaxial fluid collections or masses. Normal size and configuration of the ventricular system. Mastoids and visualized sinuses are unremarkable. Cranium intact. IMPRESSION IMPRESSION: No acute intracranial pathol ogy. Doni Ayala MD RAD CT documented in this encounter Visit Diagnoses Diagnosis Dizziness Dizziness and giddiness documented in this encounter Care Teams Diesel Truck Driver Relationship Specialty Start Date End Date Anny Daily, NEWS WIRE PHOTO OPERATOR, DATA REPORTING ANALYST PCP - General 12/16/13 04/09/16 [address] [address] [place] [id number] documented as of this encounter
--- OUTSIDE RECORDS SUMMARY | 2022-04-17 15:23 | XMS_ITS | Encounter Summary ---
:[address] [facility] Address [address] [place] [address] Care Team Providers Name Role Phone Anny Daily OPERATIONS REPRESENTATIVE, HOSPICE VOLUNTEER COORDINATOR Primary Care Provider [phone] Reason for Visit Reason Comments Prior Authorization Request Encounter Details Date Type Department Care Team Description 02/25/2014 Telephone [facility] Anny Daily Prio r Authorization Medicine OPERATIONS REPRESENTATIVE, HOSPICE VOLUNTEER COORDINATOR Request [address] [address] [address] [place] [address] [place] [phone] (Wo rk) Social History Tobacco Use Types Packs/Day Years Used Date Smoking Tobacco: Never Assessed Sex Assigned at Date Recorded Not on file documented as of this encounter Nursing Notes Tarsha Vallejo MA - 02/27/2014 12:13 PM CDT ELEANOR approved for lansoprazole (previcid) from 02/25/14 through 02/25/15. Notified pt and pharmacy. Tarsha Vallejo MA - 02/25/2014 10:45 AM CDT PRIOR AUTHORIZATION OR CHANGE MEDICATIONS: ELEANOR faxed to [employer] Awaiting approval. Drug Name/Strength: Lansoprazole (previcid) 15mg Sig: Take 1 capsule by mouth daily (every 24hrs.) take before meals. Reason Medication not covered: (required field) not covered Formulary alternatives: (required field) N/A Pharmacy: [facility] Fax # or address: [phone] Clinician Name: Anny Daily Insurance Carrier: [employer] documented in this encounter Plan of Treatment Not on filedocumented as of this encounter Visit Diagnoses Not on filedocumented in this encounter Care Teams Running Rigger Relationship Specialty Start Date End Date Anny Daily, OPERATIONS REPRESENTATIVE, HOSPICE VOLUNTEER COORDINATOR PCP - General 12/16/13 04/09/16 [address] [place] [address] documented as of this encounter
--- OUTSIDE RECORDS SUMMARY | 2022-04-17 15:23 | XMS_ITS | Encounter Summary ---
:1980 Author Organization [facility] Address [address] [place] [address] Care Team Providers Name Role Phone Anny Daily APRN, ECG TECHNICIAN Primary Care Provider [phone] Reason for Visit Reason Comments Provider Orders Encounter Details Date Type Department Care Team Description 12/22/2013 Telephone [facility] Anny Daily APRN , Provider Orders Medicine [facility] [address] [facility] [address] [address] [place] [address] [place] [address] [phone] (Wo rk) Social History Tobacco Use Types Packs/Day Years Used Date Smoking Tobacco: Never Assessed Sex Assigned at Date Recorded Not on file documented as of this encounter Nursing Notes Radha Dumont LPN - 12/22/2013 4:41 PM CDT Pt notified. Anny Daily APRN, CNP - 12/22/2013 4:21 PM CDT H pylori lab has been ordered. Please notify the patient. Radha Dumont LPN - 12/22/2013 4:11 PM CDT Spoke with pt and she has CT scheduled. Pt would like an order for H pylori, please review and advise. Audrey Acuña RN - 12/22/2013 4:03 PM CDT Pt calling back. Advised of note below from PCP. Pt states since she is going to lab for test, can she have labwork done to test for stomach ulcer as well? Please call back when approved/denied Jinny Marroquin - 12/22/2013 3:56 PM CDT Patient calling back to speak with a nurse,please advise. Radha Dumont LPN - 12/22/2013 3:51 PM CDT Called pt got her VM left message for pt to rtn call to clinic for Anny's message and to do screening questions for CT. [phone]. Anny Daily APRN, IMANI - 12/22/2013 3:[address] scan of the abdomen has been ordered as well as a urine test for the patient to complete beforehand. Audrey Acuña RN - 12/22/2013 3:09 PM CDT Action requested: Provider orders Additional Info: Spoke with pt, states since being seen on 12/02/13, no change in symptoms, no new symptoms, no improvement. Would like to proceed with CT if still suggested. Per OV notes, PCP dictated Please call me if you develop any new or worsening symptoms, and we can discuss ordering a CT scan ofthe abdomen. Please call when order placed Contact: Natasha Reese - 12/22/2013 2:02 PM CDT pt stated she was to call Anny Daily if her stomach pain persisted, and Anny would consider ordering a MRI, please advise documented in this encounter Plan of Treatment Not on filedocumented as of this encounter Visit Diagnoses Diagnosis Abdominal pain, generalized - Primary documented in this encounter Care Teams Features Editor Relationship Specialty Start Date End Date Anny Daily, TOUR OPERATOR, ECG TECHNICIAN PCP - General 12/16/13 04/09/16 [address] [address] [place] [address] documented as of this encounter
--- OUTSIDE RECORDS SUMMARY | 2022-04-17 15:23 | XMS_ITS | Encounter Summary ---
:1980 Author Organization [facility] Address [address] [place] [address] Care Team Providers Name Role Phone Xuan Dickens APRN, VACUUM DRUM DRIER OPERATOR Primary Care Provider [phone] Reason for Visit Reason Comments CONSULT Abdominal Pain Encounter Details Date Type Department Care Team Description 07/25/2013 Initial Consult [facility] [address] Dustin Rivera, Grayson huffman (Primary General Surgery MD Dx) [address] [facility]. [address] [place] [address] [place] [phone] [address] Social History Tobacco Use Types Packs/Day Years Used Date Smoking Tobacco: Never Assessed Sex Assigned at Date Recorded Not on file documented as of this encounter Last Filed Vital Signs Vital Sign Reading Time Taken Comments Blood Pressure 135/87 07/25/2013 2:06 PM THEATER EDUCATION TEACHER Pulse 83 07/25/2013 2:06 PM THEATER EDUCATION TEACHER Temperature - - Respiratory Rate - - Oxygen Saturation - - Inhaled Oxygen Concentration - - Weight 158.8 kg (350 lb) 07/25/2013 2:06 PM THEATER EDUCATION TEACHER Height 175.3 cm (5' 9) 07/25/2013 2:06 PM THEATER EDUCATION TEACHER Body Mass Index 51.69 07/25/2013 2:06 PM THEATER EDUCATION TEACHER documented in this encounter Patient Instructions Patient InstructionsJanis Ortega RN - 07/25/2013 2:55 PM CST Reviewed and gave the patient [facility] surgical packet. No eating or drinking anything after midnight the night before surgery. Instructed about 2 showers with Hibiclens. Stop Aspirin and Ibuprofen products 5 days before surgery. Reviewed and gave patient postoperative instructions for Laparoscopic Cholecystectomy. Reviewed lifting restrictions, wound care and when to call the surgeon's office (phone numbers provided). Patient verbalized understanding. TER EDUCATION TEACHER documented in this encounter Progress Notes Dustin Rivera MD - 07/30/2013 3:55 PM CST CC: Abdominal pain HPI: 33 y.o. female who comes in with known gallstones. She had W/U done last year and U/S showed sludge and stones. She held off on surgery but recently the pain has become much worse than before. Post-prandial pain, RUQ, right shoulder and in her back. Last night she had associated N/V. No F/C. she is losing her appetite. Has been able to eat bland food. Has lost some weight recently on purpose, trying to become more healthy, and she thinks this may have made the gallstones worse. In clinic today she states she feels ok, just a little bit of pain. Past Medical History Diagnosis Date ??? Depression 03/01/2012 ??? Anemia 03/01/2012 No past surgical history on file. Current Outpatient Prescriptions Medication Sig Dispense Refill [...] daily (every 24 hours). 100tablet 3 ??? multivitamin, stress formula (VITAMIN B COMPLEX WITH C) tablet Take 1 tablet by mouth daily (every 24 hours). No current facility-administered medications for this visit. No Known Allergies Family History Problem Relation Age of Onset ??? Cataracts Maternal Grandfather ??? Glaucoma Maternal Grandfather ??? Diabetes Neg Hx ??? Macular Degen Neg Hx ??? Retinal Detachment Neg Hx ??? Strabismus Neg Hx History Substance Use Topics ??? Smoking status: Never Smoker ??? Smokeless tobacco: Not on file Comment: Quit smoking: ??? Alcohol Use: Yes Comment: Alcoholic Drinks/day: Amount:1-2 drinks; Freq:Never; Review of Systems - General ROS: negative for - fever, malaise, weight gain or weight loss ENT ROS: negative for - headaches Respiratory ROS: negative for - cough, hemoptysis, orthopnea or shortness of breath Cardiovascular ROS: negative for - chest pain, dyspnea on exertion, edema, irregular heartbeat or rapid heart rate Gastrointestinal: No change in bowel habits, no diarrhea or constipation : no change in urinary habits, no dysuria, polyurnia, Musculoskeletal ROS: negative for - gait disturbance, joint pain, muscle pain or muscular weakness Neurological ROS: negative for - behavioral changes, confusion, impaired coordination/balance, numbness/tingling or seizures Rest of Complete ROS was negative aside from HPI. PHYSICAL EXAMINATION: BP 135/87 Pulse 83 Ht 5' 9 (175.3 cm) Wt 350 lb (148354 g) BMI 51.66 kg/m2 GENERAL APPEARANCE: Lennie Sal is a normal appearing 33 y.o. female who is appropriate. Patient is neat and clean, and looks their stated age. Patient is awake and alert, comfortable and in noacute distress while supine. EYES: PERRL, Sclera anicteric, EOMI, pink healthy conjunctiva HEAD, EARS, NOSE, MOUTH, AND THROAT: Moist mucous membranes NECK: Thyroid normal, trachea midline, No cervical LAD CHEST WALL:no deformity RESPIRATORY: CTA B/L CARDIOVASCULAR: Sinus, without R/M/G ABDOMEN: Obese, Soft, Mild RUQ pain with palpation. No peritoneal signs. MUSCULOSKELETAL: Strong distal pulses in all extremities no edema, no jaundice LYMPHATIC: No axillary or inguinal LAD NEUROLOGIC: Non-focal PSYCHIATRIC: mood and affect congruent Lab Results Component Value Date HGB 11.0* 03/01/2012 HCT 33.1* 03/01/2012 MCV 81.3 03/01/2012 Lab Results Component Value Date ALT 364* 03/01/2012 AST 272* 03/01/2012 GGT 274* 03/08/2012 The gallbladder contains echogenic material in its dependent portion with shadowing posteriorly consistent with small gallstones and probable sludge. No other abnormality of the gallbladder is seen. The common bile duct is within normal limits in size and there are no gallstones and within the visualized duct. There is no evidence for dilatation of intrahepatic bile ducts. No other abnormality of the liver, right kidney and pancreas is seen. CONCLUSION: Small gallstones and probable sludge within the gallbladder. A/P: 33 y.o. female with symptomatic cholelithiasis. Discussed surgical treatment of cholelithiasis with laparoscopic cholecystectomy. Discussed risks benefits and alternatives which include but are not limited to, bleeding, infection, anesthesia, common bile duct or other organ injury requiring extens faisal surgical repair, bile leak, hernia formation at incision sites, prolonged diarrhea, conversion to open surgery or fatty food intolerance. Patient understood risks benefits and alternatives and wants to go ahead and schedule procedure. Because of youth and good ghazala, this note should constitute pre-op history and physical. Dustin Rivera MD 3:54 PM 07/30/2013 TER EDUCATION TEACHER documented in this encounter Plan of Treatment Not on filedocumented as of this encounter Visit Diagnoses Diagnosis Cholelithiasis - Primary Calculus of gallbladder without mention of cholecystitis or obstruction documented in this encounter Care Teams Investment Officer Relationship Specialty Start Date End Date Xuan Dickens, INTERNATIONAL MARKETING MANAGER, VACUUM DRUM DRIER OPERATOR PCP - General 03/18/12 12/01/13 [address] [place] [address] documented as of this encounter
--- OUTSIDE RECORDS SUMMARY | 2022-04-17 15:23 | XMS_ITS | Encounter Summary ---
:1980 Author Organization [facility] Address [address] [place] [address] Care Team Providers Name Role Phone Xuan Dickens APRN, CNP Primary Care Provider Reason for Visit Reason Comments Appt. Needed Encounter Details Date Type Department Care Team Description 09/23/2013 Telephone [facility] Kaylynn Young Appt. Needed [address] [place] [address] Social History Tobacco Use Types Packs/Day Years Used Date Smoking Tobacco: Never Assessed Sex Assigned at Date Recorded Not on file documented as of this encounter Nursing Notes Kaylynn Young - 09/23/2013 3:44 PM CST Pt has had abscess on left labia drained recently, and now there is a hard lump. But she is having pain on the right side. Pt would like appt. Scheduled. THODONTIST documented in this encounter Plan of Treatment Not on filedocumented as of this encounter Visit Diagnoses Not on filedocumented in this encounter Care Teams Explosives Operator Relationship Specialty Start Date End Date Xuan Dickens APRN, PORCELAIN ENAMELING SUPERVISOR PCP - General 03/18/12 12/01/13 [address] [place], [place] [address] documented as of this encounter
--- OUTSIDE RECORDS SUMMARY | 2022-04-17 15:23 | XMS_ITS | Encounter Summary ---
:1980 [facility] Address [address] [place] [address] Care Team Providers Name Role Phone Anny Daily APRN, CNP Primary Care Provider [phone] Encounter Details Date Type Department Care Team Description 12/16/2013 Lab Visit [facility] Abdominal pain, generalized [address] [place], [place] [address] Social History Tobacco Use Types Packs/Day Years Used Date Smoking Tobacco: Never Assessed Sex Assigned at Date Recorded Not on file documented as of this encounter Progress Notes Anny Daily APRN, CNP - 12/16/2013 2:55 PM CDT Quick Note: Pt notified of lab results during her appointment. documented in this encounter Miscellaneous Notes Miscellaneous - 10/12/2016 8:52 PM CSTNotes Recorded by KIMBER Graham on 12/16/2013 at 2:55 PMPt notified of lab results during her appointment. DAMAGE ADJUSTER Miscellaneous - 10/12/2016 8:52 PM CSTNotes Recorded by KIMBER Graham on 12/16/2013 at 2:55 PMPt notified of lab results during her appointment. DAMAGE ADJUSTER Miscellaneous - 10/12/2016 8:52 PM CSTNotes Recorded by KIMBER Graham on 12/16/2013 at 2:55 PMPt notified of lab results during her appointment. DAMAGE ADJUSTER Miscellaneous - 10/12/2016 8:52 PM CSTNotes Recorded by KIMBER Graham on 12/16/2013 at 2:55 PMPt notified of lab results during her appointment. DAMAGE ADJUSTER Miscellaneous - 10/12/2016 8:52 PM CSTNotes Recorded by KIMBER Graham on 12/16/2013 at 2:55 PMPt notified of lab results during her appointment. DAMAGE ADJUSTER documented in this encounter Plan of Treatment Not on filedocumented as of this encounter Procedures Procedure Name Priority Date/Time Associated Diagnosis Comme nts URINE MICROSCOPIC STAT 12/16/2013 2:21 PM Resu lts for this CDT procedure are i n the results section. URINALYSIS ROUTINE, STAT 12/16/2013 2:21 PM Abdominal pain, Results for this MICRO/CULTURE IF POS CDT generalized procedu re are in the results section. COMPLETE BLOOD STAT 12/16/2013 2:13 PM Abdominal pain, Resu lts for this COUNT-W/DIFF CDT generalized procedure are i n the results section. LIVER PANEL(HEPATIC STAT 12/16/2013 2:13 PM Abdominal pain, Results for this FUNCTION PANEL) CDT generalized procedure ar e in the results section. DIFFERENTIAL STAT 12/16/2013 2:13 PM Results f or this CDT procedure are i n the results section. documented in this encounter Results URINE MICROSCOPIC (12/16/2013 2:21 PM CDT) [facility] gist Method Time Signature Urine WBC None seen 0 - 4 HP CONVERSION Urine RBC 0-2 0 - 2 HP CONVERSION Epithelial Occasional HP CONVERSION Cells Specimen Anatomical Collection Method Collection Time Receive d Time (Source) Location / / Volume Laterality 12/16/2013 2:21 PM 4 2:21 CDT PM CDT Narrative HP CONVERSION - 12/16/2013 2:35 PM CDT Performed at [facility], [address] [place] [address] Transcriptions 10/12/2016 8:52 PM CSTNotes Recorded by KIMBER Graham on 12/16/2013 at 2:55 PMPt notified of lab results during her appointment. Anny Daily APRN, CNP LAB_1 Performing Organization Address [facility] Phon e Number HP CONVERSION (ABNORMAL) URINALYSIS ROUTINE, MICRO/CULTURE IF POS (12/16/2013 2:21 PM CDT) [facility]ist Method Time Signature Urine Type Urine:clean HP CONVERSION cat Turbidity Clear Clear HP CONVERSION U BILI Negative Negative HP CONVERSION Blood Urine Small (A) Negative HP CONVERSION Glucose, Negative Neg-30 HP CONVERSION Qualitative U mg/dL Ketones Negative Negative HP CONVERSION Leukocyte Negative Negative HP CONVERSION Esterase Urine Nitrite Urine Negative Negative HP CONVERSION pH Urine 6.0 5.0 - 8.0 HP CONVERSION Protein Urine Negative Neg - Trace HP CONVERSION mg/dL U Specific 1.020 1.005 - HP CONVERSION [place] 1.030 Urobilinogen Negative Negative HP CONVERSION Urine Specimen Anatomical Collection Method Collection Time Receive d Time (Source) Location / / Volume Laterality 12/16/2013 2:21 PM 4 2:21 CDT PM CDT Narrative HP CONVERSION - 12/16/2013 2:35 PM CDT Performed at [facility], [address] [place] [address] Transcriptions 10/12/2016 8:52 PM CSTNotes Recorded by KIMBER Graham on 12/16/2013 at 2:55 PMPt notified of lab results during her appointment. Anny Daily APRN, CNP LAB_1 Performing Organization Address City/[facility] Phon e Number HP CONVERSION Differential (12/16/2013 2:13 PM CDT) P athologist Signature Absolute 7.9 1.8 - 8.0 HP CONVERSION Neutrophils Absolute 2.7 1.1 - 4.0 HP CONVERSION Lymphocytes Absolute 0.6 0.2 - 0.8 HP CONVERSION Monocytes Absolute 0.2 0.0 - 0.5 HP CONVERSION Eosinophils Absolute 0.0 0.0 - 0.2 HP CONVERSION Basophils Specimen Anatomical Collection Method Collection Time Receive d Time (Source) Location / / Volume Laterality 12/16/2013 2:13 PM 4 2:12 CDT PM CDT Narrative HP CONVERSION - 12/16/2013 2:18 PM CDT Performed at [facility], [address] [place] [address] Transcriptions 10/12/2016 8:52 PM CSTNotes Recorded by KIMBER Graham on 12/16/2013 at 2:55 PMPt notified of lab results during her appointment. Anny Daily APRN, CNP LAB_1 Performing Organization Address City/[facility] Phon e Number HP CONVERSION Liver Panel(Hepatic Function Panel) (12/16/2013 2:13 PM CDT) [facility] [employer] Method Time Signature Alk Phos 54 25 - 135 HP CONVERSION U/L Bilirubin Total 0.3 0.2 - 1.2 HP CONVERSION mg/dL Bilirubin, Direct 0.1 0.0 - 0.4 HP CONVERSIO N mg/dL Protein Total, Serum 7.8 5.7 - 8.3 HP CONVER UNRULY g/dL Albumin 4.5 3.4 - 5.0 HP CONVERSION g/dL Aspartate 33 0 - 45 HP CONVERSION Aminotransferase U/L Alanine 43 4 - 55 HP CONVERSION Aminotransferase U/L Specimen Anatomical Collection Method Collection Time Receive d Time (Source) Location / / Volume Laterality 12/16/2013 2:13 PM 4 2:12 CDT PM CDT Narrative HP CONVERSION - 12/16/2013 2:34 PM CDT Performed at [facility], [address] [place] [address] Transcriptions 10/12/2016 8:52 PM CSTNotes Recorded by KIMBER Graham on 12/16/2013 at 2:55 PMPt notified of lab results during her appointment. Anny Daily APRN, CNP LAB_1 Performing Organization Address [facility] Phon e Number HP CONVERSION (ABNORMAL) Complete Blood Count W/Diff (12/16/2013 2:13 PM CDT) [email or web address] Method Time Signature White Blood Cell 11.4 (H) 3.8 - HP CONVERSION Count 11.0 Red Blood Cell 4.30 3.70 - HP CONVERSION Count 5.20 Hemoglobin 11.0 (L) 11.8 - HP CONVERSION 15.5 g/dL Hematocrit 34.0 (L) 35.0 - HP CONVERSION 46.0 % Mean Corpuscular 79.0 (L) 80.0 - HP CONVERSION Volume 100.0 fL RDW 15.0 11.0 - HP CONVERSION 15.0 % Platelet Count 383 140 - 450 HP CONVERSION Specimen Anatomical Collection Method Collection Time Receive d Time (Source) Location / / Volume Laterality 12/16/2013 2:13 PM 4 2:12 CDT PM CDT Narrative HP CONVERSION - 12/16/2013 2:18 PM CDT Performed at [facility], [address] [place] [address] Transcriptions 10/12/2016 8:52 PM CSTNotes Recorded by KIMBER Graham on 12/16/2013 at 2:55 PMPt notified of lab results during her appointment. Anny Daily APRN, CNP LAB_1 Performing Organization Address City/State/ZIP Code Phon e Number HP CONVERSION documented in this encounter Visit Diagnoses Diagnosis Abdominal pain, generalized documented in this encounter Care Teams Caustic Loader Relationship Specialty Start Date End Date Anny Daily APRN, CNP PCP - General 12/16/13 04/09/[address] [place] [address] [place] [address] documented as of this encounter
--- OUTSIDE RECORDS SUMMARY | 2022-04-17 15:23 | XMS_ITS | Encounter Summary ---
:1980 Author Organization [facility] Address [address] [place] [address] Care Team Providers Name Role Phone Xuan Dickens APRN, SURGEON/PRESIDENT Primary Care Provider [phone] Reason for Visit Reason Comments Refill Encounter Details Date Type Department Care Team Description 08/07/2013 Telephone [place] [facility] Radha Ahn, RN Refill [address] [place] [address] Social History Tobacco Use Types Packs/Day Years Used Date Smoking Tobacco: Never Assessed Sex Assigned at Date Recorded Not on file documented as of this encounter Nursing Notes Janis Ortega RN - 08/08/2013 5:15 PM CST Signed Rx placed for pt pickup and pt informed in a VM. Dustin Rivera MD - 08/08/2013 11:25 AM CST She can have [address]. . Dustin Rivera MD 11:24 AM 08/08/2013 Radha Ahn RN - 08/07/2013 3:06 PM CST Pt. calling in for refill request for percocet. Had Lap rima on Sunday. Rating pain 03/12. SHELL OPERATOR documented in this encounter Plan of Treatment Not on filedocumented as of this encounter Visit Diagnoses Not on filedocumented in this encounter Care Teams Carriage Dogger Relationship Specialty Start Date End Date Xuan Dickens APRN, SURGEON/PRESIDENT PCP - General 03/18/12 12/01/13 [address] [place] [address] documented as of this encounter
--- OUTSIDE RECORDS SUMMARY | 2022-04-17 15:23 | XMS_ITS | Encounter Summary ---
:1980 Author [facility] Address [address] [place] [address] Care Team Providers Name Role Phone Anny Daily APRN, IMANI Primary Care Provider [phone] Reason for Visit Reason Comments RESULTS, TEST Encounter Details Date Type Department Care Team Description 12/24/2013 Telephone [facility] Anny Daily APRN , RESULTS, TEST Medicine [place] [address] [facility] [address] [place] [address] [place] [address] [phone] (Wo rk) Social History Tobacco Use Types Packs/Day Years Used Date Smoking Tobacco: Never Assessed Sex Assigned at Date Recorded Not on file documented as of this encounter Nursing Notes Anny Daily APRN, CNP - 12/24/2013 3:07 PM CDT Update noted. Note closed. Radha Dumont LPN - 12/24/2013 2:53 PM CDT Spoke with patient and read her Anny's message verbatim, she verbalized understanding of message and denies lower left abd pain, declines referral to OBGYN @ this time. Pt states she will resolve theconstipation issue. No further questions at this time, states she will call back if she has any questions. Anny Daily APRN, CNP - 12/24/2013 2:37 PM CDT I received Lennie's CT scan results, and the findings were moderate amounts of stool in the colon, fatty liver (this is a common incidental finding), and a left ovarian cyst. If Lennie is having left lower abdominal pain, I would recommend following up with gynecology to discuss the left ovarian cyst and possible treatment options for this. If she is having generalized pain, this is most likely due to constipation. If she would like to discuss these results further with me, I would be happy to do so. documented in this encounter Plan of Treatment Not on filedocumented as of this encounter Visit Diagnoses Not on filedocumented in this encounter Care Teams Sub Master Relationship Specialty Start Date End Date Anny Daily APRN, CNP PCP - General 12/16/13 04/09/16 [address] [address] [place] [address] documented as of this encounter
--- OUTSIDE RECORDS SUMMARY | 2022-04-17 15:23 | XMS_ITS | Encounter Summary ---
:1980 Author Organization [facility] Address [address] [place] [address] Care Team Providers Name Role Phone Anny Daily APRN, CNP Primary Care Provider Encounter Details Date Type Department Care Team Description 01/02/2014 Notes/Orders [place] Anjana Chauhan, Screening for other [address] [facility] [place] [address] [address] endocrine, [address] nutritional, [place] [address] metabolic, and [phone] immunity disord ers (Work) (Primary Dx) Social History Tobacco Use Types Packs/Day Years Used Date Smoking Tobacco: Never Assessed Sex Assigned at Date Recorded Not on file documented as of this encounter Plan of Treatment Not on filedocumented as of this encounter Visit Diagnoses Diagnosis Screening for other and unspecified endo crine, nutritional, metabolic, and immunity disorders - Primary documented in this encounter Care Teams Film Color Tester Relationship Specialty Start Date End Date Anny Daily APRN, MATERIAL HANDLING CREW SUPERVISOR PCP - General 12/16/13 04/09/16 [address] [place] [address] documented as of this encounter
--- OUTSIDE RECORDS SUMMARY | 2022-04-17 15:23 | XMS_ITS | Encounter Summary ---
:1980 Author Organization [facility] Address [address] [address] Care Team Providers Name Role Phone Xuan Dickens APRN, IMANI Primary Care Provider [phone] Reason for Visit Reason Comments CONSULT Encounter Details Date Type Department Care Team Description 01/29/2013 Telephone [facility] Xuan Dickens AP RN, CONSULT Medicine BURRING MACHINE OPERATOR [address] [place], [place] [address] [address] [phone] [place], [place] [address] (Wo rk) Social History Tobacco Use Types Packs/Day Years Used Date Smoking Tobacco: Never Assessed Sex Assigned at Date Recorded Not on file documented as of this encounter Nursing Notes Isha Rooney CMA - 01/31/2013 9:07 AM CDT called pt and left msg on her Vm in regards to phone note addressed 01/31/13. UST Xuan Dickens APRN, IMANI - 01/30/2013 4:43 PM CDT I cannot refer patient outside of [facility]. It looks like she was seen by Orthopedics. If she wants a second opinion, a referral will need to be made by our Orthopedics dept. Please forward request to Julio Kuhn PA-C of Ortho, who saw pt last. Jocelyn Robin MA - 01/30/2013 11:12 AM CDT Will forward to address the request for the patient's orders for Right Hip Imaging ( or would the patient need to be seen first ) also will I need to call managed care ?? or can she have this done thruus Irene Martinez - 01/29/2013 4:38 PM CDT Referral/Consult Caller Name/Relationship: Primary Care Provider: Xuan Singh What referral is needed? Orthopedics, Right hip pain, orders for imaging, [facility], Dr. Jasbir Weldon. Please call Pt. Why is referral needed? Right hip pain Insurance Carrier: unk Member ID: unk Appointment already scheduled? no When/With whom/Where? unk What is needed from us? anytime Call back phone or cell phone: see note Best time to call back number: anytime Is it OK to leave a confidential message on this voicemail? yes *ECODEfn documented in this encounter Plan of Treatment Not on filedocumented as of this encounter Visit Diagnoses Not on filedocumented in this encounter Care Teams Flower Machine Operator Relationship Specialty Start Date End Date Xuan Dickens, LOCAL ANNOUNCER, BURRING MACHINE OPERATOR PCP - General 03/18/12 12/01/13 [address] [place] [address] documented as of this encounter
--- OUTSIDE RECORDS SUMMARY | 2022-04-17 15:23 | XMS_ITS | Encounter Summary ---
:1980 Author Organization [facility] Address [address] [place] [address] Care Team Providers Name Role Phone Anny Daily APRN, IMANI Primary Care Provider [phone] Encounter Details Date Type Department Care Team Description 01/05/2014 Lab Visit [facility] Screening for other and unsp ecified endocrine, nutritional, metabolic, and immunity disorders; [id number] Screening [place] [address] Social History Tobacco Use Types Packs/Day Years Used Date Smoking Tobacco: Never Assessed Sex Assigned at Date Recorded Not on file documented as of this encounter Plan of Treatment Not on filedocumented as of this encounter Procedures Procedure Name Priority Date/Time Associated Diagnosis Comme nts COMPLETE BLOOD Routine 01/05/2014 5:55 PM Screening for iron R esults for this COUNT-W/DIFF CDT deficiency anemia procedure are in the results section. COMP METABOLIC PANEL Routine 01/05/2014 5:55 PM Screening for other Results for this CDT and unspecified procedure ar e in endocrine, the results nutritional, section. metabolic, and immunity disorders DIFFERENTIAL Routine 01/05/2014 5:55 PM Results f or this CDT procedure are i n the results section. HGB A1C Routine 01/05/2014 5:55 PM Screening for other Re sults for this CDT and unspecified procedure ar e in endocrine, the results nutritional, section. metabolic, and immunity disorders INR/PROTIME Routine 01/05/2014 5:55 PM Screening for other Re sults for this CDT and unspecified procedure ar e in endocrine, the results nutritional, section. metabolic, and immunity disorders CALL LIST QUESTIONS Routine 01/05/2014 5:51 PM Screening for o ther Results for this CDT and unspecified procedure ar e in endocrine, the results nutritional, section. metabolic, and immunity disorde rs Screening for iron deficiency anemia documented in this encounter Results INR/Protime (01/05/2014 5:55 PM CDT) athologist Signature Prothrombin Time 13.3 11.8 - HP CONVERSION 14.0 INR 1.0 HP CONVERSION Comment: Recommendations for INR in warfarin ther apy: (Chest, Vol. 119, No. 1, Sep 2000, Suppl ement). Prevention and treatment of venous throm bosis; ? INR 2.0-3.0 Treatment of PE; Prevention of systemic embolism due to prosthetic tissue heart valves, b ileaflet mechanical valves in the aortic position , acute [place], valvular heart disease and atrial fibril lation. Mechanical prosthetic valves, (high risk ). ? INR 2.5-3.5 Prevention of recurrent myocardial infar ct. These recommended ranges serve as guidel erica. Adjustment outside these ranges may be c linically indicated. Specimen Anatomical Collection Method Collection Time Receive d Time (Source) Location / / Volume Laterality 01/05/2014 5:55 PM 4 5:55 CDT PM CDT Narrative HP CONVERSION - 01/05/2014 6:25 PM CDT Performed at [facility], [address] [place] [address] .Results faxed to [phone], 01/07/20 14,11:22, by [facility] Anjana Chauhan PA-C LAB_1 Performing Organization Address City/State/ZIP Code Phon e Number HP CONVERSION Differential (01/05/2014 5:55 PM CDT) athologist Signature Absolute 6.1 1.8 - 8.0 HP CONVERSION Neutrophils Absolute 2.7 1.1 - 4.0 HP CONVERSION Lymphocytes Absolute 0.6 0.2 - 0.8 HP CONVERSION Monocytes Absolute 0.3 0.0 - 0.5 HP CONVERSION Eosinophils Absolute 0.0 0.0 - 0.2 HP CONVERSION Basophils Specimen Anatomical Collection Method Collection Time Receive d Time (Source) Location / / Volume Laterality 01/05/2014 5:55 PM 4 5:55 CDT PM CDT Narrative HP CONVERSION - 01/05/2014 6:01 PM CDT Performed at [facility], [address] [place] [address] Anjana Chauhan PA-C LAB_1 Performing Organization Address City/State/ZIP Code Phon e Number HP CONVERSION Hgb A1c (01/05/2014 5:55 PM CDT) athologist Signature HGB A1C 5.5 4.0 - 5.6 % HP CONVERSION Specimen Anatomical Collection Method Collection Time Receive d Time (Source) Location / / Volume Laterality 01/05/2014 5:55 PM 4 9:37 CDT PM CDT Narrative HP CONVERSION - 01/06/2014 11:20 AM CDT .Results faxed to ,[phone], 01/07/20 14,11:22, by [facility] Anjana Chauhan PA-C LAB_1 Performing Organization Address City/State/ZIP Code Phon e Number HP CONVERSION (ABNORMAL) Complete Blood Count W/Diff (01/05/2014 5:55 PM CDT) [facility] gist Method Time Signature White Blood Cell 9.7 3.8 - HP CONVERSION Count 11.0 Red Blood Cell 4.17 3.70 - HP CONVERSION Count 5.20 Hemoglobin 10.6 (L) 11.8 - HP CONVERSION 15.5 g/dL Hematocrit 33.2 (L) 35.0 - HP CONVERSION 46.0 % Mean Corpuscular 79.7 (L) 80.0 - HP CONVERSION Volume 100.0 fL RDW 15.2 (H) 11.0 - HP CONVERSION 15.0 % Platelet Count 407 140 - 450 HP CONVERSION Specimen Anatomical Collection Method Collection Time Receive d Time (Source) Location / / Volume Laterality 01/05/2014 5:55 PM 4 5:55 CDT PM CDT Narrative HP CONVERSION - 01/05/2014 6:01 PM CDT Performed at [facility], [address] [place] [address] .Results faxed to [phone], 01/07/20 14,11:22, by [facility] Anjana Chauhan PA-C LAB_1 Performing Organization Address [facility] Code Phon e Number HP CONVERSION (ABNORMAL) Comp Metabolic Panel (01/05/2014 5:55 PM CDT) [facility] gist Method Time Signature Aspartate 69 (H) 0 - 45 HP CONVERSION Aminotransferase U/L Lab Glucose 98 60 - 100 HP CONVERSION mg/dL Bilirubin Total 0.2 0.2 - 1.2 HP CONVERSION mg/dL Calcium 9.5 8.5 - HP CONVERSION 10.5 mg/dL Sodium 139 137 - 147 HP CONVERSION Potassium 4.0 3.5 - 5.2 HP CONVERSION Blood Urea Nitrogen 13 5 - 26 HP CONVERS ION mg/dL Albumin 4.4 3.4 - 5.0 HP CONVERSION g/dL Chloride 103 98 - 110 HP CONVERSION Alk Phos 50 25 - 135 HP CONVERSION U/L Protein Total, Serum 7.8 5.7 - 8.3 HP CONVER UNRULY g/dL Creatinine Serum 0.7 0.4 - 1.3 HP CONVERSION mg/dL Est GFR Am >60 >60 HP CONVERSI ON Est GFR Non-Afr Am >60 >60 HP CONVERSI ON Comment: Normal>60, moderate decrease 30 - 59, se josi decrease 15 - 29, renal failure <15 mL/min/1.73 m2 NOTE: ??Choose the eGFR result above loida ropriate for the race of the patient. Alanine Aminotransferase 83 (H) 4 - 55 U/L HP C ONVERSION Bicarbonate 30 23 - 33 mmol/L HP CONVERSION Specimen Anatomical Collection Method Collection Time Receive d Time (Source) Location / / Volume Laterality 01/05/2014 5:55 PM 4 5:55 CDT PM CDT Narrative HP CONVERSION - 01/05/2014 6:33 PM CDT Performed at [facility], [address] [place] [address] .Results faxed to [phone], 01/07/20 14,11:22, by [facility] Anjana K Tien PA-C LAB_1 Performing Organization Address City/[facility]/ZIP Code Phon e Number HP CONVERSION CALL LIST QUESTIONS (01/05/2014 5:51 PM CDT) athologist Signature Call Back Done HP CONVERSION Documented Specimen Anatomical Collection Method Collection Time Receive d Time (Source) Location / / Volume Laterality 01/05/2014 5:51 PM 4 5:55 CDT PM CDT Narrative HP CONVERSION - 01/05/2014 5:51 PM CDT Performed at [facility], [address] [place] [address] .Results faxed to [phone], 01/07/20 14,11:22, by [facility] Anjana Chauhan PA-C LAB_1 Performing Organization Address City/[facility] Phon e Number HP CONVERSION documented in this encounter Visit Diagnoses Diagnosis Screening for other and unspecified endo crine, nutritional, metabolic, and immunity disorders Screening for iron deficiency anemia documented in this encounter Care Teams Continuous Drier Operator Relationship Specialty Start Date End Date Anny Daily, CRIMINAL JUSTICE PROFESSOR, MANAGER METAL PCP - General 12/16/13 04/09/[id number] [place] [address] [place] [address] documented as of this encounter
--- OUTSIDE RECORDS SUMMARY | 2022-04-17 15:23 | XMS_ITS | Encounter Summary ---
:1980 Author Organization [facility] Address [address] [place] [address] Care Team Providers Name Role Phone Loretta Washington MD Primary Care Provider Reason for Visit Reason Comments Questions Encounter Details Date Type Department Care Team Description 12/15/[address] Surgery Janis Ortega RN Questions [address] [facility] . [place], [place] [address] Social History Tobacco Use Types Packs/Day Years Used Date Smoking Tobacco: Never Assessed Sex Assigned at Date Recorded Not on file documented as of this encounter Nursing Notes Janis Ortega RN - 12/15/2013 9:57 AM CDT Pt left a message stating she had gallbladder removed in August (beg. of 2012, for cholelithiasis) and the last couple of days started have RUQ pain, radiating to the back today. She is worryingit could be a bile leak. She was feeling fell up till a couple of days ago. Per Dr. Rivera, it's 4 months out of surgery and there is no chance of bile leak. Per Dr. Rivera, LMfor pt to call back (will instruct to go to her cobol mainframe developer to possibly evaluate her liver). documented in this encounter Plan of Treatment Not on filedocumented as of this encounter Visit Diagnoses Not on filedocumented in this encounter Care Teams Clock And Watch Hands Painter Relationship Specialty Start Date End Date Loretta Washington MD PCP - General 12/02/13 12/15/13 [address] [place] [address] documented as of this encounter
--- OUTSIDE RECORDS SUMMARY | 2022-04-17 15:23 | XMS_ITS | Encounter Summary ---
:1980 Author Organization [facility] Address [address] [place] [address] Care Team Providers Name Role Phone Anny Daily Sven [place], HEALTH PROFESSIONAL Primary Care Provider [phone] Reason for Visit Reason Comments HIP PAIN Encounter Details Date Type Department Care Team Description 06/22/2015 Office Visit [facility] Julio Kuhn, Trochant nicolas bursitis of right hip (Primary Dx); CENTER PA-C Right hip pain [address] [facility] AM[place] [address] [place] [phone] (Wo rk) Social History Tobacco Use Types Packs/Day Years Used Date Smoking Tobacco: Never Assessed Sex Assigned at Date Recorded Not on file documented as of this encounter Last Filed Vital Signs Vital Sign Reading Time Taken Comments Blood Pressure - - Pulse - - Temperature - - Respiratory Rate - - Oxygen Saturation - - Inhaled Oxygen Concentration - - Weight 83.9 kg (185 lb) 06/22/2015 11:12 AM CDT Height 175.3 cm (5' 9) 06/22/2015 11:12 AM CDT Body Mass Index 27.32 06/22/2015 11:12 AM CDT documented in this encounter Progress Notes Julio Kuhn, COLLEEN - 06/22/2015 9:06 PM CDT [facility] Follow-Up 06/22/2015 Chief Complaint: Right hip pain History of Present Illness: 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 She was last seen by me on 10/08/2012. She continues to have anterolateral right hip pain as well as right groin pain when she sits for prolonged periods of time. She has had gastric bypass since she last saw me and has lost 170 pounds and is more active now. She has no numbness or tingling. Please refer to my note dated 10/08/12 for past medical history. Review of Systems: Positive for right hip pain. No history of other heart, lung, liver, GI, or renal diseases, cancers, diabetes mellitus, or arthritis. Physical Exam: General: The patient is in no acute distress. Neuro: Answers questions appropriately. right Hip: Skin is cool to touch without erythema, ecchymosis, or lesions. Point tenderness of the greater trochanter. Negative straight leg raise. Full range of motion of hip and ankle. Ligaments are stable. Calves are supple and non-tender. 2+ pedal pulses are noted bilaterally. All tendons are intact with 5/5 strength. This is compared bilaterally. Assessment: Diagnosis ICD-10-CM ICD-9-CM 1. Right hip pain M25.551 719.45 2. Trochanteric bursitis of right hip M70.61 726.5 Plan: I discussed with the patient, in detail, the different treatment options available to them includingconservative management (rest, ice, oral pain medication, and activity modification), physical therapy, and the risks and benefits of cortisone injection versus PT. At this time, the patient elects to t ry a course of physical therapy for range of motion and hip strengthening. She can follow up with cori 6 weeks if the pain does not improve. At that time she can try a steroid shot of the trochantericbursa. Scribe Disclosure: Duke Westrbook, am serving as a scribe to document services personally performed by Julio Kuhn PA-C at this visit, based upon the providers statements to me. All documentation has been reviewed by the aforementioned doctor prior to being entered into the official medical record. Entered on 06/22 at 6:47 AM. Julio Westbrook PA-C, attest that the above named individual is acting in scribe capacity, has observed my performance of the services performed at this visit and has documented them in accordance with my direction. Entered on 06/22/2015 at 6:47 AM. Julio Kuhn PA-C documented in this encounter Plan of Treatment Not on filedocumented as of this encounter Visit Diagnoses Diagnosis Trochanteric bursitis of right hip - Rosalinda compa Enthesopathy of hip region Right hip pain Pain in joint, pelvic region and thigh documented in this encounter Care Teams Page Makeup System Operator Relationship Specialty Start Date End Date Anny Daily APRN, HEALTH PROFESSIONAL PCP - General 12/16/13 04/09/16 [address] [place] [address] documented as of this encounter
--- OUTSIDE RECORDS SUMMARY | 2022-04-17 15:24 | XMS_ITS | Encounter Summary ---
:1980 Author Organization [facility] Address [address] [place] [address] Care Team Providers Name Role Phone Xuan Dickens APRN, HEAD START DIRECTOR Primary Care Provider [phone] Reason for Visit Reason Comments Follow-up Encounter Details Date Type Department Care Team Description 10/02/2012 Office Visit [facility] Kymberly Blanco [facility] pain CENTER COLLEEN (Primary Dx) [address] [facility] [address] [place] [address] [place], [place] [phone] (Wo rk) Social History Tobacco Use Types Packs/Day Years Used Date Smoking Tobacco: Never Assessed Sex Assigned at Date Recorded Not on file documented as of this encounter Patient Instructions Patient InstructionsMicki Wong RN - 10/02/2012 3:10 PM CST Kymberly Blanco PA-C Orthopaedic Spine Please contact Nurse triage for all medical questions at [phone] All Calls will be addressed in the afternoon during my office hours Mon., Wed., Sunday 7:30a to 7:00pm Please contact your Pharmacy for all medication refill requests-All medication refills will be addressed during my office hours as listed above. H COVERER documented in this encounter Progress Notes Kymberly Blanco PA-C - 10/02/2012 4:32 PM CST Progress Notes signed by Kymberly Blanco PA-C at 10/08/12909 Author: Kymberly Blanco PA-C Service: (none) Author Type: Physician Contract Clerk Automobile Filed: 10/08/12 0910 Note Time: 10/02/12 1632 Status: Signed Hairspring Truing Inspector: Kymberly Blanco PA-C (Physician Contract Clerk Automobile) NAME: LENNIE MOLINA VISIT: [id number] DICTATING CLINICIAN: KYMBERLY BLANCO PA-C JOB: [id number] Med JOB: [id number] LOC: 3711 CLINIC PROGRESS NOTE DATE OF VISIT: 10/02/2012 : 1980 SUBJECTIVE: This is a 32-year-old female I am seeing today in follow up having obtained an MRI of the lumbar spine as well as a CT scan. The patient suffers with right-sided low back pain and a few years ago underwent a right SI joint fusion by Dr. Julio Jones. She still is complaining of right-sided low back pain without radiculopathy and so we obtained a CT scan to determine whether she had solid bony fusion across the sacrum to the pelvis as well as an MRI of the lumbar spine to rule out any adjacent pathology. She states that she does have intermittent hip pain as well into the groin with difficulty with internal and external rotation. Imaging of the spine shows disk desiccation with Modic changes at the L5-S1 level with an annular bulge without central canal stenosis. At L4-5 she has a central and caudally-pointed disk herniation abutting the L5 nerve roots within the subarticular recess. Also noted is some facet joint fluid. L3-4 shows mild to moderate disk degeneration with a 2 mm central disk protrusion. CT of the pelvis shows a thread of fusion cage across the right SI joint with fusion and solid osseous bridging bone. The left is unremarkable. Incidentally noted is mild bilateral superior hip joint space narrowing with over coverage of the femoral heads possibly representing a pincer type impingement. PHYSICAL EXAM: Examination today is nonfocal. Neurological examination today is nonfocal. ASSESSMENT: Right-sided low back pain, rule out facet etiology. PLAN: Initially I ordered a right-sided L5-S1 facet injection but I think I would include the 4-5 facet joint as well. I would have her see my PA partner, Julio Kuhn, to determine whether the hip findings are of any significant importance. I will follow up with her after the injection. IM: 10/02/2012 05:11:32 pm MT: 3 H COVERER documented in this encounter Plan of Treatment Not on filedocumented as of this encounter Visit Diagnoses Diagnosis Low back pain - Primary documented in this encounter Care Teams Elevator Erector Helper Relationship Specialty Start Date End Date Xuan Dickens APRN, HEAD START DIRECTOR PCP - General 03/18/12 12/01/13 [address] [place] [address] documented as of this encounter
--- OUTSIDE RECORDS SUMMARY | 2022-04-17 15:24 | XMS_ITS | Encounter Summary ---
:1980 Author [facility] Address [address] [place] [address] Care Team Providers Name Role Phone Elizabeth Anderson MD Primary Care Provider Reason for Visit Reason Comments CONSULT Encounter Details Date Type Department Care Team Description 03/12/2012 Telephone [facility] Xuan Dickens AP RN, CONSULT Medicine ROLLED GOLD PLATER [address] [place], [place] [address] [phone] [place], [place] [address] (Wo rk) Social History Tobacco Use Types Packs/Day Years Used Date Smoking Tobacco: Never Assessed Sex Assigned at Date Recorded Not on file documented as of this encounter Nursing Notes Isha Rooney, [facility] - 03/13/2012 9:10 AM CDT Left msg for pt on VM in regards to GI consult appt. Appt was made for April 02 with Ro Wright.1:00 was made and pt is to check in @ 12:45. Instructed to park in the blue parking ramp [facility] and GI will be on 4th floor. Number was given if unable to make the time. documented in this encounter Plan of Treatment Not on filedocumented as of this encounter Visit Diagnoses Not on filedocumented in this encounter Care Teams Machine Filler Shredder Relationship Specialty Start Date End Date Elizabeth Anderson MD PCP - General 09/15/02 03/17/12 [address] [place] [address] documented as of this encounter
--- OUTSIDE RECORDS SUMMARY | 2022-04-17 15:24 | XMS_ITS | Encounter Summary ---
:1980 Author Organization [facility] Address [address] [place] [address] Care Team Providers Name Role Phone Elizabeth Anderson MD Primary Care Provider Encounter Details Date Type Department Care Team Description 03/14/2012 Lab Visit [facility] Elevated LFTs [address] [facility] . [place], [place] [address] Social History Tobacco Use Types Packs/Day Years Used Date Smoking Tobacco: Never Assessed Sex Assigned at Date Recorded Not on file documented as of this encounter Plan of Treatment Not on filedocumented as of this encounter Procedures Procedure Name Priority Date/Time Associated Comments Diagnosis APTT (ACTIVATED PARTIAL Routine 03/14/2012 3:26 PM Elevated LF Ts Results for this THROMBOPLASTIN TIME CDT procedur e are in the results section. ALBUMIN Routine 03/14/2012 3:26 PM Elevated LFTs Results for this CDT procedure are i n the results section. documented in this encounter Results APTT (Activated Partial Thromboplastin Time) (03/14/2012 3:26 PM CDT) [facility] gist Method Time Signature Partial 34.3 25.0 - HP CONVERSION Thromboplastin Time 38.0 sec Specimen Anatomical Collection Method Collection Time Receive d Time (Source) Location / / Volume Laterality 03/14/2012 3:26 PM 2 6:16 CDT PM CDT Xuan Dickens ANIMAL CARE GIVER, [facility]_1 Performing Organization Address City/State/ZIP Code Phon e Number HP CONVERSION Albumin (03/14/2012 3:26 PM CDT) P athologist Signature Albumin 4.5 3.4 - 5.0 HP CONVERSION g/dL Specimen Anatomical Collection Method Collection Time Receive d Time (Source) Location / / Volume Laterality 03/14/2012 3:26 PM 2 6:24 CDT PM CDT Xuan Dickens ANIMAL CARE GIVER, [facility]_1 Performing Organization Address City/State/ZIP Code Phon e Number HP CONVERSION documented in this encounter Visit Diagnoses Diagnosis Elevated LFTs Other abnormal blood chemistry documented in this encounter Care Teams Human Factors Specialist Relationship Specialty Start Date End Date Elizabeth Anderson MD PCP - General 09/15/02 03/17/12 [address] [place] [address] documented as of this encounter
--- OUTSIDE RECORDS SUMMARY | 2022-04-17 15:24 | XMS_ITS | Encounter Summary ---
:1980 Author Organization [facility] Address [address] [place] [address] Care Team Providers Name Role Phone Xuan Dickens APRN, IMANI Primary Care Provider [phone] Reason for Visit Reason Comments Ultrasound Results Encounter Details Date Type Department Care Team Description 03/23/2012 Telephone [facility] Xuan Dickens Ul trasound Results Medicine EVENT CREW TECHNICIAN, IMANI [address] [place], [place] [address] [phone] [place], [place] [address] (Wo rk) Social History Tobacco Use Types Packs/Day Years Used Date Smoking Tobacco: Never Assessed Sex Assigned at Date Recorded Not on file documented as of this encounter Nursing Notes Isha Rooney, JUNIOR LINUX ADMINISTRATOR - 03/25/2012 9:42 AM CDT called pt and left msg on VM in regards to Xuan's recent phone note and phone number to LIBRARY CLERK TALKING BOOKS deptwas given so she can schedule that appointment. documented in this encounter Plan of Treatment Not on filedocumented as of this encounter Visit Diagnoses Diagnosis Irregular menstruation Irregular menstrual cycle documented in this encounter Care Teams Varnish Finisher Relationship Specialty Start Date End Date Xuan Dickens APRN, HOGSHEAD STOCK CLERK PCP - General 03/18/12 12/01/13 [address] [place] [address] documented as of this encounter
--- OUTSIDE RECORDS SUMMARY | 2022-04-17 15:24 | XMS_ITS | Encounter Summary ---
:1980 Author Organization [facility] Address [address] [place] [address] Care Team Providers Name Role Phone Xuan Dickens APRN, IMANI Primary Care Provider [phone] Reason for Visit Reason Comments Provider Orders Encounter Details Date Type Department Care Team Description 03/18/2012 Telephone [facility] Xuan Dickens, Joana ovider Orders Medicine MAGNETIC HEALERIMANI Jackson [address] [place], [place] [address] [phone] [place], [place] [address] (Wo rk) Social History Tobacco Use Types Packs/Day Years Used Date Smoking Tobacco: Never Assessed Sex Assigned at Date Recorded Not on file documented as of this encounter Nursing Notes Isha Rooney CMA - 03/19/2012 3:55 PM CDT called pt and informed her of her pelvic US in which will be [facility] at [facility] on 03/22/12, pt was given instructions of the exam and is to check in at 1:00 for a 1:15 US. Xuan Dickens, IMANI [place] - 03/19/2012 3:19 PM CDT Please assist Lennie with scheduling a pelvic US for irregular menses. Thank you, Xuan Lottie Haque Delroy - 03/18/2012 5:01 PM CDT Lab/Radiology Requests Primary Care Provider: KIMBER Modi What test is needed and when? US of the pelvis Why is test needed/requested? abnormal menses - Pt states she was seen for this by Francisco and would like to go ahead and schedule this US at this time, please assist. documented in this encounter Plan of Treatment Not on filedocumented as of this encounter Visit Diagnoses Not on filedocumented in this encounter Care Teams Staff Research Associate Relationship Specialty Start Date End Date Xuan Dickens APRN, WIRE ANNEALER PCP - General 03/18/12 12/01/13 [address] [place] [address] documented as of this encounter
--- OUTSIDE RECORDS SUMMARY | 2022-04-17 15:24 | XMS_ITS | Encounter Summary ---
:1980 Author Organization [facility] Address [address] [place] [address] Care Team Providers Name Role Phone Xuan Dickens APRN, INSTRUCTOR DECORATING Primary Care Provider [phone] Reason for Visit Reason Comments Refill Encounter Details Date Type Department Care Team Description 04/23/2012 Refill [facility] Xuan Dickens APRN, Refill [address] INSTRUCTOR DECORATING [place], [place] [address] [address] [facility] [phone] [place], [place] [address] (Wo rk) Social History Tobacco Use Types Packs/Day Years Used Date Smoking Tobacco: Never Assessed Sex Assigned at Date Recorded Not on file documented as of this encounter Nursing Notes Karin Ulloa RN - 04/24/2012 1:43 PM CDT DOES NOT MEET REQUIREMENTS FOR REFILL Patient last seen: 03/08/12 Reason: Medication was started on 03/01/12 and patient was given 60 tabs and 0 refills. Please adviseon further refills. Thanks. Prescription Refills Pending Prescriptions Disp Refills ??? pantoprazole (PROTONIX) 40 mg tablet [Pharmacy Med Name: PANTOPRAZOLE SOD DR 40 MG TAB] 180 tablet 0 Sig: Take 1 tablet by mouth 2 times daily. documented in this encounter Plan of Treatment Not on filedocumented as of this encounter Visit Diagnoses Not on filedocumented in this encounter Care Teams Dry Wall Installer Relationship Specialty Start Date End Date Xuan Dickens APRN, INSTRUCTOR DECORATING PCP - General 03/18/12 12/01/13 [address] [place] [address] documented as of this encounter
--- OUTSIDE RECORDS SUMMARY | 2022-04-17 15:24 | XMS_ITS | Encounter Summary ---
:1980 Author Organization [facility] Address [address] [place] [address] Care Team Providers Name Role Phone Elizabeth Anderson MD Primary Care Provider Reason for Visit Reason Comments Questions Encounter Details Date Type Department Care Team Description 03/07/2012 Telephone [facility] Xuan Dickens AP RN, Questions Medicine GENERATOR MECHANIC [address] [place], [place] [address] [phone] [place], [place] [address] (Wo rk) Social History Tobacco Use Types Packs/Day Years Used Date Smoking Tobacco: Never Assessed Sex Assigned at Date Recorded Not on file documented as of this encounter Nursing Notes Taz Rothman LPN - 03/07/2012 11:28 AM CDT spoke with pt and given below info UST Xuan Dickens APRN, CNP - 03/07/2012 11:25 AM CDT This should be fine. Thank you, Xuan. Taz Jim LPN - 03/07/2012 9:15 AM CDT Pt calling had to move US to tomorrow morning. Pt wondering if there will be time in between the US at 830 and her appointment at 1pm to get the results or should she move 1 pm appt to next week. Please advise thanks Deepika Burnham - 03/07/2012 8:45 AM CDT Pt has question's regarding ultrasound. Pt states she needed to reschedule ultrasound for tomorrow. documented in this encounter Plan of Treatment Not on filedocumented as of this encounter Visit Diagnoses Not on filedocumented in this encounter Care Teams Gold Assayer Relationship Specialty Start Date End Date Elizabeth Anderson MD PCP - General 09/15/02 03/17/[address] [place] [address] documented as of this encounter
--- OUTSIDE RECORDS SUMMARY | 2022-04-17 15:24 | XMS_ITS | Encounter Summary ---
:1980 Author Organization [facility] Address [address] [place] [address] Care Team Providers Name Role Phone Xuan Dickens APRN, CNP Primary Care Provider [phone] Encounter Details Date Type Department Care Team Description 03/19/2012 Notes/Orders [facility] Xuan Dickens Ir regular menses Medicine IMANI [place] (Primary Dx) [address] [facility] [address] [place], [place] [address] [phone] [place] [address] Social History Tobacco Use Types Packs/Day Years Used Date Smoking Tobacco: Never Assessed Sex Assigned at Date Recorded Not on file documented as of this encounter Plan of Treatment Not on filedocumented as of this encounter Procedures Procedure Name Priority Date/Time Associated Diagnosis Comme nts US PELVIC COMPLETE Routine 03/22/2012 1:42 PM Irregular menses Results for this W EV CDT procedure are i n the results section. documented in this encounter Results US Pelvic Complete W EV (03/22/2012 1:42 PM CDT) Anatomical Region Laterality Modality Pelvis Other Specimen (Source) Anatomical Location Collection Method / Collectio n Time Received Time / Laterality Volume Impressions 03/22/2012 1:50 PM CDT IMPRESSION: Essentially negative study. Narrative 03/22/2012 1:50 PM CDT No comparison. Transabdominal and transvaginal study pe rformed. The uterus is normal and measures 8.3 cm sagittally. The endometrium is normal and measures 1 1 mm in thickness. ??No focal abnormality seen. Trace amount of free fluid in the low po sterior cul-de-sac. The adnexa were scanned in both ovaries seen with intact blood flow. ?? Normal follicles are present as well as a dominant follicle/benign cyst of the left ovary measuring 3.1 cm. ?? Procedure Note Raghu Hodges MD - 02/19/2016Formatti ng of this note might be different from the original. No comparison. Transabdominal and transvaginal study pe rformed. The uterus is normal and measures 8.3 cm sagittally. The endometrium is normal and measures 1 1 mm in thickness. No focal abnormality seen. Trace amount of free fluid in the low po sterior cul-de-sac. The adnexa were scanned in both ovaries seen with intact blood flow. Normal follicles are present as well as a dominant follicle/benign cyst of the left ovary measuring 3.1 cm. IMPRESSION IMPRESSION: Essentially negative study. Xuan Dickens APRN, CNP [facility] US documented in this encounter Visit Diagnoses Diagnosis Irregular menses - Primary Irregular menstrual cycle documented in this encounter Care Teams Carbon Grinder Relationship Specialty Start Date End Date Xuan Dickens APRN, SENIOR ENGINEERING TECH PCP - General 03/18/12 12/01/13 [address] [place] [address] documented as of this encounter
--- OUTSIDE RECORDS SUMMARY | 2022-04-17 15:24 | XMS_ITS | Encounter Summary ---
:1980 Author Organization [facility] Address [address] [place] [address] Care Team Providers Name Role Phone Elizabeth Anderson MD Primary Care Provider Encounter Details Date Type Department Care Team Description 03/08/2012 Imaging [facility] [address] [facility] [place], [place] [address] Social History Tobacco Use Types Packs/Day Years Used Date Smoking Tobacco: Never Assessed Sex Assigned at Date Recorded Not on file documented as of this encounter Plan of Treatment Not on filedocumented as of this encounter Visit Diagnoses Not on filedocumented in this encounter Care Teams Care Professional Relationship Specialty Start Date End Date Elizabeth Anderson MD PCP - General 09/15/02 03/17/12 [address] [place] [address] documented as of this encounter
--- OUTSIDE RECORDS SUMMARY | 2022-04-17 15:24 | XMS_ITS | Encounter Summary ---
:1980 Author Organization [facility] Address [address] [place] [address] Care Team Providers Name Role Phone Elizabeth Anderson MD Primary Care Provider Reason for Visit Reason Comments LAB RESULTS Encounter Details Date Type Department Care Team Description 03/04/2012 Telephone [facility] Xuan Dickens AP RN, LAB RESULTS Medicine [facility] [address] [place], [place] [address] [phone] [place], [place] [address] (Wo rk) Social History Tobacco Use Types Packs/Day Years Used Date Smoking Tobacco: Never Assessed Sex Assigned at Date Recorded Not on file documented as of this encounter Nursing Notes Isha Rooney, PMO PROJECT MANAGER - 03/04/2012 2:53 PM CDT was able to contact pt and get her scheduled for her abdominal US, it is scheduled for this Sunday at the [facility] radiology for 8:30 a.m. check in time of 8:15, went over the preparation for this exam with the patient. documented in this encounter Plan of Treatment Not on filedocumented as of this encounter Procedures Procedure Name Priority Date/Time Associated Diagnosis Comme nts US ABD RUQ ORGANS Routine 03/08/2012 8:46 AM Nonspecific eleva tion Results for this CDT of levels of procedure are i n transaminase or lactic the r esults acid dehydrogenase section. (LDH) documented in this encounter Results US Abd RUQ Organs (03/08/2012 8:46 AM CDT) Anatomical Region Laterality Modality Abdomen Other Specimen (Source) Anatomical Location Collection Method / Collectio n Time Received Time / Laterality Volume Narrative 03/08/2012 8:53 AM CDT The gallbladder contains echogenic mater ial in its dependent portion with shadowing posteriorly consistent wi th small gallstones and probable sludge. ??No other abnormality of the gallbladder is seen. ?? The common bile duct is within normal li mits in size and there are no gallstones and within the visualized filemon t. ??There is no evidence for dilatation of intrahepatic bile ducts. ? ?No other abnormality of the liver, right kidney and pancreas is seen . ?? CONCLUSION: Small gallstones and probabl e sludge within the gallbladder. Procedure Note Pradip Rios MD - 02/19/2016Form atting of this note might be different from the original. The gallbladder contains echogenic mater ial in its dependent portion with shadowing posteriorly consistent wi th small gallstones and probable sludge. No other abnormality of the gallbladder is seen. The common bile duct is within normal li mits in size and there are no gallstones and within the visualized filemon t. There is no evidence for dilatation of intrahepatic bile ducts. N o other abnormality of the liver, right kidney and pancreas is seen . CONCLUSION: Small gallstones and probabl e sludge within the gallbladder. Xuan Dickens MORTAR MAN, GARDEN WORKER RAD US documented in this encounter Visit Diagnoses Diagnosis Elevated liver enzymes - Primary Nonspecific elevation of levels of trans aminase or lactic acid dehydrogenase (LDH) documented in this encounter Care Teams Web Content Developer Relationship Specialty Start Date End Date Elizabeth Anderson MD PCP - General 09/15/02 03/17/12 [address] [place] [id number] documented as of this encounter
--- OUTSIDE RECORDS SUMMARY | 2022-04-17 15:24 | XMS_ITS | Encounter Summary ---
:1980 Author Organization [facility] Address [address] [place] [address] Care Team Providers Name Role Phone Xuan Dickens MULTIMEDIA ARTIST, CARTOGRAPHIC DRAFTER Primary Care Provider Reason for Visit Reason Comments Medication Questions Encounter Details Date Type Department Care Team Description 04/25/2012 Telephone [facility] Xuan Dickens, [place] dication Questions Medicine MULTIMEDIA ARTIST, CARTOGRAPHIC DRAFTER [address] [place], [place] [address] [phone] [place], [place] [address] (Wo rk) Social History Tobacco Use Types Packs/Day Years Used Date Smoking Tobacco: Never Assessed Sex Assigned at Date Recorded Not on file documented as of this encounter Nursing Notes Radha Tejeda RN - 04/25/2012 3:08 PM CDT She is calling to inquire if RX for Zantac has been sent to the pharmacy for her or if she should buy over the counter. Informed pt. Rx has been sent to clinic pharmacy. Whitney Joseph - 04/25/2012 2:45 PM CDT Pt is calling regarding medication for ranitidine, request to speak with a nurse. Transferred to triage nurse. Pt can be reached at [phone] vm yes documented in this encounter Plan of Treatment Not on filedocumented as of this encounter Visit Diagnoses Not on filedocumented in this encounter Care Teams Active Directory Specialist Relationship Specialty Start Date End Date Xuan Dickens APRN, CARTOGRAPHIC DRAFTER PCP - General 03/18/12 12/01/13 [address] [place] [address] documented as of this encounter
--- OUTSIDE RECORDS SUMMARY | 2022-04-17 15:24 | XMS_ITS | Encounter Summary ---
:1980 Author Organization [facility] Address [address] [place] [address] Care Team Providers Name Role Phone Elizabeth Anderson MD Primary Care Provider Reason for Visit Reason Comments Abdominal Pain Encounter Details Date Type Department Care Team Description 03/01/2012 Office Visit [facility] Xuan Dickens GE RD (gastroesophageal reflux disease) (Primary Dx); Medicine [facility] [place] Abdominal bloating; [address] [facility] I; [facility] [place] [address] [phone] Social History Tobacco Use Types Packs/Day Years Used Date Smoking Tobacco: Never Assessed Sex Assigned at Date Recorded Not on file documented as of this encounter Last Filed Vital Signs Vital Sign Reading Time Taken Comments Blood Pressure 121/83 03/01/2012 3:17 PM CDT Pulse - - Temperature 37.3 ??C (99.1 ??F) 03/01/2012 3:17 PM CDT Respiratory Rate - - Oxygen Saturation - - Inhaled Oxygen Concentration - - Weight 150.6 kg (332 lb) 03/01/2012 3:17 PM CDT Height - - Body Mass Index 48.32 02/23/2011 3:14 PM CDT documented in this encounter Progress Notes Xuan Dickens, ASHU, IMANI - 03/01/2012 6:37 PM CDT Subjective: Patient ID: Lennie Sal is a 31 y.o. year old female Chief Complaint: Abdominal Pain HPI This is a 31-year-old female who presents for evaluation of abdominal discomfort. This is an ongoingissue for about 10 years. She has intermittent abdominal pressure, bloating, and cramping that lastsfor several days about once every 4-6 months. She chose to come in today because symptoms are getting worse. She describes it as a swelling, pressure, or burning sensation located under the bilateral ribs and sternum. Symptoms are directly related to certain foods and occur after drinking alcohol heavily, drinking coffee, or eating ice cream. At one point she stopped eating dairy, this helped. Layingon her left side helps. Taking Pepto-Bismol helps as well. Denies shortness of breath, palpitations,or chest pain. Denies nausea or vomiting. No changes in bowel habits. Denies hematochezia or melena.When the pain becomes very severe she experiences some diaphoresis and dizziness. Symptoms are unrelated to activity. The only correlation is with certain types of food. She has a history of self diagnosed heartburn, has never been evaluated by a clinician for this. Daily symptoms include a dull epigastric burning, belching and , and the sensation of acid reflux. She normally takes [id number] Prilosec 20 mg but ran out of the medication several weeks ago. Incidentally, the current episode of abdominal pain flared up shortly after stopping Prilosec. Family history negative for disease of the colon. Additionally, she voices concerns of a URI. Her boyfriend was sick recently and she developed symptoms shortly thereafter. 2 days ago developed pressure in the sinuses. Also endorses an itchy throat , itchy ears and nasal congestion. This morning she noticed a lump on the right side of her neck. She feels feverish. Today her temperature is 99.2. Past Medical History Patient Active Problem List Diagnoses Code ??? Pain Low Back 724.2 ??? DJD (degenerative joint disease) 715.90AJ ??? Borderline personality disorder 301.83 ??? Depression 311L ??? Anemia 285.9AA Medications Ferrous Fumarate-Vitamin C (VITRON-C) 200 mg (66 mg iron)-125 mg Tab norethindrone-ethinyl estradiol (LOESTRIN FE 09/22, ,) 1-20 mg-mcg per tablet traMADol (ULTRAM) 50 mg tablet Allergies Review of patient's allergies indicates no known allergies. Social History Tobacco: Denies Alcohol: Yes Review of Systems Pertinent items are noted in HPI. Objective: Physical Exam BP 121/83 Temp(Src) 37.3 ??C (99.2 ??F) (Oral) Wt 150.594 kg (332 lb) General: Alert and oriented morbildy obese female in no acute distress Head: Normocephalic, atruamatic Eyes: PERRLA, EOMs intact, no conjunctival injection Ears: Normal external ear and canal, normal TM's Nose: Nasal mucosa pink and moist Throat: Oropharynx without lesions or exudate, small firm 0.5 cm posterior cervical lymph node Lungs: Clear to auscultation bilaterally Heart: RRR, nomal S1 S2, no clicks, rubs, gallop, or murmur Abdomen: Obese, limiting exam. Bowel sounds present throughout. No hepatomegaly or splenomegaly. No masses. Non-tender to palpation without guarding or rebound. Extremities: No edema Skin: No rashes or lesions. No jaundice or scleral icterus. Assessment: 1. GERD (gastroesophageal reflux disease) (530.81S) pantoprazole (PROTONIX) 40 mg tablet, DISCONTINUED: pantoprazole (PROTONIX) 40 mg tablet 2. Abdominal bloating (787.3X) Helicobacter Pylori IGG, Complete Blood Count-No Diff, Thyroid Stimulating Hormone, Aspartate Aminotransferase, Alanine Aminotransferase, Alkaline Phosphatase Bl, Bilirubin Total & Direct, Lipase, Lab Celiac Panel, simethicone (MYLICON) 125 mg chewable tablet, DISCONTINUED: simethicone (MYLICON) 125 mg chewable tablet 3. Viral URI (465.9W) 4. Cervical lymphadenopathy (785.6CV) Plan: 1). GERD- Initiate trial of Protonix 40 mg BID x 2 months. 2). Abdominal pain and bloating- Likely exacerbation of GERD and gas. Directly related to certain foods. I recommend she avoid irritating foods groups including dairy products and lactose. I did provide a prescription for simethicone 125 mg as needed. Abdominal exam is completely normal. Reassured patient of no concerning findings. Obtain H. pylori IgG, CBC, TSH, AST, ALT, alk phos, bilirubin, lipase, celiac panel. If symptoms persist despite current interventions and lab tests are normal I will consider a right upper quadrant ultrasound. 3). Viral URI- Recommend symptomatic treatment including rest, liberal fluid intake, NSAIDs for painrelief, gargling with warm salt water. Reassured patient that lymph node enlargement is likely the result of the URI. documented in this encounter Plan of Treatment Not on filedocumented as of this encounter Visit Diagnoses Diagnosis GERD (gastroesophageal reflux disease) - Primary Esophageal reflux Abdominal bloating Flatulence, eructation, and gas pain Viral URI Acute upper respiratory infections of un specified site Cervical lymphadenopathy Enlargement of lymph nodes documented in this encounter Care Teams Record Center Coordinator Relationship Specialty Start Date End Date Elizabeth Anderson MD PCP - General 09/15/02 03/17/12 [address] [place] [address] documented as of this encounter
--- OUTSIDE RECORDS SUMMARY | 2022-04-17 15:24 | XMS_ITS | Encounter Summary ---
:1980 Author Organization [facility] Address [address] [place] [address] Care Team Providers Name Role Phone Elizabeth Anderson MD Primary Care Provider Reason for Visit Reason Comments Follow-up Encounter Details Date Type Department Care Team Description 03/08/2012 Office Visit [facility] Xuan Dickens, Donnie evated liver enzymes (Primary Dx); Medicine CHIEF II DISPATCHER, DIE TRIMMER Abdominal bloating; [address] Abdominal cramping; [place], [place] [address] Cholelithiasis; [phone] [place], [place] Anemia [address] Social History Tobacco Use Types Packs/Day Years Used Date Smoking Tobacco: Never Assessed Sex Assigned at Date Recorded Not on file documented as of this encounter Last Filed Vital Signs Vital Sign Reading Time Taken Comments Blood Pressure 124/71 03/08/2012 1:07 PM CDT Pulse 75 03/08/2012 1:07 PM CDT Temperature - - Respiratory Rate - - Oxygen Saturation - - Inhaled Oxygen Concentration - - Weight 150.6 kg (332 lb) 03/08/2012 1:07 PM CDT Height - - Body Mass Index 48.32 02/23/2011 3:14 PM CDT documented in this encounter Patient Instructions Patient InstructionsIsha Rooeny, IDENTIFICATION OFFICER - 03/08/2012 1:46 PM CDT Please call General Surgery to schedule an appointment @ [phone] documented in this encounter Progress Notes Xuan Dickens, ASHU, IMANI - 03/08/2012 6:26 PM CDT Addended by: XUAN ALVAREZ on: 03/08/2012 Modules accepted: Level of Service Xuan Dickens APRN, IMANI - 03/08/2012 6:26 PM CDT Subjective: Patient ID: Lennie Sal is a 31 y.o. year old female Chief Complaint: Follow-up elevated liver enzymes HPI This is a 31-year-old female who presents for follow-up evaluation of elevated liver enzymes. She was initially evaluated last week with concerns of chronic abdominal discomfort and bloating for 10 years (please refer to my note dated 03/01 for additional details). She has intermittent abdominal pressure, cramping, and bloating that comes about once every 4-6 months and lasts for several days. There is a swelling pressure located under the sternum and bilateral ribs. Symptoms are directly related to consuming certain foods, including coffee, ice cream, and alcohol. Denies constipation or diarrhea. No changes in bowel habits. No nausea or vomiting. The following lab tests were normal: TSH 1.51, bilirubin total 0.4, bilirubin direct 0.2, lipase 28, tissue transglutaminase antibody IgA 6, H. pylori IgG negative. The following LFTs were elevated: AST 272, ALT 364, alk phos 171. A right upper quadrantabdominal ultrasound revealed amall gallstones and probable sludge within the gallbladder, no evidence for dilatation of intrahepatic bile ducts. Omeprazole 40 mg was initiated at last visit for suspected GERD. She currently endorses abdominal pressure and bloating. No acute abdominal pain. No nausea, vomiting, or diarrhea. No fevers or chills. No yellowing of the skin or eyes. She drinks alcohol 1-2 times per month, about 3 or 4 drinks per occasion. Drinks are usually mixed drinks with hard alcohol. She recently returned from vacation to [place] and states that she had some diarrhea during vacation. Mercedes grandmother of liver disease, but otherwise no family history of liver disease or cirrhosis. The patient was also found to have normocytic anemia, hemoglobin 11 , MCV 81.3. Her menses are irregular, have been since initiation of menstrual cycle. Very heavy flow lasting anywhere from 1 week to 1.5 months. Her LMP was at the beginning of last month. Denies shortness of breath, palpitations , dizziness, lightheadedness, or headache. Past Medical History Patient Active Problem List Diagnoses Code ??? Pain Low Back 724.2 ??? DJD (degenerative joint disease) 715.90AJ ??? Borderline personality disorder 301.83 ??? Depression 311L ??? Anemia 285.9AA Medications Ferrous Fumarate-Vitamin C (VITRON-C) 200 mg (66 mg iron)-125 mg Tab norethindrone-ethinyl estradiol (LOESTRIN FE 09/22, ,) 1-20 mg-mcg per tablet pantoprazole (PROTONIX) 40 mg tablet simethicone (MYLICON) 125 mg chewable tablet traMADol (ULTRAM) 50 mg tablet Allergies Review of patient's allergies indicates no known allergies. Social History Tobacco: Denies Alcohol: 3-4 drinks 1-2 times per month Review of Systems Pertinent items are noted in HPI. Objective: Physical Exam BP 124/71 Pulse 75 Wt 150.594 kg (332 lb) General: Alert and oriented non-toxic appearing female in no acute distress HEENT: Normocephalic, atruamatic, PERRLA, EOMs intact, oropharynx without lesions or exudate, no adenopathy Lungs: Clear to auscultation bilaterally Heart: RRR, nomal S1 S2, no murmur Abdomen: Obese, limiting exam. Bowel sounds present throughout. No hepatomegaly or splenomegaly. No masses. Generalized tenderness throughout all quadrants with palpation. Extremities: Normal capillary refill, no edema. Skin: No rashes or lesions. No palmar erythema. Assessment: 1. Elevated liver enzymes (790.4M) GGT, Hepatitis A Panel, Total + Igm Abys, Hepatitis B Surf Vita, Hepatitis B Surf Ag, Hepatitis C Virus Vita In-House, Iron Binding Capacity (Incl Iron), Ferritin, Copper, Serum 2. Abdominal bloating (787.3X) 3. Abdominal cramping (789.00BM) 4. Cholelithiasis (574.20D) Ambulatory referral to General Surgery 5. Anemia (285.9AA) Plan: 1). Elevated Liver Enzymes- Obtain GGT, hepatitis a panel, hepatitis B antibody, hepatitis B surfaceantigen, hepatitis C antibody , iron binding capacity, ferritin, copper. Denies excessive alcohol use. Recent travel with URI symptoms suggest the possibility of Hepatitis. Right upper quadrant US doesnot show cirrhosis. There is no blockage of the bile ducts, therefore I do not believe the elevated transaminases are as a result of a gallbladder issue. I will notify the patient of lab results . 2). Cholelithiasis- General surgery consult. 3). Anemia- Obtain CBC, TIBC, ferritin. TT 25 minutes, 20 of which were spent discussing possible etiology of elevated liver transaminases, diagnosis, and possible treatment options. documented in this encounter Plan of Treatment Not on filedocumented as of this encounter Visit Diagnoses Diagnosis Elevated liver enzymes - Primary Nonspecific elevation of levels of trans aminase or lactic acid dehydrogenase (LDH) Abdominal bloating Flatulence, eructation, and gas pain Abdominal cramping Abdominal pain, unspecified site Cholelithiasis Calculus of gallbladder without mention of cholecystitis or obstruction Anemia Anemia, unspecified documented in this encounter Care Teams Lobby Attendant Relationship Specialty Start Date End Date Elizabeth Anderson MD PCP - General 09/15/02 03/17/[address] [place] [address] [place] [address] documented as of this encounter
--- OUTSIDE RECORDS SUMMARY | 2022-04-17 15:24 | XMS_ITS | Encounter Summary ---
:1980 Author Organization [facility] Address [address] [place] [address] Care Team Providers Name Role Phone Elizabeth Anderson MD Primary Care Provider Reason for Visit Reason Comments LAB RESULTS Encounter Details Date Type Department Care Team Description 03/12/2012 Telephone [facility] Xuan Dickens AP RN, LAB RESULTS Medicine [facility] [address] [place], [place] [address] [phone] [place], [place] [address] (Wo rk) Social History Tobacco Use Types Packs/Day Years Used Date Smoking Tobacco: Never Assessed Sex Assigned at Date Recorded Not on file documented as of this encounter Plan of Treatment Not on filedocumented as of this encounter Visit Diagnoses Diagnosis Elevated LFTs Other abnormal blood chemistry Iron deficiency anemia Iron deficiency anemia, unspecified documented in this encounter Care Teams Manager Ct Relationship Specialty Start Date End Date Elizabeth Anderson MD PCP - General 09/15/02 03/17/12 [address] [place] [address] documented as of this encounter
--- OUTSIDE RECORDS SUMMARY | 2022-04-17 15:24 | XMS_ITS | Encounter Summary ---
:1980 Author Organization [facility] Address [address] [place] [address] Care Team Providers Name Role Phone Elizabeth Anderson MD Primary Care Provider Encounter Details Date Type Department Care Team Description 03/08/2012 Lab Visit [facility] Elevated liver enzymes [address] [place], [place] [address] Social History Tobacco Use Types Packs/Day Years Used Date Smoking Tobacco: Never Assessed Sex Assigned at Date Recorded Not on file documented as of this encounter Plan of Treatment Not on filedocumented as of this encounter Procedures Procedure Name Priority Date/Time Associated Diagnosis Comme nts IRON BINDING Routine 03/08/2012 2:24 PM Elevated liver Results for this CAPACITY (INCL CDT enzymes procedure are in IRON) the results section. COPPER, SERUM Routine 03/08/2012 2:24 PM Elevated liver Result s for this CDT enzymes procedure are i n the results section. HEPATITIS A PANEL, Routine 03/08/2012 2:24 PM Elevated liver R esults for this TOTAL + IGM ABYS CDT enzymes procedure a re in the results section. HEPATITIS B SURFACE Routine 03/08/2012 2:24 PM Elevated liver Results for this ANTIBODY CDT enzymes procedure are i n the results section. HEP B SURFACE Routine 03/08/2012 2:24 PM Elevated liver Result s for this ANTIGEN, NO REFLEX CDT enzymes procedure are in the results section. HEPATITIS C Routine 03/08/2012 2:24 PM Elevated liver Results for this ANTIBODY, WITH CDT enzymes procedure are in REFLEX the results section. GT (GAMMA GT) Routine 03/08/2012 2:24 PM Elevated liver Result s for this CDT enzymes procedure are i n the results section. FERRITIN Routine 03/08/2012 2:24 PM Elevated liver Results for this CDT enzymes procedure are i n the results section. documented in this encounter Results COPPER, SERUM (03/08/2012 2:24 PM CDT) athologist Signature Copper, Serum 150 80 - 155 HP CONVERSION ug/dL Comment: Serum copper may be elevated with infect ion, inflammation, stress, and copper supplementation. In f emales, elevated copper may also be caused by oral contra ceptives and (concentrations may be elevate d up to 3 times normal during the third trimester). Seru m copper may be reduced by use of corticosteroids and zi nc and by malnutrition or malabsorption. Specimen Anatomical Collection Method Collection Time Receive d Time (Source) Location / / Volume Laterality 03/08/2012 2:24 PM 2 6:14 CDT PM CDT Narrative HP CONVERSION - 03/12/2012 4:49 PM CDT Performed at [facility] [address] [place] [id number] Xuan Dickens APRN, CNP LAB_1 Performing Organization Address City/[facility] Code Phon e Number HP CONVERSION Ferritin (03/08/2012 2:24 PM CDT) athologist Signature Ferritin Serum 11 10 - 291 HP CONVERSION ng/mL Specimen Anatomical Collection Method Collection Time Receive d Time (Source) Location / / Volume Laterality 03/08/2012 2:24 PM 2 6:29 CDT PM CDT Xuan Dickens APRN, CELL GENETICIST LAB_1 Performing Organization Address City/[facility] Phon e Number HP CONVERSION (ABNORMAL) IRON BINDING CAPACITY (INCL IRON) (03/08/2012 2:24 PM CDT) [facility] gist Method Time Signature Iron, Serum 31 (L) 50 - 165 HP CONVERSION ug/dL Iron Binding 413 250 - 450 HP CONVERSION Capacity ug/dL Iron Saturation 8 (L) 20 - 55 % HP CONVERSION Iron TIBC see below HP CONVERSION Interpretation Comment: Low iron, normal TIBC, possible iron deficiency. Specimen Anatomical Collection Method Collection Time Receive d Time (Source) Location / / Volume Laterality 03/08/2012 2:24 PM 2 6:29 CDT PM CDT Xuan Dickens APRN, CNP LAB_1 Performing Organization Address [facility] Code Phon e Number HP CONVERSION Hepatitis C Antibody, with Reflex (03/08/2012 2:24 PM CDT) [facility] Method Time Signature Hepatitis C Non-React Non-Reacti HP CONVERSION Antibody ve Specimen Anatomical Collection Method Collection Time Receive d Time (Source) Location / / Volume Laterality 03/08/2012 2:24 PM 2 6:29 CDT PM CDT Xuan Dickens APRN, CNP LAB_1 Performing Organization Address [facility] Code Phon e Number HP CONVERSION Hep B Surface Antigen, No Reflex (03/08/2012 2:24 PM CDT) Analysis Performed At [facility] Time Signature Hep B Surf Ag Negative Negative HP CONVERSION Specimen Anatomical Collection Method Collection Time Receive d Time (Source) Location / / Volume Laterality 03/08/2012 2:24 PM 2 6:29 CDT PM CDT Xuan Dickens APRN, CNP LAB_1 Performing Organization Address [facility] Code Phon e Number HP CONVERSION Hepatitis B Surface Antibody (03/08/2012 2:24 PM CDT) [facility] Method Time Signature Hep B Surf Ab Non-React Non-Reacti HP CONVERSION ve Specimen Anatomical Collection Method Collection Time Receive d Time (Source) Location / / Volume Laterality 03/08/2012 2:24 PM 2 6:29 CDT PM CDT Xuan Dickens APRN, CNP LAB_1 Performing Organization Address City/[facility]/ZIP Code Phon e Number HP CONVERSION HEPATITIS A PANEL, TOTAL + IGM ABYS (03/08/2012 2:24 PM CDT) [facility] Method Time Signature Hepatitis A Total Negative Negative HP CONVERSIO N Antibody Hepatitis A IgM Negative Negative HP CONVERSION Antibody Hepatitis A See Note HP CONVERSION Interpretation Comment: There is no serological evidence of acu te or prior Hepatitis A infection or evidence of ant ibody response to HAV vaccination. Specimen Anatomical Collection Method Collection Time Receive d Time (Source) Location / / Volume Laterality 03/08/2012 2:24 PM 2 6:09 CDT PM CDT Narrative HP CONVERSION - 03/12/2012 9:52 AM CDT Performed at [facility] [address] [place] [id number] Xuan Dickens APRN, IMANI LAB_1 Performing Organization Address [facility] Phon e Number HP CONVERSION (ABNORMAL) GT (Gamma GT) (03/08/2012 2:24 PM CDT) [facility] Method Time Signature Gamma-Glutamyl 274 (H) 1 - 48 U/L HP CONVERSION Transferase Specimen Anatomical Collection Method Collection Time Receive d Time (Source) Location / / Volume Laterality 03/08/2012 2:24 PM 2 6:29 CDT PM CDT Xuan Dickens APRN, IMANI LAB_1 Performing Organization Address [facility] Phon e Number HP CONVERSION documented in this encounter Visit Diagnoses Diagnosis Elevated liver enzymes Nonspecific elevation of levels of trans aminase or lactic acid dehydrogenase (LDH) documented in this encounter Care Teams Home Health Billing Specialist Relationship Specialty Start Date End Date Elizabeth Anderson MD PCP - General 09/15/02 03/17/12 [address] [place] [address] documented as of this encounter
--- OUTSIDE RECORDS SUMMARY | 2022-04-17 15:24 | XMS_ITS | Encounter Summary ---
:1980 Author Organization [facility] Address [address] [place] [address] Care Team Providers Name Role Phone Xuan Dickens APRN, CUSTODIAL LABORER Primary Care Provider [phone] Reason for Visit Reason Comments CONSULT Encounter Details Date Type Department Care Team Description 09/09/2012 Surgical Consult [facility] Kymberly Blanco L ow back pain; [facility] Hip pain, right [address] [place] [address] [address] [place], [place] [phone] (Wo rk) Social History Tobacco Use Types Packs/Day Years Used Date Smoking Tobacco: Never Assessed Sex Assigned at Date Recorded Not on file documented as of this encounter Last Filed Vital Signs Vital Sign Reading Time Taken Comments Blood Pressure 143/73 09/09/2012 3:46 PM MATERIAL REQUIREMENTS PLANNING MANAGER Pulse - - Temperature - - Respiratory Rate - - Oxygen Saturation - - Inhaled Oxygen Concentration - - Weight 156.6 kg (345 lb 3.2 oz) 09/09/2012 3:46 PM MATERIAL REQUIREMENTS PLANNING MANAGER Height 177.8 cm (5' 10) 09/09/2012 3:46 PM MATERIAL REQUIREMENTS PLANNING MANAGER Body Mass Index 49.53 09/09/2012 3:46 PM MATERIAL REQUIREMENTS PLANNING MANAGER documented in this encounter Patient Instructions Patient InstructionsMiOg krishna - 09/09/2012 3:46 PM CST Kmyberly Blanco PA-C Orthopaedic Spine Please contact Nurse triage for all medical questions at [phone] All Calls will be addressed in the afternoon during my office hours Mon., Sun., Sunday 7:30a to 7:00pm Please contact your Pharmacy for all medication refill requests-All medication refills will be addressed during my office hours as listed above. RIAL REQUIREMENTS PLANNING MANAGER documented in this encounter Progress Notes Kymberly Blanco PA-C - 09/24/2012 5:27 PM CST Progress Notes signed by Kymberly Blanco PA-C at 09/27/12903 Author: Kymberly Blanco PA-C Service: (none) Author Type: Physician Geospatial Extractor Analysis Filed: 09/27/12903 Note Time: 09/24/121726 Status: Signed Acid Adjuster: Kymberly Blanco PA-C (Physician Geospatial Extractor Analysis) NAME: LENNIE MOLINA VISIT: [id number] DICTATING CLINICIAN: KYMBERLY BLANCO PA-C JOB: [id number] Med JOB: [id number] LOC: 3711 CLINIC PROGRESS NOTE DATE OF VISIT: 09/09/2012 : 1980 This is a 32-year-old female seen today as a self-referral for low back pain. The patient states she has had a history of a right SI joint fusion done in 02/[address] Julio Jones, but that did not give her any benefit to her low back pain. She has had pain into her low back since the age of 15. She did have an MRI prior to her fusion which showed mild spondylotic changes per the patient. She finds sitting and standing is problematic for her. She is improved with lying down and utilizing heat. She currently does not work. She does not smoke. She drinks occasionally, but does not exercise. FAMILY HISTORY: Significant for cancer and osteoporosis. REVIEW OF SYSTEMS: Positive for glasses, heartburn, joint pain, arthritis, and chronic back pain as well as anemia per the patient's health history. PHYSICAL EXAMINATION: On examination, she is 70 inches tall, 345 pounds. Blood pressure is 143/73 and her pain level is 7/10. Her BMI is 49. On examination, she is obese. Friendly affect. Good historian. Pupils equal. She has difficulty transitioning from sitting to standing. Gait is nonantalgic. She can toe raise, heel raise, forward flex and extend. She is mildly tender with palpation of the SI joint and in the mid low back. Strength with hip flexion, knee abduction, adduction , knee extension, dorsiflexion and plantarflexion is 5/5. Sensation is intact. Reflexes symmetric. Straight leg raising is negative. Hip internal-external range of motion is intact. She has mild pain with internal rotation of the right hip. ASSESSMENT: This is a patient who is status post right SI joint fusion who has an HOMERO score of 54%. She complains of persistent pain into the right foot with walking and is in the process of being worked up for bypass surgery. PLAN: I would like her to do a CT of the pelvis to evaluate whether the right SI joint is fully fused. In addition, I would like an open upright lumbar spine MRI due to her size and BMI, an open-sided would be preferential at [facility]. I will follow up with her after the films have been obtained. Total time: 20 minutes. Counseling time: 18 minutes. IM: 09/25/2012 07:40:12 am MT: 26 RIAL REQUIREMENTS PLANNING MANAGER documented in this encounter Plan of Treatment Not on filedocumented as of this encounter Procedures Procedure Name Priority Date/Time Associated Diagnosis Comme nts XR LUMBAR SPINE Routine 09/09/2012 4:14 PM Low back pain Results for this AP/LAT VIEWS MATERIAL REQUIREMENTS PLANNING MANAGER Hip pain, right procedure ar e in the results section. XR PELVIS W RT Routine 09/09/2012 4:14 PM Low back pain Results for this LATERAL HIP MATERIAL REQUIREMENTS PLANNING MANAGER Hip pain, right procedure ar e in the results section. documented in this encounter Results XR Lumbar Spine AP/Lat Views (09/09/2012 4:14 PM MATERIAL REQUIREMENTS PLANNING MANAGER) Anatomical Region Laterality Modality Spine, L-Spine Other Specimen (Source) Anatomical Location Collection Method / Collectio n Time Received Time / Laterality Volume Narrative 09/09/2012 4:23 PM MATERIAL REQUIREMENTS PLANNING MANAGER There are no previous films. ??No fractu re is seen. ??There could be slight narrowing at the L5-S1 disk. ??A radiopaque density overlies the right sacrum near the SI joint as pe r patient's clinical history this could be related to the SI joint lobo rgical fusion. ??No other abnormality is seen. Procedure Note Pradip Rios MD - 02/19/2016Form atting of this note might be different from the original. There are no previous films. No fracture is seen. There could be slight narrowing at the L5-S1 disk. A ra diopaque density overlies the right sacrum near the SI joint as pe r patient's clinical history this could be related to the SI joint lobo rgical fusion. No other abnormality is seen. Kymberly Blanco PA-C RAD GD XR Pelvis W Rt Lateral Hip (09/09/2012 4:14 PM MATERIAL REQUIREMENTS PLANNING MANAGER) Anatomical Region Laterality Modality Pelvis, Hip Other Specimen (Source) Anatomical Location Collection Method / Collectio n Time Received Time / Laterality Volume Narrative 09/09/2012 4:24 PM MATERIAL REQUIREMENTS PLANNING MANAGER No fracture is seen. ??There could be mi ld degenerative change of the hips. ??Radiopaque density is again note d overlying the right sacrum in the area of the SI joint and could be related to previous surgical fusion as per patient's clinical history . ??No other abnormality is seen. Procedure Note Pradip Rios MD - 02/19/2016Form atting of this note might be different from the original. No fracture is seen. There could be mild degenerative change of the hips. Radiopaque density is again noted overlying the right sacrum in the area of the SI joint and could be related to previous surgical fusion as per patient's clinical history . No other abnormality is seen. Kymberly Blanco PA-C RAD GD documented in this encounter Visit Diagnoses Diagnosis Low back pain Hip pain, right Pain in joint, pelvic region and thigh documented in this encounter Care Teams Coffee Sampler Relationship Specialty Start Date End Date Xuan Dickens, EMBALMER/FUNERAL DIRECTOR, CUSTODIAL LABORER PCP - General 03/18/12 12/01/13 [address] [place] [address] documented as of this encounter
--- OUTSIDE RECORDS SUMMARY | 2022-04-17 15:24 | XMS_ITS | Encounter Summary ---
:1980 Author Organization [facility] Address [address] [place] [address] Care Team Providers Name Role Phone Elizabeth Anderson MD Primary Care Provider Encounter Details Date Type Department Care Team Description 03/01/[address] [facility] Abdominal bloating [address] [place] [place] [address] Social History Tobacco Use Types Packs/Day Years Used Date Smoking Tobacco: Never Assessed Sex Assigned at Date Recorded Not on file documented as of this encounter Plan of Treatment Not on filedocumented as of this encounter Procedures Procedure Name Priority Date/Time Associated Comments Diagnosis GLIADIN IGA Routine 03/01/2012 4:06 Results for this PM CDT procedure are i n the results section. CELIAC PANEL Routine 03/01/2012 4:06 Abdominal bloating Result s for this PM CDT procedure are i n the results section. HELICOBACTER PYLORI IGG Routine 03/01/2012 4:06 Abdominal bloa ting Results for this PM CDT procedure are i n the results section. THYROID STIMULATING Routine 03/01/2012 4:06 Abdominal bloating Results for this HORMONE PM CDT procedure are i n the results section. TISSUE TRANSGLUTAMINASE Routine 03/01/2012 4:06 R esults for this AB IGA PM CDT procedure are i n the results section. BILIRUBIN, TOTAL & Routine 03/01/2012 4:06 Abdominal bloating Results for this DIRECT PM CDT procedure are i n the results section. COMPLETE BLOOD COUNT-NO Routine 03/01/2012 4:06 Abdominal bloa ting Results for this DIFF PM CDT procedure are i n the results section. LIPASE Routine 03/01/2012 4:06 Abdominal bloating Result s for this PM CDT procedure are i n the results section. ALT (SGPT) Routine 03/01/2012 4:06 Abdominal bloating Result s for this PM CDT procedure are i n the results section. AST Routine 03/01/2012 4:06 Abdominal bloating Result s for this PM CDT procedure are i n the results section. ALKALINE PHOSPHATASE, Routine 03/01/2012 4:06 Abdominal bloati ng Results for this TOTAL PM CDT procedure are i n the results section. documented in this encounter Results GLIADIN IGA (03/01/2012 4:06 PM CDT) P athologist Signature Gliadin IgA 12 0 - 19 HP CONVERSION Antibodies Units Comment: INTERPRETIVE INFORMATION: Deamidated Gli wilfredo Peptide (DGP) Ab, IgA 19 Units or less: ........... Negative 20-30 Units: ................ Weak Posit faisal 31 Units or greater: ........ Positive Specimen Anatomical Collection Method Collection Time Receive d Time (Source) Location / / Volume Laterality 03/01/2012 4:06 PM 2 6:14 CDT PM CDT Narrative HP CONVERSION - 03/03/2012 9:20 PM CDT Performed at [facility] [address] [place] [id number] Xuan Dickens APRN, PROFESSIONAL GOLF TOURNAMENT PLAYER LAB_1 Performing Organization Address City/State/ZIP Code Phon e Number HP CONVERSION TISSUE TRANSGLUTAMINASE AB IGA (03/01/2012 4:06 PM CDT) Patholo gist Method Time Signature Tissue 6 0 - 19 HP CONVERSION Transglutaminase Units Antibody, IgA Comment: INTERPRETIVE INFORMATION: Tissue Transgl utaminase (tTG) Antibody, IgA 19 Units or less: Negative 20-30 Units: Weak Positive 31 Units or greater: Moderate to Strong Positive Presence of the tissue transglutaminase (tTG) IgA antibody is associated with gluten-sensitive ente ropathies such as celiac disease and dermatitis herpetifor mis. tTG IgA antibody concentrations greater than or equal to 100 Units usually correlate with results of duoden al biopsies consistent with a diagnosis of celiac di sease. For antibody concentrations greater than 20 Units but less than 100 Units, additional testing for endomysial (LESLEE) IgA concentrations may improve the positive predictive value for disease. Specimen Anatomical Collection Method Collection Time Receive d Time (Source) Location / / Volume Laterality 03/01/2012 4:06 PM 2 6:14 CDT PM CDT Narrative HP CONVERSION - 03/03/2012 9:16 PM CDT Performed at [facility] [address] [place] [address] Xuan Dickens APRN, CNP LAB_1 Performing Organization Address [facility] Phon e Number HP CONVERSION (ABNORMAL) CELIAC PANEL (03/01/2012 4:06 PM CDT) [facility] Method Time Signature Immunoglobulin A 470 (H) 68 - 378 HP CONVERSION mg/dL Comment: Tissue Transglutaminase Antibody, IgA b y DELILAH ([id number]) and Gliadin Peptide (deamidated) Antibod y, IgA ([id number]) to follow. Specimen Anatomical Collection Method Collection Time Receive d Time (Source) Location / / Volume Laterality 03/01/2012 4:06 PM 2 6:14 CDT PM CDT Narrative HP CONVERSION - 03/03/2012 10:34 AM CDT Performed at [facility] [address] [place] [address] Xuan Dickens APRN, CNP LAB_1 Performing Organization Address [facility] Phon e Number HP CONVERSION Lipase (03/01/2012 4:06 PM CDT) P athologist Signature Lipase 28 5 - 70 U/L HP CONVERSION Specimen Anatomical Collection Method Collection Time Receive d Time (Source) Location / / Volume Laterality 03/01/2012 4:06 PM 2 6:14 CDT PM CDT Xuan Dickens APRN, CNP LAB_1 Performing Organization Address [facility] Phon e Number HP CONVERSION Bilirubin, Total & Direct (03/01/2012 4:06 PM CDT) P athologist Signature Bilirubin Total 0.4 0.2 - 1.2 HP CONVERSION mg/dL Bilirubin, 0.2 0.0 - 0.4 HP CONVERSION Direct mg/dL Specimen Anatomical Collection Method Collection Time Receive d Time (Source) Location / / Volume Laterality 03/01/2012 4:06 PM 2 6:14 CDT PM CDT Xuan Sven Maninder [place] CNP LAB_1 Performing Organization Address [facility] Phon e Number HP CONVERSION (ABNORMAL) Alkaline Phosphatase, Total (03/01/2012 4:06 PM CDT) athologist Signature Alk Phos 171 (H) 25 - 135 HP CONVERSION U/L Specimen Anatomical Collection Method Collection Time Receive d Time (Source) Location / / Volume Laterality 03/01/2012 4:06 PM 2 6:14 CDT PM CDT Xuan Dickens APRN, CNP LAB_1 Performing Organization Address [facility] Phon e Number HP CONVERSION (ABNORMAL) ALT (SGPT) (03/01/2012 4:06 PM CDT) [facility] gist Method Time Signature Alanine 364 (H) 4 - 55 HP CONVERSION Aminotransferase U/L Specimen Anatomical Collection Method Collection Time Receive d Time (Source) Location / / Volume Laterality 03/01/2012 4:06 PM 2 6:14 CDT PM CDT Xuan Sven Maninder [place] CNP LAB_1 Performing Organization Address [facility] Phon e Number HP CONVERSION (ABNORMAL) AST (03/01/2012 4:06 PM CDT) [facility] gist Method Time Signature Aspartate 272 (H) 0 - 45 HP CONVERSION Aminotransferase U/L Specimen Anatomical Collection Method Collection Time Receive d Time (Source) Location / / Volume Laterality 03/01/2012 4:06 PM 2 6:14 CDT PM CDT Xuan Dickens APRN, CNP LAB_1 Performing Organization Address [facility] Phon e Number HP CONVERSION THYROID STIMULATING HORMONE (03/01/2012 4:06 PM CDT) athologist Signature Thyroid 1.51 0.20 - HP CONVERSION Stimulating 4.50 mIU/L Hormone Specimen Anatomical Collection Method Collection Time Receive d Time (Source) Location / / Volume Laterality 03/01/2012 4:06 PM 2 6:14 CDT PM CDT Xuan Dickens APRN, CNP LAB_1 Performing Organization Address [facility] Phon e Number HP CONVERSION (ABNORMAL) Hemogram/Plts (03/01/2012 4:06 PM CDT) [facility] Method Time Signature White Blood Cell 8.7 3.8 - HP CONVERSION Count 11.0 k/cmm Red Blood Cell 4.07 3.70 - HP CONVERSION Count 5.20 m/cmm Hemoglobin 11.0 (L) 11.8 - HP CONVERSION 15.5 g/dL Hematocrit 33.1 (L) 35.0 - HP CONVERSION 46.0 % Mean Corpuscular 81.3 80.0 - HP CONVERSION Volume 100.0 fL RDW 13.9 11.0 - HP CONVERSION 15.0 % Platelet Count 302 140 - 450 HP CONVERSION k/cmm Specimen Anatomical Collection Method Collection Time Receive d Time (Source) Location / / Volume Laterality 03/01/2012 4:06 PM 2 4:06 CDT PM CDT Narrative HP CONVERSION - 03/01/2012 4:16 PM CDT Performed at [facility], [address] [place] [id number] Xuan Dickens APRN, CNP LAB_1 Performing Organization Address [facility] Phon e Number HP CONVERSION HELICOBACTER PYLORI IGG (03/01/2012 4:06 PM CDT) [facility] Method Time Signature Helicobacter Negative Negative HP CONVERSION pylori IgG Comment: This assay should be used only for patie nts with symptoms suggestive of gastrointestinal disease. Specimen Anatomical Collection Method Collection Time Receive d Time (Source) Location / / Volume Laterality 03/01/2012 4:06 PM 2 6:15 CDT PM CDT Xuan Dickens APRN, CNP LAB_1 Performing Organization Address [facility] Phon e Number HP CONVERSION documented in this encounter Visit Diagnoses Diagnosis Abdominal bloating Flatulence, eructation, and gas pain documented in this encounter Care Teams Event Management Consultant Relationship Specialty Start Date End Date Elizabeth Anderson MD PCP - General 09/15/02 03/17/12 [address] [id number] documented as of this encounter
--- OUTSIDE RECORDS SUMMARY | 2022-04-17 15:24 | XMS_ITS | Encounter Summary ---
:1980 Author Organization [facility] Address [address] [place] [address] Care Team Providers Name Role Phone Xuan Dickens APRN, ECMO SPECIALIST Primary Care Provider [phone] Reason for Visit Reason Comments Annual Exam Encounter Details Date Type Department Care Team Description 08/22/2012 Office Visit Effie Merlin Smallwood, O D Examination of eyes and vision; Ophthalmology [address] Astigmatism, unspecified; [address] [place], [place] [address] [address] [address] [place], [place] [address] [phone] Social History Tobacco Use Types Packs/Day Years Used Date Smoking Tobacco: Never Assessed Sex Assigned at Date Recorded Not on file documented as of this encounter Progress Notes Merlin Smallwood, OD - 08/22/2012 3:02 PM CST Patient is alert. Complete eye exam. Spectacle Rx given for refractive error. Recheck 2 year(s) or sooner as needed. documented in this encounter Nursing Notes 08/22/2012 2:00 PM CST >> Goldie Constantino Aug 22, 2012 2:16 PM Patient prefers to be called Lennie Occupation (vision demands) - Last visit with examing doctor - [facility] Last visit with [facility] Eye Department - new pt Last complete eye exam - 2 yrs ago Vision concerns - decreased NVA, harder to see computer screen Current eye medications - Visine-PRN Significant Ocular History - none LE STITCH OPERATOR documented in this encounter Plan of Treatment Not on filedocumented as of this encounter Visit Diagnoses Diagnosis Examination of eyes and vision Astigmatism, unspecified Hyperopia Hypermetropia documented in this encounter Care Teams Flooring Machine Feeder Relationship Specialty Start Date End Date Xuan Dickens, YEAST CAKE CUTTER, ECMO SPECIALIST PCP - General 03/18/12 [address] [place] [address] documented as of this encounter
--- OUTSIDE RECORDS SUMMARY | 2022-04-17 15:24 | XMS_ITS | Encounter Summary ---
:1980 Author Organization [facility] Address [address] [place] [address] Care Team Providers Name Role Phone Xuan Dickens APRN, CNP Primary Care Provider [phone] Encounter Details Date Type Department Care Team Description 03/22/2012 Imaging [facility] nd [address] [place], [place] [address] Social History Tobacco Use Types Packs/Day Years Used Date Smoking Tobacco: Never Assessed Sex Assigned at Date Recorded Not on file documented as of this encounter Plan of Treatment Not on filedocumented as of this encounter Visit Diagnoses Not on filedocumented in this encounter Care Teams Sewing Machine Bobbin Winder Relationship Specialty Start Date End Date Xuan Dickens APRN, CNP PCP - General 03/18/12 12/01/13 [address] [place] [address] documented as of this encounter
--- OUTSIDE RECORDS SUMMARY | 2022-04-17 15:25 | XMS_ITS | Encounter Summary ---
:1980 Author Organization [facility] Address [address] [address] Care Team Providers Name Role Phone Elizabeth Anderson MD Primary Care Provider Encounter Details Date Type Department Care Team Description 07/05/2009 Office Visit [facility] Brennon Bonilla MD Medicine [address] [place] [address] [place], [place] [address] [phone] Social History Tobacco Use Types Packs/Day Years Used Date Smoking Tobacco: Never Assessed Sex Assigned at Date Recorded Not on file documented as of this encounter Last Filed Vital Signs Vital Sign Reading Time Taken Comments Blood Pressure 127/83 07/05/2009 2:50 PM SAFETY ENGINEER PRESSURE VESSELS Pulse 73 07/05/2009 2:50 PM SAFETY ENGINEER PRESSURE VESSELS Temperature 36.9 ??C (98.4 ??F) 07/05/2009 2:50 PM C: 36.9 C SAFETY ENGINEER PRESSURE VESSELS Respiratory Rate - - Oxygen Saturation - - Inhaled Oxygen - - Concentration Weight 146.5 kg (322 lb 07/05/2009 2:50 PM C: 146.5kg * k 15.9 oz) SAFETY ENGINEER PRESSURE VESSELS Height - - Body Mass Index - - documented in this encounter Progress Notes Julio Bonilla MD - 07/05/2009 12:01 AM CST Progress Notes signed by Julio Bonilla MD at 07/05/09 1540 Author: Julio Bonilla MD Service: (none) Author Type: Physician Filed: 12/24/10 1736 Note Time: 07/05/09 0001 Status: Signed Pediatric Radiologist: Julio Bonilla MD (Physician) SUBJECTIVE Ms. Sal is here with her mother for 3 days of left upper quadrant pain with some radiation into the left back. It is aggravated by eating. Has been no nausea or vomiting but she is slightly anorectic. She has mild constipation with relief by polyethylene glycol taken 3 days ago but no bowel movement for the past 48 hours. There is a history of intermittent abdominal symptoms that she dates to some low back surgery earlier this year and for which she is on continuing morphine and Vicodin for pain control. She is also on sertraline and daily Prilosec. OBJECTIVE Obese; blood pressure: 127/83; weight: 225; pulse: 73; temp: 98.5 there is tenderness over the left upper quadrant and midepigastrium but no tenderness on the right side or the lower part of the abdomen. ASSESSMENT Abdominal pain; etiology unclear PLAN I suspect this is some variant of irritable bowel probably complicated by the multiple pain medications she is taking. I had nothing to offer beyond pain medicines and acid suppressants that she was already on. I suggested a GI consult which could probably be expedited by using an outside gastroenterology clinic. FINAL IMPRESSION Abdominal pain *SH~DNS~SOAP TY ENGINEER PRESSURE VESSELS documented in this encounter Plan of Treatment Not on filedocumented as of this encounter Visit Diagnoses Not on filedocumented in this encounter Care Teams Masticator Relationship Specialty Start Date End Date Elizabeth Anderson MD PCP - General 09/15/02 03/17/12 [address] [place] [address] documented as of this encounter
--- OUTSIDE RECORDS SUMMARY | 2022-04-17 15:25 | XMS_ITS | Encounter Summary ---
:1980 Author Organization [facility] Address [address] [place] [address] Care Team Providers Name Role Phone Elizabeth Anderson MD Primary Care Provider Encounter Details Date Type Department Care Team Description 01/10/2011 Office Visit [facility] Sandra Renteria MD Medicine [address] [place] [address] [place], [place] [address] [phone] Social History Tobacco Use Types Packs/Day Years Used Date Smoking Tobacco: Never Assessed Sex Assigned at Date Recorded Not on file documented as of this encounter Progress Notes Sandra Renteria MD - 01/10/2011 12:01 AM CDT Preventive Exam & Pelvic SUBJECTIVE: Patient presents for a routine preventive physical exam. Prior care had been at [facility] medicine [facility]. Her insurance has switched so she is switching clinics. She has long-standing problems with her back. Was diagnosed with degenerative disc disease. Underwent an SI joint fusion [address] Jones at [facility]. She thinks the surgery made things worse. She has constant low back pain with radiation into her right leg. In addition, in the last several months she's been having right hip pain. She saw an orthopedist at [facility] recently was told she had a bone spur in her hip and she apparently is going to be getting a cortisone injection tomorrow. She has been on tramadol 100 mg b.i.d. for pain and would like a refill. Past Medical History: 1. Degenerative disc disease/chronic low back pain with possible lumbar radiculopathy on the right. 2. Status post right SI joint fusion 3. Depression, she has been off Zoloft for the last year and since stopping the medication thinks she feels better. Per prior psychiatric notes also has axis II diagnosis of borderline personality disorder.4. Status post appendectomy 5. Obesity, she is pursuing gastric bypass. 6. history of anemia Coach Driver History: Menses are not regular, last menstrual period was greater than one month ago. /Para: 0 Last Pap Smear: Many years ago. She has no abnormal Pap that she knows of but hasn't been getting regular health care screening. Adverse Drug Reactions: No known drug allergies. Current Medications: Tramadol 100 mg b.i.d. Family History: Grandmother with osteoporosis. No breast CA. No colon CA. No diabetes mellitus. No DVT/pulmonary embolism. No hypertension. Social History: Lives with her mom. Employment Status: Unemployed Marital Status: Single Sexual History: Not sexually active currently. Habits: Tobacco: Nonsmoker Alcohol: No alcohol Preventive Health Assessment: Preventive Health screen was reviewed and updated today in [facility]. Tetanus immunization is due. Exercise is inadequate. Review of Systems: With the exception of any items noted above, the remainder of the complete ROS is negative. OBJECTIVE: Vital Signs: Weight 338 pounds; height 69.5 inches, BMI 49.1; BP 130/66; pulse 82. General: Patient alert, in NAD. HEENT: PERRLA. Bilateral TM's, external canals, oropharynx normal. Neck: Supple, without thyromegaly or mass. Upper Extremities: FROM with good strength, no lesions or deformities. CV: RRR without murmurs, rubs or gallops. Resp: Clear to auscultation without crackles, wheezes or distress. Abdomen: Soft, non-tender, without hepatosplenomegaly, masses, or hernias. Breasts: Symmetrical, nontender, without masses or nipple discharge. Lymphatic: No neck, supraclavicular or axillary lymphadenopathy. Lower Extremities: FROM, normal gait without edema, lesions, or deformity. Pelvic: External normal without lesions. Vagina reveals healthy mucosa with no vaginal or cervical lesions, and no abnormal discharge. Bimanual limited due to body habitus. No adenexal masses or tenderness. Skin: No lesions. Neuro: CN II-XII, motor function grossly intact. Reflexes equal bilaterally. Psychiatric: Alert & oriented with normal affect and insight. Patient does not appear depressed or anxious. ASSESSMENT: 1. Routine preventive exam. 2. Chronic low back pain 3. Right hip pain 4. History of anemia PLAN: 1. Pap smear was done. STD probe. Tdap. Check blood sugar and cholesterol. Records requested from [facility] medicine clinic. 2. Tramadol refilled for one month with one refill. Records requested from her prior surgery as well as [facility] where she has been seen for a second opinion. 3. Records requested from her orthopedic clinic. 4. She requests a CBC today. Labs: We will mail lab results to patient. *SH~DNS~PEF documented in this encounter Plan of Treatment Not on filedocumented as of this encounter Visit Diagnoses Not on filedocumented in this encounter Care Teams Counter Dish Carrier Relationship Specialty Start Date End Date Elizabeth Anderson MD PCP - General 09/15/02 03/17/12 [address] [place] [address] documented as of this encounter
--- OUTSIDE RECORDS SUMMARY | 2022-04-17 15:25 | XMS_ITS | Encounter Summary ---
:1980 Author Organization [facility] Address [address] [place] [address] Care Team Providers Name Role Phone Xuan Dickens APRN, CNP Primary Care Provider Encounter Details Date Type Department Care Team Description 04/12/2011 Notes/Orders [facility] Celso Jackson MD [address] [place], [place] [address] [address] [phone] [place] [address] (Wo rk) Social History Tobacco Use Types Packs/Day Years Used Date Smoking Tobacco: Never Assessed Sex Assigned at Date Recorded Not on file documented as of this encounter Plan of Treatment Not on filedocumented as of this encounter Visit Diagnoses Not on filedocumented in this encounter Care Teams Upholstery Parts Sorter Relationship Specialty Start Date End Date Xuan Dickens APRN, REFINERY OPERATOR HELPER PCP - General 03/18/12 3 [address] [place], [place] [address] documented as of this encounter
--- OUTSIDE RECORDS SUMMARY | 2022-04-17 15:25 | XMS_ITS | Encounter Summary ---
:1980 Author Organization [facility] Address [address] [place] [address] Care Team Providers Name Role Phone Anny Daily APRN, CNP Primary Care Provider Encounter Details Date Type Department Care Team Description 01/10/2011 Orders Only [facility] Claims MD Rey Security Contact Bill [address] [place] [address] Mailstop [id number] [phone] (Wo rk) Social History Tobacco Use Types Packs/Day Years Used Date Smoking Tobacco: Never Assessed Sex Assigned at Date Recorded Not on file documented as of this encounter Plan of Treatment Not on filedocumented as of this encounter Visit Diagnoses Not on filedocumented in this encounter Care Teams Ferry Terminal Supervisor Relationship Specialty Start Date End Date Anny Daily APRN, CNP PCP - General 12/16/13 04/09/16 [address] [place] [address] documented as of this encounter
--- OUTSIDE RECORDS SUMMARY | 2022-04-17 15:25 | XMS_ITS | Encounter Summary ---
:1980 Author Organization [facility] Address [address] [place] [address] Care Team Providers Name Role Phone Elizabeth Anderson MD Primary Care Provider Reason for Visit Reason Onset Date Comments Medication Questions 04/23/2011 Encounter Details Date Type Department Care Team Description 04/23/2011 Telephone Careline Unknown, Physician Medication Questions [address] [place], [place] [address] [place], [place] [phone] Social History Tobacco Use Types Packs/Day Years Used Date Smoking Tobacco: Never Assessed Sex Assigned at Date Recorded Not on file documented as of this encounter Nursing Notes Francine Majano RN - 04/23/2011 2:27 PM CDT Concern: 5-6 days ago had small breakout on face. Next day it became infected and had swollen gland. Went to [facility] and was put on Bactrim DS. On abx about 4 days now. The sores have improved but pt does not feel well. Provider at [facility] also mentioned herpes but elected to put her on abx. Feels feverish but no fever when she takes it. Feels shaky, chilled and warm at times. Lip is still painful but seems to be slowly healing. Swollen gland has not decreased. Plan: Advised uc eval today. Pt agrees with plan. Carmen Melecio, RN Suleman Diaz - 04/23/2011 1:37 PM CDT Does the patient currently have [employer] insurance?Yes Which care system is the patient affiliated with?[facility] What would caller have done if the CareLine were not available?Self Care Situation:pt has a medication question. A nurse will call you back within the next hour. If you have not heard from a nurse, please feel free to call us back at [phone] and state that you are waiting for a callback. documented in this encounter Plan of Treatment Not on filedocumented as of this encounter Visit Diagnoses Not on filedocumented in this encounter Care Teams Marketing Lead Relationship Specialty Start Date End Date Elizabeth Anderson MD PCP - General 09/15/02 03/17/[address] [place] [id number] documented as of this encounter
--- OUTSIDE RECORDS SUMMARY | 2022-04-17 15:25 | XMS_ITS | Encounter Summary ---
:1980 Author Organization [facility] Address [address], [place] [address] Care Team Providers Name Role Phone Elizabeth nAderson MD Primary Care Provider Encounter Details Date Type Department Care Team Description 08/07/2008 Nursing Visit [facility] Johnie Hodge, Medicine DO [address] [place], [place] [address] [place] [address] [phone] (Wo rk) Social History Tobacco Use Types Packs/Day Years Used Date Smoking Tobacco: Never Assessed Sex Assigned at Date Recorded Not on file documented as of this encounter Plan of Treatment Not on filedocumented as of this encounter Visit Diagnoses Not on filedocumented in this encounter Care Teams Automatic Log Cut Off Sawyer Relationship Specialty Start Date End Date Elizabeth Anderson MD PCP - General 09/15/02 03/17/12 [address] [place] [address] documented as of this encounter
--- OUTSIDE RECORDS SUMMARY | 2022-04-17 15:25 | XMS_ITS | Encounter Summary ---
:1980 Author Organization [facility] Address [address] [place] [address] Care Team Providers Name Role Phone Elizabeth Anderson MD Primary Care Provider Encounter Details Date Type Department Care Team Description 01/20/2011 PN Conversion Only [place] [facility] Celso Jackson [facility] [address] [facility] [address] [place] [address] [address] [place] [address] (Wo rk) Social History Tobacco Use Types Packs/Day Years Used Date Smoking Tobacco: Never Assessed Sex Assigned at Date Recorded Not on file documented as of this encounter Plan of Treatment Not on filedocumented as of this encounter Procedures Procedure Name Priority Date/Time Associated Comments Diagnosis THYROID STIMULATING Routine 01/20/2011 3:47 PM Re sults for this HORMONE CDT procedure are i n the results section. VITAMIN D 25-HYDROXY, Routine 01/20/2011 3:47 PM Results for this TOTAL CDT procedure are i n the results section. INTACT PTH Routine 01/20/2011 3:47 PM Results f or this CDT procedure are i n the results section. COMPLETE BLOOD Routine 01/20/2011 3:47 PM Results for this COUNT-W/DIFF CDT procedure are i n the results section. COMP METABOLIC PANEL Routine 01/20/2011 3:47 PM R esults for this CDT procedure are i n the results section. APTT (ACTIVATED PARTIAL Routine 01/20/2011 3:47 PM Results for this THROMBOPLASTIN TIME CDT procedur e are in the results section. DIFFERENTIAL Routine 01/20/2011 3:47 PM Results f or this CDT procedure are i n the results section. FERRITIN Routine 01/20/2011 3:47 PM Results f or this CDT procedure are i n the results section. INR/PROTIME Routine 01/20/2011 3:47 PM Results f or this CDT procedure are i n the results section. documented in this encounter Results INR/Protime (01/20/2011 3:47 PM CDT) Analysis Performed At Patho logist Time Signature Prothrombin Time 13.0 12.6 - 15.0 HP CONVERSI ON sec INR 1.0 No normal HP CONVERSION range Comment: Recommendations for INR in warfarin ther apy: (Chest, Vol. 119, No. 1, Sep 2000, Suppl ement). Prevention and treatment of venous throm bosis; ? INR 2.0-3.0 Treatment of PE; Prevention of systemic embolism due to prosthetic tissue heart valves, b ileaflet mechanical valves in the aortic position , acute WI, valvular heart disease and atrial fibril lation. Mechanical prosthetic valves, (high risk ). ? INR 2.5-3.5 Prevention of recurrent myocardial infar ct. These recommended ranges serve as guidel erica. Adjustment outside these ranges may be c linically indicated. Specimen (Source) Anatomical Collection Method Collection Time Re ceived Time Location / / Volume Laterality 01/20/2011 3:47 PM CDT Celso Jackson MD LAB_1 Performing Organization Address City/State/ZIP Code Phon e Number HP CONVERSION (ABNORMAL) Vitamin D 25-Hydroxy, Total (01/20/2011 3:47 PM CDT) P athologist Signature Vitamin D 25 12 (L) 20 - 80 HP CONVERSION Oh ng/mL Comment: Lab results faxed to [phone], 2010,19:35, by ANTHONY Lab results faxed to [phone], 011,19:11, by ANTHONY Deficiency = <20 Adequate ??= 20-29 Preferred = 30-50 Uncertain safety = 51-80 High = >80 Specimen (Source) Anatomical Collection Method Collection Time Re ceived Time Location / / Volume Laterality 01/20/2011 3:47 PM CDT Celso Jackson MD LAB_1 Performing Organization Address City/State/ZIP Code Phon e Number HP CONVERSION Intact PTH (01/20/2011 3:47 PM CDT) P athologist Signature PTH 52 10 - 100 HP CONVERSION pg/mL Comment: Lab results faxed to [phone], 01/20/2011,19:11, by [facility] Specimen (Source) Anatomical Collection Method Collection Time Re ceived Time Location / / Volume Laterality 01/20/2011 3:47 PM CDT Celso Jackson MD LAB_1 Performing Organization Address City/State/ZIP Code Phon e Number HP CONVERSION (ABNORMAL) Comp Metabolic Panel (01/20/2011 3:47 PM CDT) Patholo gist Method Time Signature Aspartate 17 0 - 45 HP CONVERSION Aminotransferase U/L Lab Glucose 106 (H) 60 - 100 HP CONVERSION mg/dL Bilirubin Total 0.2 0.2 - 1.2 HP CONVERSION mg/dL Calcium 9.3 8.5 - HP CONVERSION 10.5 mg/dL Sodium 143 137 - 147 HP CONVERSION mEq/L Potassium 4.5 3.5 - 5.2 HP CONVERSION mEq/L Blood Urea Nitrogen 10 5 - 26 HP CONVERS ION mg/dL Albumin 4.2 3.4 - 5.0 HP CONVERSION g/dL Chloride 107 98 - 110 HP CONVERSION mEq/L Alk Phos 61 25 - 135 HP CONVERSION U/L Protein Total, Serum 7.0 5.7 - 8.3 HP CONVER UNRULY g/dL Creatinine Serum 0.8 0.4 - 1.3 HP CONVERSION mg/dL Est GFR Am >60 >60 HP CONVERSI ON mL/min/1. 7 Est GFR Non-Afr Am >60 >60 HP CONVERSI ON mL/min/1. 7 Comment: Normal>60, moderate decrease 30 - 59, se josi decrease 15 - 29, renal failure <15 mL/min/1.73 m2 NOTE: ??Choose the eGFR result above loida ropriate for the race of the patient. Alanine Aminotransferase 22 4 - 55 U/L HP C ONVERSION Bicarbonate 28 23 - 33 mmol/L HP CONVERSION Specimen (Source) Anatomical Collection Method Collection Time Re ceived Time Location / / Volume Laterality 01/20/2011 3:47 PM CDT Celso Jackson MD LAB_1 Performing Organization Address [facility] Code Phon e Number HP CONVERSION THYROID STIMULATING HORMONE (01/20/2011 3:47 PM CDT) athologist Signature Thyroid 1.75 0.20 - HP CONVERSION Stimulating 4.50 mIU/L Hormone Specimen (Source) Anatomical Collection Method Collection Time Re ceived Time Location / / Volume Laterality 01/20/2011 3:47 PM CDT Celso Jackson MD LAB_1 Performing Organization Address [facility] Code Phon e Number HP CONVERSION (ABNORMAL) Ferritin (01/20/2011 3:47 PM CDT) athologist Signature Ferritin Serum 8 (L) 10 - 291 HP CONVERSION ng/mL Comment: Lab results faxed to [phone], 01/20/2011,19:11, by [facility] Specimen (Source) Anatomical Collection Method Collection Time Re ceived Time Location / / Volume Laterality 01/20/2011 3:47 PM CDT Celso Jackson MD LAB_1 Performing Organization Address [facility] Phon e Number HP CONVERSION APTT (Activated Partial Thromboplastin Time) (01/20/2011 3:47 PM CDT) [facility] gist Method Time Signature Partial 33.5 25.0 - HP CONVERSION Thromboplastin Time 38.0 sec Specimen (Source) Anatomical Collection Method Collection Time Re ceived Time Location / / Volume Laterality 01/20/2011 3:47 PM CDT Celso Jackson MD LAB_1 Performing Organization Address City/[facility] Code Phon e Number HP CONVERSION Differential (01/20/2011 3:47 PM CDT) athologist Signature Absolute 6.7 1.8 - 8.0 HP CONVERSION Neutrophils k/cmm Absolute 3.5 1.1 - 4.0 HP CONVERSION Lymphocytes k/cmm Absolute 0.7 0.2 - 0.8 HP CONVERSION Monocytes k/cmm Absolute 0.2 0.0 - 0.5 HP CONVERSION Eosinophils k/cmm Absolute 0.1 0.0 - 0.2 HP CONVERSION Basophils k/cmm Specimen (Source) Anatomical Collection Method Collection Time Re ceived Time Location / / Volume Laterality 01/20/2011 3:47 PM CDT Celso Jackson MD LAB_1 Performing Organization Address City/[facility] Phon e Number HP CONVERSION (ABNORMAL) Hemogram/Plts/Diff (01/20/2011 3:47 PM CDT) [facility] gist Method Time Signature White Blood Cell 11.2 (H) 3.8 - HP CONVERSION Count 11.0 k/cmm Red Blood Cell 4.45 3.70 - HP CONVERSION Count 5.20 m/cmm Hemoglobin 9.7 (L) 11.8 - HP CONVERSION 15.5 g/dL Hematocrit 31.6 (L) 35.0 - HP CONVERSION 46.0 % Mean Corpuscular 71.0 (L) 80.0 - HP CONVERSION Volume 100.0 fL RDW 16.1 (H) 11.0 - HP CONVERSION 15.0 % Platelet Count 516 (H) 140 - 450 HP CONVERSION k/cmm Specimen (Source) Anatomical Collection Method Collection Time Re ceived Time Location / / Volume Laterality 01/20/2011 3:47 PM CDT Celso Jackson MD LAB_1 Performing Organization Address [facility] Phon e Number HP CONVERSION documented in this encounter Visit Diagnoses Not on filedocumented in this encounter Care Teams Shrimp Peeling Machine Tender Relationship Specialty Start Date End Date Elizabeth Anderson MD PCP - General 09/15/02 03/17/12 [address] [address] documented as of this encounter
--- OUTSIDE RECORDS SUMMARY | 2022-04-17 15:25 | XMS_ITS | Encounter Summary ---
:1980 Author [facility] Address [address] [place] [address] Care Team Providers Name Role Phone Elizabeth Anderson MD Primary Care Provider Encounter Details Date Type Department Care Team Description 03/02/2011 PN Conversion Only [place] [facility] [address] [place] [address] Social History Tobacco Use Types Packs/Day Years Used Date Smoking Tobacco: Never Assessed Sex Assigned at Date Recorded Not on file documented as of this encounter Plan of Treatment Not on filedocumented as of this encounter Visit Diagnoses Not on filedocumented in this encounter Care Teams Sales Representative Public Utilities Relationship Specialty Start Date End Date Elizabeth Anderson MD PCP - General 09/15/02 03/17/12 [address] [place] [address] documented as of this encounter
--- OUTSIDE RECORDS SUMMARY | 2022-04-17 15:25 | XMS_ITS | Encounter Summary ---
:1980 Author Organization [facility] Address [address] [place] [address] Care Team Providers Name Role Phone Elizabeth Anderson MD Primary Care Provider Reason for Visit Reason Comments Refill Encounter Details Date Type Department Care Team Description 03/08/2011 Refill [facility] Sandra Renteria MD Refill [address] [place], [place] [address] [place] [address] [phone] Social History Tobacco Use Types Packs/Day Years Used Date Smoking Tobacco: Never Assessed Sex Assigned at Date Recorded Not on file documented as of this encounter Nursing Notes Darlene Weldon - 03/10/2011 2:25 PM CDT Spoke with pharmacist and advised that rx was declined and that pt. should get through orthopedist. Sandra Renteria MD - 03/09/2011 4:21 PM CDT This medication should come through the orthopedist treating her for her hip pain. documented in this encounter Plan of Treatment Not on filedocumented as of this encounter Visit Diagnoses Not on filedocumented in this encounter Care Teams Dispatcher Service Or Work Relationship Specialty Start Date End Date Elizabeth Anderson MD PCP - General 09/15/02 03/17/12 [address] [place] [address] documented as of this encounter
--- OUTSIDE RECORDS SUMMARY | 2022-04-17 15:25 | XMS_ITS | Encounter Summary ---
:1980 Author Organization [facility] Address [address] [address] Care Team Providers Name Role Phone Elizabeth Anderson MD Primary Care Provider Encounter Details Date Type Department Care Team Description 08/04/2008 Office Visit [facility] Shivani Fagan MD Medicine [address] [place], [place] [address] [place] [address] [phone] Social History Tobacco Use Types Packs/Day Years Used Date Smoking Tobacco: Never Assessed Sex Assigned at Date Recorded Not on file documented as of this encounter Last Filed Vital Signs Vital Sign Reading Time Taken Comments Blood Pressure 103/73 08/04/2008 2:23 PM C: [employer] BLOCK MECHANIC Pulse 87 08/04/2008 2:23 PM BLOCK MECHANIC Temperature - - Respiratory Rate - - Oxygen Saturation - - Inhaled Oxygen Concentration - - Weight 145.1 kg (319 lb 15.6 08/04/2008 2:23 PM C: 145. 2kg oz) BLOCK MECHANIC Height - - Body Mass Index - - documented in this encounter Progress Notes Hadley Fagan MD - 08/04/2008 12:01 AM CST Progress Notes signed by Hadley Fagan MD at 08/12/08 1123 Author: Hadley Fagan MD Service: (none) Author Type: Physician Filed: 12/24/10 0858 Note Time: 08/04/08 0001 Status: Signed Health And Wellness Sales Consultant: Hadley Fagan MD (Physician) NAME: LENNIE MOLINA MR#: [id number] ACCT: [id number] VISIT: [id number] DICTATING CLINICIAN: HADLEY FAGAN MD CONFIRM #: [id number] LOC: 306 CLINIC PROGRESS NOTE DATE OF VISIT: 08/04/2008 SUBJECTIVE: A 28-year-old woman here today with complaints of shoulder pain for the last 2 weeks. Does not recall any specific injury or activity. She awoke with it close to 2 weeks ago. Describes it as an anterior pressure sensation, actually more of the shoulder was involved with some radiation up to her neck and care home down her upper arm. Easily she can manipulate the shoulder to decrease the pain but often it returns. Has not tried any medications, ice or heat. Did try athletic balm with some temporary improvement. She has had low back pain issues in the past that are doing much better since physical therapy last year. 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 ALLERGIES: REVIEWED AND UPDATED IN LASTWORD. MEDICATIONS: Reviewed and updated in LastWord. PROBLEM LIST: Reviewed and updated in LastWord. SOCIAL HISTORY: She is currently unemployed. OBJECTIVE: VS: Per LastWord. She is a morbidly obese woman in no distress. She is able to abduct her arm completely on the left. Full range of motion is intact, although pain with the extremes of the range of motion procedure. She is point tender on her anterior shoulder joints. Neck has full range of motion. Arm is without other abnormalities. ASSESSMENT: Shoulder pain. PLAN: Discussed the situation with the patient and most likely is a bursitis or tendonitis. Would like her to ice the area aggressively. Discussed pain medications. We also discussed physical therapy and will help her arrange. She states she was told she could not schedule any more physical therapy appointments due to multiple fails. She states this was during a stressful time in her life when she was attempting to move and will now be compliant with physical therapy appointments. Willing to give her a second chance and an appointment is to be arranged. COLLETTE:[id number] C: 08/05/08 06:50 CONFIRM #: [id number] K MECHANIC documented in this encounter Plan of Treatment Not on filedocumented as of this encounter Visit Diagnoses Not on filedocumented in this encounter Care Teams Electrolysis Operator Relationship Specialty Start Date End Date Elizabeth Anderson MD PCP - General 09/15/02 03/17/[address] [place] [address] [place] [address] documented as of this encounter
--- OUTSIDE RECORDS SUMMARY | 2022-04-17 15:25 | XMS_ITS | Encounter Summary ---
:1980 Author Organization [facility] Address [address], [place] [address] Care Team Providers Name Role Phone Elizabeth Anderson MD Primary Care Provider Reason for Visit Reason Comments Refill Encounter Details Date Type Department Care Team Description 03/20/2011 Refill [facility] Sandra Renteria MD Refill [address] [place], [place] [address] [place] [address] [phone] Social History Tobacco Use Types Packs/Day Years Used Date Smoking Tobacco: Never Assessed Sex Assigned at Date Recorded Not on file documented as of this encounter Plan of Treatment Not on filedocumented as of this encounter Visit Diagnoses Not on filedocumented in this encounter Care Teams Latex Dipper Relationship Specialty Start Date End Date Elizabeth Anderson MD PCP - General 09/15/02 03/17/12 [address] [place] [address] documented as of this encounter
--- OUTSIDE RECORDS SUMMARY | 2022-04-17 15:25 | XMS_ITS | Encounter Summary ---
:1980 Author Organization [facility] Address [address], [place] [address] Care Team Providers Name Role Phone Elizabeth Anderson MD Primary Care Provider Encounter Details Date Type Department Care Team Description 02/23/2011 PN Conversion Only [place] [facility] ON Sandra Renteria, [address] [place] [address] [address] [place] [address] Social History Tobacco Use Types Packs/Day Years Used Date Smoking Tobacco: Never Assessed Sex Assigned at Date Recorded Not on file documented as of this encounter Plan of Treatment Not on filedocumented as of this encounter Procedures Procedure Name Priority Date/Time Associated Diagnosis Comme nts IRON BINDING Routine 02/23/2011 4:25 PM Results f or this CAPACITY (INCL CDT procedure are in IRON) the results section. FERRITIN Routine 02/23/2011 4:25 PM Results f or this CDT procedure are i n the results section. TEST Routine 02/23/2011 4:21 PM Results for this (URINE) CDT procedure are i n the results section. documented in this encounter Results (ABNORMAL) IRON BINDING CAPACITY (INCL IRON) (02/23/2011 4:25 PM CDT) [facility] Method Time Signature Iron, Serum 18 (L) 50 - 165 HP CONVERSION ug/dL Iron Binding 419 250 - 450 HP CONVERSION Capacity ug/dL Iron Saturation 4 (L) 20 - 55 % HP CONVERSION Iron TIBC see below No normal HP CONVERSION Interpretation range Comment: Low iron, normal TIBC, possible iron deficiency. Specimen (Source) Anatomical Collection Method Collection Time Re ceived Time Location / / Volume Laterality 02/23/2011 4:25 PM CDT Sandra Renteria MD LAB_1 Performing Organization Address City/[facility]/ZIP Code Phon e Number HP CONVERSION (ABNORMAL) Ferritin (02/23/2011 4:25 PM CDT) P athologist Signature Ferritin Serum 4 (L) 10 - 291 HP CONVERSION ng/mL Specimen (Source) Anatomical Collection Method Collection Time Re ceived Time Location / / Volume Laterality 02/23/2011 4:25 PM CDT Sandra Renteria MD LAB_1 Performing Organization Address City/[facility]/ZIP Code Phon e Number HP CONVERSION Test (Urine) (02/23/2011 4:21 PM CDT) Patholo gist Method Time Signature Urine Negative No normal HP CONVERSION Test range Specimen (Source) Anatomical Collection Method Collection Time Re ceived Time Location / / Volume Laterality 02/23/2011 4:21 PM CDT Sandra Renteria MD LAB_1 Performing Organization Address City/[facility]/ZIP Code Phon e Number HP CONVERSION documented in this encounter Visit Diagnoses Not on filedocumented in this encounter Care Teams Wheat Inspector Relationship Specialty Start Date End Date Elizabeth Anderson MD PCP - General 09/15/02 03/17/12 [address] [place] [address] documented as of this encounter
--- OUTSIDE RECORDS SUMMARY | 2022-04-17 15:25 | XMS_ITS | Encounter Summary ---
:1980 Author [facility] Address [address], [place] [address] Care Team Providers Name Role Phone Elizabeth Anderson MD Primary Care Provider Reason for Visit Reason Comments Refill Encounter Details Date Type Department Care Team Description 03/13/2011 Refill [facility] Sandra Renteria MD Refill [address] [place], [place] [address] [place] [address] [phone] Social History Tobacco Use Types Packs/Day Years Used Date Smoking Tobacco: Never Assessed Sex Assigned at Date Recorded Not on file documented as of this encounter Nursing Notes Jocelyn Robin MA - 03/14/2011 12:21 PM CDT Called the pharmacy [facility] with the denial / message as too why, note complete Sandra Renteria MD - 03/14/2011 12:11 PM CDT Please see other note. I think pain medication should come from the facility that is treating her for the problem. Jocelyn Robin MA - 03/14/2011 7:53 AM CDT Note from the pharmacy patient has an appt on 03/21/11 documented in this encounter Plan of Treatment Not on filedocumented as of this encounter Visit Diagnoses Not on filedocumented in this encounter Care Teams Cold Header Relationship Specialty Start Date End Date Elizabeth Anderson MD PCP - General 09/15/02 03/17/[address] [place] [address] [place] [address] documented as of this encounter
--- OUTSIDE RECORDS SUMMARY | 2022-04-17 15:25 | XMS_ITS | Encounter Summary ---
:1980 Author Organization [facility] Address [address], [place] [address] Care Team Providers Name Role Phone Elizabeth Anderson MD Primary Care Provider Reason for Visit Reason Comments Other Encounter Details Date Type Department Care Team Description 07/02/2009 Telephone [facility] Kelly Barraza Other [address] [place], [place] [address] Social History Tobacco Use Types Packs/Day Years Used Date Smoking Tobacco: Never Assessed Sex Assigned at Date Recorded Not on file documented as of this encounter Progress Notes Kelly Barraza RN - 07/02/2009 7:09 PM CDT Phone Note filed by Kelly Barraza RN at 12/23/10 8815 Author: Kelly Barraza RN Service: (none) Author Type: (none) Filed: 12/23/10 9439 Note Time: 07/02/091908 Status: Signed Psychologist Military Personnel: Lisa Pandya (Physician) CLINICIAN FOLLOW-UP: none IMPRESSION: Abdominal Pain Female. SYMPTOMS: Pt states that for the last few days she has had crampy abd pain like I need to pass gas. Pt states that her abd pain is very severe, she is unable to sleep, unable to eat. She denies chest pain, but does say that the pain radiates around to her back. She denies any vomiting, no bloody, black or tarry looking bowl movements. No jaundice, no blood in urine, denies any UTI sx, no fever, no possibility of , no vagional discharge. Pt states that she has had 2 BM's today, but no relief from the pain. CARE ADVICE: Nurse advised that pt be seen in UC/ER tonight. Pt agrees. PLAN: GO TO THE EMERGENCY ROOM NOW Patient/Caller agrees with plan and denies additional questions. References Used: [facility] Adult Telephone Protocols--Abdominal Pain Female. Call Complete. *SH~THOMP~ABPAINF ~ Created on 02Jul2009 7:09pm by KELLY BARRAZA WORKER documented in this encounter Plan of Treatment Not on filedocumented as of this encounter Visit Diagnoses Not on filedocumented in this encounter Care Teams Frame Gate Mortiser Operator Relationship Specialty Start Date End Date Elizabeth Anderson MD PCP - General 09/15/02 03/17/12 [address] [address] documented as of this encounter
--- OUTSIDE RECORDS SUMMARY | 2022-04-17 15:25 | XMS_ITS | Encounter Summary ---
:1980 [facility] Address [address] [place] [address] Care Team Providers Name Role Phone Elizabeth Anderson MD Primary Care Provider Encounter Details Date Type Department Care Team Description 06/07/2011 Outside Hospital External to PATIENT E DAVE Social History Tobacco Use Types Packs/Day Years Used Date Smoking Tobacco: Never Assessed Sex Assigned at Date Recorded Not on file documented as of this encounter Progress Notes Interface, In Chrtscr And Scan - 06/17/2011 9:24 AM CDT documented in this encounter Plan of Treatment Not on filedocumented as of this encounter Visit Diagnoses Not on filedocumented in this encounter Care Teams Installer Inspector Final Relationship Specialty Start Date End Date Elizabeth Anderson MD PCP - General 09/15/02 03/17/12 [address] [facility] [place] [address] documented as of this encounter
--- OUTSIDE RECORDS SUMMARY | 2022-04-17 15:25 | XMS_ITS | Encounter Summary ---
:1980 Author Organization [facility] Address [address], [place] [address] Care Team Providers Name Role Phone Elizabeth Anderson MD Primary Care Provider Encounter Details Date Type Department Care Team Description 01/26/2009 Midlevel Provider Only [facility] Scotty Fagan MD Medicine [address] [place], [place] [phone] (Wo rk) Social History Tobacco Use Types Packs/Day Years Used Date Smoking Tobacco: Never Assessed Sex Assigned at Date Recorded Not on file documented as of this encounter Progress Notes Scotty Fagan MD - 01/26/2009 12:01 AM CDT Progress Notes signed by Scotty Fagan MD at 01/26/09 1230 Author: Scotty Fagan MD Service: (none) Author Type: Physician Filed: 12/24/10 1329 Note Time: 01/26/09 0001 Status: Signed [employer] Supervisor: Scotty Fagan MD (Physician) Failed preop appt documented in this encounter Plan of Treatment Not on filedocumented as of this encounter Visit Diagnoses Not on filedocumented in this encounter Care Teams Jig Inspector Relationship Specialty Start Date End Date Elizabeth Anderson MD PCP - General 09/15/02 03/17/12 [address] [place] [address] documented as of this encounter
--- OUTSIDE RECORDS SUMMARY | 2022-04-17 15:25 | XMS_ITS | Encounter Summary ---
:1980 [facility] Address [address] [place] [address] Care Team Providers Name Role Phone Elizabeth Anderson MD Primary Care Provider Encounter Details Date Type Department Care Team Description 02/23/2011 Office Visit [place] [facility] Sandra Renteria MD Medicine [address] [place] [address] [place], [place] [address] [phone] Social History Tobacco Use Types Packs/Day Years Used Date Smoking Tobacco: Never Assessed Sex Assigned at Date Recorded Not on file documented as of this encounter Progress Notes Sandra Renteria MD - 02/23/2011 12:01 AM CDT CHIEF COMPLAINT : Followup labs SUBJECTIVE: 30-year-old woman comes in today to followup on labs. She has a history of anemia, hemoglobin was checked at a physical one month ago was found to be low at 9.7. Endorses heavy menstrual periods. Periods last a week sometimes more. For 3 days during her menses she is changing a super plus tampon every 3 hours, occasionally soaking through to a pad. Historically, her periods have been somewhat irregular, she has been told is related to obesity. Has used oral contraceptives in the past to regulate her menses. Is using nothing currently. States periods have been regular for the last several months. Last period about 2 weeks ago. No blood in her stool. Denies being sexually active. Has also had problems with right hip pain for which she is being seen at [facility]. Had a joint injection which was not all that helpful. Has an appointment on March 03. Has increased her tramadol to 150 mg twice daily. Also wondering about getting cab rides covered for medical transportation, because of her hip pain she has trouble boarding a bus. Past medical history 1. Degenerative disc disease/chronic low back pain with possible lumbar radiculopathy on the right. 2. Status post right SI joint fusion 3. Depression, she has been off Zoloft for the last year and since stopping the medication thinks she feels better. Per prior psychiatric notes also has axis II diagnosis of borderline personality disorder. 4. Status post appendectomy 5. Obesity, she is pursuing gastric bypass. 6. history of anemia 7. On direct questioning today she endorses a history of migraines, no aura or focal neurologic symptoms. Medications: Reviewed. See Medication List in LastWord. Adverse Drug Reactions: Reviewed. See ADR list in Lastword. OBJECTIVE: Vital Signs : Weight 334 pounds; BP 122/74; pulse 64. General : Alert, in no acute distress. Labs: UPT negative. ASSESSMENT: 1. Anemia, likely secondary to menorrhagia 2. Menorrhagia 3. Right hip pain PLAN: 1. Check iron studies today. Start iron supplementation twice daily. Recheck CBC and iron studies in one month. 2. Check pelvic ultrasound. Start oral contraceptives. If pelvic ultrasound abnormal consult gynecology. 3. Advise her transportation concerns should come through the treating physician. I also explained to her that tramadol should be taken no more than 100 mg at a time no more than 4 times a day. I think further refills of this medication should go through the treating physician as well. The patient was discharged ambulatory and in stable condition. *SH~DNS~SOAP documented in this encounter Plan of Treatment Not on filedocumented as of this encounter Visit Diagnoses Not on filedocumented in this encounter Care Teams Bus And Sys Integration Senior Manager Relationship Specialty Start Date End Date Elizabeth Anderson MD PCP - General 09/15/02 03/17/12 [address] [place], [place] [id number] documented as of this encounter
--- OUTSIDE RECORDS SUMMARY | 2022-04-17 15:25 | XMS_ITS | Encounter Summary ---
:1980 Author Organization [facility] Address [address] [place] [address] Care Team Providers Name Role Phone Elizabeth Anderson MD Primary Care Provider Encounter Details Date Type Department Care Team Description 01/03/2011 PN Conversion Only CONVERSION CONVERSION Social History Tobacco Use Types Packs/Day Years Used Date Smoking Tobacco: Never Assessed Sex Assigned at Date Recorded Not on file documented as of this encounter Plan of Treatment Not on filedocumented as of this encounter Visit Diagnoses Not on filedocumented in this encounter Care Teams Public Health Professor Relationship Specialty Start Date End Date Elizabeth Anderson MD PCP - General 09/15/02 03/17/12 [address] [place] [address] documented as of this encounter
--- OUTSIDE RECORDS SUMMARY | 2022-04-17 15:25 | XMS_ITS | Encounter Summary ---
:1980 [facility] Address [address] [place] [address] Care Team Providers Name Role Phone Elizabeth Anderson MD Primary Care Provider Encounter Details Date Type Department Care Team Description 01/09/2011 PN Conversion Only CONV BANK Social History Tobacco Use Types Packs/Day Years Used Date Smoking Tobacco: Never Assessed Sex Assigned at Date Recorded Not on file documented as of this encounter Plan of Treatment Not on filedocumented as of this encounter Visit Diagnoses Not on filedocumented in this encounter Care Teams Traffic Supervisor Relationship Specialty Start Date End Date Elizabeth Anderson MD PCP - General 09/15/02 03/17/12 [address] [place] [address] documented as of this encounter
--- OUTSIDE RECORDS SUMMARY | 2022-04-17 15:25 | XMS_ITS | Encounter Summary ---
:1980 Author Organization [facility] Address [address] [place] [address] Care Team Providers Name Role Phone Elizabeth Anderson MD Primary Care Provider Encounter Details Date Type Department Care Team Description 01/10/2011 PN Conversion Only [place] [facility] Sandra Renteria, [address] [place] [address] [address] [place] [address] Social History Tobacco Use Types Packs/Day Years Used Date Smoking Tobacco: Never Assessed Sex Assigned at Date Recorded Not on file documented as of this encounter Plan of Treatment Not on filedocumented as of this encounter Procedures Procedure Name Priority Date/Time Associated Comments Diagnosis ANATOMICAL PATH Routine 01/10/2011 4:14 PM Result s for this LIQUID BASED CDT procedure are i n the results section. SEXUALLY TRANSMITTED Routine 01/10/2011 4:14 PM R esults for this DISEASE PROBE CDT procedure are in the results section. GLUCOSE Routine 01/10/2011 3:35 PM Results f or this CDT procedure are i n the results section. LIPID PANEL AND Routine 01/10/2011 3:35 PM Result s for this DIRECT LDL(IF NEEDED) CDT proced ure are in the results section. COMPLETE BLOOD Routine 01/10/2011 3:35 PM Results for this COUNT-W/DIFF CDT procedure are i n the results section. DIFFERENTIAL Routine 01/10/2011 3:35 PM Results f or this CDT procedure are i n the results section. documented in this encounter Results Sexually Transmitted Disease Probe (01/10/2011 4:14 PM CDT) Patholo gist Method Time Signature Sexually SEE TEXT HP CONVERSION Transmitted Disease Probe Comment: STDPR Sexually Transmitted Disease DNA Probe ? ORDERED BY: SANDRA RENTERIA SOURCE: Endocervical for molecular testi ng COLLECTED: ??01/10/11 16:14 ? PLATED: ? 01/10/11 16:15 Chlamydia trachomatis DNA Probe ?FINAL ? 01/11/11 11:02 Chlamydia trachomatis NEGATIVE by DNA a mplification The amplified DNA assay is cleared by [facility] [employer] for non-medicolegal diagnostic testing in [facility] adult population. Neisseria gonorrhea DNA Probe ?FINAL ? 01/11/11 11:02 Neisseria gonorrhea NEGATIVE by DNA amp lification. The amplified DNA assay is cleared by [facility] [employer] for non-medicolegal diagnostic testing in [facility] adult population. Specimen (Source) Anatomical Collection Method Collection Time Re ceived Time Location / / Volume Laterality 01/10/2011 4:14 PM CDT Sandra Renteria MD LAB_1 Performing Organization Address City/State/ZIP Code Phon e Number HP CONVERSION Pap Smear (01/10/2011 4:14 PM CDT) P athologist Signature Pap Smear SEE TEXT No normal HP CONVERSION range Comment: Final GYNECOLOGICAL CYTOLOGY REPORT Pathology #: [id number] ?Date Obta ined: 01/10/2011 ? Date Received: 01/11/2011 INTERPRETATION/RESULTS: Negative for Intraepithelial Lesion or M alignancy SPECIMEN ADEQUACY: Satisfactory for Evaluation. ??Endocervi tre cells/transformation zone component present. Verified on 01/13/2011 ??by REGAN FERRELL(ASCP) (electronic signature) CLINICAL NOTES: ?LMP: not stated. SPECIMEN TYPE: ? CERVICAL WITH REFLEX TO HPV IF CUS ?* End of Report Specimen (Source) Anatomical Collection Method Collection Time Re ceived Time Location / / Volume Laterality 01/10/2011 4:14 PM CDT Sandra Renteria MD LAB_1 Performing Organization Address [facility] Code Phon e Number HP CONVERSION (ABNORMAL) Lipid Panel and Direct LDL(If Needed) (01/10/2011 3:35 PM CDT) [facility] gist Method Time Signature Cholesterol 197 0 - 200 HP CONVERSION mg/dL Triglycerides 187 (H) 0 - 149 HP CONVERSION mg/dL HDL Cholesterol 38 (L) >39 mg/dL HP CONVERSION Cholesterol/HDL 5.2 No normal HP CONVERSION Ratio Screen range LDL Calculated 122 19 - 130 HP CONVERSION mg/dL Length Of Fast 3 No normal HP CONVERSION range Specimen (Source) Anatomical Collection Method Collection Time Re ceived Time Location / / Volume Laterality 01/10/2011 3:35 PM CDT Sandra Renteria MD LAB_1 Performing Organization Address [facility] Phon e Number HP CONVERSION GLUCOSE (01/10/2011 3:35 PM CDT) athologist Signature Lab Glucose 100 60 - 100 HP CONVERSION mg/dL Specimen (Source) Anatomical Collection Method Collection Time Re ceived Time Location / / Volume Laterality 01/10/2011 3:35 PM CDT Sandra Renteria MD LAB_1 Performing Organization Address [facility] Phon e Number HP CONVERSION Differential (01/10/2011 3:35 PM CDT) P athologist Signature Absolute 5.5 1.8 - 8.0 HP CONVERSION Neutrophils k/cmm Absolute 2.8 1.1 - 4.0 HP CONVERSION Lymphocytes k/cmm Absolute 0.6 0.2 - 0.8 HP CONVERSION Monocytes k/cmm Absolute 0.2 0.0 - 0.5 HP CONVERSION Eosinophils k/cmm Absolute 0.1 0.0 - 0.2 HP CONVERSION Basophils k/cmm Specimen (Source) Anatomical Collection Method Collection Time Re ceived Time Location / / Volume Laterality 01/10/2011 3:35 PM CDT Sandra Renteria MD LAB_1 Performing Organization Address City/State/ZIP Code Phon e Number HP CONVERSION (ABNORMAL) Hemogram/Plts/Diff (01/10/2011 3:35 PM CDT) [facility] gist Method Time Signature White Blood Cell 9.1 3.8 - HP CONVERSION Count 11.0 k/cmm Red Blood Cell 4.17 3.70 - HP CONVERSION Count 5.20 m/cmm Hemoglobin 9.4 (L) 11.8 - HP CONVERSION 15.5 g/dL Hematocrit 29.8 (L) 35.0 - HP CONVERSION 46.0 % Mean Corpuscular 71.6 (L) 80.0 - HP CONVERSION Volume 100.0 fL RDW 16.1 (H) 11.0 - HP CONVERSION 15.0 % Platelet Count 410 140 - 450 HP CONVERSION k/cmm Specimen (Source) Anatomical Collection Method Collection Time Re ceived Time Location / / Volume Laterality 01/10/2011 3:35 PM CDT Sandra Renteria MD LAB_1 Performing Organization Address City/[facility] Phon e Number HP CONVERSION documented in this encounter Visit Diagnoses Not on filedocumented in this encounter Care Teams Nutrient Management Specialist Relationship Specialty Start Date End Date Elizabeth Anderson MD PCP - General 09/15/02 03/17/12 [address] [place] [address] documented as of this encounter
--- OUTSIDE RECORDS SUMMARY | 2022-04-17 15:26 | XMS_ITS | Encounter Summary ---
:1980 Author Organization [employer] Address [address] [place] [address] Care Team Providers Name Role Phone Unavailable Primary Care Provider Unavailable Encounter Details Date Type Department Care Team Description 01/13/1997 Office Visit Sofia Rader, SLED MAKER, DISTRIBUTION SYSTEM OPERATOR [address] [place] [address] (Wo rk) Social History Tobacco Use Types Packs/Day Years Used Date Smoking Tobacco: Never Assessed Sex Assigned at Date Recorded Not on file documented as of this encounter Progress Notes Kim Rader - 01/13/1997 12:00 AM CDTS: Lennie is a 16 year old, here with her mom, with complaint of back pain and concerns about her weight. Prior to the interview, Lennie stated that she was perfectly comfortable talking about the problems with her mom in the room. Lennie states that she has had back pain on the lower right side, just below her waist, without radiation. It has been present for several months. She was seen in clinic with the same problem. She has been using Ibuprofen 800 mg up to 3 times a day prn; states that it helps while she takes it, but when the Ibuprofen wears off the pain recurs. She was instructed on exercises and is not doing them at this time. Lennie denies any weakness in her legs, has no difficulty walking, and has never had a sensation of her legs giving out on her. She denies numbness and tingling. Lennie goes on to state that she is becoming very frustrated with her weight. She feels as though it continues to climb. Lennie admits that she's had a weight problem all of her life, since age 12 it has become very bothersome to her. She has a history of chemical abuse; states that when she was using, the drugs decreased her appetite, and she did lose some weight, but nothing that stayed off. She states her lowest weight has been approximately 50 pounds less than what she is today and that she was able to maintain that for a 6-month period after coming out of treatment. Since that time her weight has gradually increased. She has never been in any organized program around weight loss, and has never been on any specific diet. She has tried to monitor eating and follow better eating habits intermittently, but nothing she's been able to stick to for more than a week or two. She also has tried exercising, but generally gives up after a matter of a few weeks because she sees no results. Lennie states that when she's staying with her mom and eating, she tends to be better about maintaining a balanced diet. Recently she has been eating out with her boyfriend more often and finds that she chooses foods that are not necessarily good for her. She does attribute that to part of her weight gain. Lennie also has a history of depression. Mom states that her depressive symptoms have been improving. Lennie admits to sleeping approximately 7 to 8 hours a night, does have difficulty getting to sleep, but once she's asleep she sleeps throughout the night. She doesn't feel her appetite is significantly affected by her mood. Lennie has been treated in the past with antidepressants; she was given a prescription for Sertraline in August of 1996, but she never took it. She is very clear on her desire to stay off of antidepressants. She also adds that she feels less depressed and is getting better. (continued) She is currently on no medications, has no known medication allergies. O: Lennie is in no acute distress, height 5'10, weight 295, BP 110/72, temp 98.4, pulse 78, respirations 18. Skin is warm and dry, DTR's are 2+/4 in lower extremities. Resisted strength is 4/4, palpation along her back reveals tenderness superior to her right iliac crest, with no SI joint tenderness; negative straight leg raises. She can balance on each foot independently and [id number] walk without difficulty. Lennie's affect is flat during our conversation. She maintains little eye contact. A: Continuing back pain and obesity. History of depression. P: Lennie and I discussed various treatments for her depression; I encouraged her to reconsider antidepressants as they may offer her a leveling out of her mood and assist her with setting goals toward weight loss. We reviewed treatment of low back pain; I stressed to her the importance of stretching exercises and that they need to be done on a daily basis. Weight loss is also important in reducing the incidence of her back pain. She was given the Rx for Ibuprofen, 800 mg, to take one Q 8 hours prn with food; she will use ice to the area of tenderness on a prn basis as well. Lennie was given a number for [facility] regarding consultation for weight loss. She was given information on weight loss as well as copies of the 12 and 1500 calorie diets. I encouraged her to keep a diet diary and review what she's eating to look at choices for eating, and to try to maintain more control over what she eats, and this may include avoiding fast food restaurants. She'll begin exercising; I encouraged her to start slow and to gradually build up exercise including aerobic to a total of 20-30 minutes 2-3 times a week, but that her goal of total activity should be approximately one hour per day. I encouraged her to follow up in one month for re-evaluation of her weight loss program as well as depression. cc: documented in this encounter Plan of Treatment Not on filedocumented as of this encounter Visit Diagnoses Not on filedocumented in this encounter
--- OUTSIDE RECORDS SUMMARY | 2022-04-17 15:26 | XMS_ITS | Encounter Summary ---
:1980 Author Organization [facility] Address [address] [place] [address] Care Team Providers Name Role Phone Elizabeth Anderson MD Primary Care Provider Encounter Details Date Type Department Care Team Description 05/04/2007 PN Conversion Only [place] [facility] [place] [address] [place] [address] Social History Tobacco Use Types Packs/Day Years Used Date Smoking Tobacco: Never Assessed Sex Assigned at Date Recorded Not on file documented as of this encounter Plan of Treatment Not on filedocumented as of this encounter Visit Diagnoses Not on filedocumented in this encounter Care Teams Cook Pie Relationship Specialty Start Date End Date Elizabeth Anderson MD PCP - General 09/15/02 03/17/12 [address] [place] [address] documented as of this encounter
--- OUTSIDE RECORDS SUMMARY | 2022-04-17 15:26 | XMS_ITS | Encounter Summary ---
:1980 Author Organization [facility] Address [address], [place] [address] Care Team Providers Name Role Phone Elizabeth Anderson MD Primary Care Provider Reason for Visit Reason Comments Other Encounter Details Date Type Department Care Team Description 10/16/2007 Telephone [facility] Jocelyn Robin [address] [place], [place] [address] Social History Tobacco Use Types Packs/Day Years Used Date Smoking Tobacco: Never Assessed Sex Assigned at Date Recorded Not on file documented as of this encounter Progress Notes Center, Message - 10/16/2007 12:40 PM CST Phone Note filed by SunnyBump at 12/21/10 1423 Author: SunnyBump Service: (none) Author Type: (none) Filed: 12/21/103 Note Time: 10/16/07 1240 Status: Signed Typing Section Chief: SunnyBump Referral/Consult Caller Name/Relationship:Pt Primary Food Sales Clerk:Yanet What referral is needed? PT Why is referral needed? lower back What is needed from us?referral Appointment already scheduled? no When/With whom/Where? Insurance Carrier: Member ID: Collar Trimmer:Pt Best call back number:[phone] Is it ok to leave a confidential message on this voicemail? Y *[email or web address] Created on 16Oct2007 12:40pm by MATT HOLDER R On 16Oct2007 12:47pm JOCELYN ROBIN wrote: Patient id requesting a referral for physical therapy for lower back pain did you want me to start this On 16Oct2007 12:52pm VALERIE ISLAS wrote: ok, put it in my box. thx. Acknowledged by VALERIE ISLAS on 12:52pm On 16Oct2007 1:30pm JOCELYN ROBIN wrote: Referral in box to sign On 16Oct2007 2:59pm JOCELYN ROBIN wrote: Called the patient with the message that her referral for therapy has been sent down will close note Acknowledged by JOCELYN ROBIN on 2:59pm EGE INTERN documented in this encounter Plan of Treatment Not on filedocumented as of this encounter Visit Diagnoses Not on filedocumented in this encounter Care Teams Engine Generator Assembler Relationship Specialty Start Date End Date Elizabeth Anderson MD PCP - General 09/15/02 03/17/[address] [place] [address] [place] [address] documented as of this encounter
--- OUTSIDE RECORDS SUMMARY | 2022-04-17 15:26 | XMS_ITS | Encounter Summary ---
:1980 Author [facility] Address [address] [place] [address] Care Team Providers Name Role Phone Unavailable Primary Care Provider Unavailable Encounter Details Date Type Department Care Team Description 08/04/1996 Office Visit Cesar Fleming Jr., MD [facility] [address] [place], [place] [id number] (Wo rk) Social History Tobacco Use Types Packs/Day Years Used Date Smoking Tobacco: Never Assessed Sex Assigned at Date Recorded Not on file documented as of this encounter Progress Notes Cesar Fleming Jr. - 08/04/1996 12:00 AM CSTS: #1: Right low back pain. For about two months this 16-year-old has had pain along the superior iliac crest on the right side of her low back. No radiation elsewhere. The pain is worse when she stands up for a long time. or walks for a long time. No history of trauma. O: She is tender along the superior iliac crest posteriorly. Active and passive straight leg raising normal. Normal knee jerks and ankle jerks. A: Soft tissue inflammation. Probably traumatic in origin, although there is no history of this. P: Explained the nature of the problem and advised her that this will subside. Also told her that the pain is probably exacerbated by her depression. Recommended Ibuprofen, 800 mg Q 8 hours regularly. #2: Depression. 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 She was arrested and eventually hospitalized at age 13. Has now been free of alcohol for 17 months. Attends a special school in [place] called [employer]. Has had trouble with depression on and off for the past three years. Several months ago she was prescribed Sertraline at [facility], but she has not been taking it. Today she acknowledges fatigue, anhedonia, feeling depressed, difficulty with memory. O: Limited eye contact. Appears tired. P: Begin again Sertraline as 25 mg nightly for three nights, then 50 mg nightly. Follow up in one month. #3: Weight gain. S: She comes today with her mother, and both of them note that she has gained a great deal of weight over the past year or so. They wonder whether she is hypothyroid. P: Check T4, T3 uptake, TSH today. I told them both that overeating associated with a depression might be the cause of the problem also. We shall go into this further when she returns. cc: ESSOR OF FORESTRY documented in this encounter Plan of Treatment Not on filedocumented as of this encounter Visit Diagnoses Not on filedocumented in this encounter
--- OUTSIDE RECORDS SUMMARY | 2022-04-17 15:26 | XMS_ITS | Encounter Summary ---
:1980 Author Organization [facility] Address [address] [place] [address] Care Team Providers Name Role Phone Elizabeth Anderson MD Primary Care Provider Encounter Details Date Type Department Care Team Description 06/06/2007 Health Commissioner Only CONVERSION CONVERSION Rosales Negro MD [address] [place] [address] (Wo rk) Social History Tobacco Use Types Packs/Day Years Used Date Smoking Tobacco: Never Assessed Sex Assigned at Date Recorded Not on file documented as of this encounter Progress Notes Rosales Negro MD - 06/06/2007 12:01 AM CDT Progress Notes signed by Rosales Negro MD at 06/06/07 1456 Author: Rosales Negro MD Service: (none) Author Type: Physician Filed: 12/23/10 2208 Note Time: 06/06/07 0001 Status: Signed Geophysical Data Technician: Rosales Negro MD (Physician) patient failed to appear for medication management appointment. 1st letter sent. no charge. documented in this encounter Plan of Treatment Not on filedocumented as of this encounter Visit Diagnoses Not on filedocumented in this encounter Care Teams Busher Helper Relationship Specialty Start Date End Date Elizabeth Anderson MD PCP - General 09/15/02 03/17/12 [address] [place] [address] documented as of this encounter
--- OUTSIDE RECORDS SUMMARY | 2022-04-17 15:26 | XMS_ITS | Encounter Summary ---
:1980 Author [facility] Address [address] [place] [address] Care Team Providers Name Role Phone Elizabeth Anderson MD Primary Care Provider Encounter Details Date Type Department Care Team Description 09/16/2002 Office Visit [facility] SAMEER Anderson; Medicine MD Elizabeth TOBACCO USE DISORDER [address] [facility] [place], [place] [address] [place], [place] [phone] [id number] Social History Tobacco Use Types Packs/Day Years Used Date Smoking Tobacco: Never Assessed Sex Assigned at Date Recorded Not on file documented as of this encounter Last Filed Vital Signs Vital Sign Reading Time Taken Comments Blood Pressure 110/74 09/16/2002 2:00 PM STOP ATTACHER Pulse 76 09/16/2002 2:00 PM STOP ATTACHER Temperature 37 ??C (98.6 ??F) 09/16/2002 2:00 PM STOP ATTACHER Respiratory Rate - - Oxygen Saturation - - Inhaled Oxygen Concentration - - Weight 105.7 kg (233 lb) 09/16/2002 2:00 PM STOP ATTACHER Height - - Body Mass Index - - documented in this encounter Progress Notes 09/16/2002 2:00 PM STOP ATTACHER Lennie Bolandasmitaannemarie is here today for COLD SYMPTOMS X 5 DAYS, SORE THROAT X 3 DAYS,. No current prescriptions on file. Review of patient's allergies indicates no known allergies. BP 110/74 Pulse 76 Temp 98.6 Wt 233 lbs (105.688 kg) Are you having other pain today, that you want to discuss with the provider? -{PAIN YES/NO:98381} Preventive Services up to date? -YES Immunizations up to date? -YES Do you ever feel physically threatened or emotionally afraid? -NO Tobacco Status? -CURRENT. Tobacco used:Cigarettes, PPD 1/2. Interested in quitting? YES child attendant offered? -NOT APPLICABLE. Aspirin taken daily? -NO BP was taken on the RIGHT arm. Large cuff used? -YES Health Education given? -YES. Contact phone number [phone](home) (work), alternate phone number . Radha Haskins LPN 09/16/2002 2:14 PM Elizabeth Anderson - 09/16/2002 12:00 AM CSTSUBJECTIVE: The patient is here for swollen glands and a sore throat. This patient comes in today with a 3-day history of a sore throat, which has progressively gotten worse to the point that she cannot swallow food. She is able to swallow liquids but she has severe pain. She has also noticed left-sided swelling in the neck, which is progressively increasing. She did have a low-grade fever with some chills. She has had significant drainage, both nasally and postnasally. She denies any similar illness in family members. She does smoke. She has a history of allergies and asthma. She has no medication allergies. OBJECTIVE: Her weight is 233 pounds. Her temperature is 98.6 F. Her blood pressure is 110/74. Her pulse is 76. She is in no acute distress. Pupils are equal and reactive. Extraocular muscles are intact. There is no nystagmus and no nasal discharge. Throat shows erythema with significant swelling of the left tonsil that is extending into the peritonsillar area and moving the tonsil so that the tonsil is much more prominent than on the right. The right tonsil is also showing some swelling. There is significant submandibular lymphadenopathy and cervical lymphadenopathy on the left side, which is tender, but not fluctuant. There is no warmth elicited over the area. There is no tenderness on percussion. Chest is clear. Heart shows regular rate and rhythm without murmur. There is no pedal edema, cyanosis, or calf tenderness. A rapid strep screen is negative. Culture is pending. ASSESSMENT: Tonsillitis. PLAN: I will treat her with amoxicillin 500 t.i.d., ibuprofen 800 t.i.d., and saltwater gargles. She is to take multivitamins and increase her fluid intake. She will call if she is not improved. IN SUMMARY: Tonsillitis cc: ATTACHER documented in this encounter Plan of Treatment Not on filedocumented as of this encounter Visit Diagnoses Diagnosis Acute tonsillitis Tobacco use disorder (HRC) Tobacco use disorder documented in this encounter Care Teams Industrial Safety And Health Manager Relationship Specialty Start Date End Date Elizabeth Anderson MD PCP - General 09/15/02 03/17/12 [address] [place] [address] documented as of this encounter
--- OUTSIDE RECORDS SUMMARY | 2022-04-17 15:26 | XMS_ITS | Encounter Summary ---
:1980 Author Organization [facility] Address [address] [place] [address] Care Team Providers Name Role Phone Elizabeth Anderson MD Primary Care Provider Encounter Details Date Type Department Care Team Description 09/03/1989 PN Conversion Only BLEACHING SUPERVISOR [address] [place] [address] Social History Tobacco Use Types Packs/Day Years Used Date Smoking Tobacco: Never Assessed Sex Assigned at Date Recorded Not on file documented as of this encounter Plan of Treatment Not on filedocumented as of this encounter Visit Diagnoses Not on filedocumented in this encounter Care Teams Tail Worker Relationship Specialty Start Date End Date Elizabeth Anderson MD PCP - General 09/15/02 03/17/12 [address] [place] [address] documented as of this encounter
--- OUTSIDE RECORDS SUMMARY | 2022-04-17 15:26 | XMS_ITS | Encounter Summary ---
:1980 Author Organization [facility] Address [address] [place] [address] Care Team Providers Name Role Phone Unavailable Primary Care Provider Unavailable Encounter Details Date Type Department Care Team Description 06/26/1997 Office Visit Sofia Rader, MINE CAPTAIN, [employer] [address] [place] [address] (Wo rk) Social History Tobacco Use Types Packs/Day Years Used Date Smoking Tobacco: Never Assessed Sex Assigned at Date Recorded Not on file documented as of this encounter Progress Notes Kim Rader - 06/26/1997 12:00 AM CDTS: Lennie is an 17-year-old female here with complaint of left ear pain radiating into her neck, and she has a sore throat. She denies any fever or chills. She does state that she was sick several weeks ago and felt that she might have had a low grade fever but it went away without treatment. She complains of nausea at times. No headache. She denies any nasal discharge. Lennie continues to smoke. She denies any alcohol use. O: Lennie is in no acute distress. Weight 288 pounds. Temp 98.2. BP 120/80. Eyes are clear without discharge. TM's are street bilaterally with cone of light and landmarks are visible, no narrowing of the canal, and there is no tragal or pain with movement of the auricle bilaterally. Pharynx is minimally erythematous, no exudate. Left tonsil is 3+, right tonsil is 2+. Rapid strep screen is negative. Neck is supple without adenopathy. No pain with palpation along the upper neck and ridge of shoulders. (CONT. NEXT PAGE) A: Otalgia. Neck pain. P: Lennie was encouraged to warm moist compresses on her neck and to stretch. She will follow up if she develops fever, sore throat, or worsening symptoms. She was reassured that these symptoms should resolve. She can certainly use otc analgesics such as acetaminophen or ibuprofen as needed for pain. cc: documented in this encounter Plan of Treatment Not on filedocumented as of this encounter Visit Diagnoses Not on filedocumented in this encounter
--- OUTSIDE RECORDS SUMMARY | 2022-04-17 15:26 | XMS_ITS | Encounter Summary ---
:1980 Author Organization [facility] Address [address] [place] [address] Care Team Providers Name Role Phone Elizabeth Anderson MD Primary Care Provider Reason for Visit Reason Comments CONGESTION, LUNG Encounter Details Date Type Department Care Team Description 11/05/2002 Telephone Careline Darlene Casey RN CONGESTION, LUNG [address] [place], [place] [address] Social History Tobacco Use Types Packs/Day Years Used Date Smoking Tobacco: Never Assessed Sex Assigned at Date Recorded Not on file documented as of this encounter Nursing Notes 11/05/2002 11:59 PM HAM SMOKER >> DARLENE CASEY SunNov 05, 2002 12:29 PM >> CALL RECEIVED. Contact: TRIAGE REFERENCE: COLD, COMMON (VURI) - ADULT CNG (c) 2001 STAT SYMPTOMS: None per guideline Mom is calling states she is concerned that lennie should be seen b ut lennie dosn't feel that symptoms warrent being seen yet. ASSESSMENT: Respiratory changes: diffuclty breathing when coughing , cough: Dry,non productive hurts in the ches t when she coughs sneezing: no. Head, nasal, upper airway congestion: yes. Fever: NO. (low grade less than 102 degrees F for the first 2-3 days is normal) Sore throat: not present, ear pain: NO. Duration of symptoms: started yesterday, symptoms are: Varied. Complicating factors: none. PMH: Healthy. CURRENT MEDICATIONS: NO. MEDICATION ALLERGIES: NO. HOME TREATMENT: Discussed per guideline Increase fluids to help keep mucous more liquid Rest Humidity at bedside (empty and clean daily) ASA, Acetaminophen, Ibuprofen for high Fever, muscle aches (Note ASA and ibuprofen should not be used if patient has history of peptic ulcer or related disease, ASA sensitive asthma or renal dysfunction) to be treated Decongestants-Sudafed (avoid if hx of hypertension that is not well controlled Cough-Robitussin, Robitussin DM Call back if new symptoms develop, symptoms worsen after 3-5 days or persist for longer than 14 days. . PLAN: Home treat & monitor symptoms, call back if they increase or if concerns documented in this encounter Plan of Treatment Not on filedocumented as of this encounter Visit Diagnoses Not on filedocumented in this encounter Care Teams Lode Miner Relationship Specialty Start Date End Date Elizabeth Anderson MD PCP - General 09/15/02 03/17/12 [address] [place] [address] documented as of this encounter
--- OUTSIDE RECORDS SUMMARY | 2022-04-17 15:26 | XMS_ITS | Encounter Summary ---
:1980 Author Organization [facility] Address [address] [place] [address] Care Team Providers Name Role Phone Unavailable Primary Care Provider Unavailable Encounter Details Date Type Department Care Team Description 06/26/1997 Notes/Orders Sofia Rader APRN, IMANI [address] [address] (Wo rk) Social History Tobacco Use Types Packs/Day Years Used Date Smoking Tobacco: Never Assessed Sex Assigned at Date Recorded Not on file documented as of this encounter Plan of Treatment Not on filedocumented as of this encounter Procedures Procedure Name Priority Date/Time Associated Diagnosis Comme nts STREP GRP A, RAPID Waiting 06/26/1997 10:42 AM Re sults for this SCREEN CDT procedure are i n the results section. documented in this encounter Results RAPID, GPA STREP SCREEN (WAITING) (06/26/1997 10:42 AM CDT) [facility] gist Method Time Signature Patient Home [id number] PingMD Phone # Patient Work None [facility] Phone # Grp A Rapid Negative [facility] Screen Grp A Culture Negative [facility] Final Specimen Anatomical Collection Method Collection Time Receive d Time (Source) Location / / Volume Laterality 06/26/1997 10:42 06/26/1997 AM CDT 10:43 AM CDT Kim Rader APRN, CNP LAB_1 Performing Organization Address City/State/ZIP Code Phon e Number [facility] [phone] [place] [id number] [address] [address] documented in this encounter Visit Diagnoses Not on filedocumented in this encounter
--- OUTSIDE RECORDS SUMMARY | 2022-04-17 15:26 | XMS_ITS | Encounter Summary ---
:1980 Author Organization [facility] Address [address] [place] [address] Care Team Providers Name Role Phone Elizabeth Anderson MD Primary Care Provider Encounter Details Date Type Department Care Team Description 07/18/2007 PN Conversion Only [facility] [address] [place] [address] Social History Tobacco Use Types Packs/Day Years Used Date Smoking Tobacco: Never Assessed Sex Assigned at Date Recorded Not on file documented as of this encounter Plan of Treatment Not on filedocumented as of this encounter Visit Diagnoses Not on filedocumented in this encounter Care Teams Mechanical Supervisor Relationship Specialty Start Date End Date Elizabeth Anderson MD PCP - General 09/15/02 03/17/12 [address] [place] [address] documented as of this encounter
--- OUTSIDE RECORDS SUMMARY | 2022-04-17 15:26 | XMS_ITS | Encounter Summary ---
:1980 Author Organization [facility] Address [address] [address] Care Team Providers Name Role Phone Elizabeth Anderson MD Primary Care Provider Encounter Details Date Type Department Care Team Description 07/23/2007 Office Visit [facility] Judith Guadarrama, PT Therapy [address] [facility] [place] [address] [place], [place] [address] [phone] Social History Tobacco Use Types Packs/Day Years Used Date Smoking Tobacco: Never Assessed Sex Assigned at Date Recorded Not on file documented as of this encounter Last Filed Vital Signs Vital Sign Reading Time Taken Comments Blood Pressure 122/70 07/23/2007 1:55 PM DISPLAY CARVER Pulse 84 07/23/2007 1:55 PM DISPLAY CARVER Temperature - - Respiratory Rate - - Oxygen Saturation - - Inhaled Oxygen Concentration - - Weight 134.3 kg (295 lb 15.8 07/23/2007 1:55 PM C: 134. 3kg oz) DISPLAY CARVER Height - - Body Mass Index - - documented in this encounter Plan of Treatment Not on filedocumented as of this encounter Visit Diagnoses Not on filedocumented in this encounter Care Teams Eeg Tech Relationship Specialty Start Date End Date Elizabeth Anderson MD PCP - General 09/15/02 03/17/12 [address] [place], [place] [id number] documented as of this encounter
--- OUTSIDE RECORDS SUMMARY | 2022-04-17 15:26 | XMS_ITS | Encounter Summary ---
:1980 Author Organization [facility] Address [address], [place] [address] Care Team Providers Name Role Phone Elizabeth Anderson MD Primary Care Provider Encounter Details Date Type Department Care Team Description 07/23/2007 Office Visit [facility] Mary Holt MD [facility] [address] [place], [place] [address] [place], [place] [address] (Wo rk) Social History Tobacco Use Types Packs/Day Years Used Date Smoking Tobacco: Never Assessed Sex Assigned at Date Recorded Not on file documented as of this encounter Progress Notes Viktoria Holt MD - 07/23/2007 12:01 AM CST Progress Notes signed by Viktoria Holt MD at 08/07/07 1016 Author: Viktoria Holt MD Service: (none) Author Type: Physician Filed: 12/23/10 2310 Note Time: 07/23/07 0001 Status: Signed Nurses Director: Viktoria Holt MD (Physician) NAME: LENNIE SAL MR#: [id number] ACCT: [id number] VISIT: [id number] DICTATING CLINICIAN: Viktoria Holt MD JOB: [id number] LOC: 306 CLINIC PROGRESS NOTE DATE OF VISIT: 07/23/2007 SUBJECTIVE: : 1980. Ms. Sal is a 27-year-old female, new patient to Internal Medicine with 2 years of low back pain that has become progressively more severe. It started when she tried to move a heavy television. Saw a doctor at that point and was told it was muscular, had 1 PT visit which was not helpful. The pain is in the right low back and is essentially constant but varies in severity. Has occasional episodes where the pain is quite severe and shooting and all of her muscles tighten up. Intermittently, not very commonly, she does have radiation down both legs to the knees. Also occasional paresthesia sensation in the low back and thighs. No loss of bowel or bladder control. Ibuprofen seems to be helpful but acetaminophen is not. Is morbidly obese and had intermittent mild low back symptoms previously but the T.V. episode was next. PMH: Saw Dr. Negro for depression. MEDICATIONS: BuSpar and Zoloft, see LastWord for doses. OBJECTIVE: VS: BP: 122/70. P: 84. Wt: 296. GENERAL: She is a comfortable, NAD. Range of motion is quite restricted with forward flexion, she can not bend more than about 45 degrees. Can extend and move her back in all other directions without a problem. There is focal tenderness to palpation in the right low back but not along the spine. Straight leg raise produces pain just with the right leg at about 60 degrees. No problem on the left. Strength is intact and symmetric. Reflexes are 1+ and symmetric. She is able to walk tandem and on her heels and toes and has a normal gait. ASSESSMENT: 1. Low back pain, probably muscular but does have occasional symptoms suggesting radiculopathy. PLAN: Would start with physical therapy, referral given. Ibuprofen 800 t.i.d., Rx sent. In 1 month if symptoms are not improving, because of the radicular symptoms would proceed with an MRI. I do not think a plain film would be very helpful in this setting. DMO:[id number] C: 07/24/07 10:49 DOCUMENT: [id number] RING COOK documented in this encounter Plan of Treatment Not on filedocumented as of this encounter Visit Diagnoses Not on filedocumented in this encounter Care Teams Bilingual Speech Language Pathologist Relationship Specialty Start Date End Date Elizabeth Anderson MD PCP - General 09/15/02 03/17/12 [address] [place] [address] documented as of this encounter
--- OUTSIDE RECORDS SUMMARY | 2022-04-17 15:26 | XMS_ITS | Encounter Summary ---
:1980 Author Organization [facility] Address [address] [address] Care Team Providers Name Role Phone Elizabeth Anderson MD Primary Care Provider Encounter Details Date Type Department Care Team Description 06/19/2007 Electromechanical Engineer Only [place] [facility] Erlinda Szymanski, Medicine [facility]SH[facility], IMANI [address] [facility] [place] [address] [place], [place] [phone] [address] (Wo rk) Social History Tobacco Use Types Packs/Day Years Used Date Smoking Tobacco: Never Assessed Sex Assigned at Date Recorded Not on file documented as of this encounter Progress Notes Erlinda Szymanski - 06/19/2007 12:01 AM CDT Progress Notes signed by Erlinda Szymanski APRN, IMANI at 06/19/07 1031 Author: BRANDON Dominguez Service: (none) Author Type: Nurse Practitioner Filed: 12/23/10 2224 Note Time: 06/19/07 0001 Status: Signed Aircraft Dispatcher: BRANDON Dominguez (Nurse Practitioner) Patient did not keep this appt. today. documented in this encounter Plan of Treatment Not on filedocumented as of this encounter Visit Diagnoses Not on filedocumented in this encounter Care Teams Cake Inspector Relationship Specialty Start Date End Date Elizabeth Anderson MD PCP - General 09/15/02 03/17/12 [address] [place] [address] documented as of this encounter
--- OUTSIDE RECORDS SUMMARY | 2022-04-17 15:26 | XMS_ITS | Encounter Summary ---
:1980 Author Organization [facility] Address [address] [place] [address] Care Team Providers Name Role Phone Elizabeth Anderson MD Primary Care Provider Encounter Details Date Type Department Care Team Description 09/16/2002 Orders Only [facility] Elizabeth Anderson, [address] [place], [place] [address] [facility] [phone] [place], [place] [address] (Wo rk) Social History Tobacco Use Types Packs/Day Years Used Date Smoking Tobacco: Never Assessed Sex Assigned at Date Recorded Not on file documented as of this encounter Plan of Treatment Not on filedocumented as of this encounter Procedures Procedure Name Priority Date/Time Associated Diagnosis Comme nts STREP GRP A, RAPID Waiting 09/16/2002 2:23 PM Res ults for this SCREEN TECHNICAL SALES REPRESENTATIVE procedure are i n the results section. documented in this encounter Results RAPID, GPA STREP SCREEN (WAITI (09/16/2002 2:23 PM TECHNICAL SALES REPRESENTATIVE) [facility] Method Time Signature Patient Home None [facility] Phone # Patient Work None [facility] Phone # Grp A Rapid Negative [facility] Screen Grp A Culture Negative [facility] Final Specimen Anatomical Collection Method Collection Time Receive d Time (Source) Location / / Volume Laterality 09/16/2002 2:23 PM 3 2:24 TECHNICAL SALES REPRESENTATIVE PM TECHNICAL SALES REPRESENTATIVE Elizabeth Anderson MD LAB_1 Performing Organization Address City/State/ZIP Code Phon e Number [facility] [phone] [facility] [address] [phone] documented in this encounter Visit Diagnoses Not on filedocumented in this encounter Care Teams Regulatory Affairs Internship Relationship Specialty Start Date End Date Elizabeth Anderson MD PCP - General 09/15/02 03/17/12 [address] [place] [address] documented as of this encounter
--- OUTSIDE RECORDS SUMMARY | 2022-04-17 15:26 | XMS_ITS | Encounter Summary ---
:1980 Author Organization [facility] Address [address] [place] [address] Care Team Providers Name Role Phone Elizabeth Anderson MD Primary Care Provider Reason for Visit Reason Comments YOKO ROYAL MD Encounter Details Date Type Department Care Team Description 09/15/2002 Telephone Careline Darlene Casey RN SORE THROAT, MD [address] [place], [place] [address] Social History Tobacco Use Types Packs/Day Years Used Date Smoking Tobacco: Never Assessed Sex Assigned at Date Recorded Not on file documented as of this encounter Nursing Notes 09/15/2002 11:59 PM MORTGAGE BRANCH MANAGER Addended by: ISAAC LAMBERT on: 09/15/2002,7:27 PM Modules accepted: Progress Notes, Disposition T NIKIA REFERENCE: SORE THROAT - ADULT CNG (c) 2001 CONCERN: sore throat. STAT SYMPTOMS None per guide line. ASSESSMENT: Onset was gradual, duration is 2-3 days. Dysphagia is not present. Assessment: thr oat pain is moderate and fever none,has white spot. PMH healthy. HOME TREATMENT: Discussed per ernie garay: Rest. Increased fluids (up to 3 quarts daily unless otherwise contraindicated). Salt water gar gles: 1/4 tsp salt in 8 oz water q 2 hrs. Humidity. TC.. PLAN: offered UC appt,declined,will be seen in day clinic in am >> DARLENE CASEY SunSep 15, 2002 7:09 PM >> COMPLETED ON SunSep 15, 2002 7:19 PM TRIAGE REFERENCE: SORE THROAT - ADULT CNG (c) 2001 CONCERN: lennie is callin g states she no longer has insurance but wants to know if she needs to be seen. States she has had a sore throat for a couple of days but it is now getting worse and feels moreswollen. PLAN: call was put on hold b4 further information could be obtained and call was disconnected br Darlene Casey RN could continue call. >> CALL RECEIVED. Contact: documented in this encounter Plan of Treatment Not on filedocumented as of this encounter Visit Diagnoses Not on filedocumented in this encounter Care Teams Tooling Inspector Relationship Specialty Start Date End Date Elizabeth Anderson MD PCP - General 09/15/02 03/17/12 [address] [place] [address] documented as of this encounter
--- OUTSIDE RECORDS SUMMARY | 2022-04-17 15:26 | XMS_ITS | Encounter Summary ---
:1980 Author Organization [facility] Address [address], [place] [address] Care Team Providers Name Role Phone Elizabeth Anderson MD Primary Care Provider Encounter Details Date Type Department Care Team Description 11/11/2002 Office Visit [facility] Internal Tess Lind, ACUTE TONSILLITIS Medicine CLINICAL RESEARCH MANAGER, RETAIL PRESENTATION SPECIALIST [address] [facility] [address] [place] [address] [place] [address] [phone] (Wo rk) Social History Tobacco Use Types Packs/Day Years Used Date Smoking Tobacco: Never Assessed Sex Assigned at Date Recorded Not on file documented as of this encounter Last Filed Vital Signs Vital Sign Reading Time Taken Comments Blood Pressure 114/60 11/11/2002 3:40 PM ROUTE AIDE Pulse 100 11/11/2002 3:40 PM ROUTE AIDE Temperature 37.5 ??C (99.5 ??F) 11/11/2002 3:40 PM ROUTE AIDE Respiratory Rate - - Oxygen Saturation - - Inhaled Oxygen Concentration - - Weight 106.1 kg (234 lb) 11/11/2002 3:40 PM ROUTE AIDE Height - - Body Mass Index - - documented in this encounter Progress Notes 11/11/2002 3:40 PM ROUTE AIDE Lennie Bolandasmitaannemarie is here today for SORE THROAT X YESTERDAY URI X 1 WEEK. Are you having other pain today, that you want to discuss with the provider? -NO Preventive Services up to date? -ADVISED TO FOLLOW UP WITH PRIMARY CARE PROVIDER Immunizations up to date? -NOT CHECKED Do you ever feel physically threatened or emotionally afraid? -NO Tobacco Status reviewed? (see History Social-Substance) -YES furnace attendant offered? -DECLINED. Aspirin taken daily? -NO BP was taken on the RIGHT arm. Large cuff used? -YES Health Education given? -NO. Contact phone number [phone] (home) [phone] (work), alternate phone number . China Reed LPN 11/11/2002 3:54 PM No current prescriptions on file. ALLERGIES Review of patient's allergies indicates no known allergies. VERBAL ORDER ROCEPHIN 250MG IM NOW /MARGE S: Lennie Sal is here for Rocephin w/ lidocaine 1% injection. O: Injection(s) given, Dose 250mg, intramuscularly in the LEFT deltoid. Lot # is [id number]. Truckload Owner Operator [facility]. A: Ordered per provider cortez lind, date of order 11/11/02. Date of last injection . Patient tolerated injection well. P: Return to clinic . China Reed LPN 4:35 PM 11/11/2002 Tess Lind - 11/11/2002 12:00 AM CSTSUBJECTIVE: The patient is here for evaluation of a sore throat. She tells me she has had upper respiratory cold type symptoms for the last week but the cough and cold symptoms are slightly better, she just has a mild cough and a little bit of nasal congestion but yesterday she developed a sore throat and today it has been just horrible. She felt feverish at home and is here for evaluation. She denies really any difficulty swallowing, she has more pain from swallowing and has been spitting out some of her mucus instead of swallowing it. OBJECTIVE: Blood pressure 114/60. Pulse 100. Temperature 99.5. Weight is 234 pounds. TMs are clear bilaterally with good light reflex. No fluid or erythema. Conjunctivae are not injected. Oropharynx reveals on the left side there is an area of erythema and swelling. Most of the swelling is in front of the anterior pillar. The actual oropharynx itself is still clear and the erythema and swelling extends up to the soft palate. The uvula is still midline. There is pus on both tonsils, the right however, is not nearly as enlarged as the left. There certainly are tender nodes all on the anterior and posterior chain on the left side. Her rapid strep today is negative. ASSESSMENT: Tonsillitis. Possible early tonsillar abscess. PLAN: I had Dr. Fuchs look at it too and he felt that because most of the swelling was on the soft palate and that the actual oropharynx was still quite clear that we could try to treat this without sending her to ENT for a drainage. I gave her a shot of Rocephin 250 mg IM in the clinic. She was monitored for 25 minutes without reactions and then gave her a prescription for erythromycin orally. I did inform that patient however, that if her symptoms worsen and she has difficulty swallowing, speaking, breathing, etc. She needs to be seen immediately in the ER. The patient verbalized understanding of this and its importance. Follow up as indicated. IN SUMMARY: EVALUATION OF SORE THROAT. cc: E AIDE Tess Lind - 11/11/2002 12:00 AM ROUTE AIDE E AIDE documented in this encounter Plan of Treatment Not on filedocumented as of this encounter Visit Diagnoses Diagnosis Acute tonsillitis documented in this encounter Care Teams Brush Finisher Relationship Specialty Start Date End Date Elizabeth Anderson MD PCP - General 09/15/02 03/17/12 [address] [place] [address] documented as of this encounter
--- OUTSIDE RECORDS SUMMARY | 2022-04-17 15:26 | XMS_ITS | Encounter Summary ---
:[address] [facility] Address [address] [place] [address] Care Team Providers Name Role Phone Unavailable Primary Care Provider Unavailable Encounter Details Date Type Department Care Team Description 06/29/1997 Notes/Orders Sofia Rader APRN, SHELLFISH WEIGHER [address] [place] [address] (Wo rk) Social History Tobacco Use Types Packs/Day Years Used Date Smoking Tobacco: Never Assessed Sex Assigned at Date Recorded Not on file documented as of this encounter Plan of Treatment Not on filedocumented as of this encounter Procedures Procedure Name Priority Date/Time Associated Diagnosis Comme nts STREP GRP A, RAPID Waiting 06/29/1997 12:11 PM Re sults for this SCREEN FOLDER STITCHER OPERATOR procedure are i n the results section. documented in this encounter Results RAPID, GPA STREP SCREEN (WAITING) (06/29/1997 12:11 PM FOLDER STITCHER OPERATOR) [facility] gist Method Time Signature Patient Home None [facility] Phone # Patient Work None [facility] Phone # Grp A Rapid Negative [facility] Screen Grp A Culture Negative [facility] Final Specimen Anatomical Collection Method Collection Time Receive d Time (Source) Location / / Volume Laterality 06/29/1997 12:11 06/29/1997 PM FOLDER STITCHER OPERATOR 12:12 PM FOLDER STITCHER OPERATOR Kim Rader APRN, SHELLFISH WEIGHER LAB_1 Performing Organization Address City/State/ZIP Code Phon e Number [facility] [phone] [facility] [address] [phone] documented in this encounter Visit Diagnoses Not on filedocumented in this encounter
--- OUTSIDE RECORDS SUMMARY | 2022-04-17 15:26 | XMS_ITS | Encounter Summary ---
:1980 Author [facility] Address [address] [place] [address] Care Team Providers Name Role Phone Elizabeth Anderson MD Primary Care Provider Encounter Details Date Type Department Care Team Description 11/11/2002 Orders Only [facility] Tess Reeder, DIRECTOR OF PSYCHIATRY, [address] [place] [address] [phone] [place], [place] [address] (Wo rk) Social History Tobacco Use Types Packs/Day Years Used Date Smoking Tobacco: Never Assessed Sex Assigned at Date Recorded Not on file documented as of this encounter Plan of Treatment Not on filedocumented as of this encounter Procedures Procedure Name Priority Date/Time Associated Diagnosis Comme nts STREP GRP A, RAPID Waiting 11/11/2002 3:50 PM Res ults for this SCREEN SURGICAL SPECIALIST procedure are i n the results section. documented in this encounter Results RAPID, GPA STREP SCREEN (WAITI (11/11/2002 3:50 PM SURGICAL SPECIALIST) [facility] Method Time Signature Patient Home [phone] [facility] Phone # Patient Work None [facility] Phone # Grp A Rapid Negative [facility] Screen Grp A Culture Negative [facility] Final Specimen Anatomical Collection Method Collection Time Receive d Time (Source) Location / / Volume Laterality 11/11/2002 3:50 PM 3 3:51 SURGICAL SPECIALIST PM SURGICAL SPECIALIST Tess Reeder APRN, CNP LAB_1 Performing Organization Address City/State/ZIP Code Phon e Number [facility] [phone] [facility] [address] [place] [phone] documented in this encounter Visit Diagnoses Not on filedocumented in this encounter Care Teams Cashier Clerk Relationship Specialty Start Date End Date Elizabeth Anderson MD PCP - General 09/15/02 03/17/[address] [place] [address] [place] [address] documented as of this encounter
--- OUTSIDE RECORDS SUMMARY | 2022-04-17 15:26 | XMS_ITS | Encounter Summary ---
:1980 Author Organization [facility] Address [address] [place] [place] [address] Care Team Providers Name Role Phone Elizabeth Anderson MD Primary Care Provider Encounter Details Date Type Department Care Team Description 07/19/2007 Quarry Plant Crusher Operator Only CONVERSION CONVERSION Rosales Negro MD [address] [address] (Wo rk) Social History Tobacco Use Types Packs/Day Years Used Date Smoking Tobacco: Never Assessed Sex Assigned at Date Recorded Not on file documented as of this encounter Progress Notes Rosales Negro MD - 07/19/2007 12:01 AM CST Progress Notes signed by Rosales Negro MD at 07/19/07 1126 Author: Rosales Negro MD Service: (none) Author Type: Physician Filed: 12/23/10 2305 Note Time: 07/19/07 0001 Status: Signed Adobe Developer: Rosales Negro MD (Physician) patient failed to appear for medication management appointment. 2nd letter sent. $50 charge. HEALTH LPN documented in this encounter Plan of Treatment Not on filedocumented as of this encounter Visit Diagnoses Not on filedocumented in this encounter Care Teams Vein Access Technician Relationship Specialty Start Date End Date Elizabeth Anderson MD PCP - General 09/15/02 03/17/12 [address] [address] documented as of this encounter
--- OUTSIDE RECORDS SUMMARY | 2022-04-17 15:26 | XMS_ITS | Encounter Summary ---
:1980 Author Organization [facility] Address [address] [place] [address] Care Team Providers Name Role Phone Unavailable Primary Care Provider Unavailable Encounter Details Date Type Department Care Team Description 12/19/1996 Office Visit Annette Dalton APRN, CN [address] [place], [place] [address] (Wo rk) Social History Tobacco Use Types Packs/Day Years Used Date Smoking Tobacco: Never Assessed Sex Assigned at Date Recorded Not on file documented as of this encounter Progress Notes Annette Dalton - 12/19/1996 12:00 AM CDTS: Lennie is in to see me requesting a start on oral contraceptives. She tells me she took the pill once before, for about six months in 1995 she believes. Her memory of these events seems vague. She tells me she has had a period daily since 10/13/96. She sees spotting almost every single day, often only when she wipes, but sometimes she does have some spotting or bleeding on a pad. She does not have any abdominal pain. She tells me she has been with the same sexual partner for two years, they have never had intercourse; they once attempted intercourse with the use of a condom but her partner was very nervous about and STD's, and they did not continue. She tells me, however, that she had a negative HIV test done outside of this clinic last year. She wishes to start on control pills to regulate her period as well as a control method. She is a cigarette smoker, smoking about 1/2 pack per day. She has a history of depression. She is not taking any medications at this point. She is going to an alternative high school called [employer] in [place]. She lives with her mother, whom she says is supportive and who will know that she is taking control pills. She does recall that she did have a hard time remembering to take her pill the last time she was on it. (CONT. NEXT PAGE) She is a fairly new patient to [facility]. She cannot recall when her last Pap smear was done, although she says she has had a Pap in the past and has had STD testing in the past. O: Weight is 295 pounds. BP is 110/80. A speculum exam was done. The cervix is pink and clean, covered with a small amount of blood-tinged mucus. A GC-chlamydia screen was done. A pelvic exam revealed no tenderness; it was difficult to outline the uterus and the adnexa due to obesity, but everything appeared to be within normal limits. A: 16-year-old with prolonged irregular vaginal spotting, wishing to start on oral contraceptives. (CONT. NEXT PAGE) P: Dr. Robledo was [facility] at [facility]. He advised a waiting urine test, which was done and was negative. A GC-chlamydia screen was done, results are pending. Dr. Robledo suggested a start on oral contraceptives this Sunday. A Pap smear was also sent. She was given a prescription for Loestrin 1.01/30, the control pill instruction pamphlet was reviewed in detail. She was advised to quit smoking if she is able to do so; we discussed the increased risk with smoking while on oral contraceptives. Lennie understands that her irregular bleeding might continue in the first two packs of pills, but hopefully it will resolve by the third month. She will return to clinic within three months for a blood pressure check, or sooner if she is having problems. cc: documented in this encounter Plan of Treatment Not on filedocumented as of this encounter Visit Diagnoses Not on filedocumented in this encounter
--- OUTSIDE RECORDS SUMMARY | 2022-04-17 15:26 | XMS_ITS | Encounter Summary ---
:1980 Author Organization [email or web address] Address [address] [place] [address] Care Team Providers Name Role Phone Unavailable Primary Care Provider Unavailable Encounter Details Date Type Department Care Team Description 06/29/1997 Office Visit Sofia Rader, POLE SHAVER HELPER, ED TRANSPORTER CERVICALGIA [address] [address] (Wo rk) Social History Tobacco Use Types Packs/Day Years Used Date Smoking Tobacco: Never Assessed Sex Assigned at Date Recorded Not on file documented as of this encounter Progress Notes Kim Rader - 06/29/1997 12:00 AM CSTS: Lennie is an 17-year-old here with continuing complaint of neck stiffness with sore throat. Her mother is concerned that she might have mono or other illness as Lennie continues to be fatigued as well. Lennie denies any eye puffiness or swelling. She has no abdominal pain. Lennie states that her symptoms have been persisting for approximately five days. She denies any significant sore throat pain though it is a little bit sore. Her neck pain continues to be primarily on the left side, extending from her jaw toward her clavicle, and it hurts more with neck movement. Lennie denies headaches. O: Lennie is in no acute distress though her affect is somewhat flat. BP is 118/78. Temp 99. Eyes are clear without drainage. TM's are street with cone of light and landmarks are visible. Neck is supple without adenopathy. Extreme right lateral rotation and flexion reproduces her pain. The remainder of range of motion is done without pain. Pharynx is minimally erythematous. Tonsils are pitted, 2 to 3+/4. Rapid strep screen is negative. (CONT. NEXT PAGE) A: Musculoskeletal neck pain, probable URI. P: Lennie was encouraged to rest, use Tylenol or ibuprofen for neck pain. Increase fluids. Follow up if symptoms should change or worsen. cc: ING ASSISTANT documented in this encounter Plan of Treatment Not on filedocumented as of this encounter Visit Diagnoses Diagnosis Cervicalgia documented in this encounter
--- OUTSIDE RECORDS SUMMARY | 2022-04-17 15:26 | XMS_ITS | Encounter Summary ---
:1980 Author Organization [facility] Address [address] [place] [address] Care Team Providers Name Role Phone Elizabeth Anderson MD Primary Care Provider Reason for Visit Reason Onset Date Comments Other 09/13/2004 pt is having dark sp ots on her hand's and feet pt ask to speak to rn nurse. Encounter Details Date Type Department Care Team Description 09/13/2004 Telephone [place] [facility] Unassigned, Other (pt is having Medicine Provider dark spots on her [address] [facility] hand's and feet pt ask [place], [place] [address] [place], [place] to speak to rn nurse.) [phone] [id number] Social History Tobacco Use Types Packs/Day Years Used Date Smoking Tobacco: Never Assessed Sex Assigned at Date Recorded Not on file documented as of this encounter Nursing Notes 09/13/2004 11:59 PM POTATO PEELING MACHINE OPERATOR >> ADIA Van Sep 13, 2004 11:30 AM Pt advised to see pcp or dermatology. Adia Booth RN >> SAMANTHA Van Sep 13, 2004 11:01 AM Encounter initiated. documented in this encounter Plan of Treatment Not on filedocumented as of this encounter Visit Diagnoses Not on filedocumented in this encounter Care Teams Rail Transportation Tabeler Relationship Specialty Start Date End Date Elizabeth Anderson MD PCP - General 09/15/02 03/17/12 [address] [place], [place] [id number] documented as of this encounter
--- OUTSIDE RECORDS SUMMARY | 2022-04-17 15:26 | XMS_ITS | Encounter Summary ---
:1980 Author Organization [facility] Address [address] [place] [address] Care Team Providers Name Role Phone Unavailable Primary Care Provider Unavailable Encounter Details Date Type Department Care Team Description 11/03/1996 Office Visit Sofia Rader, FINANCIAL BUSINESS ANALYST, SUPERVISOR TRANSCRIBING OPERATORS [address] [place] [address] (Wo rk) Social History Tobacco Use Types Packs/Day Years Used Date Smoking Tobacco: Never Assessed Sex Assigned at Date Recorded Not on file documented as of this encounter Progress Notes Kim Rader - 11/03/1996 12:00 AM CSTS: Lennie is a 16 year old, here complaining of right foot pain. She states for the past two weeks she's noticed pain on the outer aspect of her foot and into her heel area. It's especially painful when she first gets up in the morning or after being seated and off her feet for any length of time. She's tried different shoes, but has noticed no improvement in her pain, and she has no change when she walks barefoot. She denies any trauma to the area; has never had any similar pain before, and has no pain in her left foot. She denies any swelling, tingling, or numbness. Lennie is on no medications, has no known medication allergies, and describes her overall health as good. O: In no acute distress; weight 289, BP 118/78, temp 99.8, pulse 78, respirations 18; right upper foot is warm to the touch with no swelling, and pedal pulses 4/4. Ankle is without pain or tenderness and exhibits full range of motion. There is tenderness noted along the medial aspect of her heel and extending into her arch area. No tenderness noted in the ball of her foot or in her toes. A: Plantar fasciitis. P: I encouraged Lennie to purchase insoles to wear in her shoes and to never go barefoot. She will use Ibuprofen, 800 mg, one TID prn. We discussed stretching exercises and the importance of using ice in the area when it is painful. She was given the brochure on heel pain. I encouraged her to f/u in 3-4 weeks if her heel is not improving, and sooner if it should worsen. cc: LY PRACTICE NURSE PRACTITIONER documented in this encounter Plan of Treatment Not on filedocumented as of this encounter Visit Diagnoses Not on filedocumented in this encounter
== END 2022-04-17 15:25 | disposition left against medical advice (07) ==
PROVIDERS: Emergency Provider Family Medicine; PCP Family Medicine
DX: Z53.21 Procedure and treatment not carried out due to patient leaving prior to being seen by health care provider (principal)
CPT/HCPCS: 99281

== ENCOUNTER 2023-10-19 09:52 | Outpatient (CLI) | payer BC, SELFPAY ==
--- OUTSIDE RECORDS SUMMARY | 2023-10-19 09:54 | XMS_ITS | Clinical Summary ---
Author Name Unknown Organization [facility] Address [place], [place] [address] Care Team Providers Care Diabetes Specialist Name Role Phone Anny Daily PROCESSOR HELPER Primary Care Provider [phone] Allergies Active Allergy Reactions Criticality Noted Date Comments Adhesive Tape-Silicones Rash 02/05/2015 Medications Medication Sig Dispensed Refills Start Date End Date Status hydrOXYzine HCL (ATARAX) 25 mg tabletIndications:Anx iety Take 1-2 Tablets (25-50 mg) by mouth every 6 hours if needed for Anxiety. 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, antepartum 03/20/2016 Morbid obesity 01/16/2011 Gastroesophageal reflux 01/16/2011 Back pain 01/16/2011 Hip impingement syndrome 01/16/2011 Resolved Problems Problem Noted Date Diagnosed Date Resolved Date Elderly primigravida in third trimester 03/20/2016 02/03/2022 Positive GBS test 03/20/2016 02/03/2022 Chorioamnionitis in third trimester 03/20/2016 02/03/2022 Vaginal delivery 03/20/2016 02/03/2022 Immunizations Name Administration Dates Next Due Influenza Virus, Unspecified 08/07/2008 Influenza, IIV4 09/02/2021,06/19/2017 MMR 03/21/2016 Td (Age >=7 Years) 05/15/1997 Tdap 09/28/2017,12/31/2015,01/10/2011 Social History Tobacco Use Types Packs/Day Years Used Date Smoking Tobacco: Former Smokeless Tobacco: Never Comments:quit 2008 Alcohol Use Standard Drinks/Week Comments No 0 (1 standard drink = 0.6 oz pur e alcohol) PHQ-2 Answer Date Recorded PHQ-2 TOTAL SCORE 2 02/03/2022 Social Connections Answer Date Recorded Frequency of Communication with Friends and Fami ly Not on file 09/03/2023 Financial Resource Strain Answer Date R ecorded Difficulty of Paying Living Expenses 3 08/21/2022 Difficulty of Paying Living Expenses Not on file 08/21/2022 Food Insecurity Answer Date Recorded Worried About Running Out of Food in the Last Ye ar 1 08/21/2022 Transportation Needs Answer Date Record ed Lack of Transportation (Medical) 1 08/21/2022 Housing Stability Answer Date Recorded Unable to Pay for Housing in the Last Year 1 08/21/2022 Sex and Gender Information Value Date Recorded Sex Assigned at Not on file Gender Identity Not on file Sexual Orientation Not on file Obstetrics History Para Term AB IAB SAB Ectopic Multiple Livin g Live Births 1 1 1 1 1 Date Outcome GA Total Labor Labor/2nd/3rd Weight Sex Delivery Anes PTL Lachelle A1 A5 Name Cl in 03/20 Term 40w 2d 3.08 kg (6 lb 12.6 oz) F Vag Tania ng 2 8 BG LENNIE RODNEY Delivery Location:[facility] Last Filed Vital Signs Vital Sign Reading Time Taken Comments Blood Pressure 151/87 07/20/2021 5:22 PM ART DEPARTMENT HEAD Pulse 82 07/20/2021 5:22 PM ART DEPARTMENT HEAD Temperature 36.7 ??C (98 ??F) 07/20/2021 5:22 PM ART DEPARTMENT HEAD Respiratory Rate 20 07/20/2021 5:22 PM ART DEPARTMENT HEAD Oxygen Saturation 97% 07/20/2021 5:22 PM ART DEPARTMENT HEAD Inhaled Oxygen Concentration - - Weight 102 kg (224 lb 12.8 oz) 03/07/2016 3:32 P M CDT Height 175.3 cm (5' 9) 03/07/2016 3:32 PM CDT Body Mass Index 33.2 03/07/2016 3:32 PM CDT Plan of Treatment Health Maintenance Due Date Last Done Comments HIV for age 15-65 1994 BMI (ht and wt on same day) for age 18+ 1997 Hepatitis C screening for age 18-79 1997 Depression screening for age 12+ 02/03/2023 02/03/2022 COVID-19 vaccine series ( season) 2023 08/18/2021, 01/22/2021, 12/25/2020 Influenza for age 9-49 05/04/2023 , 06/19/2017, 08/07/2008 Pap test for age 21-65 03/28/2025 03/28/2022, 2021 Tetanus booster 09/28/2027 09/28/2017, 12/03, 01/10/2011, Additional history exists Tdap Completed 09/28/2017, 12/03, 01/10/2011 Pneumococcal series for age 6-64 Aged Out No longer eligible based on patient's age to complete this topic Advance Directives Latest Code Status on File Code Status Date Activated Date Inactivated Comments Full Code 03/20/2016 7:49 AM 03/22/2016 3:40 PM Code Status History Code Status Date Activated Date Inactivated Comments Full Code 03/20/2016 2:55 AM 03/20/2016 7:49 AM Full Code 03/19/2016 10:13 PM 03/20/2016 2:55 AM Full Code 03/07/2016 4:44 PM 03/07/2016 7:14 PM Full Code 08/04/2013 11:28 AM 08/04/2013 7:47 PM Care Teams Diabetes Specialist Relationship Specialty Start Date End Date Anny Daily, PROCESSOR HELPER [id number] [address] [place] [id number] PCP - General 02/05/15
--- OUTSIDE RECORDS SUMMARY | 2023-10-19 09:54 | XMS_ITS | Encounter Summary ---
Author Name Unknown Organization [facility] Address [address] [place] [address] Care Team Providers Care Curing Supervisor Name Role Phone Anny Daily APRN, ASSEMBLER SURGICAL GARMENT Primary Care Provider Encounter Details Date Type Department Care Team (Late st Contact Info) Description 01/18/2023 [facility] [phone] Social History Tobacco Use Types Packs/Day Years Used Date Smoking Tobacco: Former Smokeless Tobacco: Never Comments:few a week Alcohol Use Standard Drinks/Week Comments Yes 12 (1 standard drink = 0.6 oz pu re alcohol) 3 per week Sex and Gender Information Value Date Recorded Sex Assigned at Not on file Gender Identity Not on file Sexual Orientation Not on file documented as of this encounter Progress Notes * FAMILY MEDICINEKWABENA PROVIDER - 01/18/2023 12:05 PM CDT kwabena Treatment Plan Diagnosis Cuts Visit Date January 18, 2023 Lennie Irene Date of : 78 Provider Michelle Tony, Nurse Practitioner Note From Provider Lennie Ibanez! Thanks for using [facility] today. Sorry to see you have an injury to the side of your foot! The good news is there are no visible signs of infection, and the skin around the injury is showing signs of healing. It?? optional to use an ujzd-onb-viaasxu ointment, such as Bacitracin or Vaseline, to help to promote healing. It?? best to avoid Neosporin because it can cause a rash in some peo ple. You can keep this injury covered with a bandaid and change it daily. Please be sure to read through the treatment plan I've put together for you below, as this has additional information and instructions. Request a follow up with any questions or concerns. Take good care. -Michelle Order(s) None What's going on? I?? sorry to hear that you have a cut to your foot. Let?? get you feeling better! Based on what you shared, you have a laceration, also known as a cut. Cuts are very common and typically aren?? serious - even though they can hurt a lot! I understand that you could be concerned about infection. The good news is that the cut looks like it is healing well and I don?? see any signs of infection or a need for stitches. What to do now The goal is to promote healing and prevent infection, so you??e heading in the right direction. We??e put together a treatment plan to manage this at home by following these 3 steps: 1. Clean the cut. Gently wash with mild soap, rinse well and pat dry. 2. Cover the cut. Use a bandage with a non-stick pad, such as Curad?? Band- Aid?? or a store-brand bandage. Change the bandage daily. 3. Manage pain. Apply an ice pack wrapped in a paper towel to the cut for 15 minutes, 3 times aday, for 3 days after the injury. If you don?? have an ice pack handy, use a bag of frozen veggies or put ice cubes in a plastic bag. Use zrlh-eyw-erceoeb pain relievers, such as acetaminophen or ibuprofen, as needed. Tips: - It?? ok to wash the area of the cut with mild soap and water. Don?? use rubbing alcohol, hydrogenperoxide or other products. They can damage the skin, slow down healing and lead to swelling or pain. - It?? ok for the cut to get wet, but avoid soaking in a bath or swimming until the cut has healed. - It?? optional to use an bvuo-lwf-zhnvowq ointment, such as Bacitracin or Vaseline, to help to promote healing. It?? best to avoid Neosporin because it can cause a rash in some people. What to do next Keep an eye on the cut. It?? normal to see a slight increase in swelling and drainage for the first3?? days. The area may itch as it heals - avoid scratching or picking at any scabs. It can take up to 3 months for complete healing and new skin to grow, so protect this tender area with sunscreen toprevent scarring. Want to talk to a Nurse Practitioner? We are always available to answer your questions. Please select HELP to Request a Follow-up forsupport. Get checked out at a clinic if you notice any of these symptoms: - Increased redness, swelling, warmth, pain or streaks. There?? a noticeable increase in redness, swelling, warmth or pain around the abrasion, or you see red streaks - Drainage. Your cut has drainage that is thick and yellow or greenish in color - Decreased mobility. You have difficulty doing normal activities because you can?? move the injured area without a lot of pain or stiffness - Numbness or tingling. The injured area feels numb or tingly - Fever. You have a temperature higher than 100.5 What will happen in clinic? The provider will do an exam and consider additional testing to check for infection or complications. My Conditions, Orders, Allergies as of January 18, 2023 Standard condition list Acid Reflux/GERD Current orders None Allergies None iPAYst Information [facility] by [employer] We are an online clinic open 26/03. If you have any questions or comments about this visit, please call or email [email or web address] documented in this encounter Plan of Treatment Not on file documented as of this encounter Visit Diagnoses Not on filedocumented in this encounter Care Teams Curing Supervisor Relationship Specialty Start Date End Date Anny Daily, PLAY LEADER, ASSEMBLER SURGICAL GARMENT [address] [address] [id number] PCP - General Nurse Practitioner 03/20/18 documented as of this encounter
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
== END 2023-10-19 09:53 | disposition home or self-care (01) ==
LOC: NFLDREF 09:53
PROVIDERS: PCP Family Medicine; Visit Provider Family Medicine
DX: Z30.09 Encounter for other general counseling and advice on contraception (principal)
CPT/HCPCS: 80048

== ENCOUNTER 2023-11-08 07:25 | Day surgery (SDC) | payer BC, SELFPAY ==
[2023-11-08] VITALS (11 sets, daily range): BP systolic 108–123; BP diastolic 70–85; PULSE 58–80; RESP 12–16; TEMP 36.3–36.9; O2SAT 95–100; BMI 41.3
[2023-11-08 08:05] LABS: Ur HCG Qualitative* Negative (Negative)
[2023-11-08] MEDS: LACTATED RINGERS 1000 ML 1,000 ML 100 ML IV ×2 (08:10→10:05)
--- NOTE | 2023-11-08 08:47 | W.PM.H&PU ---
History & Physical Update History & Physical Update H&P Reviewed and patient assessed: No changes noted
[2023-11-08] MEDS: BUPIVACAINE 0.5 %/EPI 1:200K 30 ML INJECTION (10:08)
--- NOTE | 2023-11-08 10:24 | W.ANESCHARGE ---
Anesthesia Charges Start Date/Time Anesthesia Start Date: 11/08/23 Anesthesia Start Time: 08:45 Stop Date/Time Anesthesia Stop Date: 11/08/23 Anesthesia Stop Time: 10:25
[2023-11-08] MEDS: fentaNYL 100 MCG/2 ML inj 50 MCG IVP ×2 (10:31→10:38)
--- NOTE | 2023-11-08 10:39 | W.ANESCHARGE ---
Anesthesia Charges Start Date/Time Anesthesia Start Date: 11/08/23 Anesthesia Start Time: 08:45 Stop Date/Time Anesthesia Stop Date: 11/08/23 Anesthesia Stop Time: 10:25
--- NOTE | 2023-11-08 10:48 | PM.GYNPRLA ---
Procedure Pre-op/Post-op diagnoses: Pre-Op/Post-Op Diagnoses Operation Date: 11/08/23 08:45 <No data on this case meets the specified criteria> Procedure: Procedures Operation Date: 11/08/23 08:45 Actual Procedure Side Surgeon p Laparoscopic Bilateral Salpingectomy Bilateral Donya Magana MD Estimated blood loss (mL): 5 Anesthesia type: General Complications: none Specimen: other (Bilateral fallopian tube ) Findings: EUA: Mons normal, clitoris normal, urethral meatus normal. Labia minora and majora normal in appearance bilaterally. Perineum and anus normal appearance. Vaginal introitus normal appearance. Bimanual exam reveals uterus to be soft, nontender, mobile, anteverted, of normal size and texture. No palpable adnexal masses or tenderness. Laparoscopy: The uterus, bilateral fallopian tubes and ovaries all appeared normal. Appendix surgically absent. Adhesions of sigmoid colon on left pelvic side wall near the left ovary. Narrative: Preoperative diagnosis: Lennie is a 43-year-old who desires permanent sterilization. Postoperative diagnosis: Same. Procedure: Laparoscopic bilateral salpingectomy Anesthesia: General endotracheal Surgeon: Donya Magana MD EBL: 5 mL Urine output: 100 mL clear urine IVF: 1000 ml Procedure: Patient was taken to the operating room where general anesthetic was found to be adequate. She was placed in the dorsal lithotomy position and an exam under anesthesia was performed with findings stated above. She was then prepped and draped in a normal sterile manner. A Irene catheter was then placed. A large sponge stick was placed into the vagina to be used as a manipulator was then placed. Attention was then turned to performing the laparoscopic portion of the procedure. All incisions were injected with 0.5% Marcaine prior to incision. A vertical 5 mm infraumbilical, incision, was made and a 5 mm trocar placed under direct visualization with the laparoscope. 5 mm camera was placed within the 5 mm Fios Kii trocar, and advanced under direct visualization through the anterior abdominal wall into the peritoneal cavity, while tenting up the anterior abdominal wall. The trocar was removed. The balloon was inflated, holding the port in place. Pneumoperitoneum was achieved. Survey of the abdomen and pelvis revealed the above-noted findings. Two additional port sites were created. The first was in the patient's left lower quadrant, just superomedial to the left ASIS. The second was a hand's breath superior to and slightly medial to the first (of note, I had to use the bariatric trocar for this). Each was infiltrated with small amount of Marcaine prior to incision. A 5 mm incision was made at each site, after assuring that large vessels were out of harm's way. A 5 mm Fios Kii port was inserted at each site, under direct visualization and without complication. The balloon on each of the 3 ports was inflated, holding each in place. The left fallopian tube was grasped with a sliding grasper. The left fallopian tube was removed from the broad ligament using the LigaSure dissecting forceps starting at the fimbriated end of the tube. Sequential pedicles were then formed to the level of the cornua. The tube was then removed at the cornua and removed from the abdomen through the left lower quadrant port. The right fallopian tube was removed in a similar manner. Excellent hemostasis was noted of all pedicles. The trocars were then removed under direct visualization. The CO2 gas was allowed to escape the infraumbilical port prior to its removal. All incisions were reapproximated using 4-0 Monocryl in a running subcuticular manner. LiquiBand skin adhesive was then applied and adhesive dressings applied over each incision. The uterine manipulator and Irene catheter were removed. The patient tolerated this procedure well. Sponge, lap and instrument counts were correct x2 at the end of the procedure and the patient was taken to the recovery area in stable condition.
[2023-11-08] MEDS: ACETAMINOPHEN 500 MG TABLET 1000 MG PO (11:40)
[2023-11-08] MEDS: OXYCODONE 5 MG TABLET PO (11:40)
--- NOTE | 2023-11-08 11:46 | SUR.PHASEII ---
Patient unable to urinate. I had this trouble after having my daughter, they ended up cathing me. She requested to try again on her own in 20 minutes.
--- NOTE | 2023-11-08 12:12 | SUR.PHASEII ---
Bladder scan done by Cyril Fulton, No more than about 50cc. Patient feels comfortable going home.
== END 2023-11-08 12:21 | disposition home or self-care (01) ==
PROVIDERS: PCP Family Medicine; Visit Provider Obstetrics & Gynecology
PROC: (CPT 58661; principal; 2023-11-08 08:45)
DX: Z30.2 Encounter for sterilization (principal)
CPT/HCPCS: 58661; 00840; 00851; 36415; 81025; 85018; 86850; 86900; 86901; 88302; A9270; J1100; J1885; J2405; J2704; J2710; J3010; J3490; J7120

== ENCOUNTER 2024-05-08 19:33 | Outpatient (CLI) | payer BC, SELFPAY ==
--- OUTSIDE RECORDS SUMMARY | 2024-05-13 13:56 | XMS_ITS | Clinical Summary ---
Author Organization [employer] [facility] [employer] Address [place], [place] [address] Care Team Providers Care Handbag Framer Name Role Phone Anny Daily Sven PROGRAM REVIEW DIRECTOR Primary Care Provider [phone] Allergies Active Allergy Reactions Criticality Noted Date Comments Adhesive Tape-Silicones Rash 02/05/2015 Medications Medication Sig Dispensed Refills Start Date End Date Status hydrOXYzine HCL (ATARAX) 25 mg tabletIndications:Anx iety Take 1-2 Tablets (25-50 mg) by mouth every 6 hours if needed for Anxiety. 30 Tablet 02/08/2022 Active Active Problems Problem Noted Date [...] Outcome GA Total Labor Labor/2nd/3rd Weight Sex Type Anes PTL Lachelle A1 A5 Name Clin 016 Term 40w 2d 3.08 kg (6 lb 12.6 oz) F Vag Livin g 2 8 BG LENNIE RODNEY Delivery Location[facility] Last Filed Vital Signs Vital Sign Reading Time Taken Comments Blood Pressure 151/87 07/20/2021 5:22 PM FEEDER CATCHER Pulse 82 07/20/2021 5:22 PM FEEDER CATCHER Temperature 36.7 ??C (98 ??F) 07/20/2021 5:22 PM FEEDER CATCHER Respiratory Rate 20 07/20/2021 5:22 PM FEEDER CATCHER Oxygen Saturation 97% 07/20/2021 5:22 PM FEEDER CATCHER Inhaled Oxygen Concentration - - Weight 102 kg (224 lb 12.8 oz) 03/07/2016 3:32 P M CDT Height 175.3 cm (5' 9) 03/07/2016 3:32 PM CDT Body Mass Index 33.2 03/07/2016 3:32 PM CDT Plan of Treatment Upcoming Encounters Date Type Department Care Team (Late Contact Info) Description 05/21/2024 8:45 AM CDT Nurse/Clinic Staff Only [facility] [address] [place] [address] Health Maintenance Due Date Last Done Comments HIV for age 15-65 1994 BMI (ht and wt on same day) for age 18+ 1997 Hepatitis C screening for age 18-79 1997 Depression screening for age 12+ 02/03/2023 02/03/2022 COVID-19 vaccine series ( season) 2024 08/18/2021, 01/22/2021, 12/25/2020 Influenza for age 9-49 05/04/2024 , 06/19/2017, 08/07/2008 Pap test for age 21-65 03/28/2025 03/28/2022, 2021 Tetanus booster 09/28/2027 09/28/2017, 12/03, 01/10/2011, Additional history exists Tdap Completed 09/28/2017, 12/03, 01/10/2011 Pneumococcal series for age 6-64 Aged Out No longer eligible based on patient's age to complete this topic Procedures Procedure Name Priority Date/Time Associated Diagnosis Comments HPV THIN PREP Routine 03/28/2022 3:30 PM CDT from Last 3 Months or Most Recently Relevant to Health Maintenance Results * HPV HIGH RISK (03/28/2022 3:30 PM CDT) TYPE 16 Negative Negative 03/31/2022 2:40 PM CDT [facility] TYPE 18 Negative Negative 03/31/2022 2:40 PM CDT [facility] OTHER HIGH RISK TYPES Negative Negative 03/31/2022 2:40 PM CDT [facility] Other (Cervical) 03/28/2022 3:30 PM CDT 03/30/2022 11:50 AM CDT Narrative [facility] - 03/31/2022 2:40 PM CDT HPV types 16, 18, 31, 33, 35, 39, 45, 51, 52, 56, 58, 59, 66 and 68 DNA were undetectable or below the pre-set threshold. Methodology: Anali Calin 4800 HPV Test December Tara MACIAS MICROBIOLOGY [facility] [address] [place] [address], from Last 3 Months or Most Recently Relevant to Health Maintenance Advance Directives * Full Code (Latest Code Status on File) Date Activated Date Inactivated Comments 03/20/2016 7:49 AM 03/22/2016 3:40 PM * Full Code Date Activated Date Inactivated Comments 03/20/2016 2:55 AM 03/20/2016 7:49 AM * Full Code Date Activated Date Inactivated Comments 03/19/2016 10:13 PM 03/20/2016 2:55 AM * Full Code Date Activated Date Inactivated Comments 03/07/2016 4:44 PM 03/07/2016 7:14 PM * Full Code Date Activated Date Inactivated Comments 08/04/2013 11:28 AM 08/04/2013 7:47 PM Care Teams Handbag Framer Relationship Specialty Start Date End Date Anny Daily, PROGRAM REVIEW DIRECTOR [id number] [place] [id number] PCP - General 02/05/15
--- OUTSIDE RECORDS SUMMARY | 2024-05-13 13:56 | XMS_ITS | Clinical Summary ---
Author Organization [facility] Address [address] [place] [address] Care Team Providers Care Software Tools Developer Name Role Phone Anny Daily APRN, IMANI Primary Care Provider Source Comments You are receiving this document as you are listed as the primary care provider,follow-up provider, or the patient has been referred to you for consultation.This is in compliance with the Medicare and[facility] EHR Incentive Program,which states Providers who transition their patient to another setting of careor provider of care or refers their patient to another provider of care shouldprovide summary care record for each transition of care or referral. [facility] Allergies Active Allergy Reactions Criticality Noted Date Comments Adhesive Rash 06/19/2017 Tape adhesive Medications Medication Sig Dispensed Refills Start Date End Date Status 27-0.8 MG tablet Take 1 Tab by mouth. Active B Complex Vitamins (B COMPLEX-B12 TR OR) Active Iron, Ferrous Gluconate, 256 (28 FE) MG TABS 1 Tab. Active Vitamin D, Cholecalciferol, 400 units CAPS 800 Units. Active Jpvsmhc-Lcgqkljzt-Ramwe in D (CALCIUM MAGNESIUM OR) Active Active [...] problem 01/13/2016 GERD (gastroesophageal reflux disease) 4 Overview (05/04/2016): Takes Prevacid OTC DDD (degenerative disc disease) 12/01/2013 Iron deficiency anemia 12/01/2013 Migraine 12/01/2013 DJD (degenerative joint disease) 03/01/2012 Overview (05/04/2016): low back and right hip Anemia 03/01/2012 Overview (05/04/2016): iron deficiency anemia Resolved Problems Problem Noted Date Diagnosed Date Resolved Date AMA (advanced maternal age) primigravida 35+ 7 09/28/2017 Adjustment disorder with depressed mood 04/27/2016 11/14/2016 Borderline personality disorder 03/01/2012 02/25/2016 Adjustment disorder with depressed mood 03/01/2012 03/16/2016 Lumbago 07/23/2007 03/29/2015 Overview (04/25/2017): Pain Low Back Immunizations Name Administration Dates Next Due Flu Vac Preserv Free (3+yrs) 08/07/2008 Influenza IIV4 (Quadrivalent) 0.5mL (04891) 06/03 MMR 03/21/2016 TDAP (ADACEL) 01/10/2011 TDAP [...] Comments Blood Pressure 132/80 10/13/2020 3:20 PM ASSISTANT GM OF CONTENT & DELIVERY Pulse 79 10/25/2019 9:35 AM ASSISTANT GM OF CONTENT & DELIVERY Temperature 36.3 ??C (97.3 ??F) 10/13/2020 3:20 PM CS T Respiratory Rate 18 10/25/2019 9:35 AM ASSISTANT GM OF CONTENT & DELIVERY Oxygen Saturation 99% 10/25/2019 9:35 AM ASSISTANT GM OF CONTENT & DELIVERY Inhaled Oxygen Concentration - - Weight 155.1 kg (342 lb) 10/13/2020 3:20 PM ASSISTANT GM OF CONTENT & DELIVERY Height 177.8 cm (5' 10) 07/04/2018 10:33 AM CDT Body Mass Index 49.07 07/04/2018 10:33 AM CDT Plan of Treatment Health Maintenance Due Date Last Done Comments MTM Covered 1979 Mammogram 1979 Pneumococcal (1 - PCV) 1985 Adult Preventive Visit 1997 HepB (1) 1998 Cervical Cancer Screening 03/29/2018 03/29/2015, 06/2011 COVID-19 Vaccine (3 - season) 2024 01/22/2021, 12/25/2020 Influenza (#1) 2024 06/19/2017, 08/07/2008 DTaP/Tdap/Td (5 - Tdap) 09/28/2027 [...] ANTIBODY, WITH REFLEX Routine 08/19/2015 10:40 AM ASSISTANT GM OF CONTENT & DELIVERY AMA (advanced maternal age) primigravida 35+, unspecified [...] - 05/28/2017 7:08 PM CDT Performed at [address] [address] CLIA number [id number] Katelyn Rojas BILLET HEATER OPERATOR, RECREATION FACILITIES SUPERVISOR LAB _[address] [place] [address] * Hepatitis C Antibody, with Reflex (08/19/2015 10:40 AM ASSISTANT GM OF CONTENT & DELIVERY) Hepatitis C Antibody Nonreactive Non-React faisal HP CONVERSION 08/19/2015 10:4 0 AM ASSISTANT GM OF CONTENT & DELIVERY 08/19/2015 3:28 PM ASSISTANT GM OF CONTENT & DELIVERY Narrative HP CONVERSION - 08/20/2015 3:14 PM ASSISTANT GM OF CONTENT & DELIVERY Performed at [address] [address] CLIA number [id number] Transcriptions 10/11/2016 11:58 PM CSTNotes Recorded by Merlin Kim MD on 08/20/2015 at 3:24 PMPlease call patient.Urine culture - urinary tract infection.Recommend Ampicillin 500 mg every 6 hours x 10 days.Prescription faxed to [facility] in [place]. Merlin Kim MD LAB_1 HP CONVERSION * Pap Smear (03/29/2015 1:57 PM CDT) 03/29/2015 1:57 PM CDT Narrative HP CONVERSION - 04/05/2015 4:14 [place] [address] FINAL GYNECOLOGICAL CYTOLOGY REPORT Pathology #: [id number] ?Date Obtained: 03/29/2015 ? Date Received: 03/30/2015 INTERPRETATION/RESULTS: Negative for Intraepithelial Lesion or Malignancy. Fungal organisms morphologically consistent with Angela species. SPECIMEN ADEQUACY: Satisfactory for Evaluation. ??Endocervical cells/transformation zone component present. [id number] Verified on 04/05/2015 ??by GUILLERMINA HERNANDEZ (electronic [...] RN on behalf ofDr. Hortensia Morales, Medical DirectorPark Kaleb Cervical Cancer Screening and Management Anny Daily APRN, IMANI LAB_1 HP CONVERSION from Last 3 Months or Most Recently Relevant to Health Maintenance Care Teams Software Tools Developer Relationship Specialty Start Date End Date Anny Daily APRN, RECREATION FACILITIES SUPERVISOR [id number] [id number] PCP - General Nurse Practitioner 03/20/18
== END 2024-05-08 19:34 | disposition home or self-care (01) ==
LOC: NFLDREF 05-13 13:51
PROVIDERS: PCP Family Medicine; Referring Provider Family Medicine; Visit Provider Nurse Practitioner
DX: N30.01 Acute cystitis with hematuria (principal); B96.20 Unspecified Escherichia coli [E. coli] as the cause of diseases classified elsewhere; N89.8 Other specified noninflammatory disorders of vagina
CPT/HCPCS: 87086; 87186

== ENCOUNTER 2024-05-15 12:30 | Emergency (ER) | payer BC, SELFPAY ==
[2024-05-15 12:54] VITALS: BP 110/79; PULSE 74; RESP 20; TEMP 36.6; O2SAT 100
[2024-05-15 13:29] LABS: Appearance Urine Clear (Clear); Bilirubin Urine Negative (Negative); Blood Urine Trace-lysed (Negative); Color Urine Yellow (Yellow); Glucose Urine Negative (Negative); Ketones Urine Negative (Negative); Leukocyte Esterase Urine Negative (Negative); Nitrite Urine Negative (Negative); Protein Urine Negative (Negative); Specific Gravity Urine 1.015 (1.000-1.030); Urobilinogen Urine 0.2 (0.2-1.0); pH Urine 6.5 (5.0-8.5)
[2024-05-15 13:39] LABS: RBC Urine 0-2 (0-2); WBC Urine 0-2 (0-5)
[2024-05-15 15:35] VITALS: BP 115/80; PULSE 75; RESP 16; O2SAT 100
--- OUTSIDE RECORDS SUMMARY | 2024-05-15 16:49 | XMS_ITS | Clinical Summary ---
Author Organization [employer] [facility] [employer] [facility] Address [place], [place] [address] Care Team Providers Care Rail Switch Operator Name Role Phone Anny Daily Sven ROCK DUST SPRAYER Primary Care Provider [phone] Allergies Active Allergy Reactions Criticality Noted Date [...] g 2 8 BG LENNIE RODNEY Delivery Location:[facility] Last Filed Vital Signs Vital Sign Reading Time Taken Comments Blood Pressure 151/87 07/20/2021 5:22 PM CENTRAL SUPPLY NURSE Pulse 82 07/20/2021 5:22 PM CENTRAL SUPPLY NURSE Temperature 36.7 ??C (98 ??F) 07/20/2021 5:22 PM CENTRAL SUPPLY NURSE Respiratory Rate 20 07/20/2021 5:22 PM CENTRAL SUPPLY NURSE Oxygen Saturation 97% 07/20/2021 5:22 PM CENTRAL SUPPLY NURSE Inhaled Oxygen Concentration - - Weight 102 kg (224 lb 12.8 oz) 03/07/2016 3:32 P M CDT Height 175.3 cm (5' 9) 03/07/2016 3:32 PM CDT Body Mass Index 33.2 03/07/2016 3:32 PM CDT Plan of Treatment Upcoming Encounters Date Type Department Care Team (Late Contact Info) Description 05/21/2024 8:45 AM CDT Nurse/Clinic Staff Only [facility] [address] [place] [address] Health Maintenance Due Date Last Done Comments [...] 16 Negative Negative 03/31/2022 2:40 PM CDT [facility] TYPE 18 Negative Negative 03/31/2022 2:40 PM CDT [facility] OTHER HIGH RISK TYPES Negative Negative 03/31/2022 2:40 PM CDT [facility] TRA [facility] Other (Cervical) 03/28/2022 3:30 PM CDT 03/30/2022 11:50 AM CDT Narrative [facility] - 03/31/2022 2:40 PM CDT HPV types 16, 18, 31, 33, 35, 39, 45, 51, 52, 56, 58, 59, 66 and 68 DNA were undetectable or below the pre-set threshold. Methodology: Anali Calin 4800 HPV Test December Tara MACIAS MICROBIOLOGY [facility]AL LABORATORY [address] [place] [address], from Last 3 Months or Most Recently [...] 11:28 AM 08/04/2013 7:47 PM Care Teams Rail Switch Operator Relationship Specialty Start Date End Date Anny Daily, ROCK DUST SPRAYER [address] [address] [id number] PCP - General 02/05/15
--- OUTSIDE RECORDS SUMMARY | 2024-05-15 16:49 | XMS_ITS | Clinical Summary ---
Author Organization [facility] Address [address] [place] [address] Care Team Providers Care Terrazzo Tile Maker Name Role Phone Anny Daily APRN, IMANI Primary Care Provider Source Comments You are receiving this document as you are listed as the primary care provider,follow-up provider, or the patient has been referred to you for consultation.This is in compliance with the Medicare and[facility]id EHR Incentive Program,which states Providers who transition their patient to another setting of careor provider of care or refers their patient to another provider of care shouldprovide summary care record for each transition of care or referral. [facility] Allergies Active Allergy Reactions Criticality Noted Date Comments Adhesive Rash 06/19/2017 Tape adhesive Medications Medication Sig Dispensed Refills Start Date End Date Status 27-0.8 MG tablet Take 1 Tab by mouth. Active B Complex Vitamins (B COMPLEX-B12 TR OR) Active Iron, Ferrous Gluconate, 256 (28 FE) MG TABS 1 Tab. Active Vitamin D, Cholecalciferol, 400 units CAPS 800 Units. Active Corqhro-Fxrfnyfsr-Hdpjv in D (CALCIUM MAGNESIUM OR) Active Active [...] Free (3+yrs) 08/07/2008 Influenza IIV4 (Quadrivalent) 0.5mL (75203) 06/03 MMR 03/21/2016 TDAP (ADACEL) 01/10/2011 TDAP [...] Comments Blood Pressure 132/80 10/13/2020 3:20 PM SWEEPER BRUSH MAKER MACHINE Pulse 79 10/25/2019 9:35 AM SWEEPER BRUSH MAKER MACHINE Temperature 36.3 ??C (97.3 ??F) 10/13/2020 3:20 PM CS T Respiratory Rate 18 10/25/2019 9:35 AM SWEEPER BRUSH MAKER MACHINE Oxygen Saturation 99% 10/25/2019 9:35 AM SWEEPER BRUSH MAKER MACHINE Inhaled Oxygen Concentration - - Weight 155.1 kg (342 lb) 10/13/2020 3:20 PM SWEEPER BRUSH MAKER MACHINE Height 177.8 cm (5' 10) 07/04/2018 10:33 [...] ANTIBODY, WITH REFLEX Routine 08/19/2015 10:40 AM SWEEPER BRUSH MAKER MACHINE AMA (advanced maternal age) primigravida 35+, unspecified [...] - 05/28/2017 7:08 PM CDT Performed at [address] [address] CLIA number [id number] Katelyn Rojas SAND CASTER, TELEVISION ANTENNA INSTALLER LAB _[address] [place] [address] * Hepatitis C Antibody, with Reflex (08/19/2015 10:40 AM SWEEPER BRUSH MAKER MACHINE) Hepatitis C Antibody Nonreactive Non-React faisal HP CONVERSION 08/19/2015 10:4 0 AM SWEEPER BRUSH MAKER MACHINE 08/19/2015 3:28 PM SWEEPER BRUSH MAKER MACHINE Narrative HP CONVERSION - 08/20/2015 3:14 PM SWEEPER BRUSH MAKER MACHINE Performed at [address] [address] CLIA number [id number] Transcriptions 10/11/2016 11:58 PM CSTNotes Recorded by Merlin Kim MD on 08/20/2015 at 3:24 PMPlease call patient.Urine culture - urinary tract infection.Recommend Ampicillin 500 mg every 6 hours x 10 days.Prescription faxed to [facility] in [place]. Merlin Kim MD LAB_1 HP CONVERSION * Pap Smear (03/29/2015 1:57 PM CDT) 03/29/2015 1:57 PM CDT Narrative HP CONVERSION - 04/05/2015 4:14 [place] [address] FINAL GYNECOLOGICAL CYTOLOGY REPORT Pathology #: [id number] ?Date Obtained: 03/29/2015 ? Date Received: 03/30/2015 INTERPRETATION/RESULTS: Negative for Intraepithelial Lesion or Malignancy. Fungal organisms morphologically consistent with Angela species. SPECIMEN ADEQUACY: Satisfactory for Evaluation. ??Endocervical cells/transformation zone component present. [id number] Verified on 04/05/2015 ??by GUILLERMINA HERNANDEZ (electronic [...] Recently Relevant to Health Maintenance Care Teams Terrazzo Tile Maker Relationship Specialty Start Date End Date Anny Daily APRN, TELEVISION ANTENNA INSTALLER [address] [address] [address] [id number] PCP - General Nurse Practitioner 03/20/18
== END 2024-05-15 16:51 | disposition left against medical advice (07) ==
PROVIDERS: Emergency Provider Family Medicine; PCP Family Medicine
DX: Z53.21 Procedure and treatment not carried out due to patient leaving prior to being seen by health care provider (principal)
CPT/HCPCS: 81001

== ENCOUNTER 2024-05-16 07:44 | Emergency (ER) | payer BC, SELFPAY ==
[2024-05-16 08:04] VITALS: BP 127/85; PULSE 91; RESP 16; TEMP 36.9; O2SAT 98; BMI 36.2
--- NOTE | 2024-05-16 08:19 | ED.ABDPAIN ---
HPI - Abdominal Pain General Chief Complaint: Abdominal Pain <Kareem Park MD - Last Filed: 05/16/24 08:21> Stated Complaint: R flank/pelvic pain <Kareem Park MD - Last Filed: 05/16/24 08:21> Time Seen by Provider: 05/16/24 08:19 <Kareem Park MD - Last Filed: 05/16/24 08:21> History of Present Illness HPI narrative: Patient is a 43-year-old woman is been seen twice in urgent care with right-sided flank pain. She is initially started on Keflex with then switched to ciprofloxacin. She continues to have right flank pain with hematuria. She has had no nausea no vomiting no fevers no chills. She has otherwise been in her usual state of health. Pain is severe and extends from the right flank to the groin. She has no personal history of kidney stones in the past. States that she is not . She has had a salpingectomy in the past. <Kareem Park MD - Last Filed: 05/16/24 08:21> Related Data Home Medications: Home Medications ?Medication ?Instructions ?Recorded ?Confirmed lansoprazole 15 mg capsule,delayed 15 mg PO QDAY 09/12/23 05/16/24 release Previous Rx's ?Medication ?Instructions ?Recorded ciprofloxacin HCl 250 mg tablet 250 mg PO BID 7 days #14 tabs 05/14/24 ondansetron 4 mg disintegrating 4 mg PO Q8H PRN nausea and 05/14/24 tablet vomiting #5 tabs ondansetron 4 mg disintegrating 4 mg PO Q6H #20 tabs 05/16/24 tablet oxycodone 5 mg tablet 5 mg PO Q6H PRN pain #12 tabs 05/16/24 <Kareem Park MD - Last Filed: 05/16/24 08:21> Allergies/Adverse Reactions: Allergies Allergy/AdvReac Type Severity Reaction Status Date / Time adhesive Allergy Unknown Rash Verified 05/16/24 08:04 <Kareem Park MD - Last Filed: 05/16/24 08:21> Review of Systems Status of ROS Reports: 10 or more systems reviewed and unremarkable except as noted in History and below <Kareem Park MD - Last Filed: 05/16/24 08:21> [facility] Medical History: Medical History CRISTINA (generalized anxiety disorder) ?F41.1 - Generalized anxiety disorder (ICD-10) Psoriasis ?L40.9 - Psoriasis, unspecified (ICD-10) Alcohol abuse ?F10.10 - Alcohol abuse, uncomplicated (ICD-10) Dysfunctional uterine bleeding ?N93.8 - Other specified abnormal uterine and vaginal bleeding (ICD-10) Rheumatoid arthritis ?M06.9 - Rheumatoid arthritis, unspecified (ICD-10) Morbid obesity with body mass index (BMI) of 45.0 to 49.9 in adult (01/16/11) ?E66.01 - Morbid (severe) obesity due to excess calories (ICD-10) ?Z68.42 - Body mass index [BMI] 45.0-49.9, adult (ICD-10) History of sacroiliac joint dysfunction (2003) ?Z87.39 - Personal history of other diseases of the musculoskeletal system and connective tissue (ICD-10) History of migraine ?Z86.69 - Personal history of other diseases of the nervous system and sense organs (ICD-10) Gastroesophageal reflux disease (01/16/11) ?K21.9 - Gastro-esophageal reflux disease without esophagitis (ICD-10) Fibromyalgia ?M79.7 - Fibromyalgia (ICD-10) Depression ?F32.A - Depression, unspecified (ICD-10) Chronic back pain ?M54.9 - Dorsalgia, unspecified (ICD-10) ?G89.29 - Other chronic pain (ICD-10) <Kareem Park MD - Last Filed: 05/16/24 08:21> Surgical History: Surgical History S/P fusion of sacroiliac joint ?Z98.1 - Arthrodesis status (ICD-10) Vaginal delivery (03/20/16) ?O80 - Encounter for full-term uncomplicated delivery (ICD-10) History of gastric bypass (02/2014) ?Z98.84 - Bariatric surgery status (ICD-10) History of cholecystectomy (2012) ?Z90.49 - Acquired absence of other specified parts of digestive tract (ICD-10) History of appendectomy (1991) ?Z90.49 - Acquired absence of other specified parts of digestive tract (ICD-10) <Kareem Park MD - Last Filed: 05/16/24 08:21> Family History: Family History Maternal Grandfather Glaucoma Parkinsons disease Family/Other Breast cancer Mother Schizophrenia Diabetes <Kareem Park MD - Last Filed: 05/16/24 08:21> Social History: Social History Narrative: , 2 kids, homemaker, nonsmoker, EtOH Little interest or pleasure in doing things: not at all Feeling down, depressed, or hopeless: several days <Kareem Park MD - Last Filed: 05/16/24 08:21> Exam Narrative: Exam Narrative: EXAM GENERAL: Patient appears comfortable and well. EYES: No scleral icterus. LYMPH: No supraclavicular or cervical lymphadenopathy. SKIN: Visible skin seen during exam normal or with benign process only. EXT: No dependent lower extremity pedal edema. HEART: Regular rate and rhythm with no murmurs, rubs, or gallops. LUNGS: Clear to auscultation bilaterally with no crackles or wheezes. ABD: Soft, non tender, non distended. PSYCH: Good eye contact, speech is not pressured. <Kareem Park MD - Last Filed: 05/16/24 08:21> Const: Vital Signs, click to edit/add: Vital Signs - 24 hr 05/16/24 08:04 Temperature 98.5 F Pulse Rate [Pulse Oximeter] 91 Respiratory Rate 16 Blood Pressure [Ri ght Upper Arm] 127/85 Pulse Oximetry 98 Oxygen Delivery Me thod Room Air <Kareem Park MD - Last Filed: 05/16/24 08:21> Vital Signs, click to edit/add: Vital Signs - 24 hr 05/16/24 08:04 Temperature 98.5 F Pulse Rate [Pulse Oximeter] 91 Respiratory Rate 16 Blood Pressure [Ri ght Upper Arm] 127/85 Pulse Oximetry 98 Oxygen Delivery Me thod Room Air <DO Ivana Augustin Last Filed: 05/16/24 09:53> Course Course ED Course: Patient sounds compelling for kidney stone. I did do CT abdomen pelvis UA CBC comprehensive metabolic panel lipase. We will start an IV and give her a normal saline bolus as well. <Kareem Park MD - Last Filed: 05/16/24 08:21> Vital Signs Vital signs: Initial Vital Signs Temperature 98.5 F 05/16/24 08:04 Temperature Source Temporal Artery Scan 05/16/24 08:04 Pulse Rate 91 05/16/24 08:04 Respiratory Rate 16 05/16/24 08:04 Blood Pressure 127/85 05/16/24 08:04 Blood Pressure Mean 99 05/16/24 08:04 Blood Pressure Position Sitting 05/16/24 08:04 Pulse Oximetry 98 05/16/24 08:04 Oxygen Delivery Method Room Air 05/16/24 08:04 Vital Signs Temperature 98.5 F 05/16/24 08:04 Pulse Rate 91 05/16/24 08:04 Respiratory Rate 16 05/16/24 08:04 Blood Pressure 127/85 05/16/24 08:04 Pulse Oximetry 98 05/16/24 08:04 Oxygen Delivery Method Room Air 05/16/24 08:04 Temperature 98.5 F 05/16/24 08:04 Pulse Rate 91 05/16/24 08:04 Respiratory Rate 16 05/16/24 08:04 Blood Pressure 127/85 05/16/24 08:04 Pulse Oximetry 98 05/16/24 08:04 Oxygen Delivery Method Room Air 05/16/24 08:04 <Kareem Park MD - Last Filed: 05/16/24 08:21> Initial Vital Signs Temperature 98.5 F 05/16/24 08:04 Temperature Source Temporal Artery Scan 05/16/24 08:04 Pulse Rate 91 05/16/24 08:04 Respiratory Rate 16 05/16/24 08:04 Blood Pressure 127/85 05/16/24 08:04 Blood Pressure Mean 99 05/16/24 08:04 Blood Pressure Position Sitting 05/16/24 08:04 Pulse Oximetry 98 05/16/24 08:04 Oxygen Delivery Method Room Air 05/16/24 08:04 Vital Signs Temperature 98.5 F 05/16/24 08:04 Pulse Rate 91 05/16/24 08:04 Respiratory Rate 16 05/16/24 08:04 Blood Pressure 127/85 05/16/24 08:04 Pulse Oximetry 98 05/16/24 08:04 Oxygen Delivery Method Room Air 05/16/24 08:04 Temperature 98.5 F 05/16/24 08:04 Pulse Rate 91 05/16/24 08:04 Respiratory Rate 16 05/16/24 08:04 Blood Pressure 127/85 05/16/24 08:04 Pulse Oximetry 98 05/16/24 08:04 Oxygen Delivery Method Room Air 05/16/24 08:04 <Imer Negrete DO - Last Filed: 05/16/24 09:53> Medications Administered Medications: Discontinued Medications Generic Name Dose Route Start Last Admin Trade Name Freq PRN Reason Stop Dose Admin Sodium Chloride 1,000 mls @ 1,000 mls/hr 05/16/24 08:22 05/16/24 09:14 0.9 % Sodium Chloride 1000 Ml IV 05/16/24 09:21 1,000 mls/hr .Q1H ALEX Administration <Kareem Park MD - Last Filed: 05/16/24 08:21> Discontinued Medications Generic Name Dose Route Start Last Admin Trade Name Freq PRN Reason Stop Dose Admin Sodium Chloride 1,000 mls @ 1,000 mls/hr 05/16/24 08:22 05/16/24 09:14 0.9 % Sodium Chloride 1000 Ml IV 05/16/24 09:21 1,000 mls/hr .Q1H ALEX Administration <DO Ivana Augustin Last Filed: 05/16/24 09:53> MDM - Abdominal Pain MDM Narrative Medical decision making narrative: Patient is a 43-year-old female signed out to me pending lab work and imaging. She is here for right flank pain concerned about a UTI. Her hemoglobin came back at 9.7. This is consistent with what her hemoglobin was 2 days ago she saw her provider. She is started on Cipro at that time for pyelonephritis and is on day 3 of 14 days. She has not noticed any further hematuria and she states the hematuria improved quickly when she got the Keflex. Urinalysis shows no signs of UTI is only trace blood in the urine at this time. CMP shows no concerning findings. CT scan returned showing no acute abnormalities. It is possible that her residual pain and discomfort is from inflammation still occurring within the kidney from her likely pyelonephritis she had and will improve with time. Will prescribe her Zofran and oxycodone for pain management. She is agreeable to this plan. <Imer Negrete, DO - Last Filed: 05/16/24 09:53> Lab Data Labs: Lab Results 05/16/24 Range/Units 08:35 WBC 7.62 (4.50-11.00) K/uL RBC 4.03 (4.00-5.20) m/uL Hgb 9.7 L (12.0-16.0) gm/dL Hct 31.4 L (33.0-51.0) % MCV 78 L (80-100) fL MCH 24 L (26-34) pg MCHC 31 L (32-36) gm/dL RDW Coeff of Brandon 15.8 H (11.5-15.5) % Plt Count 304 (140-440) K/uL Neut % (Auto) 65.3 (42.0-72.0) % Lymph % (Auto) 25.1 (20-44) % Gillespie % (Auto) 7.2 (0.0-11.0) % Eos % (Auto) 1.6 (0.0-7.0) % Baso % (Auto) 0.7 (0.0-3.0) % Neut # (Auto) 4.98 (1.7-7.0) K/uL Lymph # (Auto) 1.91 (0.90-2.90) K/uL Gillespie # (Auto) 0.50 (0.00-0.90) K/UL Eos # (Auto) 0.12 (0.00-0.50) K/uL Baso # (Auto) 0.05 (0.00-0.30) K/uL Abs Immat Gran (auto) 0.01 (0.00-0.30) K/uL Imm/Tot Granulo (auto) 0.1 % Sodium 137 (135-149) mmol/L Potassium 3.8 (3.6-5.1) mmol/L Chloride 105 (96-114) mmol/L Carbon Dioxide 21 (20-32) mmol/L Anion Gap 11 (7-15) mEq/L BUN 7 (5-24) mg/dL Creatinine 0.5 (0.5-1.5) mg/dL Estimated Creat Clear 150.05 Estimated GFR 119 ml/min Glucose 111 (60-115) mg/dL Calcium 9.2 (8.4-10.6) mg/dL Total Bilirubin 0.4 (0.1-1.5) mg/dL AST 22 (12-35) U/L ALT 14 (4-35) U/L Alkaline Phosphatase 67 (40-150) U/L Total Protein 7.1 (6.0-8.3) g/dL Albumin 4.4 (3.3-5.0) g/dL Lipase 71 (23-300) U/L Urine Color Yellow (Yellow) Urine Appearance Clear (Clear) Urine pH 5.5 (5.0-8.5) Ur Specific [place] 1.010 (1.000-1.030) Urine Protein Negative (Negative) Urine Glucose (UA) Negative (Negative) Urine Ketones Negative (Negative) Urine Blood Trace-intact A (Negative) Urine Nitrite Negative (Negative) Urine Bilirubin Negative (Negative) Urine Urobilinogen 0.2 (0.2-1.0) Ur Leukocyte Esterase Negative (Negative) <Kareem Park MD - Last Filed: 05/16/24 08:21> Lab Results 05/16/24 Range/Units 08:35 WBC 7.62 (4.50-11.00) K/uL RBC 4.03 (4.00-5.20) m/uL Hgb 9.7 L (12.0-16.0) gm/dL Hct 31.4 L (33.0-51.0) % MCV 78 L (80-100) fL MCH 24 L (26-34) pg MCHC 31 L (32-36) gm/dL RDW Coeff of Brandon 15.8 H (11.5-15.5) % Plt Count 304 (140-440) K/uL Neut % (Auto) 65.3 (42.0-72.0) % Lymph % (Auto) 25.1 (20-44) % Gillespie % (Auto) 7.2 (0.0-11.0) % Eos % (Auto) 1.6 (0.0-7.0) % Baso % (Auto) 0.7 (0.0-3.0) % Neut # (Auto) 4.98 (1.7-7.0) K/uL Lymph # (Auto) 1.91 (0.90-2.90) K/uL Gillespie # (Auto) 0.50 (0.00-0.90) K/UL Eos # (Auto) 0.12 (0.00-0.50) K/uL Baso # (Auto) 0.05 (0.00-0.30) K/uL Abs Immat Gran (auto) 0.01 (0.00-0.30) K/uL Imm/Tot Granulo (auto) 0.1 % Sodium 137 (135-149) mmol/L Potassium 3.8 (3.6-5.1) mmol/L Chloride 105 (96-114) mmol/L Carbon Dioxide 21 (20-32) mmol/L Anion Gap 11 (7-15) mEq/L BUN 7 (5-24) mg/dL Creatinine 0.5 (0.5-1.5) mg/dL Estimated Creat Clear 150.05 Estimated GFR 119 ml/min Glucose 111 (60-115) mg/dL Calcium 9.2 (8.4-10.6) mg/dL Total Bilirubin 0.4 (0.1-1.5) mg/dL AST 22 (12-35) U/L ALT 14 (4-35) U/L Alkaline Phosphatase 67 (40-150) U/L Total Protein 7.1 (6.0-8.3) g/dL Albumin 4.4 (3.3-5.0) g/dL Lipase 71 (23-300) U/L Urine Color Yellow (Yellow) Urine Appearance Clear (Clear) Urine pH 5.5 (5.0-8.5) Ur Specific [place] 1.010 (1.000-1.030) Urine Protein Negative (Negative) Urine Glucose (UA) Negative (Negative) Urine Ketones Negative (Negative) Urine Blood Trace-intact A (Negative) Urine Nitrite Negative (Negative) Urine Bilirubin Negative (Negative) Urine Urobilinogen 0.2 (0.2-1.0) Ur Leukocyte Esterase Negative (Negative) <Imer Negrete, DO - Last Filed: 05/16/24 09:53> Imaging Data CT scan abdomen pelvis: Attestation: I have reviewed the pertinent imaging results. <Imer Negrete DO - Last Filed: 05/16/24 09:53> Radiologist's impression: No specific visible cause for right flank pain Please note that all CT scans at this facility use dose modulation, iterative reconstruction, and/or weight-based dosing when appropriate to reduce radiation dose to as low as reasonably achievable. Dictated by Suleman Lake MD @ 05/16/2024 9:21:34 AM (Electronically Signed) <Imer Negrete DO - Last Filed: 05/16/24 09:53> Discharge Plan Discharge Clinical Impression: Flank pain <Kareem Park MD - Last Filed: 05/16/24 08:21> Patient Disposition: Home, Self-Care <Kareem Park MD - Last Filed: 05/16/24 08:21> Condition: Stable <Kareem Park MD - Last Filed: 05/16/24 08:21> Instructions: Flank Pain (ED) <Kareem Park MD - Last Filed: 05/16/24 08:21> Additional Instructions: I believe it is likely that you had pyelonephritis that is now being cleared up by this Cipro you are on. Make sure you finish out the prescription. I will give you some Zofran for nausea and oxycodone for pain management. Pain should improve as inflammation goes down. You can also take Tylenol and ibuprofen for pain <Kareem Park MD - Last Filed: 05/16/24 08:21> Prescriptions: New ondansetron 4 mg tablet,disintegrating 4 mg PO Q6H Qty: 20 0RF oxycodone 5 mg tablet 5 mg PO Q6H PRN (Reason: pain) Qty: 12 0RF No Action ciprofloxacin HCl 250 mg tablet 250 mg PO BID 7 Days Qty: 14 0RF ondansetron 4 mg tablet,disintegrating 4 mg PO Q8H PRN (Reason: nausea and vomiting) Qty: 5 0RF lansoprazole 15 mg capsule,delayed release(DR/EC) 15 mg PO QDAY <Kareem Park MD - Last Filed: 05/16/24 08:21> Follow Up/Referrals: Sterling Lynn MD [Primary Care Provider] - <Kareem Park MD - Last Filed: 05/16/24 08:21> Stand Alone Forms: MyHealth Info Instructions <Kareem Park MD - Last Filed: 05/16/24 08:21>
--- NOTE | 2024-05-16 08:21 | CRLHL7_ITS ---
For Patients: As a result of the Century Cures Act, medical imaging exams and procedure reports are released immediately into your electronic medical record. You may view this report before your referring provider. If you have questions, please contact your health care provider. INDICATION: Right flank pain COMPARISON: September 03, 2021 TECHNIQUE: CT examination of the abdomen and pelvis was performed without intravenous contrast. Thin section axial images were obtained from the lung bases through the pubic symphysis. Oral contrast was not administered. Please note that all CT scans at this facility use dose modulation, iterative reconstruction, and/or weight-based dosing when appropriate to reduce radiation dose to as low as reasonably achievable. FINDINGS: LUNG BASES: Scattered linear opacities at the lung bases likely due to minimal atelectasis.The heart size is normal at the lung bases. LIVER/BILIARY SYSTEM:The liver is normal in size and configuration given the lack of intravenous contrast. There is no visible focal mass and there is no intra- or extra hepatic biliary ductal dilatation.There has been a cholecystectomy ADRENALS: Normal non-contrast appearance KIDNEYS, URETERS and BLADDER:The kidneys appear normal given lack of intravenous contrast. No visible mass, calculus or hydronephrosis. The ureters and bladder as visualized appear normal.No evidence of current or recent obstructive uropathy. No specific renal cause for right flank pain SPLEEN:Normal non-contrast appearance. PANCREAS: Normal non-contrast appearance. RETROPERITONEUM and MESENTERY: There is no mass, adenopathy or aortic aneurysm. GASTROINTESTINAL SYSTEM: Postoperative changes related to gastric bypass without visible associated complication. Mild diffuse fecal retention without mechanical obstruction. PELVIS: No mass, adenopathy or free fluid. OSSEOUS STRUCTURES and ABDOMINAL WALL: There is an age-appropriate appearance of the osseous structures.No significant abdominal wall defect. OTHER: No free fluid or free air. IMPRESSION: No specific visible cause for right flank pain Please note that all CT scans at this facility use dose modulation, iterative reconstruction, and/or weight-based dosing when appropriate to reduce radiation dose to as low as reasonably achievable. Dictated by Suleman Lake MD @ 05/16/2024 9:21:34 AM (Electronically Signed)
--- OUTSIDE RECORDS SUMMARY | 2024-05-16 08:24 | XMS_ITS | Clinical Summary ---
Author Organization [facility] Address [place], [place] [address] Care Team Providers Care Political Reporter Name Role Phone Anny Daily Sven POLITICAL SCIENCE INSTRUCTOR Primary Care Provider [phone] Allergies Active Allergy Reactions Criticality Noted Date [...] g 2 8 BG LENNIE RODNEY Delivery Location:[facility] Last Filed Vital Signs Vital Sign Reading Time Taken Comments Blood Pressure 151/87 07/20/2021 5:22 PM FINANCE LECTURER Pulse 82 07/20/2021 5:22 PM FINANCE LECTURER Temperature 36.7 ??C (98 ??F) 07/20/2021 5:22 PM FINANCE LECTURER Respiratory Rate 20 07/20/2021 5:22 PM FINANCE LECTURER Oxygen Saturation 97% 07/20/2021 5:22 PM FINANCE LECTURER Inhaled Oxygen Concentration - - Weight 102 kg (224 lb 12.8 oz) 03/07/2016 3:32 P M CDT Height 175.3 cm (5' 9) 03/07/2016 3:32 PM CDT Body Mass Index 33.2 03/07/2016 3:32 PM CDT Plan of Treatment Upcoming Encounters Date Type Department Care Team (Late Contact Info) Description 05/21/2024 8:45 AM CDT Nurse/Clinic Staff Only [facility] [address] [place] [address] Health Maintenance Due Date Last Done Comments [...] 16 Negative Negative 03/31/2022 2:40 PM CDT [facility] TYPE 18 Negative Negative 03/31/2022 2:40 PM CDT [facility] TR[facility] OTHER HIGH RISK TYPES Negative Negative 03/31/2022 2:40 PM CDT [facility] TRA LABORATORY Other (Cervical) 03/28/2022 3:30 PM CDT 03/30/2022 11:50 AM CDT Narrative [facility] - 03/31/2022 2:40 PM CDT HPV types 16, 18, 31, 33, 35, 39, 45, 51, 52, 56, 58, 59, 66 and 68 DNA were undetectable or below the pre-set threshold. Methodology: Anali Calin 4800 HPV Test December Tara MACIAS [facility]OLOG[facility] [address] [place] [address], from Last 3 Months or Most Recently [...] 11:28 AM 08/04/2013 7:47 PM Care Teams Political Reporter Relationship Specialty Start Date End Date Anny Daily, POLITICAL SCIENCE INSTRUCTOR [id number] [address] [place] [id number] PCP - General 02/05/15
--- OUTSIDE RECORDS SUMMARY | 2024-05-16 08:24 | XMS_ITS | Clinical Summary ---
Author Organization [facility] Address [address] [place] [address] Care Team Providers Care Bunk House Worker Name Role Phone Anny Daily APRN, IMANI Primary Care Provider Source Comments You are receiving this document as you are listed as the primary care provider,follow-up provider, or the patient has been referred to you for consultation.This is in compliance with the Medicare and[facility] EHR Incentive Program,which states Providers who transition their patient to another setting of careor provider of care or refers their patient to another provider of care shouldprovide summary care record for each transition of care or referral. [facility] Allergies Active Allergy Reactions Criticality Noted Date Comments Adhesive Rash 06/19/2017 Tape adhesive Medications Medication Sig Dispensed Refills Start Date End Date Status 27-0.8 MG tablet Take 1 Tab by mouth. Active B Complex Vitamins (B COMPLEX-B12 TR OR) Active Iron, Ferrous Gluconate, 256 (28 FE) MG TABS 1 Tab. Active Vitamin D, Cholecalciferol, 400 units CAPS 800 Units. Active Udheumz-Sllujpqkn-Ppqpy in D (CALCIUM MAGNESIUM OR) Active Active [...] Free (3+yrs) 08/07/2008 Influenza IIV4 (Quadrivalent) 0.5mL (39577) 06/03 MMR 03/21/2016 TDAP (ADACEL) 01/10/2011 TDAP [...] Comments Blood Pressure 132/80 10/13/2020 3:20 PM SENIOR BIOSTATISTICIAN/GROUP LEADER Pulse 79 10/25/2019 9:35 AM SENIOR BIOSTATISTICIAN/GROUP LEADER Temperature 36.3 ??C (97.3 ??F) 10/13/2020 3:20 PM CS T Respiratory Rate 18 10/25/2019 9:35 AM SENIOR BIOSTATISTICIAN/GROUP LEADER Oxygen Saturation 99% 10/25/2019 9:35 AM SENIOR BIOSTATISTICIAN/GROUP LEADER Inhaled Oxygen Concentration - - Weight 155.1 kg (342 lb) 10/13/2020 3:20 PM SENIOR BIOSTATISTICIAN/GROUP LEADER Height 177.8 cm (5' 10) 07/04/2018 10:33 [...] ANTIBODY, WITH REFLEX Routine 08/19/2015 10:40 AM SENIOR BIOSTATISTICIAN/GROUP LEADER AMA (advanced maternal age) primigravida 35+, unspecified [...] - 05/28/2017 7:08 PM CDT Performed at [address] [address] CLIA number [id number] Katelyn Rojas MANUFACTURERS AGENT, DROP WIRE OPERATOR LAB _[address] PN SOFT [address] [place] [id number] * Hepatitis C Antibody, with Reflex (08/19/2015 10:40 AM SENIOR BIOSTATISTICIAN/GROUP LEADER) Hepatitis C Antibody Nonreactive Non-React faisal HP CONVERSION 08/19/2015 10:4 0 AM SENIOR BIOSTATISTICIAN/GROUP LEADER 08/19/2015 3:28 PM SENIOR BIOSTATISTICIAN/GROUP LEADER Narrative HP CONVERSION - 08/20/2015 3:14 PM SENIOR BIOSTATISTICIAN/GROUP LEADER Performed at [address] [address] CLIA number [id number] Transcriptions 10/11/2016 11:58 PM CSTNotes Recorded by Merlin Kim MD on 08/20/2015 at 3:24 PMPlease call patient.Urine culture - urinary tract infection.Recommend Ampicillin 500 mg every 6 hours x 10 days.Prescription faxed to [facility] in [place]. Merlin Kim MD LAB_1 HP CONVERSION * Pap Smear (03/29/2015 1:57 PM CDT) 03/29/2015 1:57 PM CDT Narrative HP CONVERSION - 04/05/2015 4:14 PM [place] [address] FINAL GYNECOLOGICAL CYTOLOGY REPORT Pathology #: [id number] ?Date Obtained: 03/29/2015 ? Date Received: 03/30/2015 INTERPRETATION/RESULTS: Negative for Intraepithelial Lesion or Malignancy. Fungal organisms morphologically consistent with Angela species. SPECIMEN ADEQUACY: Satisfactory for Evaluation. ??Endocervical cells/transformation zone component present. [id number] Verified on 04/05/2015 ??by GUILLERMINA HERNANDEZ (electronic [...] Recently Relevant to Health Maintenance Care Teams Bunk House Worker Relationship Specialty Start Date End Date Anny Daily APRN, DROP WIRE OPERATOR [id number] [place] [phone] PCP - General Nurse Practitioner 03/20/18
[2024-05-16 08:46] LABS: Basophils Absolute Auto 0.05 K/uL (0.00-0.30); Basophils Percent Auto 0.7 % (0.0-3.0); Eosinophils Absolute Auto 0.12 K/uL (0.00-0.50); Eosinophils Percent Auto 1.6 % (0.0-7.0); Hematocrit 31.4 % (33.0-51.0); Hemoglobin* 9.7 gm/dL (12.0-16.0); Immature Granulocytes Abs Auto 0.01 K/uL (0.00-0.30); Immature Granulocytes Pct Auto 0.1 %; Lymphocytes Absolute Auto 1.91 K/uL (0.90-2.90); Lymphocytes Percent Auto 25.1 % (20-44); Mean Corpuscular HGB Conc 31 gm/dL (32-36); Mean Corpuscular Hemoglobin 24 pg (26-34); Mean Corpuscular Volume 78 fL (80-100); Monocytes Percent Auto 7.2 % (0.0-11.0); Neutrophils Absolute Auto 4.98 K/uL (1.7-7.0); Neutrophils Percent Auto 65.3 % (42.0-72.0); Platelet Count* 304 K/uL (140-440); RDW Coefficient of Variation % 15.8 % (11.5-15.5); Red Blood Count 4.03 m/uL (4.00-5.20); White Blood Count* 7.62 K/uL (4.50-11.00)
[2024-05-16 08:48] LABS: Appearance Urine Clear (Clear); Bilirubin Urine Negative (Negative); Blood Urine Trace-intact (Negative); Color Urine Yellow (Yellow); Glucose Urine Negative (Negative); Ketones Urine Negative (Negative); Leukocyte Esterase Urine Negative (Negative); Nitrite Urine Negative (Negative); Protein Urine Negative (Negative); Slide Review Reflex No; Urobilinogen Urine 0.2 (0.2-1.0); pH Urine 5.5 (5.0-8.5)
[2024-05-16 08:59] LABS: Albumin* 4.4 g/dL (3.3-5.0); Chloride* 105 mmol/L (96-114); Sodium* 137 mmol/L (135-149)
[2024-05-16 09:00] LABS: Potassium* 3.8 mmol/L (3.6-5.1)
[2024-05-16 09:02] LABS: Alanine Aminotransferase* 14 U/L (4-35); Alkaline Phosphatase* 67 U/L (40-150); Aspartate Amino Transferase* 22 U/L (12-35); Bilirubin Total* 0.4 mg/dL (0.1-1.5); Blood Urea Nitrogen* 7 mg/dL (5-24); Calcium* 9.2 mg/dL (8.4-10.6); Carbon Dioxide* 21 mmol/L (20-32); Creatinine* 0.5 mg/dL (0.5-1.5); Est. Creatinine Clearance* 150.05; Estimated Glomerular Filt Rate 119 ml/min; Glucose* 111 mg/dL (60-115); Lipase* 71 U/L (23-300); Total Protein* 7.1 g/dL (6.0-8.3)
[2024-05-16 09:03] LABS: Anion Gap 11 mEq/L (7-15)
[2024-05-16] MEDS: 0.9 % SODIUM CHLORIDE 1000 ml 1,000 ML IV (09:14)
== END 2024-05-16 10:05 | disposition home or self-care (01) ==
PROVIDERS: Internal Medicine; Emergency Provider Student in an Organized Health Care Education/Training Program; PCP Family Medicine
DX: R10.9 Unspecified abdominal pain (principal)
CPT/HCPCS: 36415; 74176; 80053; 81003; 83690; 85025; 99283; J7030

== ENCOUNTER 2024-05-23 13:12 | Outpatient (CLI) | payer BC, SELFPAY ==
--- OUTSIDE RECORDS SUMMARY | 2024-05-23 13:19 | XMS_ITS | Clinical Summary ---
Author Organization [facility] Address [place], [place] [address] Care Team Providers Care Cement Worker Name Role Phone Anny Daily Sven APPLICATION COORDINATOR Primary Care Provider [phone] Allergies Active Allergy Reactions Criticality Noted Date [...] g 2 8 BG LENNIE RODNEY Delivery Location:[facility] Last Filed Vital Signs Vital Sign Reading Time Taken Comments Blood Pressure 151/87 07/20/2021 5:22 PM SKETCH LINER Pulse 82 07/20/2021 5:22 PM SKETCH LINER Temperature 36.7 ??C (98 ??F) 07/20/2021 5:22 PM SKETCH LINER Respiratory Rate 20 07/20/2021 5:22 PM SKETCH LINER Oxygen Saturation 97% 07/20/2021 5:22 PM SKETCH LINER Inhaled Oxygen Concentration - - Weight 102 [...] Name Priority Date/Time Associated Diagnosis Comments HPV HIGH RISK Routine 03/28/2022 3:30 PM CDT from Last 3 Months or Most Recently Relevant to Health Maintenance Results * HPV HIGH RISK (03/28/2022 3:30 PM CDT) TYPE 16 Negative Negative 03/31/2022 2:40 PM CDT [facility] TRAL LABORATORY TYPE 18 Negative Negative 03/31/2022 2:40 PM CDT [facility] TRAL LABORATORY OTHER HIGH RISK TYPES Negative Negative 03/31/2022 2:40 PM CDT [facility] LABORATORY Other (Cervical) 03/28/2022 3:30 PM CDT 03/30/2022 11:50 AM CDT [facility] LABORATORY-CENTRAL LABORATORY - 03/31/2022 2:40 PM CDT HPV types 16, 18, 31, 33, 35, 39, 45, 51, 52, 56, 58, 59, 66 and 68 DNA were undetectable or below the pre-set threshold. Methodology: Findline Calin 4800 HPV Test Lilia Pacheco PA-C MICROBIOLOGY [facility] LABORATORY-CENTRAL LABORATORY [address] [place] [address], [place] from Last 3 Months or Most Recently [...] 11:28 AM 08/04/2013 7:47 PM Care Teams Cement Worker Relationship Specialty [place] [address] [place] [address] PCP - General 02/05/15
--- OUTSIDE RECORDS SUMMARY | 2024-05-23 13:20 | XMS_ITS | Clinical Summary ---
Author Organization [facility] Address [address] [place] [address] Care Team Providers Care Casting Machine Set Up Operator Name Role Phone Anny Daily APRN, IMANI Primary Care Provider Source Comments You are receiving this document as you are listed as the primary care provider,follow-up provider, or the patient has been referred to you for consultation.This is in compliance with the Medicare and[facility] EHR Incentive Program,which states Providers who transition their patient to another setting of careor provider of care or refers their patient to another provider of care shouldprovide summary care record for each transition of care or referral. [facility] Allergies Active Allergy Reactions Criticality Noted Date Comments Adhesive Rash 06/19/2017 Tape adhesive Medications Medication Sig Dispensed Refills Start Date End Date Status 27-0.8 MG tablet Take 1 Tab by mouth. Active B Complex Vitamins (B COMPLEX-B12 TR OR) Active Iron, Ferrous Gluconate, 256 (28 FE) MG TABS 1 Tab. Active Vitamin D, Cholecalciferol, 400 units CAPS 800 Units. Active Kezrhzh-Zuoohrxey-Nmaxc in D (CALCIUM MAGNESIUM OR) Active Active [...] Free (3+yrs) 08/07/2008 Influenza IIV4 (Quadrivalent) 0.5mL (94812) 06/03 MMR 03/21/2016 TDAP (ADACEL) 01/10/2011 TDAP [...] Comments Blood Pressure 132/80 10/13/2020 3:20 PM GROUNDS CLEANER Pulse 79 10/25/2019 9:35 AM GROUNDS CLEANER Temperature 36.3 ??C (97.3 ??F) 10/13/2020 3:20 PM CS T Respiratory Rate 18 10/25/2019 9:35 AM GROUNDS CLEANER Oxygen Saturation 99% 10/25/2019 9:35 AM GROUNDS CLEANER Inhaled Oxygen Concentration - - Weight 155.1 kg (342 lb) 10/13/2020 3:20 PM GROUNDS CLEANER Height 177.8 cm (5' 10) 07/04/2018 10:33 [...] ANTIBODY, WITH REFLEX Routine 08/19/2015 10:40 AM GROUNDS CLEANER AMA (advanced maternal age) primigravida 35+, unspecified [...] - 05/28/2017 7:08 PM CDT Performed at [address] [address] CLIA number [id number] Katelyn Rojas BAND SPLICER, SPECIAL EVENTS DIRECTOR LAB _[address] [place] [address] * Hepatitis C Antibody, with Reflex (08/19/2015 10:40 AM GROUNDS CLEANER) Hepatitis C Antibody Nonreactive Non-React faisal HP CONVERSION 08/19/2015 10:4 0 AM GROUNDS CLEANER 08/19/2015 3:28 PM GROUNDS CLEANER Narrative HP CONVERSION - 08/20/2015 3:14 PM GROUNDS CLEANER Performed at [address] [address] CLIA number [id number] Transcriptions 10/11/2016 11:58 PM CSTNotes Recorded by Merlin Kim MD on 08/20/2015 at 3:24 PMPlease call patient.Urine culture - urinary tract infection.Recommend Ampicillin 500 mg every 6 hours x 10 days.Prescription faxed to [facility] in [place]. Merlin Kim MD LAB_1 HP CONVERSION * Pap Smear (03/29/2015 1:57 PM CDT) 03/29/2015 1:57 PM CDT Narrative HP CONVERSION - 04/05/2015 4:14 [place] [address] FINAL GYNECOLOGICAL CYTOLOGY REPORT Pathology #: [id number] ?Date Obtained: 03/29/2015 ? Date Received: 03/30/2015 INTERPRETATION/RESULTS: Negative for Intraepithelial Lesion or Malignancy. Fungal organisms morphologically consistent with Angela species. SPECIMEN ADEQUACY: Satisfactory for Evaluation. ??Endocervical cells/transformation zone component present. [id number] Verified on 04/05/2015 ??by GUILLERMINA HERNANDEZ (electronic [...] Recently Relevant to Health Maintenance Care Teams Casting Machine Set Up Operator Relationship Specialty Start Date End Date Anny Daily APRN, SPECIAL EVENTS DIRECTOR [address] [place] [address] PCP - General Nurse Practitioner 03/20/18
== END 2024-05-23 13:13 | disposition home or self-care (01) ==
LOC: NFLDUCREF 13:14
PROVIDERS: PCP Family Medicine; Visit Provider Family Medicine
DX: R10.11 Right upper quadrant pain (principal)
CPT/HCPCS: 87086

== ENCOUNTER 2024-07-17 15:24 | Outpatient (CLI) | payer BC, SELFPAY ==
--- NOTE | 2024-07-17 15:20 | CRLHL7_ITS ---
For Patients: As a result of the Century Cures Act, medical imaging exams and procedure reports are released immediately into your electronic medical record. You may view this report before your referring provider. If you have questions, please contact your health care provider. BILATERAL SCREENING MAMMOGRAM WITH COMPUTER-AIDED DETECTION AND TOMOSYNTHESIS TECHNIQUE: CC and MLO views were obtained. These mammographic images have been obtained using full-field digital technique. These mammographic images were interpreted with the benefit of computer-aided detection. Breast Tomosynthesis was used in this interpretation. COMPARISON FILM: Baseline. FINDINGS: There are scattered areas of fibroglandular density. IMPRESSION: There is no radiographic evidence for malignancy. ASSESSMENT: BI-RADS Category 1: Negative RECOMMENDATION: Routine screening mammogram in 1 year. A lay language report of this examination will be provided to the patient. Sterling Hall M.D. Diagnostic Radiologist [email or web address] SP/Dictated by: Sterling Hall MD @ 07/18/2024 12:44:00 PM (Electronically Signed)
--- OUTSIDE RECORDS SUMMARY | 2024-07-17 15:27 | XMS_ITS | Clinical Summary ---
Author Organization [employer] [facility] Address [place], [place] [address] Care Team Providers Care Diabetes Manager Name Role Phone Anny Daily INDEPENDENT DRIVER Primary Care Provider [phone] Allergies Active Allergy Reactions Criticality Noted Date [...] trimester 03/20/2016 02/03/2022 Vaginal delivery 03/20/2016 02/03/2022 Encounters Date Type Department Care Team Description 06/20/2024 Nurse Triage [facility] [address] [place] [address] Anny Daily INDEPENDENT DRIVER Error-please disregard from Last 3 Months Immunizations Name Administration Dates Next Due Influenza [...] g 2 8 BG LENNIE RODNEY Delivery Location:[facility] Last Filed Vital Signs Vital Sign Reading Time Taken Comments Blood Pressure 151/87 07/20/2021 5:22 PM CARDIAC REHAB NURSE Pulse 82 07/20/2021 5:22 PM CARDIAC REHAB NURSE Temperature 36.7 ??C (98 ??F) 07/20/2021 5:22 PM CARDIAC REHAB NURSE Respiratory Rate 20 07/20/2021 5:22 PM CARDIAC REHAB NURSE Oxygen Saturation 97% 07/20/2021 5:22 PM CARDIAC REHAB NURSE Inhaled Oxygen Concentration - - Weight [...] for age 9-49 05/04/2024 , 06/19/2017, 08/07/2008 Colonoscopy through age 75 2024 Lipids for age 45-75 2024 Mammogram for age 45-75 2024 Pap test for age 21-65 03/28/2025 03/28/2022, [...] 16 Negative Negative 03/31/2022 2:40 PM CDT [facility] TRAL LABORATORY TYPE 18 Negative Negative 03/31/2022 2:40 PM CDT [facility] TRAL LABORATORY OTHER HIGH RISK TYPES Negative Negative 03/31/2022 2:40 PM CDT [facility] TRAL LABORATORY Other (Cervical) 03/28/2022 3:30 PM CDT 03/30/2022 11:50 AM CDT Narrative [facility] LABORATORY-CENTRAL LABORATORY - 03/31/2022 2:40 PM CDT HPV types 16, 18, 31, 33, 35, 39, 45, 51, 52, 56, 58, 59, 66 and 68 DNA were undetectable or below the pre-set threshold. Methodology: Anali Calin 4800 HPV Test December Tara MACIAS [facility]OLOG[facility] [address] [place] [address], from Last 3 Months or Most Recently [...] AM 08/04/2013 7:47 PM Care Teams Diabetes Manager Relationship Specialty [place] [address] [place] [address] PCP - General 02/05/15
--- OUTSIDE RECORDS SUMMARY | 2024-07-17 15:27 | XMS_ITS | Clinical Summary ---
Author Organization [facility] Address [address] [place] [address] Care Team Providers Care Manager Shell Name Role Phone Anny Daily APRN, IMANI Primary Care Provider Source Comments You are receiving this document as you are listed as the primary care provider,follow-up provider, or the patient has been referred to you for consultation.This is in compliance with the Medicare andKind[facility] Healthcarecaid EHR Incentive Program,which states Providers who transition their patient to another setting of careor provider of care or refers their patient to another provider of care shouldprovide summary care record for each transition of care or referral. [facility] Allergies Active Allergy Reactions Criticality Noted Date Comments Adhesive Rash 06/19/2017 Tape adhesive Medications Medication Sig Dispensed Refills Start Date End Date Status 27-0.8 MG tablet Take 1 Tab by mouth. Active B Complex Vitamins (B COMPLEX-B12 TR OR) Active Iron, Ferrous Gluconate, 256 (28 FE) MG TABS 1 Tab. Active Vitamin D, Cholecalciferol, 400 units CAPS 800 Units. Active Hbxpgxb-Qhddciteu-Tfrsw in D (CALCIUM MAGNESIUM OR) Active Active [...] Free (3+yrs) 08/07/2008 Influenza IIV4 (Quadrivalent) 0.5mL (06611) 06/03 MMR 03/21/2016 TDAP (ADACEL) 01/10/2011 TDAP [...] Comments Blood Pressure 132/80 10/13/2020 3:20 PM CERAMICS ENGINEER Pulse 79 10/25/2019 9:35 AM CERAMICS ENGINEER Temperature 36.3 ??C (97.3 ??F) 10/13/2020 3:20 PM CS T Respiratory Rate 18 10/25/2019 9:35 AM CERAMICS ENGINEER Oxygen Saturation 99% 10/25/2019 9:35 AM CERAMICS ENGINEER Inhaled Oxygen Concentration - - Weight 155.1 kg (342 lb) 10/13/2020 3:20 PM CERAMICS ENGINEER Height 177.8 cm (5' 10) 07/04/2018 10:33 AM CDT Body Mass Index 49.07 07/04/2018 10:33 AM CDT Plan of Treatment Health Maintenance Due Date Last Done Comments Colon Cancer Screening Plan Due 1979 Mammogram 1979 Pneumococcal (1 - PCV) 1985 Adult Preventive Visit 1997 HepB (1) 1998 Cervical Cancer Screening 03/29/2018 03/29/2015, 06/2011 COVID-19 Vaccine (3 - season) 2024 01/22/2021, 12/25/2020 Influenza (#1) 2024 06/19/2017, 08/07/2008 Cholesterol 2024 04/05/2015, 01/10/2011 DTaP/Tdap/Td (5 - Tdap) 09/28/2027 09/28/19 18, [...] on patient's age to complete this topic RSV Aged Out No longer eligi ble based on patient's age to complete this topic MCV4 Aged Out No longer eligi ble based on patient's age to complete this topic Procedures Procedure Name Priority Date/Time Associated Diagnosis Comments HIV-1 P24 AND HIV-1/HIV-2 ANTIBODIES Routine 05/28/2017 3:50 PM CDT Screening examination for venereal disease HEPATITIS C ANTIBODY, WITH REFLEX Routine 08/19/2015 10:40 AM CERAMICS ENGINEER AMA (advanced maternal age) primigravida 35+, unspecified trimester LIPID PANEL & DIRECT LDL (IF NEEDED) Routine 04/05/2015 7:50 AM CDT Screening for hyperlipidemia ANATOMICAL PATH LIQUID BASED Routine 03/29/2015 1:57 PM CDT from Last 3 Months or Most Recently Relevant to Health Maintenance Results * LAB HIV-1 p24 AND HIV-1/HIV-2 ANTIBODIES (05/28/2017 3:50 PM CDT) HIV-1 p24 Ag and HIV-1/HIV-2 Ab Nonreactive Nonreactive PN SOFT 05/28/2017 3:50 PM CDT 05/28/2017 6:27 PM CDT Narrative PN SOFT - 05/28/2017 7:08 PM CDT Performed at [address] [address] CLIA number [id number] Katelyn Rojas ZINC FURNACE CHARGER, WORSTED WINDER LAB _[address] [address] * Hepatitis C Antibody, with Reflex (08/19/2015 10:40 AM CERAMICS ENGINEER) Hepatitis C Antibody Nonreactive Non-React faisal HP CONVERSION 08/19/2015 10:4 0 AM CERAMICS ENGINEER 08/19/2015 3:28 PM CERAMICS ENGINEER Narrative HP CONVERSION - 08/20/2015 3:14 PM CERAMICS ENGINEER [place] [address] CLIA number [id number] Transcriptions 10/11/2016 11:58 PM CSTNotes Recorded by Merlin Kim MD on 08/20/2015 at 3:24 PMPlease call patient.Urine culture - urinary tract infection.Recommend Ampicillin 500 mg every 6 hours x 10 days.Prescription faxed to [facility] in [place]. Merlin Kim MD LAB_1 Performing Organization Address [facility] Co de Phone Number HP CONVERSION * Lipid Panel and Direct LDL(If Needed) (04/05/2015 7:50 AM CDT) Cholesterol 162 0 - 200 mg/dL HP CONVERSION Triglycerides 96 0 - 149 mg/dL HP CONVERSION HDL Cholesterol 61 >39 mg/dL HP CONVERSION Cholesterol/HDL Ratio Screen 2.7 HP CONVERSION LDL Calculated 82 19 - 130 mg/dL HP CONVERSION Hours Fasting 12.0 HP CONVERSION 04/05/2015 7:50 AM CDT 04/05/2015 7:50 AM CDT Narrative HP CONVERSION - 04/05/2015 8:37 AM CDT Performed at [facility], [address] [place] [address] Anny Daily APRN, CNP LAB_1 Performing Organization Address [facility] de Phone Number HP CONVERSION * Pap Smear (03/29/2015 1:57 PM CDT) 03/29/2015 1:57 PM CDT Narrative HP CONVERSION - 04/05/2015 4:14 PM CDT Performed at [place] [id number] FINAL GYNECOLOGICAL CYTOLOGY REPORT Pathology #: [id number] ?Date Obtained: 03/29/2015 ? Date Received: 03/30/2015 INTERPRETATION/RESULTS: Negative for Intraepithelial Lesion or Malignancy. Fungal organisms morphologically consistent with Angela species. SPECIMEN ADEQUACY: Satisfactory for Evaluation. ??Endocervical cells/transformation zone component present. [id number] Verified on 04/05/2015 ??by GUILLERMINA HERNANDEZ (electronic [...] RN on behalf ofDr. Hortensia Morales, Medical DirectorHoliday [place] Cervical Cancer Screening and Management Anny Daily APRN, WORSTED WINDER LAB_1 HP CONVERSION from Last 3 Months or Most Recently Relevant to Health Maintenance Care Teams Manager Shell Relationship Specialty Start Date End Date Anny Daily, ZINC FURNACE CHARGER, WORSTED WINDER [address] [place] [address] PCP - General Nurse Practitioner 03/20/18
== END 2024-07-17 15:25 | disposition home or self-care (01) ==
LOC: MAMMO 15:24
PROVIDERS: PCP Family Medicine; Visit Provider Physician Assistant
DX: Z12.31 Encounter for screening mammogram for malignant neoplasm of breast (principal)
CPT/HCPCS: 77063; 77067